=== PATIENT | male | born 1945 | race Caucasian/White ===

== ENCOUNTER 2018-04-30 05:39 | Outpatient (CLI) | payer MEDICARE, MEDICAID ==
[~2018-04-30] VITALS: Ht 185.4 cm; Wt 99.8 kg
[~2018-04-30 05:39] MED LIST: AMLO5TAB2 PO; BENA10TA PO; BNZ10T PO; HUM100VI4; HUM100VI4 SQ; HYDR1TAB PO; TMSL.4C PO
[2018-04-30] MEDS ORDERED: ASPI-586 PO (12:09)
[2018-04-30] MEDS ORDERED: LORA10TA7 PO (12:09)
[2018-04-30] MEDS ORDERED: HUM100VI15 SQ (12:09)
[2018-04-30] MEDS ORDERED: MULT-1056 PO (12:09)
[2018-04-30] MEDS ORDERED: BENA5TAB3 PO (12:09)
[2018-04-30] MEDS ORDERED: TAMS0.4C2 PO (12:09)
[2018-04-30] MEDS ORDERED: SIMV10TA PO (12:09)
[2018-04-30] MEDS ORDERED: POTA10TA36 PO (12:09)
[2018-04-30] MEDS ORDERED: ESCI10TA PO (12:09)
[2018-04-30] MEDS ORDERED: PANT40TA3 PO (12:09)
[2018-04-30] MEDS ORDERED: ALPR0.5T PO (12:09)
== END 2018-04-30 12:13 ==
LOC: PREOP 05:39
PROVIDERS: ATTEND Specialist
DX: Z01.818 Encounter for other preprocedural examination (principal)

== ENCOUNTER 2018-05-02 07:05 | Day surgery (SDC) | payer MEDICARE, MEDICAID ==
[~2018-05-02] VITALS: Ht 185.4 cm; Wt 99.8 kg
[~2018-05-02 07:05] MED LIST changes: +ALPR0.5T PO; +ASPI-586 PO; +BENA5TAB3 PO; +ESCI10TA PO; +HUM100VI15 SQ; +LORA10TA7 PO; +MULT-1056 PO; +PANT40TA3 PO; +POTA10TA36 PO; +SIMV10TA PO; +TAMS0.4C2 PO
[2018-05-02] MEDS ORDERED: TIMOLOL MALEATE 0.5% 5 ML (TIMOPTIC) BTL OU PRN (07:15)
[2018-05-02] MEDS ORDERED: LIDOCAINE PF 1% 2 ML AMP IR PRN (07:15)
[2018-05-02] MEDS ORDERED: MOXIFLOXACIN OPHTH SOLN 5 MG/ML 0.3 ML SYRINGE OP ONE (07:15)
[2018-05-02] MEDS ORDERED: POVIDONE (BETADINE) OPHTH SOLN 5% 30 ML OP ONE (07:15)
[2018-05-02] MEDS: TETRACAINE 0.5% OPHTH SOLN 4 ML BTL (SINGLE DOSE ONLY) OU PRN ×4 (07:23→07:40)
[2018-05-02] MEDS: CYCLOPENTOLATE 1% (CYCLOGYL) 2 ML DROPS OP SCH ×3 (07:30→07:40)
[2018-05-02] MEDS: PHENYLEPHRINE 10% OPHTH (NEO-SYN) 5 ML BTL OU SCH ×3 (07:30→07:40)
[2018-05-02 07:33] VITALS: BP 132/86
[2018-05-02] MEDS ORDERED: MIDAZOLAM 2 MG/2 ML (VERSED) VIAL ONE (07:41)
--- NOTE | 2018-05-02 07:45 | Ophthalmologist Pre-Op Note ---
Pre-Operative Progress Note H&P Reviewed The H&P was reviewed, patient examined and no changes noted. Date H&P Reviewed: May 02, 2018 Time H&P Reviewed: 07:45 Pre-Op Dx Cataract, Left Eye BEBO CONNER MD May 02, 2018 07:45
--- NOTE | 2018-05-02 08:16 | Ophthalmology Operative Report ---
Cataract, Miotic Pupil PREOPERATIVE DIAGNOSIS: 1. Cataract Left Eye 2. Miotic Pupil/IFIS POSTOPERATIVE DIAGNOSIS: 1. Cataract Left Eye 2. Miotic Pupil/IFIS PROCEDURE: 1. Cataract removal and placement of posterior chamber implant, left eye 2. Pupillary expansion with malyugin ring SURGEON: Cr Conner ANESTHESIA: Topical with sedation COMPLICATIONS: None ESTIMATED BLOOD LOSS: Minimal DESCRIPTION OF PROCEDURE: After proper informed consent was obtained, the patient, a 72 male, was taken to the Operating Room and the left eye was anesthetized with Tetracaine. The eye was then prepped and draped in the usual manner. A wire lid speculum was placed. A paracentesis was made at the left hand position. Preservative free lidocaine was injected into anterior chamber followed by viscoelastic. A clear corneal incision was made in the temporal position. The malyugin ring was injected into the anterior chamber and the pupil was dilated. A capsulorrhexis was preformed and the central nuclear and cortical material were removed. The posterior capsule was polished and Ortiz 22.5 AU00T0 IOL was placed into the capsular bag. The myalgian ring was removed. The residual viscoelastic was aspirated and the balanced saline solution was injected into the anterior chamber. Moxifloxacin was injected into the anterior chamber. The wound was checked and found to be water tight. The patient tolerated the procedure well without complications. [Limbal Relaxing Incision placed ] [ ]mm at [ ]. CR CONNER MD May 02, 2018 08:16
[2018-05-02 08:27] VITALS: BP 147/68
[2018-05-02] MEDS ORDERED: acetaZOLAMIDE ER 500 MG CAP (DIAMOX SEQUELS) PO ONE (09:00)
--- NOTE | 2018-05-02 12:12 | Anesthesia-General Post-Op ---
MAC Patient Condition Mental Status/LOC: Same as Preop Cardiovascular: Satisfactory Nausea/Vomiting: Absent Respiratory: Satisfactory Pain: Controlled Complications: Absent Post Op Complications Complications None Follow Up Care/Instructions Patient Instructions None needed. Anesthesiology Discharge Order Discharge Order Patient is doing well, no complaints, stable vital signs, no apparent adverse anesthesia problems. No complications reported per nursing. NESTOR MOLINA CRNA May 02, 2018 12:12
--- OUTSIDE RECORDS SUMMARY | 2018-05-04 07:20 | XMS REPORT | CCD ---
Author Author SYLVIA COLLINS Unknown Address [address] [place] [address] Care Team Providers Care Safety Glass Installer Name Role Phone DAVE RAMOS, INGRIS Monteros Allergies Allergy Code Allergy Type Reaction Status No Known Allergies 0 Drug allergy Active Active Medications No Active Medications Problems Unknown or Not Available. Procedures Procedure Code Procedure Type Date Egd transoral biopsy single/multiple 13989 CPT 01/17/2016 Colsc flx w/removal lesion by hot bx forceps; (-[place] diagn 87387 CPT 01/17/2016 BEDSIDE GLUCOSE [id number] SNOMED CT 01/17/2016 PATHOLOGY ORDER [id number] SNOMED CT 01/17/2016 Results BEDSIDE GLUCOSE - Collect Date/Time: 01/17/2016 06:21 Test Name Code Test Result Test Units Test Ref Range GLUCOSE POCT 174 MG/DL L=70 H=100 Function Status Unknown or Not Available. History of Immunizations Unknown or Not Available. Plan of Treatment Unknown or Not Available. Social History Smoking Status Code Start Date End Date Never smoker [id number] Vital Signs Vital Sign Value Unit Date/Time Recent/Initial? Weight Measured 250 [lb_av] 01/12/2016 12:26 Initial VS Height 71 [in_i] 01/12/2016 12:26 Initial VS BMI (Body Mass Index) 34.87 kg/m2 01/12/2016 12:26 Initial VS BSA (Body Surface Area) 2.38 m2 01/12/2016 12:26 Initial VS Function Status Unknown or Not Available. Goals Unknown or Not Available. ASSESSMENTS Unknown or Not Available. Health Concerns Section Unknown or Not Available.
--- OUTSIDE RECORDS SUMMARY | 2018-05-04 07:22 | XMS REPORT ---
Author Author ADRYAN GUTIÉRREZ [facility] Address [address] [place], [place] [id number] Care Team Providers Care Paraplanner Name Role Phone ADRYAN GUTIÉRREZ PCP ADRYAN GUTIÉRREZ PreferredProvider Allergies and Adverse Reactions Name Reaction Notes NO KNOWN DRUG ALLERGIES Plan of Treatment Planned Activity Comments Planned Date Planned Time Plan/Goal Hgb A1c 12/08/2013 12:00 AM Medications Active Name Start Date Estimated Completion Date SIG Comments Humulin 70/30 100 unit/mL (70-30) subcutaneous suspension 03/09/2013 50 UNITS TWICE DAILY Flonase 50 mcg/actuation nasal spray,suspension 12/15/2013 inhale 1 spray by nasal route 2 times a day benazepril 5 mg oral tablet 01/14/2014 TAKE 1 TABLET (5 MG) BY ORAL ROUTE ONCE DAILY BD Insulin Syringe DIRECTED 06/30/2014 0.5ml 31Guage 8mm 07/17 [facility] escitalopram oxalate 20 mg oral tablet 12/16/2014 TAKE 1 TABLET BY MOUTH DAILY ProAir HFA 90 mcg/actuation inhalation HFA aerosol inhaler 03/10/2015 inhale 1 puff (90 mcg) by inhalation route every 6 hours as needed escitalopram oxalate 20 mg oral tablet 04/18/2015 TAKE 1 TABLET BY MOUTH DAILY Flomax 0.4 mg oral capsule,extended release 24hr 10/13/2015 take 2 capsules (0.8 mg) by oral route once daily 1/2 hour following the same meal each day benazepril 5 mg oral tablet 10/13/2015 TAKE 1 TABLET (5 MG) BY ORAL ROUTE ONCE DAILY ipratropium-albuterol 0.5 mg-3 mg(2.5 mg base)/3 mL inhalation solution for nebulization 10/13/2015 inhale 3 milliliters by nebulization route 4 times per day and as needed, up to 6 doses per day Humulin 70/30 100 unit/mL (70-30) subcutaneous suspension 11/09/2015 INJECT 70 UNITS TWICE DAILY - E11.65 Humulin 70/30 100 unit/mL (70-30) subcutaneous suspension 04/09/2016 INJECT 70 UNITS TWICE DAILY - E11.65 hydroxyzine HCl 25 mg oral tablet 05/04/2016 take 2 tablet at HS for itching citalopram 40 mg oral tablet 07/05/2016 take 1 tablet (40 mg) by oral route once daily Flomax 0.4 mg oral capsule,extended release 24hr 08/08/2016 take 2 capsules (0.8 mg) by oral route once daily 1/2 hour following the same meal each day Flomax 0.4 mg oral capsule,extended release 24hr 08/08/2016 take 2 capsules (0.8 mg) by oral route once daily 1/2 hour following the same meal each day COMP- BENADRYL/MALOXX/NYSTAT 5ML BY MOUTH FOUR TIMES DAILY SWISH AND SPIT Percocet 10-325 mg oral tablet 08/30/2016 take 1 tablet by oral route every 6 hours as needed escitalopram oxalate 10 mg oral tablet 11/07/2016 05/01/2018 TAKE 1 TABLET (10 MG) BY ORAL ROUTE ONCE DAILY Klor-Con 10 10 mEq oral tablet extended release 12/13/2016 take 1 tablet by oral route daily for 90 days Protonix 40 mg oral tablet,delayed release (DR/EC) 01/22/2017 take 1 tablet (40 mg) by oral route once daily albuterol sulfate 2.5 mg /3 mL (0.083 %) inhalation solution for nebulization 05/29/2017 used in Small Volume Nebulizer QID PRN simvastatin 20 mg oral tablet 06/25/2017 TAKE ONE TABLET BY MOUTH ONCE DAILY IN THE THE EVENING nitroglycerin 0.4 mg sublingual tablet, sublingual 08/01/2017 place 1 tablet (0.4 mg) by sublingual route PRN fluticasone 50 mcg/actuation nasal spray,suspension 08/27/2017 spray 1 spray (50 mcg) in each nostril by intranasal route once daily promethazine-codeine 6.25-10 mg/5 mL oral syrup 08/29/2017 take 5 milliliters by oral route every 6 hours as needed, not to exceed 30 mL in 24 hours Klor-Con 10 10 mEq oral tablet extended release 09/09/2017 take 1 tablet by oral route daily for 90 days pantoprazole 40 mg oral tablet,delayed release (DR/EC) 12/23/2017 TAKE 1 TABLET BY MOUTH DAILY Xanax 0.5 mg oral tablet 12/25/2017 take 1 tablet (0.5 mg) by oral route 3 times per day Valtrex 500 mg oral tablet 12/25/2017 take 1 tablet (500 mg) by oral route 2 times per day tamsulosin 0.4 mg oral capsule 01/22/2018 TAKE 2 CAPSULES (0.8 MG) BY ORAL ROUTE ONCE DAILY 1/2 HOUR FOLLOWING THE SAME MEAL EACH DAY Lexapro 10 mg oral tablet 02/06/2018 take 1 tablet (10 mg) by oral route once daily escitalopram oxalate 10 mg oral tablet 02/06/2018 TAKE 1 TABLET (10 MG) BY ORAL ROUTE ONCE DAILY alprazolam 0.5 mg oral tablet 03/05/2018 TAKE ONE TABLET BY MOUTH THREE TIMES DAILY Name Start Date Expiration Date SIG Comments Norvasc 5 mg oral tablet 03/17/2009 06/15/2009 1QD - TAKE ONE TABLET BY MOUTH EVERY DAY Zovirax 800 mg oral tablet 03/17/2009 03/25/2009 1Q4HWA - TAKE ONE TABLET BY MOUTH EVERY 4 HOURS WHILE AWAKE Zantac 150 mg oral tablet 03/18/2009 07/16/2009 take 1 tablet (150 mg) by oral route 2 times per day for 30 days Darvocet-N 100 100-650 mg oral tablet 12/06/2009 01/05/2010 take 1 tablet by oral route every 4-6 hours as needed for pain for 30 days indomethacin 50 mg oral capsule 01/18/2011 take 1 capsule (50 mg) by oral route 3 times per day with food Flagyl 500 mg oral tablet 02/16/2011 take 1 tablet by oral route 3 times a day Cipro 500 mg oral tablet 02/16/2011 take 1 tablet (500 mg) by oral route 2 times per day Plavix 75 mg oral tablet 05/18/2011 09/15/2011 take 1 tablet (75 mg) by oral route once daily Levaquin 750 mg oral tablet 07/24/2011 08/03/2011 take 1 tablet (750 mg) by oral route once daily for 10 days Zocor 20 mg oral tablet 10/01/2011 12/30/2011 take 1 tablet (20 mg) by oral route once daily in the evening Percocet 7.5-325 mg oral tablet 10/16/2011 take 1 tablet by oral route every 4 hours as needed for pain Bactrim DS 800-160 mg oral tablet 03/14/2012 03/14/2012 take 1 tablet by oral route 2 times a day Zithromax Z-Heri 250 mg oral tablet 03/14/2012 03/24/2012 take 2 tablets (500 mg) by oral route once daily for 1 day then 1 tablet (250 mg) by oral route once daily for 4 days Cipro 500 mg oral tablet 05/19/2012 take 1 tablet (500 mg) by oral route 2 times per day Bactrim DS 800-160 mg oral tablet 12/01/2012 12/11/2012 take 1 tablet by oral route 2 times a day for 10 days Humulin 70/30 100 unit/mL (70-30) subcutaneous suspension 01/15/20132013 INJECT 50 UNITS SUBCUTANEOUSLY TWICE DAILY Cipro 500 mg oral tablet 01/26/2013 take 1 tablet (500 mg) by oral route 2 times per day doxycycline hyclate 100 mg oral capsule 02/13/2013 02/23/2013 take 1 capsule (100 mg) by oral route every 12 hours for 10 days Vinnie-Tab 500 mg oral tablet,delayed release (DR/EC) 02/27/2013 03/09/2013 take 1 tablet by oral route 2 times a day for 10 days albuterol sulfate 90 mcg/actuation inhalation HFA aerosol inhaler 03/09/201307/07/2013 inhale 2 puffs by inhalation route every 6 hours as needed for 30 days hydrocodone-acetaminophen 7.5-500 mg oral tablet 03/09/2013 take 1 tablet by oral route every 4-6 hours as needed for pain Lomotil 2.5-0.025 mg oral tablet 03/09/2013 take 2 tablets (5 mg) by oral route 4 times per day as needed for radiation diarrhea Phenergan-Codeine 6.25-10 mg/5 mL oral syrup 04/20/2013 take 5 milliliters by oral route 4 times a day Levaquin 500 mg oral tablet 04/20/2013 04/30/2013 take 1 tablet (500 mg) by oral route once daily for 10 days Levaquin 500 mg oral tablet 08/17/2013 08/27/2013 take 1 tablet (500 mg) by oral route once daily for 10 days Levaquin 500 mg oral tablet 09/09/2013 09/19/2013 take 1 tablet (500 mg) by oral route once daily for 10 days Zithromax Z-Heri 250 mg oral tablet 09/30/2013 take 2 tablets (500 mg) by oral route once daily for 1 day then 1 tablet (250 mg) by oral route once daily for 4 days Zithromax Z-Heri 250 mg oral tablet 12/30/2013 take 2 tablets (500 mg) by oral route once daily for 1 day then 1 tablet (250 mg) by oral route once daily for 4 days Tessalon Perles 100 mg oral capsule 12/30/2013 take 1 capsule (100 mg) by oral route every 4 hours as needed Zithromax Z-Heri 250 mg oral tablet 04/11/2014 take 2 tablets (500 mg) by oral route once daily for 1 day then 1 tablet (250 mg) by oral route once daily for 4 days Percocet 7.5-325 mg oral tablet 04/11/2014 take 1 tablet by oral route every 6 hours as needed Xanax 0.5 mg oral tablet 02/03/2015 08/02/2015 take 1 tablet by oral route 3 times a day for 30 days Zithromax Z-Heri 250 mg oral tablet 03/10/2015 03/15/2015 take 2 tablets (500 mg ) by oral route once daily for 1 day then 1 tablet (250 mg) by oral route once daily for 4 days Flonase 50 mcg/actuation nasal spray,suspension 06/16/2015 inhale 1 spray by nasal route 2 times a day diazepam 5 mg oral tablet 01/07/2016 06/05/2016 take 1 tablet (5 mg) by oral route 2 times per day for 30 days Levaquin 500 mg oral tablet 04/02/2016 04/12/2016 take 1 tablet (500 mg) by oral route once daily for 10 days Bactrim DS 800-160 mg oral tablet 05/04/2016 05/14/2016 take 1 tablet by oral route 2 times a day for 10 days Bactroban 2 % topical cream 05/04/2016 apply a small amount to the affected area by topical route 3 times per day benazepril 5 mg oral tablet 05/16/2016 11/12/2016 take 1 tablet (5 mg) by oral route once daily for 30 days Symbicort 160-4.5 mcg/actuation inhalation HFA aerosol inhaler 06/19/201610/17 inhale 2 puffs by inhalation route 2 times per day in the morning and evening for 30 days Levaquin 500 mg oral tablet 06/13/2016 06/23/2016 take 1 tablet (500 mg) by oral route once daily for 10 days Zofran ODT 4 mg oral tablet,disintegrating 01/15/2017 01/21/2017 take 2 tablets (8 mg) and place on top of the tongue where they will dissolve, then swallow by oral route every 8 hours Zithromax Z-Heri 250 mg oral tablet 03/12/2017 take 2 tablets (500 mg) by oral route once daily for 1 day then 1 tablet (250 mg) by oral route once daily for 4 days Humulin 70/30 U-100 Insulin 100 unit/mL (70-30) subcutaneous suspension 201701/18/2018 INJECT 70 UNITS TWICE DAILY benazepril 5 mg oral tablet 05/31/2017 12/27/2017 take 1 tablet (5 mg) by oral route once daily for 30 days Patanol 0.1 % ophthalmic (eye) drops 09/12/2017 09/19/2017 instill 1 - 2 drops into affected eye(s) by ophthalmic route 2 times per day at an interval of 6 to 8 hours for 7 days Zithromax Z-Heri 250 mg oral tablet 01/27/2018 02/01/2018 take 2 tablets (500 mg) by oral route once daily for 1 day then 1 tablet (250 mg) by oral route once daily for 4 days Levaquin 500 mg oral tablet 03/14/2018 03/24/2018 take 1 tablet (500 mg) by oral route once daily for 10 days Discontinued Name Start Date Discontinued Date SIG Comments Percocet 5-325 mg oral tablet 02/28/2009 12/06/2009 take 1 tablet by oral route every 6 hours as needed Darvocet-N 100 Oral tablet 09/01/2009 12/06/2009 take 1 tabletby oral route every 4 hours Patanol 0.1 % ophthalmic drops 11/01/2013 12/10/2015 instill 1 drop into affected eye(s) by ophthalmic route 2 times per day at an interval of 6 to 8 hours Spiriva with HandiHaler 18 mcg inhalation capsule, w/inhalation device 201406/19/2016 inhale 1 capsule (18 mcg) by inhalation route once daily Only 10-325 mg oral tablet 03/10/2015 12/10/2015 take 1 tablet by oral route every 6 hours as needed for pain Levaquin 500 mg oral tablet 10/16/2015 12/10/2015 take 1 tablet (500 mg) by oral route once daily Ventolin HFA 90 mcg/actuation inhalation HFA aerosol inhaler 12/29/20152017 inhale 1 puff (90 mcg) by inhalation route every 6 hours as needed Problem List Description Status Onset Anxiety Active Arthritis unspecified Active Diabetes Mellitus, Type II Active Hypertension Active Osteoarthritis Active Chronic Obstructive Pulmonary Disease Active arteriosclerotic heart disease Active Coronary artery disease Active Prostate Cancer Active Bronchitis, chronic Active 12/30/2013 Constipation Active 02/18/2014 Chronic pain Active 04/11/2014 History of atrial fibrillation Active 06/14/2014 Learning difficulty involving reading Active 12/10/2015 Pickwickian syndrome Active 12/10/2015 COPD (chronic obstructive pulmonary disease) Active 12/10/2015 Onychomycosis Active 09/27/2016 Vital Signs Date Time BP-Sys(mm[Hg] BP-Darline(mm[Hg]) HR(bpm) RR(rpm) Temp WT HT HC BMI BSA BMI Percentile O2 Sat(%) 04/14/2018 2:42:00 PM 112 mmHg 78 mmHg 78 bpm 16 rpm 98.2 F 263 lbs 98 % 10/29/2017 8:11:00 AM 100 mmHg 60 mmHg 70 bpm 18 rpm 96.5 F 268 lbs 73 in 35.36 kg/m2 2.5022 m 95 % 09/10/2017 9:14:00 AM 138 mmHg 74 mmHg 65 bpm 18 rpm 98.2 F 269 lbs 72 in 36.4826 kg/m 2.49 m2 98 % 08/26/2017 9:48:00 AM 124 mmHg 80 mmHg 80 bpm 18 rpm 98.1 F 271 lbs 72 in 36.75 kg/m2 2.4989 m 98 % 05/29/2017 1:44:00 PM 142 mmHg 80 mmHg 70 bpm 18 rpm 94 F 266 lbs 72 in 36.0757 kg/m 2.48 m2 96 % 01/28/2017 10:23:00 AM 142 mmHg 80 mmHg 68 bpm 16 rpm 97.1 F 263 lbs 72 in 35.67 kg/m2 2.4617 m 98 % 11/09/2016 6:33:00 AM 142 mmHg 84 mmHg 72 bpm 16 rpm 98.2 F 255 lbs 72 in 34.5839 kg/m 2.42 m2 95 % 10/16/2016 1:01:00 PM 118 mmHg 74 mmHg 48 bpm 16 rpm 98 F 253 lbs 72 in 34.31 kg/m2 2.4145 m 98 % 10/03/2016 2:19:00 PM 112 mmHg 60 mmHg 70 bpm 16 rpm 97.4 F 263 lbs 96 % 10/01/2016 10:07:00 AM 92 mmHg 62 mmHg 82 bpm 16 rpm 95.3 F 72 in 96 % 09/28/2016 9:56:00 AM 132 mmHg 80 mmHg 80 bpm 16 rpm 97.7 F 258 lbs 72 in 34.99 kg/m2 2.4382 m 95 % 09/27/2016 5:13:00 PM 126 mmHg 84 mmHg 78 bpm 16 rpm 97.4 F 258 lbs 72 in 34.9907 kg/m 2.44 m2 96 % 06/18/2016 1:13:00 PM 114 mmHg 72 mmHg 76 bpm 18 rpm 94.2 F 258 lbs 72 in 34.99 kg/m2 2.4382 m 96 % 06/13/2016 1:04:00 PM 128 mmHg 60 mmHg 74 bpm 18 rpm 96.1 F 260 lbs 72 in 35.262 kg/m 2.45 m2 95 % 05/04/2016 11:21:00 AM 108 mmHg 70 mmHg 86 bpm 18 rpm 97.4 F 260.375 lbs 72 in 35.31 kg/m2 2.4494 m 95 % 04/02/2016 6:49:00 AM 132 mmHg 86 mmHg 86 bpm 16 rpm 97.2 F 259 lbs 72 in 35.1264 kg/m 2.44 m2 98 % 01/09/2016 1:55:00 PM 118 mmHg 64 mmHg 66 bpm 20 rpm 96.6 F 259 lbs 72 in 35.13 kg/m2 2.443 m 96 % 01/06/2016 11:43:00 AM 125 mmHg 78 mmHg 60 bpm 16 rpm 97.8 F 257 lbs 72 in 34.8551 kg/m 2.43 m2 98 % 12/09/2015 10:26:00 AM 125 mmHg 72 mmHg 68 bpm 16 rpm 98.2 F 254 lbs 74 in 32.61 kg/m2 2.4526 m 96 % 10/13/2015 10:07:00 AM 118 mmHg 68 mmHg 64 bpm 16 rpm 97.4 F 259 lbs 72 in 35.1264 kg/m 2.44 m2 98 % 07/15/2015 11:35:00 AM 135 mmHg 70 mmHg 65 bpm 18 rpm 97.4 F 254.375 lbs 72 in 34.50 kg/m2 2.421 m 95 % 06/16/2015 10:56:00 AM 135 mmHg 78 mmHg 80 bpm 18 rpm 98 F 255 lbs 95 % 03/10/2015 10:05:00 AM 132 mmHg 88 mmHg 62 bpm 16 rpm 96.7 F 255 lbs 72 in 34.5839 kg/m 2.424 m 95 % 11/26/2014 10:43:00 AM 130 mmHg 70 mmHg 70 bpm 20 rpm 97.8 F 252 lbs 72 in 34.18 kg/m2 2.41 m2 96 % 08/09/2014 10:53:00 AM 100 mmHg 70 mmHg 80 bpm 18 rpm 96.4 F 256 lbs 72 in 34.7195 kg/m 2.4288 m 96 % 06/16/2014 10:58:00 AM 120 mmHg 70 mmHg 66 bpm 18 rpm 97.3 F 255 lbs 72 in 34.58 kg/m2 2.42 m2 97 % 06/11/2014 11:32:00 AM 110 mmHg 70 mmHg 70 bpm 20 rpm 95.9 F 251 lbs 72 in 34.04 kg/m2 2.4049 m 94 % 05/31/2014 10:38:00 AM 95 mmHg 60 mmHg 80 bpm 22 rpm 97.5 F 256 lbs 71 in 35.7044 kg/m 2.41 m2 94 % 05/03/2014 10:30:00 AM 125 mmHg 70 mmHg 71 bpm 18 rpm 96.5 F 258 lbs 72 in 34.99 kg/m2 2.4382 m 95 % 04/06/2014 10:13:00 AM 102 mmHg 68 mmHg 71 bpm 18 rpm 96.6 F 261.375 lbs 72 in 35.4485 kg/m 2.45 m2 97 % 02/17/2014 10:14:00 AM 138 mmHg 70 mmHg 66 bpm 22 rpm 94.6 F 256 lbs 72 in 34.72 kg/m2 2.4288 m 95 % 12/28/2013 10:00:00 AM 126 mmHg 72 mmHg 74 bpm 22 rpm 95.6 F 256 lbs 72 in 34.7195 kg/m 2.43 m2 95 % 10/30/2013 10:26:00 AM 134 mmHg 64 mmHg 68 bpm 16 rpm 96.6 F 255 lbs 72 in 34.58 kg/m2 2.424 m 97 % 09/29/2013 11:25:00 AM 102 mmHg 68 mmHg 61 bpm 18 rpm 96.7 F 257.5 lbs 72 in 34.9229 kg/m 2.44 m2 95 % 09/07/2013 10:11:00 AM 154 mmHg 80 mmHg 74 bpm 24 rpm 96.3 F 254 lbs 72 in 34.45 kg/m2 2.4193 m 97 % 08/17/2013 10:06:00 AM 118 mmHg 62 mmHg 76 bpm 24 rpm 97.2 F 254 lbs 72 in 34.4482 kg/m 2.42 m2 97 % 05/29/2013 8:47:00 AM 140 mmHg 78 mmHg 60 bpm 24 rpm 98.5 F 253 lbs 72 in 34.31 kg/m2 2.4145 m 96 % 04/27/2013 10:04:00 AM 112 mmHg 60 mmHg 72 bpm 24 rpm 96 F 252 lbs 72 in 34.177 kg/m 2.41 m2 96 % 04/17/2013 10:09:00 AM 130 mmHg 64 mmHg 70 bpm 22 rpm 97.1 F 249 lbs 72 in 33.77 kg/m2 2.3953 m 95 % 03/30/2013 10:30:00 AM 110 mmHg 60 mmHg 72 bpm 24 rpm 96.6 F 250 lbs 72 in 33.9057 kg/m 2.40 m2 95 % 01/26/2013 9:54:00 AM 106 mmHg 60 mmHg 76 bpm 24 rpm 96.4 F 250 lbs 72 in 33.91 kg/m2 2.4001 m 98 % 12/01/2012 9:55:00 AM 120 mmHg 70 mmHg 66 bpm 18 rpm 98.8 F 252 lbs 72 in 34.177 kg/m 2.41 m2 96 % 06/23/2012 10:35:00 AM 120 mmHg 60 mmHg 76 bpm 20 rpm 95.4 F 249 lbs 72 in 33.77 kg/m2 2.3953 m 96 % 05/19/2012 9:43:00 AM 130 mmHg 60 mmHg 90 bpm 24 rpm 96.3 F 251.312 lbs 72 in 34.0838 kg/m 2.41 m2 94 % 01/08/2012 1:21:00 PM 100 mmHg 65 mmHg 78 bpm 18 rpm 95.6 F 242 lbs 72 in 32.82 kg/m2 2.3614 m 97 % 12/11/2011 10:36:00 AM 126 mmHg 62 mmHg 76 bpm 18 rpm 95.7 F 235 lbs 74 in 30.1719 kg/m 2.36 m2 98 % 10/09/2011 8:47:00 AM 140 mmHg 80 mmHg 88 bpm 225 lbs 72 in 30.52 kg/m2 2.277 m 08/28/2011 9:30:00 AM 108 mmHg 72 mmHg 76 bpm 228 lbs 72 in 30.92 kg/m2 2.29 m2 97 % 08/01/2011 8:51:00 AM 112 mmHg 64 mmHg 64 bpm 229 lbs 72 in 31.0577 kg/m 2.2971 m 97 % 07/17/2011 10:41:00 AM 85 mmHg 58 mmHg 77 bpm 20 rpm 96.8 F 229 lbs 72 in 31.06 kg/m2 2.30 m2 97 % 07/11/2011 9:33:00 AM 108 mmHg 62 mmHg 82 bpm 229 lbs 72 in 31.0577 kg/m 2.2971 m 97 % 06/22/2011 10:38:00 AM 96 mmHg 64 mmHg 80 bpm 229 lbs 72 in 31.06 kg/m2 2.30 m2 96 % 05/15/2011 10:21:00 AM 110 mmHg 68 mmHg 78 bpm 225 lbs 72 in 30.5152 kg/m 2.277 m 98 % 04/10/2011 9:55:00 AM 118 mmHg 72 mmHg 68 bpm 224 lbs 72 in 30.38 kg/m2 2.27 m2 04/03/2011 8:35:00 AM 118 mmHg 72 mmHg 80 bpm 224 lbs 72 in 30.3795 kg/m 2.2719 m 02/16/2011 9:22:00 AM 108 mmHg 66 mmHg 71 bpm 224 lbs 72 in 30.38 kg/m2 2.27 m2 97 % 01/18/2011 9:52:00 AM 124 mmHg 68 mmHg 60 bpm 224 lbs 72 in 30.3795 kg/m 2.2719 m 96 % 08/07/2010 9:26:00 AM 110 mmHg 72 mmHg 80 bpm 222 lbs 96 % 05/15/2010 11:11:00 AM 112 mmHg 60 mmHg 65 bpm 224 lbs 95 % 02/16/2010 8:14:00 AM 114 mmHg 72 mmHg 72 bpm 221 lbs 10/14/2009 9:08:00 AM 122 mmHg 76 mmHg 78 bpm 220 lbs 98 % 07/11/2009 10:37:00 AM 120 mmHg 74 mmHg 75 bpm 228 lbs 95 % 02/28/2009 9:40:00 AM 128 mmHg 74 mmHg 74 bpm 229 lbs 97 % Social History Name Description Comments Alcohol Never Tobacco Former smoker 8th grade Active but no formal exercise Uses seatbelts History of Procedures Date Ordered Description Order Status 03/25/2015 12:00 AM Decadron, Per 1 Mg [facility]# [address]-69 Reviewed 03/25/2015 12:00 AM Depo-Medrol, Per 80 Mg [facility]#3523-5864-77 Reviewed 03/25/2015 12:00 AM Rocephin 1 gram [facility]#7997-9310-83 Reviewed 06/16/2015 12:00 AM Decadron, Per 1 Mg [facility]# [address]-48 Reviewed 06/16/2015 12:00 AM Rocephin 1 gram [facility]#9824-0843-03 Reviewed 07/14/2015 12:00 AM Removal impacted cerumen using irrigation/lavage, unilateral Reviewed 04/03/2011 12:00 AM ROUTINE VENIPUNCTURE Reviewed 04/03/2011 12:00 AM COMPLETE CBC AUTOMATED Reviewed 04/03/2011 12:00 AM COMPREHEN METABOLIC PANEL Reviewed 04/03/2011 12:00 AM GLYCOSYLATED HEMOGLOBIN TEST Reviewed 04/03/2011 12:00 AM LIPID PANEL Reviewed 04/03/2011 12:00 AM Prostate Cancer Screening PSA Reviewed 04/03/2011 12:00 AM MICROALBUMIN SEMIQUANT Reviewed 04/03/2011 12:00 AM THER/PROPH/DIAG INJ SC/IM Reviewed 04/03/2011 12:00 AM Decadron Inj.1mg-(St.Tr) [facility] #[id number] Reviewed 04/03/2011 12:00 AM Depo-Medrol 80 Mg Im/St Tr [facility] 0009-371985 Reviewed 10/13/2015 12:00 AM Decadron, Per 1 Mg [facility]# [address]-60 Reviewed 10/13/2015 12:00 AM Rocephin 1 gram [facility]#5798-0046-70 Reviewed 07/11/2011 12:00 AM THER/PROPH/DIAG INJ SC/IM Reviewed 07/11/2011 12:00 AM Decadron Inj.1mg-(St.Tr) [facility] #[id number] Reviewed 07/11/2011 12:00 AM Depo-Medrol 80 Mg Im/St Tr [facility] 0009-783824 Reviewed 07/11/2011 12:00 AM Rocephin, Per 250MG - 1 Gram Vial [facility] [id number]-Qi Paul Reviewed 04/01/2016 12:00 AM THERAPEUTIC PROPHYLACTIC/DX INJECTION SUBQ/IM Reviewed 04/01/2016 12:00 AM Decadron 8mg Injection, [facility] Medicare Reviewed 06/13/2016 12:00 AM THER/PROPH/DIAG INJ SC/IM Reviewed 06/13/2016 12:00 AM Decadron 8mg Injection, [facility] Medicare Reviewed 06/13/2016 12:00 AM Rocephin 1 gram Injection, [facility] Medicare Reviewed 10/09/2011 12:00 AM ROUTINE VENIPUNCTURE Reviewed 10/09/2011 12:00 AM COMPLETE CBC W/AUTO DIFF WBC Reviewed 10/09/2011 12:00 AM COMPREHEN METABOLIC PANEL Reviewed 10/09/2011 12:00 AM GLYCOSYLATED HEMOGLOBIN TEST Reviewed 10/09/2011 12:00 AM LIPID PANEL Reviewed 10/09/2011 12:00 AM MICROALBUMIN SEMIQUANT Reviewed 09/28/2016 12:00 AM THERAPEUTIC PROPHYLACTIC/DX INJECTION SUBQ/IM Reviewed 09/28/2016 12:00 AM Decadron 8mg Injection, [facility] Medicare Reviewed 09/28/2016 12:00 AM Rocephin 1 gram Injection, [facility] Medicare Reviewed 05/20/2009 12:00 AM ROUTINE VENIPUNCTURE Reviewed 05/20/2009 12:00 AM ASSAY OF PSA FREE Reviewed 05/20/2009 12:00 AM ASSAY OF PSA TOTAL Reviewed 01/08/2012 12:00 AM THER/PROPH/DIAG INJ SC/IM Reviewed 01/08/2012 12:00 AM Rocephin 1 gram [facility]#8530-4575-27 Reviewed 01/28/2017 12:00 AM THERAPEUTIC PROPHYLACTIC/DX INJECTION SUBQ/IM Reviewed 01/28/2017 12:00 AM Rocephin 1 gram Injection, [facility] Medicare Reviewed 02/08/2012 12:00 AM Flu Injection 3 Years And Above [facility]# [address]-34 [facility] Reviewed 02/08/2012 12:00 AM PNEUMOCOCCAL VACC 23 EVY IM Reviewed 05/29/2017 12:00 AM THERAPEUTIC PROPHYLACTIC/DX INJECTION SUBQ/IM Reviewed 05/29/2017 12:00 AM Decadron 8mg Injection, [facility] Reviewed 05/19/2012 12:00 AM THER/PROPH/DIAG INJ SC/IM Reviewed 05/19/2012 12:00 AM Decadron, Per 1 Mg [facility]# [address]-73 Reviewed 05/19/2012 12:00 AM Rocephin 1 gram [facility]#5967-6244-19 Reviewed 09/10/2017 12:00 AM COMPLETE CBC W/AUTO DIFF WBC Returned 09/10/2017 12:00 AM COMPREHEN METABOLIC PANEL Returned 09/10/2017 12:00 AM GLYCOSYLATED HEMOGLOBIN TEST Returned 09/10/2017 12:00 AM LIPID PANEL Returned 09/10/2017 12:00 AM ASSAY OF PSA TOTAL Returned 09/10/2017 12:00 AM ASSAY OF PSA FREE Returned 09/10/2017 12:00 AM ROUTINE VENIPUNCTURE Reviewed 06/23/2012 12:00 AM THER/PROPH/DIAG INJ SC/IM Reviewed 06/23/2012 12:00 AM Decadron, Per 1 Mg [facility]# [address]-03 Reviewed 06/23/2012 12:00 AM Depo-Medrol, Per 80 Mg [facility]#0457-0797-96 Reviewed 10/29/2017 12:00 AM THERAPEUTIC PROPHYLACTIC/DX INJECTION SUBQ/IM Reviewed 10/29/2017 12:00 AM Decadron 8mg Injection, [facility] Reviewed 10/29/2017 12:00 AM Depo-Medrol 80mg Injection, [facility] Reviewed 12/01/2012 12:00 AM THER/PROPH/DIAG INJ SC/IM Reviewed 12/01/2012 12:00 AM Decadron, Per 1 Mg [facility]# [address]-82 Reviewed 12/01/2012 12:00 AM Depo-Medrol, Per 80 Mg [facility]#8324-3819-43 Reviewed 07/11/2009 12:00 AM Toradol 15 Mg,[facility]#[id number] Reviewed 01/26/2013 12:00 AM THER/PROPH/DIAG INJ SC/IM Reviewed 01/26/2013 12:00 AM Decadron, Per 1 Mg [facility]# [address]-14 Reviewed 04/17/2013 12:00 AM THER/PROPH/DIAG INJ SC/IM Reviewed 04/17/2013 12:00 AM Decadron, Per 12 Mg [facility]# [address]-39 Reviewed 04/27/2013 12:00 AM THER/PROPH/DIAG INJ SC/IM Reviewed 04/27/2013 12:00 AM Decadron, Per 12 Mg [facility]# [address]-56 Reviewed 04/27/2013 12:00 AM Rocephin 1 gram [facility]#4660-8149-91 Reviewed 05/29/2013 12:00 AM COMPLETE CBC W/AUTO DIFF WBC Reviewed 05/29/2013 12:00 AM COMPREHEN METABOLIC PANEL Reviewed 05/29/2013 12:00 AM GLYCOSYLATED HEMOGLOBIN TEST Reviewed 05/29/2013 12:00 AM LIPID PANEL Reviewed 05/29/2013 12:00 AM ASSAY OF PSA TOTAL Reviewed 05/29/2013 12:00 AM ROUTINE VENIPUNCTURE Reviewed 05/29/2013 12:00 AM THER/PROPH/DIAG INJ SC/IM Reviewed 05/29/2013 12:00 AM Decadron, Per 12 Mg [facility]# [address]-57 Reviewed 02/16/2010 12:00 AM ROUTINE VENIPUNCTURE Reviewed 02/16/2010 12:00 AM METABOLIC PANEL TOTAL CA Reviewed 02/16/2010 12:00 AM GLYCOSYLATED HEMOGLOBIN TEST Reviewed 08/17/2013 12:00 AM THER/PROPH/DIAG INJ SC/IM Reviewed 08/17/2013 12:00 AM Decadron, Per 1 Mg [facility]# [address]-69 Reviewed 08/17/2013 12:00 AM Rocephin 1 gram [facility]#3980-2456-89 Reviewed 09/07/2013 12:00 AM THER/PROPH/DIAG INJ SC/IM Reviewed 09/07/2013 12:00 AM Decadron, Per 1 Mg [facility]# [address]-45 Reviewed 09/29/2013 12:00 AM THER/PROPH/DIAG INJ SC/IM Reviewed 09/29/2013 12:00 AM Decadron, Per 1 Mg ND# [address]-42 Reviewed 09/29/2013 12:00 AM Rocephin 1 gram ND#2252-9579-76 Reviewed 12/28/2013 12:00 AM THER/PROPH/DIAG INJ SC/IM Reviewed 12/28/2013 12:00 AM Decadron, Per 1 Mg ND# [address]-92 Reviewed 02/17/2014 12:00 AM IMMUNIZATION ADMIN Reviewed 02/17/2014 12:00 AM THER/PROPH/DIAG INJ SC/IM Reviewed 02/17/2014 12:00 AM Decadron, Per 1 Mg ND# [address]-29 Reviewed 02/17/2014 12:00 AM Depo-Medrol, Per 80 Mg ND#3992-1631-53 Reviewed 02/17/2014 12:00 AM Rocephin 1 gram [facility]#5502-4104-69 Reviewed 04/06/2014 12:00 AM THER/PROPH/DIAG INJ SC/IM Reviewed 04/06/2014 12:00 AM Rocephin 1 gram NDC#0881-5765-32 Reviewed 05/03/2014 12:00 AM THER/PROPH/DIAG INJ SC/IM Reviewed 05/03/2014 12:00 AM Decadron, Per 1 Mg [facility]# [address]-32 Reviewed 05/03/2014 12:00 AM Rocephin 1 gram [facility]#8633-6219-07 Reviewed 05/31/2014 12:00 AM THER/PROPH/DIAG INJ SC/IM Reviewed 05/31/2014 12:00 AM Decadron, Per 1 Mg [facility]# [address]-60 Reviewed Results Summary Date and Description Results 02/16/2010 4:41 PM GLYCOHEMOGLOBIN A1C 8.20 %GLUCOSE 196.0 mg/dLSODIUM 137.0 mmol/LPOTASSIUM 4.90 mmol/LCHLORIDE 102.0 mmol/LCO2 23.0 mmol/LBUN 21.0 mg/ dLCREATININE 1.0 mg/dLCALCIUM 9.70 mg/dLAGE 64 GFR NonAA 75 GFR AA 91 eGFR >60 mL/min/1.73 m2eGFR AA* >60 04/03/2011 3:59 PM WBC 5.7 RBC 5.39 HGB 16.50 g/dLHCT 48.40 %MCV 90.0 fLMCH 30.60 pgMCHC 34.10 g/dLRDW SD 42 RDW CV 13.0 %MPV 11.40 fLPLT 235 NRBC# 0.04 NRBC% 0.7 GLUCOSE 207.0 mg/dLSODIUM 137.0 mmol/LPOTASSIUM 5.10 mmol/LCHLORIDE 101.0 mmol/LCO2 27.0 mmol/LBUN 19.0 mg/dLCREATININE 1.0 mg/dLSGOT/AST 19.0 IU/ LSGPT/ALT 26.0 IU/LALK PHOS 118.0 IU/LTOTAL PROTEIN 6.80 g/dLALBUMIN 4.60 g/ dLTOTAL BILI 0.80 mg/dLCALCIUM 9.60 mg/dLAGE 65 GFR NonAA 75 GFR AA 91 eGFR >60 mL/min/1.73 m2eGFR AA* >60 TRIGLYCERIDES 132.0 mg/dLCHOLESTEROL 109.0 mg/dLHDL 32.0 mg/dLTOT CHOL/HDL 3.4 LDL (CALC) 51.0 mg/dLCREAT UR 101.60 mg/ dLMICROALBUMIN UR 32.0 ug/mLALB:CREAT RATIO 31 PSA TOTAL 9.170 ng/ mLGLYCOHEMOGLOBIN A1C 9.40 % 10/09/2011 3:45 PM GLUCOSE 211.0 mg/dLSODIUM 138.0 mmol/LPOTASSIUM 4.30 mmol/ LCHLORIDE 106.0 mmol/LCO2 22.0 mmol/LBUN 17.0 mg/dLCREATININE 0.90 mg/dLSGOT/ AST 10.0 IU/LSGPT/ALT 9.0 IU/LALK PHOS 105.0 IU/LTOTAL PROTEIN 6.50 g/dLALBUMIN 4.30 g/dLTOTAL BILI 0.70 mg/dLCALCIUM 9.50 mg/dLAGE 66 GFR NonAA 84 GFR AA 102 eGFR 60 eGFR AA* 60 TRIGLYCERIDES 137.0 mg/dLCHOLESTEROL 108.0 mg/dLHDL 25.0 mg/ dLTOT CHOL/HDL 4.3 LDL (CALC) 56.0 mg/dLWBC 7.2 RBC 5.06 HGB 15.30 g/dLHCT 45.0 %MCV 89.0 fLMCH 30.20 pgMCHC 34.0 g/dLRDW SD 42 RDW CV 13.20 %MPV 11.0 fLPLT 260 NRBC# 0.00 NRBC% 0.0 GLYCOHEMOGLOBIN A1C 10.50 % 05/29/2013 3:39 PM WBC 4.6 RBC 5.16 HGB 15.70 g/dLHCT 46.90 %MCV 91.0 fLMCH 30.40 pgMCHC 33.50 g/dLRDW SD 46 RDW CV 14.0 %MPV 10.80 fLPLT 208 NRBC# 0.00 NRBC% 0.0 %NEUT 63.0 %%LYMP 23.80 %%MONO 10.0 %%EOS 2.80 %%BASO 0.40 %#NEUT 2.91 #LYMP 1.10 #MONO 0.46 #EOS 0.13 #BASO 0.02 MANUAL DIFF NOT IND GLUCOSE 99.0 mg/dLSODIUM 139.0 mmol/LPOTASSIUM 4.50 mmol/LCHLORIDE 105.0 mmol/LCO2 25.0 mmol/LBUN 20.0 mg/dLCREATININE 1.0 mg/dLSGOT/AST 20.0 IU/LSGPT/ALT 19.0 IU/LALK PHOS 106.0 IU/LTOTAL PROTEIN 6.10 g/dLALBUMIN 3.90 g/dLTOTAL BILI 0.70 mg/ dLCALCIUM 8.60 mg/dLAGE 68 GFR NonAA 74 GFR AA 90 eGFR 60 eGFR AA* 60 PSA TOTAL 0.620 ng/mLTRIGLYCERIDES 87.0 mg/dLCHOLESTEROL 107.0 mg/dLHDL 36.0 mg/dLTOT CHOL /HDL 3.0 LDL (CALC) 54.0 mg/dL History Of Immunizations Name Date Admin Mfg Name Mfg Code Trade Name Lot# Route Inj Vis Given Vis Pub CVX X 02/08/2012 [employer] MSD PNEUMOVAX 23 [id number] Intramuscular Left Deltoid 02/08/2012 06/17/2009 999 Influenza 12/29/2013 Not Entered NE Not Entered Not Entered Not Entered 12/29/2013 03/04/2018 141 History of Past Illness Name Date of Onset Comments Herpes Zoster Feb 28 2009 9:45AM Anxiety Arthritis unspecified Diabetes Mellitus, Type II Hypertension Elevated Prostate Specific Antigen (PSA) May 20 2009 9:51AM Diabetes Mellitus, Type II Jul 11 2009 10:39AM Osteoarthrosis, generalized, multiple sites Jul 11 2009 10:39AM Tendinitis Jul 11 2009 10:39AM Coronary artery disease arteriosclerotic heart disease Chronic Obstructive Pulmonary Disease Osteoarthritis Prostate Cancer Diabetes Mellitus, Type II Oct 14 2009 9:10AM Hyperlipidemia, unspecified Oct 14 2009 9:10AM Depressive Disorder Oct 14 2009 9:10AM Tobacco Abuse Oct 14 2009 9:10AM Chronic Obstructive Pulmonary Disease Oct 14 2009 9:10AM Coronary Artery Disease Oct 14 2009 9:10AM Bronchitis, chronic 12/30/2013 Constipation 02/18/2014 Chronic pain 04/11/2014 Osteoarthrosis Feb 16 2010 8:16AM Diabetes Mellitus, Type II Feb 16 2010 8:16AM Hyperlipidemia, unspecified Feb 16 2010 8:16AM Tobacco Abuse Feb 16 2010 8:16AM Coronary Artery Disease Feb 16 2010 8:16AM History of atrial fibrillation 06/14/2014 Cough May 15 2010 11:12AM Bronchitis, Acute May 15 2010 11:12AM Chronic Obstructive Pulmonary Disease, Decompensated May 15 2010 11:12AM Diabetes Mellitus, Type II May 15 2010 11:12AM Coronary Artery Disease May 15 2010 11:12AM Learning difficulty involving reading 12/10/2015 Pickwickian syndrome 12/10/2015 COPD (chronic obstructive pulmonary disease) 12/10/2015 Colonic Polyps, Personal History of 01/17/16 Hyperplastic polyp @ ascending colon Osteoarthrosis Aug 07 2010 9:25AM Diabetes Mellitus, Type II Aug 07 2010 9:25AM Hyperlipidemia, unspecified Aug 07 2010 9:25AM Coronary Artery Disease Aug 07 2010 9:25AM Chronic pain Aug 07 2010 9:25AM Depression Onychomycosis 09/27/2016 Brain tumor Gout Jan 18 2011 9:49AM Pain in right hand-2nd and 3rd digit Jan 18 2011 9:49AM Diabetes Mellitus, Type II Feb 16 2011 9:24AM Tobacco Abuse Feb 16 2011 9:24AM Constipation Feb 16 2011 9:24AM Abdominal Pain, lower Feb 16 2011 9:24AM Coronary Artery Disease Feb 16 2011 9:24AM Essential Hypertension Apr 03 2011 8:40AM Osteoarthrosis Apr 03 2011 8:40AM Diabetes Mellitus, Type II Apr 03 2011 8:40AM Tobacco Abuse Apr 03 2011 8:40AM Chronic Obstructive Pulmonary Disease Apr 03 2011 8:40AM Coronary Artery Disease Apr 03 2011 8:40AM Osteoarthrosis Apr 10 2011 9:57AM Diabetes Mellitus, Type II Apr 10 2011 9:57AM Tobacco Abuse Apr 10 2011 9:57AM Chronic Obstructive Pulmonary Disease Apr 10 2011 9:57AM Coronary Artery Disease Apr 10 2011 9:57AM Diabetes Mellitus, Type II May 15 2011 10:23AM Anxiety Disorder May 15 2011 10:23AM Insomnia May 15 2011 10:23AM Chronic Obstructive Pulmonary Disease May 15 2011 10:23AM Prostate Cancer May 15 2011 10:23AM Essential Hypertension Jun 22 2011 10:44AM Diabetes Mellitus, Type II Jun 22 2011 10:44AM Tobacco Abuse Jun 22 2011 10:44AM Chronic Obstructive Pulmonary Disease Jun 22 2011 10:44AM Coronary Artery Disease Jun 22 2011 10:44AM Prostate Cancer Jun 22 2011 10:44AM Bronchitis, Acute Jul 11 2011 9:35AM Cough Jul 17 2011 10:42AM Bronchitis, Acute Jul 17 2011 10:42AM Post-nasal drainage Jul 17 2011 10:42AM Bronchitis, Chronic Aug 01 2011 8:53AM Diabetes Mellitus, Type II Aug 28 2011 9:31AM Anxiety Disorder Aug 28 2011 9:31AM Depressive Disorder Aug 28 2011 9:31AM Chronic Obstructive Pulmonary Disease Aug 28 2011 9:31AM Prostate Carcinoma In Situ Aug 28 2011 9:31AM Coronary Artery Disease Aug 28 2011 9:31AM Diabetes Mellitus, Type II Oct 09 2011 8:50AM Hypertension Oct 09 2011 8:50AM Osteoarthritis Oct 09 2011 8:50AM Coronary artery disease Oct 09 2011 8:50AM Prostate Cancer Oct 09 2011 8:50AM Chronic Obstructive Pulmonary Disease Oct 09 2011 8:50AM Depressive Disorder Oct 09 2011 8:50AM Tobacco Abuse Oct 09 2011 8:50AM Essential Hypertension Dec 11 2011 10:36AM Diabetes Mellitus, Type II Dec 11 2011 10:36AM Hyperlipidemia, unspecified Dec 11 2011 10:36AM Anxiety Disorder Dec 11 2011 10:36AM Tobacco Abuse Dec 11 2011 10:36AM Chronic Obstructive Pulmonary Disease Dec 11 2011 10:36AM Osteoarthritis Dec 11 2011 10:36AM Coronary artery disease Dec 11 2011 10:36AM Prostate Cancer Dec 11 2011 10:36AM Upper Respiratory Infection Jan 08 2012 1:21PM Flu Feb 08 2012 1:25PM Need for other prophylactic vaccination ,single disease Feb 08 2012 1:25PM Cough May 19 2012 9:44AM Post-nasal drainage May 19 2012 9:44AM Upper Respiratory Infection May 19 2012 9:44AM Chronic Obstructive Pulmonary Disease May 19 2012 9:44AM Seasonal Allergies Jun 23 2012 10:35AM Headache Dec 01 2012 9:56AM Seasonal Allergies Dec 01 2012 9:56AM Cough Jan 26 2013 9:54AM Bronchitis, Acute Jan 26 2013 9:54AM Diabetes Mellitus, Type II Mar 30 2013 10:30AM Peripheral Vascular Disease Mar 30 2013 10:30AM Chronic Obstructive Pulmonary Disease Mar 30 2013 10:30AM Arthritis unspecified Mar 30 2013 10:30AM Coronary artery disease Mar 30 2013 10:30AM Superficial injury of foot and toe(s); blister without mention of infection Mar 30 2013 10:30AM Cough Apr 17 2013 10:09AM Bronchitis, Acute Apr 17 2013 10:09AM Pharyngitis, Acute Apr 27 2013 10:05AM Bronchitis, Chronic Apr 27 2013 10:05AM Diabetes Mellitus, Type II May 29 2013 8:52AM Hypertension May 29 2013 8:52AM Coronary artery disease May 29 2013 8:52AM Prostate Cancer May 29 2013 8:52AM Respiratory System And Chest Symptoms May 29 2013 8:47AM Bronchitis, Chronic May 29 2013 8:47AM Tobacco use disorder May 29 2013 8:47AM Bronchitis, Acute Aug 17 2013 10:06AM Pharyngitis, Acute Aug 17 2013 10:06AM Dehydration Aug 17 2013 10:06AM Bronchitis, Acute Sep 07 2013 10:12AM COPD (chronic obstructive pulmonary disease) Sep 07 2013 10:12AM Anxiety Sep 07 2013 10:12AM Seasonal Allergies Sep 29 2013 11:26AM Respiratory System And Chest Symptoms Sep 29 2013 11:26AM Tobacco abuse Sep 29 2013 11:26AM Seasonal Allergies Oct 30 2013 10:28AM Allergic Rhinitis Oct 30 2013 10:28AM Tobacco abuse Oct 30 2013 10:28AM Allergic conjunctivitis Oct 30 2013 10:28AM Diabetes Mellitus, Type II Dec 08 2013 9:05AM Cough Dec 28 2013 10:00AM Chronic Obstructive Pulmonary Disease Dec 28 2013 10:00AM Bronchitis, chronic Dec 28 2013 10:00AM Increased sputum production Dec 28 2013 10:00AM Chronic Obstructive Pulmonary Disease With Acute Exacerbation Feb 17 2014 10: 15AM Constipation Feb 17 2014 10:15AM COPD (chronic obstructive pulmonary disease) with acute bronchitis Apr 06 2014 10:14AM Chronic pain Apr 06 2014 10:14AM Osteoarthritis Apr 06 2014 10:14AM Post-nasal drainage May 03 2014 10:30AM Upper Respiratory Infection May 03 2014 10:30AM Respiratory System And Chest Symptoms May 03 2014 10:30AM COPD (chronic obstructive pulmonary disease) with acute bronchitis May 03 2014 10:30AM Cough May 31 2014 10:39AM Pharyngitis, Acute May 31 2014 10:39AM COPD (chronic obstructive pulmonary disease) with acute bronchitis May 31 2014 10:39AM Cough Jun 11 2014 11:33AM Post-nasal drainage Jun 11 2014 11:33AM Respiratory System And Chest Symptoms Jun 11 2014 11:33AM COPD (chronic obstructive pulmonary disease) Jun 11 2014 11:33AM Diabetes Mellitus, Type II Jun 11 2014 11:33AM Hypertension Jun 11 2014 11:33AM arteriosclerotic heart disease Jun 11 2014 11:33AM Coronary artery disease Jun 11 2014 11:33AM History of atrial fibrillation Jun 11 2014 11:33AM COPD (chronic obstructive pulmonary disease) with acute bronchitis Jun 16 2014 10:59AM Atypical pneumonia Jun 16 2014 10:59AM Anxiety Jun 16 2014 10:59AM Tobacco abuse disorder Jun 16 2014 10:59AM Ear pain, left Aug 09 2014 10:54AM Diabetes Mellitus, Type II Nov 26 2014 10:43AM Foot lesion Nov 26 2014 10:43AM Moderate Acute Cough Mar 10 2015 10:06AM Acute bronchitis, unspecified organism Mar 10 2015 10:06AM Acute pharyngitis, unspecified etiology Mar 10 2015 10:06AM Moderate Acute Respiratory System And Chest Symptoms Mar 10 2015 10:06AM Moderate Acute Cough Jul 08 2015 10:58AM Moderate Acute Nasal congestion Jul 08 2015 10:58AM COPD (chronic obstructive pulmonary disease) with acute bronchitis Jul 08 2015 10:58AM Eustachian tube dysfunction, bilateral Jul 15 2015 11:35AM Mild Acute Post-nasal drainage Jul 15 2015 11:35AM Mild Acute Nasal congestion Jul 15 2015 11:35AM Ear pain, right Jul 15 2015 11:35AM Acute Bilateral Cerumen Impaction Jul 15 2015 11:35AM Cerumen Impaction Jul 25 2015 8:13AM Moderate Acute Cough Oct 13 2015 10:07AM Moderate Respiratory System And Chest Symptoms Oct 13 2015 10:07AM COPD (chronic obstructive pulmonary disease) with acute bronchitis Oct 13 2015 10:07AM Smoker Oct 13 2015 10:07AM Other chronic pain Dec 09 2015 10:26AM Osteoarthrosis, generalized, multiple sites Dec 09 2015 10:26AM Insomnia Dec 09 2015 10:26AM Tobacco Abuse Dec 09 2015 10:26AM Pickwickian syndrome Dec 09 2015 10:26AM Anxiety Dec 09 2015 10:26AM Osteoarthritis Dec 09 2015 10:26AM arteriosclerotic heart disease Dec 09 2015 10:26AM Hypotension Dec 09 2015 10:26AM COPD (chronic obstructive pulmonary disease) Dec 09 2015 10:26AM Learning difficulty involving reading Dec 09 2015 10:26AM Other chronic pain Jan 06 2016 11:44AM Insomnia Jan 06 2016 11:44AM Anxiety Jan 06 2016 11:44AM Osteoarthritis Jan 06 2016 11:44AM Dyspepsia Jan 09 2016 1:55PM Colon Cancer Screening Jan 09 2016 1:55PM Rectal bleeding Jan 09 2016 1:55PM Benign colon polyp Jan 30 2016 1:25PM Chronic hypertrophic gastritis Jan 30 2016 1:25PM Reflux esophagitis Jan 30 2016 1:25PM Cough Apr 02 2016 6:50AM Chest congestion Apr 02 2016 6:50AM Moderate Acute COPD exacerbation Apr 02 2016 6:50AM Mild Chronic Recurrent Pediculosis corporis May 04 2016 11:22AM Severe Acute Cough Improving Jun 18 2016 1:13PM Acute bronchitis, unspecified organism Jun 18 2016 1:13PM Moderate Acute Chest congestion Improving Jun 18 2016 1:13PM Medication management Jun 18 2016 1:13PM Severe Acute Cough Jun 13 2016 1:05PM Acute bronchitis, unspecified organism Jun 13 2016 1:05PM Acute pharyngitis, unspecified etiology Jun 13 2016 1:05PM Moderate Acute Sinus pressure Jun 13 2016 1:05PM Onychomycosis Sep 27 2016 5:13PM Cough Sep 28 2016 9:57AM Chest congestion Sep 28 2016 9:57AM Upper respiratory tract infection, unspecified type Sep 28 2016 9:57AM Sinus pressure Sep 28 2016 9:57AM COPD (chronic obstructive pulmonary disease) with acute bronchitis Oct 01 2016 10:07AM Migraine without aura and without status migrainosus, not intractable Oct 01 2016 10:07AM COPD (chronic obstructive pulmonary disease) with acute bronchitis Oct 03 2016 2:20PM Weakness generalized Oct 03 2016 2:20PM Stress at home Oct 03 2016 2:20PM Learning difficulty involving reading Oct 03 2016 2:20PM Other chronic pain Oct 16 2016 1:03PM Osteoarthrosis, generalized, multiple sites Oct 16 2016 1:03PM Stress at home Oct 16 2016 1:03PM Hypoxemia Nov 09 2016 6:35AM Dependence on supplemental oxygen Nov 09 2016 6:35AM Pulmonary emphysema, unspecified emphysema type Nov 09 2016 6:35AM History of atrial fibrillation Nov 09 2016 6:35AM Learning difficulty involving reading Nov 09 2016 6:35AM Pickwickian syndrome Nov 09 2016 6:35AM Essential hypertension Nov 09 2016 6:35AM Coronary artery disease involving [place] coronary artery of [place] heart without angina pectoris Nov 09 2016 6:35AM Moderate Acute Recurrent Chest congestion Improving Jan 28 2017 10:24AM Sinus pressure Jan 28 2017 10:24AM Chronic obstructive pulmonary disease with acute lower respiratory infection Jan 28 2017 10:24AM Acute bronchitis, unspecified Jan 28 2017 10:24AM Productive cough Jan 28 2017 10:24AM Cough May 29 2017 1:45PM Purulent postnasal drainage May 29 2017 1:45PM Moderate Acute Chest congestion May 29 2017 1:45PM Acute seasonal allergic rhinitis, unspecified trigger May 29 2017 1:45PM Chronic obstructive pulmonary disease with acute lower respiratory infection May 29 2017 1:45PM Acute bronchitis, unspecified May 29 2017 1:45PM Acute midline low back pain without sciatica May 29 2017 1:45PM Dysfunction of both eustachian tubes Aug 26 2017 9:49AM Purulent postnasal drainage Aug 26 2017 9:49AM Upper Respiratory Infection Aug 26 2017 9:49AM Acute seasonal allergic rhinitis, unspecified trigger Aug 26 2017 9:49AM Ear pressure, bilateral Aug 26 2017 9:49AM Diabetes Mellitus, Type II Sep 10 2017 10:36AM Hypertension Sep 10 2017 10:36AM Coronary artery disease Sep 10 2017 10:36AM Prostate Cancer Sep 10 2017 10:36AM Acute seasonal allergic rhinitis, unspecified trigger Sep 10 2017 9:14AM Acute atopic conjunctivitis, bilateral Sep 10 2017 9:14AM Allergic rhinitis, unspecified Sep 10 2017 9:14AM Sinus pressure Oct 29 2017 8:11AM Seasonal allergic rhinitis, unspecified trigger Oct 29 2017 8:11AM Acute seasonal allergic rhinitis, unspecified trigger Oct 29 2017 8:11AM Diabetes Mellitus, Type II Dec 20 2017 9:26AM Hypertension Dec 20 2017 9:26AM Coronary artery disease Dec 20 2017 9:26AM Prostate Cancer Dec 20 2017 9:26AM Seborrheic keratosis Apr 14 2018 2:44PM Payers Insurance Name Company Name Plan Name Plan Number Policy Number Policy Group Number Start Date Medicare RHC Medicare RHC [id number] N/A [employer] - [place] [employer] [place] [id number] N/A Medicare Part A Medicare - Lab/Xray [id number] N/A Medicare RHC Medicare RHC [id number] N/A [employer] [place] Amer[employer] [place] [id number] N/A [place] Medical Assistance [facility] Medical Assistance Prog [id number] N/A Medicare Part B Medicare Secondary [id number] Sunday, May 02, 2010 Medicare Part A Medicare Part A [id number] N/A History of Encounters Visit Date Visit Type Provider 04/14/2018 Office visit ADRYAN CARLISLE 12/20/2017 Office visit ADRYAN CARLISLE 10/29/2017 Office visit ADRYAN CARLISLE 09/10/2017 Office visit ADRYAN CARLISLE 08/26/2017 Office visit ADRYAN CARLISLE 05/29/2017 Office visit ADRYAN CARLISLE 01/28/2017 Office visit ADRYAN CARLISLE 11/07/2016 Office visit ADRYAN CARLISLE 10/16/2016 Office visit ADRYAN CARLISLE 10/08/2016 Voided ADRYAN CARLISLE 10/03/2016 Office visit ADRYAN CARLISLE 10/01/2016 Office visit ADRYAN CARLISLE 09/28/2016 Office visit ADRYAN CARLISLE 09/27/2016 Office visit ADRYAN CARLISLE 06/18/2016 Office visit ADRYAN CARLISLE 06/13/2016 Office visit ADRYAN CARLISLE 05/04/2016 Office visit ADRYAN CARLISLE 04/01/2016 Office visit ADRYAN CARLISLE 01/30/2016 Office visit Adryan Burnham MD 01/17/2016 [facility] Adryan Burnham MD 01/09/2016 Office visit Adryan Burnham MD 01/06/2016 Office visit ADRYAN CARLISLE 12/09/2015 Office visit ADRYAN CARLISLE 10/13/2015 Office visit ADRYAN CARLISLE 07/14/2015 Office visit ADRYAN CARLISLE 06/16/2015 Office visit ADRYAN CARLISLE 03/10/2015 Office visit ADRYAN GUTIÉRREZ PA 11/26/2014 Office visit ADRYAN GUTIÉRREZ PA 08/09/2014 Office visit ADRYAN GUTIÉRREZ PA 06/16/2014 Office visit ADRYAN GUTIÉRREZ PA 06/11/2014 Office visit ADRYAN GUTIÉRREZ PA 05/31/2014 Office visit 05/31/2014 Office visit ADRYAN GUTIÉRREZ PA 05/03/2014 Office visit 05/03/2014 Office visit ADRYAN GUTIÉRREZ PA 04/06/2014 Office visit 04/06/2014 Office visit ADRYAN GUTIÉRREZ PA 02/17/2014 Voided 02/17/2014 Voided ADRYAN GUTIÉRREZ PA 12/28/2013 Office visit 12/28/2013 Office visit ADRYAN GUTIÉRREZ PA 10/30/2013 Office visit ADRYAN GUTIÉRREZ PA 09/29/2013 Office visit ADRYAN GUTIÉRREZ PA 09/07/2013 Office visit ADRYAN GUTIÉRREZ PA 08/17/2013 Office visit ADRYAN GUTIÉRREZ PA 05/29/2013 Office visit ADRYAN GUTIÉRREZ PA 04/27/2013 Office visit ADRYAN GUTIÉRREZ PA 04/17/2013 Office visit ADRYAN GUTIÉRREZ PA 03/30/2013 Office visit ADRYAN GUTIÉRREZ PA 01/26/2013 Office visit ADRYAN GUTIÉRREZ PA 12/01/2012 Office visit ADRYAN GUTIÉRREZ PA 06/23/2012 Office visit ADRYAN GUTIÉRREZ PA 05/19/2012 Office visit ADRYAN CARLISLE 02/08/2012 Office visit ADRYAN GUTIÉRREZ PA 01/08/2012 Office visit ADRYAN GUTIÉRREZ PA 12/11/2011 Office visit ADRYAN GUTIÉRREZ PA 10/16/2011 Voided ADRYAN GUTIÉRREZ PA 10/09/2011 Office visit ADRYAN GUTIÉRREZ PA 08/28/2011 Office visit ADRYAN GUTIÉRREZ PA 08/01/2011 Office visit ADRYAN GUTIÉRREZ PA 07/17/2011 Office visit ADRYAN GUTIÉRREZ PA 07/11/2011 Office visit ADRYAN GUTIÉRREZ PA 06/22/2011 Office visit ADRYAN GUTIÉRREZ PA 05/15/2011 Office visit ADRYAN GUTIÉRREZ PA 04/10/2011 Office visit ADRYAN GUTIÉRREZ PA 04/03/2011 Office visit ADRYAN GUTIÉRREZ PA 02/16/2011 Office visit ADRYAN GUTIÉRREZ PA 01/18/2011 Office visit ADRYAN CARLISLE 08/07/2010 Office visit Adryan Gutiérrez PA-C 05/15/2010 Office visit Adryan Gutiérrez PA-C 02/16/2010 Office visit Adryan Gutiérrez PA-C 10/14/2009 Office visit Adryan Gutiérrez PA-C 07/11/2009 Office visit Adryan Gutiérrez PA-C 05/20/2009 Laboratory Adryan CARLISLE-C 02/28/2009 Office visit Adryan CARLISLE-C 02/22/2009 Office visit Adryan CARLISLE-C 02/17/2009 Laboratory Geo Wallace MD 12/17/2008 Laboratory Adryan Gutiérrez PA-C
--- OUTSIDE RECORDS SUMMARY | 2018-05-04 07:24 | XMS REPORT ---
Author Author ADRYAN GUTIÉRREZ [facility] Address [address] [place], [place] [id number] Care Team Providers Care Health And Wellness Instructor Name Role Phone ADRYAN GUTIÉRREZ PCP ADRYAN GUITÉRREZ PreferredProvider Allergies and Adverse Reactions Name Reaction [...] Syringe DIRECTED 06/30/2014 0.5ml 31Guage 8mm 07/17 [employer] escitalopram oxalate 20 mg oral tablet 12/16/2014 [...] by oral route 2 times per day alprazolam 0.5 mg oral tablet 12/26/2017 TAKE ONE TABLET BY MOUTH THREE TIMES DAILY tamsulosin 0.4 mg oral capsule 01/22/2018 TAKE 2 CAPSULES (0.8 MG) BY ORAL ROUTE ONCE DAILY 1/2 HOUR FOLLOWING THE SAME MEAL EACH DAY Lexapro 10 mg oral tablet 02/06/2018 take 1 tablet (10 mg) by oral route once daily escitalopram oxalate 10 mg oral tablet 02/06/2018 TAKE 1 TABLET (10 MG) BY ORAL ROUTE ONCE DAILY Name Start Date Expiration Date SIG [...] 6 to 8 hours for 7 days Levaquin 500 mg oral tablet 12/23/2017 01/02/2018 take 1 tablet (500 mg) by oral route once daily for 10 days Zithromax Z-Heri 250 mg oral tablet 01/27/2018 02/01/2018 take 2 tablets (500 mg) by oral route once daily for 1 day then 1 tablet (250 mg) by oral route once daily for 4 days Discontinued Name Start Date Discontinued Date [...] (18 mcg) by inhalation route once daily [place] 10-325 mg oral tablet 03/10/2015 12/10/2015 take [...] HC BMI BSA BMI Percentile O2 Sat(%) 10/29/2017 8:11:00 AM 100 mmHg 60 mmHg 70 bpm 18 rpm 96.5 F 268 lbs 73 in 35.358 kg/m 2.5022 m 95 % 09/10/2017 9:14:00 AM 138 mmHg 74 mmHg 65 bpm 18 rpm 98.2 F 269 lbs 72 in 36.48 kg/m2 2.49 m2 98 % 08/26/2017 9:48:00 AM [...] rpm 97.7 F 258 lbs 72 in 34.9907 kg/m 2.4382 m 95 % 09/27/2016 5:13:00 PM 126 mmHg 84 mmHg 78 bpm 16 rpm 97.4 F 258 lbs 72 in 34.99 kg/m2 2.44 m2 96 % 06/18/2016 1:13:00 PM 114 mmHg 72 mmHg 76 bpm 18 rpm 94.2 F 258 lbs 72 in 34.9907 kg/m 2.4382 m 96 % 06/13/2016 1:04:00 PM 128 mmHg 60 mmHg 74 bpm 18 rpm 96.1 F 260 lbs 72 in 35.26 kg/m2 2.45 m2 95 % 05/04/2016 11:21:00 AM 108 mmHg 70 mmHg 86 bpm 18 rpm 97.4 F 260.375 lbs 72 in 35.3128 kg/m 2.4494 m 95 % 04/02/2016 6:49:00 AM 132 mmHg 86 mmHg 86 bpm 16 rpm 97.2 F 259 lbs 72 in 35.13 kg/m2 2.44 m2 98 % 01/09/2016 1:55:00 PM 118 mmHg 64 mmHg 66 bpm 20 rpm 96.6 F 259 lbs 72 in 35.1264 kg/m 2.443 m 96 % 01/06/2016 11:43:00 AM 125 mmHg 78 mmHg 60 bpm 16 rpm 97.8 F 257 lbs 72 in 34.86 kg/m2 2.43 m2 98 % 12/09/2015 10:26:00 AM 125 mmHg 72 mmHg 68 bpm 16 rpm 98.2 F 254 lbs 74 in 32.6113 kg/m 2.4526 m 96 % 10/13/2015 10:07:00 AM 118 mmHg 68 mmHg 64 bpm 16 rpm 97.4 F 259 lbs 72 in 35.13 kg/m2 2.44 m2 98 % 07/15/2015 11:35:00 AM 135 mmHg 70 mmHg 65 bpm 18 rpm 97.4 F 254.375 lbs 72 in 34.4991 kg/m 2.421 m 95 % 06/16/2015 10:56:00 AM [...] rpm 96.4 F 256 lbs 72 in 34.72 kg/m2 2.4288 m 96 % 06/16/2014 10:58:00 AM 120 mmHg 70 mmHg 66 bpm 18 rpm 97.3 F 255 lbs 72 in 34.5839 kg/m 2.42 m2 97 % 06/11/2014 11:32:00 AM [...] rpm 95.6 F 256 lbs 72 in 34.72 kg/m2 2.43 m2 95 % 10/30/2013 10:26:00 AM 134 mmHg 64 mmHg 68 bpm 16 rpm 96.6 F 255 lbs 72 in 34.58 kg/m2 2.42 m2 97 % 09/29/2013 11:25:00 AM 102 mmHg 68 mmHg 61 bpm 18 rpm 96.7 F 257.5 lbs 72 in 34.9229 kg/m 2.4359 m 95 % 09/07/2013 10:11:00 AM 154 mmHg 80 mmHg 74 bpm 24 rpm 96.3 F 254 lbs 72 in 34.45 kg/m2 2.42 m2 97 % 08/17/2013 10:06:00 AM 118 mmHg 62 mmHg 76 bpm 24 rpm 97.2 F 254 lbs 72 in 34.4482 kg/m 2.4193 m 97 % 05/29/2013 8:47:00 AM 140 mmHg 78 mmHg 60 bpm 24 rpm 98.5 F 253 lbs 72 in 34.31 kg/m2 2.41 m2 96 % 04/27/2013 10:04:00 AM 112 mmHg 60 mmHg 72 bpm 24 rpm 96 F 252 lbs 72 in 34.177 kg/m 2.4097 m 96 % 04/17/2013 10:09:00 AM 130 mmHg 64 mmHg 70 bpm 22 rpm 97.1 F 249 lbs 72 in 33.77 kg/m2 2.40 m2 95 % 03/30/2013 10:30:00 AM 110 mmHg 60 mmHg 72 bpm 24 rpm 96.6 F 250 lbs 72 in 33.9057 kg/m 2.4001 m 95 % 01/26/2013 9:54:00 AM 106 mmHg 60 mmHg 76 bpm 24 rpm 96.4 F 250 lbs 72 in 33.91 kg/m2 2.40 m2 98 % 12/01/2012 9:55:00 AM 120 mmHg 70 mmHg 66 bpm 18 rpm 98.8 F 252 lbs 72 in 34.177 kg/m 2.4097 m 96 % 06/23/2012 10:35:00 AM 120 mmHg 60 mmHg 76 bpm 20 rpm 95.4 F 249 lbs 72 in 33.77 kg/m2 2.40 m2 96 % 05/19/2012 9:43:00 AM 130 mmHg 60 mmHg 90 bpm 24 rpm 96.3 F 251.312 lbs 72 in 34.0838 kg/m 2.4064 m 94 % 01/08/2012 1:21:00 PM 100 mmHg 65 mmHg 78 bpm 18 rpm 95.6 F 242 lbs 72 in 32.82 kg/m2 2.36 m2 97 % 12/11/2011 10:36:00 AM 126 mmHg 62 mmHg 76 bpm 18 rpm 95.7 F 235 lbs 74 in 30.1719 kg/m 2.3591 m 98 % 10/09/2011 8:47:00 AM 140 mmHg 80 mmHg 88 bpm 225 lbs 72 in 30.52 kg/m2 2.28 m2 08/28/2011 9:30:00 AM 108 mmHg 72 mmHg 76 bpm 228 lbs 72 in 30.922 kg/m 2.2921 m 97 % 08/01/2011 8:51:00 AM 112 mmHg 64 mmHg 64 bpm 229 lbs 72 in 31.06 kg/m2 2.30 m2 97 % 07/17/2011 10:41:00 AM 85 mmHg 58 mmHg 77 bpm 20 rpm 96.8 F 229 lbs 72 in 31.0577 kg/m 2.2971 m 97 % 07/11/2011 9:33:00 AM 108 mmHg 62 mmHg 82 bpm 229 lbs 72 in 31.06 kg/m2 2.30 m2 97 % 06/22/2011 10:38:00 AM 96 mmHg 64 mmHg 80 bpm 229 lbs 72 in 31.0577 kg/m 2.2971 m 96 % 05/15/2011 10:21:00 AM 110 mmHg 68 mmHg 78 bpm 225 lbs 72 in 30.52 kg/m2 2.28 m2 98 % 04/10/2011 9:55:00 AM 118 mmHg 72 mmHg 68 bpm 224 lbs 72 in 30.3795 kg/m 2.2719 m 04/03/2011 8:35:00 AM 118 mmHg 72 mmHg 80 bpm 224 lbs 72 in 30.38 kg/m2 2.27 m2 02/16/2011 9:22:00 AM 108 mmHg 66 mmHg 71 bpm 224 lbs 72 in 30.3795 kg/m 2.2719 m 97 % 01/18/2011 9:52:00 AM 124 mmHg 68 mmHg 60 bpm 224 lbs 72 in 30.38 kg/m2 2.27 m2 96 % 08/07/2010 9:26:00 AM 110 mmHg [...] 03/25/2015 12:00 AM Decadron, Per 1 Mg [facility]# [address]-69 Reviewed 03/25/2015 12:00 AM Depo-Medrol, Per 80 Mg [facility]#9072-3873-88 Reviewed 03/25/2015 12:00 AM Rocephin 1 gram [facility]#4456-5658-06 Reviewed 06/16/2015 12:00 AM Decadron, Per 1 Mg [facility]# [address]-05 Reviewed 06/16/2015 12:00 AM Rocephin 1 gram [facility]#9326-6449-38 Reviewed 07/14/2015 12:00 AM Removal impacted cerumen [...] SC/IM Reviewed 04/03/2011 12:00 AM Decadron Inj.1mg-(St.Tr) [facility] #[id number] Reviewed 04/03/2011 12:00 AM Depo-Medrol 80 Mg Im/St Tr [facility] [id number] Reviewed 10/13/2015 12:00 AM Decadron, Per 1 Mg [facility]# [address]-56 Reviewed 10/13/2015 12:00 AM Rocephin 1 gram [facility]#9283-5968-78 Reviewed 07/11/2011 12:00 AM THER/PROPH/DIAG INJ SC/IM Reviewed 07/11/2011 12:00 AM Decadron Inj.1mg-(St.Tr) [facility] #[id number] Reviewed 07/11/2011 12:00 AM Depo-Medrol 80 Mg Im/St Tr [facility] [id number] Reviewed 07/11/2011 12:00 AM Rocephin, Per 250MG - 1 Gram Vial [facility] [id number]-Ou Tr Reviewed 04/01/2016 12:00 AM THERAPEUTIC PROPHYLACTIC/DX INJECTION SUBQ/IM Reviewed 04/01/2016 12:00 AM Decadron 8mg Injection, [facility] Medicare Reviewed 06/13/2016 12:00 AM THER/PROPH/DIAG INJ SC/IM Reviewed 06/13/2016 12:00 AM Decadron 8mg Injection, [facility] Reviewed 06/13/2016 12:00 AM Rocephin 1 gram Injection, [facility] Reviewed 10/09/2011 12:00 AM ROUTINE VENIPUNCTURE Reviewed 10/09/2011 12:00 AM COMPLETE CBC W/AUTO DIFF WBC Reviewed 10/09/2011 12:00 AM COMPREHEN METABOLIC PANEL Reviewed 10/09/2011 12:00 AM GLYCOSYLATED HEMOGLOBIN TEST Reviewed 10/09/2011 12:00 AM LIPID PANEL Reviewed 10/09/2011 12:00 AM MICROALBUMIN SEMIQUANT Reviewed 09/28/2016 12:00 AM THERAPEUTIC PROPHYLACTIC/DX INJECTION SUBQ/IM Reviewed 09/28/2016 12:00 AM Decadron 8mg Injection, [facility] Reviewed 09/28/2016 12:00 AM Rocephin 1 gram Injection, [facility] Reviewed 05/20/2009 12:00 AM ROUTINE VENIPUNCTURE Reviewed 05/20/2009 12:00 AM ASSAY OF PSA FREE Reviewed 05/20/2009 12:00 AM ASSAY OF PSA TOTAL Reviewed 01/08/2012 12:00 AM THER/PROPH/DIAG INJ SC/IM Reviewed 01/08/2012 12:00 AM Rocephin 1 gram [facility]#3067-8690-34 Reviewed 01/28/2017 12:00 AM THERAPEUTIC PROPHYLACTIC/DX INJECTION SUBQ/IM Reviewed 01/28/2017 12:00 AM Rocephin 1 gram Injection, [facility] Medicare Reviewed 02/08/2012 12:00 AM Flu Injection 3 Years And Above [facility]# [address]-61 [facility] Reviewed 02/08/2012 12:00 AM PNEUMOCOCCAL VACC 23 EVY IM Reviewed 05/29/2017 12:00 AM THERAPEUTIC PROPHYLACTIC/DX INJECTION SUBQ/IM Reviewed 05/29/2017 12:00 AM Decadron 8mg Injection, [facility] Medicare Reviewed 05/19/2012 12:00 AM THER/PROPH/DIAG INJ SC/IM Reviewed 05/19/2012 12:00 AM Decadron, Per 1 Mg [facility]# [address]-44 Reviewed 05/19/2012 12:00 AM Rocephin 1 gram [facility]#2317-4503-22 Reviewed 09/10/2017 12:00 AM COMPLETE CBC W/AUTO [...] 06/23/2012 12:00 AM Decadron, Per 1 Mg [facility]# [address]-58 Reviewed 06/23/2012 12:00 AM Depo-Medrol, Per 80 Mg [facility]#8959-0876-43 Reviewed 10/29/2017 12:00 AM THERAPEUTIC PROPHYLACTIC/DX INJECTION SUBQ/IM Reviewed 10/29/2017 12:00 AM Decadron 8mg Injection, [facility] Medicare Reviewed 10/29/2017 12:00 AM Depo-Medrol 80mg Injection, [facility] Medicare Reviewed 12/01/2012 12:00 AM THER/PROPH/DIAG INJ SC/IM Reviewed 12/01/2012 12:00 AM Decadron, Per 1 Mg [facility]# [address]-38 Reviewed 12/01/2012 12:00 AM Depo-Medrol, Per 80 Mg [facility]#2397-8784-88 Reviewed 07/11/2009 12:00 AM Toradol 15 Mg,[facility]#[id number] Reviewed 01/26/2013 12:00 AM THER/PROPH/DIAG INJ SC/IM Reviewed 01/26/2013 12:00 AM Decadron, Per 1 Mg [facility]# [address]-24 Reviewed 04/17/2013 12:00 AM THER/PROPH/DIAG INJ SC/IM Reviewed 04/17/2013 12:00 AM Decadron, Per 12 Mg [facility]# [address]-95 Reviewed 04/27/2013 12:00 AM THER/PROPH/DIAG INJ SC/IM Reviewed 04/27/2013 12:00 AM Decadron, Per 12 Mg [facility]# [address]-21 Reviewed 04/27/2013 12:00 AM Rocephin 1 gram [facility]#6053-6042-54 Reviewed 05/29/2013 12:00 AM COMPLETE CBC W/AUTO DIFF WBC Reviewed 05/29/2013 12:00 AM COMPREHEN METABOLIC PANEL Reviewed 05/29/2013 12:00 AM GLYCOSYLATED HEMOGLOBIN TEST Reviewed 05/29/2013 12:00 AM LIPID PANEL Reviewed 05/29/2013 12:00 AM ASSAY OF PSA TOTAL Reviewed 05/29/2013 12:00 AM ROUTINE VENIPUNCTURE Reviewed 05/29/2013 12:00 AM THER/PROPH/DIAG INJ SC/IM Reviewed 05/29/2013 12:00 AM Decadron, Per 12 Mg [facility]# [address]-18 Reviewed 02/16/2010 12:00 AM ROUTINE VENIPUNCTURE Reviewed 02/16/2010 12:00 AM METABOLIC PANEL TOTAL CA Reviewed 02/16/2010 12:00 AM GLYCOSYLATED HEMOGLOBIN TEST Reviewed 08/17/2013 12:00 AM THER/PROPH/DIAG INJ SC/IM Reviewed 08/17/2013 12:00 AM Decadron, Per 1 Mg [facility]# [address]-76 Reviewed 08/17/2013 12:00 AM Rocephin 1 gram [facility]#2006-1451-24 Reviewed 09/07/2013 12:00 AM THER/PROPH/DIAG INJ SC/IM Reviewed 09/07/2013 12:00 AM Decadron, Per 1 Mg [facility]# [address]-69 Reviewed 09/29/2013 12:00 AM THER/PROPH/DIAG INJ SC/IM Reviewed 09/29/2013 12:00 AM Decadron, Per 1 Mg [facility]# [address]-25 Reviewed 09/29/2013 12:00 AM Rocephin 1 gram [facility]#5532-5363-86 Reviewed 12/28/2013 12:00 AM THER/PROPH/DIAG INJ SC/IM Reviewed 12/28/2013 12:00 AM Decadron, Per 1 Mg [place]# [address]-56 Reviewed 02/17/2014 12:00 AM IMMUNIZATION ADMIN Reviewed 02/17/2014 12:00 AM THER/PROPH/DIAG INJ SC/IM Reviewed 02/17/2014 12:00 AM Decadron, Per 1 Mg [facility]# [address]-80 Reviewed 02/17/2014 12:00 AM Depo-Medrol, Per 80 Mg [facility]#7328-5095-11 Reviewed 02/17/2014 12:00 AM Rocephin 1 gram [facility]#7120-3553-09 Reviewed 04/06/2014 12:00 AM THER/PROPH/DIAG INJ SC/IM Reviewed 04/06/2014 12:00 AM Rocephin 1 gram [facility]#9994-5707-86 Reviewed 05/03/2014 12:00 AM THER/PROPH/DIAG INJ SC/IM Reviewed 05/03/2014 12:00 AM Decadron, Per 1 Mg [facility]# [address]-75 Reviewed 05/03/2014 12:00 AM Rocephin 1 gram [facility]#4357-0519-53 Reviewed 05/31/2014 12:00 AM THER/PROPH/DIAG INJ SC/IM Reviewed 05/31/2014 12:00 AM Decadron, Per 1 Mg [facility]# [address]-88 Reviewed Results Summary Date and Description Results [...] [employer] 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 Nov 09 2016 [...] 9:26AM Prostate Cancer Dec 20 2017 9:26AM Payers Insurance Name Company Name Plan Name Plan Number Policy Number Policy Group Number Start Date Medicare RHC Medicare RHC [id number] N/A [employer] - [place] State Plan [employer] - R[place] State Plan [id number] N/A Medicare Part A Medicare - Lab/Xray [id number] N/A Medicare RHC Medicare RHC [id number] N/A [employer] [place] State Plan [facility] [id number] N/A [place] Medical Assistance [facility] Medical Assistance Prog [id number] N/A Medicare Part B Medicare Secondary [id number] Sunday, May 02, 2010 Medicare Part A Medicare Part A [id number] N/A History of Encounters Visit Date Visit Type Provider 12/20/2017 Office visit ADRYAN CARLISLE 10/29/2017 Office visit ADRYAN GUTIÉRREZ PA 09/10/2017 Office visit ADRYAN CARLISLE 08/26/2017 Office visit ADRYAN CARLISLE 05/29/2017 Office visit ADRYAN CARLISLE 01/28/2017 Office visit ADRYAN CARLISLE 11/07/2016 Office visit ADRYAN CARLISLE 10/16/2016 Office visit ADRYAN CARLISLE 10/08/2016 Voided ADRYAN GUTIÉRREZ PA 10/03/2016 Office visit ADRYAN CARLISLE 10/01/2016 Office visit ADRYAN CARLISLE 09/28/2016 Office visit ADRYAN CARLISLE 09/27/2016 Office visit ADRYAN CARLISLE 06/18/2016 Office visit ADRYAN CARLISLE 06/13/2016 Office visit ADRYAN CARLISLE 05/04/2016 Office visit ADRYAN CARLISLE 04/01/2016 Office visit ADRYAN CARLISLE 01/30/2016 Office visit Adryan Burnham MD 01/17/2016 [facility] Adryan Burnham MD 01/09/2016 Office visit Adryan Burnham MD 01/06/2016 Office visit ADRYAN CARLISLE 12/09/2015 Office visit ADRYAN GUTIÉRREZ PA 10/13/2015 Office visit ADRYAN CARLISLE 07/14/2015 Office visit ADRYAN CARLISLE 06/16/2015 Office visit ADRYAN CARLISLE 03/10/2015 Office visit ADRYAN GUTIÉRREZ PA 11/26/2014 Office visit ADRYAN GUTIÉRREZ PA 08/09/2014 Office visit ADRYAN CARLISLE 06/16/2014 Office visit ADRYAN CARLISLE 06/11/2014 Office visit ADRYAN GUTIÉRREZ PA 05/31/2014 [...] ADRYAN GUTIÉRREZ PA 05/19/2012 Office visit ADRYAN GUTIÉRREZ PA 02/08/2012 Office visit ADRYAN GUTIÉRREZ PA 01/08/2012 [...] ADRYAN GUTIÉRREZ PA 01/18/2011 Office visit ADRYAN GUTIÉRREZ PA 08/07/2010 Office visit Adryan Gutiérrez PA-C 05/15/2010 Office visit Adryan Gutiérrez PA-C 02/16/2010 Office visit Adryan HOFFMANC 10/14/2009 Office visit Adryan HOFFMANC 07/11/2009 Office visit Adryan HOFFMANC 05/20/2009 Laboratory Adryan HOFFMANC 02/28/2009 Office visit Adryan HOFFMANC 02/22/2009 Office visit Adryan HOFFMANC 02/17/2009 Laboratory Geo Wallace MD 12/17/2008 Laboratory Adryan Gutiérrez PA-C
--- OUTSIDE RECORDS SUMMARY | 2018-05-04 07:27 | XMS REPORT ---
Author Author ADRYAN GUTIÉRREZ [facility] Address [address] [place], [place] [address] Care Team Providers Care Test Consultant Name Role Phone ADRYAN GUTIÉRREZ PCP ADRYAN [...] Syringe DIRECTED 06/30/2014 0.5ml 31Guage 8mm 07/17 [facility] escitalopram oxalate 20 mg oral tablet [...] (18 mcg) by inhalation route once daily [place] 10-325 mg oral tablet 03/10/2015 12/10/2015 take [...] 03/25/2015 12:00 AM Decadron, Per 1 Mg [facility]# [address]-44 Reviewed 03/25/2015 12:00 AM Depo-Medrol, Per 80 Mg [facility]#0249-6959-96 Reviewed 03/25/2015 12:00 AM Rocephin 1 gram [facility]#1072-4412-13 Reviewed 06/16/2015 12:00 AM Decadron, Per 1 Mg [facility]# [address]-85 Reviewed 06/16/2015 12:00 AM Rocephin 1 gram [facility]#7291-2156-57 Reviewed 07/14/2015 12:00 AM Removal impacted cerumen [...] SC/IM Reviewed 04/03/2011 12:00 AM Decadron Inj.1mg-(St.Tr) [facility] #[id number] Reviewed 04/03/2011 12:00 AM Depo-Medrol 80 Mg Im/St Tr [facility] [id number] Reviewed 10/13/2015 12:00 AM Decadron, Per 1 Mg [facility]# [address]-94 Reviewed 10/13/2015 12:00 AM Rocephin 1 gram [facility]#7814-1890-23 Reviewed 07/11/2011 12:00 AM THER/PROPH/DIAG INJ SC/IM Reviewed 07/11/2011 12:00 AM Decadron Inj.1mg-(St.Tr) [facility] #[id number] Reviewed 07/11/2011 12:00 AM Depo-Medrol 80 Mg Im/St Tr [facility] 0009-874943 Reviewed 07/11/2011 12:00 AM Rocephin, Per 250MG - 1 Gram Vial [facility] 6737-884458-Pz Tr Reviewed 04/01/2016 12:00 AM THERAPEUTIC PROPHYLACTIC/DX [...] Reviewed 01/08/2012 12:00 AM Rocephin 1 gram [facility]#4097-0136-80 Reviewed 01/28/2017 12:00 AM THERAPEUTIC PROPHYLACTIC/DX INJECTION SUBQ/IM Reviewed 01/28/2017 12:00 AM Rocephin 1 gram Injection, [facility] Medicare Reviewed 02/08/2012 12:00 AM Flu Injection 3 Years And Above [facility]# [address]-46 [facility] Reviewed 02/08/2012 12:00 AM PNEUMOCOCCAL VACC 23 EVY IM Reviewed 05/29/2017 12:00 AM THERAPEUTIC PROPHYLACTIC/DX INJECTION SUBQ/IM Reviewed 05/29/2017 12:00 AM Decadron 8mg Injection, [facility] Medicare Reviewed 05/19/2012 12:00 AM THER/PROPH/DIAG INJ SC/IM Reviewed 05/19/2012 12:00 AM Decadron, Per 1 Mg [facility]# [address]-91 Reviewed 05/19/2012 12:00 AM Rocephin 1 gram [facility]#9703-6340-63 Reviewed 09/10/2017 12:00 AM COMPLETE CBC W/AUTO [...] 06/23/2012 12:00 AM Decadron, Per 1 Mg [facility]# [address]-59 Reviewed 06/23/2012 12:00 AM Depo-Medrol, Per 80 Mg [facility]#7171-6937-63 Reviewed 10/29/2017 12:00 AM THERAPEUTIC PROPHYLACTIC/DX INJECTION SUBQ/IM Reviewed 10/29/2017 12:00 AM Decadron 8mg Injection, [facility] Medicare Reviewed 10/29/2017 12:00 AM Depo-Medrol 80mg Injection, [facility] Medicare Reviewed 12/01/2012 12:00 AM THER/PROPH/DIAG INJ SC/IM Reviewed 12/01/2012 12:00 AM Decadron, Per 1 Mg [facility]# [address]-78 Reviewed 12/01/2012 12:00 AM Depo-Medrol, Per 80 Mg [facility]#8309-7929-94 Reviewed 07/11/2009 12:00 AM Toradol 15 Mg,[facility]#0409-384300 Reviewed 01/26/2013 12:00 AM THER/PROPH/DIAG INJ SC/IM Reviewed 01/26/2013 12:00 AM Decadron, Per 1 Mg [facility]# [address]-24 Reviewed 04/17/2013 12:00 AM THER/PROPH/DIAG INJ SC/IM Reviewed 04/17/2013 12:00 AM Decadron, Per 12 Mg [facility]# [address]-32 Reviewed 04/27/2013 12:00 AM THER/PROPH/DIAG INJ SC/IM Reviewed 04/27/2013 12:00 AM Decadron, Per 12 Mg [facility]# [address]-70 Reviewed 04/27/2013 12:00 AM Rocephin 1 gram [facility]#8393-0887-76 Reviewed 05/29/2013 12:00 AM COMPLETE CBC W/AUTO DIFF WBC Reviewed 05/29/2013 12:00 AM COMPREHEN METABOLIC PANEL Reviewed 05/29/2013 12:00 AM GLYCOSYLATED HEMOGLOBIN TEST Reviewed 05/29/2013 12:00 AM LIPID PANEL Reviewed 05/29/2013 12:00 AM ASSAY OF PSA TOTAL Reviewed 05/29/2013 12:00 AM ROUTINE VENIPUNCTURE Reviewed 05/29/2013 12:00 AM THER/PROPH/DIAG INJ SC/IM Reviewed 05/29/2013 12:00 AM Decadron, Per 12 Mg [facility]# [address]-57 Reviewed 02/16/2010 12:00 AM ROUTINE VENIPUNCTURE Reviewed 02/16/2010 12:00 AM METABOLIC PANEL TOTAL CA Reviewed 02/16/2010 12:00 AM GLYCOSYLATED HEMOGLOBIN TEST Reviewed 08/17/2013 12:00 AM THER/PROPH/DIAG INJ SC/IM Reviewed 08/17/2013 12:00 AM Decadron, Per 1 Mg [facility]# [address]-67 Reviewed 08/17/2013 12:00 AM Rocephin 1 gram [facility]#3473-7447-21 Reviewed 09/07/2013 12:00 AM THER/PROPH/DIAG INJ SC/IM Reviewed 09/07/2013 12:00 AM Decadron, Per 1 Mg [facility]# [address]-19 Reviewed 09/29/2013 12:00 AM THER/PROPH/DIAG INJ SC/IM Reviewed 09/29/2013 12:00 AM Decadron, Per 1 Mg [facility]# [address]-97 Reviewed 09/29/2013 12:00 AM Rocephin 1 gram [facility]#7398-0075-20 Reviewed 12/28/2013 12:00 AM THER/PROPH/DIAG INJ SC/IM Reviewed 12/28/2013 12:00 AM Decadron, Per 1 Mg [place]# [address]-75 Reviewed 02/17/2014 12:00 AM IMMUNIZATION ADMIN Reviewed 02/17/2014 12:00 AM THER/PROPH/DIAG INJ SC/IM Reviewed 02/17/2014 12:00 AM Decadron, Per 1 Mg NDC# [address]-02 Reviewed 02/17/2014 12:00 AM Depo-Medrol, Per 80 Mg [facility]#1874-0419-78 Reviewed 02/17/2014 12:00 AM Rocephin 1 gram [facility]#6913-9550-20 Reviewed 04/06/2014 12:00 AM THER/PROPH/DIAG INJ SC/IM Reviewed 04/06/2014 12:00 AM Rocephin 1 gram [facility]#3582-6018-78 Reviewed 05/03/2014 12:00 AM THER/PROPH/DIAG INJ SC/IM Reviewed 05/03/2014 12:00 AM Decadron, Per 1 Mg [facility]# [address]-59 Reviewed 05/03/2014 12:00 AM Rocephin 1 gram [facility]#8819-3387-47 Reviewed 05/31/2014 12:00 AM THER/PROPH/DIAG INJ SC/IM Reviewed 05/31/2014 12:00 AM Decadron, Per 1 Mg [facility]# [address]-35 Reviewed Results Summary Date and Description Results [...] [employer] MSD PNEUMOVAX 23 [id number] Intramuscular Left Deltoid 02/08/2012 06/17/2009 999 Influenza [...] 09 2016 6:35AM Coronary artery disease involving [place] coronary artery of [place] heart without angina pectoris Nov 09 2016 [...] Number Start Date Medicare RHC Medicare RHC [id number] N/A [employer] - RHC - [place] State Plan [employer] - RHC [place] State Plan [id number] N/A Medicare Part A Medicare - Lab/Xray [id number] N/A Medicare RHC Medicare RHC [id number] N/A [employer] [place] [facility] [id number] N/A [place] Medical Assistance [facility] Medical Assistance Prog [id number] N/A Medicare Part B Medicare Secondary [id number] Sunday, May 02, 2010 Medicare Part A Medicare Part A [id number] N/A History of Encounters Visit Date Visit [...] 01/30/2016 Office visit Adryan Burnham MD 01/17/2016 [facility] Adryan Burnham MD 01/09/2016 Office visit [...]
--- OUTSIDE RECORDS SUMMARY | 2018-05-04 07:29 | XMS REPORT ---
Author Author ADRYAN GUTIÉRREZ [facility] Address [address] [place], [place] [id number] Care Team Providers Care Police Investigator Name Role Phone ADRYAN GUTIÉRREZ PCP ADRYAN [...] (5 MG) BY ORAL ROUTE ONCE DAILY escitalopram oxalate 10 mg oral tablet 03/24/2014 TAKE ONE TABLET BY MOUTH DAILY BD Insulin Syringe DIRECTED 06/30/2014 0.5ml 31Guage 8mm 07/17 [facility] escitalopram oxalate 20 mg oral tablet 12/16/2014 [...] take 2 tablet at HS for itching Lexapro 20 mg oral tablet 07/02/2016 take 1 tablet by oral route daily citalopram 40 mg oral tablet 07/05/2016 take 1 tablet (40 mg) by oral route once daily Lexapro 10 mg oral tablet 08/08/2016 take 1 tablet (10 mg) by oral route once daily Flomax 0.4 mg oral capsule,extended release 24hr 08/08/2016 take 2 capsules (0.8 mg) by oral route once daily 1/2 hour following the same meal each day Flomax 0.4 mg oral capsule,extended release 24hr 08/08/2016 take 2 capsules (0.8 mg) by oral route once daily 1/2 hour following the same meal each day Lexapro 10 mg oral tablet 08/08/2016 take 1 tablet (10 mg) by oral route once daily COMP- BENADRYL/MALOXX/NYSTAT 5ML BY MOUTH FOUR TIMES DAILY SWISH AND SPIT Percocet 10-325 mg oral tablet 08/30/2016 take 1 tablet by oral route every 6 hours as needed escitalopram oxalate 10 mg oral tablet 11/07/2016 05/01/2018 TAKE 1 TABLET (10 MG) BY ORAL ROUTE ONCE DAILY tamsulosin 0.4 mg oral capsule,extended release 24hr 11/07/2016 05/01/2018 TAKE 2 CAPSULES (0.8 MG) BY ORAL ROUTE ONCE DAILY 1/2 HOUR FOLLOWING THE SAME MEAL EACH DAY Klor-Con 10 10 mEq oral tablet extended release 12/13/2016 take 1 tablet by oral route daily for 90 days Protonix 40 mg oral tablet,delayed release (DR/EC) 01/22/2017 take 1 tablet (40 mg) by oral route once daily Humulin 70/30 U-100 Insulin 100 unit/mL (70-30) subcutaneous suspension 201701/18/2018 INJECT 70 UNITS TWICE DAILY albuterol sulfate 2.5 mg /3 mL (0.083 %) inhalation solution for nebulization 05/29/2017 used in Small Volume Nebulizer QID PRN benazepril 5 mg oral tablet 05/31/2017 12/27/2017 take 1 tablet (5 mg) by oral route once daily for 30 days simvastatin 20 mg oral tablet 06/25/2017 TAKE ONE TABLET BY MOUTH ONCE DAILY IN THE THE EVENING Xanax 0.5 mg oral tablet 06/25/2017 take 1 tablet (0.5 mg) by oral route 3 times per day nitroglycerin 0.4 mg sublingual tablet, sublingual 08/01/2017 [...] by oral route daily for 90 days Name Start Date Expiration Date SIG Comments [...] oral route once daily for 4 days pantoprazole 40 mg oral tablet,delayed release (DR/EC) 03/28/2017 09/24/2017 TAKE 1 TABLET BY MOUTH DAILY Levaquin 500 mg oral tablet 06/06/2017 06/16/2017 take 1 tablet (500 mg) by oral route once daily for 10 days Zithromax Z-Heri 250 mg oral tablet 08/29/2017 09/03/2017 take 2 tablets (500 mg ) by oral route once daily for 1 day then 1 tablet (250 mg) by oral route once daily for 4 days Patanol 0.1 % ophthalmic (eye) drops 09/12/2017 09/19/2017 instill 1 - 2 drops into affected eye(s) by ophthalmic route 2 times per day at an interval of 6 to 8 hours for 7 days Discontinued Name Start Date Discontinued Date [...] (18 mcg) by inhalation route once daily Shoup 10-325 mg oral tablet 03/10/2015 12/10/2015 take [...] rpm 98.1 F 271 lbs 72 in 36.7538 kg/m 2.4989 m 98 % 05/29/2017 1:44:00 PM 142 mmHg 80 mmHg 70 bpm 18 rpm 94 F 266 lbs 72 in 36.08 kg/m2 2.48 m2 96 % 01/28/2017 10:23:00 AM 142 mmHg 80 mmHg 68 bpm 16 rpm 97.1 F 263 lbs 72 in 35.6688 kg/m 2.4617 m 98 % 11/09/2016 6:33:00 AM 142 mmHg 84 mmHg 72 bpm 16 rpm 98.2 F 255 lbs 72 in 34.58 kg/m2 2.42 m2 95 % 10/16/2016 1:01:00 PM 118 mmHg 74 mmHg 48 bpm 16 rpm 98 F 253 lbs 72 in 34.3126 kg/m 2.4145 m 98 % 10/03/2016 2:19:00 PM [...] 03/25/2015 12:00 AM Decadron, Per 1 Mg [facility]# [address]-82 Reviewed 03/25/2015 12:00 AM Depo-Medrol, Per 80 Mg [facility]#0694-1075-73 Reviewed 03/25/2015 12:00 AM Rocephin 1 gram [facility]#8542-7931-33 Reviewed 06/16/2015 12:00 AM Decadron, Per 1 Mg [facility]# [address]-19 Reviewed 06/16/2015 12:00 AM Rocephin 1 gram [facility]#5107-0865-19 Reviewed 07/14/2015 12:00 AM Removal impacted cerumen [...] SC/IM Reviewed 04/03/2011 12:00 AM Decadron Inj.1mg-(St.Tr) [facility] #[id number] Reviewed 04/03/2011 12:00 AM Depo-Medrol 80 Mg Im/St Tr [facility] [id number] Reviewed 10/13/2015 12:00 AM Decadron, Per 1 Mg [facility]# [address]-85 Reviewed 10/13/2015 12:00 AM Rocephin 1 gram [facility]#1450-1690-97 Reviewed 07/11/2011 12:00 AM THER/PROPH/DIAG INJ SC/IM Reviewed 07/11/2011 12:00 AM Decadron Inj.1mg-(St.Tr) [facility] #[id number] Reviewed 07/11/2011 12:00 AM Depo-Medrol 80 Mg Im/St Tr [facility] [id number] Reviewed 07/11/2011 12:00 AM Rocephin, Per 250MG - 1 Gram Vial [facility] [id number]-Df Tr Reviewed 04/01/2016 12:00 AM THERAPEUTIC PROPHYLACTIC/DX [...] Reviewed 01/08/2012 12:00 AM Rocephin 1 gram [facility]#5221-5757-06 Reviewed 01/28/2017 12:00 AM THERAPEUTIC PROPHYLACTIC/DX INJECTION SUBQ/IM Reviewed 01/28/2017 12:00 AM Rocephin 1 gram Injection, [facility] Medicare Reviewed 02/08/2012 12:00 AM Flu Injection 3 Years And Above [facility]# [address]-96 [facility] Reviewed 02/08/2012 12:00 AM PNEUMOCOCCAL VACC 23 EVY IM Reviewed 05/29/2017 12:00 AM THERAPEUTIC PROPHYLACTIC/DX INJECTION SUBQ/IM Reviewed 05/29/2017 12:00 AM Decadron 8mg Injection, [facility] Medicare Reviewed 05/19/2012 12:00 AM THER/PROPH/DIAG INJ SC/IM Reviewed 05/19/2012 12:00 AM Decadron, Per 1 Mg [facility]# [address]-77 Reviewed 05/19/2012 12:00 AM Rocephin 1 gram [facility]#6302-9196-27 Reviewed 09/10/2017 12:00 AM COMPLETE CBC W/AUTO [...] 06/23/2012 12:00 AM Decadron, Per 1 Mg [facility]# [address]-64 Reviewed 06/23/2012 12:00 AM Depo-Medrol, Per 80 Mg [facility]#5764-9711-51 Reviewed 10/29/2017 12:00 AM THERAPEUTIC PROPHYLACTIC/DX INJECTION SUBQ/IM Reviewed 10/29/2017 12:00 AM Decadron 8mg Injection, [facility] Medicare Reviewed 10/29/2017 12:00 AM Depo-Medrol 80mg Injection, [facility] Medicare Reviewed 12/01/2012 12:00 AM THER/PROPH/DIAG INJ SC/IM Reviewed 12/01/2012 12:00 AM Decadron, Per 1 Mg [facility]# [address]-58 Reviewed 12/01/2012 12:00 AM Depo-Medrol, Per 80 Mg [facility]#6934-3749-12 Reviewed 07/11/2009 12:00 AM Toradol 15 Mg,[facility]#[id number] Reviewed 01/26/2013 12:00 AM THER/PROPH/DIAG INJ SC/IM Reviewed 01/26/2013 12:00 AM Decadron, Per 1 Mg [facility]# [address]-13 Reviewed 04/17/2013 12:00 AM THER/PROPH/DIAG INJ SC/IM Reviewed 04/17/2013 12:00 AM Decadron, Per 12 Mg [facility]# [address]-66 Reviewed 04/27/2013 12:00 AM THER/PROPH/DIAG INJ SC/IM Reviewed 04/27/2013 12:00 AM Decadron, Per 12 Mg [facility]# [address]-61 Reviewed 04/27/2013 12:00 AM Rocephin 1 gram [facility]#2163-6198-18 Reviewed 05/29/2013 12:00 AM COMPLETE CBC W/AUTO DIFF WBC Reviewed 05/29/2013 12:00 AM COMPREHEN METABOLIC PANEL Reviewed 05/29/2013 12:00 AM GLYCOSYLATED HEMOGLOBIN TEST Reviewed 05/29/2013 12:00 AM LIPID PANEL Reviewed 05/29/2013 12:00 AM ASSAY OF PSA TOTAL Reviewed 05/29/2013 12:00 AM ROUTINE VENIPUNCTURE Reviewed 05/29/2013 12:00 AM THER/PROPH/DIAG INJ SC/IM Reviewed 05/29/2013 12:00 AM Decadron, Per 12 Mg [facility]# [address]-97 Reviewed 02/16/2010 12:00 AM ROUTINE VENIPUNCTURE Reviewed 02/16/2010 12:00 AM METABOLIC PANEL TOTAL CA Reviewed 02/16/2010 12:00 AM GLYCOSYLATED HEMOGLOBIN TEST Reviewed 08/17/2013 12:00 AM THER/PROPH/DIAG INJ SC/IM Reviewed 08/17/2013 12:00 AM Decadron, Per 1 Mg [facility]# [address]-75 Reviewed 08/17/2013 12:00 AM Rocephin 1 gram [facility]#6689-0960-24 Reviewed 09/07/2013 12:00 AM THER/PROPH/DIAG INJ SC/IM Reviewed 09/07/2013 12:00 AM Decadron, Per 1 Mg [facility]# [address]-68 Reviewed 09/29/2013 12:00 AM THER/PROPH/DIAG INJ SC/IM Reviewed 09/29/2013 12:00 AM Decadron, Per 1 Mg [facility]# [address]-92 Reviewed 09/29/2013 12:00 AM Rocephin 1 gram [place]#1927-0957-55 Reviewed 12/28/2013 12:00 AM THER/PROPH/DIAG INJ SC/IM Reviewed 12/28/2013 12:00 AM Decadron, Per 1 Mg [place]# [address]-41 Reviewed 02/17/2014 12:00 AM IMMUNIZATION ADMIN Reviewed 02/17/2014 12:00 AM THER/PROPH/DIAG INJ SC/IM Reviewed 02/17/2014 12:00 AM Decadron, Per 1 Mg N[facility]# [address]-56 Reviewed 02/17/2014 12:00 AM Depo-Medrol, Per 80 Mg [place]#8713-0775-02 Reviewed 02/17/2014 12:00 AM Rocephin 1 gram [facility]#4233-7232-32 Reviewed 04/06/2014 12:00 AM THER/PROPH/DIAG INJ SC/IM Reviewed 04/06/2014 12:00 AM Rocephin 1 gram [facility]#6799-8656-96 Reviewed 05/03/2014 12:00 AM THER/PROPH/DIAG INJ SC/IM Reviewed 05/03/2014 12:00 AM Decadron, Per 1 Mg [facility]# [address]-49 Reviewed 05/03/2014 12:00 AM Rocephin 1 gram [place]#5524-2264-29 Reviewed 05/31/2014 12:00 AM THER/PROPH/DIAG INJ SC/IM Reviewed 05/31/2014 12:00 AM Decadron, Per 1 Mg [facility]# [address]-30 Reviewed Results Summary Date and Description Results [...] [employer] MSD PNEUMOVAX 23 [id number] Intramuscular Left Deltoid 02/08/2012 06/17/2009 999 Influenza [...] 09 2016 6:35AM Coronary artery disease involving [place] coronary artery of [place] heart without angina pectoris Nov 09 2016 [...] Group Number Start Date Medicare RHC Medicare [facility] [id number] N/A [employer] - [facility] - [place] State Plan [employer] - RHC [place] State Plan [id number] N/A Medicare Part A Medicare - Lab/Xray [id number] N/A Medicare RHC Medicare [facility] [id number] N/A [employer] [place] State Plan [facility] State Plan [id number] N/A [place] Medical Assistance [facility] Medical Assistance Prog [id number] N/A Medicare Part B Medicare Secondary [id number] Sunday, May 02, 2010 Medicare Part A Medicare Part A [id number] N/A History of Encounters Visit Date Visit [...] 01/30/2016 Office visit Adryan Burnham MD 01/17/2016 [facility] Adryan Burnham MD 01/09/2016 Office visit Adryan Burnham MD 01/06/2016 Office visit ADRYAN CARLISLE 12/09/2015 Office visit ADRYAN CARLISLE 10/13/2015 Office visit ADRYAN CARLISLE 07/14/2015 Office visit ADRYAN CARLISLE 06/16/2015 Office visit ADRYAN CARLISLE 03/10/2015 Office visit ADRYAN CARLISLE 11/26/2014 Office visit ADRYAN CARLISLE 08/09/2014 Office visit ADRYAN CARLISLE 06/16/2014 Office [...] visit Adryan Gutiérrez PA-C 05/20/2009 Laboratory Adryan Gutiérrez PA-C 02/28/2009 Office visit Adryan Gutiérrez PA-C 02/22/2009 Office visit Adryan Gutiérrez PA-C 02/17/2009 Laboratory Geo Wallace MD 12/17/2008 Laboratory Adryan Gutiérrez PA-C
--- OUTSIDE RECORDS SUMMARY | 2018-05-04 07:31 | XMS REPORT ---
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# [address]-47 Reviewed 03/25/2015 12:00 AM Depo-Medrol, Per 80 Mg [facility]#6047-5857-98 Reviewed 03/25/2015 12:00 AM Rocephin 1 gram [facility]#9483-5961-92 Reviewed 06/16/2015 12:00 AM Decadron, Per 1 Mg [facility]# [address]-67 Reviewed 06/16/2015 12:00 AM Rocephin 1 gram [facility]#9466-6787-89 Reviewed 07/14/2015 12:00 AM Removal impacted cerumen [...] SC/IM Reviewed 04/03/2011 12:00 AM Decadron Inj.1mg-(St.Tr) [facility] #[id number] Reviewed 04/03/2011 12:00 AM Depo-Medrol 80 Mg Im/St Tr [facility] [id number] Reviewed 10/13/2015 12:00 AM Decadron, Per 1 Mg [facility]# [address]-95 Reviewed 10/13/2015 12:00 AM Rocephin 1 gram [facility]#7734-9202-83 Reviewed 07/11/2011 12:00 AM THER/PROPH/DIAG INJ SC/IM Reviewed 07/11/2011 12:00 AM Decadron Inj.1mg-(St.Tr) [facility] #[id number] Reviewed 07/11/2011 12:00 AM Depo-Medrol 80 Mg Im/St Tr [facility] [id number] Reviewed 07/11/2011 12:00 AM Rocephin, Per 250MG - 1 Gram Vial [facility] [id number]-Ys Tr Reviewed 04/01/2016 12:00 AM THERAPEUTIC PROPHYLACTIC/DX [...] Reviewed 01/08/2012 12:00 AM Rocephin 1 gram [facility]#5901-4004-62 Reviewed 01/28/2017 12:00 AM THERAPEUTIC PROPHYLACTIC/DX INJECTION SUBQ/IM Reviewed 01/28/2017 12:00 AM Rocephin 1 gram Injection, [facility] Medicare Reviewed 02/08/2012 12:00 AM Flu Injection 3 Years And Above [facility]# [address]-12 [facility] Reviewed 02/08/2012 12:00 AM PNEUMOCOCCAL VACC 23 EVY IM Reviewed 05/29/2017 12:00 AM THERAPEUTIC PROPHYLACTIC/DX INJECTION SUBQ/IM Reviewed 05/29/2017 12:00 AM Decadron 8mg Injection, [facility] Medicare Reviewed 05/19/2012 12:00 AM THER/PROPH/DIAG INJ SC/IM Reviewed 05/19/2012 12:00 AM Decadron, Per 1 Mg [facility]# [address]-43 Reviewed 05/19/2012 12:00 AM Rocephin 1 gram [facility]#9153-5664-66 Reviewed 09/10/2017 12:00 AM COMPLETE CBC W/AUTO [...] 06/23/2012 12:00 AM Decadron, Per 1 Mg [facility]# [address]-98 Reviewed 06/23/2012 12:00 AM Depo-Medrol, Per 80 Mg [facility]#4972-9599-82 Reviewed 10/29/2017 12:00 AM THERAPEUTIC PROPHYLACTIC/DX INJECTION SUBQ/IM Reviewed 10/29/2017 12:00 AM Decadron 8mg Injection, [facility] Medicare Reviewed 10/29/2017 12:00 AM Depo-Medrol 80mg Injection, [facility] Medicare Reviewed 12/01/2012 12:00 AM THER/PROPH/DIAG INJ SC/IM Reviewed 12/01/2012 12:00 AM Decadron, Per 1 Mg [facility]# [address]-10 Reviewed 12/01/2012 12:00 AM Depo-Medrol, Per 80 Mg [facility]#8100-8836-84 Reviewed 07/11/2009 12:00 AM Toradol 15 Mg,[facility]#[id number] Reviewed 01/26/2013 12:00 AM THER/PROPH/DIAG INJ SC/IM Reviewed 01/26/2013 12:00 AM Decadron, Per 1 Mg [facility]# [address]-17 Reviewed 04/17/2013 12:00 AM THER/PROPH/DIAG INJ SC/IM Reviewed 04/17/2013 12:00 AM Decadron, Per 12 Mg [facility]# [address]-45 Reviewed 04/27/2013 12:00 AM THER/PROPH/DIAG INJ SC/IM Reviewed 04/27/2013 12:00 AM Decadron, Per 12 Mg [facility]# [address]-69 Reviewed 04/27/2013 12:00 AM Rocephin 1 gram [facility]#3660-9974-47 Reviewed 05/29/2013 12:00 AM COMPLETE CBC W/AUTO DIFF WBC Reviewed 05/29/2013 12:00 AM COMPREHEN METABOLIC PANEL Reviewed 05/29/2013 12:00 AM GLYCOSYLATED HEMOGLOBIN TEST Reviewed 05/29/2013 12:00 AM LIPID PANEL Reviewed 05/29/2013 12:00 AM ASSAY OF PSA TOTAL Reviewed 05/29/2013 12:00 AM ROUTINE VENIPUNCTURE Reviewed 05/29/2013 12:00 AM THER/PROPH/DIAG INJ SC/IM Reviewed 05/29/2013 12:00 AM Decadron, Per 12 Mg [facility]# [address]-15 Reviewed 02/16/2010 12:00 AM ROUTINE VENIPUNCTURE Reviewed 02/16/2010 12:00 AM METABOLIC PANEL TOTAL CA Reviewed 02/16/2010 12:00 AM GLYCOSYLATED HEMOGLOBIN TEST Reviewed 08/17/2013 12:00 AM THER/PROPH/DIAG INJ SC/IM Reviewed 08/17/2013 12:00 AM Decadron, Per 1 Mg [facility]# [address]-20 Reviewed 08/17/2013 12:00 AM Rocephin 1 gram [facility]#6801-2241-49 Reviewed 09/07/2013 12:00 AM THER/PROPH/DIAG INJ SC/IM Reviewed 09/07/2013 12:00 AM Decadron, Per 1 Mg [facility]# [address]-95 Reviewed 09/29/2013 12:00 AM THER/PROPH/DIAG INJ SC/IM Reviewed 09/29/2013 12:00 AM Decadron, Per 1 Mg [facility]# [address]-35 Reviewed 09/29/2013 12:00 AM Rocephin 1 gram [place]#9823-0794-51 Reviewed 12/28/2013 12:00 AM THER/PROPH/DIAG INJ SC/IM Reviewed 12/28/2013 12:00 AM Decadron, Per 1 Mg [place]# [address]-18 Reviewed 02/17/2014 12:00 AM IMMUNIZATION ADMIN Reviewed 02/17/2014 12:00 AM THER/PROPH/DIAG INJ SC/IM Reviewed 02/17/2014 12:00 AM Decadron, Per 1 Mg [facility]# [address]-68 Reviewed 02/17/2014 12:00 AM Depo-Medrol, Per 80 Mg ND#1836-3544-52 Reviewed 02/17/2014 12:00 AM Rocephin 1 gram [facility]#6794-4220-35 Reviewed 04/06/2014 12:00 AM THER/PROPH/DIAG INJ SC/IM Reviewed 04/06/2014 12:00 AM Rocephin 1 gram [facility]#1210-9282-33 Reviewed 05/03/2014 12:00 AM THER/PROPH/DIAG INJ SC/IM Reviewed 05/03/2014 12:00 AM Decadron, Per 1 Mg [facility]# [address]-44 Reviewed 05/03/2014 12:00 AM Rocephin 1 gram ND#7345-3383-35 Reviewed 05/31/2014 12:00 AM THER/PROPH/DIAG INJ SC/IM Reviewed 05/31/2014 12:00 AM Decadron, Per 1 Mg [facility]# [address]-27 Reviewed Results Summary Date and Description Results [...] [employer] MSD PNEUMOVAX 23 [id number] Intramuscular Left Deltoid 02/08/2012 06/17/2009 999 Influenza 12/29/2013 Not Entered NE Not Entered Not Entered Not Entered 12/29/2013 03/04/2018 141 History of Past Illness Name Date of Onset Comments Herpes Zoster Feb 28 2009 9:45AM Anxiety Arthritis unspecified Diabetes mellitus, type II Hypertension Elevated Prostate Specific Antigen (PSA) [...] 09 2016 6:35AM Coronary artery disease involving lime coronary artery of lime heart without angina pectoris Nov 09 2016 [...] rhinitis, unspecified trigger Oct 29 2017 8:11AM Payers Insurance Name Company Name Plan Name Plan Number Policy Number Policy Group Number Start Date Medicare RHC Medicare RHC [id number] N/A [employer] - [place] - [place] [facility] State Plan [id number] N/A Medicare Part A Medicare - Lab/Xray [id number] N/A Medicare RHC Medicare RHC [id number] N/A [employer] [place] [employer] [place] [id number] N/A [place] Medical Assistance [facility] Medical Assistance [facility] [id number] N/A Medicare Part B Medicare Secondary [id number] Sunday, May 02, 2010 Medicare Part A Medicare Part A [id number] N/A History of Encounters Visit Date Visit Type Provider 10/29/2017 Office visit ADRYAN CARLISLE 09/10/2017 Office visit ADRYAN GUTIÉRREZ PA 08/26/2017 Office visit ADRYAN CARLISLE 05/29/2017 Office visit ADRYAN GUTIÉRREZ PA 01/28/2017 Office visit ADRYAN CARLISLE 11/07/2016 Office visit ADRYAN GUTIÉRREZ PA 10/16/2016 Office visit ADRYAN CARLISLE 10/08/2016 Voided ADRYAN GUTIÉRREZ PA 10/03/2016 Office visit ADRYAN CARLISLE 10/01/2016 Office visit ADRYAN CARLISLE 09/28/2016 Office visit ADRYAN CARLISLE 09/27/2016 Office visit ADRYAN [place] 06/18/2016 Office visit ADRYAN [place] 06/13/2016 Office visit ADRYAN [place] 05/04/2016 Office visit ADRYAN [place] 04/01/2016 Office visit ADRYAN CAR[place] 01/30/2016 Office visit Adryan Burnham MD 01/17/2016 [facility] Adryan Burnham MD 01/09/2016 Office visit Adryan Burnham MD 01/06/2016 Office visit ADRYAN GUTIÉRREZ PA 12/09/2015 Office visit ADRYAN [place] 10/13/2015 Office visit ADRYAN GUTIÉRREZ PA 07/14/2015 Office visit ADRYAN [place] 06/16/2015 Office visit ADRYAN GUTIÉRREZ PA 03/10/2015 Office visit ADRYAN GUTIÉRREZ PA 11/26/2014 Office visit ADRYAN GUTIÉRREZ PA 08/09/2014 Office visit ADRYAN GUTIÉRREZ PA 06/16/2014 Office visit ADRYAN GUTIÉRREZ PA 06/11/2014 Office visit ADRYAN GUTIÉRREZ PA 05/31/2014 Office visit 05/31/2014 Office visit ADRYAN GUTIÉRREZ PA 05/03/2014 Office visit 05/03/2014 Office visit ADRYAN [place] 04/06/2014 Office visit 04/06/2014 Office visit ADRYAN [...] visit ADRYAN GUTIÉRREZ PA 12/11/2011 Office visit ARDYAN GUTIÉRREZ PA 10/16/2011 Voided ADRYAN GUTIÉRREZ PA [...]
--- OUTSIDE RECORDS SUMMARY | 2018-05-04 07:34 | XMS REPORT ---
Author Author ADRYAN GUTIÉRREZ [facility] Address [address] [place], [place] [id number] Care Team Providers Care Neuroscientist Name Role Phone ADRYAN GUTIÉRREZ PCP ADRYAN [...] Syringe DIRECTED 06/30/2014 0.5ml 31Guage 8mm 07/17 [facility] escitalopram oxalate 20 mg oral tablet [...] (40 mg) by oral route once daily pantoprazole 40 mg oral tablet,delayed release (DR/EC) 03/28/2017 09/24/2017 TAKE 1 TABLET BY MOUTH DAILY Humulin 70/30 U-100 Insulin 100 unit/mL (70-30) [...] by oral route daily for 90 days Patanol 0.1 % ophthalmic (eye) drops 09/12/2017 09/19/2017 instill 1 - 2 drops into affected eye(s) by ophthalmic route 2 times per day at an interval of 6 to 8 hours for 7 days Name Start Date Expiration Date SIG [...] 4 days Levaquin 500 mg oral tablet 06/06/2017 06/16/2017 [...] (18 mcg) by inhalation route once daily [place] 10-325 mg oral tablet 03/10/2015 12/10/2015 take [...] HC BMI BSA BMI Percentile O2 Sat(%) 09/10/2017 9:14:00 AM 138 mmHg 74 mmHg 65 bpm 18 rpm 98.2 F 269 lbs 72 in 36.4826 kg/m 2.4897 m 98 % 08/26/2017 9:48:00 AM 124 mmHg 80 mmHg 80 bpm 18 rpm 98.1 F 271 lbs 72 in 36.75 kg/m2 2.50 m2 98 % 05/29/2017 1:44:00 PM 142 mmHg 80 mmHg 70 bpm 18 rpm 94 F 266 lbs 72 in 36.0757 kg/m 2.4757 m 96 % 01/28/2017 10:23:00 AM 142 mmHg 80 mmHg 68 bpm 16 rpm 97.1 F 263 lbs 72 in 35.67 kg/m2 2.46 m2 98 % 11/09/2016 6:33:00 AM 142 mmHg 84 mmHg 72 bpm 16 rpm 98.2 F 255 lbs 72 in 34.5839 kg/m 2.424 m 95 % 10/16/2016 1:01:00 PM 118 mmHg 74 mmHg 48 bpm 16 rpm 98 F 253 lbs 72 in 34.31 kg/m2 2.41 m2 98 % 10/03/2016 2:19:00 PM 112 mmHg [...] 97 % Social History Name Description Comments smoking quit 2 years ago denies alcohol use 8th grade Active but no formal exercise Uses seatbelts History of Procedures Date Ordered Description Order Status 03/25/2015 12:00 AM Decadron, Per 1 Mg [facility]# [address]-51 Reviewed 03/25/2015 12:00 AM Depo-Medrol, Per 80 Mg [facility]#8168-6138-77 Reviewed 03/25/2015 12:00 AM Rocephin 1 gram [facility]#5149-1574-00 Reviewed 06/16/2015 12:00 AM Decadron, Per 1 Mg [facility]# [address]-66 Reviewed 06/16/2015 12:00 AM Rocephin 1 gram [facility]#2689-2086-17 Reviewed 07/14/2015 12:00 AM Removal impacted cerumen [...] SC/IM Reviewed 04/03/2011 12:00 AM Decadron Inj.1mg-(St.Tr) [facility] #[id number] Reviewed 04/03/2011 12:00 AM Depo-Medrol 80 Mg Im/St Tr [facility] [id number] Reviewed 10/13/2015 12:00 AM Decadron, Per 1 Mg [facility]# [address]-95 Reviewed 10/13/2015 12:00 AM Rocephin 1 gram [facility]#8285-2744-45 Reviewed 07/11/2011 12:00 AM THER/PROPH/DIAG INJ SC/IM Reviewed 07/11/2011 12:00 AM Decadron Inj.1mg-(St.Tr) [facility] #[id number] Reviewed 07/11/2011 12:00 AM Depo-Medrol 80 Mg Im/St Tr [facility] [id number] Reviewed 07/11/2011 12:00 AM Rocephin, Per 250MG - 1 Gram Vial [facility] [id number]-Vs Paul Reviewed 04/01/2016 12:00 AM THERAPEUTIC PROPHYLACTIC/DX INJECTION SUBQ/IM Reviewed 04/01/2016 12:00 AM Decadron 8mg Injection, [facility] Medicare Reviewed 06/13/2016 12:00 AM THER/PROPH/DIAG INJ SC/IM Reviewed 06/13/2016 12:00 AM Decadron 8mg Injection, [facility] Medicare Reviewed 06/13/2016 12:00 AM Rocephin 1 gram Injection, [facility] Medicare Reviewed 10/09/2011 12:00 AM ROUTINE VENIPUNCTURE [...] Reviewed 01/08/2012 12:00 AM Rocephin 1 gram [facility]#8356-6821-22 Reviewed 01/28/2017 12:00 AM THERAPEUTIC PROPHYLACTIC/DX INJECTION SUBQ/IM Reviewed 01/28/2017 12:00 AM Rocephin 1 gram Injection, [facility] Medicare Reviewed 02/08/2012 12:00 AM Flu Injection 3 Years And Above [facility]# [address]-57 [facility] Reviewed 02/08/2012 12:00 AM PNEUMOCOCCAL VACC 23 EVY IM Reviewed 05/29/2017 12:00 AM THERAPEUTIC PROPHYLACTIC/DX INJECTION SUBQ/IM Reviewed 05/29/2017 12:00 AM Decadron 8mg Injection, [facility] Medicare Reviewed 05/19/2012 12:00 AM THER/PROPH/DIAG INJ SC/IM Reviewed 05/19/2012 12:00 AM Decadron, Per 1 Mg [facility]# [address]-34 Reviewed 05/19/2012 12:00 AM Rocephin 1 gram [facility]#9245-1448-09 Reviewed 09/10/2017 12:00 AM COMPLETE CBC W/AUTO [...] 06/23/2012 12:00 AM Decadron, Per 1 Mg [facility]# [address]-56 Reviewed 06/23/2012 12:00 AM Depo-Medrol, Per 80 Mg [facility]#6965-5024-96 Reviewed 12/01/2012 12:00 AM THER/PROPH/DIAG INJ SC/IM Reviewed 12/01/2012 12:00 AM Decadron, Per 1 Mg [facility]# [address]-92 Reviewed 12/01/2012 12:00 AM Depo-Medrol, Per 80 Mg [facility]#0321-8426-18 Reviewed 07/11/2009 12:00 AM Toradol 15 Mg,[facility]#0409-285955 Reviewed 01/26/2013 12:00 AM THER/PROPH/DIAG INJ SC/IM Reviewed 01/26/2013 12:00 AM Decadron, Per 1 Mg [facility]# [address]-19 Reviewed 04/17/2013 12:00 AM THER/PROPH/DIAG INJ SC/IM Reviewed 04/17/2013 12:00 AM Decadron, Per 12 Mg [facility]# [address]-94 Reviewed 04/27/2013 12:00 AM THER/PROPH/DIAG INJ SC/IM Reviewed 04/27/2013 12:00 AM Decadron, Per 12 Mg [facility]# [address]-70 Reviewed 04/27/2013 12:00 AM Rocephin 1 gram [facility]#3453-8097-00 Reviewed 05/29/2013 12:00 AM COMPLETE CBC W/AUTO DIFF WBC Reviewed 05/29/2013 12:00 AM COMPREHEN METABOLIC PANEL Reviewed 05/29/2013 12:00 AM GLYCOSYLATED HEMOGLOBIN TEST Reviewed 05/29/2013 12:00 AM LIPID PANEL Reviewed 05/29/2013 12:00 AM ASSAY OF PSA TOTAL Reviewed 05/29/2013 12:00 AM ROUTINE VENIPUNCTURE Reviewed 05/29/2013 12:00 AM THER/PROPH/DIAG INJ SC/IM Reviewed 05/29/2013 12:00 AM Decadron, Per 12 Mg [facility]# [address]-94 Reviewed 02/16/2010 12:00 AM ROUTINE VENIPUNCTURE Reviewed 02/16/2010 12:00 AM METABOLIC PANEL TOTAL CA Reviewed 02/16/2010 12:00 AM GLYCOSYLATED HEMOGLOBIN TEST Reviewed 08/17/2013 12:00 AM THER/PROPH/DIAG INJ SC/IM Reviewed 08/17/2013 12:00 AM Decadron, Per 1 Mg [facility]# [address]-04 Reviewed 08/17/2013 12:00 AM Rocephin 1 gram [facility]#2532-2517-49 Reviewed 09/07/2013 12:00 AM THER/PROPH/DIAG INJ SC/IM Reviewed 09/07/2013 12:00 AM Decadron, Per 1 Mg [facility]# [address]-20 Reviewed 09/29/2013 12:00 AM THER/PROPH/DIAG INJ SC/IM Reviewed 09/29/2013 12:00 AM Decadron, Per 1 Mg [facility]# [address]-54 Reviewed 09/29/2013 12:00 AM Rocephin 1 gram [facility]#8536-2192-86 Reviewed 12/28/2013 12:00 AM THER/PROPH/DIAG INJ SC/IM Reviewed 12/28/2013 12:00 AM Decadron, Per 1 Mg [facility]# [address]-21 Reviewed 02/17/2014 12:00 AM IMMUNIZATION ADMIN Reviewed 02/17/2014 12:00 AM THER/PROPH/DIAG INJ SC/IM Reviewed 02/17/2014 12:00 AM Decadron, Per 1 Mg [facility]# [address]-03 Reviewed 02/17/2014 12:00 AM Depo-Medrol, Per 80 Mg [facility]#9897-2052-59 Reviewed 02/17/2014 12:00 AM Rocephin 1 gram [facility]#8169-1619-98 Reviewed 04/06/2014 12:00 AM THER/PROPH/DIAG INJ SC/IM Reviewed 04/06/2014 12:00 AM Rocephin 1 gram [facility]#7165-7180-82 Reviewed 05/03/2014 12:00 AM THER/PROPH/DIAG INJ SC/IM Reviewed 05/03/2014 12:00 AM Decadron, Per 1 Mg [place]# [address]-44 Reviewed 05/03/2014 12:00 AM Rocephin 1 gram [facility]#1293-3506-26 Reviewed 05/31/2014 12:00 AM THER/PROPH/DIAG INJ SC/IM Reviewed 05/31/2014 12:00 AM Decadron, Per 1 Mg [facility]# [address]-81 Reviewed Results Summary Date and Description Results [...] [employer] MSD PNEUMOVAX 23 [id number] Intramuscular Left Deltoid 02/08/2012 06/17/2009 999 Influenza [...] 09 2016 6:35AM Coronary artery disease involving [place] coronary artery of [place] heart without angina pectoris Nov 09 2016 [...] Allergic rhinitis, unspecified Sep 10 2017 9:14AM Payers Insurance Name Company Name Plan Name Plan Number Policy Number Policy Group Number Start Date Medicare RHC Medicare RHC [id number] N/A [facility] - [facility] - [place] State Plan [facility] State Plan [id number] N/A Medicare Part A Medicare - Lab/Xray [id number] N/A [place] [employer] [place] [employer] [place] [id number] N/A Medicare Part B Medicare Secondary [id number] Sunday, May 02, 2010 Medicare Part A Medicare Part A [id number] N/A [facility] State Plan [id number] N/A History of Encounters Visit Date Visit Type Provider 09/10/2017 Office visit ADRYAN CARLISLE 08/26/2017 Office visit ADRYAN CARLISLE 05/29/2017 Office visit ADRYAN CARLISLE 01/28/2017 Office visit ADRYAN CARLISLE 11/07/2016 Office visit ADRYAN CARLISLE 10/16/2016 Office visit ADRYAN GUTIÉRREZ PA 10/08/2016 Voided ADRYAN GUTIÉRREZ PA 10/03/2016 Office visit ADRYAN GUTIÉRREZ PA 10/01/2016 Office visit ADRYAN GUTIÉRREZ PA 09/28/2016 Office visit ADRYAN GUTIÉRREZ PA 09/27/2016 Office visit ADRYAN GUTIÉRREZ PA 06/18/2016 Office visit ADRYAN GUTIÉRREZ PA 06/13/2016 Office visit ADRYAN GUTIÉRREZ PA 05/04/2016 Office visit ADRYAN GUTIÉRREZ PA 04/01/2016 Office visit ADRYAN CARLISLE 01/30/2016 Office visit Adryan Burnham MD 01/17/2016 [facility] Adryan Burnham MD 01/09/2016 Office visit Adryan Burnham MD 01/06/2016 Office visit ADRYAN GUTIÉRREZ PA 12/09/2015 Office visit ADRYAN CARLISLE 10/13/2015 Office visit ADRYAN CARLISLE 07/14/2015 Office visit ADRYAN CARLISLE 06/16/2015 Office visit ADRYAN GUTIÉRREZ PA 03/10/2015 Office visit ADRYAN CARLISLE 11/26/2014 Office visit ADRYAN GUTIÉRREZ PA 08/09/2014 Office visit ADRYAN GUTIÉRREZ PA 06/16/2014 Office visit ADRYAN GUTIÉRREZ PA 06/11/2014 Office visit ADRYAN CARLISLE 05/31/2014 Office visit 05/31/2014 Office visit ADRYAN [...]
--- OUTSIDE RECORDS SUMMARY | 2018-05-04 07:36 | XMS REPORT ---
Author Author ADRYAN GUTIÉRREZ [facility] Address [address] [place], [place] [id number] Care Team Providers Care Gas Examiner Name Role Phone ADRYAN GUTIÉRREZ PCP ADRYAN [...] Syringe DIRECTED 06/30/2014 0.5ml 31Guage 8mm 07/17 [facility] escitalopram oxalate 20 mg oral tablet [...] (18 mcg) by inhalation route once daily [place] 10-325 mg oral tablet 03/10/2015 12/10/2015 take [...] 03/25/2015 12:00 AM Decadron, Per 1 Mg [facility]# [address]-54 Reviewed 03/25/2015 12:00 AM Depo-Medrol, Per 80 Mg [facility]#8775-4309-65 Reviewed 03/25/2015 12:00 AM Rocephin 1 gram [facility]#6085-0652-42 Reviewed 06/16/2015 12:00 AM Decadron, Per 1 Mg [facility]# [address]-35 Reviewed 06/16/2015 12:00 AM Rocephin 1 gram [facility]#8465-8270-14 Reviewed 07/14/2015 12:00 AM Removal impacted cerumen [...] SC/IM Reviewed 04/03/2011 12:00 AM Decadron Inj.1mg-(St.Tr) [facility] #[id number] Reviewed 04/03/2011 12:00 AM Depo-Medrol 80 Mg Im/St Tr [facility] [id number] Reviewed 10/13/2015 12:00 AM Decadron, Per 1 Mg [facility]# [address]-14 Reviewed 10/13/2015 12:00 AM Rocephin 1 gram [facility]#9477-2179-28 Reviewed 07/11/2011 12:00 AM THER/PROPH/DIAG INJ SC/IM Reviewed 07/11/2011 12:00 AM Decadron Inj.1mg-(St.Tr) [facility] #[id number] Reviewed 07/11/2011 12:00 AM Depo-Medrol 80 Mg Im/St Tr [facility] 0009-834395 Reviewed 07/11/2011 12:00 AM Rocephin, Per 250MG - 1 Gram Vial [facility] 2834-064363-Od Paul Reviewed 04/01/2016 12:00 AM THERAPEUTIC PROPHYLACTIC/DX INJECTION SUBQ/IM Reviewed 04/01/2016 12:00 AM Decadron 8mg Injection, [facility] Medicare Reviewed 06/13/2016 12:00 AM THER/PROPH/DIAG INJ SC/IM Reviewed 06/13/2016 12:00 AM Decadron 8mg Injection, [facility] Medicare Reviewed 06/13/2016 12:00 AM Rocephin 1 gram Injection, [facility] Medicare Reviewed 10/09/2011 12:00 AM ROUTINE [...] Reviewed 01/08/2012 12:00 AM Rocephin 1 gram [facility]#6331-0112-38 Reviewed 01/28/2017 12:00 AM THERAPEUTIC PROPHYLACTIC/DX INJECTION SUBQ/IM Reviewed 01/28/2017 12:00 AM Rocephin 1 gram Injection, [facility] Medicare Reviewed 02/08/2012 12:00 AM Flu Injection 3 Years And Above [facility]# [address]-56 [facility] Reviewed 02/08/2012 12:00 AM PNEUMOCOCCAL VACC 23 EVY IM Reviewed 05/29/2017 12:00 AM THERAPEUTIC PROPHYLACTIC/DX INJECTION SUBQ/IM Reviewed 05/29/2017 12:00 AM Decadron 8mg Injection, [facility] Medicare Reviewed 05/19/2012 12:00 AM THER/PROPH/DIAG INJ SC/IM Reviewed 05/19/2012 12:00 AM Decadron, Per 1 Mg [facility]# [address]-60 Reviewed 05/19/2012 12:00 AM Rocephin 1 gram [facility]#7250-5154-24 Reviewed 09/10/2017 12:00 AM COMPLETE CBC W/AUTO [...] 06/23/2012 12:00 AM Decadron, Per 1 Mg [facility]# [address]-25 Reviewed 06/23/2012 12:00 AM Depo-Medrol, Per 80 Mg [facility]#8074-0986-62 Reviewed 12/01/2012 12:00 AM THER/PROPH/DIAG INJ SC/IM Reviewed 12/01/2012 12:00 AM Decadron, Per 1 Mg [facility]# [address]-06 Reviewed 12/01/2012 12:00 AM Depo-Medrol, Per 80 Mg [facility]#4735-7450-68 Reviewed 07/11/2009 12:00 AM Toradol 15 Mg,[facility]#0409-758593 Reviewed 01/26/2013 12:00 AM THER/PROPH/DIAG INJ SC/IM Reviewed 01/26/2013 12:00 AM Decadron, Per 1 Mg [facility]# [address]-66 Reviewed 04/17/2013 12:00 AM THER/PROPH/DIAG INJ SC/IM Reviewed 04/17/2013 12:00 AM Decadron, Per 12 Mg [facility]# [address]-62 Reviewed 04/27/2013 12:00 AM THER/PROPH/DIAG INJ SC/IM Reviewed 04/27/2013 12:00 AM Decadron, Per 12 Mg [facility]# [address]-05 Reviewed 04/27/2013 12:00 AM Rocephin 1 gram [facility]#2350-8790-09 Reviewed 05/29/2013 12:00 AM COMPLETE CBC W/AUTO DIFF WBC Reviewed 05/29/2013 12:00 AM COMPREHEN METABOLIC PANEL Reviewed 05/29/2013 12:00 AM GLYCOSYLATED HEMOGLOBIN TEST Reviewed 05/29/2013 12:00 AM LIPID PANEL Reviewed 05/29/2013 12:00 AM ASSAY OF PSA TOTAL Reviewed 05/29/2013 12:00 AM ROUTINE VENIPUNCTURE Reviewed 05/29/2013 12:00 AM THER/PROPH/DIAG INJ SC/IM Reviewed 05/29/2013 12:00 AM Decadron, Per 12 Mg [facility]# [address]-40 Reviewed 02/16/2010 12:00 AM ROUTINE VENIPUNCTURE Reviewed 02/16/2010 12:00 AM METABOLIC PANEL TOTAL CA Reviewed 02/16/2010 12:00 AM GLYCOSYLATED HEMOGLOBIN TEST Reviewed 08/17/2013 12:00 AM THER/PROPH/DIAG INJ SC/IM Reviewed 08/17/2013 12:00 AM Decadron, Per 1 Mg [facility]# [address]-30 Reviewed 08/17/2013 12:00 AM Rocephin 1 gram [facility]#1827-7835-51 Reviewed 09/07/2013 12:00 AM THER/PROPH/DIAG INJ SC/IM Reviewed 09/07/2013 12:00 AM Decadron, Per 1 Mg [facility]# [address]-56 Reviewed 09/29/2013 12:00 AM THER/PROPH/DIAG INJ SC/IM Reviewed 09/29/2013 12:00 AM Decadron, Per 1 Mg [facility]# [address]-75 Reviewed 09/29/2013 12:00 AM Rocephin 1 gram [facility]#4913-1776-59 Reviewed 12/28/2013 12:00 AM THER/PROPH/DIAG INJ SC/IM Reviewed 12/28/2013 12:00 AM Decadron, Per 1 Mg [facility]# [address]-55 Reviewed 02/17/2014 12:00 AM IMMUNIZATION ADMIN Reviewed 02/17/2014 12:00 AM THER/PROPH/DIAG INJ SC/IM Reviewed 02/17/2014 12:00 AM Decadron, Per 1 Mg [facility]# [address]-46 Reviewed 02/17/2014 12:00 AM Depo-Medrol, Per 80 Mg [facility]#3913-8525-43 Reviewed 02/17/2014 12:00 AM Rocephin 1 gram [facility]#1366-3975-80 Reviewed 04/06/2014 12:00 AM THER/PROPH/DIAG INJ SC/IM Reviewed 04/06/2014 12:00 AM Rocephin 1 gram [facility]#5525-6888-61 Reviewed 05/03/2014 12:00 AM THER/PROPH/DIAG INJ SC/IM Reviewed 05/03/2014 12:00 AM Decadron, Per 1 Mg [place]# [address]-23 Reviewed 05/03/2014 12:00 AM Rocephin 1 gram [facility]#8926-4232-10 Reviewed 05/31/2014 12:00 AM THER/PROPH/DIAG INJ SC/IM Reviewed 05/31/2014 12:00 AM Decadron, Per 1 Mg [facility]# [address]-24 Reviewed Results Summary Date and Description Results [...] [employer] MSD PNEUMOVAX 23 [id number] Intramuscular Left Deltoid 02/08/2012 06/17/2009 999 Influenza [...] 09 2016 6:35AM Coronary artery disease involving [place] coronary artery of [place] heart without angina pectoris Nov 09 2016 [...] Number Start Date Medicare RHC Medicare RHC [id number] N/A [facility] - [facility] - [place] State Plan [facility] - [facility] State Plan [id number] N/A Medicare Part A Medicare - Lab/Xray [id number] N/A [place] [employer] [place] Pro[place] [id number] N/A Medicare Part B Medicare Secondary [id number] Sunday, May 02, 2010 Medicare Part A Medicare Part A [id number] N/A [facility] State [facility] [id number] N/A History of Encounters Visit Date Visit [...] 01/30/2016 Office visit Adryan Burnham MD 01/17/2016 [facility] Adryan Burnham MD 01/09/2016 Office visit Adryan [...]
--- OUTSIDE RECORDS SUMMARY | 2018-05-04 07:38 | XMS REPORT ---
Author Author ADRYAN GUTIÉRREZ [facility] Address [address] [place], [place] [id number] Care Team Providers Care Triage Clinician Name Role Phone ADRYAN GUTIÉRREZ PCP ADRYAN GUTIÉRREZ PreferredProvider Allergies and Adverse Reactions Name Reaction Notes NO KNOWN DRUG ALLERGIES Plan of Treatment Planned Activity Comments Planned Date Planned Time Plan/Goal CBC with Differential 09/10/2017 12:00 AM CMP 09/10/2017 12:00 AM Hgb A1c 09/10/2017 12:00 AM Lipid Blood Profile 09/10/2017 12:00 AM Prostatic Specific Antigen 09/10/2017 12:00 AM Prostatic Specific Antigen 09/10/2017 12:00 AM Hgb A1c 12/08/2013 12:00 AM Medications Active [...] Syringe DIRECTED 06/30/2014 0.5ml 31Guage 8mm 07/17 [facility] escitalopram oxalate 20 mg oral tablet 12/16/2014 [...] (18 mcg) by inhalation route once daily Ione 10-325 mg oral tablet 03/10/2015 12/10/2015 take [...] 03/25/2015 12:00 AM Decadron, Per 1 Mg [facility]# [address]-92 Reviewed 03/25/2015 12:00 AM Depo-Medrol, Per 80 Mg [facility]#9770-2976-95 Reviewed 03/25/2015 12:00 AM Rocephin 1 gram [facility]#3607-3969-22 Reviewed 06/16/2015 12:00 AM Decadron, Per 1 Mg [facility]# [address]-48 Reviewed 06/16/2015 12:00 AM Rocephin 1 gram [facility]#4892-1921-14 Reviewed 07/14/2015 12:00 AM Removal impacted cerumen [...] SC/IM Reviewed 04/03/2011 12:00 AM Decadron Inj.1mg-(St.Tr) [facility] #[id number] Reviewed 04/03/2011 12:00 AM Depo-Medrol 80 Mg Im/St Tr [facility] 0009-204127 Reviewed 10/13/2015 12:00 AM Decadron, Per 1 Mg [facility]# [address]-44 Reviewed 10/13/2015 12:00 AM Rocephin 1 gram [facility]#1100[address]5889-43 Reviewed 07/11/2011 12:00 AM THER/PROPH/DIAG INJ SC/IM Reviewed 07/11/2011 12:00 AM Decadron Inj.1mg-([facility]) [facility] #[id number] Reviewed 07/11/2011 12:00 AM Depo-Medrol 80 Mg Im/St Tr [facility] 0009-955921 Reviewed 07/11/2011 12:00 AM Rocephin, Per 250MG - 1 Gram Vial [facility] 9937-342432-Qq Paul Reviewed 04/01/2016 12:00 AM THERAPEUTIC PROPHYLACTIC/DX [...] Reviewed 01/08/2012 12:00 AM Rocephin 1 gram [facility]#5344-4214-84 Reviewed 01/28/2017 12:00 AM THERAPEUTIC PROPHYLACTIC/DX INJECTION SUBQ/IM Reviewed 01/28/2017 12:00 AM Rocephin 1 gram Injection, [facility] Medicare Reviewed 02/08/2012 12:00 AM Flu Injection 3 Years And Above [facility]# [address]-05 [facility] Reviewed 02/08/2012 12:00 AM PNEUMOCOCCAL VACC 23 EVY IM Reviewed 05/29/2017 12:00 AM THERAPEUTIC PROPHYLACTIC/DX INJECTION SUBQ/IM Reviewed 05/29/2017 12:00 AM Decadron 8mg Injection, [facility] Medicare Reviewed 05/19/2012 12:00 AM THER/PROPH/DIAG INJ SC/IM Reviewed 05/19/2012 12:00 AM Decadron, Per 1 Mg [facility]# [address]-88 Reviewed 05/19/2012 12:00 AM Rocephin 1 gram [facility]#0603-1179-33 Reviewed 09/10/2017 12:00 AM ROUTINE VENIPUNCTURE Reviewed 06/23/2012 12:00 AM THER/PROPH/DIAG INJ SC/IM Reviewed 06/23/2012 12:00 AM Decadron, Per 1 Mg [facility]# [address]-48 Reviewed 06/23/2012 12:00 AM Depo-Medrol, Per 80 Mg [facility]#1347-2670-24 Reviewed 12/01/2012 12:00 AM THER/PROPH/DIAG INJ SC/IM Reviewed 12/01/2012 12:00 AM Decadron, Per 1 Mg [facility]# [address]-45 Reviewed 12/01/2012 12:00 AM Depo-Medrol, Per 80 Mg [facility]#4053-1309-55 Reviewed 07/11/2009 12:00 AM Toradol 15 Mg,[facility]#0409-466968 Reviewed 01/26/2013 12:00 AM THER/PROPH/DIAG INJ SC/IM Reviewed 01/26/2013 12:00 AM Decadron, Per 1 Mg [facility]# [address]-35 Reviewed 04/17/2013 12:00 AM THER/PROPH/DIAG INJ SC/IM Reviewed 04/17/2013 12:00 AM Decadron, Per 12 Mg [facility]# [address]-39 Reviewed 04/27/2013 12:00 AM THER/PROPH/DIAG INJ SC/IM Reviewed 04/27/2013 12:00 AM Decadron, Per 12 Mg [facility]# [address]-43 Reviewed 04/27/2013 12:00 AM Rocephin 1 gram [facility]#8454-2506-66 Reviewed 05/29/2013 12:00 AM COMPLETE CBC W/AUTO DIFF WBC Reviewed 05/29/2013 12:00 AM COMPREHEN METABOLIC PANEL Reviewed 05/29/2013 12:00 AM GLYCOSYLATED HEMOGLOBIN TEST Reviewed 05/29/2013 12:00 AM LIPID PANEL Reviewed 05/29/2013 12:00 AM ASSAY OF PSA TOTAL Reviewed 05/29/2013 12:00 AM ROUTINE VENIPUNCTURE Reviewed 05/29/2013 12:00 AM THER/PROPH/DIAG INJ SC/IM Reviewed 05/29/2013 12:00 AM Decadron, Per 12 Mg [facility]# [address]-93 Reviewed 02/16/2010 12:00 AM ROUTINE VENIPUNCTURE Reviewed 02/16/2010 12:00 AM METABOLIC PANEL TOTAL CA Reviewed 02/16/2010 12:00 AM GLYCOSYLATED HEMOGLOBIN TEST Reviewed 08/17/2013 12:00 AM THER/PROPH/DIAG INJ SC/IM Reviewed 08/17/2013 12:00 AM Decadron, Per 1 Mg [facility]# [address]-10 Reviewed 08/17/2013 12:00 AM Rocephin 1 gram [facility]#3463-7282-30 Reviewed 09/07/2013 12:00 AM THER/PROPH/DIAG INJ SC/IM Reviewed 09/07/2013 12:00 AM Decadron, Per 1 Mg [facility]# [address]-23 Reviewed 09/29/2013 12:00 AM THER/PROPH/DIAG INJ SC/IM Reviewed 09/29/2013 12:00 AM Decadron, Per 1 Mg [facility]# [address]-87 Reviewed 09/29/2013 12:00 AM Rocephin 1 gram [facility]#6432-0573-47 Reviewed 12/28/2013 12:00 AM THER/PROPH/DIAG INJ SC/IM Reviewed 12/28/2013 12:00 AM Decadron, Per 1 Mg [facility]# [address]-19 Reviewed 02/17/2014 12:00 AM IMMUNIZATION ADMIN Reviewed 02/17/2014 12:00 AM THER/PROPH/DIAG INJ SC/IM Reviewed 02/17/2014 12:00 AM Decadron, Per 1 Mg [facility]# [address]-39 Reviewed 02/17/2014 12:00 AM Depo-Medrol, Per 80 Mg [facility]#5491-6728-01 Reviewed 02/17/2014 12:00 AM Rocephin 1 gram [facility]#0419-2473-52 Reviewed 04/06/2014 12:00 AM THER/PROPH/DIAG INJ SC/IM Reviewed 04/06/2014 12:00 AM Rocephin 1 gram [facility]#9798-7349-23 Reviewed 05/03/2014 12:00 AM THER/PROPH/DIAG INJ SC/IM Reviewed 05/03/2014 12:00 AM Decadron, Per 1 Mg [facility]# [address]-63 Reviewed 05/03/2014 12:00 AM Rocephin 1 gram [facility]#9964-5964-82 Reviewed 05/31/2014 12:00 AM THER/PROPH/DIAG INJ SC/IM Reviewed 05/31/2014 12:00 AM Decadron, Per 1 Mg [facility]# [address]-17 Reviewed Results Summary Date and Description Results [...] [employer] MSD PNEUMOVAX 23 [id number] Intramuscular Left Deltoid 02/08/2012 06/17/2009 999 Influenza [...] 09 2016 6:35AM Coronary artery disease involving [place] coronary artery of [place] heart without angina pectoris Nov 09 2016 [...] 10:36AM Prostate Cancer Sep 10 2017 10:36AM Payers Insurance Name Company Name Plan Name Plan Number Policy Number Policy Group Number Start Date Medicare RHC Medicare RHC [id number] N/A [employer] - RHC [place] State Plan [employer] - [place] State Plan [id number] N/A Medicare Part A Medicare - Lab/Xray [id number] N/A [place] [employer] [place] [employer] [place] Pro[place] [id number] N/A Medicare Part B Medicare Secondary [id number] Sunday, May 02, 2010 Medicare Part A Medicare Part A [id number] N/A [employer] [place] Plan [facility] [id number] N/A History of Encounters Visit Date Visit [...] visit ADRYAN CARLISLE 05/04/2016 Office visit ADRYAN GUTIÉRREZ PA 04/01/2016 Office visit ADRYAN GUTIÉRREZ PA 01/30/2016 Office visit Adryan Burnham MD 01/17/2016 [facility] Adryan Burnham MD 01/09/2016 Office visit Adryan Burnham MD 01/06/2016 Office visit ADRYAN GUTIÉRREZ PA 12/09/2015 Office visit ADRYAN GUTIÉRREZ PA 10/13/2015 Office visit ADRYAN GUTIÉRREZ PA 07/14/2015 Office visit ADRYAN GUTIÉRREZ PA 06/16/2015 Office visit ADRYAN GUTIÉRREZ PA 03/10/2015 Office visit ADRYAN GUTIÉRREZ PA 11/26/2014 Office visit ADRYAN GUTIÉRREZ PA 08/09/2014 Office visit ADRYAN GUTIÉRREZ PA 06/16/2014 Office visit ADRYAN GUTIÉRREZ PA 06/11/2014 Office visit ADRYAN GUTIÉRREZ PA 05/31/2014 Office visit 05/31/2014 Office visit ADRYAN GUTIÉRREZ PA 05/03/2014 Office visit 05/03/2014 Office visit ADRYAN GUTIÉRREZ PA 04/06/2014 Office visit 04/06/2014 Office visit ADRYAN CARLISLE 02/17/2014 Voided 02/17/2014 Voided ADRYAN GUTIÉRREZ PA [...]
--- OUTSIDE RECORDS SUMMARY | 2018-05-04 07:40 | XMS REPORT ---
Author ADRYAN [facility] Address [address] [place], [place] [address] Care Team Providers Care Claims Processor Name Role Phone ADRYAN GUTIÉRREZ PCP Unavailable Allergies and Adverse Reactions Name Reaction Notes NO KNOWN DRUG ALLERGIES Plan of Treatment Planned Activity Comments Planned Date Planned Time Plan/Goal GLYCOSYLATED HEMOGLOBIN TEST 12/08/2013 12:00 AM Medications Active Name Start Date Estimated Completion Date SIG Comments Humulin 70/30 100 unit/mL (70-30) subcutaneous suspension 03/09/2013 50 UNITS TWICE DAILY simvastatin 20 mg oral tablet 03/09/2013 take 1 tablet (20 mg) by oral route once daily in the evening Lexapro 10 mg oral tablet 03/09/2013 take 1 tablet (10 mg) by oral route once daily nitroglycerin 0.4 mg sublingual tablet, sublingual 05/27/2013 place 1 tablet (0.4 mg) by sublingual route PRN Patanol 0.1 % ophthalmic drops 11/01/2013 instill 1 drop into affected eye( s) by ophthalmic route 2 times per day at an interval of 6 to 8 hours Flonase 50 mcg/actuation nasal spray,suspension 12/15/2013 inhale 1 spray by nasal route 2 times a day benazepril 5 mg oral tablet 01/14/2014 TAKE 1 TABLET (5 MG) BY ORAL ROUTE ONCE DAILY escitalopram oxalate 10 mg oral tablet 03/24/2014 TAKE ONE TABLET BY MOUTH DAILY albuterol sulfate 2.5 mg /3 mL (0.083 %) inhalation solution for nebulization 04/11/2014 used in Small Volume Nebulizer QID PRN Protonix 40 mg oral tablet,delayed release (DR/EC) take 1 tablet (40 mg ) by oral route once daily Levaquin 500 mg oral tablet 06/11/2014 take 1 tablet (500 mg) by oral route once daily Spiriva with HandiHaler 18 mcg inhalation capsule, w/inhalation device 2014 inhale 1 capsule (18 mcg) by inhalation route once daily escitalopram oxalate 10 mg oral tablet 06/23/2014 TAKE ONE TABLET BY MOUTH DAILY BD Insulin Syringe DIRECTED 06/30/2014 0.5ml 31Guage 8mm 07/17 [facility] Flomax 0.4 mg oral capsule,extended release 24hr 07/15/2014 take 2 capsules (0.8 mg) by oral route once daily 1/2 hour following the same meal each day Klor-Con 10 10 mEq oral tablet extended release 07/15/2014 07/10/2015 take 1 tablet by oral route daily for 30 days simvastatin 20 mg oral tablet 09/24/2014 TAKE ONE TABLET BY MOUTH ONCE DAILY IN THE THE EVENING simvastatin 20 mg oral tablet 09/24/2014 TAKE ONE TABLET BY MOUTH ONCE DAILY IN THE THE EVENING escitalopram oxalate 20 mg oral tablet 12/16/2014 TAKE 1 TABLET BY MOUTH DAILY benazepril 5 mg oral tablet 01/14/2015 TAKE 1 TABLET (5 MG) BY ORAL ROUTE ONCE DAILY Xanax 0.5 mg oral tablet 02/03/2015 08/02/2015 take 1 tablet by oral route 3 times a day for 30 days [place] 10-325 mg oral tablet 03/10/2015 take 1 tablet by oral route every 6 hours as needed for pain ProAir HFA 90 mcg/actuation inhalation HFA aerosol inhaler 03/10/2015 inhale 1 puff (90 mcg) by inhalation route every 6 hours as needed escitalopram oxalate 20 mg oral tablet 04/18/2015 TAKE 1 TABLET BY MOUTH DAILY Humulin 70/30 100 unit/mL (70-30) subcutaneous suspension 04/26/2015 INJECT 70 UNITS TWICE DAILY - E11.65 Flonase 50 mcg/actuation nasal spray,suspension 06/16/2015 inhale 1 spray by nasal route 2 times a day Percocet 5-325 mg oral tablet 06/27/2015 take 1 tablet by oral route every 6 hours as needed promethazine-codeine 6.25-10 mg/5 mL oral syrup 06/27/2015 take 5 milliliters by oral route every 6 hours as needed, not to exceed 30 mL in 24 hours Name Start Date Expiration Date SIG Comments [...] by oral route 2 times per day benazepril 5 mg oral tablet 08/26/2012 02/22/2013 take 1 tablet (5 mg) by oral route once daily for 30 days Bactrim DS 800-160 mg oral tablet 12/01/2012 [...] oral route once daily for 10 days Symbicort 160-4.5 mcg/actuation inhalation HFA aerosol inhaler 04/27/20132013 inhale 2 puffs by inhalation route 2 times per day in the morning and evening for 10 days Levaquin 500 mg oral [...] oral route every 6 hours as needed Zithromax Z-Heri 250 mg oral tablet 03/10/2015 [...] 1 tabletby oral route every 4 hours Problem List Description Status Onset Anxiety Active Arthritis unspecified Active Diabetes Mellitus, Type II Active Hypertension Active Osteoarthritis Active Chronic Obstructive Pulmonary Disease Active arteriosclerotic heart disease Active Coronary artery disease Active Prostate Cancer Active Bronchitis, chronic Active 12/30/2013 Constipation Active 02/18/2014 Chronic pain Active 04/11/2014 History of atrial fibrillation Active 06/14/2014 Vital Signs Date Time BP-Sys(mm[Hg] BP-Darline(mm[Hg]) HR(bpm) RR(rpm) Temp WT HT HC BMI BSA BMI Percentile O2 Sat(%) 06/16/2015 10:56:00 AM 135 mmHg 78 mmHg [...] rpm 95.9 F 251 lbs 72 in 34.0414 kg/m 2.4049 m 94 % 05/31/2014 10:38:00 AM 95 mmHg 60 mmHg 80 bpm 22 rpm 97.5 F 256 lbs 71 in 35.70 kg/m2 2.41 m2 94 % 05/03/2014 10:30:00 AM 125 mmHg 70 mmHg 71 bpm 18 rpm 96.5 F 258 lbs 72 in 34.9907 kg/m 2.4382 m 95 % 04/06/2014 10:13:00 AM 102 mmHg 68 mmHg 71 bpm 18 rpm 96.6 F 261.375 lbs 72 in 35.45 kg/m2 2.45 m2 97 % 02/17/2014 10:14:00 AM 138 mmHg 70 mmHg 66 bpm 22 rpm 94.6 F 256 lbs 72 in 34.7195 kg/m 2.4288 m 95 % 12/28/2013 10:00:00 AM 126 mmHg 72 mmHg 74 bpm 22 rpm 95.6 F 256 lbs 72 in 34.72 kg/m2 2.43 m2 95 % 10/30/2013 10:26:00 AM 134 mmHg 64 mmHg 68 bpm 16 rpm 96.6 F 255 lbs 72 in 34.5839 kg/m 2.424 m 97 % 09/29/2013 11:25:00 AM 102 mmHg 68 mmHg 61 bpm 18 rpm 96.7 F 257.5 lbs 72 in 34.92 kg/m2 2.44 m2 95 % 09/07/2013 10:11:00 AM 154 mmHg 80 mmHg 74 bpm 24 rpm 96.3 F 254 lbs 72 in 34.4482 kg/m 2.4193 m 97 % 08/17/2013 10:06:00 AM 118 mmHg 62 mmHg 76 bpm 24 rpm 97.2 F 254 lbs 72 in 34.45 kg/m2 2.42 m2 97 % 05/29/2013 8:47:00 AM 140 mmHg 78 mmHg 60 bpm 24 rpm 98.5 F 253 lbs 72 in 34.3126 kg/m 2.4145 m 96 % 04/27/2013 10:04:00 AM 112 mmHg 60 mmHg 72 bpm 24 rpm 96 F 252 lbs 72 in 34.18 kg/m2 2.41 m2 96 % 04/17/2013 10:09:00 AM 130 mmHg 64 mmHg 70 bpm 22 rpm 97.1 F 249 lbs 72 in 33.7701 kg/m 2.3953 m 95 % 03/30/2013 10:30:00 AM 110 mmHg 60 mmHg 72 bpm 24 rpm 96.6 F 250 lbs 72 in 33.91 kg/m2 2.40 m2 95 % 01/26/2013 9:54:00 AM 106 mmHg 60 mmHg 76 bpm 24 rpm 96.4 F 250 lbs 72 in 33.9057 kg/m 2.4001 m 98 % 12/01/2012 9:55:00 AM 120 mmHg 70 mmHg 66 bpm 18 rpm 98.8 F 252 lbs 72 in 34.18 kg/m2 2.41 m2 96 % 06/23/2012 10:35:00 AM 120 mmHg 60 mmHg 76 bpm 20 rpm 95.4 F 249 lbs 72 in 33.7701 kg/m 2.3953 m 96 % 05/19/2012 9:43:00 AM 130 mmHg 60 mmHg 90 bpm 24 rpm 96.3 F 251.312 lbs 72 in 34.08 kg/m2 2.41 m2 94 % 01/08/2012 1:21:00 PM 100 mmHg 65 mmHg 78 bpm 18 rpm 95.6 F 242 lbs 72 in 32.8208 kg/m 2.3614 m 97 % 12/11/2011 10:36:00 AM 126 mmHg 62 mmHg 76 bpm 18 rpm 95.7 F 235 lbs 74 in 30.17 kg/m2 2.36 m2 98 % 10/09/2011 8:47:00 AM 140 mmHg 80 mmHg 88 bpm 225 lbs 72 in 30.5152 kg/m 2.277 m 08/28/2011 9:30:00 AM 108 mmHg [...] 97 % Social History Name Description Comments Tobacco Current every day smoker denies alcohol use 8th grade Active but no formal exercise Uses seatbelts History of Procedures Date Ordered Description Order Status 03/25/2015 12:00 AM Decadron, Per 1 Mg [facility]# [address]-05 Reviewed 03/25/2015 12:00 AM Depo-Medrol, Per 80 Mg [facility]#3035-7178-43 Reviewed 03/25/2015 12:00 AM Rocephin 1 gram [facility]#9740-6394-25 Reviewed 04/03/2011 12:00 AM ROUTINE VENIPUNCTURE Reviewed 04/03/2011 12:00 AM COMPLETE CBC AUTOMATED Returned 04/03/2011 12:00 AM COMPREHEN METABOLIC PANEL Returned 04/03/2011 12:00 AM GLYCOSYLATED HEMOGLOBIN TEST Returned 04/03/2011 12:00 AM LIPID PANEL Returned 04/03/2011 12:00 AM Prostate Cancer Screening PSA Returned 04/03/2011 12:00 AM MICROALBUMIN SEMIQUANT Returned 04/03/2011 12:00 AM THER/PROPH/DIAG INJ SC/IM Reviewed 04/03/2011 12:00 AM Decadron Inj.1mg-([facility]) [facility] #[id number] Reviewed 04/03/2011 12:00 AM Depo-Medrol 80 Mg Im/ Tr [facility] 0009-731420 Reviewed 07/11/2011 12:00 AM THER/PROPH/DIAG INJ SC/IM Reviewed 07/11/2011 12:00 AM Decadron Inj.1mg-([facility]) [facility] #[id number] Reviewed 07/11/2011 12:00 AM Depo-Medrol 80 Mg Im/ Tr [facility] 0009-340314 Reviewed 07/11/2011 12:00 AM Rocephin, Per 250MG - 1 Gram Vial [facility] 7379-600051-[place]d [place] Reviewed 10/09/2011 12:00 AM ROUTINE VENIPUNCTURE Reviewed 10/09/2011 12:00 AM COMPLETE CBC W/AUTO DIFF WBC Reviewed 10/09/2011 12:00 AM COMPREHEN METABOLIC PANEL Reviewed 10/09/2011 12:00 AM GLYCOSYLATED HEMOGLOBIN TEST Reviewed 10/09/2011 12:00 AM LIPID PANEL Reviewed 10/09/2011 12:00 AM MICROALBUMIN SEMIQUANT Reviewed 05/20/2009 12:00 AM ROUTINE VENIPUNCTURE Reviewed 05/20/2009 12:00 AM ASSAY OF PSA FREE Reviewed 05/20/2009 12:00 AM ASSAY OF PSA TOTAL Reviewed 01/08/2012 12:00 AM THER/PROPH/DIAG INJ SC/IM Reviewed 01/08/2012 12:00 AM Rocephin 1 gram [facility]#4569-7370-58 Reviewed 02/08/2012 12:00 AM Flu Injection 3 Years And Above [facility]# [address]-80 C Reviewed 02/08/2012 12:00 AM PNEUMOCOCCAL VACC 23 EVY IM Reviewed 05/19/2012 12:00 AM THER/PROPH/DIAG INJ SC/IM Reviewed 05/19/2012 12:00 AM Decadron, Per 1 Mg [facility]# [address]-06 Reviewed 05/19/2012 12:00 AM Rocephin 1 gram [facility]#1116-2663-71 Reviewed 06/23/2012 12:00 AM THER/PROPH/DIAG INJ SC/IM Reviewed 06/23/2012 12:00 AM Decadron, Per 1 Mg [facility]# [address]-50 Reviewed 06/23/2012 12:00 AM Depo-Medrol, Per 80 Mg [facility]#2120-4743-00 Reviewed 12/01/2012 12:00 AM THER/PROPH/DIAG INJ SC/IM Reviewed 12/01/2012 12:00 AM Decadron, Per 1 Mg [facility]# [address]-17 Reviewed 12/01/2012 12:00 AM Depo-Medrol, Per 80 Mg [facility]#7902-6732-95 Reviewed 07/11/2009 12:00 AM Toradol 15 Mg,[facility]#0409-329688 Reviewed 01/26/2013 12:00 AM THER/PROPH/DIAG INJ SC/IM Reviewed 01/26/2013 12:00 AM Decadron, Per 1 Mg [facility]# [address]-71 Reviewed 04/17/2013 12:00 AM THER/PROPH/DIAG INJ SC/IM Reviewed 04/17/2013 12:00 AM Decadron, Per 12 Mg [facility]# [address]-21 Reviewed 04/27/2013 12:00 AM THER/PROPH/DIAG INJ SC/IM Reviewed 04/27/2013 12:00 AM Decadron, Per 12 Mg [facility]# [address]-04 Reviewed 04/27/2013 12:00 AM Rocephin 1 gram [facility]#2553-0499-19 Reviewed 05/29/2013 12:00 AM COMPLETE CBC W/AUTO DIFF WBC Reviewed 05/29/2013 12:00 AM COMPREHEN METABOLIC PANEL Reviewed 05/29/2013 12:00 AM GLYCOSYLATED HEMOGLOBIN TEST Reviewed 05/29/2013 12:00 AM LIPID PANEL Reviewed 05/29/2013 12:00 AM ASSAY OF PSA TOTAL Reviewed 05/29/2013 12:00 AM ROUTINE VENIPUNCTURE Reviewed 05/29/2013 12:00 AM THER/PROPH/DIAG INJ SC/IM Reviewed 05/29/2013 12:00 AM Decadron, Per 12 Mg [facility]# [address]-28 Reviewed 02/16/2010 12:00 AM ROUTINE VENIPUNCTURE Reviewed 02/16/2010 12:00 AM METABOLIC PANEL TOTAL CA Reviewed 02/16/2010 12:00 AM GLYCOSYLATED HEMOGLOBIN TEST Reviewed 08/17/2013 12:00 AM THER/PROPH/DIAG INJ SC/IM Reviewed 08/17/2013 12:00 AM Decadron, Per 1 Mg [facility]# [address]-88 Reviewed 08/17/2013 12:00 AM Rocephin 1 gram [facility]#8780-6074-89 Reviewed 09/07/2013 12:00 AM THER/PROPH/DIAG INJ SC/IM Reviewed 09/07/2013 12:00 AM Decadron, Per 1 Mg [facility]# [address]-50 Reviewed 09/29/2013 12:00 AM THER/PROPH/DIAG INJ SC/IM Reviewed 09/29/2013 12:00 AM Decadron, Per 1 Mg [facility]# [address]-00 Reviewed 09/29/2013 12:00 AM Rocephin 1 gram [facility]#8838-1436-90 Reviewed 12/28/2013 12:00 AM THER/PROPH/DIAG INJ SC/IM Reviewed 12/28/2013 12:00 AM Decadron, Per 1 Mg [place]# [address]-34 Reviewed 02/17/2014 12:00 AM IMMUNIZATION ADMIN Reviewed 02/17/2014 12:00 AM THER/PROPH/DIAG INJ SC/IM Reviewed 02/17/2014 12:00 AM Decadron, Per 1 Mg [place]# [address]-61 Reviewed 02/17/2014 12:00 AM Depo-Medrol, Per 80 Mg [facility]#5756-9768-57 Reviewed 02/17/2014 12:00 AM Rocephin 1 gram [facility]#2894-4881-33 Reviewed 04/06/2014 12:00 AM THER/PROPH/DIAG INJ SC/IM Reviewed 04/06/2014 12:00 AM Rocephin 1 gram [facility]#2049-5242-11 Reviewed 05/03/2014 12:00 AM THER/PROPH/DIAG INJ SC/IM Reviewed 05/03/2014 12:00 AM Decadron, Per 1 Mg [facility]# [address]-45 Reviewed 05/03/2014 12:00 AM Rocephin 1 gram [facility]#6916-7589-13 Reviewed 05/31/2014 12:00 AM THER/PROPH/DIAG INJ SC/IM Reviewed 05/31/2014 12:00 AM Decpraveen, Per 1 Mg [facility]# [address]-16 Reviewed Results Summary Data and Description Results 02/16/2010 4:41 PM GLUCOSE 196.0 mg/dLSODIUM 137.0 mmol/LPOTASSIUM 4.90 mmol/ LCHLORIDE 102.0 mmol/LCO2 23.0 mmol/LBUN 21.0 mg/dLCREATININE 1.0 mg/dLCALCIUM 9.70 mg/dLeGFR >60 mL/min/1.73 m2 04/03/2011 3:59 PM WBC 5.7 RBC 5.39 HGB 16.50 g/dLHCT 48.40 %MCV 90.0 fLMCH 30.60 pgMCHC 34.10 g/dLRDW CV 13.0 %MPV 11.40 fLPLT 235 GLUCOSE 207.0 mg/ dLSODIUM 137.0 mmol/LPOTASSIUM 5.10 mmol/LCHLORIDE 101.0 mmol/LCO2 27.0 mmol/ LBUN 19.0 mg/dLCREATININE 1.0 mg/dLSGOT/AST 19.0 IU/LSGPT/ALT 26.0 IU/LALK PHOS 118.0 IU/LTOTAL PROTEIN 6.80 g/dLALBUMIN 4.60 g/dLTOTAL BILI 0.80 mg/dLCALCIUM 9.60 mg/dLeGFR >60 mL/min/1.73 [id number] 132.0 mg/dLCHOLESTEROL 109.0 mg/ dLHDL 32.0 mg/dLLDL (CALC) 51.0 mg/dLCREAT UR 101.60 mg/dLMICROALBUMIN UR 32.0 ug/mLALB:CREAT RATIO 31 PSA TOTAL 9.170 ng/mL 10/09/2011 3:45 PM GLUCOSE 211.0 mg/dLSODIUM 138.0 mmol/LPOTASSIUM 4.30 mmol/ LCHLORIDE 106.0 mmol/LCO2 22.0 mmol/LBUN 17.0 mg/dLCREATININE 0.90 mg/dLSGOT/ AST 10.0 IU/LSGPT/ALT 9.0 IU/LALK PHOS 105.0 IU/LTOTAL PROTEIN 6.50 g/dLALBUMIN 4.30 g/dLTOTAL BILI 0.70 mg/dLCALCIUM 9.50 mg/dLeGFR 60 TRIGLYCERIDES 137.0 mg/ dLCHOLESTEROL 108.0 mg/dLHDL 25.0 mg/dLLDL (CALC) 56.0 mg/dLWBC 7.2 RBC 5.06 HGB 15.30 g/dLHCT 45.0 %MCV 89.0 fLMCH 30.20 pgMCHC 34.0 g/dLRDW CV 13.20 %MPV 11.0 fLPLT 260 05/29/2013 3:39 PM HGB A1C 6.90 %Est Avg Glucose 151.3 mg/dLWBC 4.6 RBC 5.16 HGB 15.70 g/dLHCT 46.90 %MCV 91.0 fLMCH 30.40 pgMCHC 33.50 g/dLRDW CV 14.0 %MPV 10.80 fLPLT 208 %NEUT 63.0 %%LYMP 23.80 %%MONO 10.0 %%EOS 2.80 %%BASO 0.40 %# NEUT 2.91 #LYMP 1.10 #MONO 0.46 #EOS 0.13 #BASO 0.02 GLUCOSE 99.0 mg/dLSODIUM 139.0 mmol/LPOTASSIUM 4.50 mmol/LCHLORIDE 105.0 mmol/LCO2 25.0 mmol/LBUN 20.0 mg /dLCREATININE 1.0 mg/dLSGOT/AST 20.0 IU/LSGPT/ALT 19.0 IU/LALK PHOS 106.0 IU/ LTOTAL PROTEIN 6.10 g/dLALBUMIN 3.90 g/dLTOTAL BILI 0.70 mg/dLCALCIUM 8.60 mg/ dLeGFR 60 PSA TOTAL 0.620 ng/mLTRIGLYCERIDES 87.0 mg/dLCHOLESTEROL 107.0 mg/ dLHDL 36.0 mg/dLLDL (CALC) 54.0 mg/dL History Of Immunizations Name Date Admin Mfg Name Mfg Code Trade Name Lot# Route Inj Vis Given Vis Pub CVX X 02/08/2012 [employer] MSD Pneumovax 23 [id number] Intramuscular Left Deltoid 02/08/2012 06/17/2009 999 Influenza 12/29/2013 Not Entered NE Not Entered Not Entered Not Entered 12/29/2013 03/04/2015 141 History of Past Illness Name Date [...] Coronary Artery Disease May 15 2010 11:12AM Osteoarthrosis Aug 07 2010 9:25AM Diabetes Mellitus, Type II Aug 07 2010 9:25AM Hyperlipidemia, unspecified Aug 07 2010 9:25AM Coronary Artery Disease Aug 07 2010 9:25AM Chronic pain Aug 07 2010 9:25AM Gout Jan 18 2011 9:49AM Pain in [...] with acute bronchitis Jul 08 2015 10:58AM Payers Insurance Name Company Name Plan Name Plan Number Policy Number Policy Group Number Start Date Medicare Part A Medicare C [id number] N/A [employer] - [place] [employer] [place] [id number] N/A Medicare Part A Medicare - Lab/Xray [id number] N/A [place] [employer] [place] [employer] [place] [id number] N/A Medicare Part B Medicare Secondary [id number] Sunday, May 02, 2010 Medicare Part A Medicare Part A [id number] N/A History of Encounters Visit Date Visit Type Provider 06/16/2015 Office visit ADRYAN CARLISLE 03/10/2015 Office [...] visit Adryan CARLISLE-C 02/22/2009 Office visit Adryan Gutiérrez PA-C 02/17/2009 Laboratory Geo Wallace MD 12/17/2008 Laboratory Adryan Gutiérrez PA-C
--- OUTSIDE RECORDS SUMMARY | 2018-05-04 07:42 | XMS REPORT ---
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 [employer] Name Role Phone ADRYAN GUTIÉRREZ PCP Unavailable [...] oral route once daily in the evening nitroglycerin 0.4 mg sublingual tablet, sublingual 05/27/2013 place 1 tablet (0.4 mg) by sublingual route PRN Flonase 50 mcg/actuation nasal spray,suspension 12/15/2013 inhale [...] used in Small Volume Nebulizer QID PRN Spiriva with HandiHaler 18 mcg inhalation capsule, w/inhalation device 2014 inhale 1 capsule (18 mcg) by inhalation route once daily escitalopram oxalate 10 mg oral tablet 06/23/2014 TAKE ONE TABLET BY MOUTH DAILY BD Insulin Syringe DIRECTED 06/30/2014 0.5ml 31Guage 8mm 07/17 [facility] simvastatin 20 mg oral tablet 09/24/2014 TAKE [...] 04/18/2015 TAKE 1 TABLET BY MOUTH DAILY Flonase 50 mcg/actuation nasal spray,suspension 06/16/2015 inhale 1 spray by nasal route 2 times a day simvastatin 20 mg oral tablet 10/13/2015 TAKE ONE TABLET BY MOUTH ONCE DAILY IN THE THE EVENING Flomax 0.4 mg oral capsule,extended release 24hr 10/13/2015 take 2 capsules (0.8 mg) by oral route once daily 1/2 hour following the same meal each day benazepril 5 mg oral tablet 10/13/2015 TAKE 1 TABLET (5 MG) BY ORAL ROUTE ONCE DAILY Klor-Con 10 10 mEq oral tablet extended release 10/13/2015 07/09/2016 take 1 tablet by oral route daily for 90 days ipratropium-albuterol 0.5 mg-3 mg(2.5 mg base)/3 mL inhalation solution for nebulization 10/13/2015 inhale 3 milliliters by nebulization route 4 times per day and as needed, up to 6 doses per day Humulin 70/30 100 unit/mL (70-30) subcutaneous suspension 11/09/2015 INJECT 70 UNITS TWICE DAILY - E11.65 Percocet 10-325 mg oral tablet 12/10/2015 take 1 tablet by oral route every 6 hours as needed promethazine-codeine 6.25-10 mg/5 mL oral syrup 12/10/2015 take 5 milliliters by oral route every 6 hours as needed, not to exceed 30 mL in 24 hours Protonix 40 mg oral tablet,delayed release (DR/EC) 12/23/2015 take 1 tablet (40 mg) by oral route once daily Ventolin HFA 90 mcg/actuation inhalation HFA aerosol inhaler 12/29/2015 inhale 1 puff (90 mcg) by inhalation route every 6 hours as needed diazepam 5 mg oral tablet 01/07/2016 06/05/2016 take 1 tablet (5 mg) by oral route 2 times per day for 30 days Lexapro 20 mg oral tablet 01/07/2016 take 1 tablet by oral route daily Name Start Date Expiration Date SIG Comments [...] an interval of 6 to 8 hours [place] 10-325 mg oral tablet 03/10/2015 12/10/2015 take 1 tablet by oral route every 6 hours as needed for pain Levaquin 500 mg oral tablet 10/16/2015 12/10/2015 take 1 tablet (500 mg) by oral route once daily Problem List Description Status Onset Anxiety Active [...] COPD (chronic obstructive pulmonary disease) Active 12/10/2015 Vital Signs Date Time BP-Sys(mm[Hg] BP-Darline(mm[Hg]) HR(bpm) RR(rpm) Temp WT HT HC BMI BSA BMI Percentile O2 Sat(%) 01/06/2016 11:43:00 AM 125 mmHg 78 mmHg [...] 03/25/2015 12:00 AM Decadron, Per [address] [facility]# [address]-50 Reviewed 03/25/2015 12:00 AM Depo-Medrol, Per [address] [facility]#2017-7852-55 Reviewed 03/25/2015 12:00 AM Rocephin [address] [facility]#0337-9874-74 Reviewed 06/16/2015 12:00 AM Decadron, Per [address] [facility]# [address]-36 Reviewed 06/16/2015 12:00 AM Rocephin [address] [facility]#6835-6138-86 Reviewed 07/14/2015 12:00 AM Removal impacted cerumen [...] SC/IM Reviewed 04/03/2011 12:00 AM Decadron Inj.1mg-(St.Tr) [facility] #[id number] Reviewed 04/03/2011 12:00 AM Depo-Medrol 80 Mg Im/St Tr [facility] [id number] Reviewed 10/13/2015 12:00 AM Decadron, Per [address] [facility]# [address]-91 Reviewed 10/13/2015 12:00 AM Rocephin [address] [facility]#1783-7863-12 Reviewed 07/11/2011 12:00 AM THER/PROPH/DIAG INJ SC/IM Reviewed 07/11/2011 12:00 AM Decadron Inj.1mg-([facility]) [facility] #[id number] Reviewed 07/11/2011 12:00 AM Depo-Medrol 80 Mg Im/St Tr [facility] [id number] Reviewed 07/11/2011 12:00 AM Rocephin, Per 250MG - 1 Gram Vial [facility] [id number]-Bb Paul Reviewed 10/09/2011 12:00 AM ROUTINE VENIPUNCTURE [...] Reviewed 01/08/2012 12:00 AM Rocephin [address] [facility]#2285-6143-58 Reviewed 02/08/2012 12:00 AM Flu Injection 3 Years And Above [facility]# [address]-95 RHC Reviewed 02/08/2012 12:00 AM PNEUMOCOCCAL VACC 23 EVY IM Reviewed 05/19/2012 12:00 AM THER/PROPH/DIAG INJ SC/IM Reviewed 05/19/2012 12:00 AM Decadron, Per [address] [facility]# [address]-39 Reviewed 05/19/2012 12:00 AM Rocephin [address] [facility]#8538-7668-84 Reviewed 06/23/2012 12:00 AM THER/PROPH/DIAG INJ SC/IM Reviewed 06/23/2012 12:00 AM Decadron, Per [address] [facility]# [address]-18 Reviewed 06/23/2012 12:00 AM Depo-Medrol, Per [address] [facility]#0329[address]-68 Reviewed 12/01/2012 12:00 AM THER/PROPH/DIAG INJ SC/IM Reviewed 12/01/2012 12:00 AM Decadron, Per [address] [facility]# [address]-34 Reviewed 12/01/2012 12:00 AM Depo-Medrol, Per [address] [facility]#9745-3532-08 Reviewed 07/11/2009 12:00 AM Toradol 15 Mg,[facility]#[id number] Reviewed 01/26/2013 12:00 AM THER/PROPH/DIAG INJ SC/IM Reviewed 01/26/2013 12:00 AM Decadron, Per [address] [facility]# [address]-64 Reviewed 04/17/2013 12:00 AM THER/PROPH/DIAG INJ SC/IM Reviewed 04/17/2013 12:00 AM Decadron, Per [address] [facility]# [address]-81 Reviewed 04/27/2013 12:00 AM THER/PROPH/DIAG INJ SC/IM Reviewed 04/27/2013 12:00 AM Decadron, Per [address] [facility]# [address]-82 Reviewed 04/27/2013 12:00 AM Rocephin [address] [facility]#0927-8499-27 Reviewed 05/29/2013 12:00 AM COMPLETE CBC W/AUTO DIFF WBC Reviewed 05/29/2013 12:00 AM COMPREHEN METABOLIC PANEL Reviewed 05/29/2013 12:00 AM GLYCOSYLATED HEMOGLOBIN TEST Reviewed 05/29/2013 12:00 AM LIPID PANEL Reviewed 05/29/2013 12:00 AM ASSAY OF PSA TOTAL Reviewed 05/29/2013 12:00 AM ROUTINE VENIPUNCTURE Reviewed 05/29/2013 12:00 AM THER/PROPH/DIAG INJ SC/IM Reviewed 05/29/2013 12:00 AM Decadron, Per [address] [facility]# [address]-24 Reviewed 02/16/2010 12:00 AM ROUTINE VENIPUNCTURE Reviewed 02/16/2010 12:00 AM METABOLIC PANEL TOTAL CA Reviewed 02/16/2010 12:00 AM GLYCOSYLATED HEMOGLOBIN TEST Reviewed 08/17/2013 12:00 AM THER/PROPH/DIAG INJ SC/IM Reviewed 08/17/2013 12:00 AM Decadron, Per [address] [facility]# [address]-69 Reviewed 08/17/2013 12:00 AM Rocephin 1 gram [place]#3951-1965-25 Reviewed 09/07/2013 12:00 AM THER/PROPH/DIAG INJ SC/IM Reviewed 09/07/2013 12:00 AM Decadron, Per 1 Mg [facility]# [address]-29 Reviewed 09/29/2013 12:00 AM THER/PROPH/DIAG INJ SC/IM Reviewed 09/29/2013 12:00 AM Decadron, Per 1 Mg [facility]# [address]-46 Reviewed 09/29/2013 12:00 AM Rocephin [address] [facility]#7788-7541-11 Reviewed 12/28/2013 12:00 AM THER/PROPH/DIAG INJ SC/IM Reviewed 12/28/2013 12:00 AM Decadron, Per 1 Mg [facility]# [address]-87 Reviewed 02/17/2014 12:00 AM IMMUNIZATION ADMIN Reviewed 02/17/2014 12:00 AM THER/PROPH/DIAG INJ SC/IM Reviewed 02/17/2014 12:00 AM Decadron, Per 1 Mg [place]# [address]-52 Reviewed 02/17/2014 12:00 AM Depo-Medrol, Per [address] [facility]#5067-8887-28 Reviewed 02/17/2014 12:00 AM Rocephin [address] [facility]#9860-4106-14 Reviewed 04/06/2014 12:00 AM THER/PROPH/DIAG INJ SC/IM Reviewed 04/06/2014 12:00 AM Rocephin 1 gram [facility]#2322-6053-87 Reviewed 05/03/2014 12:00 AM THER/PROPH/DIAG INJ SC/IM Reviewed 05/03/2014 12:00 AM Decadron, Per [address] [facility]# [address]-41 Reviewed 05/03/2014 12:00 AM Rocephin 1 gram [place]#4239-9640-49 Reviewed 05/31/2014 12:00 AM THER/PROPH/DIAG INJ SC/IM Reviewed 05/31/2014 12:00 AM Edgardo Singh [address] [facility]# [address]-35 Reviewed Results Summary Data and Description Results 02/16/2010 4:41 PM GLYCOHEMOGLOBIN [...] GLYCOHEMOGLOBIN A1C 10.50 % 05/29/2013 3:39 PM HGB A1C 6.90 %Est [...] 105.0 mmol/LCO2 25.0 mmol/LBUN 20.0 mg/dLCREATININE 1.0 mg/dLSGOT /AST 20.0 IU/LSGPT/ALT 19.0 IU/LALK PHOS 106.0 IU/LTOTAL PROTEIN 6.10 g/ dLALBUMIN 3.90 g/dLTOTAL BILI 0.70 mg/dLCALCIUM 8.60 mg/dLAGE 68 GFR NonAA 74 GFR AA 90 eGFR 60 eGFR AA* 60 PSA TOTAL 0.620 ng/mLTRIGLYCERIDES 87.0 mg/ dLCHOLESTEROL 107.0 mg/dLHDL 36.0 mg/dLTOT CHOL/HDL 3.0 LDL (CALC) 54.0 mg/dL History Of Immunizations Name Date Admin Mfg Name Mfg Code Trade Name Lot# Route Inj Vis Given Vis Pub CVX X 02/08/2012 Merck [employer]., Inc[employer] MSD Pneumovax 23 [id number] Intramuscular Left Deltoid 02/08/2012 06/17/2009 999 Influenza 12/29/2013 Not Entered NE Not Entered Not Entered Not Entered 12/29/2013 03/04/2016 141 History of Past Illness Name Date [...] 12/10/2015 COPD (chronic obstructive pulmonary disease) 12/10/2015 Osteoarthrosis Aug 07 2010 9:25AM Diabetes Mellitus, [...] Artery Disease Apr 03 2011 8:40AM Osteoarthrosis Feb 2011 9:57AM Diabetes Mellitus, Type II b 2011 9:57AM Tobacco Abuse Apr 10 2011 9:57AM Chronic Obstructive Pulmonary Disease b 2011 9:57AM Coronary Artery Disease b 2011 9:57AM Diabetes Mellitus, Type II May [...] 2016 11:44AM Osteoarthritis Jan 06 2016 11:44AM Payers Insurance Name Company Name Plan Name Plan Number Policy Number Policy Group Number Start Date Medicare Part A Medicare [facility] [address] [id number] N/A [employer] - [place] State [place] [employer] - [facility] [place] State Plan [id number] N/A Medicare Part A Medicare - Lab/Xray [id number] N/A [place] [facility] [employer] [place] [facility] [place] [facility] [id number] N/A Medicare Part B Medicare Secondary [id number] Sunday, May 02, 2010 Medicare Part A Medicare Part A [id number] N/A History of Encounters Visit Date Visit Type Provider 01/06/2016 Office visit ADRYAN CARLISLE 12/09/2015 Office visit ADRYAN CARLISLE 10/13/2015 Office visit ADRYAN CARLISLE 07/14/2015 Office visit ADRYAN CARLISLE 06/16/2015 Office visit ADRYAN CARLISLE 03/10/2015 Office visit ADRYAN CARLISLE 11/26/2014 Office visit ADRYAN CARLISLE 08/09/2014 Office visit ADRYAN GUTIÉRREZ PA 06/16/2014 [...] Adryan Gutiérrez PA-C 05/15/2010 Office visit Adryan CARLISLE-C 02/16/2010 Office visit Adryna CARLISLE-C 10/14/2009 Office visit Adryan CARLISLE-C 07/11/2009 Office visit Adryan CARLISLE-C 05/20/2009 Laboratory Adryan HOFFMANC 02/28/2009 Office visit Adryan HOFFMANC 02/22/2009 Office visit Adryan HOFFMANC 02/17/2009 Laboratory Geo Wallace MD 12/17/2008 Laboratory Adryan Gutiérrez PA-C
--- OUTSIDE RECORDS SUMMARY | 2018-05-04 07:44 | XMS REPORT ---
Author ADRYAN [facility] Address [address] [place], [place] [address] Care Team Providers Care Care Coordination Manager Name Role Phone ADRYAN GUTIÉRREZ PCP Unavailable ADRYAN GUTIÉRREZ PreferredProvider Unavailable Allergies and Adverse Reactions Name Reaction [...] used in Small Volume Nebulizer QID PRN escitalopram oxalate 10 mg oral tablet 06/23/2014 TAKE ONE TABLET BY MOUTH DAILY BD Insulin Syringe DIRECTED 06/30/2014 0.5ml 31Guage 8mm 07/17 [facility] simvastatin 20 mg oral tablet 09/24/2014 [...] 04/18/2015 TAKE 1 TABLET BY MOUTH DAILY simvastatin 20 mg oral tablet 10/13/2015 TAKE [...] INJECT 70 UNITS TWICE DAILY - E11.65 Protonix 40 mg oral tablet,delayed release (DR/EC) 12/23/2015 take 1 tablet (40 mg) by oral route once daily Ventolin HFA 90 mcg/actuation inhalation HFA aerosol inhaler 12/29/2015 inhale 1 puff (90 mcg) by inhalation route every 6 hours as needed promethazine-codeine 6.25-10 mg/5 mL oral syrup 04/02/2016 take 5 milliliters by oral route every 6 hours as needed, not to exceed 30 mL in 24 hours Humulin 70/30 100 unit/mL (70-30) subcutaneous suspension 04/09/2016 INJECT 70 UNITS TWICE DAILY - E11.65 hydroxyzine HCl 25 mg oral tablet 05/04/2016 take 2 tablet at HS for itching benazepril 5 mg oral tablet 05/16/2016 11/12/2016 take 1 tablet (5 mg) by oral route once daily for 30 days benazepril 5 mg oral tablet 05/16/2016 TAKE 1 TABLET (5 MG) BY ORAL ROUTE ONCE DAILY Symbicort 160-4.5 mcg/actuation inhalation HFA aerosol inhaler 06/19/201610/17 inhale 2 puffs by inhalation route 2 times per day in the morning and evening for 30 days Lexapro 20 mg oral tablet 07/02/2016 take 1 tablet by oral route daily citalopram 40 mg oral tablet 07/05/2016 take 1 tablet (40 mg) by oral route once daily simvastatin 20 mg oral tablet 07/11/2016 TAKE ONE TABLET BY MOUTH ONCE DAILY IN THE THE EVENING Protonix 40 mg oral tablet,delayed release (DR/EC) 07/11/2016 take 1 tablet (40 mg) by oral route once daily fluticasone 50 mcg/actuation nasal spray,suspension 07/19/2016 spray 1 spray (50 mcg) in each nostril by intranasal route once daily Lexapro 10 mg oral tablet 08/08/2016 take 1 tablet (10 mg) by oral route once daily Flomax 0.4 mg oral capsule,extended release 24hr 08/08/2016 take 2 capsules (0.8 mg) by oral route once daily 1/2 hour following the same meal each day Humulin 70/30 100 unit/mL (70-30) subcutaneous suspension 08/08/2016 INJECT 70 UNITS TWICE DAILY Flomax 0.4 mg oral capsule,extended release 24hr 08/08/2016 take 2 capsules (0.8 mg) by oral route once daily 1/2 hour following the same meal each day Lexapro 10 mg oral tablet 08/08/2016 take 1 tablet (10 mg) by oral route once daily COMP- BENADRYL/MALOXX/NYSTAT 5ML BY MOUTH FOUR TIMES DAILY SWISH AND SPIT Klor-Con 10 10 mEq oral tablet extended release 08/16/2016 05/13/2017 take 1 tablet by oral route daily for 90 days Percocet 10-325 mg oral tablet 08/30/2016 take 1 tablet by oral route every 6 hours as needed Xanax 0.5 mg oral tablet 08/30/2016 take 1 tablet (0.5 mg) by oral route 3 times per day Name Start Date Expiration Date SIG Comments [...] by topical route 3 times per day Levaquin 500 mg oral tablet 06/13/2016 06/23/2016 [...] (18 mcg) by inhalation route once daily [place] 10-325 mg oral tablet 03/10/2015 12/10/2015 take [...] HC BMI BSA BMI Percentile O2 Sat(%) 09/27/2016 5:13:00 PM 126 mmHg 84 mmHg [...] 03/25/2015 12:00 AM Decadron, Per 1 Mg [facility]# [address]-46 Reviewed 03/25/2015 12:00 AM Depo-Medrol, Per 80 Mg [facility]#4585-9878-07 Reviewed 03/25/2015 12:00 AM Rocephin 1 gram [facility]#5375-6013-65 Reviewed 06/16/2015 12:00 AM Decadron, Per 1 Mg [facility]# [address]-49 Reviewed 06/16/2015 12:00 AM Rocephin 1 gram [facility]#6460-0277-13 Reviewed 07/14/2015 12:00 AM Removal impacted cerumen [...] SC/IM Reviewed 04/03/2011 12:00 AM Decadron Inj.1mg-(St.Tr) [facility] #[id number] Reviewed 04/03/2011 12:00 AM Depo-Medrol 80 Mg Im/St Tr [facility] 0009-983107 Reviewed 10/13/2015 12:00 AM Decadron, Per 1 Mg [facility]# [address]-86 Reviewed 10/13/2015 12:00 AM Rocephin 1 gram [facility]#4091-4420-27 Reviewed 07/11/2011 12:00 AM THER/PROPH/DIAG INJ SC/IM Reviewed 07/11/2011 12:00 AM Decadron Inj.1mg-(St.Tr) [facility] #[id number] Reviewed 07/11/2011 12:00 AM Depo-Medrol 80 Mg Im/St Tr [facility] 0009-800095 Reviewed 07/11/2011 12:00 AM Rocephin, Per 250MG - 1 Gram Vial [facility] [id number]-Uw Tr Reviewed 04/01/2016 12:00 AM THERAPEUTIC PROPHYLACTIC/DX [...] Reviewed 01/08/2012 12:00 AM Rocephin 1 gram [facility]#5516-3217-51 Reviewed 02/08/2012 12:00 AM Flu Injection 3 Years And Above [facility]# [address]-17 [facility] Reviewed 02/08/2012 12:00 AM PNEUMOCOCCAL VACC 23 EVY IM Reviewed 05/19/2012 12:00 AM THER/PROPH/DIAG INJ SC/IM Reviewed 05/19/2012 12:00 AM Decadron, Per 1 Mg [facility]# [address]-66 Reviewed 05/19/2012 12:00 AM Rocephin 1 gram [facility]#0368-8283-08 Reviewed 06/23/2012 12:00 AM THER/PROPH/DIAG INJ SC/IM Reviewed 06/23/2012 12:00 AM Decadron, Per 1 Mg [facility]# [address]-31 Reviewed 06/23/2012 12:00 AM Depo-Medrol, Per 80 Mg [facility]#8674-2997-64 Reviewed 12/01/2012 12:00 AM THER/PROPH/DIAG INJ SC/IM Reviewed 12/01/2012 12:00 AM Decadron, Per 1 Mg [facility]# [address]-22 Reviewed 12/01/2012 12:00 AM Depo-Medrol, Per 80 Mg [facility]#3149-6891-33 Reviewed 07/11/2009 12:00 AM Toradol 15 Mg,[facility]#0409-749732 Reviewed 01/26/2013 12:00 AM THER/PROPH/DIAG INJ SC/IM Reviewed 01/26/2013 12:00 AM Decadron, Per 1 Mg [facility]# [address]-15 Reviewed 04/17/2013 12:00 AM THER/PROPH/DIAG INJ SC/IM Reviewed 04/17/2013 12:00 AM Decadron, Per 12 Mg [facility]# [address]-75 Reviewed 04/27/2013 12:00 AM THER/PROPH/DIAG INJ SC/IM Reviewed 04/27/2013 12:00 AM Decadron, Per 12 Mg [facility]# [address]-45 Reviewed 04/27/2013 12:00 AM Rocephin 1 gram [facility]#9828-6176-08 Reviewed 05/29/2013 12:00 AM COMPLETE CBC W/AUTO DIFF WBC Reviewed 05/29/2013 12:00 AM COMPREHEN METABOLIC PANEL Reviewed 05/29/2013 12:00 AM GLYCOSYLATED HEMOGLOBIN TEST Reviewed 05/29/2013 12:00 AM LIPID PANEL Reviewed 05/29/2013 12:00 AM ASSAY OF PSA TOTAL Reviewed 05/29/2013 12:00 AM ROUTINE VENIPUNCTURE Reviewed 05/29/2013 12:00 AM THER/PROPH/DIAG INJ SC/IM Reviewed 05/29/2013 12:00 AM Decadron, Per 12 Mg [facility]# [address]-44 Reviewed 02/16/2010 12:00 AM ROUTINE VENIPUNCTURE Reviewed 02/16/2010 12:00 AM METABOLIC PANEL TOTAL CA Reviewed 02/16/2010 12:00 AM GLYCOSYLATED HEMOGLOBIN TEST Reviewed 08/17/2013 12:00 AM THER/PROPH/DIAG INJ SC/IM Reviewed 08/17/2013 12:00 AM Decadron, Per 1 Mg [facility]# [address]-92 Reviewed 08/17/2013 12:00 AM Rocephin 1 gram [facility]#4061-3066-41 Reviewed 09/07/2013 12:00 AM THER/PROPH/DIAG INJ SC/IM Reviewed 09/07/2013 12:00 AM Decadron, Per 1 Mg [facility]# [address]-75 Reviewed 09/29/2013 12:00 AM THER/PROPH/DIAG INJ SC/IM Reviewed 09/29/2013 12:00 AM Decadron, Per 1 Mg [facility]# [address]-02 Reviewed 09/29/2013 12:00 AM Rocephin 1 gram [facility]#9382-1789-54 Reviewed 12/28/2013 12:00 AM THER/PROPH/DIAG INJ SC/IM Reviewed 12/28/2013 12:00 AM Decadron, Per 1 Mg [facility]# [address]-18 Reviewed 02/17/2014 12:00 AM IMMUNIZATION ADMIN Reviewed 02/17/2014 12:00 AM THER/PROPH/DIAG INJ SC/IM Reviewed 02/17/2014 12:00 AM Decadron, Per 1 Mg [facility]# [address]-09 Reviewed 02/17/2014 12:00 AM Depo-Medrol, Per 80 Mg [facility]#2905-7310-02 Reviewed 02/17/2014 12:00 AM Rocephin 1 gram [place]#5465-6898-60 Reviewed 04/06/2014 12:00 AM THER/PROPH/DIAG INJ SC/IM Reviewed 04/06/2014 12:00 AM Rocephin 1 gram [facility]#5641-5415-50 Reviewed 05/03/2014 12:00 AM THER/PROPH/DIAG INJ SC/IM Reviewed 05/03/2014 12:00 AM Decadron, Per 1 Mg [place]# [address]-72 Reviewed 05/03/2014 12:00 AM Rocephin 1 gram [facility]#9054-1728-36 Reviewed 05/31/2014 12:00 AM THER/PROPH/DIAG INJ SC/IM Reviewed 05/31/2014 12:00 AM Decadron, Per 1 Mg [facility]# [address]-63 Reviewed Results Summary Date and Description Results [...] mg/dLTOT CHOL/HDL 3.0 LDL (CALC) 54.0 mg/dL 01/17/2016 6:21 AM GLUCOSE POCT 174.0 mg/dL History Of Immunizations Name Date Admin Mfg Name Mfg Code Trade Name Lot# Route Inj Vis Given Vis Pub CVX X 02/08/2012 [employer] MSD Pneumovax 23 [id number] Intramuscular Left Deltoid 02/08/2012 06/17/2009 999 Influenza 12/29/2013 Not Entered NE Not Entered Not Entered Not Entered 12/29/2013 03/04/2017 141 History of Past Illness Name Date [...] Aug 07 2010 9:25AM Depression Onychomycosis 09/27/2016 Gout Jan 18 2011 9:49AM Pain in [...] 2016 1:05PM Onychomycosis Sep 27 2016 5:13PM Payers Insurance Name Company Name Plan Name Plan Number Policy Number Policy Group Number Start Date Medicare RHC Medicare [facility] [id number] N/A [employer] - [facility] [place] [employer] - [facility] [place] [id number] N/A Medicare Part A Medicare - Lab/Xray [id number] N/A [place] [employer] [facility] Medical Assistance Pro [id number] N/A Medicare Part B Medicare Secondary [id number] Sunday, May 02, 2010 Medicare Part A Medicare Part A [id number] N/[place] [employer] [place] [employer] [place] [id number] N/A History of Encounters Visit Date Visit Type Provider 09/27/2016 Office visit ADRYAN CARLISLE 06/18/2016 Office visit ADRYAN CARLISLE 06/13/2016 Office visit ADRYAN CARLISLE 05/04/2016 Office visit ADRYAN CARLISLE 04/01/2016 Office visit ADRYAN CARLISLE 01/30/2016 Office visit Adryan Burnham MD 01/17/2016 [facility] Adryan Burnham MD 01/09/2016 Office visit Adryan Burnham MD 01/06/2016 Office visit ADRYAN CARLISLE 12/09/2015 Office visit ADRYAN CARLISLE 10/13/2015 Office visit ADRYAN CARLISLE 07/14/2015 Office visit ADRYAN CARLISLE 06/16/2015 Office visit ADRYAN CARLISLE 03/10/2015 Office visit ADRYAN CARLISLE 11/26/2014 Office visit ADRYAN CARLISLE 08/09/2014 Office visit ADRYAN CARLISLE 06/16/2014 Office visit ADRYAN CARLISLE 06/11/2014 Office visit ADRYAN CARLISLE 05/31/2014 Office visit 05/31/2014 Office visit ADRYAN CARLISLE 05/03/2014 Office visit 05/03/2014 Office visit ADRYAN [...] ADRYAN GUTIÉRREZ PA 04/17/2013 Office visit ADRYAN CARLISLE 03/30/2013 Office visit ADRYAN GUTIÉRREZ PA 01/26/2013 [...]
--- OUTSIDE RECORDS SUMMARY | 2018-05-04 07:45 | XMS REPORT ---
Author Author ADRYAN GUTIÉRREZ [facility] Address [address] [place], [place] [id number] Care Team Providers Care Community Outreach Coordinator Name Role Phone ADRYAN GUTIÉRREZ PCP Unavailable [...] Syringe DIRECTED 06/30/2014 0.5ml 31Guage 8mm 07/17 [facility] simvastatin 20 mg oral tablet 09/24/2014 [...] take 1 tablet by oral route daily Xanax 0.5 mg oral tablet 03/08/2016 take 1 tablet (0.5 mg) by oral route 3 times per day Percocet 10-325 mg oral tablet 03/19/2016 take 1 tablet by oral route every 6 hours as needed Levaquin 500 mg oral tablet 04/02/2016 04/12/2016 take 1 tablet (500 mg) by oral route once daily for 10 days promethazine-codeine 6.25-10 mg/5 mL oral syrup 04/02/2016 [...] an interval of 6 to 8 hours [place] 10-325 mg oral tablet 03/10/2015 12/10/2015 take [...] HC BMI BSA BMI Percentile O2 Sat(%) 04/02/2016 6:49:00 AM 132 mmHg 86 mmHg [...] 03/25/2015 12:00 AM Decadron, Per 1 Mg [facility]# [address]-77 Reviewed 03/25/2015 12:00 AM Depo-Medrol, Per 80 Mg [facility]#3145-3713-43 Reviewed 03/25/2015 12:00 AM Rocephin 1 gram [facility]#1639-2909-28 Reviewed 06/16/2015 12:00 AM Decadron, Per 1 Mg [facility]# [address]-68 Reviewed 06/16/2015 12:00 AM Rocephin 1 gram [facility]#0589-1814-54 Reviewed 07/14/2015 12:00 AM Removal impacted cerumen [...] INJ SC/IM Reviewed 04/03/2011 12:00 AM Decadron Inj.1mg-([facility] #[id number] Reviewed 04/03/2011 12:00 AM Depo-Medrol 80 Mg Im/ Tr [facility] [id number] Reviewed 10/13/2015 12:00 AM Decadron, Per 1 Mg [facility]# [address]-63 Reviewed 10/13/2015 12:00 AM Rocephin 1 gram [facility]#4613-1609-02 Reviewed 07/11/2011 12:00 AM THER/PROPH/DIAG INJ SC/IM Reviewed 07/11/2011 12:00 AM Decadron Inj.1mg-([facility] #[id number] Reviewed 07/11/2011 12:00 AM Depo-Medrol 80 Mg Im/ Tr [facility] [id number] Reviewed 07/11/2011 12:00 AM Rocephin, Per 250MG - 1 Gram Vial [facility] [id number]-Ly Paul Reviewed 04/01/2016 12:00 AM THERAPEUTIC PROPHYLACTIC/DX INJECTION SUBQ/IM Reviewed 10/09/2011 12:00 AM ROUTINE VENIPUNCTURE Reviewed [...] Reviewed 01/08/2012 12:00 AM Rocephin 1 gram [facility]#9423-2133-57 Reviewed 02/08/2012 12:00 AM Flu Injection 3 Years And Above [facility]# [address]-40 [facility] Reviewed 02/08/2012 12:00 AM PNEUMOCOCCAL VACC 23 EVY IM Reviewed 05/19/2012 12:00 AM THER/PROPH/DIAG INJ SC/IM Reviewed 05/19/2012 12:00 AM Decadron, Per 1 Mg [facility]# [address]-75 Reviewed 05/19/2012 12:00 AM Rocephin 1 gram [facility]#6176-3632-90 Reviewed 06/23/2012 12:00 AM THER/PROPH/DIAG INJ SC/IM Reviewed 06/23/2012 12:00 AM Decadron, Per 1 Mg [facility]# [address]-12 Reviewed 06/23/2012 12:00 AM Depo-Medrol, Per 80 Mg [facility]#5329-2395-07 Reviewed 12/01/2012 12:00 AM THER/PROPH/DIAG INJ SC/IM Reviewed 12/01/2012 12:00 AM Decadron, Per 1 Mg [facility]# [address]-79 Reviewed 12/01/2012 12:00 AM Depo-Medrol, Per 80 Mg [facility]#6622-9169-44 Reviewed 07/11/2009 12:00 AM Toradol 15 Mg[facility]#[id number] Reviewed 01/26/2013 12:00 AM THER/PROPH/DIAG INJ SC/IM Reviewed 01/26/2013 12:00 AM Decadron, Per 1 Mg [facility]# [address]-19 Reviewed 04/17/2013 12:00 AM THER/PROPH/DIAG INJ SC/IM Reviewed 04/17/2013 12:00 AM Decadron, Per 12 Mg [facility]# [address]-07 Reviewed 04/27/2013 12:00 AM THER/PROPH/DIAG INJ SC/IM Reviewed 04/27/2013 12:00 AM Decadron, Per 12 Mg [facility]# [address]-65 Reviewed 04/27/2013 12:00 AM Rocephin 1 gram [facility]#0348-3482-88 Reviewed 05/29/2013 12:00 AM COMPLETE CBC W/AUTO DIFF WBC Reviewed 05/29/2013 12:00 AM COMPREHEN METABOLIC PANEL Reviewed 05/29/2013 12:00 AM GLYCOSYLATED HEMOGLOBIN TEST Reviewed 05/29/2013 12:00 AM LIPID PANEL Reviewed 05/29/2013 12:00 AM ASSAY OF PSA TOTAL Reviewed 05/29/2013 12:00 AM ROUTINE VENIPUNCTURE Reviewed 05/29/2013 12:00 AM THER/PROPH/DIAG INJ SC/IM Reviewed 05/29/2013 12:00 AM Decadron, Per 12 Mg [facility]# [address]-36 Reviewed 02/16/2010 12:00 AM ROUTINE VENIPUNCTURE Reviewed 02/16/2010 12:00 AM METABOLIC PANEL TOTAL CA Reviewed 02/16/2010 12:00 AM GLYCOSYLATED HEMOGLOBIN TEST Reviewed 08/17/2013 12:00 AM THER/PROPH/DIAG INJ SC/IM Reviewed 08/17/2013 12:00 AM Decadron, Per 1 Mg [facility]# [address]-61 Reviewed 08/17/2013 12:00 AM Rocephin 1 gram [facility]#4153-1667-23 Reviewed 09/07/2013 12:00 AM THER/PROPH/DIAG INJ SC/IM Reviewed 09/07/2013 12:00 AM Decadron, Per 1 Mg [facility]# [address]-92 Reviewed 09/29/2013 12:00 AM THER/PROPH/DIAG INJ SC/IM Reviewed 09/29/2013 12:00 AM Decadron, Per 1 Mg [place]# [address]-13 Reviewed 09/29/2013 12:00 AM Rocephin 1 gram [facility]#8526-3068-30 Reviewed 12/28/2013 12:00 AM THER/PROPH/DIAG INJ SC/IM Reviewed 12/28/2013 12:00 AM Decadron, Per 1 Mg [facility]# [address]-25 Reviewed 02/17/2014 12:00 AM IMMUNIZATION ADMIN Reviewed 02/17/2014 12:00 AM THER/PROPH/DIAG INJ SC/IM Reviewed 02/17/2014 12:00 AM Decadron, Per 1 Mg [facility]# [address]-46 Reviewed 02/17/2014 12:00 AM Depo-Medrol, Per 80 Mg [facility]#0111-3052-83 Reviewed 02/17/2014 12:00 AM Rocephin 1 gram [facility]#4057-4185-85 Reviewed 04/06/2014 12:00 AM THER/PROPH/DIAG INJ SC/IM Reviewed 04/06/2014 12:00 AM Rocephin 1 gram [facility]#6266-9694-76 Reviewed 05/03/2014 12:00 AM THER/PROPH/DIAG INJ SC/IM Reviewed 05/03/2014 12:00 AM Decadron, Per 1 Mg [facility]# [address]-44 Reviewed 05/03/2014 12:00 AM Rocephin 1 gram [facility]#8256-8595-20 Reviewed 05/31/2014 12:00 AM THER/PROPH/DIAG INJ SC/IM Reviewed 05/31/2014 12:00 AM Decadron, Per 1 Mg [facility]# [address]-61 Reviewed Results Summary Data and Description Results [...] [employer] MSD Pneumovax 23 [id number] Intramuscular Left Deltoid 02/08/2012 06/17/2009 999 Influenza [...] Acute COPD exacerbation Apr 02 2016 6:50AM Payers Insurance Name Company Name Plan Name Plan Number Policy Number Policy Group Number Start Date Medicare RHC Medicare RHC [id number] N/A [employer] - R[place] State [place] [employer] - [place] State Plan [id number] N/A Medicare Part A Medicare - Lab/Xray [id number] N/A [place] [employer] [place] [employer] [place] Prog [id number] N/A Medicare Part B Medicare Secondary [id number] Sunday, May 02, 2010 Medicare Part A Medicare Part A [id number] N/A [employer] [place] State Plan [employer] State Plan [id number] N/A History of Encounters Visit Date Visit Type Provider 04/01/2016 Office visit ADRYAN CARLISLE 01/30/2016 Office visit Adryan Burnham MD 01/17/2016 [facility] Adryan Burnham MD 01/09/2016 Office visit [...] ADRYAN CARLISLE 02/17/2014 Voided 02/17/2014 Voided ADRYAN CARLISLE 12/28/2013 Office visit 12/28/2013 Office visit ADRYAN CARLISLE 10/30/2013 Office visit ADRYAN CARLISLE 09/29/2013 Office visit ADRYAN GUTIÉRREZ [place] 09/07/2013 [...]
--- OUTSIDE RECORDS SUMMARY | 2018-05-04 07:48 | XMS REPORT ---
Author ADRYAN Montenegro [facility] Address [address] [place], [place] [address] Care Team Providers Care Product Development Actuary Name Role Phone ADRYAN GUTIÉRREZ PCP Unavailable [...] Syringe DIRECTED 06/30/2014 0.5ml 31Guage 8mm 07/17 [facility] simvastatin 20 mg oral tablet 09/24/2014 TAKE [...] 10 days Levaquin 500 mg oral tablet 09/28/2016 10/08/2016 take 1 tablet (500 mg) by oral route once daily for 10 days Zofran ODT 4 mg oral tablet,disintegrating 10/03/2016 10/05/2016 take 2 tablets (8 mg) and place on top of the tongue where they will dissolve, then swallow by oral route every 8 hours Discontinued Name Start Date Discontinued Date SIG [...] (18 mcg) by inhalation route once daily [place] 10-325 mg oral tablet 03/10/2015 12/10/2015 take [...] HC BMI BSA BMI Percentile O2 Sat(%) 10/03/2016 2:19:00 PM 112 mmHg 60 mmHg 70 bpm 16 rpm 97.4 F 263 lbs 96 % 10/01/2016 10:07:00 AM 92 mmHg 62 mmHg 82 bpm 16 rpm 95.3 F 72 in 96 % 09/28/2016 9:56:00 AM 132 mmHg 80 mmHg 80 bpm 16 rpm 97.7 F 258 lbs 72 in 34.9907 kg/m 2.44 m2 95 % 09/27/2016 5:13:00 PM 126 mmHg 84 mmHg 78 bpm 16 rpm 97.4 F 258 lbs 72 in 34.99 kg/m2 2.4382 m 96 % 06/18/2016 1:13:00 PM 114 mmHg 72 mmHg 76 bpm 18 rpm 94.2 F 258 lbs 72 in 34.9907 kg/m 2.44 m2 96 % 06/13/2016 1:04:00 PM 128 mmHg 60 mmHg 74 bpm 18 rpm 96.1 F 260 lbs 72 in 35.26 kg/m2 2.4477 m 95 % 05/04/2016 11:21:00 AM 108 mmHg 70 mmHg 86 bpm 18 rpm 97.4 F 260.375 lbs 72 in 35.3128 kg/m 2.45 m2 95 % 04/02/2016 6:49:00 AM 132 mmHg 86 mmHg 86 bpm 16 rpm 97.2 F 259 lbs 72 in 35.13 kg/m2 2.443 m 98 % 01/09/2016 1:55:00 PM 118 mmHg 64 mmHg 66 bpm 20 rpm 96.6 F 259 lbs 72 in 35.1264 kg/m 2.44 m2 96 % 01/06/2016 11:43:00 AM 125 mmHg 78 mmHg 60 bpm 16 rpm 97.8 F 257 lbs 72 in 34.86 kg/m2 2.4335 m 98 % 12/09/2015 10:26:00 AM 125 mmHg 72 mmHg 68 bpm 16 rpm 98.2 F 254 lbs 74 in 32.6113 kg/m 2.45 m2 96 % 10/13/2015 10:07:00 AM 118 mmHg 68 mmHg 64 bpm 16 rpm 97.4 F 259 lbs 72 in 35.13 kg/m2 2.443 m 98 % 07/15/2015 11:35:00 AM 135 mmHg 70 mmHg 65 bpm 18 rpm 97.4 F 254.375 lbs 72 in 34.4991 kg/m 2.42 m2 95 % 06/16/2015 10:56:00 AM 135 mmHg 78 mmHg 80 bpm 18 rpm 98 F 255 lbs 95 % 03/10/2015 10:05:00 AM 132 mmHg 88 mmHg 62 bpm 16 rpm 96.7 F 255 lbs 72 in 34.5839 kg/m 2.42 m2 95 % 11/26/2014 10:43:00 AM 130 mmHg 70 mmHg 70 bpm 20 rpm 97.8 F 252 lbs 72 in 34.18 kg/m2 2.4097 m 96 % 08/09/2014 10:53:00 AM 100 mmHg 70 mmHg 80 bpm 18 rpm 96.4 F 256 lbs 72 in 34.7195 kg/m 2.43 m2 96 % 06/16/2014 10:58:00 AM 120 mmHg 70 mmHg 66 bpm 18 rpm 97.3 F 255 lbs 72 in 34.58 kg/m2 2.424 m 97 % 06/11/2014 11:32:00 AM 110 mmHg 70 mmHg 70 bpm 20 rpm 95.9 F 251 lbs 72 in 34.0414 kg/m 2.40 m2 94 % 05/31/2014 10:38:00 AM 95 mmHg 60 mmHg 80 bpm 22 rpm 97.5 F 256 lbs 71 in 35.70 kg/m2 2.4118 m 94 % 05/03/2014 10:30:00 AM 125 mmHg 70 mmHg 71 bpm 18 rpm 96.5 F 258 lbs 72 in 34.9907 kg/m 2.44 m2 95 % 04/06/2014 10:13:00 AM 102 mmHg 68 mmHg 71 bpm 18 rpm 96.6 F 261.375 lbs 72 in 35.45 kg/m2 2.4541 m 97 % 02/17/2014 10:14:00 AM 138 mmHg 70 mmHg 66 bpm 22 rpm 94.6 F 256 lbs 72 in 34.7195 kg/m 2.43 m2 95 % 12/28/2013 10:00:00 AM 126 mmHg 72 mmHg 74 bpm 22 rpm 95.6 F 256 lbs 72 in 34.72 kg/m2 2.4288 m 95 % 10/30/2013 10:26:00 AM 134 mmHg 64 mmHg 68 bpm 16 rpm 96.6 F 255 lbs 72 in 34.5839 kg/m 2.42 m2 97 % 09/29/2013 11:25:00 AM 102 mmHg 68 mmHg 61 bpm 18 rpm 96.7 F 257.5 lbs 72 in 34.92 kg/m2 2.4359 m 95 % 09/07/2013 10:11:00 AM 154 mmHg 80 mmHg 74 bpm 24 rpm 96.3 F 254 lbs 72 in 34.4482 kg/m 2.42 m2 97 % 08/17/2013 10:06:00 AM 118 mmHg 62 mmHg 76 bpm 24 rpm 97.2 F 254 lbs 72 in 34.45 kg/m2 2.4193 m 97 % 05/29/2013 8:47:00 AM 140 mmHg 78 mmHg 60 bpm 24 rpm 98.5 F 253 lbs 72 in 34.3126 kg/m 2.41 m2 96 % 04/27/2013 10:04:00 AM 112 mmHg 60 mmHg 72 bpm 24 rpm 96 F 252 lbs 72 in 34.18 kg/m2 2.4097 m 96 % 04/17/2013 10:09:00 AM 130 mmHg 64 mmHg 70 bpm 22 rpm 97.1 F 249 lbs 72 in 33.7701 kg/m 2.40 m2 95 % 03/30/2013 10:30:00 AM 110 mmHg 60 mmHg 72 bpm 24 rpm 96.6 F 250 lbs 72 in 33.91 kg/m2 2.4001 m 95 % 01/26/2013 9:54:00 AM 106 mmHg 60 mmHg 76 bpm 24 rpm 96.4 F 250 lbs 72 in 33.9057 kg/m 2.40 m2 98 % 12/01/2012 9:55:00 AM 120 mmHg 70 mmHg 66 bpm 18 rpm 98.8 F 252 lbs 72 in 34.18 kg/m2 2.4097 m 96 % 06/23/2012 10:35:00 AM 120 mmHg 60 mmHg 76 bpm 20 rpm 95.4 F 249 lbs 72 in 33.7701 kg/m 2.40 m2 96 % 05/19/2012 9:43:00 AM 130 mmHg 60 mmHg 90 bpm 24 rpm 96.3 F 251.312 lbs 72 in 34.08 kg/m2 2.4064 m 94 % 01/08/2012 1:21:00 PM 100 mmHg 65 mmHg 78 bpm 18 rpm 95.6 F 242 lbs 72 in 32.8208 kg/m 2.36 m2 97 % 12/11/2011 10:36:00 AM 126 mmHg 62 mmHg 76 bpm 18 rpm 95.7 F 235 lbs 74 in 30.17 kg/m2 2.3591 m 98 % 10/09/2011 8:47:00 AM 140 mmHg 80 mmHg 88 bpm 225 lbs 72 in 30.5152 kg/m 2.28 m2 08/28/2011 9:30:00 AM 108 mmHg 72 mmHg 76 bpm 228 lbs 72 in 30.92 kg/m2 2.2921 m 97 % 08/01/2011 8:51:00 AM [...] 1 Mg [facility]# [address]-19 Reviewed 03/25/2015 12:00 AM Depo-Medrol, Per 80 Mg [facility]#7246-2116-87 Reviewed 03/25/2015 12:00 AM Rocephin 1 gram [facility]#1877-0416-08 Reviewed 06/16/2015 12:00 AM Decadron, Per 1 Mg [facility]# [address]-30 Reviewed 06/16/2015 12:00 AM Rocephin 1 gram [facility]#0993-0108-78 Reviewed 07/14/2015 12:00 AM Removal impacted cerumen [...] AM Decadron Inj.1mg-([facility]) [facility] #[id number] Reviewed 04/03/2011 12:00 AM Depo-Medrol 80 Mg Im/St Tr [facility] [id number] Reviewed 10/13/2015 12:00 AM Decadron, Per 1 Mg [facility]# [address]-13 Reviewed 10/13/2015 12:00 AM Rocephin 1 gram [facility]#4014-6158-29 Reviewed 07/11/2011 12:00 AM THER/PROPH/DIAG INJ SC/IM Reviewed 07/11/2011 12:00 AM Decadron Inj.1mg-([facility]) [facility] #[id number] Reviewed 07/11/2011 12:00 AM Depo-Medrol 80 Mg Im/St Tr [facility] [id number] Reviewed 07/11/2011 12:00 AM Rocephin, Per 250MG - 1 Gram Vial [facility] [id number]-Mn Paul Reviewed 04/01/2016 12:00 AM THERAPEUTIC PROPHYLACTIC/DX INJECTION SUBQ/IM Reviewed 04/01/2016 12:00 AM Decadron 8mg Injection, [facility] Medicare Reviewed 06/13/2016 12:00 AM THER/PROPH/DIAG INJ SC/IM Reviewed 06/13/2016 12:00 AM Decadron 8mg Injection, [facility] Medicare Reviewed 06/13/2016 12:00 AM Rocephin 1 gram Injection, [facility] Medicare Reviewed 10/09/2011 12:00 AM ROUTINE VENIPUNCTURE Reviewed 10/09/2011 12:00 AM COMPLETE CBC W/AUTO DIFF WBC Reviewed 10/09/2011 12:00 AM COMPREHEN METABOLIC PANEL Reviewed 10/09/2011 12:00 AM GLYCOSYLATED HEMOGLOBIN TEST Reviewed 10/09/2011 12:00 AM LIPID PANEL Reviewed 10/09/2011 12:00 AM MICROALBUMIN SEMIQUANT Reviewed 09/28/2016 12:00 AM THERAPEUTIC PROPHYLACTIC/DX INJECTION SUBQ/IM Reviewed 09/28/2016 12:00 AM Decadron 8mg Injection, [facility] Medicare Reviewed 09/28/2016 12:00 AM Rocephin 1 gram Injection, [facility] Medicare Reviewed 05/20/2009 12:00 AM ROUTINE VENIPUNCTURE Reviewed 05/20/2009 12:00 AM ASSAY OF PSA FREE Reviewed 05/20/2009 12:00 AM ASSAY OF PSA TOTAL Reviewed 01/08/2012 12:00 AM THER/PROPH/DIAG INJ SC/IM Reviewed 01/08/2012 12:00 AM Rocephin 1 gram [facility]#6771-2021-19 Reviewed 02/08/2012 12:00 AM Flu Injection 3 Years And Above [facility]# [address]-70 C Reviewed 02/08/2012 12:00 AM PNEUMOCOCCAL VACC 23 EVY IM Reviewed 05/19/2012 12:00 AM THER/PROPH/DIAG INJ SC/IM Reviewed 05/19/2012 12:00 AM Decadron, Per 1 Mg [facility]# [address]-74 Reviewed 05/19/2012 12:00 AM Rocephin 1 gram [facility]#0921-9356-63 Reviewed 06/23/2012 12:00 AM THER/PROPH/DIAG INJ SC/IM Reviewed 06/23/2012 12:00 AM Decadron, Per 1 Mg [facility]# [address]-52 Reviewed 06/23/2012 12:00 AM Depo-Medrol, Per 80 Mg [facility]#9394-1235-72 Reviewed 12/01/2012 12:00 AM THER/PROPH/DIAG INJ SC/IM Reviewed 12/01/2012 12:00 AM Decadron, Per 1 Mg [facility]# [address]-63 Reviewed 12/01/2012 12:00 AM Depo-Medrol, Per 80 Mg [facility]#4573-6244-26 Reviewed 07/11/2009 12:00 AM Toradol 15 Mg,[facility]#0409-258107 Reviewed 01/26/2013 12:00 AM THER/PROPH/DIAG INJ SC/IM Reviewed 01/26/2013 12:00 AM Decadron, Per 1 Mg [facility]# [address]-45 Reviewed 04/17/2013 12:00 AM THER/PROPH/DIAG INJ SC/IM Reviewed 04/17/2013 12:00 AM Decadron, Per 12 Mg [facility]# [address]-00 Reviewed 04/27/2013 12:00 AM THER/PROPH/DIAG INJ SC/IM Reviewed 04/27/2013 12:00 AM Decadron, Per 12 Mg [facility]# [address]-65 Reviewed 04/27/2013 12:00 AM Rocephin 1 gram [facility]#0752-8187-15 Reviewed 05/29/2013 12:00 AM COMPLETE CBC W/AUTO DIFF WBC Reviewed 05/29/2013 12:00 AM COMPREHEN METABOLIC PANEL Reviewed 05/29/2013 12:00 AM GLYCOSYLATED HEMOGLOBIN TEST Reviewed 05/29/2013 12:00 AM LIPID PANEL Reviewed 05/29/2013 12:00 AM ASSAY OF PSA TOTAL Reviewed 05/29/2013 12:00 AM ROUTINE VENIPUNCTURE Reviewed 05/29/2013 12:00 AM THER/PROPH/DIAG INJ SC/IM Reviewed 05/29/2013 12:00 AM Decadron, Per 12 Mg [facility]# [address]-97 Reviewed 02/16/2010 12:00 AM ROUTINE VENIPUNCTURE Reviewed 02/16/2010 12:00 AM METABOLIC PANEL TOTAL CA Reviewed 02/16/2010 12:00 AM GLYCOSYLATED HEMOGLOBIN TEST Reviewed 08/17/2013 12:00 AM THER/PROPH/DIAG INJ SC/IM Reviewed 08/17/2013 12:00 AM Decadron, Per 1 Mg [facility]# [address]-80 Reviewed 08/17/2013 12:00 AM Rocephin 1 gram [facility]#3835-9565-06 Reviewed 09/07/2013 12:00 AM THER/PROPH/DIAG INJ SC/IM Reviewed 09/07/2013 12:00 AM Decadron, Per 1 Mg [facility]# [address]-47 Reviewed 09/29/2013 12:00 AM THER/PROPH/DIAG INJ SC/IM Reviewed 09/29/2013 12:00 AM Decadron, Per 1 Mg [facility]# [address]-74 Reviewed 09/29/2013 12:00 AM Rocephin 1 gram [facility]#2352-8750-25 Reviewed 12/28/2013 12:00 AM THER/PROPH/DIAG INJ SC/IM Reviewed 12/28/2013 12:00 AM Decadron, Per 1 Mg [facility]# [address]-74 Reviewed 02/17/2014 12:00 AM IMMUNIZATION ADMIN Reviewed 02/17/2014 12:00 AM THER/PROPH/DIAG INJ SC/IM Reviewed 02/17/2014 12:00 AM Decadron, Per 1 Mg [facility]# [address]-28 Reviewed 02/17/2014 12:00 AM Depo-Medrol, Per 80 Mg [facility]#5028-1540-57 Reviewed 02/17/2014 12:00 AM Rocephin 1 gram [facility]#4373-4287-22 Reviewed 04/06/2014 12:00 AM THER/PROPH/DIAG INJ SC/IM Reviewed 04/06/2014 12:00 AM Rocephin 1 gram [facility]#3639-1905-79 Reviewed 05/03/2014 12:00 AM THER/PROPH/DIAG INJ SC/IM Reviewed 05/03/2014 12:00 AM Decadron, Per 1 Mg [facility]# [address]-87 Reviewed 05/03/2014 12:00 AM Rocephin 1 gram [facility]#0419-3812-13 Reviewed 05/31/2014 12:00 AM THER/PROPH/DIAG INJ SC/IM Reviewed 05/31/2014 12:00 AM Decadron, Per 1 Mg [facility]# [address]-66 Reviewed Results Summary Date and Description Results [...] [employer] MSD Pneumovax 23 [id number] Intramuscular Left Deltoid 02/08/2012 06/17/2009 999 Influenza [...] difficulty involving reading Oct 03 2016 2:20PM Payers Insurance Name Company Name Plan Name Plan Number Policy Number Policy Group Number Start Date Medicare RHC Medicare RHC [id number] N/A [facility] [facility] [place] [id number] N/A Medicare Part A Medicare - Lab/Xray [id number] N/A [place] [employer] [place] [employer] Prog [id number] N/A Medicare Part B Medicare Secondary [id number] Sunday, May 02, 2010 Medicare Part A Medicare Part A [id number] N/A [facility] State Plan [facility] State Plan [id number] N/A History of Encounters Visit Date Visit Type Provider 10/03/2016 Office visit ADRYAN CARLISLE 10/01/2016 Office visit ADRYAN CARLISLE 09/28/2016 Office visit ADRYAN CARLISLE 09/27/2016 Office visit ADRYAN CARLISLE 06/18/2016 Office visit ADRYAN CARLISLE 06/13/2016 Office visit ADRYAN GUTIÉRREZ PA 05/04/2016 Office visit ADRYAN GUTIÉRREZ PA 04/01/2016 Office visit ADRYAN GUTIÉRREZ PA 01/30/2016 Office visit Adryan Burnham MD 01/17/2016 [facility] Adryan Burnham MD 01/09/2016 Office visit Adryan Burnham MD 01/06/2016 Office visit ADRYAN GUTIÉRREZ PA 12/09/2015 Office visit ADRYAN GUTIÉRREZ PA 10/13/2015 Office visit ADRYAN GUTIÉRREZ PA 07/14/2015 Office visit ADRYAN GUTIÉRREZ PA 06/16/2015 Office visit ADRYAN GUTIÉRREZ PA 03/10/2015 Office visit ADRYAN GUTIÉRREZ PA 11/26/2014 Office visit ADRYAN GUTIÉRREZ PA 08/09/2014 Office visit ADRYAN GUTIÉRREZ PA 06/16/2014 Office visit ADRYAN CARLISLE 06/11/2014 Office [...]
--- OUTSIDE RECORDS SUMMARY | 2018-05-04 07:49 | XMS REPORT ---
Author ADRYAN Montenegro [facility] Address [address] [place], [place] [id number] Care Team Providers Care Raveler Name Role Phone ADRYAN GUTIÉRREZ PCP Unavailable [...] mg ) by oral route once daily Spiriva with HandiHaler 18 mcg inhalation capsule, w/inhalation device 2014 inhale 1 capsule (18 mcg) by inhalation route once daily escitalopram oxalate 10 mg oral tablet 06/23/2014 TAKE ONE TABLET BY MOUTH DAILY BD Insulin Syringe DIRECTED 06/30/2014 0.5ml 31Guage 8mm 07/17 [facility] simvastatin 20 mg oral tablet 09/24/2014 [...] MOUTH ONCE DAILY IN THE THE EVENING Lexapro 10 mg oral tablet 10/13/2015 take 1 tablet (10 mg) by oral [...] an interval of 6 to 8 hours [place] 10-325 mg oral tablet 03/10/2015 12/10/2015 take [...] HC BMI BSA BMI Percentile O2 Sat(%) 12/09/2015 10:26:00 AM 125 mmHg 72 mmHg 68 bpm 16 rpm 98.2 F 254 lbs 74 in 32.61 kg/m2 2.45 m2 96 % 10/13/2015 10:07:00 AM 118 mmHg 68 mmHg 64 bpm 16 rpm 97.4 F 259 lbs 72 in 35.1264 kg/m 2.443 m 98 % 07/15/2015 11:35:00 AM 135 mmHg 70 mmHg 65 bpm 18 rpm 97.4 F 254.375 lbs 72 in 34.50 kg/m2 2.42 m2 95 % 06/16/2015 10:56:00 AM 135 mmHg 78 mmHg 80 bpm 18 rpm 98 F 255 lbs 95 % 03/10/2015 10:05:00 AM 132 mmHg 88 mmHg 62 bpm 16 rpm 96.7 F 255 lbs 72 in 34.58 kg/m2 2.42 m2 95 % 11/26/2014 10:43:00 AM 130 mmHg 70 mmHg 70 bpm 20 rpm 97.8 F 252 lbs 72 in 34.177 kg/m 2.4097 m 96 % 08/09/2014 10:53:00 AM 100 mmHg 70 mmHg 80 bpm 18 rpm 96.4 F 256 lbs 72 in 34.72 kg/m2 2.43 m2 96 % 06/16/2014 10:58:00 AM 120 mmHg 70 mmHg 66 bpm 18 rpm 97.3 F 255 lbs 72 in 34.5839 kg/m 2.424 m 97 % 06/11/2014 11:32:00 AM 110 mmHg 70 mmHg 70 bpm 20 rpm 95.9 F 251 lbs 72 in 34.04 kg/m2 2.40 m2 94 % 05/31/2014 10:38:00 AM 95 mmHg 60 mmHg 80 bpm 22 rpm 97.5 F 256 lbs 71 in 35.7044 kg/m 2.4118 m 94 % 05/03/2014 10:30:00 AM 125 mmHg 70 mmHg 71 bpm 18 rpm 96.5 F 258 lbs 72 in 34.99 kg/m2 2.44 m2 95 % 04/06/2014 10:13:00 AM 102 mmHg 68 mmHg 71 bpm 18 rpm 96.6 F 261.375 lbs 72 in 35.4485 kg/m 2.4541 m 97 % 02/17/2014 10:14:00 AM 138 mmHg 70 mmHg 66 bpm 22 rpm 94.6 F 256 lbs 72 in 34.72 kg/m2 2.43 m2 95 % 12/28/2013 10:00:00 AM 126 mmHg 72 mmHg 74 bpm 22 rpm 95.6 F 256 lbs 72 in 34.7195 kg/m 2.4288 m 95 % 10/30/2013 10:26:00 AM [...] 03/25/2015 12:00 AM Decadron, Per 1 Mg [facility]# [address]-44 Reviewed 03/25/2015 12:00 AM Depo-Medrol, Per 80 Mg [facility]#0549-5220-56 Reviewed 03/25/2015 12:00 AM Rocephin 1 gram [facility]#4221-0875-34 Reviewed 06/16/2015 12:00 AM Decadron, Per 1 Mg [facility]# [address]-49 Reviewed 06/16/2015 12:00 AM Rocephin 1 gram [facility]#3156-5286-84 Reviewed 07/14/2015 12:00 AM Removal impacted cerumen [...] Reviewed 04/03/2011 12:00 AM Decadron Inj.1mg-([facility]) [facility] #[id number] Reviewed 04/03/2011 12:00 AM Depo-Medrol 80 Mg Im/St Tr [facility] [id number] Reviewed 10/13/2015 12:00 AM Decadron, Per 1 Mg [facility]# [address]-48 Reviewed 10/13/2015 12:00 AM Rocephin 1 gram [facility]#6018-6749-56 Reviewed 07/11/2011 12:00 AM THER/PROPH/DIAG INJ SC/IM Reviewed 07/11/2011 12:00 AM Decadron Inj.1mg-([facility]) [facility] #[id number] Reviewed 07/11/2011 12:00 AM Depo-Medrol 80 Mg Im/St Tr [facility] [id number] Reviewed 07/11/2011 12:00 AM Rocephin, Per 250MG - 1 Gram Vial [facility] [id number]-Xk Paul Reviewed 10/09/2011 12:00 AM ROUTINE VENIPUNCTURE [...] Reviewed 01/08/2012 12:00 AM Rocephin 1 gram [facility]#8702-0735-07 Reviewed 02/08/2012 12:00 AM Flu Injection 3 Years And Above [facility]# [address]-03 C Reviewed 02/08/2012 12:00 AM PNEUMOCOCCAL VACC 23 EVY IM Reviewed 05/19/2012 12:00 AM THER/PROPH/DIAG INJ SC/IM Reviewed 05/19/2012 12:00 AM Decadron, Per 1 Mg [facility]# [address]-30 Reviewed 05/19/2012 12:00 AM Rocephin 1 gram [facility]#5133-8223-92 Reviewed 06/23/2012 12:00 AM THER/PROPH/DIAG INJ SC/IM Reviewed 06/23/2012 12:00 AM Decadron, Per 1 Mg [facility]# [address]-19 Reviewed 06/23/2012 12:00 AM Depo-Medrol, Per 80 Mg [facility]#2040-6325-72 Reviewed 12/01/2012 12:00 AM THER/PROPH/DIAG INJ SC/IM Reviewed 12/01/2012 12:00 AM Decadron, Per 1 Mg [facility]# [address]-81 Reviewed 12/01/2012 12:00 AM Depo-Medrol, Per 80 Mg [facility]#2562-9989-33 Reviewed 07/11/2009 12:00 AM Toradol 15 Mg,[facility]#[id number] Reviewed 01/26/2013 12:00 AM THER/PROPH/DIAG INJ SC/IM Reviewed 01/26/2013 12:00 AM Decadron, Per 1 Mg [facility]# [address]-61 Reviewed 04/17/2013 12:00 AM THER/PROPH/DIAG INJ SC/IM Reviewed 04/17/2013 12:00 AM Decadron, Per 12 Mg [facility]# [address]-23 Reviewed 04/27/2013 12:00 AM THER/PROPH/DIAG INJ SC/IM Reviewed 04/27/2013 12:00 AM Decadron, Per 12 Mg [facility]# [address]-30 Reviewed 04/27/2013 12:00 AM Rocephin 1 gram [facility]#6100-7138-63 Reviewed 05/29/2013 12:00 AM COMPLETE CBC W/AUTO DIFF WBC Reviewed 05/29/2013 12:00 AM COMPREHEN METABOLIC PANEL Reviewed 05/29/2013 12:00 AM GLYCOSYLATED HEMOGLOBIN TEST Reviewed 05/29/2013 12:00 AM LIPID PANEL Reviewed 05/29/2013 12:00 AM ASSAY OF PSA TOTAL Reviewed 05/29/2013 12:00 AM ROUTINE VENIPUNCTURE Reviewed 05/29/2013 12:00 AM THER/PROPH/DIAG INJ SC/IM Reviewed 05/29/2013 12:00 AM Decadron, Per 12 Mg [facility]# [address]-36 Reviewed 02/16/2010 12:00 AM ROUTINE VENIPUNCTURE Reviewed 02/16/2010 12:00 AM METABOLIC PANEL TOTAL CA Reviewed 02/16/2010 12:00 AM GLYCOSYLATED HEMOGLOBIN TEST Reviewed 08/17/2013 12:00 AM THER/PROPH/DIAG INJ SC/IM Reviewed 08/17/2013 12:00 AM Decadron, Per 1 Mg [facility]# [address]-21 Reviewed 08/17/2013 12:00 AM Rocephin 1 gram [facility]#1539-7003-01 Reviewed 09/07/2013 12:00 AM THER/PROPH/DIAG INJ SC/IM Reviewed 09/07/2013 12:00 AM Decadron, Per 1 Mg [facility]# [address]-13 Reviewed 09/29/2013 12:00 AM THER/PROPH/DIAG INJ SC/IM Reviewed 09/29/2013 12:00 AM Decadron, Per 1 Mg [place]# [address]-79 Reviewed 09/29/2013 12:00 AM Rocephin 1 gram [place]#9974-6648-14 Reviewed 12/28/2013 12:00 AM THER/PROPH/DIAG INJ SC/IM Reviewed 12/28/2013 12:00 AM Decadron, Per 1 Mg [facility]# [address]-27 Reviewed 02/17/2014 12:00 AM IMMUNIZATION ADMIN Reviewed 02/17/2014 12:00 AM THER/PROPH/DIAG INJ SC/IM Reviewed 02/17/2014 12:00 AM Decadron, Per 1 Mg [place]# [address]-58 Reviewed 02/17/2014 12:00 AM Depo-Medrol, Per 80 Mg [facility]#6195-0711-26 Reviewed 02/17/2014 12:00 AM Rocephin 1 gram [facility]#7596-6696-23 Reviewed 04/06/2014 12:00 AM THER/PROPH/DIAG INJ SC/IM Reviewed 04/06/2014 12:00 AM Rocephin 1 gram [facility]#[address]22[address]-00 Reviewed 05/03/2014 12:00 AM THER/PROPH/DIAG INJ SC/IM Reviewed 05/03/2014 12:00 AM Decadron, Per 1 Mg [facility]# [address]-67 Reviewed 05/03/2014 12:00 AM Rocephin 1 gram [facility]#8854-[address]69-80 Reviewed 05/31/2014 12:00 AM THER/PROPH/DIAG INJ SC/IM Reviewed 05/31/2014 12:00 AM Decadron, Per 1 Mg [facility]# [address]-87 Reviewed Results Summary Data and Description Results [...] BILI 0.80 mg/dLCALCIUM 9.60 mg/dLeGFR >60 mL/min/1.73 [id number] 132.0 mg/dLCHOLESTEROL 109.0 mg/ dLHDL 32.0 mg/dLLDL [...] %MPV 11.0 fLPLT 260 05/29/2013 3:39 PM Est Avg Glucose 151.3 mg/dLWBC 4.6 RBC 5.16 HGB 15.70 g/ dLHCT 46.90 %MCV 91.0 fLMCH 30.40 pgMCHC 33.50 g/dLRDW CV 14.0 %MPV 10.80 fLPLT 208 %NEUT 63.0 %%LYMP 23.80 %%MONO 10.0 %%EOS 2.80 %%BASO 0.40 %#NEUT 2.91 # LYMP 1.10 #MONO 0.46 #EOS 0.13 #BASO 0.02 GLUCOSE 99.0 mg/dLSODIUM 139.0 mmol/ LPOTASSIUM 4.50 mmol/LCHLORIDE 105.0 mmol/LCO2 25.0 mmol/LBUN 20.0 mg/ dLCREATININE 1.0 mg/dLSGOT/AST 20.0 IU/LSGPT/ALT 19.0 IU/LALK PHOS [...] [employer] MSD Pneumovax 23 [id number] Intramuscular Left Deltoid 02/08/2012 06/17/2009 999 Influenza [...] difficulty involving reading Dec 09 2015 10:26AM Payers Insurance Name Company Name Plan Name Plan Number Policy Number Policy Group Number Start Date Medicare Part A Medicare RHC [id number] N/A [employer] - [facility] [place] State Plan [facility] - [facility] [place] State Plan [id number] N/A Medicare Part A Medicare - Lab/Xray [id number] N/A [place] Medical [employer] [facility] Medical Assistance Prog [id number] N/A Medicare Part B Medicare Secondary [id number] Sunday, May 02, 2010 Medicare Part A Medicare Part A [id number] N/A History of Encounters Visit Date Visit Type Provider 12/09/2015 Office visit ADRYAN CARLISLE 10/13/2015 Office [...] visit ADRYAN CARLISLE 10/30/2013 Office visit ADRYAN GUTIÉRREZ PA 09/29/2013 [...]
--- OUTSIDE RECORDS SUMMARY | 2018-05-04 07:51 | XMS REPORT ---
Author Author ADRYAN GUTIÉRREZ [facility] Address [address] [place], [place] [address] Care Team Providers Care Survey Rodman Name Role Phone ADRYAN GUTIÉRREZ PCP Unavailable [...] (10 mg) by oral route once daily Phenergan-Codeine 6.25-10 mg/5 mL oral syrup 04/20/2013 take 5 milliliters by oral route 4 times a day nitroglycerin 0.4 mg sublingual tablet, sublingual 05/27/2013 place 1 tablet (0.4 mg) by sublingual route PRN Patanol 0.1 % ophthalmic drops 11/01/2013 instill 1 drop into affected eye( s) by ophthalmic route 2 times per day at an interval of 6 to 8 hours Flonase 50 mcg/actuation nasal spray,suspension 12/15/2013 inhale 1 spray by nasal route 2 times a day Tessalon Perles 100 mg oral capsule 12/30/2013 take 1 capsule (100 mg) by oral route every 4 hours as needed benazepril 5 mg oral tablet 01/14/2014 TAKE [...] Syringe DIRECTED 06/30/2014 0.5ml 31Guage 8mm 07/17 [facility] Humulin 70/30 100 unit/mL (70-30) subcutaneous suspension 07/05/2014 INJECT 60 UNITS TWICE DAILY Flomax 0.4 mg oral capsule,extended release 24hr 07/15/2014 take 2 capsules (0.8 mg) by oral route once daily 1/2 hour following the same meal each day Klor-Con 10 10 mEq oral tablet extended release 07/15/2014 07/10/2015 take 1 tablet by oral route daily for 30 days Xanax 0.5 mg oral tablet 08/19/2014 02/15/2015 take 1 tablet by oral route 3 times a day for 30 days simvastatin 20 mg oral tablet 09/24/2014 TAKE ONE TABLET BY MOUTH ONCE DAILY IN THE THE EVENING simvastatin 20 mg oral tablet 09/24/2014 TAKE ONE TABLET BY MOUTH ONCE DAILY IN THE THE EVENING Percocet 5-325 mg oral tablet 10/15/2014 take 1 tablet by oral route every 6 hours as needed Name Start Date Expiration Date SIG Comments [...] per day as needed for radiation diarrhea Levaquin 500 mg oral tablet 04/20/2013 04/30/2013 [...] days Zithromax Z-Heri 250 mg oral tablet 04/11/2014 take 2 tablets (500 mg) by oral route once daily for 1 day then 1 tablet (250 mg) by oral route once daily for 4 days Percocet 7.5-325 mg oral tablet 04/11/2014 take 1 tablet by oral route every 6 hours as needed Discontinued Name Start Date Discontinued Date SIG [...] HC BMI BSA BMI Percentile O2 Sat(%) 11/26/2014 10:43:00 AM 130 mmHg 70 mmHg [...] of Procedures Date Ordered Description Order Status 04/03/2011 12:00 AM ROUTINE VENIPUNCTURE Reviewed 04/03/2011 12:00 AM COMPLETE CBC AUTOMATED Returned 04/03/2011 12:00 AM COMPREHEN METABOLIC PANEL Returned 04/03/2011 12:00 AM GLYCOSYLATED HEMOGLOBIN TEST Returned 04/03/2011 12:00 AM LIPID PANEL Returned 04/03/2011 12:00 AM Prostate Cancer Screening PSA Returned 04/03/2011 12:00 AM MICROALBUMIN SEMIQUANT Returned 04/03/2011 12:00 AM THER/PROPH/DIAG INJ SC/IM Reviewed 04/03/2011 12:00 AM Decadron Inj.1mg-([facility]) [facility] #[id number] Reviewed 04/03/2011 12:00 AM Depo-Medrol 80 Mg Im/[facility] [phone] Reviewed 07/11/2011 12:00 AM THER/PROPH/DIAG INJ SC/IM Reviewed 07/11/2011 12:00 AM Decadron Inj.1mg-([facility]) [facility] #[id number] Reviewed 07/11/2011 12:00 AM Depo-Medrol 80 Mg Im/[facility] [id number] Reviewed 07/11/2011 12:00 AM Rocephin, Per 250MG - 1 Gram Vial [facility] 0139-389608-Ht Paul Reviewed 10/09/2011 12:00 AM ROUTINE VENIPUNCTURE [...] 12:00 AM Rocephin 1 gram [facility]#1616-3559-16 Reviewed 02/08/2012 12:00 AM Flu Injection 3 Years And Above [facility]# [address]-05 RHC Reviewed 02/08/2012 12:00 AM PNEUMOCOCCAL VACC 23 EVY IM Reviewed 05/19/2012 12:00 AM THER/PROPH/DIAG INJ SC/IM Reviewed 05/19/2012 12:00 AM Decadron, Per 1 Mg [facility]# [address]-30 Reviewed 05/19/2012 12:00 AM Rocephin 1 gram [facility]#0481-0130-77 Reviewed 06/23/2012 12:00 AM THER/PROPH/DIAG INJ SC/IM Reviewed 06/23/2012 12:00 AM Decadron, Per 1 Mg [facility]# [address]-77 Reviewed 06/23/2012 12:00 AM Depo-Medrol, Per 80 Mg [facility]#5402-[address]-74 Reviewed 12/01/2012 12:00 AM THER/PROPH/DIAG INJ SC/IM Reviewed 12/01/2012 12:00 AM Decadron, Per 1 Mg [facility]# [address]-60 Reviewed 12/01/2012 12:00 AM Depo-Medrol, Per 80 Mg [facility]#8360-7017-13 Reviewed 07/11/2009 12:00 AM Toradol 15 Mg,[facility]#0409-350812 Reviewed 01/26/2013 12:00 AM THER/PROPH/DIAG INJ SC/IM Reviewed 01/26/2013 12:00 AM Decadron, Per 1 Mg [facility]# [address]-95 Reviewed 04/17/2013 12:00 AM THER/PROPH/DIAG INJ SC/IM Reviewed 04/17/2013 12:00 AM Decadron, Per 12 Mg [facility]# [address]-86 Reviewed 04/27/2013 12:00 AM THER/PROPH/DIAG INJ SC/IM Reviewed 04/27/2013 12:00 AM Decadron, Per 12 Mg [facility]# [address]-20 Reviewed 04/27/2013 12:00 AM Rocephin 1 gram [facility]#7206-3362-51 Reviewed 05/29/2013 12:00 AM COMPLETE CBC W/AUTO DIFF WBC Reviewed 05/29/2013 12:00 AM COMPREHEN METABOLIC PANEL Reviewed 05/29/2013 12:00 AM GLYCOSYLATED HEMOGLOBIN TEST Reviewed 05/29/2013 12:00 AM LIPID PANEL Reviewed 05/29/2013 12:00 AM ASSAY OF PSA TOTAL Reviewed 05/29/2013 12:00 AM ROUTINE VENIPUNCTURE Reviewed 05/29/2013 12:00 AM THER/PROPH/DIAG INJ SC/IM Reviewed 05/29/2013 12:00 AM Decadron, Per 12 Mg [facility]# [address]-17 Reviewed 02/16/2010 12:00 AM ROUTINE VENIPUNCTURE Reviewed 02/16/2010 12:00 AM METABOLIC PANEL TOTAL CA Reviewed 02/16/2010 12:00 AM GLYCOSYLATED HEMOGLOBIN TEST Reviewed 08/17/2013 12:00 AM THER/PROPH/DIAG INJ SC/IM Reviewed 08/17/2013 12:00 AM Decadron, Per 1 Mg [facility]# [address]-05 Reviewed 08/17/2013 12:00 AM Rocephin 1 gram [facility]#7285-8532-12 Reviewed 09/07/2013 12:00 AM THER/PROPH/DIAG INJ SC/IM Reviewed 09/07/2013 12:00 AM Decadron, Per 1 Mg [facility]# [address]-58 Reviewed 09/29/2013 12:00 AM THER/PROPH/DIAG INJ SC/IM Reviewed 09/29/2013 12:00 AM Decadron, Per 1 Mg [facility]# [address]-51 Reviewed 09/29/2013 12:00 AM Rocephin 1 gram [facility]#1148-6091-66 Reviewed 12/28/2013 12:00 AM THER/PROPH/DIAG INJ SC/IM Reviewed 12/28/2013 12:00 AM Decadron, Per 1 Mg [facility]# [address]-97 Reviewed 02/17/2014 12:00 AM IMMUNIZATION ADMIN Reviewed 02/17/2014 12:00 AM THER/PROPH/DIAG INJ SC/IM Reviewed 02/17/2014 12:00 AM Decadron, Per 1 Mg [facility]# [address]-90 Reviewed 02/17/2014 12:00 AM Depo-Medrol, Per 80 Mg [facility]#6522-[address]-43 Reviewed 02/17/2014 12:00 AM Rocephin 1 gram [facility]#6253-8782-32 Reviewed 04/06/2014 12:00 AM THER/PROPH/DIAG INJ SC/IM Reviewed 04/06/2014 12:00 AM Rocephin 1 gram [facility]#6989-1071-06 Reviewed 05/03/2014 12:00 AM THER/PROPH/DIAG INJ SC/IM Reviewed 05/03/2014 12:00 AM Decadron, Per 1 Mg [facility]# [address]-24 Reviewed 05/03/2014 12:00 AM Rocephin 1 gram [facility]#5574-0580-35 Reviewed 05/31/2014 12:00 AM THER/PROPH/DIAG INJ SC/IM Reviewed 05/31/2014 12:00 AM Decadron, Per 1 Mg [facility]# [address]-00 Reviewed Results Summary Data and Description Results 02/16/2010 4:41 PM GLYCOHEMOGLOBIN A1C 8.20 %GLUCOSE 196.0 mg/dLSODIUM 137.0 mmol/LPOTASSIUM 4.90 mmol/LCHLORIDE 102.0 mmol/LCO2 23.0 mmol/LBUN 21.0 mg/ dLCREATININE 1.0 mg/dLCALCIUM 9.70 mg/dLeGFR >60 mL/min/1.73 m2 [...] BILI 0.80 mg/dLCALCIUM 9.60 mg/dLeGFR >60 mL/min/1.73 [id number] 132.0 mg/dLCHOLESTEROL 109.0 mg/ dLHDL 32.0 mg/dLLDL (CALC) 51.0 mg/dLCREAT UR 101.60 mg/dLMICROALBUMIN UR 32.0 ug/mLALB:CREAT RATIO 31 PSA TOTAL 9.170 ng/mLGLYCOHEMOGLOBIN A1C 9.40 % 10/09/2011 3:45 PM GLUCOSE [...] g/dLRDW CV 13.20 %MPV 11.0 fLPLT 260 GLYCOHEMOGLOBIN A1C 10.50 % 05/29/2013 3:39 PM [...] Route Inj Vis Given Vis Pub CVX Pneumococcal 02/08/2012 [employer] MSD Pneumovax 23 [id number] Intramuscular Left Deltoid 02/08/2012 06/17/2009 999 Influenza [...] 10:43AM Foot lesion Nov 26 2014 10:43AM Payers Insurance Name Company Name Plan Name Plan Number Policy Number Policy Group Number Start Date Medicare Part A Medicare Part A [id number] N/A [employer] - [facility] [place] State [place] [employer] - [facility] [place] State Plan [id number] N/A [place] [facility] [place] [facility] [place] [facility] [place] Prog [id number] N/A Medicare Part B Medicare Secondary [id number] Sunday, 2010 History of Encounters Visit Date Visit Type Provider 11/26/2014 Office visit ADRYAN CARLISLE 08/09/2014 Office visit ADRYAN GUTIÉRREZ PA 06/16/2014 Office visit ADRYAN GUTIÉRREZ PA 06/11/2014 Office visit ADRYAN GUTIÉRREZ PA 05/31/2014 Office visit ADRYAN GUTIÉRREZ PA 05/03/2014 Office visit ADRYAN GUTIÉRREZ PA 04/06/2014 Office visit ADRYAN GUTIÉRREZ PA 02/17/2014 Voided ADRYAN GUTIÉRREZ PA 12/28/2013 Office visit ADRYAN GUTIÉRREZ PA 10/30/2013 [...] Voided ADRYAN GUTIÉRREZ PA 10/09/2011 Office visit ADYRAN GUTIÉRREZ PA 08/28/2011 Office visit ADRYAN GUTIÉRREZ PA 08/01/2011 Office visit ADRYAN GUTIÉRREZ PA 07/17/2011 Office visit ADRYAN GUTIÉRREZ PA 07/11/2011 Office visit ADRYAN GUTIÉRREZ PA 06/22/2011 Office visit ADRYAN GUTIÉRREZ PA 05/15/2011 Office visit ADRYAN GUTIÉRREZ PA 04/10/2011 Office visit ADRYAN GUTIÉRREZ PA 04/03/2011 Office visit ADRAYN GUTIÉRREZ PA 02/16/2011 Office visit ADRYAN GUTIÉRREZ PA 01/18/2011 Office visit ADRYAN GUTIÉRREZ PA 08/07/2010 Office visit Adryan Gutiérrez PA-C 05/15/2010 Office visit Adryan Gutiérrez PA-C 02/16/2010 Office visit Adryan Gutiérrez PA-C 10/14/2009 Office visit Adryan Gutiérrez PA-C 07/11/2009 Office visit Adryan HOFFMANC 05/20/2009 Laboratory Adryan Gutiérrez PA-C 02/28/2009 Office visit Adryan Gutiérrez PA-C 02/22/2009 Office visit Adryan HOFFMANC 02/17/2009 Laboratory Geo Wallace MD 12/17/2008 Laboratory Adryan Gutiérrez PA-C
--- OUTSIDE RECORDS SUMMARY | 2018-05-04 07:53 | XMS REPORT ---
Author ADRYAN [facility] Address [address] [place], [place] [id number] Care Team Providers Care Dining Room Hostess Name Role Phone ADRYAN GUTIÉRREZ PCP Unavailable [...] Syringe DIRECTED 06/30/2014 0.5ml 31Guage 8mm 07/17 [facility] simvastatin 20 mg oral tablet 09/24/2014 TAKE ONE TABLET BY MOUTH ONCE DAILY IN THE THE EVENING escitalopram oxalate 20 mg oral tablet 12/16/2014 TAKE 1 TABLET BY MOUTH DAILY Xanax 0.5 mg oral tablet 02/03/2015 08/02/2015 take 1 tablet by oral route 3 times a day for 30 days [place] 10-325 mg oral tablet 03/10/2015 take 1 [...] to exceed 30 mL in 24 hours simvastatin 20 mg oral tablet 07/14/2015 TAKE ONE TABLET BY MOUTH ONCE DAILY IN THE THE EVENING Lexapro 10 mg oral tablet 07/14/2015 take 1 tablet (10 mg) by oral route once daily benazepril 5 mg oral tablet 07/14/2015 TAKE 1 TABLET (5 MG) BY ORAL ROUTE ONCE DAILY Flomax 0.4 mg oral capsule,extended release 24hr 07/14/2015 take 2 capsules (0.8 mg) by oral route once daily 1/2 hour following the same meal each day Klor-Con 10 10 mEq oral tablet extended release 07/14/2015 07/08/2016 take 1 tablet by oral route daily for 30 days Name Start Date Expiration Date SIG [...] HC BMI BSA BMI Percentile O2 Sat(%) 07/15/2015 11:35:00 AM 135 mmHg 70 mmHg [...] AM Decadron, Per 1 Mg [facility]# [address]-49 Reviewed 03/25/2015 12:00 AM Depo-Medrol, Per 80 Mg [facility]#[id number] Reviewed 03/25/2015 12:00 AM Rocephin 1 gram [facility]#3065-6265-10 Reviewed 06/16/2015 12:00 AM Decadron, Per 1 Mg [facility]# [address]-35 Reviewed 06/16/2015 12:00 AM Rocephin 1 gram [facility]#0204-1791-41 Reviewed 04/03/2011 12:00 AM ROUTINE VENIPUNCTURE Reviewed 04/03/2011 12:00 AM COMPLETE CBC AUTOMATED Returned 04/03/2011 12:00 AM COMPREHEN METABOLIC PANEL Returned 04/03/2011 12:00 AM GLYCOSYLATED HEMOGLOBIN TEST Returned 04/03/2011 12:00 AM LIPID PANEL Returned 04/03/2011 12:00 AM Prostate Cancer Screening PSA Returned 04/03/2011 12:00 AM MICROALBUMIN SEMIQUANT Returned 04/03/2011 12:00 AM THER/PROPH/DIAG INJ SC/IM Reviewed 04/03/2011 12:00 AM Decadron Inj.1mg-(St.Tr) [facility] #[id number] Reviewed 04/03/2011 12:00 AM Depo-Medrol 80 Mg Im/St Tr [facility] [id number] Reviewed 07/11/2011 12:00 AM THER/PROPH/DIAG INJ SC/IM Reviewed 07/11/2011 12:00 AM Decadron Inj.1mg-(St.Tr) [facility] #[id number] Reviewed 07/11/2011 12:00 AM Depo-Medrol 80 Mg Im/St Tr [facility] [id number] Reviewed 07/11/2011 12:00 AM Rocephin, Per 250MG - 1 Gram Vial [facility] [id number]-Op Tr Reviewed 10/09/2011 12:00 AM ROUTINE VENIPUNCTURE Reviewed [...] 12:00 AM Rocephin 1 gram [facility]#4629-1081-78 Reviewed 02/08/2012 12:00 AM Flu Injection 3 Years And Above [facility]# [address]-30 RHC Reviewed 02/08/2012 12:00 AM PNEUMOCOCCAL VACC 23 EVY IM Reviewed 05/19/2012 12:00 AM THER/PROPH/DIAG INJ SC/IM Reviewed 05/19/2012 12:00 AM Decadron, Per 1 Mg [facility]# [address]-70 Reviewed 05/19/2012 12:00 AM Rocephin 1 gram [facility]#9895-7010-22 Reviewed 06/23/2012 12:00 AM THER/PROPH/DIAG INJ SC/IM Reviewed 06/23/2012 12:00 AM Decadron, Per 1 Mg [facility]# [address]-02 Reviewed 06/23/2012 12:00 AM Depo-Medrol, Per 80 Mg [facility]#[address]-77 Reviewed 12/01/2012 12:00 AM THER/PROPH/DIAG INJ SC/IM Reviewed 12/01/2012 12:00 AM Decadron, Per 1 Mg [facility]# [address]-64 Reviewed 12/01/2012 12:00 AM Depo-Medrol, Per 80 Mg [facility]#2461-4365-06 Reviewed 07/11/2009 12:00 AM Toradol 15 Mg,[facility]#[id number] Reviewed 01/26/2013 12:00 AM THER/PROPH/DIAG INJ SC/IM Reviewed 01/26/2013 12:00 AM Decadron, Per 1 Mg [facility]# [address]-20 Reviewed 04/17/2013 12:00 AM THER/PROPH/DIAG INJ SC/IM Reviewed 04/17/2013 12:00 AM Decadron, Per 12 Mg [facility]# [address]-96 Reviewed 04/27/2013 12:00 AM THER/PROPH/DIAG INJ SC/IM Reviewed 04/27/2013 12:00 AM Decadron, Per 12 Mg [facility]# [address]-98 Reviewed 04/27/2013 12:00 AM Rocephin 1 gram [facility]#1125-5886-04 Reviewed 05/29/2013 12:00 AM COMPLETE CBC W/AUTO DIFF WBC Reviewed 05/29/2013 12:00 AM COMPREHEN METABOLIC PANEL Reviewed 05/29/2013 12:00 AM GLYCOSYLATED HEMOGLOBIN TEST Reviewed 05/29/2013 12:00 AM LIPID PANEL Reviewed 05/29/2013 12:00 AM ASSAY OF PSA TOTAL Reviewed 05/29/2013 12:00 AM ROUTINE VENIPUNCTURE Reviewed 05/29/2013 12:00 AM THER/PROPH/DIAG INJ SC/IM Reviewed 05/29/2013 12:00 AM Decadron, Per 12 Mg [facility]# [address]-65 Reviewed 02/16/2010 12:00 AM ROUTINE VENIPUNCTURE Reviewed 02/16/2010 12:00 AM METABOLIC PANEL TOTAL CA Reviewed 02/16/2010 12:00 AM GLYCOSYLATED HEMOGLOBIN TEST Reviewed 08/17/2013 12:00 AM THER/PROPH/DIAG INJ SC/IM Reviewed 08/17/2013 12:00 AM Decadron, Per 1 Mg [facility]# [address]-05 Reviewed 08/17/2013 12:00 AM Rocephin 1 gram [facility]#1878-3988-61 Reviewed 09/07/2013 12:00 AM THER/PROPH/DIAG INJ SC/IM Reviewed 09/07/2013 12:00 AM Decadron, Per 1 Mg [facility]# [address]-94 Reviewed 09/29/2013 12:00 AM THER/PROPH/DIAG INJ SC/IM Reviewed 09/29/2013 12:00 AM Decadron, Per 1 Mg [facility]# [address]-15 Reviewed 09/29/2013 12:00 AM Rocephin 1 gram [facility]#8435-8914-42 Reviewed 12/28/2013 12:00 AM THER/PROPH/DIAG INJ SC/IM Reviewed 12/28/2013 12:00 AM Decadron, Per 1 Mg [facility]# [address]-28 Reviewed 02/17/2014 12:00 AM IMMUNIZATION ADMIN Reviewed 02/17/2014 12:00 AM THER/PROPH/DIAG INJ SC/IM Reviewed 02/17/2014 12:00 AM Decadron, Per 1 Mg [facility]# [address]-52 Reviewed 02/17/2014 12:00 AM Depo-Medrol, Per 80 Mg [facility]#0171-9142-53 Reviewed 02/17/2014 12:00 AM Rocephin 1 gram [facility]#9573-[address]-46 Reviewed 04/06/2014 12:00 AM THER/PROPH/DIAG INJ SC/IM Reviewed 04/06/2014 12:00 AM Rocephin 1 gram [facility]#7673-6407-93 Reviewed 05/03/2014 12:00 AM THER/PROPH/DIAG INJ SC/IM Reviewed 05/03/2014 12:00 AM Decadron, Per 1 Mg [facility]# [address]-85 Reviewed 05/03/2014 12:00 AM Rocephin 1 gram [facility]#8408-2413-75 Reviewed 05/31/2014 12:00 AM THER/PROPH/DIAG INJ SC/IM Reviewed 05/31/2014 12:00 AM Decadron, Per 1 Mg [facility]# [address]-08 Reviewed Results Summary Data and Description Results [...] BILI 0.80 mg/dLCALCIUM 9.60 mg/dLeGFR >60 mL/min/1.73 [id number] 132.0 mg/dLCHOLESTEROL 109.0 mg/ dLHDL 32.0 mg/dLLDL [...] [employer] MSD Pneumovax 23 [id number] Intramuscular Left Deltoid 02/08/2012 06/17/2009 999 Influenza [...] Bilateral Cerumen Impaction Jul 15 2015 11:35AM Payers Insurance Name Company Name Plan Name Plan Number Policy Number Policy Group Number Start Date Medicare Part A Medicare RHC [id number] N/A [employer] - [place] State [place] [employer] [place] [id number] N/A Medicare Part A Medicare - Lab/Xray [id number] N/A [place] [employer] [place] Prog [id number] N/A Medicare Part B Medicare Secondary [id number] Sunday, May 02, 2010 Medicare Part A Medicare Part A [id number] N/A History of Encounters Visit Date Visit Type Provider 07/14/2015 Office visit ADRYAN CARLISLE 06/16/2015 Office [...] visit ADRYAN CARLISLE 09/29/2013 Office visit ADRYAN CARLISLE 09/07/2013 Office visit ADRYAN CARLISLE 08/17/2013 Office visit ADRYAN CARLISLE 05/29/2013 Office visit ADRYAN CARLISLE 04/27/2013 Office visit ADRYAN GUTIÉRREZ PA 04/17/2013 Office visit ADRYAN CARLISLE 03/30/2013 Office visit ADRYAN CARLISLE 01/26/2013 Office visit ADRYAN CARLISLE 12/01/2012 Office visit ADRYAN CARLISLE 06/23/2012 Office visit ADRYAN CARLISLE 05/19/2012 Office visit ADRYAN CARLISLE 02/08/2012 Office visit ADRYAN CARLISLE 01/08/2012 Office visit ADRYAN GUTIÉRREZ PA 12/11/2011 [...]
--- OUTSIDE RECORDS SUMMARY | 2018-05-04 07:54 | XMS REPORT ---
Author Author [facility] Organization [facility] Address [address] [place], [place] [id number] Care Team Providers Care Clinical Laboratory Technologist Name Role Phone PCP Unavailable Allergies and Adverse Reactions Name Reaction Notes NO KNOWN DRUG ALLERGIES Plan of Treatment Planned Activity Comments Planned Date Planned Time Plan/Goal GLYCOSYLATED HEMOGLOBIN TEST 12/08/2013 12:00 AM Medications Active Name Start Date Estimated Completion Date SIG Comments Humulin 70/30 subcutaneous suspension 100 unit/mL (70-30) 03/09/2013 50 UNITS TWICE DAILY hydrocodone-acetaminophen Oral Tablet 7.5-500 mg 03/09/2013 take 1 tablet by oral route every 4-6 hours as needed for pain simvastatin Oral tablet 20 mg 03/09/2013 take 1 tablet (20 mg) by oral route once daily in the evening Lexapro oral tablet 10 mg 03/09/2013 take 1 tablet (10 mg) by oral route once daily Phenergan-Codeine Oral Syrup 6.25-10 mg/5 mL 04/20/2013 take 5 milliliters by oral route 4 times a day nitroglycerin sublingual tablet, sublingual 0.4 mg 05/27/2013 place 1 tablet (0.4 mg) by sublingual route PRN Patanol ophthalmic drops 0.1 % 11/01/2013 instill 1 drop into affected eye( s) by ophthalmic route 2 times per day at an interval of 6 to 8 hours Flonase nasal spray,suspension 50 mcg/actuation 12/15/2013 inhale 1 spray by nasal route 2 times a day Tessalon Perles oral capsule 100 mg 12/30/2013 take 1 capsule (100 mg) by oral route every 4 hours as needed benazepril oral tablet 5 mg 01/14/2014 TAKE 1 TABLET (5 MG) BY ORAL ROUTE ONCE DAILY Xanax Oral Tablet 0.5 mg 03/01/2014 08/28/2014 take 1 tablet by oral route 3 times a day for 30 days simvastatin oral tablet 20 mg 03/24/2014 TAKE ONE TABLET BY MOUTH ONCE DAILY IN THE THE EVENING escitalopram oxalate oral tablet 10 mg 03/24/2014 TAKE ONE TABLET BY MOUTH DAILY Percocet oral tablet 7.5-325 mg 04/11/2014 take 1 tablet by oral route every 6 hours as needed albuterol sulfate inhalation solution for nebulization 2.5 mg /3 mL (0.083 %) 04/11/2014 used in Small Volume Nebulizer QID PRN Protonix oral tablet,delayed release (DR/EC) 40 mg take 1 tablet (40 mg ) by oral route once daily Levaquin oral tablet 500 mg 06/11/2014 take 1 tablet (500 mg) by oral route once daily Spiriva with HandiHaler inhalation capsule, w/inhalation device 18 mcg 2014 inhale 1 capsule (18 mcg) by inhalation route once daily escitalopram oxalate oral tablet 10 mg 06/23/2014 TAKE ONE TABLET BY MOUTH DAILY BD Insulin Syringe DIRECTED 06/30/2014 0.5ml 31Guage 8mm 07/17 [facility] Humulin 70/30 subcutaneous suspension 100 unit/mL (70-30) 07/05/2014 INJECT 60 UNITS TWICE DAILY Flomax Oral capsule,extended release 24hr 0.4 mg 07/15/2014 take 2 capsules (0.8 mg) by oral route once daily 1/2 hour following the same meal each day Klor-Con 10 Oral Tablet Sustained Release mEq 07/15/2014 07/10/2015 take 1 tablet by oral route daily for 30 days Name Start Date Expiration Date SIG Comments Norvasc Oral Tablet 5 mg 03/17/2009 06/15/2009 1QD - TAKE ONE TABLET BY MOUTH EVERY DAY Zovirax Oral Tablet 800 mg 03/17/2009 03/25/2009 [id number] - TAKE ONE TABLET BY MOUTH EVERY 4 HOURS WHILE AWAKE Zantac Oral Tablet 150 mg 03/18/2009 07/16/2009 take 1 tablet (150 mg) by oral route 2 times per day for 30 days Darvocet-N 100 Oral Tablet 100-650 mg 12/06/2009 01/05/2010 take 1 tablet by oral route every 4-6 hours as needed for pain for 30 days indomethacin Oral Capsule 50 mg 01/18/2011 take 1 capsule (50 mg) by oral route 3 times per day with food Flagyl Oral Tablet 500 mg 02/16/2011 take 1 tablet by oral route 3 times a day Cipro Oral Tablet 500 mg 02/16/2011 take 1 tablet (500 mg) by oral route 2 times per day Plavix Oral Tablet 75 mg 05/18/2011 09/15/2011 take 1 tablet (75 mg) by oral route once daily Levaquin Oral Tablet 750 mg 07/24/2011 08/03/2011 take 1 tablet (750 mg) by oral route once daily for 10 days Zocor Oral Tablet 20 mg 10/01/2011 12/30/2011 take 1 tablet (20 mg) by oral route once daily in the evening Percocet Oral tablet 7.5-325 mg 10/16/2011 take 1 tablet by oral route every 4 hours as needed for pain Bactrim DS Oral Tablet 800-160 mg 03/14/2012 03/14/2012 take 1 tablet by oral route 2 times a day Zithromax Z-Heri Oral tablet 250 mg 03/14/2012 03/24/2012 take 2 tablets (500 mg) by oral route once daily for 1 day then 1 tablet (250 mg) by oral route once daily for 4 days Cipro Oral Tablet 500 mg 05/19/2012 take 1 tablet (500 mg) by oral route 2 times per day benazepril Oral tablet 5 mg 08/26/2012 02/22/2013 take 1 tablet (5 mg) by oral route once daily for 30 days Bactrim DS Oral tablet 800-160 mg 12/01/2012 12/11/2012 take 1 tablet by oral route 2 times a day for 10 days Humulin 70/30 Subcutaneous Suspension 100 unit/mL (70-30) 01/15/20132013 INJECT 50 UNITS SUBCUTANEOUSLY TWICE DAILY Cipro Oral Tablet 500 mg 01/26/2013 take 1 tablet (500 mg) by oral route 2 times per day doxycycline hyclate oral capsule 100 mg 02/13/2013 02/23/2013 take 1 capsule (100 mg) by oral route every 12 hours for 10 days Vinnie-Tab oral tablet,delayed release (DR/EC) 500 mg 02/27/2013 03/09/2013 take 1 tablet by oral route 2 times a day for 10 days albuterol sulfate Inhalation HFA Aerosol Inhaler 90 mcg/actuation 03/09/201307/07/2013 inhale 2 puffs by inhalation route every 6 hours as needed for 30 days Lomotil Oral tablet 2.5-0.025 mg 03/09/2013 take 2 tablets (5 mg) by oral route 4 times per day as needed for radiation diarrhea Levaquin oral tablet 500 mg 04/20/2013 04/30/2013 take 1 tablet (500 mg) by oral route once daily for 10 days Symbicort inhalation HFA aerosol inhaler 160-4.5 mcg/actuation 04/27/20132013 inhale 2 puffs by inhalation route 2 times per day in the morning and evening for 10 days Levaquin oral tablet 500 mg 08/17/2013 08/27/2013 take 1 tablet (500 mg) by oral route once daily for 10 days Levaquin oral tablet 500 mg 09/09/2013 09/19/2013 take 1 tablet (500 mg) by oral route once daily for 10 days Zithromax Z-Heri Oral Tablet 250 mg 09/30/2013 take 2 tablets (500 mg) by oral route once daily for 1 day then 1 tablet (250 mg) by oral route once daily for 4 days Zithromax Z-Heri Oral Tablet 250 mg 12/30/2013 take 2 tablets (500 mg) by oral route once daily for 1 day then 1 tablet (250 mg) by oral route once daily for 4 days Zithromax Z-Heri Oral Tablet 250 mg 04/11/2014 take 2 tablets (500 mg) by oral route once daily for 1 day then 1 tablet (250 mg) by oral route once daily for 4 days Discontinued Name Start Date Discontinued Date SIG Comments Percocet Oral Tablet 5-325 mg 02/28/2009 12/06/2009 take 1 tablet by oral [...] HC BMI BSA BMI Percentile O2 Sat(%) 08/09/2014 10:53:00 AM 100 mmHg 70 mmHg [...] AM LIPID PANEL Returned 04/03/2011 12:00 AM MICROALBUMIN SEMIQUANT Returned 04/03/2011 12:00 AM THER/PROPH/DIAG INJ SC/IM Reviewed 07/11/2011 12:00 AM THER/PROPH/DIAG INJ SC/IM Reviewed 10/09/2011 12:00 AM ROUTINE VENIPUNCTURE Reviewed [...] 01/08/2012 12:00 AM THER/PROPH/DIAG INJ SC/IM Reviewed 02/08/2012 12:00 AM PNEUMOCOCCAL VACC 23 EVY IM Reviewed 05/19/2012 12:00 AM THER/PROPH/DIAG INJ SC/IM Reviewed 06/23/2012 12:00 AM THER/PROPH/DIAG INJ SC/IM Reviewed 12/01/2012 12:00 AM THER/PROPH/DIAG INJ SC/IM Reviewed 01/26/2013 12:00 AM THER/PROPH/DIAG INJ SC/IM Reviewed 04/17/2013 12:00 AM THER/PROPH/DIAG INJ SC/IM Reviewed 04/27/2013 12:00 AM THER/PROPH/DIAG INJ SC/IM Reviewed 05/29/2013 12:00 AM COMPLETE CBC W/AUTO DIFF WBC Reviewed 05/29/2013 12:00 AM COMPREHEN METABOLIC PANEL Reviewed 05/29/2013 12:00 AM GLYCOSYLATED HEMOGLOBIN TEST Reviewed 05/29/2013 12:00 AM LIPID PANEL Reviewed 05/29/2013 12:00 AM ASSAY OF PSA TOTAL Reviewed 05/29/2013 12:00 AM ROUTINE VENIPUNCTURE Reviewed 05/29/2013 12:00 AM THER/PROPH/DIAG INJ SC/IM Reviewed 02/16/2010 12:00 AM ROUTINE VENIPUNCTURE Reviewed 02/16/2010 12:00 AM METABOLIC PANEL TOTAL CA Reviewed 02/16/2010 12:00 AM GLYCOSYLATED HEMOGLOBIN TEST Reviewed 08/17/2013 12:00 AM THER/PROPH/DIAG INJ SC/IM Reviewed 09/07/2013 12:00 AM THER/PROPH/DIAG INJ SC/IM Reviewed 09/29/2013 12:00 AM THER/PROPH/DIAG INJ SC/IM Reviewed 12/28/2013 12:00 AM THER/PROPH/DIAG INJ SC/IM Reviewed 02/17/2014 12:00 AM IMMUNIZATION ADMIN Reviewed 02/17/2014 12:00 AM THER/PROPH/DIAG INJ SC/IM Reviewed 04/06/2014 12:00 AM THER/PROPH/DIAG INJ SC/IM Reviewed 05/03/2014 12:00 AM THER/PROPH/DIAG INJ SC/IM Reviewed 05/31/2014 12:00 AM THER/PROPH/DIAG INJ SC/IM Reviewed Results Summary Data and Description Results [...] BILI 0.80 mg/dLCALCIUM 9.60 mg/dLeGFR >60 mL/min/1.73 [id number] 132.0 mg/dLCHOLESTEROL 109.0 mg/ dLHDL 32.0 mg/dLLDL [...] % 05/29/2013 3:39 PM HGB A1C 6.90 %WBC 4.6 RBC 5.16 HGB 15.70 g/dLHCT 46.90 %MCV 91.0 fLMCH 30.40 pgMCHC 33.50 g/dLRDW CV 14.0 %MPV 10.80 fLPLT 208 %NEUT 63.0 %% LYMP 23.80 %%MONO 10.0 %%EOS 2.80 %%BASO 0.40 %#NEUT 2.91 #LYMP 1.10 #MONO 0.46 #EOS 0.13 #BASO 0.02 GLUCOSE 99.0 mg/dLSODIUM 139.0 mmol/LPOTASSIUM 4.50 mmol/ LCHLORIDE 105.0 mmol/LCO2 25.0 mmol/LBUN 20.0 mg/dLCREATININE 1.0 mg/dLSGOT/AST 20.0 IU/LSGPT/ALT 19.0 IU/LALK PHOS 106.0 IU/LTOTAL PROTEIN 6.10 g/dLALBUMIN 3.90 g/dLTOTAL BILI 0.70 mg/dLCALCIUM 8.60 mg/dLeGFR 60 PSA TOTAL 0.620 ng/ mLTRIGLYCERIDES 87.0 mg/dLCHOLESTEROL 107.0 mg/dLHDL 36.0 mg/dLLDL (CALC) 54.0 mg/dL History Of Immunizations Name Date Admin Mfg Name Mfg Code Trade Name Lot# Route Inj Vis Given Vis Pub CVX Pneumococcal 02/08/2012 [employer] MSD Pneumovax 23 [id number] Intramuscular Left Deltoid 02/08/2012 06/17/2009 999 Influenza [...] Ear pain, left Aug 09 2014 10:54AM Payers Insurance Name Company Name Plan Name Plan Number Policy Number Policy Group Number Start Date Medicare Part A Medicare Part A [id number] N/A [employer] - [facility] [place] [employer] - [facility] [place] [id number] N/A [place] [employer] [place] [employer] [place] Pro[place] [id number] N/A Medicare Part B Medicare Secondary [id number] Sunday, 2010 History of Encounters Visit Date Visit Type Provider 08/09/2014 Office visit ADRYAN CARLISLE 06/16/2014 Office [...] visit ADRYAN GUTIÉRREZ PA 03/30/2013 Office visit ADRYNA GUTIÉRREZ PA 01/26/2013 Office visit ADRYAN GUTIÉRREZ [...] visit ADRYAN GUTIÉRREZ PA 07/11/2011 Office visit ARDYAN GUTIÉRREZ PA 06/22/2011 Office visit ADRYAN GUTIÉRREZ [...]
--- OUTSIDE RECORDS SUMMARY | 2018-05-04 07:56 | XMS REPORT ---
Author Author Adryan Burnham [facility] Address [address] [place], [place] [address] Care Team Providers Care Fire Watchman Name Role Phone Adryan Burnham PCP Unavailable Allergies and Adverse Reactions Name [...] Syringe DIRECTED 06/30/2014 0.5ml 31Guage 8mm 07/17 [facility] simvastatin 20 mg oral tablet 09/24/2014 [...] an interval of 6 to 8 hours [place] 10-325 mg oral tablet 03/10/2015 12/10/2015 take [...] HC BMI BSA BMI Percentile O2 Sat(%) 01/09/2016 1:55:00 PM 118 mmHg 64 mmHg 66 bpm 20 rpm 96.6 F 259 lbs 72 in 35.13 kg/m2 2.44 m2 96 % 01/06/2016 11:43:00 AM 125 mmHg 78 mmHg 60 bpm 16 rpm 97.8 F 257 lbs 72 in 34.8551 kg/m 2.4335 m 98 % 12/09/2015 10:26:00 AM [...] 12:00 AM Decadron, Per 1 Mg [facility]# [address]-96 Reviewed 03/25/2015 12:00 AM Depo-Medrol, Per 80 Mg [facility]#3260-9905-40 Reviewed 03/25/2015 12:00 AM Rocephin 1 gram [facility]#1863-0211-44 Reviewed 06/16/2015 12:00 AM Decadron, Per 1 Mg [facility]# [address]-84 Reviewed 06/16/2015 12:00 AM Rocephin 1 gram [facility]#8436-3340-17 Reviewed 07/14/2015 12:00 AM Removal impacted cerumen [...] SC/IM Reviewed 04/03/2011 12:00 AM Decadron Inj.1mg-(St.Tr) [facility] #[id number] Reviewed 04/03/2011 12:00 AM Depo-Medrol 80 Mg Im/St Tr [facility] [id number] Reviewed 10/13/2015 12:00 AM Decadron, Per 1 Mg [facility]# [address]-36 Reviewed 10/13/2015 12:00 AM Rocephin 1 gram [facility]#7015-2694-82 Reviewed 07/11/2011 12:00 AM THER/PROPH/DIAG INJ SC/IM Reviewed 07/11/2011 12:00 AM Decadron Inj.1mg-(St.Tr) [facility] #[id number] Reviewed 07/11/2011 12:00 AM Depo-Medrol 80 Mg Im/ Tr [facility] [id number] Reviewed 07/11/2011 12:00 AM Rocephin, Per 250MG - 1 Gram Vial [facility] 7313-654686-Qz Paul Reviewed 10/09/2011 12:00 AM ROUTINE VENIPUNCTURE [...] 01/08/2012 12:00 AM Rocephin 1 gram [facility]#0481-5845-36 Reviewed 02/08/2012 12:00 AM Flu Injection 3 Years And Above [facility]# [address]-50 R[facility] Reviewed 02/08/2012 12:00 AM PNEUMOCOCCAL VACC 23 EVY IM Reviewed 05/19/2012 12:00 AM THER/PROPH/DIAG INJ SC/IM Reviewed 05/19/2012 12:00 AM Decadron, Per 1 Mg [facility]# [address]-25 Reviewed 05/19/2012 12:00 AM Rocephin 1 gram [facility]#8303-9950-53 Reviewed 06/23/2012 12:00 AM THER/PROPH/DIAG INJ SC/IM Reviewed 06/23/2012 12:00 AM Decadron, Per 1 Mg [facility]# [address]-35 Reviewed 06/23/2012 12:00 AM Depo-Medrol, Per 80 Mg [facility]#0424-5434-16 Reviewed 12/01/2012 12:00 AM THER/PROPH/DIAG INJ SC/IM Reviewed 12/01/2012 12:00 AM Decadron, Per 1 Mg [facility]# [address]-72 Reviewed 12/01/2012 12:00 AM Depo-Medrol, Per 80 Mg [facility]#5805-8546-74 Reviewed 07/11/2009 12:00 AM Toradol 15 Mg,[facility]#[id number] Reviewed 01/26/2013 12:00 AM THER/PROPH/DIAG INJ SC/IM Reviewed 01/26/2013 12:00 AM Decadron, Per 1 Mg [facility]# [address]-89 Reviewed 04/17/2013 12:00 AM THER/PROPH/DIAG INJ SC/IM Reviewed 04/17/2013 12:00 AM Decadron, Per 12 Mg [facility]# [address]-93 Reviewed 04/27/2013 12:00 AM THER/PROPH/DIAG INJ SC/IM Reviewed 04/27/2013 12:00 AM Decadron, Per 12 Mg [facility]# [address]-49 Reviewed 04/27/2013 12:00 AM Rocephin 1 gram [facility]#3062-9688-58 Reviewed 05/29/2013 12:00 AM COMPLETE CBC W/AUTO DIFF WBC Reviewed 05/29/2013 12:00 AM COMPREHEN METABOLIC PANEL Reviewed 05/29/2013 12:00 AM GLYCOSYLATED HEMOGLOBIN TEST Reviewed 05/29/2013 12:00 AM LIPID PANEL Reviewed 05/29/2013 12:00 AM ASSAY OF PSA TOTAL Reviewed 05/29/2013 12:00 AM ROUTINE VENIPUNCTURE Reviewed 05/29/2013 12:00 AM THER/PROPH/DIAG INJ SC/IM Reviewed 05/29/2013 12:00 AM Decadron, Per 12 Mg [facility]# [address]-08 Reviewed 02/16/2010 12:00 AM ROUTINE VENIPUNCTURE Reviewed 02/16/2010 12:00 AM METABOLIC PANEL TOTAL CA Reviewed 02/16/2010 12:00 AM GLYCOSYLATED HEMOGLOBIN TEST Reviewed 08/17/2013 12:00 AM THER/PROPH/DIAG INJ SC/IM Reviewed 08/17/2013 12:00 AM Decadron, Per 1 Mg [facility]# [address]-71 Reviewed 08/17/2013 12:00 AM Rocephin 1 gram [facility]#3724-7933-00 Reviewed 09/07/2013 12:00 AM THER/PROPH/DIAG INJ SC/IM Reviewed 09/07/2013 12:00 AM Decadron, Per 1 Mg [facility]# [address]-94 Reviewed 09/29/2013 12:00 AM THER/PROPH/DIAG INJ SC/IM Reviewed 09/29/2013 12:00 AM Decadron, Per 1 Mg [facility]# [address]-06 Reviewed 09/29/2013 12:00 AM Rocephin 1 gram [facility]#8504-4561-65 Reviewed 12/28/2013 12:00 AM THER/PROPH/DIAG INJ SC/IM Reviewed 12/28/2013 12:00 AM Decadron, Per 1 Mg [place]# [address]-98 Reviewed 02/17/2014 12:00 AM IMMUNIZATION ADMIN Reviewed 02/17/2014 12:00 AM THER/PROPH/DIAG INJ SC/IM Reviewed 02/17/2014 12:00 AM Decadron, Per 1 Mg ND# [address]-08 Reviewed 02/17/2014 12:00 AM Depo-Medrol, Per 80 Mg [facility]#0383-6718-07 Reviewed 02/17/2014 12:00 AM Rocephin 1 gram [place]#7308-0415-51 Reviewed 04/06/2014 12:00 AM THER/PROPH/DIAG INJ SC/IM Reviewed 04/06/2014 12:00 AM Rocephin 1 gram [place]#2564-8633-96 Reviewed 05/03/2014 12:00 AM THER/PROPH/DIAG INJ SC/IM Reviewed 05/03/2014 12:00 AM Decadron, Per 1 Mg [facility]# [address]-65 Reviewed 05/03/2014 12:00 AM Rocephin 1 gram [facility]#5832-0752-87 Reviewed 05/31/2014 12:00 AM THER/PROPH/DIAG INJ SC/IM Reviewed 05/31/2014 12:00 AM Decadron, Per 1 Mg [facility]# [address]-85 Reviewed Results Summary Data and Description Results [...] Vis Given Vis Pub CVX X 02/08/2012 [employer] MSD Pneumovax 23 [id number] Intramuscular Left Deltoid 02/08/2012 06/17/2009 999 Influenza [...] Feb 2011 9:57AM Diabetes Mellitus, Type II Feb 2011 9:57AM Tobacco Abuse b 2011 9:57AM Chronic Obstructive Pulmonary Disease Feb 2011 9:57AM Coronary Artery Disease b 2011 [...] 1:55PM Rectal bleeding Jan 09 2016 1:55PM Payers Insurance Name Company Name Plan Name Plan Number Policy Number Policy Group Number Start Date Medicare Part A Medicare [facility] [id number] N/A [facility] - [place] State Plan [facility] State Plan [id number] N/A Medicare Part A Medicare - Lab/Xray [id number] N/A [place] [employer] [place] [employer] [id number] N/A Medicare Part B Medicare Secondary [id number] Sunday, May 02, 2010 Medicare Part A Medicare Part A [id number] N/A [facility] State Plan [facility] State Plan [id number] N/A History of Encounters Visit Date Visit Type Provider 01/09/2016 Office visit Adryan Burnham MD 01/06/2016 [...] ADRYAN GUTIÉRREZ PA 09/29/2013 Office visit ADRYAN CARLISLE 09/07/2013 Office visit ADRYAN GUTIÉRREZ PA 08/17/2013 [...]
--- OUTSIDE RECORDS SUMMARY | 2018-05-04 07:58 | XMS REPORT ---
Author Author ADRYAN GUTIÉRREZ [facility] Address [address] [place], [place] [address] Care Team Providers Care Binding Nicker Name Role Phone ADRYAN GUTIÉRREZ PCP Unavailable ADRYAN GUTIÉRREZ PreferredProvider Unavailable Allergies and Adverse Reactions Name Reaction Notes NO KNOWN DRUG ALLERGIES Plan of Treatment Planned Activity Comments Planned Date Planned Time Plan/Goal Injection,Subcutaneous/Intramuscul, [facility] Medicare 09/28/2016 12:00 AM Hgb A1c 12/08/2013 12:00 AM [...] Syringe DIRECTED 06/30/2014 0.5ml 31Guage 8mm 07/17 [facility] simvastatin 20 mg oral tablet [...] by oral route 3 times per day Levaquin 500 mg oral tablet 09/28/2016 10/08/2016 take 1 tablet (500 mg) by oral route once daily for 10 days Name Start Date Expiration Date SIG [...] (18 mcg) by inhalation route once daily [place] 10-325 mg oral tablet 03/10/2015 12/10/2015 take [...] HC BMI BSA BMI Percentile O2 Sat(%) 10/01/2016 10:07:00 AM 92 mmHg 62 mmHg [...] 12:00 AM Decadron, Per 1 Mg [facility]# [address]-14 Reviewed 03/25/2015 12:00 AM Depo-Medrol, Per 80 Mg [facility]#4583-4704-86 Reviewed 03/25/2015 12:00 AM Rocephin 1 gram [facility]#7219-1490-36 Reviewed 06/16/2015 12:00 AM Decadron, Per 1 Mg [facility]# [address]-18 Reviewed 06/16/2015 12:00 AM Rocephin 1 gram [facility]#2587-8382-81 Reviewed 07/14/2015 12:00 AM Removal impacted cerumen [...] SC/IM Reviewed 04/03/2011 12:00 AM Decadron Inj.1mg-(St.Tr) [facility] #[id number] Reviewed 04/03/2011 12:00 AM Depo-Medrol 80 Mg Im/St Tr [facility] 0009-940762 Reviewed 10/13/2015 12:00 AM Decadron, Per 1 Mg [facility]# [address]-28 Reviewed 10/13/2015 12:00 AM Rocephin 1 gram [facility]#3222[address]-97 Reviewed 07/11/2011 12:00 AM THER/PROPH/DIAG INJ SC/IM Reviewed 07/11/2011 12:00 AM Decadron Inj.1mg-(St.Tr) [facility] #[id number] Reviewed 07/11/2011 12:00 AM Depo-Medrol 80 Mg Im/St Tr [facility] 0009-961963 Reviewed 07/11/2011 12:00 AM Rocephin, Per 250MG - 1 Gram Vial [facility] 1899-855330-[place] Reviewed 04/01/2016 12:00 AM THERAPEUTIC PROPHYLACTIC/DX INJECTION SUBQ/IM Reviewed 04/01/2016 12:00 AM Decadron 8mg Injection, [facility] Medicare Reviewed 06/13/2016 12:00 AM THER/PROPH/DIAG INJ SC/IM Reviewed 06/13/2016 12:00 AM Decadron 8mg Injection, [facility] Medicare Reviewed 06/13/2016 12:00 AM Rocephin 1 gram Injection, [facility] Medicare Reviewed 10/09/2011 12:00 AM ROUTINE VENIPUNCTURE [...] 01/08/2012 12:00 AM Rocephin 1 gram [facility]#5711-9727-84 Reviewed 02/08/2012 12:00 AM Flu Injection 3 Years And Above [facility]# [address]-72 [facility] Reviewed 02/08/2012 12:00 AM PNEUMOCOCCAL VACC 23 EVY IM Reviewed 05/19/2012 12:00 AM THER/PROPH/DIAG INJ SC/IM Reviewed 05/19/2012 12:00 AM Decadron, Per 1 Mg [facility]# [address]-53 Reviewed 05/19/2012 12:00 AM Rocephin 1 gram [facility]#1260-1045-30 Reviewed 06/23/2012 12:00 AM THER/PROPH/DIAG INJ SC/IM Reviewed 06/23/2012 12:00 AM Decadron, Per 1 Mg [facility]# [address]-21 Reviewed 06/23/2012 12:00 AM Depo-Medrol, Per 80 Mg [facility]#4696-4388-01 Reviewed 12/01/2012 12:00 AM THER/PROPH/DIAG INJ SC/IM Reviewed 12/01/2012 12:00 AM Decadron, Per 1 Mg [facility]# [address]-85 Reviewed 12/01/2012 12:00 AM Depo-Medrol, Per 80 Mg [facility]#2557-5937-34 Reviewed 07/11/2009 12:00 AM Toradol 15 Mg,[facility]#[id number] Reviewed 01/26/2013 12:00 AM THER/PROPH/DIAG INJ SC/IM Reviewed 01/26/2013 12:00 AM Decadron, Per 1 Mg [facility]# [address]-13 Reviewed 04/17/2013 12:00 AM THER/PROPH/DIAG INJ SC/IM Reviewed 04/17/2013 12:00 AM Decadron, Per 12 Mg [facility]# [address]-17 Reviewed 04/27/2013 12:00 AM THER/PROPH/DIAG INJ SC/IM Reviewed 04/27/2013 12:00 AM Decadron, Per 12 Mg [facility]# [address]-95 Reviewed 04/27/2013 12:00 AM Rocephin 1 gram [facility]#5600-9188-19 Reviewed 05/29/2013 12:00 AM COMPLETE CBC W/AUTO DIFF WBC Reviewed 05/29/2013 12:00 AM COMPREHEN METABOLIC PANEL Reviewed 05/29/2013 12:00 AM GLYCOSYLATED HEMOGLOBIN TEST Reviewed 05/29/2013 12:00 AM LIPID PANEL Reviewed 05/29/2013 12:00 AM ASSAY OF PSA TOTAL Reviewed 05/29/2013 12:00 AM ROUTINE VENIPUNCTURE Reviewed 05/29/2013 12:00 AM THER/PROPH/DIAG INJ SC/IM Reviewed 05/29/2013 12:00 AM Decadron, Per 12 Mg [facility]# [address]-65 Reviewed 02/16/2010 12:00 AM ROUTINE VENIPUNCTURE Reviewed 02/16/2010 12:00 AM METABOLIC PANEL TOTAL CA Reviewed 02/16/2010 12:00 AM GLYCOSYLATED HEMOGLOBIN TEST Reviewed 08/17/2013 12:00 AM THER/PROPH/DIAG INJ SC/IM Reviewed 08/17/2013 12:00 AM Decadron, Per 1 Mg [facility]# [address]-96 Reviewed 08/17/2013 12:00 AM Rocephin 1 gram [place]#6141-5585-24 Reviewed 09/07/2013 12:00 AM THER/PROPH/DIAG INJ SC/IM Reviewed 09/07/2013 12:00 AM Decadron, Per 1 Mg [facility]# [address]-59 Reviewed 09/29/2013 12:00 AM THER/PROPH/DIAG INJ SC/IM Reviewed 09/29/2013 12:00 AM Decadron, Per 1 Mg [facility]# [address]-36 Reviewed 09/29/2013 12:00 AM Rocephin 1 gram [facility]#7974-5025-65 Reviewed 12/28/2013 12:00 AM THER/PROPH/DIAG INJ SC/IM Reviewed 12/28/2013 12:00 AM Decadron, Per 1 Mg [facility]# [address]-84 Reviewed 02/17/2014 12:00 AM IMMUNIZATION ADMIN Reviewed 02/17/2014 12:00 AM THER/PROPH/DIAG INJ SC/IM Reviewed 02/17/2014 12:00 AM Decadron, Per 1 Mg [facility]# [address]-81 Reviewed 02/17/2014 12:00 AM Depo-Medrol, Per 80 Mg [facility]#2195-0255-76 Reviewed 02/17/2014 12:00 AM Rocephin 1 gram [facility]#3336-3676-43 Reviewed 04/06/2014 12:00 AM THER/PROPH/DIAG INJ SC/IM Reviewed 04/06/2014 12:00 AM Rocephin 1 gram [place]#1654-7856-88 Reviewed 05/03/2014 12:00 AM THER/PROPH/DIAG INJ SC/IM Reviewed 05/03/2014 12:00 AM Decadron, Per 1 Mg [place]# [address]-70 Reviewed 05/03/2014 12:00 AM Rocephin 1 gram [facility]#3677-1012-06 Reviewed 05/31/2014 12:00 AM THER/PROPH/DIAG INJ SC/IM Reviewed 05/31/2014 12:00 AM Decadron, Per 1 Mg [facility]# [address]-95 Reviewed Results Summary Date and Description Results [...] [employer] 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 Oct 01 2016 10:07AM Payers Insurance Name Company Name Plan Name Plan Number Policy Number Policy Group Number Start Date Medicare RHC Medicare RHC [id number] N/A [employer] - R[place] - [place] State Plan [employer] - [facility] State [place] [id number] N/A Medicare Part A Medicare - Lab/Xray [id number] N/A [place] [employer] [place] [employer] [place] [id number] N/A Medicare Part B Medicare Secondary [id number] Sunday, May 02, 2010 Medicare Part A Medicare Part A [id number] N/A [employer] [place] State Plan [facility] State Plan [id number] N/A History of Encounters Visit Date Visit Type Provider 10/01/2016 Office visit ADRYAN CARLISLE 09/28/2016 Office visit ADRYAN CARLISLE 09/27/2016 Office visit ADRYAN CARLISLE 06/18/2016 Office visit ADRYAN CARLISLE 06/13/2016 Office visit ADRYAN CARLISLE 05/04/2016 Office visit ADRYAN CARLISLE 04/01/2016 Office visit ADRYAN CARLISLE 01/30/2016 Office visit Adryan Burnham MD 01/17/2016 [facility] Adryan Burnham MD 01/09/2016 Office visit Adryan Burnham MD 01/06/2016 Office visit ADRYAN CARLISLE 12/09/2015 Office visit ADRYAN CARLISLE 10/13/2015 Office visit ADRYAN CARLISLE 07/14/2015 Office visit ADRYAN CARLISLE 06/16/2015 Office visit ADRYAN CARLISLE 03/10/2015 Office visit ADRYAN CARLISLE 11/26/2014 Office visit ADRYAN CARLISLE 08/09/2014 Office visit ADRYAN CARLISLE 06/16/2014 Office visit ADRYAN GUTIÉRREZ PA 06/11/2014 [...] Adryan Gutiérrez PA-C 05/15/2010 Office visit Adryan HOFFMANC 02/16/2010 Office visit Adryan HOFFMANC 10/14/2009 Office visit Adryan HOFFMANC 07/11/2009 Office visit Adryan HOFFMANC 05/20/2009 Laboratory Adryan HOFFMANC 02/28/2009 Office visit Adryan HOFFMANC 02/22/2009 Office visit Adryan HOFFMANC 02/17/2009 Laboratory Geo Wallace MD 12/17/2008 Laboratory Adryan Gutiérrez PA-C
--- OUTSIDE RECORDS SUMMARY | 2018-05-04 08:00 | XMS REPORT ---
Author Author ADRYAN GUTIÉRREZ [facility] Address [address] [place], [place] [address] Care Team Providers Care Gaming Cashier Name Role Phone ADRYAN GUTIÉRREZ PCP Unavailable [...] used in Small Volume Nebulizer QID PRN BD Insulin Syringe DIRECTED 06/30/2014 0.5ml 31Guage 8mm 07/17 [facility] simvastatin 20 mg oral tablet [...] inhalation route every 6 hours as needed [place] 70/30 100 unit/mL (70-30) subcutaneous suspension 04/09/2016 INJECT 70 UNITS TWICE DAILY - E11.65 hydroxyzine HCl 25 mg oral tablet 05/04/2016 take 2 tablet at HS for itching benazepril 5 mg oral tablet 05/16/2016 TAKE 1 TABLET (5 MG) BY ORAL ROUTE ONCE DAILY Lexapro 20 mg oral tablet 07/02/2016 take [...] by oral route 3 times per day escitalopram oxalate 10 mg oral tablet 11/07/2016 05/01/2018 TAKE 1 TABLET (10 MG) BY ORAL ROUTE ONCE DAILY tamsulosin 0.4 mg oral capsule,extended release 24hr 11/07/2016 05/01/2018 TAKE 2 CAPSULES (0.8 MG) BY ORAL ROUTE ONCE DAILY 1/2 HOUR FOLLOWING THE SAME MEAL EACH DAY promethazine-codeine 6.25-10 mg/5 mL oral syrup 11/13/2016 take 5 milliliters by oral route every [...] (18 mcg) by inhalation route once daily [place] 10-325 mg oral tablet 03/10/2015 12/10/2015 take [...] HC BMI BSA BMI Percentile O2 Sat(%) 11/09/2016 6:33:00 AM 142 mmHg 84 mmHg [...] bpm 229 lbs 72 in 31.0577 kg/m 2.30 m2 97 % 07/17/2011 10:41:00 AM 85 mmHg 58 mmHg 77 bpm 20 rpm 96.8 F 229 lbs 72 in 31.06 kg/m2 2.2971 m 97 % 07/11/2011 9:33:00 AM 108 mmHg 62 mmHg 82 bpm 229 lbs 72 in 31.0577 kg/m 2.30 m2 97 % 06/22/2011 10:38:00 AM 96 mmHg 64 mmHg 80 bpm 229 lbs 72 in 31.06 kg/m2 2.2971 m 96 % 05/15/2011 10:21:00 AM 110 mmHg 68 mmHg 78 bpm 225 lbs 72 in 30.5152 kg/m 2.28 m2 98 % 04/10/2011 9:55:00 AM 118 mmHg 72 mmHg 68 bpm 224 lbs 72 in 30.38 kg/m2 2.2719 m 04/03/2011 8:35:00 AM 118 mmHg 72 mmHg 80 bpm 224 lbs 72 in 30.3795 kg/m 2.27 m2 02/16/2011 9:22:00 AM 108 mmHg 66 mmHg 71 bpm 224 lbs 72 in 30.38 kg/m2 2.2719 m 97 % 01/18/2011 9:52:00 AM 124 mmHg 68 mmHg 60 bpm 224 lbs 72 in 30.3795 kg/m 2.27 m2 96 % 08/07/2010 9:26:00 AM [...] 03/25/2015 12:00 AM Decadron, Per 1 Mg [facility]# [address]-80 Reviewed 03/25/2015 12:00 AM Depo-Medrol, Per 80 Mg [facility]#9014-0485-65 Reviewed 03/25/2015 12:00 AM Rocephin 1 gram [facility]#8474-1670-20 Reviewed 06/16/2015 12:00 AM Decadron, Per 1 Mg [facility]# [address]-51 Reviewed 06/16/2015 12:00 AM Rocephin 1 gram [facility]#5352-8259-66 Reviewed 07/14/2015 12:00 AM Removal impacted cerumen [...] INJ SC/IM Reviewed 04/03/2011 12:00 AM Decadron Inj.1mg-([facility]) [facility] #[id number] Reviewed 04/03/2011 12:00 AM Depo-Medrol 80 Mg Im/ Tr [facility] [id number] Reviewed 10/13/2015 12:00 AM Decadron, Per 1 Mg [facility]# [address]-43 Reviewed 10/13/2015 12:00 AM Rocephin 1 gram [facility]#3863-0644-05 Reviewed 07/11/2011 12:00 AM THER/PROPH/DIAG INJ SC/IM Reviewed 07/11/2011 12:00 AM Decadron Inj.1mg-([facility]) [facility] #[id number] Reviewed 07/11/2011 12:00 AM Depo-Medrol 80 Mg Im/[facility] [id number] Reviewed 07/11/2011 12:00 AM Rocephin, Per 250MG - 1 Gram Vial [facility] 6304-774537-Hh [facility] Reviewed 04/01/2016 12:00 AM THERAPEUTIC PROPHYLACTIC/DX INJECTION SUBQ/IM Reviewed 04/01/2016 12:00 AM Decadron 8mg Injection, [facility] Medicare Reviewed 06/13/2016 12:00 AM THER/PROPH/DIAG INJ SC/IM Reviewed 06/13/2016 12:00 AM Decadron 8mg Injection, [facility] Medicare Reviewed 06/13/2016 12:00 AM Rocephin 1 gram Injection, [facility] Medicare Reviewed 10/09/2011 12:00 AM ROUTINE [...] Reviewed 01/08/2012 12:00 AM Rocephin 1 gram [facility]#6088-6227-55 Reviewed 02/08/2012 12:00 AM Flu Injection 3 Years And Above [facility]# [address]-94 [facility] Reviewed 02/08/2012 12:00 AM PNEUMOCOCCAL VACC 23 EVY IM Reviewed 05/19/2012 12:00 AM THER/PROPH/DIAG INJ SC/IM Reviewed 05/19/2012 12:00 AM Decadron, Per 1 Mg [facility]# [address]-53 Reviewed 05/19/2012 12:00 AM Rocephin 1 gram [facility]#7441-8980-23 Reviewed 06/23/2012 12:00 AM THER/PROPH/DIAG INJ SC/IM Reviewed 06/23/2012 12:00 AM Decadron, Per 1 Mg [facility]# [address]-11 Reviewed 06/23/2012 12:00 AM Depo-Medrol, Per 80 Mg [facility]#0658-9195-69 Reviewed 12/01/2012 12:00 AM THER/PROPH/DIAG INJ SC/IM Reviewed 12/01/2012 12:00 AM Decadron, Per 1 Mg [facility]# [address]-11 Reviewed 12/01/2012 12:00 AM Depo-Medrol, Per 80 Mg [facility]#7616-8550-12 Reviewed 07/11/2009 12:00 AM Toradol 15 Mg,[facility]#0409-708491 Reviewed 01/26/2013 12:00 AM THER/PROPH/DIAG INJ SC/IM Reviewed 01/26/2013 12:00 AM Decadron, Per 1 Mg [facility]# [address]-53 Reviewed 04/17/2013 12:00 AM THER/PROPH/DIAG INJ SC/IM Reviewed 04/17/2013 12:00 AM Decadron, Per 12 Mg [facility]# [address]-38 Reviewed 04/27/2013 12:00 AM THER/PROPH/DIAG INJ SC/IM Reviewed 04/27/2013 12:00 AM Decadron, Per 12 Mg [facility]# [address]-79 Reviewed 04/27/2013 12:00 AM Rocephin 1 gram [facility]#4927-8695-30 Reviewed 05/29/2013 12:00 AM COMPLETE CBC W/AUTO DIFF WBC Reviewed 05/29/2013 12:00 AM COMPREHEN METABOLIC PANEL Reviewed 05/29/2013 12:00 AM GLYCOSYLATED HEMOGLOBIN TEST Reviewed 05/29/2013 12:00 AM LIPID PANEL Reviewed 05/29/2013 12:00 AM ASSAY OF PSA TOTAL Reviewed 05/29/2013 12:00 AM ROUTINE VENIPUNCTURE Reviewed 05/29/2013 12:00 AM THER/PROPH/DIAG INJ SC/IM Reviewed 05/29/2013 12:00 AM Decadron, Per 12 Mg [facility]# [address]-63 Reviewed 02/16/2010 12:00 AM ROUTINE VENIPUNCTURE Reviewed 02/16/2010 12:00 AM METABOLIC PANEL TOTAL CA Reviewed 02/16/2010 12:00 AM GLYCOSYLATED HEMOGLOBIN TEST Reviewed 08/17/2013 12:00 AM THER/PROPH/DIAG INJ SC/IM Reviewed 08/17/2013 12:00 AM Decadron, Per 1 Mg [facility]# [address]-18 Reviewed 08/17/2013 12:00 AM Rocephin 1 gram [facility]#1112-2942-53 Reviewed 09/07/2013 12:00 AM THER/PROPH/DIAG INJ SC/IM Reviewed 09/07/2013 12:00 AM Decadron, Per 1 Mg [facility]# [address]-98 Reviewed 09/29/2013 12:00 AM THER/PROPH/DIAG INJ SC/IM Reviewed 09/29/2013 12:00 AM Decadron, Per 1 Mg [facility]# [address]-95 Reviewed 09/29/2013 12:00 AM Rocephin 1 gram [facility]#9467-3772-18 Reviewed 12/28/2013 12:00 AM THER/PROPH/DIAG INJ SC/IM Reviewed 12/28/2013 12:00 AM Decadron, Per 1 Mg [facility]# [address]-70 Reviewed 02/17/2014 12:00 AM IMMUNIZATION ADMIN Reviewed 02/17/2014 12:00 AM THER/PROPH/DIAG INJ SC/IM Reviewed 02/17/2014 12:00 AM Decadron, Per 1 Mg [place]# [address]-23 Reviewed 02/17/2014 12:00 AM Depo-Medrol, Per 80 Mg [facility]#2518-3466-53 Reviewed 02/17/2014 12:00 AM Rocephin 1 gram [place]#8956-8514-99 Reviewed 04/06/2014 12:00 AM THER/PROPH/DIAG INJ SC/IM Reviewed 04/06/2014 12:00 AM Rocephin 1 gram [facility]#4976-4059-96 Reviewed 05/03/2014 12:00 AM THER/PROPH/DIAG INJ SC/IM Reviewed 05/03/2014 12:00 AM Decadron, Per 1 Mg [facility]# [address]-59 Reviewed 05/03/2014 12:00 AM Rocephin 1 gram [facility]#8042-8208-28 Reviewed 05/31/2014 12:00 AM THER/PROPH/DIAG INJ SC/IM Reviewed 05/31/2014 12:00 AM Decadron, Per 1 Mg [facility]# [address]-10 Reviewed Results Summary Date and Description Results [...] [employer] MSD Pneumovax 23 [id number] Intramuscular Left Deltoid 02/08/2012 06/17/2009 999 Influenza [...] 09 2016 6:35AM Coronary artery disease involving [place] coronary artery of [place] heart without angina pectoris Nov 09 2016 6:35AM Payers Insurance Name Company Name Plan Name Plan Number Policy Number Policy Group Number Start Date Medicare RHC Medicare RHC [id number] N/A [employer] - [place] State [place] [employer] [place] State [place] [id number] N/A Medicare Part A Medicare - Lab/Xray [id number] N/A [place] Prog [id number] N/A Medicare Part B Medicare Secondary [id number] Sunday, May 02, 2010 Medicare Part A Medicare Part A [id number] N/A [employer] [place] State Plan [employer] [place] State Plan [id number] N/A History of Encounters Visit Date Visit Type Provider 11/07/2016 Office visit ADRYAN CARLISLE 10/16/2016 Office visit ADRYAN CARLISLE 10/08/2016 Office visit ADRYAN CARLISLE 10/03/2016 Office visit ADRYAN CARLISLE [...]
--- OUTSIDE RECORDS SUMMARY | 2018-05-04 08:01 | XMS REPORT ---
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 Name Role Phone ADRYAN GUTIÉRREZ PCP Unavailable [...] Syringe DIRECTED 06/30/2014 0.5ml 31Guage 8mm 07/17 [facility] simvastatin 20 mg oral tablet 09/24/2014 TAKE ONE TABLET BY MOUTH ONCE DAILY IN THE THE EVENING escitalopram oxalate 20 mg oral tablet 12/16/2014 TAKE 1 TABLET BY MOUTH DAILY [place] 10-325 mg oral tablet 03/10/2015 take 1 [...] a day Percocet 5-325 mg oral tablet 07/28/2015 take 1 tablet by oral route every 6 hours as needed simvastatin 20 mg oral tablet 10/13/2015 TAKE [...] needed, up to 6 doses per day Levaquin 500 mg oral tablet 10/16/2015 take 1 tablet (500 mg) by oral route once daily promethazine-codeine 6.25-10 mg/5 mL oral syrup 10/16/2015 take 5 milliliters by oral route every [...] oral route once daily for 4 days [place] Parker 100 mg oral capsule 12/30/2013 take 1 [...] HC BMI BSA BMI Percentile O2 Sat(%) 10/13/2015 10:07:00 AM 118 mmHg 68 mmHg [...] 03/25/2015 12:00 AM Decadron, Per 1 Mg [facility]# [address]-73 Reviewed 03/25/2015 12:00 AM Depo-Medrol, Per 80 Mg [facility]#9879-9908-17 Reviewed 03/25/2015 12:00 AM Rocephin 1 gram [facility]#7269-8670-94 Reviewed 06/16/2015 12:00 AM Decadron, Per 1 Mg [facility]# [address]-58 Reviewed 06/16/2015 12:00 AM Rocephin 1 gram [facility]#0278-8683-83 Reviewed 07/14/2015 12:00 AM Removal impacted cerumen [...] SC/IM Reviewed 04/03/2011 12:00 AM Decadron Inj.1mg-([facility]) [facility] #[id number] Reviewed 04/03/2011 12:00 AM Depo-Medrol 80 Mg Im/St Tr [facility] 0009-750874 Reviewed 07/11/2011 12:00 AM THER/PROPH/DIAG INJ SC/IM Reviewed 07/11/2011 12:00 AM Decadron Inj.1mg-([facility]) [facility] #[id number] Reviewed 07/11/2011 12:00 AM Depo-Medrol 80 Mg Im/St Tr [facility] 0009-049252 Reviewed 07/11/2011 12:00 AM Rocephin, Per 250MG - 1 Gram Vial [facility] 0691-309307-Bi Tr Reviewed 10/09/2011 12:00 AM ROUTINE VENIPUNCTURE [...] Reviewed 01/08/2012 12:00 AM Rocephin 1 gram [facility]#9052-6622-44 Reviewed 02/08/2012 12:00 AM Flu Injection 3 Years And Above [facility]# [address]-15 R[facility] Reviewed 02/08/2012 12:00 AM PNEUMOCOCCAL VACC 23 EVY IM Reviewed 05/19/2012 12:00 AM THER/PROPH/DIAG INJ SC/IM Reviewed 05/19/2012 12:00 AM Decadron, Per 1 Mg [facility]# [address]-28 Reviewed 05/19/2012 12:00 AM Rocephin 1 gram [facility]#3376-6421-48 Reviewed 06/23/2012 12:00 AM THER/PROPH/DIAG INJ SC/IM Reviewed 06/23/2012 12:00 AM Decadron, Per 1 Mg [facility]# [address]-68 Reviewed 06/23/2012 12:00 AM Depo-Medrol, Per 80 Mg [facility]#5251-5682-03 Reviewed 12/01/2012 12:00 AM THER/PROPH/DIAG INJ SC/IM Reviewed 12/01/2012 12:00 AM Decadron, Per 1 Mg [facility]# [address]-95 Reviewed 12/01/2012 12:00 AM Depo-Medrol, Per 80 Mg [facility]#5938-7453-27 Reviewed 07/11/2009 12:00 AM Toradol 15 Mg,[facility]#0409-879553 Reviewed 01/26/2013 12:00 AM THER/PROPH/DIAG INJ SC/IM Reviewed 01/26/2013 12:00 AM Decadron, Per 1 Mg [facility]# [address]-72 Reviewed 04/17/2013 12:00 AM THER/PROPH/DIAG INJ SC/IM Reviewed 04/17/2013 12:00 AM Decadron, Per 12 Mg [facility]# [address]-99 Reviewed 04/27/2013 12:00 AM THER/PROPH/DIAG INJ SC/IM Reviewed 04/27/2013 12:00 AM Decadron, Per 12 Mg [facility]# [address]-53 Reviewed 04/27/2013 12:00 AM Rocephin 1 gram [facility]#6504-8008-17 Reviewed 05/29/2013 12:00 AM COMPLETE CBC W/AUTO DIFF WBC Reviewed 05/29/2013 12:00 AM COMPREHEN METABOLIC PANEL Reviewed 05/29/2013 12:00 AM GLYCOSYLATED HEMOGLOBIN TEST Reviewed 05/29/2013 12:00 AM LIPID PANEL Reviewed 05/29/2013 12:00 AM ASSAY OF PSA TOTAL Reviewed 05/29/2013 12:00 AM ROUTINE VENIPUNCTURE Reviewed 05/29/2013 12:00 AM THER/PROPH/DIAG INJ SC/IM Reviewed 05/29/2013 12:00 AM Decadron, Per 12 Mg [facility]# [address]-83 Reviewed 02/16/2010 12:00 AM ROUTINE VENIPUNCTURE Reviewed 02/16/2010 12:00 AM METABOLIC PANEL TOTAL CA Reviewed 02/16/2010 12:00 AM GLYCOSYLATED HEMOGLOBIN TEST Reviewed 08/17/2013 12:00 AM THER/PROPH/DIAG INJ SC/IM Reviewed 08/17/2013 12:00 AM Decadron, Per 1 Mg [facility]# [address]-20 Reviewed 08/17/2013 12:00 AM Rocephin 1 gram [facility]#3538-8023-42 Reviewed 09/07/2013 12:00 AM THER/PROPH/DIAG INJ SC/IM Reviewed 09/07/2013 12:00 AM Decadron, Per 1 Mg [facility]# [address]-47 Reviewed 09/29/2013 12:00 AM THER/PROPH/DIAG INJ SC/IM Reviewed 09/29/2013 12:00 AM Decadron, Per 1 Mg [facility]# [address]-47 Reviewed 09/29/2013 12:00 AM Rocephin 1 gram [facility]#6852-1055-06 Reviewed 12/28/2013 12:00 AM THER/PROPH/DIAG INJ SC/IM Reviewed 12/28/2013 12:00 AM Decadron, Per 1 Mg [facility]# [address]-19 Reviewed 02/17/2014 12:00 AM IMMUNIZATION ADMIN Reviewed 02/17/2014 12:00 AM THER/PROPH/DIAG INJ SC/IM Reviewed 02/17/2014 12:00 AM Decadron, Per 1 Mg [facility]# [address]-33 Reviewed 02/17/2014 12:00 AM Depo-Medrol, Per 80 Mg [facility]#1235-9731-00 Reviewed 02/17/2014 12:00 AM Rocephin 1 gram [facility]#6561-0516-98 Reviewed 04/06/2014 12:00 AM THER/PROPH/DIAG INJ SC/IM Reviewed 04/06/2014 12:00 AM Rocephin 1 gram [facility]#0223-8330-24 Reviewed 05/03/2014 12:00 AM THER/PROPH/DIAG INJ SC/IM Reviewed 05/03/2014 12:00 AM Decadron, Per 1 Mg [place]# [address]-66 Reviewed 05/03/2014 12:00 AM Rocephin 1 gram [facility]#1860-0461-34 Reviewed 05/31/2014 12:00 AM THER/PROPH/DIAG INJ SC/IM Reviewed 05/31/2014 12:00 AM Decadron, Per 1 Mg [facility]# [address]-68 Reviewed Results Summary Data and Description Results [...] BILI 0.80 mg/dLCALCIUM 9.60 mg/dLeGFR >60 mL/min/1.73 [id number] 132.0 mg/dLCHOLESTEROL 109.0 mg/ dLHDL 32.0 mg/dLLDL [...] [employer] MSD Pneumovax 23 [id number] Intramuscular Left Deltoid 02/08/2012 06/17/2009 999 Influenza [...] Feb 2011 9:57AM Coronary Artery Disease Feb 7 2011 9:57AM Diabetes Mellitus, Type II May [...] 2015 10:07AM Smoker Oct 13 2015 10:07AM Payers Insurance Name Company Name Plan Name Plan Number Policy Number Policy Group Number Start Date Medicare Part A Medicare RHC [id number] N/[place] [employer] [place] [employer] [place] [id number] N/A Medicare Part A Medicare - Lab/Xray [id number] N/A [place] Prog [id number] N/A Medicare Part B Medicare Secondary [id number] Sunday, May 02, 2010 Medicare Part A Medicare Part A [id number] N/A History of Encounters Visit Date Visit Type Provider 10/13/2015 Office visit ADRYAN CARLISLE 07/14/2015 Office [...]
--- OUTSIDE RECORDS SUMMARY | 2018-05-04 08:03 | XMS REPORT ---
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 promethazine-codeine 6.25-10 mg/5 mL oral syrup 12/10/2015 [...] take 1 tablet by oral route daily Percocet 10-325 mg oral tablet 01/23/2016 take 1 tablet by oral route every [...] an interval of 6 to 8 hours [place] 10-325 mg oral tablet 03/10/2015 12/10/2015 take [...] 03/25/2015 12:00 AM Decadron, Per 1 Mg [facility]# [address]-04 Reviewed 03/25/2015 12:00 AM Depo-Medrol, Per 80 Mg [facility]#4651-0972-92 Reviewed 03/25/2015 12:00 AM Rocephin 1 gram [facility]#6027-5290-68 Reviewed 06/16/2015 12:00 AM Decadron, Per 1 Mg [facility]# [address]-59 Reviewed 06/16/2015 12:00 AM Rocephin 1 gram [facility]#7059-6685-91 Reviewed 07/14/2015 12:00 AM Removal impacted cerumen [...] SC/IM Reviewed 04/03/2011 12:00 AM Decadron Inj.1mg-([facility]) [facility] #[id number] Reviewed 04/03/2011 12:00 AM Depo-Medrol 80 Mg Im/St Tr [facility] 0009-696251 Reviewed 10/13/2015 12:00 AM Decadron, Per 1 Mg [facility]# [address]-01 Reviewed 10/13/2015 12:00 AM Rocephin 1 gram [facility]#7426-1353-93 Reviewed 07/11/2011 12:00 AM THER/PROPH/DIAG INJ SC/IM Reviewed 07/11/2011 12:00 AM Decadron Inj.1mg-([facility]) [facility] #[id number] Reviewed 07/11/2011 12:00 AM Depo-Medrol 80 Mg Im/ Tr [facility] 0009-157026 Reviewed 07/11/2011 12:00 AM Rocephin, Per 250MG - 1 Gram Vial [facility] 5869-205623-Fw Paul Reviewed 10/09/2011 12:00 AM ROUTINE VENIPUNCTURE [...] Reviewed 01/08/2012 12:00 AM Rocephin 1 gram [facility]#7616-5173-01 Reviewed 02/08/2012 12:00 AM Flu Injection 3 Years And Above [facility]# [address]-75 [facility] Reviewed 02/08/2012 12:00 AM PNEUMOCOCCAL VACC 23 EVY IM Reviewed 05/19/2012 12:00 AM THER/PROPH/DIAG INJ SC/IM Reviewed 05/19/2012 12:00 AM Decadron, Per 1 Mg [facility]# [address]-30 Reviewed 05/19/2012 12:00 AM Rocephin 1 gram [facility]#2622[address]-56 Reviewed 06/23/2012 12:00 AM THER/PROPH/DIAG INJ SC/IM Reviewed 06/23/2012 12:00 AM Decadron, Per 1 Mg [facility]# [address]-35 Reviewed 06/23/2012 12:00 AM Depo-Medrol, Per 80 Mg [facility]#5698-5594-08 Reviewed 12/01/2012 12:00 AM THER/PROPH/DIAG INJ SC/IM Reviewed 12/01/2012 12:00 AM Decadron, Per 1 Mg [facility]# [address]-36 Reviewed 12/01/2012 12:00 AM Depo-Medrol, Per 80 Mg [facility]#6351-7255-55 Reviewed 07/11/2009 12:00 AM Toradol 15 Mg,[facility]#0409-999029 Reviewed 01/26/2013 12:00 AM THER/PROPH/DIAG INJ SC/IM Reviewed 01/26/2013 12:00 AM Decadron, Per 1 Mg [facility]# [address]-36 Reviewed 04/17/2013 12:00 AM THER/PROPH/DIAG INJ SC/IM Reviewed 04/17/2013 12:00 AM Decadron, Per 12 Mg [facility]# [address]-19 Reviewed 04/27/2013 12:00 AM THER/PROPH/DIAG INJ SC/IM Reviewed 04/27/2013 12:00 AM Decadron, Per 12 Mg [facility]# [address]-76 Reviewed 04/27/2013 12:00 AM Rocephin 1 gram [facility]#8215-6765-55 Reviewed 05/29/2013 12:00 AM COMPLETE CBC W/AUTO DIFF WBC Reviewed 05/29/2013 12:00 AM COMPREHEN METABOLIC PANEL Reviewed 05/29/2013 12:00 AM GLYCOSYLATED HEMOGLOBIN TEST Reviewed 05/29/2013 12:00 AM LIPID PANEL Reviewed 05/29/2013 12:00 AM ASSAY OF PSA TOTAL Reviewed 05/29/2013 12:00 AM ROUTINE VENIPUNCTURE Reviewed 05/29/2013 12:00 AM THER/PROPH/DIAG INJ SC/IM Reviewed 05/29/2013 12:00 AM Decadron, Per 12 Mg [facility]# [address]-76 Reviewed 02/16/2010 12:00 AM ROUTINE VENIPUNCTURE Reviewed 02/16/2010 12:00 AM METABOLIC PANEL TOTAL CA Reviewed 02/16/2010 12:00 AM GLYCOSYLATED HEMOGLOBIN TEST Reviewed 08/17/2013 12:00 AM THER/PROPH/DIAG INJ SC/IM Reviewed 08/17/2013 12:00 AM Decadron, Per 1 Mg [facility]# [address]-92 Reviewed 08/17/2013 12:00 AM Rocephin 1 gram [facility]#3620-7336-27 Reviewed 09/07/2013 12:00 AM THER/PROPH/DIAG INJ SC/IM Reviewed 09/07/2013 12:00 AM Decadron, Per 1 Mg [facility]# [address]-91 Reviewed 09/29/2013 12:00 AM THER/PROPH/DIAG INJ SC/IM Reviewed 09/29/2013 12:00 AM Decadron, Per 1 Mg [facility]# [address]-24 Reviewed 09/29/2013 12:00 AM Rocephin 1 gram [facility]#0540-7604-45 Reviewed 12/28/2013 12:00 AM THER/PROPH/DIAG INJ SC/IM Reviewed 12/28/2013 12:00 AM Decadron, Per 1 Mg [place]# [address]-42 Reviewed 02/17/2014 12:00 AM IMMUNIZATION ADMIN Reviewed 02/17/2014 12:00 AM THER/PROPH/DIAG INJ SC/IM Reviewed 02/17/2014 12:00 AM Decadron, Per 1 Mg [facility]# [address]-56 Reviewed 02/17/2014 12:00 AM Depo-Medrol, Per 80 Mg [facility]#6747-[address]-93 Reviewed 02/17/2014 12:00 AM Rocephin 1 gram [facility]#6910-3690-96 Reviewed 04/06/2014 12:00 AM THER/PROPH/DIAG INJ SC/IM Reviewed 04/06/2014 12:00 AM Rocephin 1 gram [facility]#2485-3147-03 Reviewed 05/03/2014 12:00 AM THER/PROPH/DIAG INJ SC/IM Reviewed 05/03/2014 12:00 AM Decadron, Per 1 Mg [facility]# [address]-34 Reviewed 05/03/2014 12:00 AM Rocephin 1 gram [facility]#1756-9611-15 Reviewed 05/31/2014 12:00 AM THER/PROPH/DIAG INJ SC/IM Reviewed 05/31/2014 12:00 AM Decadron, Per 1 Mg [facility]# [address]-80 Reviewed Results Summary Data and Description Results [...] [employer] MSD Pneumovax 23 [id number] Intramuscular Left Deltoid 02/08/2012 06/17/2009 999 Influenza [...] 2011 9:57AM Diabetes Mellitus, Type II Feb 7 2011 9:57AM Tobacco Abuse Feb 7 2011 9:57AM Chronic Obstructive Pulmonary Disease Feb 7 2011 9:57AM Coronary Artery Disease Feb 7 [...] 1:25PM Reflux esophagitis Jan 30 2016 1:25PM Payers Insurance Name Company Name Plan Name Plan Number Policy Number Policy Group Number Start Date Medicare Part A Medicare [facility] [id number] N/A [employer] - [facility] [place] State [place] [employer] - [facility] [place] State [place] [id number] N/A Medicare Part A Medicare - Lab/Xray [id number] N/A [place] [employer] [facility] [place] [employer] [facility] [id number] N/A Medicare Part B Medicare Secondary [id number] Sunday, May 02, 2010 Medicare Part A Medicare Part A [id number] N/A [employer] [place] [employer] [place] [id number] N/A History of Encounters Visit Date Visit Type Provider 01/30/2016 Office visit Adryan Burnham MD 01/17/2016 [facility] 01/09/2016 Office visit Adryan Burnham MD 01/06/2016 Office visit ADRYAN GUTIÉRREZ PA 12/09/2015 Office visit ADRYAN CARLISLE 10/13/2015 Office visit ADRYAN CARLISLE 07/14/2015 Office visit ADRYAN GUTIÉRREZ PA 06/16/2015 Office visit ADRYAN GUTIÉRREZ PA 03/10/2015 Office visit ADRYAN GUTIÉRREZ PA 11/26/2014 Office visit ADRYAN CARLISLE 08/09/2014 Office [...]
--- OUTSIDE RECORDS SUMMARY | 2018-05-04 08:05 | XMS REPORT ---
Author ADRYAN Montenegro [facility] Address [address] [place], [place] [address] Care Team Providers Care Channel Partners Name Role Phone ADRYAN GUTIÉRREZ PCP Unavailable [...] Syringe DIRECTED 06/30/2014 0.5ml 31Guage 8mm 07/17 [facility] simvastatin 20 mg oral tablet 09/24/2014 [...] inhalation route every 6 hours as needed Lexapro 20 mg oral tablet 01/07/2016 take 1 tablet by oral route daily Xanax 0.5 mg oral tablet 03/08/2016 take 1 tablet (0.5 mg) by oral route 3 times per day promethazine-codeine 6.25-10 mg/5 mL oral syrup 04/02/2016 [...] (5 MG) BY ORAL ROUTE ONCE DAILY Percocet 10-325 mg oral tablet 06/05/2016 take 1 tablet by oral route every 6 hours as needed Symbicort 160-4.5 mcg/actuation inhalation HFA aerosol inhaler 06/19/201610/17 inhale 2 puffs by inhalation route 2 times per day in the morning and evening for 30 days Name Start Date Expiration [...] by topical route 3 times per day Discontinued Name Start Date Discontinued Date SIG [...] (18 mcg) by inhalation route once daily [place] 10-325 mg oral tablet 03/10/2015 12/10/2015 take [...] HC BMI BSA BMI Percentile O2 Sat(%) 06/18/2016 1:13:00 PM 114 mmHg 72 mmHg 76 bpm 18 rpm 94.2 F 258 lbs 72 in 34.99 kg/m2 2.44 m2 96 % 06/13/2016 1:04:00 PM 128 mmHg 60 mmHg 74 bpm 18 rpm 96.1 F 260 lbs 72 in 35.262 kg/m 2.4477 m 95 % 05/04/2016 11:21:00 AM 108 mmHg 70 mmHg 86 bpm 18 rpm 97.4 F 260.375 lbs 72 in 35.31 kg/m2 2.45 m2 95 % 04/02/2016 6:49:00 AM 132 mmHg 86 mmHg 86 bpm 16 rpm 97.2 F 259 lbs 72 in 35.1264 kg/m 2.443 m 98 % 01/09/2016 1:55:00 PM [...] 03/25/2015 12:00 AM Decadron, Per 1 Mg [facility]# [address]-09 Reviewed 03/25/2015 12:00 AM Depo-Medrol, Per 80 Mg [facility]#2944-5173-37 Reviewed 03/25/2015 12:00 AM Rocephin 1 gram [facility]#1430-9824-86 Reviewed 06/16/2015 12:00 AM Decadron, Per 1 Mg [facility]# [address]-91 Reviewed 06/16/2015 12:00 AM Rocephin 1 gram [facility]#4164-1924-84 Reviewed 07/14/2015 12:00 AM Removal impacted cerumen [...] SC/IM Reviewed 04/03/2011 12:00 AM Decadron Inj.1mg-(St.Tr) [facility] #[id number] Reviewed 04/03/2011 12:00 AM Depo-Medrol 80 Mg Im/St Tr [facility] [id number] Reviewed 10/13/2015 12:00 AM Decadron, Per 1 Mg [facility]# [address]-91 Reviewed 10/13/2015 12:00 AM Rocephin 1 gram [facility]#7755-9556-45 Reviewed 07/11/2011 12:00 AM THER/PROPH/DIAG INJ SC/IM Reviewed 07/11/2011 12:00 AM Decadron Inj.1mg-(St.Tr) [facility] #[id number] Reviewed 07/11/2011 12:00 AM Depo-Medrol 80 Mg Im/St Tr [facility] [id number] Reviewed 07/11/2011 12:00 AM Rocephin, Per 250MG - 1 Gram Vial [facility] 3246-638208-Wo Paul Reviewed 04/01/2016 12:00 AM THERAPEUTIC PROPHYLACTIC/DX INJECTION SUBQ/IM Reviewed 04/01/2016 12:00 AM Decadron 8mg Injection, [facility] Medicare Reviewed 10/09/2011 12:00 AM [...] Reviewed 01/08/2012 12:00 AM Rocephin 1 gram [facility]#1973-3759-59 Reviewed 02/08/2012 12:00 AM Flu Injection 3 Years And Above [facility]# [address]-44 [facility] Reviewed 02/08/2012 12:00 AM PNEUMOCOCCAL VACC 23 EVY IM Reviewed 05/19/2012 12:00 AM THER/PROPH/DIAG INJ SC/IM Reviewed 05/19/2012 12:00 AM Decadron, Per 1 Mg [facility]# [address]-72 Reviewed 05/19/2012 12:00 AM Rocephin 1 gram [facility]#3536-8632-50 Reviewed 06/23/2012 12:00 AM THER/PROPH/DIAG INJ SC/IM Reviewed 06/23/2012 12:00 AM Decadron, Per 1 Mg [facility]# [address]-64 Reviewed 06/23/2012 12:00 AM Depo-Medrol, Per 80 Mg [facility]#0399-3647-58 Reviewed 12/01/2012 12:00 AM THER/PROPH/DIAG INJ SC/IM Reviewed 12/01/2012 12:00 AM Decadron, Per 1 Mg [facility]# [address]-96 Reviewed 12/01/2012 12:00 AM Depo-Medrol, Per 80 Mg [facility]#4338-5284-01 Reviewed 07/11/2009 12:00 AM Toradol 15 Mg,[facility]#0409-251162 Reviewed 01/26/2013 12:00 AM THER/PROPH/DIAG INJ SC/IM Reviewed 01/26/2013 12:00 AM Decadron, Per 1 Mg [facility]# [address]-74 Reviewed 04/17/2013 12:00 AM THER/PROPH/DIAG INJ SC/IM Reviewed 04/17/2013 12:00 AM Decadron, Per 12 Mg [facility]# [address]-49 Reviewed 04/27/2013 12:00 AM THER/PROPH/DIAG INJ SC/IM Reviewed 04/27/2013 12:00 AM Decadron, Per 12 Mg [facility]# [address]-39 Reviewed 04/27/2013 12:00 AM Rocephin 1 gram [facility]#6541-[address]004-11 Reviewed 05/29/2013 12:00 AM COMPLETE CBC W/AUTO DIFF WBC Reviewed 05/29/2013 12:00 AM COMPREHEN METABOLIC PANEL Reviewed 05/29/2013 12:00 AM GLYCOSYLATED HEMOGLOBIN TEST Reviewed 05/29/2013 12:00 AM LIPID PANEL Reviewed 05/29/2013 12:00 AM ASSAY OF PSA TOTAL Reviewed 05/29/2013 12:00 AM ROUTINE VENIPUNCTURE Reviewed 05/29/2013 12:00 AM THER/PROPH/DIAG INJ SC/IM Reviewed 05/29/2013 12:00 AM Decadron, Per 12 Mg [facility]# [address]-95 Reviewed 02/16/2010 12:00 AM ROUTINE VENIPUNCTURE Reviewed 02/16/2010 12:00 AM METABOLIC PANEL TOTAL CA Reviewed 02/16/2010 12:00 AM GLYCOSYLATED HEMOGLOBIN TEST Reviewed 08/17/2013 12:00 AM THER/PROPH/DIAG INJ SC/IM Reviewed 08/17/2013 12:00 AM Decadron, Per 1 Mg [facility]# [address]-94 Reviewed 08/17/2013 12:00 AM Rocephin 1 gram [facility]#9148-4962-31 Reviewed 09/07/2013 12:00 AM THER/PROPH/DIAG INJ SC/IM Reviewed 09/07/2013 12:00 AM Decadron, Per 1 Mg [facility]# [address]-42 Reviewed 09/29/2013 12:00 AM THER/PROPH/DIAG INJ SC/IM Reviewed 09/29/2013 12:00 AM Decadron, Per 1 Mg [facility]# [address]-08 Reviewed 09/29/2013 12:00 AM Rocephin 1 gram [facility]#1275-0633-39 Reviewed 12/28/2013 12:00 AM THER/PROPH/DIAG INJ SC/IM Reviewed 12/28/2013 12:00 AM Decadron, Per 1 Mg [place]# [address]-20 Reviewed 02/17/2014 12:00 AM IMMUNIZATION ADMIN Reviewed 02/17/2014 12:00 AM THER/PROPH/DIAG INJ SC/IM Reviewed 02/17/2014 12:00 AM Decadron, Per 1 Mg [facility]# [address]-66 Reviewed 02/17/2014 12:00 AM Depo-Medrol, Per 80 Mg [facility]#2105-3754-10 Reviewed 02/17/2014 12:00 AM Rocephin 1 gram [facility]#4670-8507-59 Reviewed 04/06/2014 12:00 AM THER/PROPH/DIAG INJ SC/IM Reviewed 04/06/2014 12:00 AM Rocephin 1 gram [facility]#8116-8709-38 Reviewed 05/03/2014 12:00 AM THER/PROPH/DIAG INJ SC/IM Reviewed 05/03/2014 12:00 AM Decadron, Per 1 Mg [facility]# [address]-67 Reviewed 05/03/2014 12:00 AM Rocephin 1 gram [facility]#3311-4041-47 Reviewed 05/31/2014 12:00 AM THER/PROPH/DIAG INJ SC/IM Reviewed 05/31/2014 12:00 AM Decadron, Per 1 Mg [facility]# [address]-11 Reviewed Results Summary Data and Description Results [...] [employer] MSD Pneumovax 23 [id number] Intramuscular Left Deltoid 02/08/2012 06/17/2009 999 Influenza [...] Artery Disease Apr 03 2011 8:40AM Osteoarthrosis b 2011 9:57AM Diabetes Mellitus, Type II Apr [...] 1:13PM Medication management Jun 18 2016 1:13PM Payers Insurance Name Company Name Plan Name Plan Number Policy Number Policy Group Number Start Date Medicare RHC Medicare [facility] [id number] N/A [employer] - [facility] - [place] State Plan [employer] - [facility] [place] State Plan [id number] N/A Medicare Part A Medicare - Lab/Xray [id number] N/A [place] [employer] [place] Prog [id number] N/A Medicare Part B Medicare Secondary [id number] Sunday, May 02, 2010 Medicare Part A Medicare Part A [id number] N/A [employer] [place] [employer] [place] [id number] N/A History of Encounters Visit Date Visit Type Provider 06/18/2016 Office visit ADRYAN CARLISLE 06/13/2016 Office visit ADRYAN CARLISLE 05/04/2016 Office visit ADRYAN CARLISLE 04/01/2016 Office visit ADRYAN CARLISLE 01/30/2016 Office visit Adryan Burnham MD 01/17/2016 [facility] Adryan Burnham MD 01/09/2016 Office [...] ADRYAN GUTIÉRREZ PA 01/26/2013 Office visit ADRYAN CARLISLE 12/01/2012 Office visit ADRYAN GUTIÉRREZ PA 06/23/2012 [...] 02/17/2009 Laboratory Geo Wallace MD 12/17/2008 Laboratory Adryna Gutiérrez PA-C
--- OUTSIDE RECORDS SUMMARY | 2018-05-04 08:06 | XMS REPORT ---
Author ADRYAN Montenegro [facility] Address [address] [place], [place] [address] Care Team Providers Care Composition Molder Name Role Phone ADRYAN GUTIÉRREZ PCP Unavailable [...] Syringe DIRECTED 06/30/2014 0.5ml 31Guage 8mm 07/17 [facility] simvastatin 20 mg oral tablet 09/24/2014 [...] (18 mcg) by inhalation route once daily [place] 10-325 mg oral tablet 03/10/2015 12/10/2015 take [...] 1 Mg [facility]# [address]-67 Reviewed 03/25/2015 12:00 AM Depo-Medrol, Per 80 Mg [facility]#3544-2755-12 Reviewed 03/25/2015 12:00 AM Rocephin 1 gram [facility]#7421-5220-48 Reviewed 06/16/2015 12:00 AM Decadron, Per 1 Mg [facility]# [address]-98 Reviewed 06/16/2015 12:00 AM Rocephin 1 gram [facility]#6797-9832-13 Reviewed 07/14/2015 12:00 AM Removal impacted cerumen [...] SC/IM Reviewed 04/03/2011 12:00 AM Decadron Inj.1mg-(St.Tr) [facility] #[id number] Reviewed 04/03/2011 12:00 AM Depo-Medrol 80 Mg Im/St Tr [facility] 0009-566969 Reviewed 10/13/2015 12:00 AM Decadron, Per 1 Mg [facility]# [address]-15 Reviewed 10/13/2015 12:00 AM Rocephin 1 gram [facility]#9197-4090-73 Reviewed 07/11/2011 12:00 AM THER/PROPH/DIAG INJ SC/IM Reviewed 07/11/2011 12:00 AM Decadron Inj.1mg-(St.Tr) [facility] #[id number] Reviewed 07/11/2011 12:00 AM Depo-Medrol 80 Mg Im/St Tr [facility] [id number] Reviewed 07/11/2011 12:00 AM Rocephin, Per 250MG - 1 Gram Vial [facility] 9436-831127-Sd Paul Reviewed 04/01/2016 12:00 AM THERAPEUTIC PROPHYLACTIC/DX INJECTION SUBQ/IM Reviewed 04/01/2016 12:00 AM Decadron 8mg Injection, [facility] Medicare Reviewed 06/13/2016 12:00 AM THER/PROPH/DIAG [...] 1 gram [facility]#0434-1947-12 Reviewed 02/08/2012 12:00 AM Flu Injection 3 Years And Above [facility]# [address]-20 [facility] Reviewed 02/08/2012 12:00 AM PNEUMOCOCCAL VACC 23 EVY IM Reviewed 05/19/2012 12:00 AM THER/PROPH/DIAG INJ SC/IM Reviewed 05/19/2012 12:00 AM Decadron, Per 1 Mg [facility]# [address]-38 Reviewed 05/19/2012 12:00 AM Rocephin 1 gram [facility]#2390-7151-40 Reviewed 06/23/2012 12:00 AM THER/PROPH/DIAG INJ SC/IM Reviewed 06/23/2012 12:00 AM Decadron, Per 1 Mg [facility]# [address]-06 Reviewed 06/23/2012 12:00 AM Depo-Medrol, Per 80 Mg [facility]#8330-3512-58 Reviewed 12/01/2012 12:00 AM THER/PROPH/DIAG INJ SC/IM Reviewed 12/01/2012 12:00 AM Decadron, Per 1 Mg [facility]# [address]-39 Reviewed 12/01/2012 12:00 AM Depo-Medrol, Per 80 Mg [facility]#2192-6829-52 Reviewed 07/11/2009 12:00 AM Toradol 15 Mg,[facility]#0409-736851 Reviewed 01/26/2013 12:00 AM THER/PROPH/DIAG INJ SC/IM Reviewed 01/26/2013 12:00 AM Decadron, Per 1 Mg [facility]# [address]-27 Reviewed 04/17/2013 12:00 AM THER/PROPH/DIAG INJ SC/IM Reviewed 04/17/2013 12:00 AM Decadron, Per 12 Mg [facility]# [address]-40 Reviewed 04/27/2013 12:00 AM THER/PROPH/DIAG INJ SC/IM Reviewed 04/27/2013 12:00 AM Decadron, Per 12 Mg [facility]# [address]-31 Reviewed 04/27/2013 12:00 AM Rocephin 1 gram [facility]#9631-7417-02 Reviewed 05/29/2013 12:00 AM COMPLETE CBC W/AUTO DIFF WBC Reviewed 05/29/2013 12:00 AM COMPREHEN METABOLIC PANEL Reviewed 05/29/2013 12:00 AM GLYCOSYLATED HEMOGLOBIN TEST Reviewed 05/29/2013 12:00 AM LIPID PANEL Reviewed 05/29/2013 12:00 AM ASSAY OF PSA TOTAL Reviewed 05/29/2013 12:00 AM ROUTINE VENIPUNCTURE Reviewed 05/29/2013 12:00 AM THER/PROPH/DIAG INJ SC/IM Reviewed 05/29/2013 12:00 AM Decadron, Per 12 Mg [facility]# [address]-41 Reviewed 02/16/2010 12:00 AM ROUTINE VENIPUNCTURE Reviewed 02/16/2010 12:00 AM METABOLIC PANEL TOTAL CA Reviewed 02/16/2010 12:00 AM GLYCOSYLATED HEMOGLOBIN TEST Reviewed 08/17/2013 12:00 AM THER/PROPH/DIAG INJ SC/IM Reviewed 08/17/2013 12:00 AM Decadron, Per 1 Mg [facility]# [address]-32 Reviewed 08/17/2013 12:00 AM Rocephin 1 gram [facility]#3172-0682-37 Reviewed 09/07/2013 12:00 AM THER/PROPH/DIAG INJ SC/IM Reviewed 09/07/2013 12:00 AM Decadron, Per 1 Mg [facility]# [address]-34 Reviewed 09/29/2013 12:00 AM THER/PROPH/DIAG INJ SC/IM Reviewed 09/29/2013 12:00 AM Decadron, Per 1 Mg [facility]# [address]-31 Reviewed 09/29/2013 12:00 AM Rocephin 1 gram [facility]#3018-4041-90 Reviewed 12/28/2013 12:00 AM THER/PROPH/DIAG INJ SC/IM Reviewed 12/28/2013 12:00 AM Decadron, Per 1 Mg [facility]# [address]-29 Reviewed 02/17/2014 12:00 AM IMMUNIZATION ADMIN Reviewed 02/17/2014 12:00 AM THER/PROPH/DIAG INJ SC/IM Reviewed 02/17/2014 12:00 AM Decadron, Per 1 Mg [place]# [address]-46 Reviewed 02/17/2014 12:00 AM Depo-Medrol, Per 80 Mg [place]#8208-1860-42 Reviewed 02/17/2014 12:00 AM Rocephin 1 gram [facility]#0766-3789-78 Reviewed 04/06/2014 12:00 AM THER/PROPH/DIAG INJ SC/IM Reviewed 04/06/2014 12:00 AM Rocephin 1 gram [facility]#2356-9325-55 Reviewed 05/03/2014 12:00 AM THER/PROPH/DIAG INJ SC/IM Reviewed 05/03/2014 12:00 AM Decadron, Per 1 Mg [facility]# [address]-57 Reviewed 05/03/2014 12:00 AM Rocephin 1 gram [facility]#8969-9212-06 Reviewed 05/31/2014 12:00 AM THER/PROPH/DIAG INJ SC/IM Reviewed 05/31/2014 12:00 AM Decadron, Per 1 Mg [facility]# [address]-88 Reviewed Results Summary Date and Description Results [...] [employer] MSD Pneumovax 23 [id number] Intramuscular Left Deltoid 02/08/2012 06/17/2009 999 Influenza [...] b 2011 9:57AM Diabetes Mellitus, Type II b [...] migrainosus, not intractable Oct 01 2016 10:07AM Payers Insurance Name Company Name Plan Name Plan Number Policy Number Policy Group Number Start Date Medicare RHC Medicare RHC [id number] N/A [employer] - [facility] - [place] State Plan [employer] - [facility] State Plan [id number] N/A Medicare Part A Medicare - Lab/Xray [id number] N/A [place] [employer] [place] [employer] [place] Prog [id number] N/A Medicare Part B Medicare Secondary [id number] Sunday, May 02, 2010 Medicare Part A Medicare Part A [id number] N/A [employer] [place] State Plan [facility] [id number] N/A History of Encounters Visit Date Visit Type Provider 10/01/2016 Office visit ADRYAN CARLISLE 09/28/2016 Office visit ADRYAN CARLILSE 09/27/2016 Office visit ADRYAN CARLISLE 06/18/2016 Office visit ADRYAN CARLISLE 06/13/2016 Office visit ADRYAN CARLISLE 05/04/2016 Office visit ADRYAN CARLISLE 04/01/2016 Office visit ADRYAN CARLISLE 01/30/2016 Office visit Adryan Burnham MD 01/17/2016 Hospital Adryan Burnham MD 01/09/2016 Office visit [...]
--- OUTSIDE RECORDS SUMMARY | 2018-05-04 08:09 | XMS REPORT ---
Author Author ADRYAN GUTIÉRREZ [facility] Address [address] [place], [place] [address] Care Team Providers Care Refrigeration Technician Name Role Phone ADRYAN GUTIÉRREZ PCP ADRYAN [...] Syringe DIRECTED 06/30/2014 0.5ml 31Guage 8mm 07/17 [facility] escitalopram oxalate 20 mg oral tablet [...] each nostril by intranasal route once daily Name Start Date Expiration Date SIG [...] (18 mcg) by inhalation route once daily [place] 10-325 mg oral tablet 03/10/2015 12/10/2015 take [...] HC BMI BSA BMI Percentile O2 Sat(%) 08/26/2017 9:48:00 AM 124 mmHg 80 mmHg [...] 03/25/2015 12:00 AM Decadron, Per 1 Mg [facility]# [address]-96 Reviewed 03/25/2015 12:00 AM Depo-Medrol, Per 80 Mg [facility]#1855-7298-06 Reviewed 03/25/2015 12:00 AM Rocephin 1 gram [facility]#4060-6271-61 Reviewed 06/16/2015 12:00 AM Decadron, Per 1 Mg [facility]# [address]-48 Reviewed 06/16/2015 12:00 AM Rocephin 1 gram [facility]#8517-2542-74 Reviewed 07/14/2015 12:00 AM Removal impacted cerumen [...] SC/IM Reviewed 04/03/2011 12:00 AM Decadron Inj.1mg-(St.Tr) [facility] #[id number] Reviewed 04/03/2011 12:00 AM Depo-Medrol 80 Mg Im/ Tr [facility] 0009-614115 Reviewed 10/13/2015 12:00 AM Decadron, Per 1 Mg [facility]# [address]-77 Reviewed 10/13/2015 12:00 AM Rocephin 1 gram [facility]#1588-7186-58 Reviewed 07/11/2011 12:00 AM THER/PROPH/DIAG INJ SC/IM Reviewed 07/11/2011 12:00 AM Decadron Inj.1mg-(St.Tr) [facility] #[id number] Reviewed 07/11/2011 12:00 AM Depo-Medrol 80 Mg Im/St Tr [facility] 0009-285458 Reviewed 07/11/2011 12:00 AM Rocephin, Per 250MG - 1 Gram Vial [facility] 2865-536142-Zk Paul Reviewed 04/01/2016 12:00 AM THERAPEUTIC PROPHYLACTIC/DX INJECTION SUBQ/IM Reviewed 04/01/2016 12:00 AM Decadron 8mg Injection, [facility] Medicare Reviewed 06/13/2016 12:00 AM THER/PROPH/DIAG INJ SC/IM Reviewed 06/13/2016 12:00 AM Decadron 8mg Injection, [facility] Medicare Reviewed 06/13/2016 12:00 AM Rocephin 1 gram Injection, [facility] Medicare Reviewed 10/09/2011 12:00 AM ROUTINE VENIPUNCTURE [...] 09/28/2016 12:00 AM Rocephin 1 gram Injection, [facility] Medicare Reviewed 05/20/2009 12:00 AM ROUTINE VENIPUNCTURE Reviewed 05/20/2009 12:00 AM ASSAY OF PSA FREE Reviewed 05/20/2009 12:00 AM ASSAY OF PSA TOTAL Reviewed 01/08/2012 12:00 AM THER/PROPH/DIAG INJ SC/IM Reviewed 01/08/2012 12:00 AM Rocephin 1 gram [facility]#1143-4735-22 Reviewed 01/28/2017 12:00 AM THERAPEUTIC PROPHYLACTIC/DX INJECTION SUBQ/IM Reviewed 01/28/2017 12:00 AM Rocephin 1 gram Injection, [facility] Medicare Reviewed 02/08/2012 12:00 AM Flu Injection 3 Years And Above [facility]# [address]-82 [facility] Reviewed 02/08/2012 12:00 AM PNEUMOCOCCAL VACC 23 EVY IM Reviewed 05/29/2017 12:00 AM THERAPEUTIC PROPHYLACTIC/DX INJECTION SUBQ/IM Reviewed 05/29/2017 12:00 AM Decadron 8mg Injection, [facility] Medicare Reviewed 05/19/2012 12:00 AM THER/PROPH/DIAG INJ SC/IM Reviewed 05/19/2012 12:00 AM Decadron, Per 1 Mg [facility]# [address]-22 Reviewed 05/19/2012 12:00 AM Rocephin 1 gram [facility]#9822-4928-31 Reviewed 06/23/2012 12:00 AM THER/PROPH/DIAG INJ SC/IM Reviewed 06/23/2012 12:00 AM Decadron, Per 1 Mg [facility]# [address]-00 Reviewed 06/23/2012 12:00 AM Depo-Medrol, Per 80 Mg [facility]#2776-7663-85 Reviewed 12/01/2012 12:00 AM THER/PROPH/DIAG INJ SC/IM Reviewed 12/01/2012 12:00 AM Decadron, Per 1 Mg [facility]# [address]-18 Reviewed 12/01/2012 12:00 AM Depo-Medrol, Per 80 Mg [facility]#7711-7761-35 Reviewed 07/11/2009 12:00 AM Toradol 15 Mg,[facility]#0409-272710 Reviewed 01/26/2013 12:00 AM THER/PROPH/DIAG INJ SC/IM Reviewed 01/26/2013 12:00 AM Decadron, Per 1 Mg [facility]# [address]-03 Reviewed 04/17/2013 12:00 AM THER/PROPH/DIAG INJ SC/IM Reviewed 04/17/2013 12:00 AM Decadron, Per 12 Mg [facility]# [address]-29 Reviewed 04/27/2013 12:00 AM THER/PROPH/DIAG INJ SC/IM Reviewed 04/27/2013 12:00 AM Decadron, Per 12 Mg [facility]# [address]-66 Reviewed 04/27/2013 12:00 AM Rocephin 1 gram [facility]#5788-4571-06 Reviewed 05/29/2013 12:00 AM COMPLETE CBC W/AUTO DIFF WBC Reviewed 05/29/2013 12:00 AM COMPREHEN METABOLIC PANEL Reviewed 05/29/2013 12:00 AM GLYCOSYLATED HEMOGLOBIN TEST Reviewed 05/29/2013 12:00 AM LIPID PANEL Reviewed 05/29/2013 12:00 AM ASSAY OF PSA TOTAL Reviewed 05/29/2013 12:00 AM ROUTINE VENIPUNCTURE Reviewed 05/29/2013 12:00 AM THER/PROPH/DIAG INJ SC/IM Reviewed 05/29/2013 12:00 AM Decadron, Per 12 Mg [facility]# [address]-98 Reviewed 02/16/2010 12:00 AM ROUTINE VENIPUNCTURE Reviewed 02/16/2010 12:00 AM METABOLIC PANEL TOTAL CA Reviewed 02/16/2010 12:00 AM GLYCOSYLATED HEMOGLOBIN TEST Reviewed 08/17/2013 12:00 AM THER/PROPH/DIAG INJ SC/IM Reviewed 08/17/2013 12:00 AM Decadron, Per 1 Mg [facility]# [address]-59 Reviewed 08/17/2013 12:00 AM Rocephin 1 gram [place]#3438-6181-55 Reviewed 09/07/2013 12:00 AM THER/PROPH/DIAG INJ SC/IM Reviewed 09/07/2013 12:00 AM Decadron, Per 1 Mg [facility]# [address]-58 Reviewed 09/29/2013 12:00 AM THER/PROPH/DIAG INJ SC/IM Reviewed 09/29/2013 12:00 AM Decadron, Per 1 Mg [facility]# [address]-65 Reviewed 09/29/2013 12:00 AM Rocephin 1 gram [place]#0247-9458-45 Reviewed 12/28/2013 12:00 AM THER/PROPH/DIAG INJ SC/IM Reviewed 12/28/2013 12:00 AM Decadron, Per 1 Mg [facility]# [address]-73 Reviewed 02/17/2014 12:00 AM IMMUNIZATION ADMIN Reviewed 02/17/2014 12:00 AM THER/PROPH/DIAG INJ SC/IM Reviewed 02/17/2014 12:00 AM Decadron, Per 1 Mg NDC# [address]-36 Reviewed 02/17/2014 12:00 AM Depo-Medrol, Per 80 Mg ND#0408-3618-51 Reviewed 02/17/2014 12:00 AM Rocephin 1 gram ND#6843-0554-64 Reviewed 04/06/2014 12:00 AM THER/PROPH/DIAG INJ SC/IM Reviewed 04/06/2014 12:00 AM Rocephin 1 gram NDC#3430-3478-94 Reviewed 05/03/2014 12:00 AM THER/PROPH/DIAG INJ SC/IM Reviewed 05/03/2014 12:00 AM Decadron, Per 1 Mg ND# [address]-06 Reviewed 05/03/2014 12:00 AM Rocephin 1 gram NDC#4505-2386-52 Reviewed 05/31/2014 12:00 AM THER/PROPH/DIAG INJ SC/IM Reviewed 05/31/2014 12:00 AM Decadron, Per 1 Mg [facility]# [address]-56 Reviewed Results Summary Date and Description Results [...] [employer] MSD PNEUMOVAX 23 [id number] Intramuscular Left Deltoid 02/08/2012 06/17/2009 999 Influenza [...] 09 2016 6:35AM Coronary artery disease involving [place] coronary artery of [place] heart without angina pectoris Nov 09 2016 [...] Ear pressure, bilateral Aug 26 2017 9:49AM Payers Insurance Name Company Name Plan Name Plan Number Policy Number Policy Group Number Start Date Medicare [facility] Medicare C [id number] N/A [employer] - [place] State [place] [facility] State Plan [id number] N/A Medicare Part A Medicare - Lab/Xray [id number] N/A [place] Medical Assistance [facility] Medical Assistance Prog [id number] N/A Medicare Part B Medicare Secondary [id number] Sunday, May 02, 2010 Medicare Part A Medicare Part A [id number] N/A [employer] [place] [employer] [place] [id number] N/A History of Encounters Visit Date Visit Type Provider 08/26/2017 Office visit ADRYAN CARLISLE 05/29/2017 Office [...] 01/30/2016 Office visit Adryan Burnham MD 01/17/2016 [facility] Adryan Burnham MD 01/09/2016 Office visit [...] ADRYAN GUTIÉRREZ PA 04/10/2011 Office visit ADRYAN GUITÉRREZ PA 04/03/2011 Office visit ADRYAN GUTIÉRREZ PA [...]
--- OUTSIDE RECORDS SUMMARY | 2018-05-04 08:11 | XMS REPORT ---
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 Ventolin HFA 90 mcg/actuation inhalation HFA aerosol [...] MOUTH ONCE DAILY IN THE THE EVENING fluticasone 50 mcg/actuation nasal spray,suspension 07/19/2016 spray [...] by oral route daily for 90 days Xanax 0.5 mg oral tablet 12/13/2016 take 1 tablet (0.5 mg) by oral route 3 times per day Levaquin 500 mg oral tablet 12/28/2016 take 1 tablet (500 mg) by oral route once daily for 10 days Protonix 40 mg oral tablet,delayed release (DR/EC) 01/22/2017 take 1 tablet (40 mg) by oral route once daily Zithromax Z-Heri 250 mg oral tablet 01/25/2017 01/30/2017 take 2 tablets ( 500 mg) by oral route once daily for 1 day then 1 tablet (250 mg) by oral route once daily for 4 days Name Start Date Expiration Date SIG [...] (18 mcg) by inhalation route once daily Cassandra 10-325 mg oral tablet 03/10/2015 12/10/2015 take [...] HC BMI BSA BMI Percentile O2 Sat(%) 01/28/2017 10:23:00 AM 142 mmHg 80 mmHg [...] Per [address] [facility]# [address]-97 Reviewed 03/25/2015 12:00 AM Depo-Medrol, Per [address] [facility]#9118-8821-49 Reviewed 03/25/2015 12:00 AM Rocephin [address] [facility]#0065-1505-25 Reviewed 06/16/2015 12:00 AM Decadron, Per [address] [facility]# [address]-46 Reviewed 06/16/2015 12:00 AM Rocephin [address] [facility]#7756-7047-25 Reviewed 07/14/2015 12:00 AM Removal impacted cerumen [...] INJ SC/IM Reviewed 04/03/2011 12:00 AM Decadron Inj.1mg-([facility]) [facility] #[id number] Reviewed 04/03/2011 12:00 AM Depo-Medrol 80 Mg Im/ Tr [facility] [id number] Reviewed 10/13/2015 12:00 AM Decadron, Per [address] [facility]# [address]-11 Reviewed 10/13/2015 12:00 AM Rocephin [address] [facility]#1664-7998-01 Reviewed 07/11/2011 12:00 AM THER/PROPH/DIAG INJ SC/IM Reviewed 07/11/2011 12:00 AM Decadron Inj.1mg-([facility]) [facility] #[id number] Reviewed 07/11/2011 12:00 AM Depo-Medrol 80 Mg Im/ Tr [facility] [id number] Reviewed 07/11/2011 12:00 AM Rocephin, Per 250MG - 1 Gram Vial [facility] [id number]-Un Paul Reviewed 04/01/2016 12:00 AM THERAPEUTIC PROPHYLACTIC/DX INJECTION SUBQ/IM Reviewed 04/01/2016 12:00 AM Decadron 8mg Injection, [facility] Medicare Reviewed 06/13/2016 12:00 AM THER/PROPH/DIAG INJ SC/IM Reviewed 06/13/2016 12:00 AM Decadron 8mg Injection, [facility] Medicare Reviewed 06/13/2016 12:00 AM Rocephin 1 gram Injection, [facility] Medicare Reviewed 10/09/2011 12:00 AM ROUTINE [...] Rocephin [address] [facility]#1737-9599-33 Reviewed 01/28/2017 12:00 AM THERAPEUTIC PROPHYLACTIC/DX INJECTION SUBQ/IM Reviewed 01/28/2017 12:00 AM Rocephin 1 gram Injection, [facility] Medicare Reviewed 02/08/2012 12:00 AM Flu Injection 3 Years And [address] [facility]# [address]-63 [facility] Reviewed 02/08/2012 12:00 AM PNEUMOCOCCAL VACC 23 EVY IM Reviewed 05/19/2012 12:00 AM THER/PROPH/DIAG INJ SC/IM Reviewed 05/19/2012 12:00 AM Decadron, Per [address] [facility]# [address]-56 Reviewed 05/19/2012 12:00 AM Rocephin [address] [facility]#9204-8302-46 Reviewed 06/23/2012 12:00 AM THER/PROPH/DIAG INJ SC/IM Reviewed 06/23/2012 12:00 AM Decadron, Per [address] [facility]# [address]-28 Reviewed 06/23/2012 12:00 AM Depo-Medrol, Per [address] [facility]#2723-7619-48 Reviewed 12/01/2012 12:00 AM THER/PROPH/DIAG INJ SC/IM Reviewed 12/01/2012 12:00 AM Decadron, Per [address] [facility]# [address]-82 Reviewed 12/01/2012 12:00 AM Depo-Medrol, Per [address] [facility]#2037-5209-80 Reviewed 07/11/2009 12:00 AM Toradol 15 Mg,[facility]#0409-486824 Reviewed 01/26/2013 12:00 AM THER/PROPH/DIAG INJ SC/IM Reviewed 01/26/2013 12:00 AM Decadron, Per [address] [facility]# [address]-75 Reviewed 04/17/2013 12:00 AM THER/PROPH/DIAG INJ SC/IM Reviewed 04/17/2013 12:00 AM Decadron, Per [address] [facility]# [address]-34 Reviewed 04/27/2013 12:00 AM THER/PROPH/DIAG INJ SC/IM Reviewed 04/27/2013 12:00 AM Decadron, Per [address] [facility]# [address]-14 Reviewed 04/27/2013 12:00 AM Rocephin [address] [facility]#5107-4682-12 Reviewed 05/29/2013 12:00 AM COMPLETE CBC W/AUTO DIFF WBC Reviewed 05/29/2013 12:00 AM COMPREHEN METABOLIC PANEL Reviewed 05/29/2013 12:00 AM GLYCOSYLATED HEMOGLOBIN TEST Reviewed 05/29/2013 12:00 AM LIPID PANEL Reviewed 05/29/2013 12:00 AM ASSAY OF PSA TOTAL Reviewed 05/29/2013 12:00 AM ROUTINE VENIPUNCTURE Reviewed 05/29/2013 12:00 AM THER/PROPH/DIAG INJ SC/IM Reviewed 05/29/2013 12:00 AM Decadron, Per [address] [facility]# [address]-52 Reviewed 02/16/2010 12:00 AM ROUTINE VENIPUNCTURE Reviewed 02/16/2010 12:00 AM METABOLIC PANEL TOTAL CA Reviewed 02/16/2010 12:00 AM GLYCOSYLATED HEMOGLOBIN TEST Reviewed 08/17/2013 12:00 AM THER/PROPH/DIAG INJ SC/IM Reviewed 08/17/2013 12:00 AM Decadron, Per [address] [facility]# [address]-04 Reviewed 08/17/2013 12:00 AM Rocephin [address] [facility]#9335-1751-51 Reviewed 09/07/2013 12:00 AM THER/PROPH/DIAG INJ SC/IM Reviewed 09/07/2013 12:00 AM Decadron, Per [address] [facility]# [address]-80 Reviewed 09/29/2013 12:00 AM THER/PROPH/DIAG INJ SC/IM Reviewed 09/29/2013 12:00 AM Decadron, Per [address] [facility]# [address]-29 Reviewed 09/29/2013 12:00 AM Rocephin 1 gram [place]#0177-4579-40 Reviewed 12/28/2013 12:00 AM THER/PROPH/DIAG INJ SC/IM Reviewed 12/28/2013 12:00 AM Decadron, Per 1 Mg [place]# [address]-54 Reviewed 02/17/2014 12:00 AM IMMUNIZATION ADMIN Reviewed 02/17/2014 12:00 AM THER/PROPH/DIAG INJ SC/IM Reviewed 02/17/2014 12:00 AM Decadron, Per 1 Mg [place]# [address]-72 Reviewed 02/17/2014 12:00 AM Depo-Medrol, Per 80 Mg [place]#6886-7128-43 Reviewed 02/17/2014 12:00 AM Rocephin [address] [facility]#2846-9015-16 Reviewed 04/06/2014 12:00 AM THER/PROPH/DIAG INJ SC/IM Reviewed 04/06/2014 12:00 AM Rocephin 1 gram [place]#8472-7907-05 Reviewed 05/03/2014 12:00 AM THER/PROPH/DIAG INJ SC/IM Reviewed 05/03/2014 12:00 AM Decadron, Per 1 Mg ND# [address]-45 Reviewed 05/03/2014 12:00 AM Rocephin [address] [facility]#1250-3794-69 Reviewed 05/31/2014 12:00 AM THER/PROPH/DIAG INJ SC/IM Reviewed 05/31/2014 12:00 AM Decadron, Per [address] [facility]# [address]-38 Reviewed Results Summary Date and Description Results [...] [employer] MSD Pneumovax 23 [id number] Intramuscular Left Deltoid 02/08/2012 06/17/2009 999 Influenza [...] (chronic obstructive pulmonary disease) with acute bronchitis Feb 3 2015 10:14AM Chronic pain Apr 06 2014 10:14AM [...] 09 2016 6:35AM Coronary artery disease involving quileute coronary artery of quileute heart without angina pectoris Nov 09 2016 6:35AM Moderate Acute Recurrent Chest congestion Improving Jan 28 2017 10:24AM Sinus pressure Jan 28 2017 10:24AM Chronic obstructive pulmonary disease with acute lower respiratory infection Jan 28 2017 10:24AM Acute bronchitis, unspecified Jan 28 2017 10:24AM Productive cough Jan 28 2017 10:24AM Payers Insurance Name Company Name Plan Name Plan Number Policy Number Policy Group Number Start Date Medicare RHC Medicare RHC [id number] N/A [employer] - [place] State [place] [employer] - [place] State Plan [id number] N/A Medicare Part A Medicare - Lab/Xray [id number] N/A [place] [employer] [place] Prog [id number] N/A Medicare Part B Medicare Secondary [id number] Sunday, May 02, 2010 Medicare Part A Medicare Part A [id number] N/A [employer] [place] [facility] Plan [facility] [id number] N/A History of Encounters Visit Date Visit Type Provider 01/28/2017 Office visit ADRYAN CARLISLE 11/07/2016 Office [...] 01/30/2016 Office visit Adryan Burnham MD 01/17/2016 [facility] Adryan Burnham MD 01/09/2016 Office visit [...]
--- OUTSIDE RECORDS SUMMARY | 2018-05-04 08:12 | XMS REPORT ---
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 Name Role Phone ADRYAN GUTIÉRREZ PCP Unavailable [...] DIRECTED 06/30/2014 0.5ml 31Guage 8mm 07/17 [facility] simvastatin 20 mg oral tablet 09/24/2014 TAKE [...] - E11.65 Percocet 10-325 mg oral tablet 05/04/2016 take 1 tablet by oral route every 6 hours as needed Bactrim DS 800-160 mg oral tablet 05/04/2016 05/14/2016 take 1 tablet by oral route 2 times a day for 10 days Bactroban 2 % topical cream 05/04/2016 apply a small amount to the affected area by topical route 3 times per day hydroxyzine HCl 25 mg oral tablet 05/04/2016 take 2 tablet at HS for itching Name Start Date Expiration Date SIG Comments [...] by nasal route 2 times a day Levaquin 500 mg oral tablet 04/02/2016 04/12/2016 [...] an interval of 6 to 8 hours [place] 10-325 mg oral tablet 03/10/2015 12/10/2015 take [...] HC BMI BSA BMI Percentile O2 Sat(%) 05/04/2016 11:21:00 AM 108 mmHg 70 mmHg [...] 1 Mg [facility]# [address]-01 Reviewed 03/25/2015 12:00 AM Depo-Medrol, Per 80 Mg [facility]#0272-1929-52 Reviewed 03/25/2015 12:00 AM Rocephin 1 gram [facility]#4640-7352-39 Reviewed 06/16/2015 12:00 AM Decadron, Per 1 Mg [facility]# [address]-94 Reviewed 06/16/2015 12:00 AM Rocephin 1 gram [facility]#7817-5918-35 Reviewed 07/14/2015 12:00 AM Removal impacted cerumen [...] Reviewed 04/03/2011 12:00 AM Decadron Inj.1mg-([facility]) [facility] #[id number] Reviewed 04/03/2011 12:00 AM Depo-Medrol 80 Mg Im/St Tr [facility] 0009-184713 Reviewed 10/13/2015 12:00 AM Decadron, Per 1 Mg [facility]# [address]-11 Reviewed 10/13/2015 12:00 AM Rocephin 1 gram [facility]#9282-6589-25 Reviewed 07/11/2011 12:00 AM THER/PROPH/DIAG INJ SC/IM Reviewed 07/11/2011 12:00 AM Decadron Inj.1mg-([facility]) [facility] #[id number] Reviewed 07/11/2011 12:00 AM Depo-Medrol 80 Mg Im/St Tr [facility] 0009-161569 Reviewed 07/11/2011 12:00 AM Rocephin, Per 250MG - 1 Gram Vial [facility] 1534-773083-Qn Tr Reviewed 04/01/2016 12:00 AM THERAPEUTIC PROPHYLACTIC/DX [...] Rocephin 1 gram [facility]#2444-5662-74 Reviewed 02/08/2012 12:00 AM Flu Injection 3 Years And Above [facility]# [address]-16 [facility] Reviewed 02/08/2012 12:00 AM PNEUMOCOCCAL VACC 23 EVY IM Reviewed 05/19/2012 12:00 AM THER/PROPH/DIAG INJ SC/IM Reviewed 05/19/2012 12:00 AM Decadron, Per 1 Mg [facility]# [address]-96 Reviewed 05/19/2012 12:00 AM Rocephin 1 gram [facility]#5544-5041-11 Reviewed 06/23/2012 12:00 AM THER/PROPH/DIAG INJ SC/IM Reviewed 06/23/2012 12:00 AM Decadron, Per 1 Mg [facility]# [address]-38 Reviewed 06/23/2012 12:00 AM Depo-Medrol, Per 80 Mg [facility]#7149-9714-80 Reviewed 12/01/2012 12:00 AM THER/PROPH/DIAG INJ SC/IM Reviewed 12/01/2012 12:00 AM Decadron, Per 1 Mg [facility]# [address]-82 Reviewed 12/01/2012 12:00 AM Depo-Medrol, Per 80 Mg [facility]#5363-4822-72 Reviewed 07/11/2009 12:00 AM Toradol 15 Mg,[facility]#0409-217750 Reviewed 01/26/2013 12:00 AM THER/PROPH/DIAG INJ SC/IM Reviewed 01/26/2013 12:00 AM Decadron, Per 1 Mg [facility]# [address]-25 Reviewed 04/17/2013 12:00 AM THER/PROPH/DIAG INJ SC/IM Reviewed 04/17/2013 12:00 AM Decadron, Per 12 Mg [facility]# [address]-59 Reviewed 04/27/2013 12:00 AM THER/PROPH/DIAG INJ SC/IM Reviewed 04/27/2013 12:00 AM Decadron, Per 12 Mg [facility]# [address]-49 Reviewed 04/27/2013 12:00 AM Rocephin 1 gram [facility]#2360-4930-68 Reviewed 05/29/2013 12:00 AM COMPLETE CBC W/AUTO DIFF WBC Reviewed 05/29/2013 12:00 AM COMPREHEN METABOLIC PANEL Reviewed 05/29/2013 12:00 AM GLYCOSYLATED HEMOGLOBIN TEST Reviewed 05/29/2013 12:00 AM LIPID PANEL Reviewed 05/29/2013 12:00 AM ASSAY OF PSA TOTAL Reviewed 05/29/2013 12:00 AM ROUTINE VENIPUNCTURE Reviewed 05/29/2013 12:00 AM THER/PROPH/DIAG INJ SC/IM Reviewed 05/29/2013 12:00 AM Decadron, Per 12 Mg [facility]# [address]-89 Reviewed 02/16/2010 12:00 AM ROUTINE VENIPUNCTURE Reviewed 02/16/2010 12:00 AM METABOLIC PANEL TOTAL CA Reviewed 02/16/2010 12:00 AM GLYCOSYLATED HEMOGLOBIN TEST Reviewed 08/17/2013 12:00 AM THER/PROPH/DIAG INJ SC/IM Reviewed 08/17/2013 12:00 AM Decadron, Per 1 Mg [facility]# [address]-20 Reviewed 08/17/2013 12:00 AM Rocephin 1 gram [facility]#1325-5595-30 Reviewed 09/07/2013 12:00 AM THER/PROPH/DIAG INJ SC/IM Reviewed 09/07/2013 12:00 AM Decadron, Per 1 Mg [facility]# [address]-97 Reviewed 09/29/2013 12:00 AM THER/PROPH/DIAG INJ SC/IM Reviewed 09/29/2013 12:00 AM Decadron, Per 1 Mg [facility]# [address]-41 Reviewed 09/29/2013 12:00 AM Rocephin 1 gram [facility]#5016-2788-01 Reviewed 12/28/2013 12:00 AM THER/PROPH/DIAG INJ SC/IM Reviewed 12/28/2013 12:00 AM Decadron, Per 1 Mg [place]# [address]-95 Reviewed 02/17/2014 12:00 AM IMMUNIZATION ADMIN Reviewed 02/17/2014 12:00 AM THER/PROPH/DIAG INJ SC/IM Reviewed 02/17/2014 12:00 AM Decadron, Per 1 Mg [place]# [address]-57 Reviewed 02/17/2014 12:00 AM Depo-Medrol, Per 80 Mg [facility]#2736-4297-55 Reviewed 02/17/2014 12:00 AM Rocephin 1 gram [facility]#0963-5461-03 Reviewed 04/06/2014 12:00 AM THER/PROPH/DIAG INJ SC/IM Reviewed 04/06/2014 12:00 AM Rocephin 1 gram [facility]#4339-7248-98 Reviewed 05/03/2014 12:00 AM THER/PROPH/DIAG INJ SC/IM Reviewed 05/03/2014 12:00 AM Decadron, Per 1 Mg [facility]# [address]-95 Reviewed 05/03/2014 12:00 AM Rocephin 1 gram [facility]#7410-1267-96 Reviewed 05/31/2014 12:00 AM THER/PROPH/DIAG INJ SC/IM Reviewed 05/31/2014 12:00 AM Decadron, Per 1 Mg [facility]# [address]-37 Reviewed Results Summary Data and Description Results [...] 5.16 HGB 15.70 g/dLHCT 46.90 %MCV 91.0 [facility] 30.40 pgHC 33.50 g/dLRDW SD 46 RDW CV 14.0 [...] [employer] MSD Pneumovax 23 [id number] Intramuscular Left Deltoid 02/08/2012 06/17/2009 999 Influenza [...] Recurrent Pediculosis corporis May 04 2016 11:22AM Payers Insurance Name Company Name Plan Name Plan Number Policy Number Policy Group Number Start Date Medicare RHC Medicare RHC [id number] N/A [facility] - [place] State Plan [facility] State Plan [id number] N/A Medicare Part A Medicare - Lab/Xray [id number] N/A [place] [employer] [place] [employer] [place] Prog [id number] N/A Medicare Part B Medicare Secondary [id number] Sunday, May 02, 2010 Medicare Part A Medicare Part A [id number] N/A [employer] [place] State Plan [facility] [id number] N/A History of Encounters Visit Date Visit Type Provider 05/04/2016 Office visit ADRYAN CARLISLE 04/01/2016 Office [...] ADRYAN GUTIÉRREZ PA 12/01/2012 Office visit ADRYAN CARLISLE 06/23/2012 Office visit ADRYAN GUTIÉRREZ PA 05/19/2012 [...] visit ADRYAN GUTIÉRREZ PA 01/18/2011 Office visit ADRYNA GUTIÉRREZ PA 08/07/2010 Office visit Adryan Gutiérrez [...]
--- OUTSIDE RECORDS SUMMARY | 2018-05-04 08:14 | XMS REPORT ---
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 Name Role Phone ADRYAN GUTIÉRREZ PCP Unavailable ADRYAN GUTIÉRREZ PreferredProvider Unavailable Allergies and Adverse Reactions Name Reaction Notes NO KNOWN DRUG ALLERGIES Plan of Treatment Planned Activity Comments Planned Date Planned Time Plan/Goal Injection, Subcutaneous/IM 06/13/2016 12:00 AM Hgb A1c 12/08/2013 12:00 AM [...] 06/30/2014 0.5ml 31Guage 8mm 07/17 [facility] simvastatin 20 mg oral tablet 09/24/2014 [...] (18 mcg) by inhalation route once daily [place] 10-325 mg oral tablet 03/10/2015 12/10/2015 take [...] 1 Mg [facility]# [address]-38 Reviewed 03/25/2015 12:00 AM Depo-Medrol, Per 80 Mg [facility]#1611-0897-65 Reviewed 03/25/2015 12:00 AM Rocephin 1 gram [facility]#2900-1362-65 Reviewed 06/16/2015 12:00 AM Decadron, Per 1 Mg [facility]# [address]-90 Reviewed 06/16/2015 12:00 AM Rocephin 1 gram [facility]#7434-3289-14 Reviewed 07/14/2015 12:00 AM Removal impacted cerumen [...] Reviewed 04/03/2011 12:00 AM Decadron Inj.1mg-([facility]) [facility] #[id number] Reviewed 04/03/2011 12:00 AM Depo-Medrol 80 Mg Im/St Tr [facility] 0009-708966 Reviewed 10/13/2015 12:00 AM Decadron, Per 1 Mg [facility]# [address]-33 Reviewed 10/13/2015 12:00 AM Rocephin 1 gram [facility]#6282-2374-76 Reviewed 07/11/2011 12:00 AM THER/PROPH/DIAG INJ SC/IM Reviewed 07/11/2011 12:00 AM Decadron Inj.1mg-([facility]) [facility] #[id number] Reviewed 07/11/2011 12:00 AM Depo-Medrol 80 Mg Im/St Tr [facility] 0009-370087 Reviewed 07/11/2011 12:00 AM Rocephin, Per 250MG - 1 Gram Vial [facility] 2693-523226-Px Paul Reviewed 04/01/2016 12:00 AM THERAPEUTIC PROPHYLACTIC/DX [...] Rocephin 1 gram [facility]#3955-0347-02 Reviewed 02/08/2012 12:00 AM Flu Injection 3 Years And Above [facility]# [address]-04 [facility] Reviewed 02/08/2012 12:00 AM PNEUMOCOCCAL VACC 23 EVY IM Reviewed 05/19/2012 12:00 AM THER/PROPH/DIAG INJ SC/IM Reviewed 05/19/2012 12:00 AM Decadron, Per 1 Mg [facility]# [address]-32 Reviewed 05/19/2012 12:00 AM Rocephin 1 gram [facility]#8316-9341-04 Reviewed 06/23/2012 12:00 AM THER/PROPH/DIAG INJ SC/IM Reviewed 06/23/2012 12:00 AM Decadron, Per 1 Mg [facility]# [address]-76 Reviewed 06/23/2012 12:00 AM Depo-Medrol, Per 80 Mg [facility]#8095-0602-87 Reviewed 12/01/2012 12:00 AM THER/PROPH/DIAG INJ SC/IM Reviewed 12/01/2012 12:00 AM Decadron, Per 1 Mg [facility]# [address]-79 Reviewed 12/01/2012 12:00 AM Depo-Medrol, Per 80 Mg [facility]#3655-2694-56 Reviewed 07/11/2009 12:00 AM Toradol 15 Mg,[facility]#0409-696376 Reviewed 01/26/2013 12:00 AM THER/PROPH/DIAG INJ SC/IM Reviewed 01/26/2013 12:00 AM Decadron, Per 1 Mg [facility]# [address]-15 Reviewed 04/17/2013 12:00 AM THER/PROPH/DIAG INJ SC/IM Reviewed 04/17/2013 12:00 AM Decadron, Per 12 Mg [facility]# [address]-76 Reviewed 04/27/2013 12:00 AM THER/PROPH/DIAG INJ SC/IM Reviewed 04/27/2013 12:00 AM Decadron, Per 12 Mg [facility]# [address]-93 Reviewed 04/27/2013 12:00 AM Rocephin 1 gram [facility]#9854-4805-28 Reviewed 05/29/2013 12:00 AM COMPLETE CBC W/AUTO DIFF WBC Reviewed 05/29/2013 12:00 AM COMPREHEN METABOLIC PANEL Reviewed 05/29/2013 12:00 AM GLYCOSYLATED HEMOGLOBIN TEST Reviewed 05/29/2013 12:00 AM LIPID PANEL Reviewed 05/29/2013 12:00 AM ASSAY OF PSA TOTAL Reviewed 05/29/2013 12:00 AM ROUTINE VENIPUNCTURE Reviewed 05/29/2013 12:00 AM THER/PROPH/DIAG INJ SC/IM Reviewed 05/29/2013 12:00 AM Decadron, Per 12 Mg [facility]# [address]-30 Reviewed 02/16/2010 12:00 AM ROUTINE VENIPUNCTURE Reviewed 02/16/2010 12:00 AM METABOLIC PANEL TOTAL CA Reviewed 02/16/2010 12:00 AM GLYCOSYLATED HEMOGLOBIN TEST Reviewed 08/17/2013 12:00 AM THER/PROPH/DIAG INJ SC/IM Reviewed 08/17/2013 12:00 AM Decadron, Per 1 Mg [facility]# [address]-48 Reviewed 08/17/2013 12:00 AM Rocephin 1 gram [place]#6928-3969-07 Reviewed 09/07/2013 12:00 AM THER/PROPH/DIAG INJ SC/IM Reviewed 09/07/2013 12:00 AM Decadron, Per 1 Mg [facility]# [address]-52 Reviewed 09/29/2013 12:00 AM THER/PROPH/DIAG INJ SC/IM Reviewed 09/29/2013 12:00 AM Decadron, Per 1 Mg [facility]# [address]-70 Reviewed 09/29/2013 12:00 AM Rocephin 1 gram [facility]#5059-5468-15 Reviewed 12/28/2013 12:00 AM THER/PROPH/DIAG INJ SC/IM Reviewed 12/28/2013 12:00 AM Decadron, Per 1 Mg [facility]# [address]-27 Reviewed 02/17/2014 12:00 AM IMMUNIZATION ADMIN Reviewed 02/17/2014 12:00 AM THER/PROPH/DIAG INJ SC/IM Reviewed 02/17/2014 12:00 AM Decadron, Per 1 Mg [facility]# [address]-85 Reviewed 02/17/2014 12:00 AM Depo-Medrol, Per 80 Mg [facility]#3935-3740-00 Reviewed 02/17/2014 12:00 AM Rocephin 1 gram [facility]#8337-6188-93 Reviewed 04/06/2014 12:00 AM THER/PROPH/DIAG INJ SC/IM Reviewed 04/06/2014 12:00 AM Rocephin 1 gram [facility]#4444-8640-28 Reviewed 05/03/2014 12:00 AM THER/PROPH/DIAG INJ SC/IM Reviewed 05/03/2014 12:00 AM Decadron, Per 1 Mg [facility]# [address]-22 Reviewed 05/03/2014 12:00 AM Rocephin 1 gram [facility]#9563-4067-91 Reviewed 05/31/2014 12:00 AM THER/PROPH/DIAG INJ SC/IM Reviewed 05/31/2014 12:00 AM Samantha, Per 1 Mg [facility]# [address]-31 Reviewed Results Summary Data and Description Results [...] Vis Given Vis Pub CVX X 02/08/2012 [employer] MSD Pneumovax 23 [id number] Intramuscular Left Deltoid 02/08/2012 06/17/2009 999 Influenza [...] Acute Sinus pressure Jun 13 2016 1:05PM Payers Insurance Name Company Name Plan Name Plan Number Policy Number Policy Group Number Start Date Medicare RHC Medicare RHC [id number] N/A [employer] [place] [employer] [place] [id number] N/A Medicare Part A Medicare - Lab/Xray [id number] N/A [place] [employer] [place] [employer] [place] [id number] N/A Medicare Part B Medicare Secondary [id number] Sunday, May 02, 2010 Medicare Part A Medicare Part A [id number] N/A [employer] [place] [employer] [place] [id number] N/A History of Encounters Visit Date Visit Type Provider 06/18/2016 Office visit ADRYAN CARLISLE 06/13/2016 Office visit ADRYAN CARLISLE 05/04/2016 Office visit ADRYAN CARLISLE 04/01/2016 Office visit ADRYAN CARLISLE 01/30/2016 Office visit Adryan Burnham MD 01/17/2016 [facility] Adryan Burnham MD 01/09/2016 Office [...]
--- OUTSIDE RECORDS SUMMARY | 2018-05-04 08:16 | XMS REPORT ---
Author Author ADRYAN GUTIÉRREZ [facility] Address [address] [place], [place] [id number] Care Team Providers Care Vp Of Technology Name Role Phone ADRYAN GUTIÉRREZ PCP Unavailable [...] 0.5ml 31Guage 8mm 07/17 [facility] simvastatin 20 mg oral tablet 09/24/2014 [...] times a day for 30 days Zithromax Z-Ehri 250 mg oral tablet 03/10/2015 03/15/2015 take [...] (18 mcg) by inhalation route once daily [place] 10-325 mg oral tablet 03/10/2015 12/10/2015 take [...] HC BMI BSA BMI Percentile O2 Sat(%) 09/28/2016 9:56:00 AM 132 mmHg 80 mmHg 80 bpm 16 rpm 97.7 F 258 lbs 72 in 34.99 kg/m2 2.44 m2 95 % 09/27/2016 5:13:00 PM 126 mmHg 84 mmHg 78 bpm 16 rpm 97.4 F 258 lbs 72 in 34.9907 kg/m 2.4382 m 96 % 06/18/2016 1:13:00 PM [...] 03/25/2015 12:00 AM Decadron, Per 1 Mg [facility]# [address]-76 Reviewed 03/25/2015 12:00 AM Depo-Medrol, Per 80 Mg [facility]#6391-1470-49 Reviewed 03/25/2015 12:00 AM Rocephin 1 gram [facility] 2001#3037-4220-62 Reviewed 06/16/2015 12:00 AM Decadron, Per 1 Mg [facility]# [address]-96 Reviewed 06/16/2015 12:00 AM Rocephin 1 gram [facility] 2001#0043-4421-54 Reviewed 07/14/2015 12:00 AM Removal impacted cerumen [...] SC/IM Reviewed 04/03/2011 12:00 AM Decadron Inj.1mg-([facility].Tr) [facility] #[id number] Reviewed 04/03/2011 12:00 AM Depo-Medrol 80 Mg Im/St Tr [facility] 2001 0009-134456 Reviewed 10/13/2015 12:00 AM Decadron, Per 1 Mg [facility]# [address]-05 Reviewed 10/13/2015 12:00 AM Rocephin 1 gram [facility] 2001#7281-5478-35 Reviewed 07/11/2011 12:00 AM THER/PROPH/DIAG INJ SC/IM Reviewed 07/11/2011 12:00 AM Decadron Inj.1mg-([facility].Tr) [facility] #[id number] Reviewed 07/11/2011 12:00 AM Depo-Medrol 80 Mg Im/St Tr [facility] 2001 0009-796997 Reviewed 07/11/2011 12:00 AM Rocephin, Per 250MG - 1 Gram Vial [facility] 0030-696752-Mh Paul Reviewed 04/01/2016 12:00 AM THERAPEUTIC PROPHYLACTIC/DX INJECTION SUBQ/IM Reviewed 04/01/2016 12:00 AM Decadron 8mg Injection, [facility] Medicare Reviewed 06/13/2016 12:00 AM THER/PROPH/DIAG INJ SC/IM Reviewed 06/13/2016 12:00 AM Decadron 8mg Injection, [facility] Medicare Reviewed 06/13/2016 12:00 AM Rocephin 1 gram Injection, [facility] Medicare Reviewed 10/09/2011 12:00 AM ROUTINE [...] Reviewed 01/08/2012 12:00 AM Rocephin 1 gram [facility] 2001#6522-3191-83 Reviewed 02/08/2012 12:00 AM Flu Injection 3 Years And Above [facility] 2001# [address]-35 [facility] Reviewed 02/08/2012 12:00 AM PNEUMOCOCCAL VACC 23 EVY IM Reviewed 05/19/2012 12:00 AM THER/PROPH/DIAG INJ SC/IM Reviewed 05/19/2012 12:00 AM Decadron, Per 1 Mg [facility]# [address]-17 Reviewed 05/19/2012 12:00 AM Rocephin 1 gram [facility] 2001#5853-5423-80 Reviewed 06/23/2012 12:00 AM THER/PROPH/DIAG INJ SC/IM Reviewed 06/23/2012 12:00 AM Decadron, Per 1 Mg [facility]# [address]-75 Reviewed 06/23/2012 12:00 AM Depo-Medrol, Per 80 Mg [facility] 2001#5548-3976-99 Reviewed 12/01/2012 12:00 AM THER/PROPH/DIAG INJ SC/IM Reviewed 12/01/2012 12:00 AM Decadron, Per 1 Mg [facility]# [address]-13 Reviewed 12/01/2012 12:00 AM Depo-Medrol, Per 80 Mg [facility] 2001#0600-2583-82 Reviewed 07/11/2009 12:00 AM Toradol 15 Mg,[facility]#0409-093344 Reviewed 01/26/2013 12:00 AM THER/PROPH/DIAG INJ SC/IM Reviewed 01/26/2013 12:00 AM Decadron, Per 1 Mg [facility]# [address]-24 Reviewed 04/17/2013 12:00 AM THER/PROPH/DIAG INJ SC/IM Reviewed 04/17/2013 12:00 AM Decadron, Per 12 Mg [facility]# [address]-06 Reviewed 04/27/2013 12:00 AM THER/PROPH/DIAG INJ SC/IM Reviewed 04/27/2013 12:00 AM Decadron, Per 12 Mg [facility]# [address]-02 Reviewed 04/27/2013 12:00 AM Rocephin 1 gram [facility] 2001#5936-0377-10 Reviewed 05/29/2013 12:00 AM COMPLETE CBC W/AUTO DIFF WBC Reviewed 05/29/2013 12:00 AM COMPREHEN METABOLIC PANEL Reviewed 05/29/2013 12:00 AM GLYCOSYLATED HEMOGLOBIN TEST Reviewed 05/29/2013 12:00 AM LIPID PANEL Reviewed 05/29/2013 12:00 AM ASSAY OF PSA TOTAL Reviewed 05/29/2013 12:00 AM ROUTINE VENIPUNCTURE Reviewed 05/29/2013 12:00 AM THER/PROPH/DIAG INJ SC/IM Reviewed 05/29/2013 12:00 AM Decadron, Per 12 Mg [facility]# [address]-63 Reviewed 02/16/2010 12:00 AM ROUTINE VENIPUNCTURE Reviewed 02/16/2010 12:00 AM METABOLIC PANEL TOTAL CA Reviewed 02/16/2010 12:00 AM GLYCOSYLATED HEMOGLOBIN TEST Reviewed 08/17/2013 12:00 AM THER/PROPH/DIAG INJ SC/IM Reviewed 08/17/2013 12:00 AM Decadron, Per 1 Mg ND# [address]-90 Reviewed 08/17/2013 12:00 AM Rocephin 1 gram ND#7190-1824-04 Reviewed 09/07/2013 12:00 AM THER/PROPH/DIAG INJ SC/IM Reviewed 09/07/2013 12:00 AM Decadron, Per 1 Mg NDC# [address]-31 Reviewed 09/29/2013 12:00 AM THER/PROPH/DIAG INJ SC/IM Reviewed 09/29/2013 12:00 AM Decadron, Per 1 Mg NDC# [address]-16 Reviewed 09/29/2013 12:00 AM Rocephin 1 gram [facility] 2001#5657-5011-97 Reviewed 12/28/2013 12:00 AM THER/PROPH/DIAG INJ SC/IM Reviewed 12/28/2013 12:00 AM Decadron, Per 1 Mg [facility]# [address]-84 Reviewed 02/17/2014 12:00 AM IMMUNIZATION ADMIN Reviewed 02/17/2014 12:00 AM THER/PROPH/DIAG INJ SC/IM Reviewed 02/17/2014 12:00 AM Decadron, Per 1 Mg [facility]# [address]-21 Reviewed 02/17/2014 12:00 AM Depo-Medrol, Per 80 Mg [facility] 2001#3119-7940-96 Reviewed 02/17/2014 12:00 AM Rocephin 1 gram [facility] 2001#3779-1395-48 Reviewed 04/06/2014 12:00 AM THER/PROPH/DIAG INJ SC/IM Reviewed 04/06/2014 12:00 AM Rocephin 1 gram NDC#0302-6560-96 Reviewed 05/03/2014 12:00 AM THER/PROPH/DIAG INJ SC/IM Reviewed 05/03/2014 12:00 AM Decadron, Per 1 Mg [facility]# [address]-19 Reviewed 05/03/2014 12:00 AM Rocephin 1 gram ND#3768-8238-89 Reviewed 05/31/2014 12:00 AM THER/PROPH/DIAG INJ SC/IM Reviewed 05/31/2014 12:00 AM Decadron, Per 1 Mg [facility]# [address]-18 Reviewed Results Summary Date and Description Results [...] [employer] MSD Pneumovax 23 [id number] Intramuscular Left Deltoid 02/08/2012 06/17/2009 999 Influenza [...] 9:57AM Sinus pressure Sep 28 2016 9:57AM Payers Insurance Name Company Name Plan Name Plan Number Policy Number Policy Group Number Start Date Medicare RHC Medicare RHC [id number] N/A [employer] - [place] State [place] [employer] - [place] State Plan [id number] N/A Medicare Part A Medicare - Lab/Xray [id number] N/A [place] [employer] [place] [employer] Prog [id number] N/A Medicare Part B Medicare Secondary [id number] Sunday, May 02, 2010 Medicare Part A Medicare Part A [id number] N/A [employer] [place] [facility] Plan [facility] [id number] N/A History of Encounters Visit Date Visit Type Provider 09/28/2016 Office visit ADRYAN CARLISLE 09/27/2016 Office [...] Office visit ADRYAN CARLISLE 06/11/2014 Office visit ADYRAN CARLISLE 05/31/2014 Office visit 05/31/2014 Office visit [...] visit Adryan Gutiérrez PA-C 07/11/2009 Office visit Ardyan Gutiérrez PA-C 05/20/2009 Laboratory Adryan Gutiérrez PA-C 02/28/2009 Office visit Adryan Gutiérrez PA-C 02/22/2009 Office visit Adryan Gutiérrez PA-C 02/17/2009 Laboratory Geo Wallace MD 12/17/2008 Laboratory Adryan Gutiérrez PA-C
--- OUTSIDE RECORDS SUMMARY | 2018-05-04 08:18 | XMS REPORT ---
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 Role Phone ADRYAN GUTIÉRREZ PCP [...] 0.5ml 31Guage 8mm 07/17 [facility] simvastatin 20 mg oral tablet 09/24/2014 TAKE [...] by topical route 3 times per day Symbicort 160-4.5 mcg/actuation inhalation HFA aerosol inhaler [...] (18 mcg) by inhalation route once daily [place] 10-325 mg oral tablet 03/10/2015 12/10/2015 take [...] HC BMI BSA BMI Percentile O2 Sat(%) 10/16/2016 1:01:00 PM 118 mmHg 74 mmHg [...] 03/25/2015 12:00 AM Decadron, Per 1 Mg [facility]# [address]-52 Reviewed 03/25/2015 12:00 AM Depo-Medrol, Per 80 Mg [facility]#1919-7688-24 Reviewed 03/25/2015 12:00 AM Rocephin 1 gram [facility]#1973-4717-83 Reviewed 06/16/2015 12:00 AM Decadron, Per 1 Mg [facility]# [address]-42 Reviewed 06/16/2015 12:00 AM Rocephin 1 gram [facility]#5765-7226-80 Reviewed 07/14/2015 12:00 AM Removal impacted cerumen [...] SC/IM Reviewed 04/03/2011 12:00 AM Decadron Inj.1mg-(St.Tr) [facility] #[id number] Reviewed 04/03/2011 12:00 AM Depo-Medrol 80 Mg Im/St Tr [facility] 0009-716540 Reviewed 10/13/2015 12:00 AM Decadron, Per 1 Mg [facility]# [address]-31 Reviewed 10/13/2015 12:00 AM Rocephin 1 gram [facility]#4804-7792-20 Reviewed 07/11/2011 12:00 AM THER/PROPH/DIAG INJ SC/IM Reviewed 07/11/2011 12:00 AM Decadron Inj.1mg-(St.Tr) [facility] #[id number] Reviewed 07/11/2011 12:00 AM Depo-Medrol 80 Mg Im/St Tr [facility] 0009-107814 Reviewed 07/11/2011 12:00 AM Rocephin, Per 250MG - 1 Gram Vial [facility] 6383-058186-Kl Paul Reviewed 04/01/2016 12:00 AM THERAPEUTIC PROPHYLACTIC/DX [...] 09/28/2016 12:00 AM Rocephin 1 gram Injection, [facility] Medicare Reviewed 05/20/2009 12:00 AM ROUTINE VENIPUNCTURE Reviewed 05/20/2009 12:00 AM ASSAY OF PSA FREE Reviewed 05/20/2009 12:00 AM ASSAY OF PSA TOTAL Reviewed 01/08/2012 12:00 AM THER/PROPH/DIAG INJ SC/IM Reviewed 01/08/2012 12:00 AM Rocephin 1 gram [facility]#8468-2411-72 Reviewed 02/08/2012 12:00 AM Flu Injection 3 Years And Above [facility]# [address]-31 [facility] Reviewed 02/08/2012 12:00 AM PNEUMOCOCCAL VACC 23 EVY IM Reviewed 05/19/2012 12:00 AM THER/PROPH/DIAG INJ SC/IM Reviewed 05/19/2012 12:00 AM Decadron, Per 1 Mg [facility]# [address]-16 Reviewed 05/19/2012 12:00 AM Rocephin 1 gram [facility]#6158-1672-18 Reviewed 06/23/2012 12:00 AM THER/PROPH/DIAG INJ SC/IM Reviewed 06/23/2012 12:00 AM Decadron, Per 1 Mg [facility]# [address]-69 Reviewed 06/23/2012 12:00 AM Depo-Medrol, Per 80 Mg [facility]#5156-9427-09 Reviewed 12/01/2012 12:00 AM THER/PROPH/DIAG INJ SC/IM Reviewed 12/01/2012 12:00 AM Decadron, Per 1 Mg [facility]# [address]-93 Reviewed 12/01/2012 12:00 AM Depo-Medrol, Per 80 Mg [facility]#0539-7273-34 Reviewed 07/11/2009 12:00 AM Toradol 15 Mg,[facility]#0409-312162 Reviewed 01/26/2013 12:00 AM THER/PROPH/DIAG INJ SC/IM Reviewed 01/26/2013 12:00 AM Decadron, Per 1 Mg [facility]# [address]-33 Reviewed 04/17/2013 12:00 AM THER/PROPH/DIAG INJ SC/IM Reviewed 04/17/2013 12:00 AM Decadron, Per 12 Mg [facility]# [address]-03 Reviewed 04/27/2013 12:00 AM THER/PROPH/DIAG INJ SC/IM Reviewed 04/27/2013 12:00 AM Decadron, Per 12 Mg [facility]# [address]-80 Reviewed 04/27/2013 12:00 AM Rocephin 1 gram [facility]#8908-6202-86 Reviewed 05/29/2013 12:00 AM COMPLETE CBC W/AUTO DIFF WBC Reviewed 05/29/2013 12:00 AM COMPREHEN METABOLIC PANEL Reviewed 05/29/2013 12:00 AM GLYCOSYLATED HEMOGLOBIN TEST Reviewed 05/29/2013 12:00 AM LIPID PANEL Reviewed 05/29/2013 12:00 AM ASSAY OF PSA TOTAL Reviewed 05/29/2013 12:00 AM ROUTINE VENIPUNCTURE Reviewed 05/29/2013 12:00 AM THER/PROPH/DIAG INJ SC/IM Reviewed 05/29/2013 12:00 AM Decadron, Per 12 Mg [facility]# [address]-88 Reviewed 02/16/2010 12:00 AM ROUTINE VENIPUNCTURE Reviewed 02/16/2010 12:00 AM METABOLIC PANEL TOTAL CA Reviewed 02/16/2010 12:00 AM GLYCOSYLATED HEMOGLOBIN TEST Reviewed 08/17/2013 12:00 AM THER/PROPH/DIAG INJ SC/IM Reviewed 08/17/2013 12:00 AM Decadron, Per 1 Mg [facility]# [address]-23 Reviewed 08/17/2013 12:00 AM Rocephin 1 gram [facility]#2615-2503-23 Reviewed 09/07/2013 12:00 AM THER/PROPH/DIAG INJ SC/IM Reviewed 09/07/2013 12:00 AM Decadron, Per 1 Mg [facility]# [address]-46 Reviewed 09/29/2013 12:00 AM THER/PROPH/DIAG INJ SC/IM Reviewed 09/29/2013 12:00 AM Decadron, Per 1 Mg [facility]# [address]-11 Reviewed 09/29/2013 12:00 AM Rocephin 1 gram [facility]#9498-3993-85 Reviewed 12/28/2013 12:00 AM THER/PROPH/DIAG INJ SC/IM Reviewed 12/28/2013 12:00 AM Decadron, Per 1 Mg [facility]# [address]-61 Reviewed 02/17/2014 12:00 AM IMMUNIZATION ADMIN Reviewed 02/17/2014 12:00 AM THER/PROPH/DIAG INJ SC/IM Reviewed 02/17/2014 12:00 AM Decadron, Per 1 Mg [facility]# [address]-02 Reviewed 02/17/2014 12:00 AM Depo-Medrol, Per 80 Mg [facility]#0254-6908-48 Reviewed 02/17/2014 12:00 AM Rocephin 1 gram [facility]#2030-2833-26 Reviewed 04/06/2014 12:00 AM THER/PROPH/DIAG INJ SC/IM Reviewed 04/06/2014 12:00 AM Rocephin 1 gram [place]#9673-2778-77 Reviewed 05/03/2014 12:00 AM THER/PROPH/DIAG INJ SC/IM Reviewed 05/03/2014 12:00 AM Decadron, Per 1 Mg [facility]# [address]-19 Reviewed 05/03/2014 12:00 AM Rocephin 1 gram [facility]#9776-0616-49 Reviewed 05/31/2014 12:00 AM THER/PROPH/DIAG INJ SC/IM Reviewed 05/31/2014 12:00 AM Decadron, Per 1 Mg [facility]# [address]-24 Reviewed Results Summary Date and Description Results [...] Of Immunizations Name Date Admin Mfg Name Mf Code Trade Name Lot# Route Inj Vis Given Vis Pub CVX X 02/08/2012 [employer] MSD Pneumovax 23 [id number] Intramuscular Left Deltoid 02/08/2012 06/17/2009 999 Influenza [...] Stress at home Oct 16 2016 1:03PM Payers Insurance Name Company Name Plan Name Plan Number Policy Number Policy Group Number Start Date Medicare [facility] Medicare [facility] [id number] N/A [facility] [place] State [place] [facility] State Plan [id number] N/A Medicare Part A Medicare - Lab/Xray [id number] N/A [place] [employer] [place] [employer] Prog [id number] N/A Medicare Part B Medicare Secondary [id number] Sunday, May 02, 2010 Medicare Part A Medicare Part A [id number] N/A [facility] State Plan [id number] N/A History of Encounters Visit Date Visit Type Provider 10/16/2016 Office visit ADRYAN CARLISLE 10/08/2016 Office visit ADRYAN CARLISLE 10/03/2016 Office visit ADRYAN CARLISLE 10/01/2016 Office visit ADRYAN GUTIÉRREZ PA 09/28/2016 Office visit ADRYAN GUTIÉRREZ PA 09/27/2016 Office visit ADRYAN GUTIÉRREZ PA 06/18/2016 Office visit ADRYAN GUTIÉRREZ PA 06/13/2016 Office visit ADRYAN GUTIÉRREZ PA 05/04/2016 Office visit ADRYAN GUTIÉRREZ PA 04/01/2016 Office visit ADRYAN CARLISLE 01/30/2016 Office visit Adryan Burnham MD 01/17/2016 [facility] Adryan Burnham MD 01/09/2016 Office [...]
--- OUTSIDE RECORDS SUMMARY | 2018-05-04 08:20 | XMS REPORT ---
Author Author ADRYAN GUTIÉRREZ [facility] Address [address] [place], [place] [address] Care Team Providers Care College Specialist Name Role Phone ADRYAN GUTIÉRREZ PCP ADRYAN GUTIÉRREZ PreferredProvider Allergies and Adverse Reactions Name Reaction Notes NO KNOWN DRUG ALLERGIES Plan of Treatment Planned Activity Comments Planned Date Planned Time Plan/Goal Injection,Subcutaneous/Intramuscul, [facility] Medicare 05/29/2017 12:00 AM Hgb A1c 12/08/2013 12:00 AM [...] Syringe DIRECTED 06/30/2014 0.5ml 31Guage 8mm 07/17 [facility] simvastatin 20 mg oral tablet 09/24/2014 TAKE [...] by oral route 3 times per day Protonix 40 mg oral tablet,delayed release (DR/EC) [...] used in Small Volume Nebulizer QID PRN Levaquin 500 mg oral tablet 05/29/2017 06/08/2017 take 1 tablet (500 mg) by oral [...] (18 mcg) by inhalation route once daily [place] 10-325 mg oral tablet 03/10/2015 12/10/2015 take [...] HC BMI BSA BMI Percentile O2 Sat(%) 05/29/2017 1:44:00 PM 142 mmHg 80 mmHg [...] 03/25/2015 12:00 AM Decadron, Per 1 Mg [facility]# [address]-38 Reviewed 03/25/2015 12:00 AM Depo-Medrol, Per 80 Mg [facility]#4839-7763-03 Reviewed 03/25/2015 12:00 AM Rocephin 1 gram [facility]#4290-4004-32 Reviewed 06/16/2015 12:00 AM Decadron, Per 1 Mg [facility]# [address]-47 Reviewed 06/16/2015 12:00 AM Rocephin 1 gram [facility]#4308-8681-15 Reviewed 07/14/2015 12:00 AM Removal impacted cerumen [...] SC/IM Reviewed 04/03/2011 12:00 AM Decadron Inj.1mg-([facility]) [facility] #[id number] Reviewed 04/03/2011 12:00 AM Depo-Medrol 80 Mg Im/St Tr [facility] 0009-210218 Reviewed 10/13/2015 12:00 AM Decadron, Per 1 Mg [facility]# [address]-15 Reviewed 10/13/2015 12:00 AM Rocephin 1 gram [facility]#7083-9679-82 Reviewed 07/11/2011 12:00 AM THER/PROPH/DIAG INJ SC/IM Reviewed 07/11/2011 12:00 AM Decadron Inj.1mg-([facility]) [facility] #[id number] Reviewed 07/11/2011 12:00 AM Depo-Medrol 80 Mg Im/St Tr [facility] 0009-425805 Reviewed 07/11/2011 12:00 AM Rocephin, Per 250MG - 1 Gram Vial [facility] 0718-325037-Ls Tr Reviewed 04/01/2016 12:00 AM THERAPEUTIC PROPHYLACTIC/DX [...] Reviewed 01/08/2012 12:00 AM Rocephin 1 gram [facility]#2041-8973-28 Reviewed 01/28/2017 12:00 AM THERAPEUTIC PROPHYLACTIC/DX INJECTION SUBQ/IM Reviewed 01/28/2017 12:00 AM Rocephin 1 gram Injection, [facility] Medicare Reviewed 02/08/2012 12:00 AM Flu Injection 3 Years And Above [facility]# [address]-75 [facility] Reviewed 02/08/2012 12:00 AM PNEUMOCOCCAL VACC 23 EVY IM Reviewed 05/19/2012 12:00 AM THER/PROPH/DIAG INJ SC/IM Reviewed 05/19/2012 12:00 AM Decadron, Per 1 Mg [facility]# [address]-58 Reviewed 05/19/2012 12:00 AM Rocephin 1 gram [facility]#0742-6454-24 Reviewed 06/23/2012 12:00 AM THER/PROPH/DIAG INJ SC/IM Reviewed 06/23/2012 12:00 AM Decadron, Per 1 Mg [facility]# [address]-01 Reviewed 06/23/2012 12:00 AM Depo-Medrol, Per 80 Mg [facility]#4156-5999-97 Reviewed 12/01/2012 12:00 AM THER/PROPH/DIAG INJ SC/IM Reviewed 12/01/2012 12:00 AM Decadron, Per 1 Mg [facility]# [address]-31 Reviewed 12/01/2012 12:00 AM Depo-Medrol, Per 80 Mg [facility]#1084-5126-01 Reviewed 07/11/2009 12:00 AM Toradol 15 Mg,[facility]#0409-961409 Reviewed 01/26/2013 12:00 AM THER/PROPH/DIAG INJ SC/IM Reviewed 01/26/2013 12:00 AM Decadron, Per 1 Mg [facility]# [address]-98 Reviewed 04/17/2013 12:00 AM THER/PROPH/DIAG INJ SC/IM Reviewed 04/17/2013 12:00 AM Decadron, Per 12 Mg [facility]# [address]-97 Reviewed 04/27/2013 12:00 AM THER/PROPH/DIAG INJ SC/IM Reviewed 04/27/2013 12:00 AM Decadron, Per 12 Mg [facility]# [address]-10 Reviewed 04/27/2013 12:00 AM Rocephin 1 gram [facility]#6343-0644-43 Reviewed 05/29/2013 12:00 AM COMPLETE CBC W/AUTO DIFF WBC Reviewed 05/29/2013 12:00 AM COMPREHEN METABOLIC PANEL Reviewed 05/29/2013 12:00 AM GLYCOSYLATED HEMOGLOBIN TEST Reviewed 05/29/2013 12:00 AM LIPID PANEL Reviewed 05/29/2013 12:00 AM ASSAY OF PSA TOTAL Reviewed 05/29/2013 12:00 AM ROUTINE VENIPUNCTURE Reviewed 05/29/2013 12:00 AM THER/PROPH/DIAG INJ SC/IM Reviewed 05/29/2013 12:00 AM Decadron, Per 12 Mg [facility]# [address]-41 Reviewed 02/16/2010 12:00 AM ROUTINE VENIPUNCTURE Reviewed 02/16/2010 12:00 AM METABOLIC PANEL TOTAL CA Reviewed 02/16/2010 12:00 AM GLYCOSYLATED HEMOGLOBIN TEST Reviewed 08/17/2013 12:00 AM THER/PROPH/DIAG INJ SC/IM Reviewed 08/17/2013 12:00 AM Decadron, Per 1 Mg [facility]# [address]-70 Reviewed 08/17/2013 12:00 AM Rocephin 1 gram [place]#4497-3480-43 Reviewed 09/07/2013 12:00 AM THER/PROPH/DIAG INJ SC/IM Reviewed 09/07/2013 12:00 AM Decadron, Per 1 Mg [facility]# [address]-99 Reviewed 09/29/2013 12:00 AM THER/PROPH/DIAG INJ SC/IM Reviewed 09/29/2013 12:00 AM Decadron, Per 1 Mg [facility]# [address]-23 Reviewed 09/29/2013 12:00 AM Rocephin 1 gram [place]#2834-8862-55 Reviewed 12/28/2013 12:00 AM THER/PROPH/DIAG INJ SC/IM Reviewed 12/28/2013 12:00 AM Decadron, Per 1 Mg [facility]# [address]-18 Reviewed 02/17/2014 12:00 AM IMMUNIZATION ADMIN Reviewed 02/17/2014 12:00 AM THER/PROPH/DIAG INJ SC/IM Reviewed 02/17/2014 12:00 AM Decadron, Per 1 Mg [facility]# [address]-16 Reviewed 02/17/2014 12:00 AM Depo-Medrol, Per 80 Mg [place]#8120-7927-59 Reviewed 02/17/2014 12:00 AM Rocephin 1 gram ND#2293-0168-32 Reviewed 04/06/2014 12:00 AM THER/PROPH/DIAG INJ SC/IM Reviewed 04/06/2014 12:00 AM Rocephin 1 gram NDC#6109-8133-81 Reviewed 05/03/2014 12:00 AM THER/PROPH/DIAG INJ SC/IM Reviewed 05/03/2014 12:00 AM Decadron, Per 1 Mg ND# [address]-22 Reviewed 05/03/2014 12:00 AM Rocephin 1 gram NDC#5448-2349-09 Reviewed 05/31/2014 12:00 AM THER/PROPH/DIAG INJ SC/IM Reviewed 05/31/2014 12:00 AM Decadron, Per 1 Mg NDC# [address]-37 Reviewed Results Summary Date and Description Results [...] [employer] MSD Pneumovax 23 [id number] Intramuscular Left Deltoid 02/08/2012 06/17/2009 999 Influenza [...] Apr 10 2011 9:57AM Coronary Artery Disease b 2011 [...] 09 2016 6:35AM Coronary artery disease involving tangirnaq coronary artery of tangirnaq heart without angina pectoris Nov 09 2016 [...] pain without sciatica May 29 2017 1:45PM Payers Insurance Name Company Name Plan Name Plan Number Policy Number Policy Group Number Start Date Medicare [facility] Medicare RHC [id number] N/A [employer] - [place] [employer] [place] [id number] N/A Medicare Part A Medicare - Lab/Xray [id number] N/A [place] [facility] [employer] [facility] [place] [employer] [facility] [id number] N/A Medicare Part B Medicare Secondary [id number] Sunday, May 02, 2010 Medicare Part A Medicare Part A [id number] N/A [employer] [place] Plan [employer] [facility] [id number] N/A History of Encounters Visit Date Visit Type Provider 05/29/2017 Office visit ADRYAN GUTIÉRREZ PA 01/28/2017 Office visit ADRYAN GUTIÉRREZ PA 11/07/2016 Office visit ADRYAN GUTIÉRREZ PA 10/16/2016 Office visit ADRYAN GUTIÉRREZ PA 10/08/2016 [...] visit Adryan Burnham MD 01/17/2016 [facility] Adryan Burnham MD 01/09/2016 Office visit [...]
--- OUTSIDE RECORDS SUMMARY | 2018-05-04 08:21 | XMS REPORT ---
Author ADRYAN Montenegro [facility] Address [address] [place], [place] [id number] Care Team Providers Care Coal Weigher Name Role Phone ADRYAN GUTIÉRREZ PCP Unavailable [...] Syringe DIRECTED 06/30/2014 0.5ml 31Guage 8mm 07/17 [facility] simvastatin 20 mg oral tablet 09/24/2014 TAKE ONE TABLET BY MOUTH ONCE DAILY IN THE THE EVENING escitalopram oxalate 20 mg oral tablet 12/16/2014 TAKE 1 TABLET BY MOUTH DAILY Xanax 0.5 mg oral tablet 02/03/2015 08/02/2015 take 1 tablet by oral route 3 times a day for 30 days [place] 10-325 mg oral tablet 03/10/2015 take 1 [...] 12:00 AM Decadron, Per [address] [facility]# [address]-71 Reviewed 03/25/2015 12:00 AM Depo-Medrol, Per [address] [facility]#1573-1582-75 Reviewed 03/25/2015 12:00 AM Rocephin [address] [facility]#5162-9129-50 Reviewed 06/16/2015 12:00 AM Decadron, Per [address] [facility]# [address]-34 Reviewed 06/16/2015 12:00 AM Rocephin [address] [facility]#9814-9098-95 Reviewed 07/14/2015 12:00 AM Removal impacted cerumen [...] Reviewed 04/03/2011 12:00 AM Decadron Inj.1mg-(St.Tr) [facility] #[id number] Reviewed 04/03/2011 12:00 AM Depo-Medrol 80 Mg Im/St Tr [facility] [id number] Reviewed 07/11/2011 12:00 AM THER/PROPH/DIAG INJ SC/IM Reviewed 07/11/2011 12:00 AM Decadron Inj.1mg-(St.Tr) [facility] #[id number] Reviewed 07/11/2011 12:00 AM Depo-Medrol 80 Mg Im/St Tr [facility] [id number] Reviewed 07/11/2011 12:00 AM Rocephin, Per 250MG - 1 Gram Vial [facility] [id number]-Hi Paul Reviewed 10/09/2011 12:00 AM ROUTINE VENIPUNCTURE [...] 01/08/2012 12:00 AM Rocephin [address] [facility]#3491-8818-53 Reviewed 02/08/2012 12:00 AM Flu Injection 3 Years And Above [facility]# [address]-36 C Reviewed 02/08/2012 12:00 AM PNEUMOCOCCAL VACC 23 EVY IM Reviewed 05/19/2012 12:00 AM THER/PROPH/DIAG INJ SC/IM Reviewed 05/19/2012 12:00 AM Decadron, Per [address] [facility]# [address]-93 Reviewed 05/19/2012 12:00 AM Rocephin [address] [facility]#7821-7053-36 Reviewed 06/23/2012 12:00 AM THER/PROPH/DIAG INJ SC/IM Reviewed 06/23/2012 12:00 AM Decadron, Per [address] [facility]# [address]-00 Reviewed 06/23/2012 12:00 AM Depo-Medrol, Per [address] [facility]#3505-3958-34 Reviewed 12/01/2012 12:00 AM THER/PROPH/DIAG INJ SC/IM Reviewed 12/01/2012 12:00 AM Decadron, Per [address] [facility]# [address]-05 Reviewed 12/01/2012 12:00 AM Depo-Medrol, Per [address] [facility]#4759-4402-49 Reviewed 07/11/2009 12:00 AM Toradol 15 Mg,[facility]#[id number] Reviewed 01/26/2013 12:00 AM THER/PROPH/DIAG INJ SC/IM Reviewed 01/26/2013 12:00 AM Decadron, Per [address] [facility]# [address]-51 Reviewed 04/17/2013 12:00 AM THER/PROPH/DIAG INJ SC/IM Reviewed 04/17/2013 12:00 AM Decadron, Per [address] [facility]# [address]-42 Reviewed 04/27/2013 12:00 AM THER/PROPH/DIAG INJ SC/IM Reviewed 04/27/2013 12:00 AM Decadron, Per [address] [facility]# [address]-97 Reviewed 04/27/2013 12:00 AM Rocephin [address] [facility]#9720-7512-24 Reviewed 05/29/2013 12:00 AM COMPLETE CBC W/AUTO DIFF WBC Reviewed 05/29/2013 12:00 AM COMPREHEN METABOLIC PANEL Reviewed 05/29/2013 12:00 AM GLYCOSYLATED HEMOGLOBIN TEST Reviewed 05/29/2013 12:00 AM LIPID PANEL Reviewed 05/29/2013 12:00 AM ASSAY OF PSA TOTAL Reviewed 05/29/2013 12:00 AM ROUTINE VENIPUNCTURE Reviewed 05/29/2013 12:00 AM THER/PROPH/DIAG INJ SC/IM Reviewed 05/29/2013 12:00 AM Decadron, Per [address] [facility]# [address]-78 Reviewed 02/16/2010 12:00 AM ROUTINE VENIPUNCTURE Reviewed 02/16/2010 12:00 AM METABOLIC PANEL TOTAL CA Reviewed 02/16/2010 12:00 AM GLYCOSYLATED HEMOGLOBIN TEST Reviewed 08/17/2013 12:00 AM THER/PROPH/DIAG INJ SC/IM Reviewed 08/17/2013 12:00 AM Decadron, Per [address] [facility]# [address]-87 Reviewed 08/17/2013 12:00 AM Rocephin [address] [facility]#6684-9396-12 Reviewed 09/07/2013 12:00 AM THER/PROPH/DIAG INJ SC/IM Reviewed 09/07/2013 12:00 AM Decadron, Per [address] [facility]# [address]-87 Reviewed 09/29/2013 12:00 AM THER/PROPH/DIAG INJ SC/IM Reviewed 09/29/2013 12:00 AM Decadron, Per [address] [facility]# [address]-07 Reviewed 09/29/2013 12:00 AM Rocephin [address] [facility]#8952-8720-07 Reviewed 12/28/2013 12:00 AM THER/PROPH/DIAG INJ SC/IM Reviewed 12/28/2013 12:00 AM Decadron, Per [address] [facility]# [address]-36 Reviewed 02/17/2014 12:00 AM IMMUNIZATION ADMIN Reviewed 02/17/2014 12:00 AM THER/PROPH/DIAG INJ SC/IM Reviewed 02/17/2014 12:00 AM Decadron, Per [address] [facility]# [address]-74 Reviewed 02/17/2014 12:00 AM Depo-Medrol, Per [address] [facility]#0195-4868-61 Reviewed 02/17/2014 12:00 AM Rocephin [address] [facility]#5172-1494-13 Reviewed 04/06/2014 12:00 AM THER/PROPH/DIAG INJ SC/IM Reviewed 04/06/2014 12:00 AM Rocephin [address] [facility]#6879-7008-39 Reviewed 05/03/2014 12:00 AM THER/PROPH/DIAG INJ SC/IM Reviewed 05/03/2014 12:00 AM Decadron, Per [address] [facility]# [address]-91 Reviewed 05/03/2014 12:00 AM Rocephin [address] [facility]#8186-9600-83 Reviewed 05/31/2014 12:00 AM THER/PROPH/DIAG INJ SC/IM Reviewed 05/31/2014 12:00 AM Decadron, Per [address] [facility]# [address]-26 Reviewed Results Summary Data and Description Results [...] BILI 0.80 mg/dLCALCIUM 9.60 mg/dLeGFR >60 mL/min/1.73 [id number] 132.0 mg/dLCHOLESTEROL 109.0 mg/ dLHDL 32.0 mg/dLLDL [...] [employer] MSD Pneumovax 23 [id number] Intramuscular Left Deltoid 02/08/2012 06/17/2009 999 Influenza [...] 11:35AM Cerumen Impaction Jul 25 2015 8:13AM Payers Insurance Name Company Name Plan Name Plan Number Policy Number Policy Group Number Start Date Medicare Part A Medicare RH [id number] N/A [employer] - [place] [employer] - [place] [id number] N/A Medicare Part A Medicare - Lab/Xray [id number] N/A [place] [employer] [place] [employer] [place] [id number] N/A Medicare Part B Medicare Secondary [id number] Sunday, May 02, 2010 Medicare Part A Medicare Part A [id number] N/A History of Encounters Visit Date Visit [...] visit ADRYAN CARLISLE 04/27/2013 Office visit ADRYAN CARLISLE 04/17/2013 Office visit ADRYAN CARLISLE 03/30/2013 Office visit ADRYAN CARLISLE 01/26/2013 Office visit ADRYAN CARLISLE 12/01/2012 Office visit ADRYAN CARLISLE 06/23/2012 Office visit ADRYAN CARLISLE 05/19/2012 Office visit ADRYAN GUTIÉRREZ PA 02/08/2012 [...]
--- OUTSIDE RECORDS SUMMARY | 2018-05-04 08:23 | XMS REPORT | Continuity of Care Document ---
Author Author [facility] Organization [facility] Address Unknown Phone Unavailable Allergies Active Description Code Type Severity Reaction Onset Reported/Identified Relationship to Patient Clinical Status Yes No Known Allergies [id number] N /A N/A Yes NO KNOWN DRUG ALLERGIES UNKNOWN NO KNOWN DRUG ALLERG Yes No Known Drug Allergies [id number] Drug Allergy Unknown N/A 09/26/2009 Medications Medication Packaging Start Date Stop Date Route Dosage Sig ACETAMINOPHEN ORAL TABLET 325mg(Tylenol) MG 10/02/2016 10/02/2016 PRN ONCE KETOROLAC VIAL INJ 15 MG/CC (TORADOL VIAL) MG 10/02/2016 10/02/2016 ONCE&0939 BENZONATATE CAP 100 MG (TESSALON) MG 10/02/2016 10/02/2016 ONCE&0943 GUAIFENESIN - DM LIQ (ROBITUSSIN DM) ml 10/02/2016 10/02/2016 PRN ONCE NORMAL SALINE 500CC IV BAG INJ 0.9 % (NS 500CC IV BAG) ml 10/02/2016 10/02/2016 ONCE&1005 ONDANSETRON VIAL INJ 4 MG/2CC (ZOFRAN 2CC VIAL) MG 10/02/2016 10/02/2016 ONCE&1009 Problems Date Dx Coded Attending Type Code Diagnosis Diagnosed By 07/29/2015 Adryan Gutiérrez 715.30 OSTEOARTHROSIS, LOCALIZED, NOT SPECIFIED WHETHER PRIMARY OR SECONDARY, INVOLVING UNSPECIFIED SITE 07/29/2015 Adryan Gutiérrez M19.90 UNSPECIFIED OSTEOARTHRITIS, UNSPECIFIED SITE 10/02/2016 Fabio Del Rosario 250.00 DIABETES MELLITUS WITHOUT MENTION OF COMPLICATION, TYPE II OR UNSPECIFIED TYPE, NOT STATED UNCONTROLLED 10/02/2016 Fabio Del Rosario 401.0 MALIGNANT ESSENTIAL HYPERTENSION 10/02/2016 Fabio Del Rosario 427.31 ATRIAL FIBRILLATION 10/02/2016 Fabio Del Rosario 458.29 10/02/2016 Fabio Del Rosario 466.0 10/02/2016 Fabio Del Rosario 668.81 10/02/2016 Fabio Del Rosario 780.60 FEVER, UNSPECIFIED 10/02/2016 Fabio Del Rosario 780.79 10/02/2016 Fabio Del Rosario 784.0 10/02/2016 Fabio Del Rosario 995.29 10/02/2016 Fabio Del Rosario E11.9 TYPE 2 DIABETES MELLITUS WITHOUT COMPLICATIONS 10/02/2016 Fabio Del Rosario I10 ESSENTIAL (PRIMARY) HYPERTENSION 10/02/2016 Fabio Del Rosario I48.91 UNSPECIFIED ATRIAL FIBRILLATION 10/02/2016 Fabio Del Rosario I95.2 HYPOTENSION DUE TO DRUGS 10/02/2016 Fabio Del Rosario J20.9 ACUTE BRONCHITIS, UNSPECIFIED 10/02/2016 Fabio Del Rosario R50.9 FEVER, UNSPECIFIED 10/02/2016 Fabio Del Rosario R51 HEADACHE 10/02/2016 Fabio Del Rosario R53.83 OTHER FATIGUE 10/02/2016 Fabio Del Rosario T36.8X5A ADVERSE EFFECT OF OTHER SYSTEMIC ANTIBIOTICS, INIT ENCNTR 04/30/2018 UBALDO RAMOS, BEBO Lima Ot Z01.818 ENCOUNTER FOR OTHER PREPROCEDURAL EXAMIN Procedures There is no data. Results Test Result Range Urinalysis - 10/02/16 08:48 Icotest Negative Negative Urine Casts Hyaline Urine Volume Urine Volume Sufficient (10mL) Urine Yeast No Yeast present Urine-Appearance Clear Clear Urine-Bacteria Negative Urine-Bilirubin 1+ Negative Urine-Blood Negative Negative Urine-Color Yellow Colorless-Lt. Yellow Urine-Glucose Trace Negative Urine-Ketones Trace Negative Urine-Leukocytes Negative Negative Urine-Mucus 2+ Urine-Nitrite Negative Negative Urine-Other Urine Saved if Culture Needed (48hrs from time of collection) Urine-pH 5.5 5-8.5 Urine-Protein 1+ Negative Urine-RBC Negative Urine-Specific [place] >=1.030 1.000-1.030 Urine-WBC Negative Urobilinogen 1.0 E.U./dL 0.2-1.0 Comprehensive Metabolic Panel - 10/02/16 09:15 Albumin 3.5 g/dL 3.6-5.1 ALP 95 U/L 35-130 ALT 44 U/L 6-45 Anion Gap 19 6-14 AST 39 U/L 2-40 BUN 17 mg/dL 5-25 Calcium 9.0 mg/dL 8.3-10.4 Chloride 99 mmol/L 95-114 CO2 22 mEq/L 22-33 Creat 1.47 mg/dL 0.50-1.50 eGFR 47 mL/min/1.73m2 >59 Globulin 2.7 g/dL 2.3-3.5 Glucose 269 mg/dL 70-110 Osmo 291 280-295 Potassium 3.8 mmol/L 3.5-5.3 Sodium 136 mmol/L 134-148 TBil 0.8 mg/dL 0.2-1.2 TP 6.2 g/dL 6.0-8.3 Cardiac Panel - 10/02/16 09:15 CK 64 U/L 26-174 CK-MB 0.8 ng/ml 0.0-9.2 Myoglobin 91.3 ng/ml 1.6-154.9 Troponin <0.020 ng/mL 0.0-0.4 Blood Culture - 10/02/16 09:15 PRELIM CULTURE RESULTS Blood Culture Negative, No Growth Day 1 FINAL CULTURE RESULTS Blood Culture Negative, No Growth Day 5 MEDIA PLATED Setup at 09:27 on 10/02/2016 Blood Culture Media Position C-45 CULTURE SOURCE Right AC Sputum Culture - 10/02/16 09:15 PRELIM CULTURE RESULTS Further Testing Pending FINAL CULTURE RESULTS NO Pathogens Isolated MEDIA PLATED Setup at 09:34 on 10/02/2016 Blood Culture - 10/02/16 12:41 PRELIM CULTURE RESULTS Blood Culture Negative, No Growth Day 1 FINAL CULTURE RESULTS Blood Culture Negative, No Growth Day 5 MEDIA PLATED Setup at 12:45 on 10/02/2016 Blood Culture Media Position C-41 CULTURE SOURCE right AC Capillary blood glucose measurement by glucometer (mass/volume) - 05/02/18 07: 17 Capillary blood glucose measurement by glucometer (mass/volume) 281 mg/dL 70-110 Encounters ACCT No. Visit Date/Time Discharge Status Pt. Type Provider Facility Loc./Unit Complaint [id number] 04/14/2018 11:44:43 04/14/2018 23:59:59 CLS Outpatient ADRYAN GUTIÉRREZ [id number] 12/20/2017 16:46:19 12/20/2017 23:59:59 CLS Outpatient ADRYAN GUTIÉRREZ [id number] 10/29/2017 09:04:04 10/29/2017 23:59:59 CLS Outpatient BROCK, ADRYAN Bustos [id number] 09/10/2017 09:47:17 09/10/2017 23:59:59 CLS Outpatient BROCK, ADRYAN Bustos [id number] 08/26/2017 10:08:33 08/26/2017 23:59:59 CLS Outpatient BROCK, ADRYAN Bustos [id number] 05/29/2017 09:53:42 05/29/2017 23:59:59 CLS Outpatient BROCK, ADRYAN Bustos [id number] 01/28/2017 09:55:35 01/28/2017 23:59:59 CLS Outpatient BROCK, ADRYAN Bustos [id number] 11/07/2016 10:30:30 11/07/2016 23:59:59 CLS Outpatient BROCK, ADRYAN Juli [id number] 10/16/2016 10:47:32 10/16/2016 23:59:59 CLS Outpatient BROCK, ADRYAN Juli [id number] 10/15/2016 12:10:40 10/15/2016 23:59:59 CLS Outpatient BROCK, ADRYAN Juli [id number] 10/03/2016 08:43:51 10/03/2016 23:59:59 CLS Outpatient BROCK, ADRYAN Juli [id number] 09/28/2016 08:18:05 09/28/2016 23:59:59 CLS Outpatient BROCK, ADRYAN Juli [id number] 09/27/2016 11:20:39 09/27/2016 23:59:59 CLS Outpatient BROCK, ADRYAN Juli [id number] 09/14/2016 11:01:18 09/14/2016 23:59:59 CLS Outpatient BROCK, ADRYAN Juli [id number] 06/18/2016 11:14:37 06/18/2016 23:59:59 CLS Outpatient BROCK, ADRYAN Juli [id number] 06/13/2016 10:01:56 06/13/2016 23:59:59 CLS Outpatient BROCK, ADRYAN Juli [id number] 05/04/2016 10:36:55 05/04/2016 23:59:59 CLS Outpatient BROCK, ADRYAN Juli [id number] 04/02/2016 07:51:06 04/02/2016 23:59:59 CLS Outpatient BROCK, ADRYAN Juli [id number] 01/30/2016 14:23:54 01/30/2016 23:59:59 CLS Outpatient [place] Adryan [id number] 01/29/2016 13:10:36 01/29/2016 23:59:59 [id number] 12/09/2015 10:18:53 12/09/2015 23:59:59 CLS Outpatient BROCK, ADRYAN Bustos [id number] 10/13/2015 10:59:05 10/13/2015 23:59:59 CLS Outpatient BROCKADRYAN [id number] 03/10/2015 10:51:16 03/10/2015 23:59:59 CLS Outpatient BROCK, ADRYAN Bustos [id number] 11/26/2014 10:32:42 11/26/2014 23:59:59 CLS Outpatient BROCKADRYAN [id number] 10/11/2014 21:50:32 10/11/2014 23:59:59 CLS Outpatient BROCK, ADRYAN Bustos [id number] 06/16/2014 10:58:15 06/16/2014 23:59:59 CLS Outpatient BROCKADRYAN [id number] 06/11/2014 10:42:44 06/11/2014 23:59:59 CLS Outpatient BROCK, ADRYAN Bustos [id number] 05/31/2014 10:47:24 05/31/2014 23:59:59 CLS Outpatient BROCKADRYAN [id number] 04/06/2014 11:05:51 04/06/2014 23:59:59 CLS Outpatient BROCKADRYAN [id number] 02/17/2014 10:40:44 02/17/2014 23:59:59 CLS Outpatient BROCKADRYAN [id number] 12/28/2013 10:44:37 12/28/2013 23:59:59 CLS Outpatient BROCKADRYAN Juli [id number] 10/30/2013 10:50:54 10/30/2013 23:59:59 CLS Outpatient BROCKADRYAN [id number] 09/29/2013 11:27:31 09/29/2013 23:59:59 CLS Outpatient BROCKADRYAN Juli [id number] 09/07/2013 11:07:10 09/07/2013 23:59:59 CLS Outpatient BROCKADRYAN Juli [id number] 08/17/2013 10:54:56 08/17/2013 23:59:59 CLS Outpatient BROCKADRYAN Juli [id number] 05/29/2013 09:22:59 05/29/2013 23:59:59 CLS Outpatient BROCK, ADRYAN Juli [id number] 04/27/2013 10:42:14 04/27/2013 23:59:59 CLS Outpatient ADRYAN GUTIÉRREZ [id number] 04/17/2013 10:38:12 04/17/2013 23:59:59 CLS Outpatient ADRYAN GUTIÉRREZ [id number] 03/30/2013 11:18:26 03/30/2013 23:59:59 CLS Outpatient ADRYAN GUTIÉRREZ [id number] 05/02/2018 07:05:00 05/02/2018 08:27:00 [id number] 04/30/2018 05:39:00 04/30/2018 12:13:00 DIS Outpatient BEBO CONNER MD [facility] PREOP LEFT CATARACT [id number] 08/04/2012 07:58:00 08/04/2012 23:59:59 CLS Outpatient [id number] 10/02/2016 08:22:00 10/02/2016 15:43:00 [id number] 07/29/2015 11:42:00 11/24/2015 15:50:00 DIS Outpatient Adryan Gutiérrez [id number] 10/02/2016 09:40:27 Document Registration [id number] 12/20/2017 14:01:06 Document Registration [id number] 09/10/2017 15:18:28 Document Registration
--- OUTSIDE RECORDS SUMMARY | 2018-05-04 08:23 | XMS REPORT ---
Author Author ADRYAN GUTIÉRREZ [facility] Address [address] [place], [place] [address] Care Team Providers Care Wax Pattern Repairer Name Role Phone ADRYAN GUTIÉRREZ PCP Unavailable [...] Syringe DIRECTED 06/30/2014 0.5ml 31Guage 8mm 07/17 [facility] Flomax 0.4 mg oral capsule,extended release 24hr [...] MOUTH ONCE DAILY IN THE THE EVENING Humulin 70/30 100 unit/mL (70-30) subcutaneous suspension 12/10/2014 INJECT 60 UNITS TWICE DAILY escitalopram oxalate 20 mg oral tablet 12/16/2014 TAKE 1 TABLET BY MOUTH DAILY benazepril 5 mg oral tablet 01/14/2015 TAKE 1 TABLET (5 MG) BY ORAL ROUTE ONCE DAILY Xanax 0.5 mg oral tablet 02/03/2015 08/02/2015 take 1 tablet by oral route 3 times a day for 30 days Percocet 5-325 mg oral tablet 03/10/2015 take 1 tablet by oral route every 6 hours as needed [place] 10-325 mg oral tablet 03/10/2015 take 1 tablet by oral route every 6 hours as needed for pain promethazine-codeine 6.25-10 mg/5 mL oral syrup 03/10/2015 take 5 milliliters by oral route every 6 hours as needed, not to exceed 30 mL in 24 hours ProAir HFA 90 mcg/actuation inhalation HFA aerosol inhaler 03/10/2015 inhale 1 puff (90 mcg) by inhalation route every 6 hours as needed Name [...] HC BMI BSA BMI Percentile O2 Sat(%) 03/10/2015 10:05:00 AM 132 mmHg 88 mmHg [...] SC/IM Reviewed 04/03/2011 12:00 AM Decadron Inj.1mg-(St.Tr) [facility] #[id number] Reviewed 04/03/2011 12:00 AM Depo-Medrol 80 Mg Im/St Rt [facility] [id number] Reviewed 07/11/2011 12:00 AM THER/PROPH/DIAG INJ SC/IM Reviewed 07/11/2011 12:00 AM Decadron Inj.1mg-(St.Tr) [facility] #[id number] Reviewed 07/11/2011 12:00 AM Depo-Medrol 80 Mg Im/St Tr [facility] [id number] Reviewed 07/11/2011 12:00 AM Rocephin, Per 250MG - 1 Gram Vial [facility] 0204-932263-Dn Tr Reviewed 10/09/2011 12:00 AM ROUTINE VENIPUNCTURE [...] 12:00 AM Rocephin 1 gram [facility]#9413-3274-98 Reviewed 02/08/2012 12:00 AM Flu Injection 3 Years And Above [facility]# [address]-07 R[facility] Reviewed 02/08/2012 12:00 AM PNEUMOCOCCAL VACC 23 EVY IM Reviewed 05/19/2012 12:00 AM THER/PROPH/DIAG INJ SC/IM Reviewed 05/19/2012 12:00 AM Decadron, Per 1 Mg [facility]# [address]-70 Reviewed 05/19/2012 12:00 AM Rocephin 1 gram [facility]#4718-8117-20 Reviewed 06/23/2012 12:00 AM THER/PROPH/DIAG INJ SC/IM Reviewed 06/23/2012 12:00 AM Decadron, Per 1 Mg [facility]# [address]-50 Reviewed 06/23/2012 12:00 AM Depo-Medrol, Per 80 Mg [facility]#9365-7244-05 Reviewed 12/01/2012 12:00 AM THER/PROPH/DIAG INJ SC/IM Reviewed 12/01/2012 12:00 AM Decadron, Per 1 Mg [facility]# [address]-47 Reviewed 12/01/2012 12:00 AM Depo-Medrol, Per 80 Mg [facility]#4717-5474-43 Reviewed 07/11/2009 12:00 AM Toradol 15 Mg,[facility]#0409-536658 Reviewed 01/26/2013 12:00 AM THER/PROPH/DIAG INJ SC/IM Reviewed 01/26/2013 12:00 AM Decadron, Per 1 Mg [facility]# [address]-77 Reviewed 04/17/2013 12:00 AM THER/PROPH/DIAG INJ SC/IM Reviewed 04/17/2013 12:00 AM Decadron, Per 12 Mg [facility]# [address]-17 Reviewed 04/27/2013 12:00 AM THER/PROPH/DIAG INJ SC/IM Reviewed 04/27/2013 12:00 AM Decadron, Per 12 Mg [facility]# [address]-59 Reviewed 04/27/2013 12:00 AM Rocephin 1 gram [facility]#5534-5411-96 Reviewed 05/29/2013 12:00 AM COMPLETE CBC W/AUTO DIFF WBC Reviewed 05/29/2013 12:00 AM COMPREHEN METABOLIC PANEL Reviewed 05/29/2013 12:00 AM GLYCOSYLATED HEMOGLOBIN TEST Reviewed 05/29/2013 12:00 AM LIPID PANEL Reviewed 05/29/2013 12:00 AM ASSAY OF PSA TOTAL Reviewed 05/29/2013 12:00 AM ROUTINE VENIPUNCTURE Reviewed 05/29/2013 12:00 AM THER/PROPH/DIAG INJ SC/IM Reviewed 05/29/2013 12:00 AM Decadron, Per 12 Mg [facility]# [address]-42 Reviewed 02/16/2010 12:00 AM ROUTINE VENIPUNCTURE Reviewed 02/16/2010 12:00 AM METABOLIC PANEL TOTAL CA Reviewed 02/16/2010 12:00 AM GLYCOSYLATED HEMOGLOBIN TEST Reviewed 08/17/2013 12:00 AM THER/PROPH/DIAG INJ SC/IM Reviewed 08/17/2013 12:00 AM Decadron, Per 1 Mg [facility]# [address]-21 Reviewed 08/17/2013 12:00 AM Rocephin 1 gram [facility]#9323-8707-18 Reviewed 09/07/2013 12:00 AM THER/PROPH/DIAG INJ SC/IM Reviewed 09/07/2013 12:00 AM Decadron, Per 1 Mg [facility]# [address]-23 Reviewed 09/29/2013 12:00 AM THER/PROPH/DIAG INJ SC/IM Reviewed 09/29/2013 12:00 AM Decadron, Per 1 Mg [place]# [address]-66 Reviewed 09/29/2013 12:00 AM Rocephin 1 gram [place]#0304-5981-42 Reviewed 12/28/2013 12:00 AM THER/PROPH/DIAG INJ SC/IM Reviewed 12/28/2013 12:00 AM Decadron, Per 1 Mg [place]# [address]-28 Reviewed 02/17/2014 12:00 AM IMMUNIZATION ADMIN Reviewed 02/17/2014 12:00 AM THER/PROPH/DIAG INJ SC/IM Reviewed 02/17/2014 12:00 AM Decadron, Per 1 Mg NDC# [address]-64 Reviewed 02/17/2014 12:00 AM Depo-Medrol, Per 80 Mg NDC#5832-2010-12 Reviewed 02/17/2014 12:00 AM Rocephin 1 gram [facility]#4451-7152-40 Reviewed 04/06/2014 12:00 AM THER/PROPH/DIAG INJ SC/IM Reviewed 04/06/2014 12:00 AM Rocephin 1 gram NDC#2032-2326-17 Reviewed 05/03/2014 12:00 AM THER/PROPH/DIAG INJ SC/IM Reviewed 05/03/2014 12:00 AM Decadron, Per 1 Mg ND# [address]-43 Reviewed 05/03/2014 12:00 AM Rocephin 1 gram [facility]#3057-0165-46 Reviewed 05/31/2014 12:00 AM THER/PROPH/DIAG INJ SC/IM Reviewed 05/31/2014 12:00 AM Decadron, Per 1 Mg [facility]# [address]-08 Reviewed Results Summary Data and Description Results [...] BILI 0.80 mg/dLCALCIUM 9.60 mg/dLeGFR >60 mL/min/1.73 [id number] 132.0 mg/dLCHOLESTEROL 109.0 mg/ dLHDL 32.0 mg/dLLDL [...] [employer] MSD Pneumovax 23 [id number] Intramuscular Left Deltoid 02/08/2012 06/17/2009 999 Influenza [...] 10 2011 9:57AM Diabetes Mellitus, Type II b [...] And Chest Symptoms Mar 10 2015 10:06AM Payers Insurance Name Company Name Plan Name Plan Number Policy Number Policy Group Number Start Date Medicare Part A Medicare Part A [id number] N/A [employer] - [place] [employer] [place] [id number] N/A [place] [employer] [place] [id number] N/A Medicare Part B Medicare Secondary [id number] Sunday, 2010 History of Encounters Visit Date Visit Type Provider 03/10/2015 Office visit ADRYAN CARLISLE 11/26/2014 Office [...]
== END 2018-05-02 08:27 | disposition home or self-care (01) ==
LOC: SDC 07:05
PROVIDERS: ATTEND Specialist
DX: H25.12 Age-related nuclear cataract, left eye (principal); H57.03 Miosis; H21.81 Floppy iris syndrome; E11.36 Type 2 diabetes mellitus with diabetic cataract; I25.10 Atherosclerotic heart disease of native coronary artery without angina pectoris; I10 Essential (primary) hypertension; Z95.5 Presence of coronary angioplasty implant and graft; Z79.82 Long term (current) use of aspirin; Z79.4 Long term (current) use of insulin; Z79.899 Other long term (current) drug therapy; Z87.891 Personal history of nicotine dependence
CPT/HCPCS: 82962

== ENCOUNTER 2018-07-16 03:57 | Emergency (ER) | payer MEDICARE, MEDICAID ==
[~2018-07-16] VITALS: Ht 182.9 cm; Wt 90.7 kg
--- OUTSIDE RECORDS SUMMARY | 2018-07-16 04:51 | XMS REPORT | Continuity of Care Document ---
Author Organization Unknown Address Unknown Allergies Active Description Code Type Severity Reaction Onset Reported/Identified Relationship to Patient Clinical Status Yes No Known Allergies [id number] N /A N/A Yes NO KNOWN DRUG ALLERGIES UNKNOWN NO KNOWN DRUG ALLERG Yes No Known Drug Allergies [id number] Drug Allergy Unknown N/A 09/26/2009 Medications Medication [...] (ZOFRAN 2CC VIAL) MG 10/02/2016 10/02/2016 ONCE&1009 NORMAL SALINE 1000CC IV BAG INJ 0.9 % (NS 1000CC IV BAG) ml 05/29/2018 06/13/2018 CONTINUOUSEVERY 0 Hour NORMAL SALINE 1000CC IV BAG INJ 0.9 % (NS 1000CC IV BAG) ml 05/30/2018 06/14/2018 CONTINUOUSEVERY 0 Hour MIDAZOLAM 2CC VIAL INJ 1 MG/CC (VERSED 2CC VIAL) MG 05/30/2018 05/30/2018 ONCE&1150 FENTANYL INJ 100 MCG/2CC VIAL MCG 05/30/2018 05/30/2018 ONCE&1212 HYDROCODONE/APAP 5MG/325MG TAB 5 MG/325MG (JESSICA-TAB 5/325) TAB 05/30/2018 05/30/2018 PRN ONCE Problems Date Dx Coded Attending Type Code [...] Ot Z01.818 ENCOUNTER FOR OTHER PREPROCEDURAL EXAMIN 05/02/2018 UBALDO RAMOS, BEBO Lima Ot 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 05/02/2018 UBALDO RAMOS, BEBO Lima Ot 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 05/02/2018 BEBO CONNER MD, Ot H25.12 AGE-RELATED NUCLEAR CATARACT, LEFT EYE 05/02/2018 BEBO CONNER MD Ot H57.03 MIOSIS 05/02/2018 BEBO CONNER MD Ot I10 ESSENTIAL (PRIMARY) HYPERTENSION 05/02/2018 BEBO CONNER MD Ot I25.10 ATHSCL HEART DISEASE OF [place] CORONARY 05/02/2018 BEBO CONNER MD Ot Z79.4 GANG MINER (CURRENT) USE OF INSULIN 05/02/2018 BEBO CONNER MD Ot Z79.82 GANG MINER (CURRENT) USE OF ASPIRIN 05/02/2018 BEBO CONNER MD Ot Z79.899 OTHER GANG MINER (CURRENT) DRUG THERAPY 05/02/2018 BEBO CONNER MD, Ot Z87.891 PERSONAL HISTORY OF NICOTINE DEPENDENCE 05/02/2018 BEBO CONNER MD Ot Z95.5 PRESENCE OF CORONARY ANGIOPLASTY IMPLANT 05/06/2018 BEBO CONNER MD Ot 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 05/06/2018 BEBO CONNER MD Ot 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 Results Test [...] 5-8.5 Urine-Protein 1+ Negative Urine-RBC Negative Urine-Specific [place] >=1.030 1.000-1.030 Urine-WBC Negative Urobilinogen 1.0 E.U./dL [...] measurement by glucometer (mass/volume) 281 mg/dL 70-110 Comprehensive Metabolic Panel - 05/29/18 12:13 Albumin 4.0 g/dL 3.6-5.1 ALP 135 U/L 35-130 ALT 34 U/L 6-45 Anion Gap 18 6-14 AST 29 U/L 2-40 BUN 23 mg/dL 5-25 Calcium 9.3 mg/dL 8.3-10.4 Chloride 101 mmol/L 95-114 CO2 22 mEq/L 22-33 Creat 1.32 mg/dL 0.50-1.50 eGFR 53 mL/min/1.73m2 >59 Globulin 2.3 g/dL 2.3-3.5 Glucose 373 mg/dL 70-110 Osmo 298 280-295 Potassium 4.7 mmol/L 3.5-5.3 Sodium 136 mmol/L 134-148 TBil 0.7 mg/dL 0.2-1.2 TP 6.3 g/dL 6.0-8.3 Surgical Pathology - 05/30/18 14:40 Surg Path Sent to [facility] Pathology Encounters ACCT No. Visit Date/Time Discharge Status Pt. Type Provider Facility Loc./Unit Complaint [id number] 04/14/2018 11:44:43 04/14/2018 23:59:59 POWER Outpatient ADRYAN GUTIÉRREZ [id number] 12/20/2017 16:46:19 12/20/2017 23:59:59 CLS Outpatient ADRYAN GUTIÉRREZ [id number] 10/29/2017 09:04:04 10/29/2017 23:59:59 POWER Outpatient ADRYAN GUTIÉRREZ [id number] 09/10/2017 09:47:17 09/10/2017 23:59:59 POWER Outpatient ADRYAN GUTIÉRREZ [id number] 08/26/2017 10:08:33 08/26/2017 23:59:59 POWER Outpatient ADRYAN GUTIÉRREZ [id number] 05/29/2017 09:53:42 05/29/2017 23:59:59 POWER Outpatient ADRYAN GUTIÉRREZ [id number] 01/28/2017 09:55:35 01/28/2017 23:59:59 CLS Outpatient BROCK, ADRYAN Bustos [id number] 11/07/2016 10:30:30 11/07/2016 23:59:59 CLS Outpatient BROCK, ADRYAN Bustos [id number] 10/16/2016 10:47:32 10/16/2016 23:59:59 CLS Outpatient BROCK, ADRYAN Bustos [id number] 10/15/2016 12:10:40 10/15/2016 23:59:59 CLS Outpatient BROCK, ADRYAN Bustos [id number] 10/03/2016 08:43:51 10/03/2016 23:59:59 CLS Outpatient BROCK, ADRYAN Bustos [id number] 09/28/2016 08:18:05 09/28/2016 23:59:59 CLS Outpatient BROCK, ADRYAN Bustos [id number] 09/27/2016 11:20:39 09/27/2016 23:59:59 CLS Outpatient BROCK, ADRYAN Bustos [id number] 09/14/2016 11:01:18 09/14/2016 23:59:59 CLS Outpatient BROCKADRYAN [id number] 06/18/2016 11:14:37 06/18/2016 23:59:59 CLS Outpatient BROCK, ADRYAN Bustos [id number] 06/13/2016 10:01:56 06/13/2016 23:59:59 CLS Outpatient BROCKADRYAN [id number] 05/04/2016 10:36:55 05/04/2016 23:59:59 CLS Outpatient BROCKADRYAN [id number] 04/02/2016 07:51:06 04/02/2016 23:59:59 CLS Outpatient BROCKADRYAN [id number] 01/30/2016 14:23:54 01/30/2016 23:59:59 [place] [id number] 01/29/2016 13:10:36 01/29/2016 23:59:59 [place] [id number] 12/09/2015 10:18:53 12/09/2015 23:59:59 CLS Outpatient BROCKADRYAN [id number] 10/13/2015 10:59:05 10/13/2015 23:59:59 CLS Outpatient BROCKADRYAN [id number] 03/10/2015 10:51:16 03/10/2015 23:59:59 CLS Outpatient BROCK, ADRYAN Bustos [id number] 11/26/2014 10:32:42 11/26/2014 23:59:59 CLS Outpatient BROCKADRYAN [id number] 10/11/2014 21:50:32 10/11/2014 23:59:59 CLS Outpatient BROCK, ADRYAN Bustos [id number] 06/16/2014 10:58:15 06/16/2014 23:59:59 CLS Outpatient BROCKADRYAN [id number] 06/11/2014 10:42:44 06/11/2014 23:59:59 CLS Outpatient BROCK, ADRYAN Bustos [id number] 05/31/2014 10:47:24 05/31/2014 23:59:59 CLS Outpatient BROCKADRYAN [id number] 04/06/2014 11:05:51 04/06/2014 23:59:59 CLS Outpatient BROCK, ADRYAN Bustos [id number] 02/17/2014 10:40:44 02/17/2014 23:59:59 CLS Outpatient BROCKADRYAN [id number] 12/28/2013 10:44:37 12/28/2013 23:59:59 CLS Outpatient BROCKADRYAN [id number] 10/30/2013 10:50:54 10/30/2013 23:59:59 CLS Outpatient BROCKADRYAN [id number] 09/29/2013 11:27:31 09/29/2013 23:59:59 CLS Outpatient BROCKADRYAN [id number] 09/07/2013 11:07:10 09/07/2013 23:59:59 CLS Outpatient BROCKADRYAN [id number] 08/17/2013 10:54:56 08/17/2013 23:59:59 CLS Outpatient BROCKADRYAN [id number] 05/29/2013 09:22:59 05/29/2013 23:59:59 CLS Outpatient BROCKADRYAN [id number] 04/27/2013 10:42:14 04/27/2013 23:59:59 CLS Outpatient BROCKADRYAN [id number] 04/17/2013 10:38:12 04/17/2013 23:59:59 CLS Outpatient BROCKADRYAN [id number] 03/30/2013 11:18:26 03/30/2013 23:59:59 CLS Outpatient BROCKADRYAN [id number] 05/02/2018 07:05:00 05/02/2018 08:27:00 DIS Outpatient BEBO CONNER MD [facility] SDC LEFT EYE CATARACT [id number] 04/30/2018 05:39:00 04/30/2018 12:13:00 DIS Outpatient BEBO CONNER MD [facility] PREOP LEFT CATARACT [id number] 08/04/2012 07:58:00 08/04/2012 23:59:59 CLS Outpatient [id number] 05/30/2018 07:23:00 05/30/2018 15:50:00 DIS Outpatient Dave Beard [id number] 05/29/2018 11:30:00 05/29/2018 23:59:00 DIS Outpatient Dave Beard [id number] 10/02/2016 08:22:00 10/02/2016 15:43:00 [id number] 07/29/2015 11:42:00 11/24/2015 15:50:00 DIS Outpatient Adryan Gutiérrez [id number] 10/02/2016 09:40:27 Document Registration [id number] 12/20/2017 14:01:06 Document Registration [id number] 09/10/2017 15:18:28 Document Registration
[2018-07-16 05:11] LABS: BILIRUBIN,URINE NEGATIVE (NEGATIVE); CLARITY,URINE CLEAR; COLOR,URINE YELLOW; GLUCOSE, URINE (UA) 4+ (NEGATIVE); KETONES,URINE 1+ (NEGATIVE); LEUKOCYTE ESTERASE ,URINE NEGATIVE (NEGATIVE); NITRITE,URINE NEGATIVE (NEGATIVE); PH,URINE 5 (5-9); PROTEIN,URINE NEGATIVE (NEGATIVE); UROBILINOGEN,URINE NORMAL (NORMAL)
[2018-07-16 05:18] LABS: BACTERIA,URINE TRACE /HPF; SQUAMOUS EPITHELIAL CELL,UR RARE /HPF
[2018-07-16 05:48] LABS: CALCIUM 10.6 MG/DL (8.5-10.1); CREATININE SERUM 1.33 MG/DL (0.60-1.30); POTASSIUM 4.8 MMOL/L (3.6-5.0)
[2018-07-16] MEDS ORDERED: NS IV 1000 ML 1,000 ML IV ONE (06:01)
[2018-07-16] MEDS ORDERED: inSUlin (REGULAR) HUMAN 1 UNIT/0.01 ML (CHARGE PER UNIT) SC ONE (06:15)
--- NOTE | 2018-07-16 06:36 | ED GU-Male ---
General Chief Complaint: - Urinary Stated Complaint: PROBLEMS WITH URINATION Nursing Triage Note: Pt states he has had trouble urinating all day today. Pt states he was able to have a steady stream while urinating in the waiting room bathroom on arrival. Source: patient, family Exam Limitations: no limitations History of Present Illness Date Seen by Provider: July 16, 2018 Time Seen by Provider: 04:30 Initial Comments This 73-year-old gentleman presents to the emergency room with urinary retention. He had surgery on his face yesterday to remove cancer. He went a long period of time without being able to urinate and was becoming uncomfortable. He was able to urinate in the waiting room. He does have a history of prostate issues and was treated for prostate cancer with radiation therapy. He is presently taking Flomax and has been under the care of Dr. Arvizu. He feels much better after urinating. Allergies and Home Medications Allergies Coded Allergies: meperidine (Verified Allergy, Severe, Mental Confusion, 07/16/18) Home Medications Alprazolam 0.5 Mg Tablet, 0.5 MG PO DAILY, (Reported) Amlodipine Besylate 5 Mg Tablet, 5 MG PO DAILY, (Reported) Aspirin 81 Mg Tablet.dr, 81 MG PO BID, (Reported) Benazepril HCl 5 Mg Tablet, 5 MG PO DAILY, (Reported) Escitalopram Oxalate 10 Mg Tablet, 10 MG PO DAILY, (Reported) Insulin NPH Hum/Reg Insulin Hm 100 Unit/1 Ml Vial, 80 UNIT SQ BID, (Reported) Loratadine 10 Mg Tablet, 10 MG PO DAILY, (Reported) Multivit-Min/FA/Lycopen/Lutein 1 Each Tablet, 1 EACH PO BID, (Reported) Pantoprazole Sodium 40 Mg Tablet.dr, 40 MG PO DAILY, (Reported) Potassium Chloride 10 Meq Tab.er.prt, 10 MEQ PO DAILY, (Reported) Simvastatin 10 Mg Tablet, 10 MG PO HS, (Reported) Tamsulosin HCl 0.4 Mg Cap.er.24h, 0.4 MG PO BID, (Reported) Patient Home Medication List Home Medication List Reviewed: Yes Review of Systems Review of Systems Constitutional: no symptoms reported EENTM: see HPI Respiratory: no symptoms reported Cardiovascular: no symptoms reported Gastrointestinal: no symptoms reported Genitourinary: see HPI Musculoskeletal: no symptoms reported Skin: no symptoms reported Psychiatric/Neurological: No Symptoms Reported Endocrine: No Symptoms Reported Past Yvxaosh-Enatqg-Trqepr Hx Past Med/Social Hx: Reviewed Nursing Past Med/Soc Hx Patient Social History Alcohol Use: Denies Use Recreational Drug Use: No Smoking Status: Never a Smoker 2nd Hand Smoke Exposure: No Recent Foreign Travel: No Contact w/Someone Who Travel: No Recent Infectious Disease Expo: No 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) Past Medical History Surgeries: Yes (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) Respiratory: Yes (COPD) COPD Cardiac: Yes High Cholesterol Neurological: No Reproductive Disorders: No Genitourinary: Yes Prostate Problems Gastrointestinal: No Musculoskeletal: No Endocrine: Yes Diabetes, Insulin dep HEENT: No Cancer: Yes Prostate, Skin Did You Recieve Any Treatments: Yes What Type of Treatment Did You: Radiation, Surgical Intervention Psychosocial: No Integumentary: No Blood Disorders: No Physical Exam Vital Signs Vital Signs - First Documented 07/16/18 04:10 Temp 97.2 Pulse 73 Resp 20 B/P (MAP) 127/52 (77) Pulse Ox 97 O2 Delivery Room Air Capillary Refill : Less Than 3 Seconds Height, Weight, BMI Height: 6'0" Weight: 200lbs. 0.0oz. 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 nml as tested, no motor/sensory deficits, alert, normal mood/affect, oriented x 3 Skin: normal color, warm/dry Progress/Results/Core Measures Suspected Sepsis Recent Fever Within 48 Hours: No Infection Criteria Present: None New/Unexplained Altered Menta: No Sepsis Screen: No Definite Risk SIRS Temperature:97.2 Pulse: 73 Respiratory Rate: 20 Blood Pressure 127 /52 Mean: 77 Laboratory Tests 07/16/18 04:10: Creatinine 1.33H Results/Orders Lab Results Laboratory Tests Test 07/16/18 04:10 07/16/18 05:05 07/16/18 06:42 Range/Units Sodium Level 135 135-145 MMOL/L Potassium Level 4.8 3.6-5.0 MMOL/L Chloride Level 97 L 98-107 MMOL/L Carbon Dioxide Level 22 21-32 MMOL/L Anion Gap 16 H 5-14 MMOL/L Blood Urea Nitrogen 20 H 7-18 MG/DL Creatinine 1.33 H 0.60-1.30 MG/DL Estimat Glomerular Filtration Rate 53 BUN/Creatinine Ratio 15 Glucose Level 405 *H 70-105 MG/DL Calcium Level 10.6 H 8.5-10.1 MG/DL Urine Color YELLOW Urine Clarity CLEAR Urine pH 5 5-9 Urine Specific [place] 1.010 L 1.016-1.022 Urine Protein NEGATIVE NEGATIVE Urine Glucose (UA) 4+ H NEGATIVE Urine Ketones 1+ H NEGATIVE Urine Nitrite NEGATIVE NEGATIVE Urine Bilirubin NEGATIVE NEGATIVE Urine Urobilinogen NORMAL NORMAL MG/DL Urine Leukocyte Esterase NEGATIVE NEGATIVE Urine RBC (Auto) NEGATIVE NEGATIVE Urine RBC NONE /HPF Urine WBC NONE /HPF Urine Squamous Epithelial Cells RARE /HPF Urine Crystals NONE /LPF Urine Bacteria TRACE /HPF Urine Casts NONE /LPF Urine Mucus NEGATIVE /LPF Urine Culture Indicated NO Glucometer 362 H 70-110 MG/DL My Orders Orders - BHAKTI CRUZ MD Bladder Scan (07/16/18 04:39) Ua Culture If Indicated (07/16/18 04:41) Basic Metabolic Panel (07/16/18 05:33) Ed Iv/Invasive Line Start (07/16/18 06:01) Ns Iv 1000 Ml (Sodium Chloride 0.9%) (07/16/18 06:01) Insulin (Regular) Human (Humulin R (Per (07/16/18 06:15) Accucheck Stat ONCE (07/16/18 06:01) Medications Given in ED Current Medications Medications Dose Ordered Sig/Sylvie Route Start Time Stop Time Status Last Admin Dose Admin Insulin Human Regular 10 unit ONCE ONCE SC 07/16/18 06:15 07/16/18 06:16 DC 07/16/18 06:14 10 UNIT Sodium Chloride 1,000 ml @ 0 mls/hr Q0M ONCE IV 07/16/18 06:01 07/16/18 06:03 DC 07/16/18 06:12 999 MLS/HR Vital Signs/I&O 07/16/18 07/16/18 04:10 06:59 Temp 97.2 Pulse 73 76 Resp 20 18 B/P (MAP) 127/52 (77) 172/80 (110) Pulse Ox 97 95 O2 Delivery Room Air Capillary Refill : Less Than 3 Seconds Blood Pressure Mean: 77 Progress Note : Progress Note Patient was found to have a residual of about 400 mL in his bladder. He was asked to void again and was able to void around 200 mL. Although he has some obstruction, it is not critical and a Thibodeaux catheter was not felt necessary. He is to continue using Flomax and follow up with Dr. Arvizu as soon as possible. Basic labs were obtained a significantly hyperglycemic. 1 L of IV fluid and 10 units of insulin were administered. Blood sugar was trending toward improvement and he was dismissed home. Departure Impression Primary Impression: Urinary retention Additional Impression: Hyperglycemia Disposition: HOME, SELF-CARE Condition: Improved Departure-Patient Inst. Decision time for Depature: 06:34 Referrals: INGRIS GUTIÉRREZ (PCP/Family) Primary Care Physician Patient Instructions: Urinary Retention Add. Discharge Instructions: Continue to take Flomax (tamsulosin) as prescribed. Follow-up with Dr. Arvizu as soon as possible. Urinate frequently to avoid excessive buildup of urine and your bladder. Return to care if you have worsening symptoms of urinary retention. Monitor your blood sugars closely over the next 48 hours and resume your insulin therapy. All discharge instructions reviewed with patient and/or family. Voiced understanding. Copy Copies To 1: YOVANY ARVIZU MD, JOSHUA T MD July 16, 2018 06:36
[2018-07-16 06:59] VITALS: BP 172/80
== END 2018-07-16 07:01 | disposition home or self-care (01) ==
LOC: EDUNIT# 03:57 → ER 04:01
DX: R33.9 Retention of urine, unspecified (principal); E11.65 Type 2 diabetes mellitus with hyperglycemia; J44.9 Chronic obstructive pulmonary disease, unspecified; E78.00 Pure hypercholesterolemia, unspecified; Z85.828 Personal history of other malignant neoplasm of skin; Z85.46 Personal history of malignant neoplasm of prostate; Z92.21 Personal history of antineoplastic chemotherapy; Z88.8 Allergy status to other drugs, medicaments and biological substances; Z79.82 Long term (current) use of aspirin; Z79.4 Long term (current) use of insulin
CPT/HCPCS: 36415; 80048; 81000; 82962; 96360; 96372

== ENCOUNTER 2018-07-16 15:16 | Emergency (ER) | payer MEDICARE, MEDICAID ==
[~2018-07-16] VITALS: Ht 182.9 cm; Wt 90.7 kg
--- NOTE | 2018-07-16 15:39 | NUR ---
TO ROOM NO CHANGE FROM TRIAGE.
--- NOTE | 2018-07-16 15:58 | ED GU-Male ---
General Chief Complaint: - Urinary Stated Complaint: KIDNEY PROBLEMS Nursing Triage Note: PT AMB TO TRIAGE WITH COMPLAINT OF DIFFICULTY URINATING. PT STATES HE WAS SEEN EARLIER THIS AM IN THE ER WITH SAME COMPLAINT. STATES WAS TOLD IF SYMPTOMS RETURN TO COME BACK TO ER. PT IS ALSO COMPLAINING OF LIP DISCOMFORT AFTER HAVING SKIN CANCER REMOVED YESTERDAY. STATES HE WAS NOT GIVEN ANY PAIN MEDICINE FOR THE REMOVAL. Source: patient Exam Limitations: no limitations History of Present Illness Date Seen by Provider: July 16, 2018 Time Seen by Provider: 15:58 Initial Comments 73-year-old male who presents to emergency room with complaints of difficulty urinating. He reports that he was seen earlier this morning in the ER with a similar complaints and had a diagnosis of urinary retention and they elected not to put in a Thibodeaux catheter due to being able to urinate on his own. He reports being under sedation yesterday due to having a skin cancer removed on his left lower lip. Denies fevers. He denies pain. Timing/Duration: this afternoon Associated Symptoms: denies symptoms Allergies and Home Medications Allergies Coded Allergies: meperidine (Verified Allergy, Severe, Mental Confusion, 07/16/18) Home Medications Alprazolam 0.5 Mg Tablet, 0.5 MG PO DAILY, (Reported) Amlodipine Besylate 5 Mg Tablet, 5 MG PO DAILY, (Reported) Aspirin 81 Mg Tablet.dr, 81 MG PO BID, (Reported) Benazepril HCl 5 Mg Tablet, 5 MG PO DAILY, (Reported) Escitalopram Oxalate 10 Mg Tablet, 10 MG PO DAILY, (Reported) Insulin NPH Hum/Reg Insulin Hm 100 Unit/1 Ml Vial, 80 UNIT SQ BID, (Reported) Loratadine 10 Mg Tablet, 10 MG PO DAILY, (Reported) Multivit-Min/FA/Lycopen/Lutein 1 Each Tablet, 1 EACH PO BID, (Reported) Pantoprazole Sodium 40 Mg Tablet.dr, 40 MG PO DAILY, (Reported) Potassium Chloride 10 Meq Tab.er.prt, 10 MEQ PO DAILY, (Reported) Simvastatin 10 Mg Tablet, 10 MG PO HS, (Reported) Tamsulosin HCl 0.4 Mg Cap.er.24h, 0.4 MG PO BID, (Reported) Patient Home Medication List Home Medication List Reviewed: Yes Review of Systems Review of Systems Constitutional: see HPI; No chills, No fever Genitourinary: see HPI, urgency, other (no urination) All Other Systemes Reviewed Negative Unless Noted: Yes Past Nfiycmq-Rvikxt-Kghqdm Hx Past Med/Social Hx: Reviewed Nursing Past Med/Soc Hx Patient Social History Alcohol Use: Denies Use Recreational Drug Use: No Type Used: Smokeless Tobacco 2nd Hand Smoke Exposure: No Recent Foreign Travel: No Contact w/Someone Who Travel: No Recent Infectious Disease Expo: No 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) Immunizations Up To Date Tetanus Booster (TDap): Unknown Past Medical History Surgeries: Yes (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) Respiratory: Yes (COPD) COPD Cardiac: Yes High Cholesterol Neurological: No Reproductive Disorders: No Genitourinary: Yes Prostate Problems Gastrointestinal: No Musculoskeletal: No Endocrine: Yes Diabetes, Insulin dep HEENT: No Cancer: Yes Prostate, Skin Did You Recieve Any Treatments: Yes What Type of Treatment Did You: Radiation, Surgical Intervention Psychosocial: No Integumentary: No Blood Disorders: No Family Medical History Reviewed Nursing Family Hx Physical Exam Vital Signs Vital Signs - First Documented 07/16/18 15:22 Pulse 70 Resp 20 B/P (MAP) 168/73 (104) Pulse Ox 96 O2 Delivery Room Air Capillary Refill : Less Than 3 Seconds Height, Weight, BMI Height: 6'0" Weight: 200lbs. 0.0oz. 90.264098em; BMI Method:Stated General Appearance: WD/WN, no apparent distress Cardiovascular: normal peripheral pulses, regular rate, rhythm, no edema, no gallop, no JVD, no murmur Respiratory: chest non-tender, lungs clear, normal breath sounds, no respiratory distress, no accessory muscle use Gastrointestinal: normal bowel sounds, non tender, soft, no organomegaly, no pulsatile mass Genital/Rectal: normal genital exam Extremities: normal capillary refill Neurologic/Psychiatric: alert, normal mood/affect, oriented x 3 Skin: normal color, warm/dry Progress/Results/Core Measures Suspected Sepsis Recent Fever Within 48 Hours: No Infection Criteria Present: None New/Unexplained Altered Menta: No Sepsis Screen: No Definite Risk SIRS Temperature: Pulse: 70 Respiratory Rate: 20 Blood Pressure 168 /73 Mean: 104 Results/Orders Lab Results Laboratory Tests Test 07/16/18 16:17 Range/Units Urine Color YELLOW Urine Clarity CLEAR Urine pH 6 5-9 Urine Specific [place] 1.010 L 1.016-1.022 Urine Protein NEGATIVE NEGATIVE Urine Glucose (UA) 4+ H NEGATIVE Urine Ketones NEGATIVE NEGATIVE Urine Nitrite NEGATIVE NEGATIVE Urine Bilirubin NEGATIVE NEGATIVE Urine Urobilinogen NORMAL NORMAL MG/DL Urine Leukocyte Esterase NEGATIVE NEGATIVE Urine RBC (Auto) NEGATIVE NEGATIVE Urine RBC NONE /HPF Urine WBC RARE /HPF Urine Crystals NONE /LPF Urine Bacteria NEGATIVE /HPF Urine Casts NONE /LPF Urine Mucus NEGATIVE /LPF Urine Culture Indicated NO My Orders Orders - ERLIN WRIGHT Thibodeaux Cath (07/16/18 15:57) Ua Culture If Indicated (07/16/18 15:57) General/Regular (07/16/18 Lunch) Vital Signs/I&O 07/16/18 07/16/18 15:22 18:00 Pulse 70 70 Resp 20 18 B/P (MAP) 168/73 (104) 170/77 (108) Pulse Ox 96 96 O2 Delivery Room Air Room Air Capillary Refill : Less Than 3 Seconds Blood Pressure Mean: 104 Progress Note : Time: 16:35 Progress Note I have seen and evaluated the patient. He did have 700 mL of urine output in the Thibodeaux catheter. Nursing staff changed out his Thibodeaux bag to a leg bag in preparation for discharge. The patient agrees with plan of care, plans for discharge, return precautions were given. Departure Impression Primary Impression: Urinary retention Disposition: 01 HOME, SELF-CARE Condition: Stable/Unchanged Departure-Patient Inst. Decision time for Depature: 16:35 Referrals: INGRIS GUTIÉRREZ (PCP) Primary Care Physician YOVANY ARVIZU MD Patient Instructions: Thibodeaux Catheter, Male, Urinary Retention Add. Discharge Instructions: Follow-up with Dr. Arvizu in the next 2-3 days to have the urinary catheter removed. Return back to the emergency room for worsening symptoms or concerns as needed. Continue your prescribed medications. All discharge instructions reviewed with patient and/or family. Voiced understanding. ERLIN WRIGHT July 16, 2018 15:58
[2018-07-16 16:23] LABS: BILIRUBIN,URINE NEGATIVE (NEGATIVE); COLOR,URINE YELLOW; GLUCOSE, URINE (UA) 4+ (NEGATIVE); KETONES,URINE NEGATIVE (NEGATIVE); LEUKOCYTE ESTERASE ,URINE NEGATIVE (NEGATIVE); NITRITE,URINE NEGATIVE (NEGATIVE); PH,URINE 6 (5-9); PROTEIN,URINE NEGATIVE (NEGATIVE); UROBILINOGEN,URINE NORMAL (NORMAL)
--- NOTE | 2018-07-16 16:28 | NUR ---
CALL T0 COME GET HIM STATES MAY BE 3 HRS BEFORE SOMEONE CAN COME GET HIM.
[2018-07-16 16:39] LABS: CLARITY,URINE CLEAR
[2018-07-16 16:40] LABS: BACTERIA,URINE NEGATIVE /HPF; WBC,URINE RARE /HPF
--- NOTE | 2018-07-16 16:43 | NUR ---
CALLED BACK STATES IT WILL BE 7PM BEFORE SOMEONE CAN COME GET HIM. ASK IF WE COULD FEED HIM THEN SHE WILL MAKE SURE HE GETS HIS INSULIN WHEN HE GET HOME. TO DISCHARGE AFTER HE EATS AND AND HE CAN WAIT WAITING ROOM.
--- NOTE | 2018-07-16 16:47 | NUR ---
PATIENT GIVEN THE MENU
--- NOTE | 2018-07-16 16:48 | NUR ---
ERLIN DING TO ROOM MENU GIVEN TO HIM. WILL PUT LEG BAG ON AND EXPLAINE HOW TO USE.
--- NOTE | 2018-07-16 16:55 | NUR ---
FOOD TRAY ORDERED
--- NOTE | 2018-07-16 17:39 | NUR ---
ATE 100% OF FOOD TRAY
--- NOTE | 2018-07-16 17:59 | NUR ---
PATIENT HAS BEEN INSTRUCTED ON CARE AND HOW TO USE LEG BAG VOICED UNDERSTANDING. PATIENT REPORTS HAS APPOINTMENT WITH DR ARVIZU ON SATURDAY AT 10A
[2018-07-16 18:00] VITALS: BP 170/77
--- OUTSIDE RECORDS SUMMARY | 2018-07-16 19:31 | XMS REPORT | Continuity of Care Document ---
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) USE OF INSULIN 05/02/2018 BEBO CONNER MD Ot Z79.82 SCHOOL LIBRARY MEDIA PROGRAM DIRECTOR (CURRENT) USE OF ASPIRIN 05/02/2018 BEBO CONNER MD Ot Z79.899 OTHER SCHOOL LIBRARY MEDIA PROGRAM DIRECTOR (CURRENT) DRUG THERAPY 05/02/2018 BEBO CONNER MD, Ot Z87.891 PERSONAL HISTORY OF NICOTINE DEPENDENCE 05/02/2018 BEBO CONNER MD Ot Z95.5 PRESENCE OF CORONARY ANGIOPLASTY IMPLANT 05/06/2018 BEBO CONNER MD Ot 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 05/06/2018 BEOB CONNER MD Ot 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0 E.U./dL [...] - 05/30/18 14:40 Surg Path Sent to [facility] Pathology Whole blood basic metabolic panel - 07/16/18 04:10 Serum or plasma sodium measurement (moles/volume) 135 mmol/L 135-145 Serum or plasma potassium measurement (moles/volume) 4.8 mmol/L 3.6-5.0 Serum or plasma chloride measurement (moles/volume) 97 mmol/L 98-107 Carbon dioxide 22 mmol/L 21-32 Serum or plasma anion gap determination (moles/volume) 16 mmol/L 5-14 Serum or plasma urea nitrogen measurement (mass/volume) 20 mg/dL 7-18 Serum or plasma creatinine measurement (mass/volume) 1.33 mg/dL 0.60-1.30 Serum or plasma urea nitrogen/creatinine mass ratio 15 NRG Serum or plasma creatinine measurement with calculation of estimated glomerular filtration rate 53 NRG Serum or plasma glucose measurement (mass/volume) 405 mg/dL 70-105 Serum or plasma calcium measurement (mass/volume) 10.6 mg/dL 8.5-10.1 Complete urinalysis with reflex to culture - 07/16/18 05:05 Urine color determination YELLOW NRG Urine clarity determination CLEAR NRG Urine pH measurement by test strip 5 5-9 Specific gravity of urine by test strip 1.010 1.016- 1.022 Urine protein assay by test strip, semi-quantitative NEGATIVE NEGATIVE Urine glucose detection by automated test strip 4+ NEGATIVE Erythrocytes detection in urine sediment by light microscopy NEGATIVE NEGATIVE Urine ketones detection by automated test strip 1+ NEGATIVE Urine nitrite detection by test strip NEGATIVE NEGATIVE Urine total bilirubin detection by test strip NEGATIVE NEGATIVE Urine urobilinogen measurement by automated test strip (mass/volume) NORMAL NORMAL Urine leukocyte esterase detection by dipstick NEGATIVE NEGATIVE Automated urine sediment erythrocyte count by microscopy (number/high power field) NONE NRG Automated urine sediment leukocyte count by microscopy (number/high power field ) NONE NRG Bacteria detection in urine sediment by light microscopy TRACE NRG Squamous epithelial cells detection in urine sediment by light microscopy RARE NRG Crystals detection in urine sediment by light microscopy NONE NRG Casts detection in urine sediment by light microscopy NONE NRG Mucus detection in urine sediment by light microscopy NEGATIVE NRG Complete urinalysis with reflex to culture NO NRG Capillary blood glucose measurement by glucometer (mass/volume) - 07/16/18 06: 42 Capillary blood glucose measurement by glucometer (mass/volume) 362 mg/dL 70-110 Complete urinalysis with reflex to culture - 07/16/18 16:17 Urine color determination YELLOW NRG Urine clarity determination CLEAR NRG Urine pH measurement by test strip 6 5-9 Specific gravity of urine by test strip 1.010 1.016- 1.022 Urine protein assay by test strip, semi-quantitative NEGATIVE NEGATIVE Urine glucose detection by automated test strip 4+ NEGATIVE Erythrocytes detection in urine sediment by light microscopy NEGATIVE NEGATIVE Urine ketones detection by automated test strip NEGATIVE NEGATIVE Urine nitrite detection by test strip NEGATIVE NEGATIVE Urine total bilirubin detection by test strip NEGATIVE NEGATIVE Urine urobilinogen measurement by automated test strip (mass/volume) NORMAL NORMAL Urine leukocyte esterase detection by dipstick NEGATIVE NEGATIVE Automated urine sediment erythrocyte count by microscopy (number/high power field) NONE NRG Automated urine sediment leukocyte count by microscopy (number/high power field ) RARE NRG Bacteria detection in urine sediment by light microscopy NEGATIVE NRG Crystals detection in urine sediment by light microscopy NONE NRG Casts detection in urine sediment by light microscopy NONE NRG Mucus detection in urine sediment by light microscopy NEGATIVE NRG Complete urinalysis with reflex to culture NO NRG Encounters ACCT No. Visit Date/Time Discharge Status Pt. Type Provider Facility Loc./Unit Complaint [id number] 04/14/2018 11:44:43 04/14/2018 23:59:59 CLS Outpatient ADRYAN GUTIÉRREZ [id number] 12/20/2017 16:46:19 12/20/2017 23:59:59 ADRYAN Herrera [id number] 10/29/2017 09:04:04 10/29/2017 23:59:59 CLS Outpatient ADRYAN GUTIÉRREZ [id number] 09/10/2017 09:47:17 09/10/2017 23:59:59 ADRYAN Herrera [id number] 08/26/2017 10:08:33 08/26/2017 23:59:59 CLS Outpatient ADRYAN GUTIÉRREZ [id number] 05/29/2017 09:53:42 05/29/2017 23:59:59 ADRYAN Herrera [id number] 01/28/2017 09:55:35 01/28/2017 23:59:59 CLS Outpatient ADRYAN GUTIÉRREZ [id number] 11/07/2016 10:30:30 11/07/2016 23:59:59 CLS Outpatient ADRYAN GUTIÉRREZ [id number] 10/16/2016 10:47:32 10/16/2016 23:59:59 CLS Outpatient ADRYAN GUTIÉRREZ [id number] 10/15/2016 12:10:40 10/15/2016 23:59:59 CLS Outpatient ADRYAN GUTIÉRREZ [id number] 10/03/2016 08:43:51 10/03/2016 23:59:59 CLS Outpatient ADRYAN GUTIÉRREZ Juli [id number] 09/28/2016 08:18:05 09/28/2016 23:59:59 CLS Outpatient ADRYAN GUTIÉRREZ Juli [id number] 09/27/2016 11:20:39 09/27/2016 23:59:59 CLS Outpatient ADRYAN GUTIÉRREZ Juli [id number] 09/14/2016 11:01:18 09/14/2016 23:59:59 CLS Outpatient ADRYAN GUTIÉRREZ Juli [id number] 06/18/2016 11:14:37 06/18/2016 23:59:59 CLS Outpatient ADRYAN GUTIÉRREZ Juli [id number] 06/13/2016 10:01:56 06/13/2016 23:59:59 CLS Outpatient BROCK, ADRYAN Bustos [id number] 05/04/2016 10:36:55 05/04/2016 23:59:59 CLS Outpatient BROCK, ADRYAN Bustos [id number] 04/02/2016 07:51:06 04/02/2016 23:59:59 CLS Outpatient BROCK, ADRYAN Bustos [id number] 01/30/2016 14:23:54 01/30/2016 23:59:59 CLS Outpatient Liberty, Adryan [id number] 01/29/2016 13:10:36 01/29/2016 23:59:59 CLS Outpatient Liberty, Adryan [id number] 12/09/2015 10:18:53 12/09/2015 23:59:59 CLS Outpatient BROCK, ADRYAN Bustos [id number] 10/13/2015 10:59:05 10/13/2015 23:59:59 CLS Outpatient BROCK, ADRYAN Bustos [id number] 03/10/2015 10:51:16 03/10/2015 23:59:59 CLS Outpatient BROCK, ADRYAN Bustos [id number] 11/26/2014 10:32:42 11/26/2014 23:59:59 CLS Outpatient BROCK, ADRYAN Bustos [id number] 10/11/2014 21:50:32 10/11/2014 23:59:59 CLS Outpatient BROCK, ADRYAN Bustos [id number] 06/16/2014 10:58:15 06/16/2014 23:59:59 CLS Outpatient BROCK, ADRYAN Bustos [id number] 06/11/2014 10:42:44 06/11/2014 23:59:59 CLS Outpatient BROCKADRYAN [id number] 05/31/2014 10:47:24 05/31/2014 23:59:59 CLS Outpatient BROCKADRYAN [id number] 04/06/2014 11:05:51 04/06/2014 23:59:59 CLS Outpatient BROCK, ADRYAN Bustos [id number] 02/17/2014 10:40:44 02/17/2014 23:59:59 CLS Outpatient BROCK, ADRYAN Bustos [id number] 12/28/2013 10:44:37 12/28/2013 23:59:59 CLS Outpatient BROCK, ADRYAN Bustos [id number] 10/30/2013 10:50:54 10/30/2013 23:59:59 CLS Outpatient BROCK, ADRYAN Bustos [id number] 09/29/2013 11:27:31 09/29/2013 23:59:59 CLS Outpatient ADRYAN GUTIÉRREZ [id number] 09/07/2013 11:07:10 09/07/2013 23:59:59 CLS Outpatient ADRYAN GUTIÉRREZ [id number] 08/17/2013 10:54:56 08/17/2013 23:59:59 CLS Outpatient ADRYAN GUTIÉRREZ [id number] 05/29/2013 09:22:59 05/29/2013 23:59:59 CLS Outpatient ADRYAN GUTIÉRREZ [id number] 04/27/2013 10:42:14 04/27/2013 23:59:59 CLS Outpatient ADRYAN GUTIÉRREZ [id number] 04/17/2013 10:38:12 04/17/2013 23:59:59 CLS Outpatient ADRYAN GUTIÉRREZ [id number] 03/30/2013 11:18:26 03/30/2013 23:59:59 CLS Outpatient ADRYAN GUTIÉRREZ [id number] 05/02/2018 07:05:00 05/02/2018 08:27:00 DIS Out[facility] [id number] 04/30/2018 05:39:00 04/30/2018 12:13:00 DIS Outpatient BEBO CONNER MD [facility] PREOP LEFT CATARACT [id number] 08/04/2012 07:58:00 08/04/2012 23:59:59 CLS Outpatient [id number] 07/16/2018 16:41:00 Document Registration [id number] 07/16/2018 05:19:00 Document Registration [id number] 05/30/2018 07:23:00 05/30/2018 15:50:00 DIS Outpatient Dave Beard [id number] 05/29/2018 11:30:00 05/29/2018 23:59:00 DIS Outpatient Dave Beard [id number] 10/02/2016 08:22:00 10/02/2016 15:43:00 DIS Outpatient Carin [facility] [place] [id number] 07/29/2015 11:42:00 11/24/2015 15:50:00 DIS Outpatient Adryan Gutiérrez [id number] 10/02/2016 09:40:27 Document Registration [id number] 12/20/2017 14:01:06 Document Registration [id number] 09/10/2017 15:18:28 Document Registration
== END 2018-07-16 18:00 | disposition home or self-care (01) ==
LOC: EDUNIT# 15:16 → ER 15:17
DX: R33.9 Retention of urine, unspecified (principal); J44.9 Chronic obstructive pulmonary disease, unspecified; E78.00 Pure hypercholesterolemia, unspecified; E11.9 Type 2 diabetes mellitus without complications; F17.200 Nicotine dependence, unspecified, uncomplicated; Z88.8 Allergy status to other drugs, medicaments and biological substances; Z85.828 Personal history of other malignant neoplasm of skin; Z79.82 Long term (current) use of aspirin; Z79.4 Long term (current) use of insulin; Z85.46 Personal history of malignant neoplasm of prostate; Z92.21 Personal history of antineoplastic chemotherapy
CPT/HCPCS: 51702; 81000

== ENCOUNTER 2018-07-17 17:27 | Observation (INO) | payer MEDICARE, MEDICAID ==
[2018-07-17] VITALS (7 sets, daily range): BP systolic 105–143; BP diastolic 63–86
[~2018-07-17] VITALS: Ht 182.9 cm; Wt 99.8 kg
[2018-07-17] MEDS ORDERED: ACETAMINOPHEN 500 MG TAB (TYLENOL) PO STA (17:46)
--- NOTE | 2018-07-17 17:52 | ED Chest Pain ---
General Stated Complaint: CP Source: patient, EMS Exam Limitations: no limitations (VIDHYA ORTIZ MD) History of Present Illness Date Seen by Provider: July 17, 2018 Time Seen by Provider: 17:33 Initial Comments Here with report of chest pain since last night. States that it's in the center of his chest and is burning. Hasn't really been able to eat. Seen in [facility] last night and had a Thibodeaux catheter adjusted and he apparently had fairly significant retention after Thibodeaux catheter placement here yesterday. That was for urinary retention. Does have history of cardiac events and has multiple stents placed several years ago. Not currently on blood thinners. 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 He came here via EMS. In route, they did give nitroglycerin sublingual 2. First nitroglycerin did not change his pain and he had no effect other francois. The second nitroglycerin caused precipitous drop in blood pressure to the 70s systolic. That did improve after fluid bolus. His pain did nearly resolved and he remains nearly resolved now. Does have some residual mild central burning pain. States overall does not feel well. Did have a bowel movement today after using laxative earlier this morning. States he has urine flow continuing now. Timing/Duration: 12-24 hours Severity/Quality: moderate, burning, pressure Location: central Radiation: no radiation, arms Activities at Onset: none Prior CP/Workup: cardiac cath ASA po SUPERVISOR PUMPING: Yes NTG SL SUPERVISOR PUMPING: No Associated Symptoms: abdominal pain; No back pain, No diaphoresis; fatigue; No fever/chills; nausea/vomiting, shortness of breath; No weakness (VIDHYA ORTIZ MD) Allergies and Home Medications Allergies Coded Allergies: meperidine (Verified Allergy, Severe, Mental Confusion, 07/16/18) Home Medications Alprazolam 0.5 Mg Tablet, 0.5 MG PO DAILY, (Reported) Amlodipine Besylate 5 Mg Tablet, 5 MG PO DAILY, (Reported) Aspirin 81 Mg Tablet.dr, 81 MG PO BID, (Reported) Benazepril HCl 5 Mg Tablet, 5 MG PO DAILY, (Reported) Escitalopram Oxalate 10 Mg Tablet, 10 MG PO DAILY, (Reported) Insulin NPH Hum/Reg Insulin Hm 100 Unit/1 Ml Vial, 80 UNIT SQ BID, (Reported) Loratadine 10 Mg Tablet, 10 MG PO DAILY, (Reported) Multivit-Min/FA/Lycopen/Lutein 1 Each Tablet, 1 EACH PO BID, (Reported) Pantoprazole Sodium 40 Mg Tablet.dr, 40 MG PO DAILY, (Reported) Potassium Chloride 10 Meq Tab.er.prt, 10 MEQ PO DAILY, (Reported) Simvastatin 10 Mg Tablet, 10 MG PO HS, (Reported) Tamsulosin HCl 0.4 Mg Cap.er.24h, 0.4 MG PO BID, (Reported) Patient Home Medication List Home Medication List Reviewed: Yes (VIDHYA ORTIZ MD) Review of Systems Review of Systems Constitutional: see HPI; No chills, No fever EENTM: No Symptoms Reported Respiratory: Shortness of Air; Denies Wheezing Cardiovascular: Chest Pain; Denies Edema Gastrointestinal: Constipated, Nausea; Denies Vomiting Genitourinary: No Symptoms Reported Musculoskeletal: joint pain; No muscle pain Skin: change in color (near the lower lip where he had surgical excision) Psychiatric/Neurological: No Symptoms Reported (VIDHYA ORTIZ MD) All Other Systems Reviewed Negative Unless Noted: Yes (VIDHYA ORTIZ MD) Past Tklzncw-Jybjbb-Uforlh Hx Past Med/Social Hx: Reviewed Nursing Past Med/Soc Hx (VIDHYA ORTIZ MD) Patient Social History Alcohol Use: Denies Use Recreational Drug Use: No Type Used: Smokeless Tobacco 2nd Hand Smoke Exposure: No Recent Foreign Travel: No Contact w/Someone Who Travel: No 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) (VIDHYA ORTIZ MD) Immunizations Up To Date Tetanus Booster (TDap): Unknown (VIDHYA ORTIZ MD) Past Medical History Surgeries: Yes (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) Respiratory: Yes (COPD) COPD Cardiac: Yes Coronary Artery Disease, High Cholesterol Neurological: No Reproductive Disorders: No Genitourinary: Yes Prostate Problems Gastrointestinal: No Musculoskeletal: No Endocrine: Yes Diabetes, Insulin dep HEENT: No Cancer: Yes Prostate, Skin Did You Recieve Any Treatments: Yes What Type of Treatment Did You: Radiation, Surgical Intervention Psychosocial: No Integumentary: No Blood Disorders: No (VIDHYA ORTIZ MD) Family Medical History Reviewed Nursing Family Hx (VIDHYA ORTIZ MD) No Pertinent Family Hx (VIDHYA ORTIZ MD) Physical Exam Vital Signs Vital Signs - First Documented 07/17/18 18:22 Temp 99.1 Pulse 75 Resp 15 Pulse Ox 92 O2 Delivery Room Air (ERLIN THOMPSON) Vital Signs Capillary Refill : (VIDHYA ORTIZ MD) Height, Weight, BMI Height: 6'0" Weight: 200lbs. 0.0oz. 90.170006af; BMI Method:Stated General Appearance: No Apparent Distress, WD/WN HEENT: PERRL/EOMI, Pharynx Normal, Other (lip postop wound is moist appearing no significant purulent drainage.) Neck: Non Tender, Supple Respiratory: Lungs Clear, Normal Breath Sounds Cardiovascular: Regular Rate, Rhythm, No Murmur Gastrointestinal: Non Tender, Soft Extremity: Normal Range of Motion, Non Tender Neurologic/Psychiatric: Alert, Oriented x3 Skin: Normal Color, Warm/Dry (VIDHYA ORTIZ MD) Focused Exam Lactate Level 07/17/18 17:40: Lactic Acid Level 1.92 (ERLIN THOMPSON) Lactic Acid Level Laboratory Tests Test 07/17/18 17:40 Lactic Acid Level 1.92 MMOL/L (0.50-2.00) (ERLIN THOMPSON) Progress/Results/Core Measures Results/Orders Lab Results Laboratory Tests Test 07/17/18 17:40 07/17/18 18:15 Range/Units White Blood Count 9.7 4.3-11.0 10^3/uL Red Blood Count 4.91 4.35-5.85 10^6/uL Hemoglobin 14.3 13.3-17.7 G/DL Hematocrit 42 40-54 % Mean Corpuscular Volume 86 80-99 FL Mean Corpuscular Hemoglobin 29 25-34 PG Mean Corpuscular Hemoglobin Concent 34 32-36 G/DL Red Cell Distribution Width 14.0 10.0-14.5 % Platelet Count 269 130-400 10^3/uL Mean Platelet Volume 10.1 7.4-10.4 FL Neutrophils (%) (Auto) 70 42-75 % Lymphocytes (%) (Auto) 16 12-44 % Monocytes (%) (Auto) 12 0-12 % Eosinophils (%) (Auto) 1 0-10 % Basophils (%) (Auto) 0 0-10 % Neutrophils # (Auto) 6.8 1.8-7.8 X 10^3 Lymphocytes # (Auto) 1.6 1.0-4.0 X 10^3 Monocytes # (Auto) 1.2 H 0.0-1.0 X 10^3 Eosinophils # (Auto) 0.1 0.0-0.3 10^3/uL Basophils # (Auto) 0.0 0.0-0.1 10^3/uL Prothrombin Time 13.9 12.2-14.7 SEC INR Comment 1.0 0.8-1.4 Activated Partial Thromboplast Time 25 24-35 SEC Sodium Level 138 135-145 MMOL/L Potassium Level 3.5 L 3.6-5.0 MMOL/L Chloride Level 100 98-107 MMOL/L Carbon Dioxide Level 25 21-32 MMOL/L Anion Gap 13 5-14 MMOL/L Blood Urea Nitrogen 18 7-18 MG/DL Creatinine 1.16 0.60-1.30 MG/DL Estimat Glomerular Filtration Rate > 60 BUN/Creatinine Ratio 16 Glucose Level 112 H 70-105 MG/DL Lactic Acid Level 1.92 0.50-2.00 MMOL/L Calcium Level 9.2 8.5-10.1 MG/DL Corrected Calcium 9.3 8.5-10.1 MG/DL Magnesium Level 1.6 L 1.8-2.4 MG/DL Total Bilirubin 0.9 0.1-1.0 MG/DL Aspartate Amino Transf (AST/SGOT) 25 5-34 U/L Alanine Aminotransferase (ALT/SGPT) 32 0-55 U/L Alkaline Phosphatase 91 40-136 U/L Myoglobin 216.3 H 10.0-92.0 NG/ML Troponin I < 0.028 <0.028 NG/ML C-Reactive Protein High Sensitivity 3.79 H 0.00-0.50 MG/DL B-Type Natriuretic Peptide 14.5 <100.0 PG/ML Total Protein 6.2 L 6.4-8.2 GM/DL Albumin 3.9 3.2-4.5 GM/DL Urine Color YELLOW Urine Clarity CLEAR Urine pH 7 5-9 Urine Specific [place] 1.005 L 1.016-1.022 Urine Protein 3+ H NEGATIVE Urine Glucose (UA) NEGATIVE NEGATIVE Urine Ketones NEGATIVE NEGATIVE Urine Nitrite NEGATIVE NEGATIVE Urine Bilirubin NEGATIVE NEGATIVE Urine Urobilinogen 1 NORMAL MG/DL Urine Leukocyte Esterase 3+ H NEGATIVE Urine RBC (Auto) 4+ H NEGATIVE Urine RBC 10-25 H /HPF Urine WBC 10-25 H /HPF Urine Crystals NONE /LPF Urine Bacteria TRACE /HPF Urine Casts NONE /LPF Urine Mucus NEGATIVE /LPF Urine Culture Indicated YES (ERLIN THOMPSON) Medications Given in ED Current Medications Medications Dose Ordered Sig/Sylvie Route Start Time Stop Time Status Last Admin Dose Admin Al Hydrox/Mg Hydrox/Simethicone 30 ml ONCE ONCE PO 07/17/18 18:00 07/17/18 18:01 DC 07/17/18 17:59 30 ML Lidocaine HCl 15 ml ONCE ONCE PO 07/17/18 18:00 07/17/18 18:01 DC 07/17/18 18:00 15 ML (ERLIN THOMPSON) Vital Signs/I&O 07/17/18 18:22 Temp 99.1 Pulse 75 Resp 15 B/P (MAP) Pulse Ox 92 O2 Delivery Room Air (ERLIN THOMPSON) Progress Progress Note : Progress Note Seen and evaluated. IV by EMS. Normal saline 1 L bolus initiated by EMS will continue. We will initiate chest pain protocol including EKG, chest x-ray and labs. I will add blood cultures and lactic acid given his history of surgery and problems with his catheter and urinary retention problems. Patient was seen with Erlin Thompson APRN and care will be transferred to him. (VIDHYA ORTIZ MD) Progress Note : Progress Note 1837: The patient is pain-free at this time. Given his cardiac history we will be admitting him to the hospital for chest pain rule out. Dr. Avitia was contacted at this time and she agrees to accept the patient to her services. Cardiology and neurology will be consult as well. Patient agrees with plans for admission. (ERLIN THOMPSON) Initial ECG Impression Date: July 17, 2018 Initial ECG Impression Time: 17:38 Initial ECG Rate: 83 Initial ECG Rhythm: Normal Sinus Comment Sinus rhythm with normal axis. No evidence of ST elevation OK. Similar to . Interpreted by me. (VIDHYA ORTIZ MD) Diagnostic Imaging Diagonstic Imaging: Xray Plain Films/CT/US/NM/MRI: chest Comments NAME: YOKASTA BALDWIN MED REC#: [id number] PT STATUS: REG ER : 1945 PHYSICIAN: VIDHYA ORTIZ MD ADMIT DATE: 07/17/18/ER Signed Date of Exam: 07/17/18 CHEST 1 VIEW, AP/PA ONLY INDICATION: Chest pain Frontal chest obtained at 6:16 p.m. and compared to 09/26/09. Heart and mediastinal silhouette are normal in appearance. The lungs are clear. There is no pneumothorax or pleural fluid. IMPRESSION: No acute process in the chest. Dictated by: Dictated on workstation # [id number] Dict: 07/17/181821 Trans: 07/17/181832 Interpreted by: ARAMIS SIMMONS MD Electronically signed by: ARAMIS SIMMONS MD 07/17/181832 Reviewed: Reviewed by Me (ERLIN THOMPSON) Departure Communication (Admissions) Time/Spoke to Admitting Phy: 18:37 Dr. Avitia (ERLIN THOMPSON) Impression Primary Impression: Chest pain Additional Impression: Urinary retention Disposition: ADMITTED INPATIENT Condition: Stable/Unchanged Admissions Decision to Admit Reason: Admit from ER (General) Decision to Admit/Date: July 17, 2018 Time/Decision to Admit Time: 19:00 (ERLIN THOMPSON) Departure-Patient Inst. Referrals: NO,LOCAL PHYSICIAN (PCP) Primary Care Physician INGRIS GUTIÉRREZ (Family) Primary Care Physician VIDHYA ORTIZ MD July 17, 2018 17:52 ERLIN THOMPSON July 17, 2018 19:05
[2018-07-17 17:56] LABS: BASOPHILS % (AUTO) 0 % (0-10); EOSINOPHILS # (AUTO) 0.1 10^3/uL (0.0-0.3); EOSINOPHILS % (AUTO) 1 % (0-10); HEMATOCRIT 42 % (40-54); HEMOGLOBIN 14.3 G/DL (13.3-17.7); LYMPHOCYTES # (AUTO) 1.6 X 10^3 (1.0-4.0); LYMPHOCYTES % (AUTO) 16 % (12-44); MEAN CORPUSCULAR HEMOGLOBIN 29 PG (25-34); MEAN CORPUSCULAR HGB CONC 34 G/DL (32-36); MEAN CORPUSCULAR VOLUME 86 FL (80-99); MEAN PLATELET VOLUME 10.1 FL (7.4-10.4); MONOCYTES # (AUTO) 1.2 X 10^3 (0.0-1.0); MONOCYTES % (AUTO) 12 % (0-12); NEUTROPHILS # (AUTO) 6.8 X 10^3 (1.8-7.8); NEUTROPHILS % (AUTO) 70 % (42-75); PLATELET COUNT 269 10^3/uL (130-400); WHITE BLOOD COUNT 9.7 10^3/uL (4.3-11.0)
[2018-07-17] MEDS ORDERED: ANTACID SUSP 30 ML UDC (MYLANTA) PO ONE (18:00)
[2018-07-17] MEDS ORDERED: LIDOCAINE 2% VISCOUS 15 ML UDC PO ONE (18:00)
[2018-07-17 18:06] LABS: PROTHROMBIN TIME PATIENT 13.9 SEC (12.2-14.7)
[2018-07-17 18:13] LABS: ALANINE AMINOTRANSFERASE 32 U/L (0-55); ALBUMIN 3.9 GM/DL (3.2-4.5); ALKALINE PHOSPHATASE 91 U/L (40-136); BILIRUBIN,TOTAL 0.9 MG/DL (0.1-1.0); BUN/CREATININE RATIO 16; CALCIUM 9.2 MG/DL (8.5-10.1); CARBON DIOXIDE 25 MMOL/L (21-32); CHLORIDE 100 MMOL/L (98-107); CREATININE SERUM 1.16 MG/DL (0.60-1.30); GFR ESTIMATED > 60; GLUCOSE 112 MG/DL (70-105); MAGNESIUM 1.6 MG/DL (1.8-2.4); POTASSIUM 3.5 MMOL/L (3.6-5.0); SODIUM 138 MMOL/L (135-145); TOTAL PROTEIN 6.2 GM/DL (6.4-8.2)
[2018-07-17 18:24] LABS: BILIRUBIN,URINE NEGATIVE (NEGATIVE); CLARITY,URINE CLEAR; COLOR,URINE YELLOW; GLUCOSE, URINE (UA) NEGATIVE (NEGATIVE); KETONES,URINE NEGATIVE (NEGATIVE); LEUKOCYTE ESTERASE ,URINE 3+ (NEGATIVE); NITRITE,URINE NEGATIVE (NEGATIVE); PH,URINE 7 (5-9); PROTEIN,URINE 3+ (NEGATIVE); UROBILINOGEN,URINE 1 MG/DL (NORMAL)
--- NOTE | 2018-07-17 18:25 | Diagnostic Imaging Report ---
INDICATION: Chest pain Frontal chest obtained at 6:16 p.m. and compared to 09/26/09. Heart and mediastinal silhouette are normal in appearance. The lungs are clear. There is no pneumothorax or pleural fluid. IMPRESSION: No acute process in the chest. Dictated by: Dictated on workstation # [id number]
[2018-07-17 18:33] LABS: BACTERIA,URINE TRACE /HPF
--- NOTE | 2018-07-17 20:20 | NUR ---
220 ml drained from leg bag at this time
--- NOTE | 2018-07-17 20:30 | NUR ---
Tr Baldwin admitted to room 404-1, with an admitting diagnosis of CP, urinary retention, on 07/17/18 from ED via stretcher, accompanied by staff.TR BALDWIN introduced to surroundings, call light, bed controls, phone, TV, temperature control, lights, meal times, smoking policy, visitor policy, side rail policy, bathrooms and showers. Patient Rights given to patient in the handbook.TR BALDWIN verbalizes understanding that [facility] is not responsible for the loss or damage to any personal effects or valuables that are kept in the patients posession during their hospitalization. The Patient Care Plans were discussed with the pt. TR BALDWIN verbalizes understanding of Interdisciplinary Patient Education. Patient and/or family were informed about the Rapid Response Team and its purpose.
--- NOTE | 2018-07-17 21:12 | NUR ---
Dr. Martinez notified of cardiology consult. Orders received for one-time doses of 20 mEq PO Potassium, 81 mg PO Aspirin, et 40 mg PO Protonix.
[2018-07-17] MEDS ORDERED: ASPIRIN 81 MG CHEW (CHILDREN'S ASA) PO ONE (21:30)
[2018-07-17] MEDS ORDERED: KCL 20 MEQ TAB (K-DUR) PO ONE (21:30)
[2018-07-17] MEDS ORDERED: PANTOPRAZOLE 40 MG (PROTONIX) TAB PO ONE (21:30)
[2018-07-17] MEDS ORDERED: ONDANSETRON 4 MG/2 ML (SDV) Z0FRAN IV PRN (21:45)
[2018-07-18 00:13] VITALS: BP 125/72
[2018-07-18 00:14] LABS: CREATINE KINASE 174 U/L (30-200)
[2018-07-18 00:20] LABS: CARDIAC PROFILE 2 < 0.028 NG/ML (<0.028)
[2018-07-18 01:10] VITALS: BP 137/78
[2018-07-18 03:31] VITALS: BP 112/69
[2018-07-18 06:14] LABS: BASOPHILS % (AUTO) 0 % (0-10); EOSINOPHILS # (AUTO) 0.1 10^3/uL (0.0-0.3); EOSINOPHILS % (AUTO) 1 % (0-10); HEMATOCRIT 43 % (40-54); LYMPHOCYTES # (AUTO) 1.3 X 10^3 (1.0-4.0); LYMPHOCYTES % (AUTO) 18 % (12-44); MEAN CORPUSCULAR HEMOGLOBIN 29 PG (25-34); MEAN CORPUSCULAR HGB CONC 33 G/DL (32-36); MEAN CORPUSCULAR VOLUME 88 FL (80-99); MONOCYTES # (AUTO) 0.8 X 10^3 (0.0-1.0); MONOCYTES % (AUTO) 11 % (0-12); NEUTROPHILS # (AUTO) 4.9 X 10^3 (1.8-7.8); NEUTROPHILS % (AUTO) 70 % (42-75); PLATELET COUNT 243 10^3/uL (130-400); RED CELL DISTRIBUTION WIDTH 14.1 % (10.0-14.5)
[2018-07-18 06:39] LABS: ALANINE AMINOTRANSFERASE 25 U/L (0-55); ALBUMIN 3.6 GM/DL (3.2-4.5); ALKALINE PHOSPHATASE 97 U/L (40-136); BILIRUBIN,TOTAL 0.9 MG/DL (0.1-1.0); BUN/CREATININE RATIO 15; CALCIUM 9.1 MG/DL (8.5-10.1); CARBON DIOXIDE 26 MMOL/L (21-32); CHLORIDE 100 MMOL/L (98-107); CHOLESTEROL 113 MG/DL (< 200); CREATINE KINASE 144 U/L (30-200); CREATININE SERUM 1.22 MG/DL (0.60-1.30); GFR ESTIMATED 58; GLUCOSE 304 MG/DL (70-105); HDL CHOLESTEROL 27 MG/DL (40-60); POTASSIUM 4.4 MMOL/L (3.6-5.0); SODIUM 137 MMOL/L (135-145); TRIGLYCERIDES 218 MG/DL (<150); VLDL CHOLESTEROL 44 MG/DL (5-40)
[2018-07-18 06:47] LABS: CARDIAC PROFILE 2 < 0.028 NG/ML (<0.028)
--- NOTE | 2018-07-18 06:47 | NUR ---
Dr. Damon notified of consult. No new orders received at this time.
[2018-07-18 08:03] VITALS: BP 147/81
[2018-07-18] MEDS: ASPIRIN E.C. 81 MG (ECOTRIN) TAB PO SCH (08:33)
[2018-07-18] MEDS ORDERED: CEPH500C PO (08:46)
[2018-07-18] MEDS ORDERED: POTA10TA10 PO (08:46)
[2018-07-18] MEDS ORDERED: TAMS0.4C98 PO (08:47)
[2018-07-18] MEDS ORDERED: NEOM28.33 TP (08:57)
[2018-07-18] MEDS ORDERED: SIMV20TA3 PO (08:57)
[2018-07-18] MEDS ORDERED: ACET-2267 PO (08:57)
[2018-07-18] MEDS ORDERED: HUM100VI SC (08:57)
--- NOTE | 2018-07-18 09:02 | NUR ---
SPOKE WITH THE PATIENT ABOUT HIS MEDICATIONS. HE HAD A LIST FROM HIS PHARMACY AND A LIST OF MEDICATIONS FROM HIS RECENT DISCHARGE FROM [place]. HE VERIFIED HOW HE TAKES THEM WELL. HIS SIMVASTATIN IS WRITTEN ONCE DAILY HOWEVER HE STATES HE TAKE 1/2 TABLET. HE TAKES 2 ASPIRIN 81MG DAILY OTC, TYLENOL PRN, AND NEOSPORIN TID TO HIS LIPS.
--- NOTE | 2018-07-18 09:38 | Consultation-Cardiology ---
HPI-Cardiology Cardiology Consultation: Date of Consultation 07/18/18 Time Seen by a Provider: 09:05 Date of Admission 07-17-18 Attending Physician Kymberly Avitia DO Admitting Physician Smita,Local Physician Consulting Physician Verna Martinez MD HPI: Chief Complaint: Chest pain Mr. Baldwin is a 73 year old male admitted to [facility] from the ED. 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 He reports he went home and Saturday was unable to urinate. He came to the ED where a urinary catheter was placed with leg beg and he was discharged home. He reports Saturday morning he was having abdominal pain and bloating. He then went [place] [facility] [place] at which time the catheter was replaced. He states he has been having a "burning sensation" in his chest without radiation for a few days. He states last evening he again he was having abdominal pain and bloating, he felt his catheter was not draining so he came to the ED. He reports he had burning in his chest again which had been present off and on for several days. He reports no change in the discomfort with activity or rest. He is unsure how long the episodes would last, but at least several hours. He reports when he arrived to his room from the ED the burning in his chest was still present, but much less than before. He states this morning he had some worsening in the discomfort. He also felt diaphoretic. He states it lasted for a few minutes after he had taken off his oxygen, but improved after using the BR and putting his oxygen back on. He reports having fever and chills at home. He has chronic mod exertional dyspnea, which he felt had been somewhat worse the last few days. He reports he has had a frequent cough which is occ prod with clear sputum. He reports he wears oxygen at and has been for the last 3 months. He denies any palpitations, syncope, near syncope or LE swelling. His primary print cutter is Dr. Skinner at [facility] in [place], [place]. Review of Systems-Cardiology Review of Systems Constitutional: chills, fever, malaise Eyes: No vision change Ears/Nose/Throat: No epistaxis, No recent hearing loss, No ulcerations Respiratory: As described under HPI Cardiovascular: As described under HPI Gastrointestinal: constipation; No diarrhea, No nausea, No vomiting Genitourinary: dysuria, other (retention) Musculoskeletal: joint pain Skin: No rash, No ulcerations Psychiatric/Neurological: No anxiety, No depression, No seizure, No focal weakness, No syncope Hematologic: No bleeding abnormalities All Other Systems Reviewed Negative Unless Noted: Yes HIE-Oafrst-Wosmkk Hx Patient Social History Alcohol Use: Denies Use Recreational Drug Use: No Smoking Status: Former Smoker Type Used: Smokeless Tobacco 2nd Hand Smoke Exposure: No Recent Foreign Travel: No Recent Infectious Disease Expo: No Hospitalization with Isolation: Denies Physical Abuse Screen: No Sexual Abuse: No Immunizations Up To Date Tetanus Booster (TDap): Unknown Date of Pneumonia Vaccine: Dec 02, 2018 Past Medical History PMH As described under Assessment. Family Medical History Family Medical History: Reports he was adopted and does not know any family medical history. Family History: Patient reports no known family medical history. Allergies and Home Medications Allergies Coded Allergies: meperidine (Verified Allergy, Severe, Mental Confusion, 07/16/18) Home Medications Acetaminophen 500 Mg Tablet, 1,000 MG PO DAILY PRN for PAIN-MILD, (Reported) Alprazolam 0.5 Mg Tablet, 0.5 MG PO TID PRN for ANXIETY, (Reported) Aspirin 81 Mg Tablet.dr, 162 MG PO DAILY, (Reported) TAKES 2 (81MG) TABLETS Benazepril HCl 5 Mg Tablet, 5 MG PO DAILY, (Reported) Cephalexin 500 Mg Capsule, 500 MG PO Q8H, (Reported) 5 DAY THEARPY FILLED 07-15-18 Escitalopram Oxalate 10 Mg Tablet, 10 MG PO HS, (Reported) Insulin NPH Hum/Reg Insulin Hm 100 Unit/1 Ml Vial, 80 UNITS SC BID, (Reported) Neomycin Tillman/Bacitrac Zn/Poly 28.3 Gm Oint...g., TP TID, (Reported) APPLY TO LIPS Pantoprazole Sodium 40 Mg Tablet.dr, 40 MG PO DAILY, (Reported) Potassium Chloride 10 Meq Tablet.er, 10 MEQ PO DAILY, (Reported) Simvastatin 20 Mg Tablet, 10 MG PO HS, (Reported) TAKES 1/2 (20MG) TABLETS Tamsulosin HCl 0.4 Mg Cap, 0.4 MG PO BID, (Reported) Patient Home Medication List Home Medication List Reviewed: Yes Physical Exam-Cardiology Physical Exam Vital Signs/I&O 5/1707/18/18 07/18/18 07/18/18 03:31 07:28 08:00 08:03 Temp 98.0 98.3 Pulse 60 55 72 Resp 18 18 B/P (MAP) 112/69 (83) 147/81 (103) Pulse Ox 96 97 97 O2 Delivery Nasal Cannula Nasal Cannula Nasal Cannula O2 Flow Rate 3.00 3.00 3.00 07/18/18 13:22 Pulse 76 Capillary Refill : Less Than 3 Seconds Constitutional: AAO x 3, well-developed, well-nourished HEENT: PERRL, hearing is well preserved, oral hygience is good Neck: carotid bruit, carotid pulses are 2 + bilaterally Respiratory: No accessory muscle use, No respiratory distress; chest expansion is symmetric, chest is bilaterally symmetric, rhonchi (scattered), other (prolonged expiratory phase) Cardiovascular: regular rate-rhythm; No JVD; S1 and S2, systolic murmur Gastrointestinal: No tender; soft, round, audible bowel sounds Rectal: deferred Genital/Rectal: other (Urinary catheter to leg bag - clear, yellow urine) Extremities: no lower extremity edema bilateral Neurologic/Psychiatric: grossly intact, power is 5/5 both on sides Skin: No rash, No ulcerations Data Review Labs Laboratory Tests 07/17/18 17:40: White Blood Count 9.7, Red Blood Count 4.91, Hemoglobin 14.3, Hematocrit 42, Mean Corpuscular Volume 86, Mean Corpuscular Hemoglobin 29, Mean Corpuscular Hemoglobin Concent 34, Red Cell Distribution Width 14.0, Platelet Count 269, Mean Platelet Volume 10.1, Neutrophils (%) (Auto) 70, Lymphocytes (%) (Auto) 16, Monocytes (%) (Auto) 12, Eosinophils (%) (Auto) 1, Basophils (%) (Auto) 0, Neutrophils # (Auto) 6.8, Lymphocytes # (Auto) 1.6, Monocytes # (Auto) 1.2H, Eosinophils # (Auto) 0.1, Basophils # (Auto) 0.0, Prothrombin Time 13.9, INR Comment 1.0, Activated Partial Thromboplast Time 25, Sodium Level 138, Potassium Level 3.5L, Chloride Level 100, Carbon Dioxide Level 25, Anion Gap 13, Blood Urea Nitrogen 18, Creatinine 1.16, Estimat Glomerular Filtration Rate > 60, BUN/Creatinine Ratio 16, Glucose Level 112H, Lactic Acid Level 1.92, Calcium Level 9.2, Corrected Calcium 9.3, Magnesium Level 1.6L, Total Bilirubin 0.9, Aspartate Amino Transf (AST/SGOT) 25, Alanine Aminotransferase (ALT/SGPT) 32, Alkaline Phosphatase 91, Myoglobin 216.3H, Troponin I < 0.028, C-Reactive Protein High Sensitivity 3.79H, B-Type Natriuretic Peptide 14.5, Total Protein 6 .2L, Albumin 3.9 07/17/18 18:15: Urine Color YELLOW, Urine Clarity CLEAR, Urine pH 7, Urine Specific [place] 1.005L, Urine Protein 3+H, Urine Glucose (UA) NEGATIVE, Urine Ketones NEGATIVE, Urine Nitrite NEGATIVE, Urine Bilirubin NEGATIVE, Urine Urobilinogen 1, Urine Leukocyte Esterase 3+H, Urine RBC (Auto) 4+H, Urine RBC 10-25H, Urine WBC 10-25H , Urine Crystals NONE, Urine Bacteria TRACE, Urine Casts NONE, Urine Mucus NEGATIVE, Urine Culture Indicated YES 07/17/18 23:49: Troponin I < 0.028, Total Creatine Kinase 174 07/18/18 05:52: White Blood Count 7.0, Red Blood Count 4.89, Hemoglobin 14.0, Hematocrit 43, Mean Corpuscular Volume 88, Mean Corpuscular Hemoglobin 29, Mean Corpuscular Hemoglobin Concent 33, Red Cell Distribution Width 14.1, Platelet Count 243, Mean Platelet Volume 10.0, Neutrophils (%) (Auto) 70, Lymphocytes (%) (Auto) 18, Monocytes (%) (Auto) 11, Eosinophils (%) (Auto) 1, Basophils (%) (Auto) 0, Neutrophils # (Auto) 4.9, Lymphocytes # (Auto) 1.3, Monocytes # (Auto) 0.8, Eosinophils # (Auto) 0.1, Basophils # (Auto) 0.0, Sodium Level 137, Potassium Le margarito 4.4, Chloride Level 100, Carbon Dioxide Level 26, Anion Gap 11, Blood Urea Nitrogen 18, Creatinine 1.22, Estimat Glomerular Filtration Rate 58, BUN/Creatinine Ratio 15, Glucose Level 304H, Calcium Level 9.1, Corrected Calcium 9.4, Total Bilirubin 0.9, Aspartate Amino Transf (AST/SGOT) 20, Alanine Aminotransferase (ALT/SGPT) 25, Alkaline Phosphatase 97, Troponin I < 0.028, Total Protein 6.0L, Albumin 3.6, Total Creatine Kinase 144, Triglycerides Level 218H, Cholesterol Level 113, LDL Cholesterol Direct 59, VLDL Cholesterol 44H, HDL Cholesterol 27L Radiology NAME: YOKASTA BALDWIN [facility] REC#: [id number] PT STATUS: REG ER : 1945 PHYSICIAN: VIDHYA ORTIZ MD ADMIT DATE: 07/17/18/ER Signed Date of Exam: 07/17/18 CHEST 1 VIEW, AP/PA ONLY INDICATION: Chest pain Frontal chest obtained at 6:16 p.m. and compared to 09/26/09. Heart and mediastinal silhouette are normal in appearance. The lungs are clear. There is no pneumothorax or pleural fluid. IMPRESSION: No acute process in the chest. Dictated by: Dictated on workstation # [id number] Dict: 07/17/18 182 Trans: 07/17/18 183 Interpreted by: ARAMIS SIMMONS MD Electronically signed by: ARAMIS SIMMONS MD 07/17/18 183 ECG Impression ECG Initial ECG Rhythm: Normal Sinus A/P-Cardiology Assessment/Admission Diagnosis Chest pain of undetermined etiology - no evidence of ACS UTI - management per medical services H/O CAD with report of stenting x7 approx 8 1/2 years ago at [facility] (Primary [employer] Dr. Skinner) Reports h/o stress test "several years ago" at [facility] which is reported to be normal Reports h/o carotid arterial disease followed by Dr. 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 Damon H/O prostate cancer Reports h/o "inoperable brain tumor" - followed by neurology services at [place], [place] with h/o frequent ENCISO's and chronic dizziness (MRI of the brain from August 2012 shows left middle cranial fossa mass suggestive of meningioma) H/O cervical vertebral fracture greater than 10 years ago DM 2 - insulin HTN HLD - statin tx GERD - PPI tx H/O cig tobacco use and chew tobacco use which he quit 5-6 years ago Discussion and Recomendations Chest pain of undetermined etiology - no evidence of ACS H/O CAD with stenting in the past at [facility] - will request records Advise continuation of home medications including ASA d/t reported h/o CAD and carotid arterial disease Echocardiogram to eval structure and function Start Protonix for symptoms suggestive of GERD - consideration for out pt endoscopy - management per medical services UTI with urinary retention - Dr. Damon is following and medical services Further recs will be based on his hospital course We would like to thank medical services for this consult Clinical Quality Measures AMI/AHF: ASA po Prior to arrival: Yes DVT/VTE Risk/Contraindication: Risk Factor Score Per Nursin RFS Level Per Nursing on Admit: 3=High NISA LEW July 18, 2018 09:38
--- NOTE | 2018-07-18 09:58 | History & Physical-Hospitalist ---
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 Patient had come to ER Saturday for urinary retention and Thibodeaux cath was placed and he malfunctioned so he went to [place] [facility] and they replaced the catheter but then yesterday he began experiencing chest burning and Cardiology recommended admit for risk factor stratification. Patient is difficult to follow but it appears he has a h/o an inoperable brain tumor also. ECHO has been ordered by Dr Martinez and we will confirm his meds and schedule more testing depending on necessity. Source: patient, RN/MD, old records Exam Limitations: no limitations Date Seen 07/18/18 Time Seen by a Provider: 09:30 Attending Physician Kymberly Martinez DO PCP No,Local Physician Referring Physician Date of Admission July 17, 2018 at 18:37 Home Medications & Allergies Home Medications Reviewed patient Home Medication Reconciliation performed by pharmacy medication reconciliations rv repair technician and/or nursing. Patients Allergies have been reviewed. Allergies Allergies Coded Allergies meperidine (Verified Allergy, Severe, Mental Confusion, 07/16/18) Past Xgzemcv-[id number]-Ghqhar Hx Past Med/Social Hx: Reviewed Nursing Past Med/Soc Hx, Reviewed and Corrections made Patient Social History Marrital Status: Employed/Student: retired Alcohol Use: Denies Use Recreational Drug Use: No Smoking Status: Former Smoker Type Used: Smokeless Tobacco 2nd Hand Smoke Exposure: No Physical Abuse Screen: No Sexual Abuse: No Recent Foreign Travel: No Contact w/other who traveled: No Recent Hopitalizations: No Recent Infectious Disease Expo: No Immunizations Up To Date Tetanus Booster (TDap): Unknown Pediatric: No Date of Pneumonia Vaccine: Dec 02, 2018 Seasonal Allergies Seasonal Allergies: No Past Medical History Surgeries: Coronary Stent Respiratory: COPD, Sleep Apnea Currently Using CPAP: No Currently Using BIPAP: No Cardiac: Coronary Artery Disease, High Cholesterol Reproductive: No Genitourinary: Benign Prostatic Hyperpl, Prostate Problems Gastrointestinal: Gall Bladder Disease Endocrine: Diabetes, Insulin dep Cancer: Prostate, Skin Did You Recieve Any Treatments: Yes What Type of Treatment Did You: Radiation, Surgical Intervention History of Blood Disorders: No Adverse Reaction to Blood Topete: No Family History Reviewed Nursing Family Hx Patient reports no known family medical history. No Pertinent Family Hx Review of Systems Constitutional: see HPI, weakness EENTM: no symptoms reported Respiratory: no symptoms reported Cardiovascular: chest pain Gastrointestinal: no symptoms reported Genitourinary: hesitancy Musculoskeletal: no symptoms reported Skin: no symptoms reported Psychiatric/Neurological: No Symptoms Reported All Other Systems Reviewed Negative Unless Noted: Yes Physical Exam Physical Exam Vital Signs Vital Signs - First Documented 07/17/18 07/17/18 07/17/18 17:40 18:22 20:20 Temp 99.1 Pulse 75 Resp 15 B/P (MAP) 122/63 (82) Pulse Ox 99 O2 Delivery Nasal Cannula O2 Flow Rate 3.00 Capillary Refill : Less Than 3 Seconds Height, Weight, BMI Height: 6'0.00" Weight: 220lbs. 0.0oz. 99.513978go; 29.8 BMI Method:Stated General Appearance: No Apparent Distress, WD/WN, Chronically ill, Obese Eyes: Right Eye Normal Inspection, Right Eye PERRL HEENT: PERRL/EOMI, Normal ENT Inspection, Pharynx Normal, Moist Mucous Membranes Neck: Full Range of Motion, Normal Inspection, Non Tender Respiratory: Chest Non Tender, Lungs Clear, Normal Breath Sounds, No Accessory Muscle Use, No Respiratory Distress, Decreased Breath Sounds Cardiovascular: Regular Rate, Rhythm, No Edema, No Gallop, No JVD, No Murmur, Normal Peripheral Pulses Gastrointestinal: Normal Bowel Sounds, No Organomegaly, No Pulsatile Mass, Non Tender, Soft Back: Normal Inspection, No CVA Tenderness, No Vertebral Tenderness Extremity: Normal Capillary Refill, Normal Inspection, Normal Range of Motion, Non Tender, No Calf Tenderness, No Pedal Edema Neurologic/Psychiatric: Alert, Oriented x3, No Motor/Sensory Deficits, Normal Mood/Affect Skin: Normal Color, Warm/Dry Lymphatic: No Adenopathy Results Results/Procedures Labs Laboratory Tests 07/17/18 17:40 07/18/18 05:52 Patient resulted labs reviewed. Assessment/Plan Admission Diagnosis Assessment: Chest pain CAD w/stents in past Obesity Urinary retention Lip cancer s/p excision Prostate cancer hx Inoperable brain tumor HTN COPD Presumed SAYDA Plan: ECHO Dr Martinez and Dr Damon are appreciated Home meds evaluation Admission Status: Observation Diagnosis/Problems Diagnosis/Problems (1) Chest pain Status: Acute Qualifiers: Chest pain type: unspecified Qualified Codes: R07.9 - Chest pain, unspecified (2) Diabetes mellitus Status: Chronic Qualifiers: Diabetes mellitus type: type 2 Diabetes mellitus fpc insulin use: without middle or intermediate school principal use Diabetes mellitus complication status: with unspecified complications Qualified Codes: E11.8 - Type 2 diabetes mellitus with unspecified complications (3) Obesity Status: Chronic Qualifiers: Obesity type: due to excess calories Obesity classification: adult class 1 (BMI 30 - 34.9) Body mass index: BMI 30.0-30.9 (4) Prostate cancer Status: Chronic (5) Neoplasm of brain in adult Status: Chronic (6) Urinary retention Status: Acute Clinical Quality Measures AMI/AHF: ASA po Prior to arrival: Yes DVT/VTE Risk/Contraindication: Risk Factor Score Per Nursin RFS Level Per Nursing on Admit: 3=High KYMBERLY MARTINEZ DO July 18, 2018 09:58
[2018-07-18] MEDS ORDERED: PANTOPRAZOLE 40 MG (PROTONIX) VIAL IV NR (10:00)
[2018-07-18] MEDS: BETHANECHOL 25 MG (URECHOLINE) TAB PO SCH ×3 (10:15→21:36)
--- NOTE | 2018-07-18 11:24 | NUR ---
Pt is [facility]. Declines Communion for now but is open to road crew member visit.
[2018-07-18] MEDS: ANTACID SUSP 30 ML UDC (MYLANTA) PO SCH ×3 (14:32→21:35)
[2018-07-18] MEDS ORDERED: CLOPIDOGREL 75 MG (PLAVIX) TABLET PO NR (15:00)
[2018-07-18 15:19] VITALS: BP 156/96
--- NOTE | 2018-07-18 16:33 | Consultation-Cardiology ---
HPI-Cardiology Cardiology Consultation: Date of Consultation 07/18/18 Time Seen by a Provider: 14:20 Date of Admission Attending Physician Kymberly Avitia DO Admitting Physician No,Local Physician Consulting Physician WALLY EMERSON MD, MA, FACP, FACC, [facility], CCDS HPI: Chief Complaint: CC: Chest pain HPI Mr. Boyce is a 73 year old male admitted to [facility] from the ED. He reports on Saturday he had surgery in [place], [place] d/t lip cancer. He reports he went home and Saturday was unable to urinate. He came to the ED where a urinary catheter was placed with leg beg and he was discharged home. He reports Saturday morning he was having abdominal pain and bloating. He then went to the [facility] ED at which time the catheter was replaced. He states he has been having a "burning sensation" in his chest without radiation for a few days. He states last evening he again he was having abdominal pain and bloating, he felt his catheter was not draining so he came to the ED. He reports he had burning in his chest again which had been present off and on for several days. He reports no change in the discomfort with activity or rest. He is unsure how long the episodes would last, but at least several hours. He reports when he arrived to his room from the ED the burning in his chest was still present, but much less than before. He states this morning he had some worsening in the discomfort. He also felt diaphoretic. He states it lasted for a few minutes after he had taken off his oxygen, but improved after using the BR and putting his oxygen back on. He reports having fever and chills at home. He has chronic mod exertional dyspnea, which he felt had been somewhat worse the last few days. He reports he has had a frequent cough which is occ prod with clear sputum. He reports he wears oxygen at and has been for the last 3 months. He denies any palpitations, syncope, near syncope or LE swelling. His primary career manager is Dr. Skinner at [facility] in [place], [place]. Review of Systems-Cardiology Review of Systems Constitutional: chills, fever, malaise Eyes: No vision change Ears/Nose/Throat: No epistaxis, No recent hearing loss, No ulcerations Respiratory: As described under HPI Cardiovascular: As described under HPI Gastrointestinal: constipation; No diarrhea, No nausea, No vomiting Genitourinary: dysuria, other (retention) Musculoskeletal: joint pain Skin: No rash, No ulcerations Psychiatric/Neurological: No anxiety, No depression, No seizure, No focal weakness, No syncope Hematologic: No bleeding abnormalities All Other Systems Reviewed Negative Unless Noted: Yes [id number] Hx Patient Social History Marrital Status: Employed/Student: retired Alcohol Use: Denies Use Recreational Drug Use: No Smoking Status: Former Smoker Type Used: Smokeless Tobacco 2nd Hand Smoke Exposure: No Recent Foreign Travel: No Recent Infectious Disease Expo: No Hospitalization with Isolation: Denies Physical Abuse Screen: No Sexual Abuse: No Immunizations Up To Date Tetanus Booster (TDap): Unknown Date of Pneumonia Vaccine: Dec 02, 2018 Past Medical History PMH As described under Assessment. Family Medical History Family Medical History: Reports he was adopted and does not know any family medical history. Family History: Patient reports no known family medical history. Allergies and Home Medications Allergies Coded Allergies: meperidine (Verified Allergy, Severe, Mental Confusion, 07/16/18) Home Medications Acetaminophen 500 Mg Tablet, 1,000 MG PO DAILY PRN for PAIN-MILD, (Reported) Alprazolam 0.5 Mg Tablet, 0.5 MG PO TID PRN for ANXIETY, (Reported) Aspirin 81 Mg Tablet.dr, 162 MG PO DAILY, (Reported) TAKES 2 (81MG) TABLETS Benazepril HCl 5 Mg Tablet, 5 MG PO DAILY, (Reported) Cephalexin 500 Mg Capsule, 500 MG PO Q8H, (Reported) 5 DAY THEARPY FILLED 07-15-18 Escitalopram Oxalate 10 Mg Tablet, 10 MG PO HS, (Reported) Insulin NPH Hum/Reg Insulin Hm 100 Unit/1 Ml Vial, 80 UNITS SC BID, (Reported) Neomycin Tillman/Bacitrac Zn/Poly 28.3 Gm Oint...g., TP TID, (Reported) APPLY TO LIPS Pantoprazole Sodium 40 Mg Tablet.dr, 40 MG PO DAILY, (Reported) Potassium Chloride 10 Meq Tablet.er, 10 MEQ PO DAILY, (Reported) Simvastatin 20 Mg Tablet, 10 MG PO HS, (Reported) TAKES 1/2 (20MG) TABLETS Tamsulosin HCl 0.4 Mg Cap, 0.4 MG PO BID, (Reported) Patient Home Medication List Home Medication List Reviewed: Yes Physical Exam-Cardiology Physical Exam Vital Signs/I&O 07/18/18 07/18/18 07/18/18 07/18/18 07:28 08:00 08:03 13:22 Temp 98.3 Pulse 55 72 76 Resp 18 B/P (MAP) 147/81 (103) Pulse Ox 97 97 O2 Delivery Nasal Cannula Nasal Cannula O2 Flow Rate 3.00 3.00 07/18/18 15:19 Temp 98.0 Pulse 69 Resp 16 B/P (MAP) 156/96 (116) Pulse Ox 90 O2 Delivery Room Air Capillary Refill : Less Than 3 Seconds Constitutional: AAO x 3, well-developed, well-nourished HEENT: PERRL, hearing is well preserved, oral hygience is good Neck: carotid bruit, carotid pulses are 2 + bilaterally Respiratory: No accessory muscle use, No respiratory distress; chest expansion is symmetric, chest is bilaterally symmetric, rhonchi (scattered), other (prolonged expiratory phase) Cardiovascular: regular rate-rhythm; No JVD; S1 and S2, systolic murmur Gastrointestinal: No tender; soft, round, audible bowel sounds Rectal: deferred Genital/Rectal: other (Urinary catheter to leg bag - clear, yellow urine) Extremities: no lower extremity edema bilateral Neurologic/Psychiatric: grossly intact, power is 5/5 both on sides Skin: No rash, No ulcerations Data Review Labs Laboratory Tests 07/17/18 17:40: White Blood Count 9.7, Red Blood Count 4.91, Hemoglobin 14.3, Hematocrit 42, Mean Corpuscular Volume 86, Mean Corpuscular Hemoglobin 29, Mean Corpuscular Hemoglobin Concent 34, Red Cell Distribution Width 14.0, Platelet Count 269, Mean Platelet Volume 10.1, Neutrophils (%) (Auto) 70, Lymphocytes (%) (Auto) 16, Monocytes (%) (Auto) 12, Eosinophils (%) (Auto) 1, Basophils (%) (Auto) 0, Neutrophils # (Auto) 6.8, Lymphocytes # (Auto) 1.6, Monocytes # (Auto) 1.2H, Eosinophils # (Auto) 0.1, Basophils # (Auto) 0.0, Prothrombin Time 13.9, INR Comment 1.0, Activated Partial Thromboplast Time 25, Sodium Level 138, Potassium Level 3.5L, Chloride Level 100, Carbon Dioxide Level 25, Anion Gap 13, Blood Urea Nitrogen 18, Creatinine 1.16, Estimat Glomerular Filtration Rate > 60, BUN/Creatinine Ratio 16, Glucose Level 112H, Lactic Acid Level 1.92, Calcium Level 9.2, Corrected Calcium 9.3, Magnesium Level 1.6L, Total Bilirubin 0.9, Aspartate Amino Transf (AST/SGOT) 25, Alanine Aminotransferase (ALT/SGPT) 32, Alkaline Phosphatase 91, Myoglobin 216.3H, Troponin I < 0.028, C-Reactive Protein High Sensitivity 3.79H, B-Type Natriuretic Peptide 14.5, Total Protein 6.2L, Albumin 3.9 07/17/18 18:15: Urine Color YELLOW, Urine Clarity CLEAR, Urine pH 7, Urine Specific Alleman 1.005L, Urine Protein 3+H, Urine Glucose (UA) NEGATIVE, Urine Ketones NEGATIVE, Urine Nitrite NEGATIVE, Urine Bilirubin NEGATIVE, Urine Urobilinogen 1, Urine Leukocyte Esterase 3+H, Urine RBC (Auto) 4+H, Urine RBC 10-25H, Urine WBC 10-25H , Urine Crystals NONE, Urine Bacteria TRACE, Urine Casts NONE, Urine Mucus N EGATIVE, Urine Culture Indicated YES 07/17/18 23:49: Troponin I < 0.028, Total Creatine Kinase 174 07/18/18 05:52: White Blood Count 7.0, Red Blood Count 4.89, Hemoglobin 14.0, Hematocrit 43, Mean Corpuscular Volume 88, Mean Corpuscular Hemoglobin 29, Mean Corpuscular Hemoglobin Concent 33, Red Cell Distribution Width 14.1, Platelet Count 243, Mean Platelet Volume 10.0, Neutrophils (%) (Auto) 70, Lymphocytes (%) (Auto) 18, Monocytes (%) (Auto) 11, Eosinophils (%) (Auto) 1, Basophils (%) (Auto) 0, Neutrophils # (Auto) 4.9, Lymphocytes # (Auto) 1.3, Monocytes # (Auto) 0.8, Eosinophils # (Auto) 0.1, Basophils # (Auto) 0.0, Sodium Level 137, Potassium Level 4.4, Chloride Level 100, Carbon Dioxide Level 26, Anion Gap 11, Blood Urea Nitrogen 18, Creatinine 1.22, Estimat Glomerular Filtration Rate 58, BUN/Creatinine Ratio 15, Glucose Level 304H, Calcium Level 9.1, Corrected Calcium 9.4, Total Bilirubin 0.9, Aspartate Amino Transf (AST/SGOT) 20, Alanine Aminotransferase (ALT/SGPT) 25, Alkaline Phosphatase 97, Troponin I < 0.028, Total Protein 6.0L, Albumin 3.6, Total Creatine Kinase 144, Triglycerides Level 218H, Cholesterol Level 113, LDL Cholesterol Direct 59, VLDL Cholesterol 44H, HDL Cholesterol 27L Microbiology 07/17/18 Blood Culture - Preliminary, Resulted No growth A/P-Cardiology Assessment/Admission Diagnosis Chest pain of undetermined etiology - no evidence of ACS UTI - management per Medical Services H/O CAD with report of stenting x7 approx 8 1/2 years ago at [facility] (Primary Payroll Bookkeeper Dr. Skinner) Reports h/o stress test "several years ago" at [facility] which is reported to be normal Reports h/o carotid arterial disease followed by Dr. Skinner at [facility] Recent surgery with partial removal of bottom lip at [place], [place] on Saturday morning d/t lip cancer H/O urinary retention for which he had a urinary catheter place on Saturday evening (July 15) at [facility] then replaced on Saturday at [facility] - follows with Dr. Damon H/O prostate cancer Reports h/o "inoperable brain tumor" - followed by neurology services at [place], [place] with h/o frequent ENCISO's and chronic dizziness (MRI of the brain from August 2012 shows left middle cranial fossa mass suggestive of meningioma) H/O cervical vertebral fracture greater than 10 years ago DM 2 - insulin HTN HLD - statin tx GERD - PPI tx H/O cig tobacco use and chew tobacco use which he quit 5-6 years ago Discussion and Recomendations * Advise continuation of home medications including ASA d/t reported h/o CAD and carotid arterial disease. Add Plavix * Echocardiogram to eval structure and function * Start Protonix for symptoms suggestive of GERD - consideration for out pt endoscopy - management per Medical Services * UTI with urinary retention - Dr. Damon is following along with the Medical Services * Cardiac risk factor modification reviewed with him * Further recs will be based on his hospital course Clinical Quality Measures AMI/AHF: ASA po Prior to arrival: Yes DVT/VTE Risk/Contraindication: Risk Factor Score Per Nursin RFS Level Per Nursing on Admit: 3=High WALLY EMERSON MD FACP FAC CCDS July 18, 2018 16:33
--- NOTE | 2018-07-18 16:41 | NUR ---
Pt lives near [place], [place] with his who is disabled. Pt has been independent but does have a Homemaker to assist him 5 hours a wee as pt no longer drives. His daughter Rylie assists him also. Pt is planning on discharge tomorrow and states he has no continued care needs at this time.
[2018-07-18] MEDS: inSUlin NPH/REG (NovoLIN 70/30) CHARGE PER UNIT SQ SCH (17:25)
[2018-07-18] MEDS: ACETAMINOPHEN 325 MG TABLET PO PRN (17:54)
[2018-07-18 19:15] VITALS: BP 147/77
[2018-07-18] MEDS ORDERED: SIMvastatin 10 MG (ZOCOR) TAB PO SCH (21:00)
[2018-07-18] MEDS ORDERED: SIMvastatin 20 MG (ZOCOR) TAB PO SCH (21:00)
[2018-07-18] MEDS: inSUlin ASPART (NovoLOG) 1 UNIT/0.01 ML (CHARGE PER UNIT) SC SCH (21:35)
[2018-07-18] MEDS: ALPRAZolam 0.5 MG (XANAX) TAB PO PRN (22:10)
[2018-07-19] VITALS: BP 144/79
[2018-07-19 04:30] VITALS: BP 152/67
--- NOTE | 2018-07-19 06:15 | CONSULTATION REPORT ---
DATE OF SERVICE: 07/18/2018 ATTENDING PHYSICIAN: Dr. Avitia. SUMMARY: A 73-year-old white man known to be because of history of cancer of the prostate, treated with IMRT and IGRT, was doing fairly well, seen regularly at the office. He has some voiding issues and was controlled well on Flomax 0.4 mg b.i.d. He presented to the emergency room here in urinary retention. Catheter was inserted. Then, he presented again to our ER complaining of some chest pain and was admitted. He still have the leg bag, no large bag. IMPRESSION: Urinary retention. PLAN: Keep him on Flomax b.i.d. Connect the catheter to a large bag and start him on Urecholine 25 a.c. and at bedtime and manage accordingly. Job ID: [id number] DocumentID: [id number] Dictated Date: 07/18/2018 09:09:26 It Systems Engineer Date: 07/18/2018 11:47:04 Dictated By: YOVANY ARVIZU MD
[2018-07-19] MEDS: inSUlin ASPART (NovoLOG) 1 UNIT/0.01 ML (CHARGE PER UNIT) SC SCH ×2 (06:23→12:26)
[2018-07-19 06:30] LABS: HEMOGLOBIN 14.5 G/DL (13.3-17.7); RED CELL DISTRIBUTION WIDTH 13.6 % (10.0-14.5)
[2018-07-19] MEDS: BETHANECHOL 25 MG (URECHOLINE) TAB PO SCH ×2 (06:41→12:26)
[2018-07-19] MEDS: ACETAMINOPHEN 325 MG TABLET PO PRN (06:41)
[2018-07-19] MEDS: inSUlin NPH/REG (NovoLIN 70/30) CHARGE PER UNIT SQ SCH (06:42)
[2018-07-19 06:49] LABS: BUN/CREATININE RATIO 17; CALCIUM 9.4 MG/DL (8.5-10.1); CARBON DIOXIDE 24 MMOL/L (21-32); CHLORIDE 99 MMOL/L (98-107); CREATININE SERUM 0.98 MG/DL (0.60-1.30); GFR ESTIMATED > 60; GLUCOSE 155 MG/DL (70-105); MAGNESIUM 2.3 MG/DL (1.8-2.4); POTASSIUM 3.9 MMOL/L (3.6-5.0); SODIUM 136 MMOL/L (135-145)
[2018-07-19] MEDS ORDERED: PANTOPRAZOLE 40 MG (PROTONIX) TAB PO SCH (07:00)
[2018-07-19 07:28] VITALS: BP 176/82
[2018-07-19] MEDS: ASPIRIN E.C. 81 MG (ECOTRIN) TAB PO SCH (08:57)
[2018-07-19] MEDS: ANTACID SUSP 30 ML UDC (MYLANTA) PO SCH (08:57)
[2018-07-19] MEDS ORDERED: lisINopril 5 MG (PRINIVIL) TABLET PO SCH (09:00)
[2018-07-19] MEDS ORDERED: CLOPIDOGREL 75 MG (PLAVIX) TABLET PO SCH (09:00)
[2018-07-19] MEDS ORDERED: BENAZEPRIL HCL 5 MG PO SCH (09:00)
[2018-07-19] MEDS ORDERED: Bethanechol Chl PO (10:45)
[2018-07-19] MEDS ORDERED: TAMS0.4C98 PO (10:45)
[2018-07-19] MEDS ORDERED: CLOP75TA69 PO (10:48)
--- NOTE | 2018-07-19 10:51 | Discharge Summary-Hospitalist ---
Diagnosis/Chief Complaint Date of Admission July 17, 2018 at 18:37 Date of Discharge July 19, 2018 Discharge Date: July 19, 2018 Discharge Time: 12:00 Admission Diagnosis Assessment: Chest pain CAD w/stents in past Obesity Urinary retention Lip cancer s/p excision Prostate cancer hx Inoperable brain tumor HTN COPD Presumed SAYDA Plan: ECHO Dr Martinez and Dr Damon are appreciated Home meds evaluation Discharge Diagnosis Chest pain uncertain etiology no evidence of ACS Acute urinary retention Coronary artery disease with history of stent placement. COPD with nocturnal O2 use. Inoperable brain tumor. Status post excision of lip cancer Hypertension (1) Chest pain Status: Acute (2) Diabetes mellitus Status: Chronic (3) Obesity Status: Chronic (4) Prostate cancer Status: Chronic (5) Neoplasm of brain in adult Status: Chronic (6) Urinary retention Status: Acute Discharge Summary Procedures/Consulations Dr. Marisol Martinez Echo Discharge Physical Exam Allergies: Coded Allergies: meperidine (Verified Allergy, Severe, Mental Confusion, 07/16/18) Vitals & I&Os Vital Signs Date Time Temp Pulse Resp B/P (MAP) Pulse Ox O2 Delivery O2 Flow Rate FiO2 07/19/18 07:28 98.2 68 18 176/82 (113) 94 Room Air 07/18/18 20:17 3.00 General Appearance: No Apparent Distress, WD/WN HEENT: Other (Postop surgical changes of the lower lip) Respiratory: Chest Non Tender, Lungs Clear, Normal Breath Sounds, No Accessory Muscle Use, No Respiratory Distress Cardiovascular: Regular Rate, Rhythm, No Gallop, No Murmur, Normal Peripheral Pulses Gastrointestinal: Normal Bowel Sounds, Non Tender, Soft Extremity: Normal Capillary Refill, Non Tender, No Calf Tenderness Skin: Normal Color, Warm/Dry Neurologic/Psychiatric: Alert, Oriented x3, No Motor/Sensory Deficits, Normal Mood/Affect Hospital Course Was the Problem List Reviewed?: Yes Patient was admitted with chest discomfort and urinary retention. The patient had a Thibodeaux catheter placed and was seen in consultation by Dr. Damon. The patient was started on Flomax twice a day and Urecholine before meals and before bed. Dr. Damon wished that the patient be discharged with Thibodeaux catheter in place and close follow-up. Dr. Brito saw the patient consultation for chest pain and found no evidence of an acute coronary syndrome. He recommended patient be started on Plavix and follow-up as an outpatient. Cardiac enzymes were negative and there was no evidence of myocardial infarction. The patient has had intermittent reflux type symptoms that he believes are accountable for his chest discomfort. The patient's primary complaint has been regarding the surgery he had for his lip cancer. Blood sugars remained somewhat labile. Urine culture was negative. Echocardiogram was obtained which showed concentric left ventricular hypertrophy and diastolic dysfunction with the ejection fraction of 55 percent Labs (last 24 hrs) Laboratory Tests 07/18/18 21:16: Glucometer 395H 07/19/18 06:05: White Blood Count 8.0, Red Blood Count 4.97, Hemoglobin 14.5, Hematocrit 43, Mean Corpuscular Volume 87, Mean Corpuscular Hemoglobin 29, Mean Corpuscular Hemoglobin Concent 34, Red Cell Distribution Width 13.6, Platelet Count 236, Mean Platelet Volume 10.0, Sodium Level 136, Potassium Level 3.9, Chloride Level 99, Carbon Dioxide Level 24, Anion Gap 13, Blood Urea Nitrogen 17, Creatinine 0.98, Estimat Glomerular Filtration Rate > 60, BUN/Creatinine Ratio 17, Glucose Level 155H, Calcium Level 9.4, Magnesium Level 2.3 07/19/18 06:22: Glucometer 167H Microbiology 07/17/18 Blood Culture - Preliminary, Resulted No growth 07/17/18 Urine Culture - Final, Complete NO GROWTH Patient resulted labs reviewed. Pending Labs Laboratory Tests 07/19/18 06:05: White Blood Count 8.0, Red Blood Count 4.97, Hemoglobin 14.5, Hematocrit 43, Mean Corpuscular Volume 87, Mean Corpuscular Hemoglobin 29, Mean Corpuscular Hemoglobin Concent 34, Red Cell Distribution Width 13.6, Platelet Count 236, Mean Platelet Volume 10.0, Sodium Level 136, Potassium Level 3.9, Chloride Level 99, Carbon Dioxide Level 24, Anion Gap 13, Blood Urea Nitrogen 17, Creatinine 0.98, Estimat Glomerular Filtration Rate > 60, BUN/Creatinine Ratio 17, Glucose Level 155, Calcium Level 9.4, Magnesium Level 2.3 07/19/18 06:22: Glucometer 167 Discussion & Recommendations Discharge Planning: >30 minutes discharge planning Discharge Home Medications: Active Scripts Active Plavix (Clopidogrel Bisulfate) 75 Mg Tablet 75 Mg PO DAILY 30 Days [Bethanechol Chl] 25 MG Tab 25 Mg PO ACHS 30 Days Flomax (Tamsulosin HCl) 0.4 Mg Cap 0.4 Mg PO BID 30 Days Reported Tylenol Extra Strength (Acetaminophen) 500 Mg Tablet 1,000 Mg PO DAILY PRN Neosporin Ointment (Neomycin Tillman/Bacitrac Zn/Poly) 28.3 Gm Oint...g. TP TID APPLY TO LIPS Simvastatin 20 Mg Tablet 10 Mg PO HS TAKES 1/2 (20MG) TABLETS Humulin 70-30 Vial (Insulin NPH Hum/Reg Insulin Hm) 100 Unit/1 Ml Vial 80 Units SC BID Potassium Chloride 10 Meq Tablet.er 10 Meq PO DAILY Cephalexin 500 Mg Capsule 500 Mg PO Q8H 5 Days 5 DAY THEARPY FILLED 07-15-18 Pantoprazole Sodium 40 Mg Tablet.dr 40 Mg PO DAILY Aspir 81 (Aspirin) 81 Mg Tablet.dr 162 Mg PO DAILY TAKES 2 (81MG) TABLETS Xanax (Alprazolam) 0.5 Mg Tablet 0.5 Mg PO TID PRN Lexapro (Escitalopram Oxalate) 10 Mg Tablet 10 Mg PO HS Benazepril HCl 5 Mg Tablet 5 Mg PO DAILY Condition at discharge Stable Instructions to patient/family Please see electronic discharge instructions given to patient. Clinical Quality Measures Admission Status Admission Status: Observation AMI/AHF: ASA po Prior to arrival: Yes DVT/VTE Risk/Contraindication: Risk Factor Score Per Nursin RFS Level Per Nursing on Admit: 3=High Problem Qualifiers (1) Chest pain: Chest pain type: unspecified Qualified Codes: R07.9 - Chest pain, unspecified (2) Diabetes mellitus: Diabetes mellitus type: type 2 Diabetes mellitus manager intermediate insulin use: without manager intermediate use Diabetes mellitus complication status: with unspecified complications Qualified Codes: E11.8 - Type 2 diabetes mellitus with unspecified complications (3) Obesity: Obesity type: due to excess calories Obesity classification: adult class 1 (BMI 30 - 34.9) Body mass index: BMI 30.0-30.9 ABBY QUINN MD July 19, 2018 10:51
[2018-07-19] MEDS: ALPRAZolam 0.5 MG (XANAX) TAB PO PRN (12:26)
--- NOTE | 2018-07-19 13:20 | NUR ---
THIS RN GAVE PATIENT DISCHARGE INSTRUCTIONS AND PATIENT EDUCATION. PATIENT GOING HOME WITH LUA CATH. THIS RN OFFERED PATIENT A DIRECT DRAINAGE/LEG BAG TO PATIENT PER NURSING ORDER FROM DR. ARVIZU. PATIENT REFUSED LEG BAG AND STATED "IT IS MORE OF A HARESH THAN IT IS WORTH. I'VE USED A LEG BAG BEFORE. THE REGULAR BAG IS FINE."
== END 2018-07-19 13:20 | disposition home or self-care (01) ==
LOC: EDUNIT# 17:27 → ER 17:28 → 4TH 18:37
PROVIDERS: ADMIT Internal Medicine; ATTEND Internal Medicine
DX: R07.9 Chest pain, unspecified (principal); I25.10 Atherosclerotic heart disease of native coronary artery without angina pectoris; E66.9 Obesity, unspecified; R33.9 Retention of urine, unspecified; D49.6 Neoplasm of unspecified behavior of brain; Z68.30 Body mass index [BMI] 30.0-30.9, adult; N39.0 Urinary tract infection, site not specified; E11.8 Type 2 diabetes mellitus with unspecified complications; Z79.4 Long term (current) use of insulin; Z79.82 Long term (current) use of aspirin; Z79.899 Other long term (current) drug therapy; I11.9 Hypertensive heart disease without heart failure; Z87.891 Personal history of nicotine dependence; Z85.46 Personal history of malignant neoplasm of prostate; Z85.819 Personal history of malignant neoplasm of unspecified site of lip, oral cavity, and pharynx; Z95.5 Presence of coronary angioplasty implant and graft; K21.9 Gastro-esophageal reflux disease without esophagitis
CPT/HCPCS: 36415; 71045; 80048; 80053; 80061; 81000; 82550; 82962; 83605; 83735; 83874; 83880; 84484; 85025; 85027; 85610; 85730; 86141; 87040; 87088; 93005; 93041; 93306

== ENCOUNTER 2018-08-04 14:22 | Outpatient (CLI) | payer MEDICARE, MEDICAID ==
[~2018-08-04] VITALS: Ht 182.9 cm; Wt 117.5 kg
[~2018-08-04 14:22] MED LIST changes: +ACET-2267 PO; +Bethanechol Chl PO; +CEPH500C PO; +CLOP75TA69 PO; +HUM100VI SC; +NEOM28.33 TP; +POTA10TA10 PO; +SIMV20TA3 PO; +TAMS0.4C98 PO
[2018-08-04 14:34] VITALS: BP 138/75
[2018-08-04] MEDS ORDERED: BETH25TA11 PO (14:49)
[2018-08-04] MEDS ORDERED: CLOP75TA28 PO (14:49)
[2018-08-04] MEDS ORDERED: TAMS0.4C98 PO (14:49)
== END 2018-08-04 15:15 | disposition home or self-care (01) ==
LOC: PREOP 14:22
PROVIDERS: ATTEND Urology
DX: Z01.818 Encounter for other preprocedural examination (principal)
CPT/HCPCS: 87081

== ENCOUNTER 2018-08-06 07:22 | Inpatient (IN) | payer MEDICARE, MEDICAID ==
[~2018-08-06] VITALS: Ht 182.9 cm; Wt 117.5 kg
[2018-08-06] VITALS (14 sets, daily range): BP systolic 132–206; BP diastolic 77–96
[~2018-08-06 07:22] MED LIST changes: +BETH25TA11 PO; +CLOP75TA28 PO
--- OUTSIDE RECORDS SUMMARY | 2018-08-06 07:25 | XMS REPORT | Continuity of Care Document ---
Author Organization Unknown Address Unknown Allergies Active Description Code Type Severity Reaction Onset Reported/Identified Relationship to Patient Clinical Status Yes No Known Drug Allergies [id number] Drug Allergy Unknown N/A 09/26/2009 Yes meperidine [id number] Drug Allergy Severe Mental Confusio 07/16/2018 Medications There is no data. 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 05/02/2018 BEBO CONNER MD, Ot H25.12 AGE-RELATED NUCLEAR CATARACT, LEFT EYE 05/02/2018 BEBO CONNER MD, Ot H57.03 MIOSIS 05/02/2018 BEBO CONNER MD Ot I10 ESSENTIAL (PRIMARY) HYPERTENSION 05/02/2018 BEBO CONNER MD, Ot I25.10 ATHSCL HEART DISEASE OF [place] CORONARY 05/02/2018 BEBO CONNER MD, Ot Z79.4 DIRECTOR DESIGN (CURRENT) USE OF INSULIN 05/02/2018 BEBO CONNER MD Ot Z79.82 DIRECTOR DESIGN (CURRENT) USE OF ASPIRIN 05/02/2018 BEBO CONNER MD, Ot Z79.899 OTHER SKILLED NURSING (CURRENT) DRUG THERAPY 05/02/2018 BEBO CONNER MD, Ot Z87.891 PERSONAL HISTORY OF NICOTINE DEPENDENCE 05/02/2018 BEBO CONNER MD, Ot Z95.5 PRESENCE OF CORONARY ANGIOPLASTY IMPLANT 05/06/2018 BEBO CONNER MD, Ot 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 05/06/2018 BEBO CONNER MD, Ot 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 05/06/2018 BEBO CONNER MD Ot H57.03 MIOSIS 05/06/2018 BEBO CONNER MD Ot I10 ESSENTIAL (PRIMARY) HYPERTENSION 05/06/2018 BEBO CONNER MD Ot I25.10 ATHSCL HEART DISEASE OF [place] CORONARY 05/06/2018 BEBO CONNER MD Ot Z79.4 SKILLED NURSING (CURRENT) USE OF INSULIN 05/06/2018 BEBO CONNER MD Ot Z79.82 SKILLED NURSING (CURRENT) USE OF ASPIRIN 05/06/2018 BEBO CONNER MD, Ot Z79.899 OTHER DIRECTOR DESIGN (CURRENT) DRUG THERAPY 05/06/2018 BEBO CONNER MD, Ot Z87.891 PERSONAL HISTORY OF NICOTINE DEPENDENCE 05/06/2018 BEBO CONNER MD Ot 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 PRESENCE OF CORONARY ANGIOPLASTY IMPLANT 07/18/2018 ERLIN WRIGHT Ot E11.9 TYPE 2 DIABETES MELLITUS WITHOUT COMPLIC 07/18/2018 ERLIN WRIGHT Ot E78.00 PURE HYPERCHOLESTEROLEMIA, UNSPECIFIED 07/18/2018 ERLIN WRIGHT Ot F17.200 NICOTINE DEPENDENCE, UNSPECIFIED, UNCOMP 07/18/2018 ERLIN WRIGHT Ot J44.9 CHRONIC OBSTRUCTIVE PULMONARY DISEASE, U 07/18/2018 ERLIN WRIGHT Ot R30.0 DYSURIA 07/18/2018 ERLIN WRIGHT Ot R33.9 RETENTION OF URINE, UNSPECIFIED 07/18/2018 ERLIN WRIGHT Ot Z79.4 DIRECTOR DESIGN (CURRENT) USE OF INSULIN 07/18/2018 ERLIN WRIGHT Ot Z79.82 DIRECTOR DESIGN (CURRENT) USE OF ASPIRIN 07/18/2018 ERLIN WRIGHT Ot Z85.46 PERSONAL HISTORY OF MALIGNANT NEOPLASM O 07/18/2018 ERLIN WRIGHT Ot Z85.828 PERSONAL HISTORY OF OTHER MALIGNANT NEOP 07/18/2018 ERLIN WRIGHT Ot Z88.8 ALLERGY STATUS TO OTH DRUG/MEDS/BIOL SUB 07/18/2018 ERLIN WRIGHT Ot Z92.21 PERSONAL HISTORY OF ANTINEOPLASTIC CHEMO 07/19/2018 MARKUS MARTINEZ DO Ot 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 [place] 07/19/2018 MARKUS MARTINEZ DO Ot E11.8 TYPE 2 DIABETES MELLITUS WITH UNSPECIFIE 07/19/2018 MARTINEZ DO, MARKUS Ot E66.9 OBESITY, UNSPECIFIED 07/19/2018 MARTINEZ DO, MARKUS Ot 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 07/19/2018 JUAN DO MARKUS Ot I25.10 ATHSCL HEART DISEASE OF [place] CORONARY 07/19/2018 MARTINEZ DO MARKUS Ot K21.9 GASTRO-ESOPHAGEAL REFLUX DISEASE WITHOUT 07/19/2018 MARTINEZ DO, MARKUS Ot N39.0 URINARY TRACT INFECTION, SITE NOT SPECIF 07/19/2018 JUAN CONTRERAS MARKUS Ot R07.9 CHEST PAIN, UNSPECIFIED 07/19/2018 JUAN DO MARKUS Ot R33.9 RETENTION OF URINE, UNSPECIFIED 07/19/2018 JUAN DO MARKUS Ot Z68.30 BODY MASS INDEX (BMI) 30.0-30.9, ADULT 07/19/2018 JUAN CONTRERAS MARKUS Ot Z79.4 DIRECTOR DESIGN (CURRENT) USE OF INSULIN 07/19/2018 JUAN CONTRERAS MARKUS Ot Z79.82 DIRECTOR DESIGN (CURRENT) USE OF ASPIRIN 07/19/2018 JUAN CONTRERAS MARKUS Ot Z79.899 OTHER DIRECTOR DESIGN (CURRENT) DRUG THERAPY 07/19/2018 JUAN CONTRERAS MARKUS Ot Z85.46 PERSONAL HISTORY OF MALIGNANT NEOPLASM O 07/19/2018 JUAN CONTRERAS MARKUS Ot Z85.819 PRSNL HX OF ÁNGEL NEOPLM OF [facility] SITE LI 07/19/2018 JUAN CONTRERAS MARKUS Ot Z87.891 PERSONAL HISTORY OF NICOTINE DEPENDENCE 07/19/2018 JUAN CONTRERAS MARKUS Ot Z95.5 PRESENCE OF CORONARY ANGIOPLASTY IMPLANT 07/19/2018 JUAN CONTRERAS MARKUS Ot 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 [place] 07/19/2018 JUAN CONTRERAS MARKUS Ot E11.8 TYPE 2 DIABETES MELLITUS WITH UNSPECIFIE 07/19/2018 JUAN DO MARKUS Ot E66.9 OBESITY, UNSPECIFIED 07/19/2018 JUAN DO MARKUS Ot 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 07/19/2018 JUAN DO MARKUS Ot I25.10 ATHSCL HEART DISEASE OF [place] CORONARY 07/19/2018 JUAN DO MARKUS Ot K21.9 GASTRO-ESOPHAGEAL REFLUX DISEASE WITHOUT 07/19/2018 MARTINEZ DO, MARKUS Ot N39.0 URINARY TRACT INFECTION, SITE NOT SPECIF 07/19/2018 MARKUS MARTINEZ DO Ot R07.9 CHEST PAIN, UNSPECIFIED 07/19/2018 MARKUS MARTINEZ DO Ot R33.9 RETENTION OF URINE, UNSPECIFIED 07/19/2018 MARKUS MARTINEZ DO Ot Z68.30 BODY MASS INDEX (BMI) 30.0-30.9, ADULT 07/19/2018 MARKUS MARTINEZ DO Ot Z79.4 SKILLED NURSING (CURRENT) USE OF INSULIN 07/19/2018 DOROTEO MARTINEZ DOI Ot Z79.82 SKILLED NURSING (CURRENT) USE OF ASPIRIN 07/19/2018 DOROTEO MARTINEZ DOI Ot Z79.899 OTHER SKILLED NURSING (CURRENT) DRUG THERAPY 07/19/2018 MARKUS MARTINEZ DO Ot Z85.46 PERSONAL HISTORY OF MALIGNANT NEOPLASM O 07/19/2018 MARKUS MARTINEZ DO Ot Z85.819 PRSNL HX OF ÁNGEL JOVITAPLM OF [facility] SITE LI 07/19/2018 MARKUS MARTINEZ DO Ot Z87.891 PERSONAL HISTORY OF NICOTINE DEPENDENCE 07/19/2018 MARKUS MARTINEZ DO Ot Z95.5 PRESENCE OF CORONARY ANGIOPLASTY IMPLANT 07/22/2018 BHAKTI CRUZ MD Ot E11.65 TYPE 2 DIABETES MELLITUS WITH HYPERGLYCE 07/22/2018 BHAKTI CRUZ MD Ot E78.00 PURE HYPERCHOLESTEROLEMIA, UNSPECIFIED 07/22/2018 BHAKTI CRUZ MD, Ot J44.9 CHRONIC OBSTRUCTIVE PULMONARY DISEASE, U 07/22/2018 BHAKTI CRUZ MD, Ot R33.9 RETENTION OF URINE, UNSPECIFIED 07/22/2018 BHAKTI CRUZ MD Ot Z79.4 DIRECTOR DESIGN (CURRENT) USE OF INSULIN 07/22/2018 BHAKTI CRUZ MD Ot Z79.82 DIRECTOR DESIGN (CURRENT) USE OF ASPIRIN 07/22/2018 BHAKTI CRUZ MD Ot Z85.46 PERSONAL HISTORY OF MALIGNANT NEOPLASM O 07/22/2018 BHAKTI CRUZ MD, Ot Z85.828 PERSONAL HISTORY OF OTHER MALIGNANT NEOP 07/22/2018 BHAKTI CRUZ MD Ot Z88.8 ALLERGY STATUS TO OTH DRUG/MEDS/BIOL SUB 07/22/2018 BHAKTI CRUZ MD, Ot Z92.21 PERSONAL HISTORY OF ANTINEOPLASTIC CHEMO 07/29/2018 BHAKTI CRUZ MD, Ot E11.65 TYPE 2 DIABETES MELLITUS WITH HYPERGLYCE 07/29/2018 BHAKTI CRUZ MD, Ot E78.00 PURE HYPERCHOLESTEROLEMIA, UNSPECIFIED 07/29/2018 BHAKTI CRUZ MD, Ot F17.200 NICOTINE DEPENDENCE, UNSPECIFIED, UNCOMP 07/29/2018 BHAKTI CRUZ MD, Ot J44.9 CHRONIC OBSTRUCTIVE PULMONARY DISEASE, U 07/29/2018 BHAKTI CRUZ MD, Ot R33.9 RETENTION OF URINE, UNSPECIFIED 07/29/2018 BHAKTI CRUZ MD, Ot Z79.4 DIRECTOR DESIGN (CURRENT) USE OF INSULIN 07/29/2018 BHAKTI CRUZ MD, Ot Z79.82 DIRECTOR DESIGN (CURRENT) USE OF ASPIRIN 07/29/2018 BHAKTI CRUZ MD, Ot Z85.46 PERSONAL HISTORY OF MALIGNANT NEOPLASM O 07/29/2018 BHAKTI CRUZ MD, Ot Z85.828 PERSONAL HISTORY OF OTHER MALIGNANT NEOP 07/29/2018 BHAKTI CRUZ MD, Ot Z88.8 ALLERGY STATUS TO OTH DRUG/MEDS/BIOL SUB 07/29/2018 BHAKTI CRUZ MD, Ot Z92.21 PERSONAL HISTORY OF ANTINEOPLASTIC CHEMO Procedures There is no data. Results Test Result Range Capillary blood glucose measurement by glucometer (mass/volume) - 05/02/18 07:17 Capillary blood glucose measurement by glucometer (mass/volume) 281 mg/dL 70-110 Whole blood basic metabolic panel - 07/16/18 [...] gravity of urine by test strip 1.010 1.016-1.022 Urine protein assay by test strip, semi-quantitative [...] sediment leukocyte count by microscopy (number/high power field) NONE NRG Bacteria detection in urine sediment [...] glucose measurement by glucometer (mass/volume) - 07/16/18 06:42 Capillary blood glucose measurement by glucometer (mass/volume) 362 mg/dL 70-110 Complete urinalysis with reflex to culture - 07/16/18 16:17 Urine color determination YELLOW NRG Urine clarity determination CLEAR NRG Urine pH measurement by test strip 6 5-9 Specific gravity of urine by test strip 1.010 1.016-1.022 Urine protein assay by test strip, semi-quantitative [...] sediment leukocyte count by microscopy (number/high power field) RARE NRG Bacteria detection in urine sediment by light microscopy NEGATIVE NRG Crystals detection in urine sediment by light microscopy NONE NRG Casts detection in urine sediment by light microscopy NONE NRG Mucus detection in urine sediment by light microscopy NEGATIVE NRG Complete urinalysis with reflex to culture NO NRG Complete blood count (CBC) with automated white blood cell (WBC) differential - 07/17/18 17:40 Blood leukocytes automated count (number/volume) 9.7 10*3/uL 4.3-11.0 Blood erythrocytes automated count (number/volume) 4.91 10*6/uL 4.35-5.85 Venous blood hemoglobin measurement (mass/volume) 14.3 g/dL 13.3-17.7 Blood hematocrit (volume fraction) 42 % 40-54 Automated erythrocyte mean corpuscular volume 86 [foz_us] 80-99 Automated erythrocyte mean corpuscular hemoglobin (mass per erythrocyte) 29 pg 25-34 Automated erythrocyte mean corpuscular hemoglobin concentration measurement (mass/volume) 34 g/dL 32-36 Automated erythrocyte distribution width ratio 14.0 % 10.0- 14.5 Automated blood platelet count (count/volume) 269 10*3/uL 130-400 Automated blood platelet mean volume measurement 10.1 [foz_us] 7.4-10.4 Automated blood neutrophils/100 leukocytes 70 % 42-75 Automated blood lymphocytes/100 leukocytes 16 % 12-44 Blood monocytes/100 leukocytes 12 % 0-12 Automated blood eosinophils/100 leukocytes 1 % 0-10 Automated blood basophils/100 leukocytes 0 % 0-10 Blood neutrophils automated count (number/volume) 6.8 10*3 1.8-7.8 Blood lymphocytes automated count (number/volume) 1.6 10*3 1.0-4.0 Blood monocytes automated count (number/volume) 1.2 10*3 0.0- 1.0 Automated eosinophil count 0.1 10*3/uL 0.0-0.3 Automated blood basophil count (count/volume) 0.0 10*3/uL 0.0-0.1 Blood lactic acid measurement (moles/volume) - 07/17/18 17:40 Blood lactic acid measurement (moles/volume) 1.92 mmol/L 0.50- 2.00 PT panel in platelet poor plasma by coagulation assay - 07/17/18 17:40 Prothrombin time (PT) in platelet poor plasma by coagulation assay 13.9 s 12.2-14.7 INR in platelet poor plasma or blood by coagulation assay 1.0 0.8-1.4 Activated partial thromboplastin time (aPTT) in platelet poor plasma bycoagulation assay - 07/17/18 17:40 Activated partial thromboplastin time (aPTT) in platelet poor plasma bycoagulation assay 25 s 24-35 Comprehensive metabolic panel - 07/17/18 17:40 Serum or plasma sodium measurement (moles/volume) 138 mmol/L 135-145 Serum or plasma potassium measurement (moles/volume) 3.5 mmol/L 3.6-5.0 Serum or plasma chloride measurement (moles/volume) 100 mmol/L 98-107 Carbon dioxide 25 mmol/L 21-32 Serum or plasma anion gap determination (moles/volume) 13 mmol/L 5-14 Serum or plasma urea nitrogen measurement (mass/volume) 18 mg/dL 7-18 Serum or plasma creatinine measurement (mass/volume) 1.16 mg/dL 0.60-1.30 Serum or plasma urea nitrogen/creatinine mass ratio 16 NRG Serum or plasma creatinine measurement with calculation of estimated glomerular filtration rate > NRG Serum or plasma glucose measurement (mass/volume) 112 mg/dL 70-105 Serum or plasma calcium measurement (mass/volume) 9.2 mg/dL 8.5-10.1 Serum or plasma total bilirubin measurement (mass/volume) 0.9 mg/dL 0.1-1.0 Serum or plasma alkaline phosphatase measurement (enzymatic activity/volume) 91 U/L 40-136 Serum or plasma aspartate aminotransferase measurement (enzymatic activity/volume) 25 U/L 5-34 Serum or plasma alanine aminotransferase measurement (enzymatic activity/volume) 32 U/L 0-55 Serum or plasma protein measurement (mass/volume) 6.2 g/dL 6.4-8.2 Serum or plasma albumin measurement (mass/volume) 3.9 g/dL 3.2-4.5 CALCIUM CORRECTED 9.3 mg/dL 8.5-10.1 Magnesium - 07/17/18 17:40 Magnesium 1.6 mg/dL 1.8-2.4 Serum or plasma troponin i.cardiac measurement (mass/volume) - 07/17/18 17:40 Serum or plasma troponin i.cardiac measurement (mass/volume) < ng/mL <0.028 Myoglobin, serum - 07/17/18 17:40 Myoglobin, serum 216.3 ng/mL 10.0-92.0 Serum or plasma C reactive protein measurement (mass/volume) - 07/17/18 17:40 Serum or plasma C reactive protein measurement (mass/volume) 3.79 mg/dL 0.00-0.50 Serum or plasma lithium measurement (moles/volume) - 07/17/18 17:40 BNP level 14.5 pg/mL <100.0 Bacterial blood culture - 07/17/18 17:40 Bacterial blood culture NG NRG Bacterial blood culture - 07/17/18 18:06 Bacterial blood culture NG NRG Complete urinalysis with reflex to culture - 07/17/18 18:15 Urine color determination YELLOW NRG Urine clarity determination CLEAR NRG Urine pH measurement by test strip 7 5-9 Specific gravity of urine by test strip 1.005 1.016-1.022 Urine protein assay by test strip, semi-quantitative 3+ NEGATIVE Urine glucose detection by automated test strip NEGATIVE NEGATIVE Erythrocytes detection in urine sediment by light microscopy 4+ NEGATIVE Urine ketones detection by automated test strip NEGATIVE NEGATIVE Urine nitrite detection by test strip NEGATIVE NEGATIVE Urine total bilirubin detection by test strip NEGATIVE NEGATIVE Urine urobilinogen measurement by automated test strip (mass/volume) 1 mg/dL NORMAL Urine leukocyte esterase detection by dipstick 3+ NEGATIVE Automated urine sediment erythrocyte count by microscopy (number/high power field) [HPF] NRG Automated urine sediment leukocyte count by microscopy (number/high power field) [HPF] NRG Bacteria detection in urine sediment by light microscopy TRACE NRG Crystals detection in urine sediment by light microscopy NONE NRG Casts detection in urine sediment by light microscopy NONE NRG Mucus detection in urine sediment by light microscopy NEGATIVE NRG Complete urinalysis with reflex to culture YES NRG Bacterial urine culture - 07/17/18 18:15 Bacterial urine culture NG NRG Serum or plasma creatine kinase measurement (enzymatic activity/volume) - 07/17/18 23:49 Serum or plasma creatine kinase measurement (enzymatic activity/volume) 174 U/L 30-200 Serum or plasma troponin i.cardiac measurement (mass/volume) - 07/17/18 23:49 Serum or plasma troponin i.cardiac measurement (mass/volume) < ng/mL <0.028 Complete blood count (CBC) with automated white blood cell (WBC) differential - 07/18/18 05:52 Blood leukocytes automated count (number/volume) 7.0 10*3/uL 4.3-11.0 Blood erythrocytes automated count (number/volume) 4.89 10*6/uL 4.35-5.85 Venous blood hemoglobin measurement (mass/volume) 14.0 g/dL 13.3-17.7 Blood hematocrit (volume fraction) 43 % 40-54 Automated erythrocyte mean corpuscular volume 88 [foz_us] 80-99 Automated erythrocyte mean corpuscular hemoglobin (mass per erythrocyte) 29 pg 25-34 Automated erythrocyte mean corpuscular hemoglobin concentration measurement (mass/volume) 33 g/dL 32-36 Automated erythrocyte distribution width ratio 14.1 % 10.0- 14.5 Automated blood platelet count (count/volume) 243 10*3/uL 130-400 Automated blood platelet mean volume measurement 10.0 [foz_us] 7.4-10.4 Automated blood neutrophils/100 leukocytes 70 % 42-75 Automated blood lymphocytes/100 leukocytes 18 % 12-44 Blood monocytes/100 leukocytes 11 % 0-12 Automated blood eosinophils/100 leukocytes 1 % 0-10 Automated blood basophils/100 leukocytes 0 % 0-10 Blood neutrophils automated count (number/volume) 4.9 10*3 1.8-7.8 Blood lymphocytes automated count (number/volume) 1.3 10*3 1.0-4.0 Blood monocytes automated count (number/volume) 0.8 10*3 0.0- 1.0 Automated eosinophil count 0.1 10*3/uL 0.0-0.3 Automated blood basophil count (count/volume) 0.0 10*3/uL 0.0-0.1 Comprehensive metabolic panel - 07/18/18 05:52 Serum or plasma sodium measurement (moles/volume) 137 mmol/L 135-145 Serum or plasma potassium measurement (moles/volume) 4.4 mmol/L 3.6-5.0 Serum or plasma chloride measurement (moles/volume) 100 mmol/L 98-107 Carbon dioxide 26 mmol/L 21-32 Serum or plasma anion gap determination (moles/volume) 11 mmol/L 5-14 Serum or plasma urea nitrogen measurement (mass/volume) 18 mg/dL 7-18 Serum or plasma creatinine measurement (mass/volume) 1.22 mg/dL 0.60-1.30 Serum or plasma urea nitrogen/creatinine mass ratio 15 NRG Serum or plasma creatinine measurement with calculation of estimated glomerular filtration rate 58 NRG Serum or plasma glucose measurement (mass/volume) 304 mg/dL 70-105 Serum or plasma calcium measurement (mass/volume) 9.1 mg/dL 8.5-10.1 Serum or plasma total bilirubin measurement (mass/volume) 0.9 mg/dL 0.1-1.0 Serum or plasma alkaline phosphatase measurement (enzymatic activity/volume) 97 U/L 40-136 Serum or plasma aspartate aminotransferase measurement (enzymatic activity/volume) 20 U/L 5-34 Serum or plasma alanine aminotransferase measurement (enzymatic activity/volume) 25 U/L 0-55 Serum or plasma protein measurement (mass/volume) 6.0 g/dL 6.4-8.2 Serum or plasma albumin measurement (mass/volume) 3.6 g/dL 3.2-4.5 CALCIUM CORRECTED 9.4 mg/dL 8.5-10.1 Serum or plasma creatine kinase measurement (enzymatic activity/volume) - 07/18/18 05:52 Serum or plasma creatine kinase measurement (enzymatic activity/volume) 144 U/L 30-200 Serum or plasma troponin i.cardiac measurement (mass/volume) - 07/18/18 05:52 Serum or plasma troponin i.cardiac measurement (mass/volume) < ng/mL <0.028 Lipid 1996 panel - 07/18/18 05:52 Serum or plasma triglyceride measurement (mass/volume) 218 mg/dL <150 Serum or plasma cholesterol measurement (mass/volume) 113 mg/dL < 200 Serum or plasma cholesterol in HDL measurement (mass/volume) 27 mg/dL 40-60 Cholesterol in LDL [mass/volume] in serum or plasma by direct assay 59 mg/dL 1-129 Serum or plasma cholesterol in VLDL measurement (mass/volume) 44 mg/dL 5-40 Capillary blood glucose measurement by glucometer (mass/volume) - 07/18/18 21:16 Capillary blood glucose measurement by glucometer (mass/volume) 395 mg/dL 70-110 Automated blood complete blood count (hemogram) panel - 07/19/18 06:05 Blood leukocytes automated count (number/volume) 8.0 10*3/uL 4.3-11.0 Blood erythrocytes automated count (number/volume) 4.97 10*6/uL 4.35-5.85 Venous blood hemoglobin measurement (mass/volume) 14.5 g/dL 13.3-17.7 Blood hematocrit (volume fraction) 43 % 40-54 Automated erythrocyte mean corpuscular volume 87 [foz_us] 80-99 Automated erythrocyte mean corpuscular hemoglobin (mass per erythrocyte) 29 pg 25-34 Automated erythrocyte mean corpuscular hemoglobin concentration measurement (mass/volume) 34 g/dL 32-36 Automated erythrocyte distribution width ratio 13.6 % 10.0- 14.5 Automated blood platelet count (count/volume) 236 10*3/uL 130-400 Automated blood platelet mean volume measurement 10.0 [foz_us] 7.4-10.4 Whole blood basic metabolic panel - 07/19/18 06:05 Serum or plasma sodium measurement (moles/volume) 136 mmol/L 135-145 Serum or plasma potassium measurement (moles/volume) 3.9 mmol/L 3.6-5.0 Serum or plasma chloride measurement (moles/volume) 99 mmol/L 98-107 Carbon dioxide 24 mmol/L 21-32 Serum or plasma anion gap determination (moles/volume) 13 mmol/L 5-14 Serum or plasma urea nitrogen measurement (mass/volume) 17 mg/dL 7-18 Serum or plasma creatinine measurement (mass/volume) 0.98 mg/dL 0.60-1.30 Serum or plasma urea nitrogen/creatinine mass ratio 17 NRG Serum or plasma creatinine measurement with calculation of estimated glomerular filtration rate > NRG Serum or plasma glucose measurement (mass/volume) 155 mg/dL 70-105 Serum or plasma calcium measurement (mass/volume) 9.4 mg/dL 8.5-10.1 Magnesium - 07/19/18 06:05 Magnesium 2.3 mg/dL 1.8-2.4 Capillary blood glucose measurement by glucometer (mass/volume) - 07/19/18 06:22 Capillary blood glucose measurement by glucometer (mass/volume) 167 mg/dL 70-110 Capillary blood glucose measurement by glucometer (mass/volume) - 07/19/18 11:24 Capillary blood glucose measurement by glucometer (mass/volume) 246 mg/dL 70-110 Methicillin resistant Staphylococcus aureus (MRSA) screening culture - 08/04/18 15:05 Methicillin resistant Staphylococcus aureus (MRSA) screening culture NEG NRG Encounters ACCT No. Visit Date/Time Discharge Status Pt. Type Provider Facility Loc./Unit Complaint [id number] 08/04/2018 14:22:00 08/04/2018 15:15:00 DIS Outpatient YOVANY ARVIZU MD [facility] PREOP PROSTATE CANCER [id number] 07/17/2018 18:37:00 07/19/2018 13:20:00 DIS Inpatient MARKUS MARTINEZ DO [facility] 4TH CHEST PAIN;URINARY RETENTION [id number] 07/16/2018 15:17:00 07/16/2018 18:00:00 DIS Outpatient ERLIN WRIGHT [facility] ER KIDNEY PROBLEMS [id number] 07/16/2018 04:01:00 07/16/2018 07:01:00 DIS Outpatient BHAKTI CRUZ MD [facility] ER PROBLEMS WITH URINATION [id number] 05/02/2018 07:05:00 05/02/2018 08:27:00 DIS Outpatient BEBO CONNER MD [facility] LEFT EYE CATARACT [id number] 04/30/2018 05:39:00 04/30/2018 12:13:00 DIS Outpatient BEBO CONNER MD [facility] PREOP LEFT CATARACT [id number] 08/04/2012 07:58:00 08/04/2012 23:59:59 CLS Outpatient [id number] 08/06/2018 10:15:00 PEN Preadmit YOVANY ARVIZU MD [facility] PROSTATE CANCER
[2018-08-06] MEDS ORDERED: cefTRIAXone FOR IV USE 1,000 MG in WATER (STERILE) FOR INJECTION 10 ML IV ONE (07:30)
[2018-08-06] MEDS ORDERED: CATHETER FLUSH 10 ML SYR IV PRN (07:45)
--- NOTE | 2018-08-06 08:06 | Progress Note-Pre Operative ---
Pre-Operative Progress Note H&P Reviewed The H&P was reviewed, patient examined and no changes noted. Date Seen by Provider: Aug 06, 2018 Time Seen by Provider: 08:05 Date H&P Reviewed: Aug 06, 2018 Time H&P Reviewed: 08:05 Pre-Operative Diagnosis: CA PROSTATE WITH PROSTATISM AND RETENTION YOVANY ARVIZU MD Aug 06, 2018 08:06
--- NOTE | 2018-08-06 08:07 | Progress Note-Post Operative ---
Post-Operative Progess Note Surgeon (s)/Estimate Clerk (s) Surgeon YOVANY ARVIZU MD Estimate Clerk: NONE Pre-Operative Diagnosis CA PROSTATE WITH PROSTATISM AND RETENTION Post-Operative Diagnosis SAME Procedure & Operative Findings Date of Procedure 08/06/18 Procedure Performed/Findings TURP Anesthesia Type GENERAL Estimated Blood Loss Estimated blood loss (mL): LESS THAN 50CC Specimens/Packing Specimens Removed PROSTATE CHIPS Packing: NONE YOVANY ARVIZU MD Aug 06, 2018 08:07
[2018-08-06] MEDS: LACTATED RINGERS 1,000 ML IV PRN ×2 (08:15→10:10)
[2018-08-06] MEDS ORDERED: MILK OF MAGNESIA 400 MG/5 ML 30 ML UDC PO PRN (08:15)
[2018-08-06] MEDS ORDERED: proPOfol 200 MG/20 ML (DIPRIVAN) VIAL IV ONE (09:30)
[2018-08-06] MEDS ORDERED: LIDOCAINE PF 2% 5 ML (XYLOCAINE) VIAL ONE (09:30)
[2018-08-06] MEDS ORDERED: ROCURONIUM 10 MG/ML 5 ML SYRINGE IV ONE ×2 (09:30→10:38)
[2018-08-06] MEDS ORDERED: ONDANSETRON 4 MG/2 ML (SDV) Z0FRAN ONE (09:30)
[2018-08-06] MEDS ORDERED: MIDAZOLAM 2 MG/2 ML (VERSED) VIAL ONE (09:31)
[2018-08-06] MEDS ORDERED: fentaNYL INJECTION 100 MCG/2 ML AMP ONE (09:31)
[2018-08-06] MEDS ORDERED: SEVOFLURANE (ULTANE) 15 ML INHAL SOLN ONE (10:14)
[2018-08-06] MEDS ORDERED: HYDROmorphone 2 MG/ML VIAL (DILAUDID) ONE (11:13)
[2018-08-06] MEDS ORDERED: HYDROmorphone 2 MG/ML VIAL (DILAUDID) IV ONE (11:30)
[2018-08-06] MEDS ORDERED: ONDANSETRON 4 MG/2 ML (SDV) Z0FRAN IVP PRN (11:30)
[2018-08-06] MEDS: LACTATED RINGERS 1,000 ML IV SCH ×4 (12:45→21:41)
[2018-08-06] MEDS: BELLADONNA ALK/OPIUM (B & O) 30 MG SUPP PR PRN ×3 (12:57→21:57)
[2018-08-06] MEDS: DOCUSATE SODIUM 100 MG (COLACE) CAP PO SCH ×2 (15:44→17:32)
--- NOTE | 2018-08-06 15:44 | OPERATIVE REPORT ---
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 OPERATION PERFORMED: Transurethral resection of the prostate. SURGEON: Yovany Arvizu MD. ANESTHESIA: General. COMPLICATIONS: None. DESCRIPTION OF PROCEDURE: Under satisfactory general anesthesia, the patient in lithotomy position, genitalia were prepped and draped in the usual sterile fashion. Urethra was dilated with Sangeeta sounds to accommodate a 27-Setswana Leetchi resectoscope. There was a median bar that was leveled and then the lateral lobes were resected from 1 to 6 o'clock position on both sides. Bleeders were cauterized as the resection was proceeding. Capsule was visualized in many points and resection was complete. Hemostasis was very satisfactory. Prostatic chips were then evacuated and cystoscopy confirmed intact orifices and or all of which sphincter was clear with good reflex. Estimated blood loss was less than 50 mL, none of which was replaced. The patient tolerated the procedure and anesthesia well and was sent to recovery room in stable condition. Job ID: [id number] DocumentID: [id number] Dictated Date: 08/06/2018 11:11:21 Fashion Intern Date: 08/06/2018 15:44:06 Dictated By: YOVANY ARVIZU MD
[2018-08-06] MEDS: ONDANSETRON 4 MG/2 ML (SDV) Z0FRAN IVP PRN (17:32)
[2018-08-06] MEDS: ALPRAZolam 0.5 MG (XANAX) TAB PO PRN (21:40)
[2018-08-06] MEDS: inSUlin ASPART (NovoLOG) 1 UNIT/0.01 ML (CHARGE PER UNIT) SC SCH (21:41)
--- NOTE | 2018-08-06 22:00 | NUR ---
2144-PT COMPLAINING OF PAIN IN HIS LOWER ABD. IRRIGATED PT AT THIS TIME WITH NO CLOTS PRESENT. 2156-ATTEMPTED TO GIVE BELLADONNA SUPPOSITORY AT THIS TIME BUT THIS RN COULD ONLY GET ONE SUPPOSITORY INTO RECTUM. SUPPOSITORY NOT IN RECTUM WELL, IT WOULD NOT ADVANCE. PT STATES ITS BEEN A WHILE SINCE HIS LAST BM. 2199-GAVE MILK OF MAGNESIA AT THIS TIME TO HELP WITH CONSTIPATION. WILL CONTINUE TO MONITOR PT.
[2018-08-07] MEDS: HYDROcodone/APAP 10 MG/325 MG (LORTAB) TAB PO PRN ×2 (01:14→06:47)
[2018-08-07] MEDS: LACTATED RINGERS 1,000 ML IV SCH ×2 (01:14→08:25)
--- NOTE | 2018-08-07 01:20 | NUR ---
PT UP TO BEDSIDE COMMODE AT THIS TIME. BM UNSUCCESSFUL AND PREVIOUS SUPPOSITORY THAT WAS GIVEN CAME OUT INTO COMMODE WHOLE. PT COMPLAINING OF SEVERE PAIN-2 HYDROCODONE GIVEN AT THIS TIME.
[2018-08-07] MEDS: inSUlin ASPART (NovoLOG) 1 UNIT/0.01 ML (CHARGE PER UNIT) SC SCH ×4 (06:47→20:27)
[2018-08-07] MEDS: ONDANSETRON 4 MG/2 ML (SDV) Z0FRAN IVP PRN (07:05)
[2018-08-07 08:00] VITALS: BP 156/84
[2018-08-07] MEDS ORDERED: LEVOFLOXACIN 500 MG/100 ML IV 100 ML IV ONE (08:15)
[2018-08-07] MEDS ORDERED: FLEET ENEMA ADULT 1 EA BTL PR NR (08:45)
[2018-08-07] MEDS: lisINopril 5 MG (PRINIVIL) TABLET PO SCH (09:44)
[2018-08-07] MEDS: DOCUSATE SODIUM 100 MG (COLACE) CAP PO SCH ×2 (09:44→20:26)
--- NOTE | 2018-08-07 11:46 | Progress Note-Urology ---
Progress Note-Urology Progress Notes/Assess & Plan Progress/Assessment & Plan NAUSEATED. DID NOT VOID YET. HAD GOOD BM. NO VOMITING. CHECK KUB AND UPRIGHT AND ABDOMINAL SONOGRAM. ALSO START ON PROTONIX Final Diagnosis URINE RETENTION YOVANY ARVIZU MD Aug 07, 2018 11:46
[2018-08-07 12:00] VITALS: BP 110/69
[2018-08-07] MEDS ORDERED: ACETAMINOPHEN 500 MG TAB (TYLENOL) PO PRN (12:15)
--- NOTE | 2018-08-07 14:28 | Anesthesia-General Post-Op ---
General Patient Condition Mental Status/LOC: Same as Preop Cardiovascular: Satisfactory Nausea/Vomiting: Absent Respiratory: Satisfactory Pain: Controlled Complications: Absent Post Op Complications Complications None Follow Up Care/Instructions Patient Instructions None needed. Anesthesia/Patient Condition Patient Condition Patient is doing well, no complaints, stable vital signs, no apparent adverse anesthesia problems. No complications reported per nursing. ALANNA CONRAD CRNA Aug 07, 2018 14:28
--- NOTE | 2018-08-07 15:02 | Consultation-Hospitalist ---
HPI History of Present Illness: HPI/Chief Complaint The patient is a 73-year-old white male who has just undergone TURP by Dr. Damon. The hospitalists are consulted relative to management of his diabetes and other medications. The patient relates that he has had epigastric pain for some time. In the beginning this was amenable to Protonix but over the last several weeks he has had rather continued pain. There is some nausea that is associated with this. He has become fearful of eating because of this. He is also a type II diabetic insulin requiring. Source: patient, family Date Seen 08/07/18 Attending Physician Nhan Damon MD PCP No,Local Physician Referring Physician Date of Admission Home Medications & Allergies Home Medications Reviewed patient Home Medication Reconciliation performed by pharmacy medication reconciliations arch support technician and/or nursing. Patients Allergies have been reviewed. Allergies Allergies Coded Allergies meperidine (Verified Allergy, Severe, Mental Confusion, 07/16/18) Past Mycyjro-Xxmpam-Mftgfi Hx Past Med/Social Hx: Reviewed Nursing Past Med/Soc Hx Patient Social History Alcohol Use: Denies Use Recreational Drug Use: No Smoking Status: Former Smoker Former Smoker, Quit: Aug 05, 2015 Type Used: Smokeless Tobacco 2nd Hand Smoke Exposure: No Recent Foreign Travel: No Contact w/other who traveled: No Recent Hopitalizations: No Recent Infectious Disease Expo: No Immunizations Up To Date Tetanus Booster (TDap): Unknown Pediatric: No Date of Pneumonia Vaccine: Dec 02, 2017 Seasonal Allergies Seasonal Allergies: No Past Medical History Surgeries: Coronary Stent Respiratory: COPD, Sleep Apnea Currently Using CPAP: No Currently Using BIPAP: No Cardiac: Coronary Artery Disease, High Cholesterol, Hypertension Neurological: Brain Tumor, Headaches /Migraines, Vertigo Reproductive: No Genitourinary: Benign Prostatic Hyperpl, Prostate Problems Gastrointestinal: Gastroesophageal Reflux Musculoskeletal: Arthritis, Fractures Endocrine: Diabetes, Insulin dep Cancer: Prostate, Skin Did You Recieve Any Treatments: Yes What Type of Treatment Did You: Radiation, Surgical Intervention History of Blood Disorders: No Adverse Reaction to Blood Topete: No Family History Patient reports no known family medical history. No Pertinent Family Hx Review of Systems Constitutional: see HPI EENTM: no symptoms reported Respiratory: dyspnea on exertion Cardiovascular: no symptoms reported Gastrointestinal: abdominal pain (epigastric) Genitourinary: see HPI Musculoskeletal: no symptoms reported Skin: no symptoms reported Psychiatric/Neurological: No Symptoms Reported Physical Exam Physical Exam Vital Signs Vital Signs - First Documented 08/06/18 08/06/18 08:23 11:14 Temp 97.3 Pulse 78 Resp 18 B/P (MAP) 132/96 (108) Pulse Ox 100 O2 Delivery Room Air O2 Flow Rate 8 Capillary Refill : Height, Weight, BMI Height: 6'0.00" Weight: 259lbs. 0.0oz. 117.552283py; 35.1 BMI Method:Stated General Appearance: Mild Distress Eyes: Bilateral Eye Normal Inspection HEENT: Normal ENT Inspection Neck: Normal Inspection Respiratory: Chest Non Tender, Lungs Clear, No Accessory Muscle Use, No Respiratory Distress, Decreased Breath Sounds (breath sounds are distant) Cardiovascular: Regular Rate, Rhythm, No Edema, No Gallop, No JVD, No Murmur, Normal Peripheral Pulses Gastrointestinal: Other Results Results/Procedures Labs Patient resulted labs reviewed. Assessment/Plan Assessment and Plan Assess & Plan/Chief Complaint Immediately post TURP. 2.obesity. 3.dyspepsia consider cholecystitis. 4.diabetes/insulin-requiring Clinical Quality Measures DVT/VTE Risk/Contraindication: Risk Factor Score Per Nursin RFS Level Per Nursing on Admit: 4+=Very High EMBER WILLAMS MD Aug 07, 2018 15:02
--- NOTE | 2018-08-07 16:14 | Diagnostic Imaging Report ---
PROCEDURE: CT abdomen and pelvis without contrast. TECHNIQUE: Multiple contiguous axial images were obtained through the abdomen and pelvis without the use of intravenous contrast. Auto Exposure Controls were utilized during the CT exam to meet ALARA standards for radiation dose reduction. INDICATION: Abdominal pain. COMPARISON: 04/25/2011. FINDINGS: Included portions of the lung bases are clear. CT abdomen: Moderate amount of air and stool is noted scattered throughout the colon. Normal appendix is identified. Small bowel loops are nondistended. Bilateral hypodense renal cysts are noted. Otherwise, the kidneys, adrenal glands, spleen, and pancreas have an unremarkable noncontrast CT appearance. Liver is diffusely hypodense consistent with hepatic steatosis. Note is also made of several small gallstones. There is no loculated fluid collection, free fluid, or free air within the abdomen. No abnormal mesenteric or retroperitoneal adenopathy is seen. There is diffuse calcified aortic and arterial atherosclerosis. Osseous structures show no acute abnormalities. CT pelvis: Small amount of gas is noted within the non-gravity dependent portion of the urinary bladder. Note is also made of mild stranding of the pericystic fat anteriorly (image 76, series 2). No calculi are seen within the urinary bladder. Urinary bladder is unopacified. There is no loculated fluid collection, free fluid, or free air within the pelvis. No abnormal lymph nodes are identified. Osseous structures show no acute abnormalities. Fiducial prostatic beads are present. IMPRESSION: 1. Small amount of gas within the lumen of the urinary bladder with mild stranding of the pericystic fat. Findings do raise concern for potential gas-forming cystitis; however, correlation with recent instrumentation is recommended. 2. Hepatic steatosis. 3. Cholelithiasis. 4. Moderate colonic air and stool. Please correlate for constipation. Dictated by: Dictated on workstation # [id number]
--- NOTE | 2018-08-07 16:21 | Diagnostic Imaging Report ---
INDICATION: Nausea EXAM: KUB FINDINGS: There is a moderate of stool in the transverse colon. The lung bases are clear. Bowel gas pattern is normal. There are degenerative changes with scoliosis of the spine. There are no pathologic masses or calcifications seen. IMPRESSION: No acute abnormalities in the abdomen. Dictated by: Dictated on workstation # [id number]
[2018-08-07 16:28] VITALS: BP 126/76
--- NOTE | 2018-08-07 18:10 | NUR ---
NOTIFIED DR. ARVIZU AT THIS TIME THAT ABD US HAS NOT BEEN COMPLETED YET AND THAT PT STILL HAS NOT VOIDED ON HIS OWN SINCE LUA CATH REMOVAL AROUND [address] ARVIZU STATES TO RESTART IVF WITH NS AT 100CC/HR AND WAIT FOR ABD US AND CALL HIM WITH RESULTS AND THAT WE WILL GO FROM THERE. WILL PASS ON TO DEPARTMENT HEAD [employer] RN TO CALL DR. ARVIZU WITH RESULT OF ABD US.
[2018-08-07] MEDS: ONDANSETRON 4 MG (ZOFRAN) ORAL DISSOLVE TAB PO PRN (18:51)
[2018-08-07] MEDS: NS IV 1000 ML 1,000 ML IV SCH (18:59)
--- NOTE | 2018-08-07 19:55 | Diagnostic Imaging Report ---
PROCEDURE: US abdomen complete. TECHNIQUE: Multiple real-time grayscale images were obtained over the abdomen in various projections. INDICATION: Abdominal pain with nausea. Postop. FINDINGS: There is hepatomegaly with hepatic steatosis. Long axis of the liver is approximately 19-20 cm. Bile ducts are not dilated. Common duct is 3 mm. There are several small mobile gallstones. The gallbladder wall measures 3 mm. The gallbladder is not distended. Pancreas is not visualized due to considerable midline bowel gas. Spleen is mildly enlarged measuring 14 cm in long axis. Portal vein is patent with Doppler sampling with normal flow. Right kidney measures 11.5 x 5 cm. There is a 1.5 cm simple-appearing cortical cyst. Left kidney measures 10.5 x 6 cm showing multiple cortical cysts with largest measuring 2.8 cm. There is no ascites. IMPRESSION: 1. Cholelithiasis with multiple small mobile gallstones. No evidence of gallbladder wall thickening or bile duct dilatation. 2. There are bilateral renal cysts with benign appearance. Dictated by: Dictated on workstation # [id number]
[2018-08-07 20:09] VITALS: BP 137/71
--- NOTE | 2018-08-07 20:12 | NUR ---
1500- DR. ARVIZU NOTIFIED AT THIS TIME THAT PATIENT STILL NAUSEATED AND STILL C/O PAIN IN LOWER ABD AND ALSO THAT [facility] STATED THAT SINCE PT ATE AT NOON PATIENT CANT HAVE US UNTIL AROUND 1830. STATES TO DO A CT ABD/PELVIS WITH NO CONTRAST NOW.
--- NOTE | 2018-08-07 20:21 | NUR ---
NOTE EVENT OCCURRED AT 1500 Addendum: 08/07/18 at 2022 by MARLENY US RN *DISREGARD NOTE.*
[2018-08-07] MEDS: PROMETHAZINE INJ 25 MG/ML (PHENERGAN) AMP IVP PRN (20:26)
[2018-08-07] MEDS: SIMvastatin 20 MG (ZOCOR) TAB PO SCH (20:27)
[2018-08-08] VITALS (7 sets, daily range): BP systolic 112–176; BP diastolic 61–80
[2018-08-08] MEDS: ONDANSETRON 4 MG (ZOFRAN) ORAL DISSOLVE TAB PO PRN (01:32)
[2018-08-08] MEDS: NS IV 1000 ML 1,000 ML IV SCH ×2 (04:28→15:00)
[2018-08-08] MEDS: inSUlin ASPART (NovoLOG) 1 UNIT/0.01 ML (CHARGE PER UNIT) SC SCH ×4 (04:31→21:37)
[2018-08-08] MEDS: PROMETHAZINE INJ 25 MG/ML (PHENERGAN) AMP IVP PRN (05:09)
[2018-08-08] MEDS: ALPRAZolam 0.5 MG (XANAX) TAB PO PRN (05:11)
--- NOTE | 2018-08-08 06:49 | NUR ---
PT HAS HAD PERSISTENT N/V THROUGH THE NIGHT ALONG WITH ABD PAIN. PT HAS URINATED A TOTAL OF 1135ML BUT HAS HAD SMALL AMOUNTS OUT EACH TIME. PT UP MOST OF THE NIGHT URINATING. GAVE PHENERGAN FOR NAUSEA AND IT MAKES PT HALLUCINATE. BED ALARM IN PLACE.
--- NOTE | 2018-08-08 08:50 | Progress Note-Urology ---
Progress Note-Urology Progress Notes/Assess & Plan Progress/Assessment & Plan VOIDING WELL. FEELS EMPTYING WELL. URINE CLEAR AND LIBORIO. STILL SOME NAUSEA. DID NOT TOLERATE PHENERGAN WE WILL SWITCH BACK TO ZOFRAN. NOW COMPLAINS OF EPIGASTRIC PAIN, NOT CHEST PAIN. NO SOB. NO DIAPHORESIS.HAS TENDERNESS OVER EPIGASTRIUM AND RUQ WITH ? POSITIVE VALDES SIGN. PLAN MAALOX, ASK DR WILLAMS TO SEE THIS AM AND CONSULT DR SALMERON . WE WILL ALSO CHECK CBC, CMP, LIVER PROFILE AND LIPASE, AMYLASE Final Diagnosis PROSTATISM AND RETENTION YOVANY ARVIZU MD Aug 08, 2018 08:50
[2018-08-08] MEDS ORDERED: PANTOPRAZOLE 40 MG (PROTONIX) TAB PO SCH ×2 (09:00)
[2018-08-08] MEDS ORDERED: ANTACID SUSP 30 ML UDC (MYLANTA) PO PRN (09:00)
[2018-08-08] MEDS: ONDANSETRON 4 MG/2 ML (SDV) Z0FRAN IVP PRN ×2 (10:17→16:14)
[2018-08-08 10:22] LABS: BASOPHILS % (AUTO) 0 % (0-10); EOSINOPHILS # (AUTO) 0.1 10^3/uL (0.0-0.3); EOSINOPHILS % (AUTO) 1 % (0-10); HEMATOCRIT 40 % (40-54); HEMOGLOBIN 12.8 G/DL (13.3-17.7); LYMPHOCYTES # (AUTO) 1.1 X 10^3 (1.0-4.0); LYMPHOCYTES % (AUTO) 12 % (12-44); MEAN CORPUSCULAR HEMOGLOBIN 29 PG (25-34); MEAN CORPUSCULAR HGB CONC 32 G/DL (32-36); MEAN CORPUSCULAR VOLUME 89 FL (80-99); MEAN PLATELET VOLUME 9.7 FL (7.4-10.4); MONOCYTES # (AUTO) 0.8 X 10^3 (0.0-1.0); MONOCYTES % (AUTO) 9 % (0-12); NEUTROPHILS # (AUTO) 7.4 X 10^3 (1.8-7.8); NEUTROPHILS % (AUTO) 79 % (42-75); PLATELET COUNT 322 10^3/uL (130-400); RED CELL DISTRIBUTION WIDTH 13.7 % (10.0-14.5); WHITE BLOOD COUNT 9.4 10^3/uL (4.3-11.0)
[2018-08-08 10:52] LABS: ALANINE AMINOTRANSFERASE 21 U/L (0-55); ALBUMIN 3.7 GM/DL (3.2-4.5); ALKALINE PHOSPHATASE 97 U/L (40-136); AMYLASE 25 U/L (25-125); BILIRUBIN,DIRECT 0.3 MG/DL (0.0-0.3); BILIRUBIN,INDIRECT 0.4 MG/DL; BILIRUBIN,TOTAL 0.7 MG/DL (0.1-1.0); BUN/CREATININE RATIO 16; CALCIUM 9.1 MG/DL (8.5-10.1); CARBON DIOXIDE 28 MMOL/L (21-32); CHLORIDE 99 MMOL/L (98-107); CREATININE SERUM 1.13 MG/DL (0.60-1.30); GFR ESTIMATED > 60; GLUCOSE 282 MG/DL (70-105); LIPASE 22 U/L (8-78); POTASSIUM 4.1 MMOL/L (3.6-5.0); SODIUM 136 MMOL/L (135-145); TOTAL PROTEIN 6.2 GM/DL (6.4-8.2)
--- NOTE | 2018-08-08 10:59 | Progress Note-Hospitalist ---
Progress Note Progress Notes/Assess & Plan Date Seen 08/08/18 Time Seen by Provider: 10:56 Assessment & Plan The patient continues to complain of right upper quadrant abdominal pain, epigastric pain, and nausea. Gallbladder sonogram yesterday showed many small stones without obvious evidence of wall thickening or pericystic stranding. Physical exam: He is alert and oriented. Lungs show distant breath sounds but are clear. CV is regular. Abdomen is not so tympanitic as it was yesterday however he is acutely tender to deep palpation over the gallbladder. Impression: Status post TURP. 2.acute on chronic cholecystitis. Plan: Consult general surgery. EMBER WILLAMS MD Aug 08, 2018 10:59
[2018-08-08] MEDS: DOCUSATE SODIUM 100 MG (COLACE) CAP PO SCH ×2 (11:09→20:07)
[2018-08-08] MEDS: KCL 10 MEQ TAB (MICRO K) PO SCH (11:10)
[2018-08-08] MEDS: lisINopril 5 MG (PRINIVIL) TABLET PO SCH (11:10)
[2018-08-08] MEDS ORDERED: MAGNESIUM CITRATE 300 ML BTL PO ONE (11:15)
[2018-08-08] MEDS: PANTOPRAZOLE 40 MG (PROTONIX) VIAL IV SCH (11:32)
--- NOTE | 2018-08-08 12:45 | NUR ---
Pt is Voodoo and declines sacraments.
--- OUTSIDE RECORDS SUMMARY | 2018-08-08 13:34 | XMS REPORT | Continuity of Care Document ---
Author Organization Unknown Address Unknown Allergies Active Description Code Type Severity Reaction Onset Reported/Identified Relationship to Patient Clinical Status Yes No Known Drug Allergies [id number] Drug Allergy Unknown N/A 09/26/2009 Yes meperidine [id number] Drug Allergy Severe Mental Confusio 07/16/2018 Medications [...] MD, Ot I25.10 ATHSCL HEART DISEASE OF [place] CORONARY 05/02/2018 BEBO CONNER MD, Ot Z79.4 HOST/HOSTESS HEAD (CURRENT) USE OF INSULIN 05/02/2018 BEBO CONNER MD Ot Z79.82 HOST/HOSTESS HEAD (CURRENT) USE OF ASPIRIN 05/02/2018 BEBO CONNER MD, Ot Z79.899 OTHER HALF-WAY (CURRENT) DRUG THERAPY 05/02/2018 BEBO CONNER MD, Ot Z87.891 PERSONAL HISTORY OF NICOTINE DEPENDENCE 05/02/2018 BEBO CONNER MD, Ot Z95.5 PRESENCE OF CORONARY ANGIOPLASTY IMPLANT 05/06/2018 BEBO CONNER MD, Ot 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 05/06/2018 BBEO CONNER MD, Ot 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 05/06/2018 BEBO CONNER MD, Ot H57.03 MIOSIS 05/06/2018 BEBO CONNER MD, Ot I10 ESSENTIAL (PRIMARY) HYPERTENSION 05/06/2018 BEBO CONNER MD, Ot I25.10 ATHSCL HEART DISEASE OF [place] CORONARY 05/06/2018 BEBO CONNER MD Ot Z79.4 HALF-WAY (CURRENT) USE OF INSULIN 05/06/2018 BEBO CONNER MD, Ot Z79.82 HALF-WAY (CURRENT) USE OF ASPIRIN 05/06/2018 BEBO CONNER MD, Ot Z79.899 OTHER HOST/HOSTESS HEAD (CURRENT) DRUG THERAPY 05/06/2018 BEBO CONNER MD, Ot Z87.891 PERSONAL HISTORY OF NICOTINE DEPENDENCE 05/06/2018 BEBO CONNER MD Ot Z95.5 PRESENCE OF CORONARY ANGIOPLASTY IMPLANT 07/16/2018 BHAKTI CRUZ MD Ot E11.65 TYPE 2 DIABETES MELLITUS WITH HYPERGLYCE 07/16/2018 BHAKTI CRUZ MD Ot E78.00 PURE HYPERCHOLESTEROLEMIA, UNSPECIFIED 07/16/2018 BHAKTI CRUZ MD Ot F17.200 NICOTINE DEPENDENCE, UNSPECIFIED, UNCOMP 07/16/2018 BHAKTI CRUZ MD Ot J44.9 CHRONIC OBSTRUCTIVE PULMONARY DISEASE, U 07/16/2018 BHAKTI CRUZ MD Ot R33.9 RETENTION OF URINE, UNSPECIFIED 07/16/2018 BHAKTI CRUZ MD Ot Z79.4 HALF-WAY (CURRENT) USE OF INSULIN 07/16/2018 BHAKTI CRUZ MD Ot Z79.82 HALF-WAY (CURRENT) USE OF ASPIRIN 07/16/2018 BHAKTI CRUZ MD Ot Z85.46 PERSONAL HISTORY OF MALIGNANT NEOPLASM O 07/16/2018 BHAKTI CRUZ MD Ot Z85.828 PERSONAL HISTORY OF OTHER MALIGNANT NEOP 07/16/2018 BHAKTI CRUZ MD Ot Z88.8 ALLERGY STATUS TO OTH DRUG/MEDS/BIOL SUB 07/16/2018 BHAKTI CRUZ MD Ot Z92.21 PERSONAL HISTORY OF ANTINEOPLASTIC CHEMO 07/18/2018 ERLIN WRIGHT Ot E11.9 TYPE 2 DIABETES MELLITUS WITHOUT COMPLIC 07/18/2018 ERLIN WRIGHT Ot E78.00 PURE HYPERCHOLESTEROLEMIA, UNSPECIFIED 07/18/2018 ERLIN WRIGHT Ot F17.200 NICOTINE DEPENDENCE, UNSPECIFIED, UNCOMP 07/18/2018 ERLIN WRIGHT Ot J44.9 CHRONIC OBSTRUCTIVE PULMONARY DISEASE, U 07/18/2018 ERLIN WRIGHT Ot R30.0 DYSURIA 07/18/2018 ERLIN WRIGHT Ot R33.9 RETENTION OF URINE, UNSPECIFIED 07/18/2018 ERLIN WRIGHT Ot Z79.4 HALF-WAY (CURRENT) USE OF INSULIN 07/18/2018 ERLIN WRIGHT Ot Z79.82 HALF-WAY (CURRENT) USE OF ASPIRIN 07/18/2018 ERLIN WRIGHT Ot Z85.46 PERSONAL HISTORY OF MALIGNANT NEOPLASM O 07/18/2018 ERLIN WRIGHT Ot Z85.828 PERSONAL HISTORY OF OTHER MALIGNANT NEOP 07/18/2018 ERLIN WRIGHT Ot Z88.8 ALLERGY STATUS TO OTH DRUG/MEDS/BIOL SUB 07/18/2018 ERLIN WRIGHT Ot Z92.21 PERSONAL HISTORY OF ANTINEOPLASTIC CHEMO 07/19/2018 DOROTEO MARTINEZ DOI Ot 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 [place] 07/19/2018 MARKUS MARTINEZ DO Ot E11.8 TYPE 2 DIABETES MELLITUS WITH UNSPECIFIE 07/19/2018 JUAN CONTRERAS MARKUS Ot E66.9 OBESITY, UNSPECIFIED 07/19/2018 JUAN CONTRERAS MARKUS Ot 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 07/19/2018 DOROTEO MARTINEZ DOI Ot I25.10 ATHSCL HEART DISEASE OF [place] CORONARY 07/19/2018 JUAN CONTRERAS MARKUS Ot K21.9 GASTRO-ESOPHAGEAL REFLUX DISEASE WITHOUT 07/19/2018 JUAN CONTRERAS MARKUS Ot N39.0 URINARY TRACT INFECTION, SITE NOT SPECIF 07/19/2018 JUAN CONTRERAS MARKUS Ot R07.9 CHEST PAIN, UNSPECIFIED 07/19/2018 JUAN CONTRERAS MARKUS Ot R33.9 RETENTION OF URINE, UNSPECIFIED 07/19/2018 JUAN CONTRERAS MARKUS Ot Z68.30 BODY MASS INDEX (BMI) 30.0-30.9, ADULT 07/19/2018 DOROTEO MARTINEZ DOI Ot Z79.4 HOST/HOSTESS HEAD (CURRENT) USE OF INSULIN 07/19/2018 MARTINEZ DO, MARKUS Ot Z79.82 HOST/HOSTESS HEAD (CURRENT) USE OF ASPIRIN 07/19/2018 MARTINEZ DO, MARKUS Ot Z79.899 OTHER HALF-WAY (CURRENT) DRUG THERAPY 07/19/2018 MARTINEZ DO, MARKUS Ot Z85.46 PERSONAL HISTORY OF MALIGNANT NEOPLASM O 07/19/2018 MARTINEZ DO, MARKUS Ot Z85.819 PRSNL HX OF MALIG NEOPLM OF [facility] SITE LI 07/19/2018 MARTINEZ DO MARKUS Ot Z87.891 PERSONAL HISTORY OF NICOTINE DEPENDENCE 07/19/2018 MARTINEZ DO MARKUS Ot Z95.5 PRESENCE OF CORONARY ANGIOPLASTY IMPLANT 07/19/2018 JUAN DO MARKUS Ot 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 [place] 07/19/2018 MARTINEZ DO MARKUS Ot E11.8 TYPE 2 DIABETES MELLITUS WITH UNSPECIFIE 07/19/2018 MARTINEZ DO, MARKUS Ot E66.9 OBESITY, UNSPECIFIED 07/19/2018 JUAN DO, MARKUS Ot 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 07/19/2018 MARTINEZ DO, MARKUS Ot I25.10 ATHSCL HEART DISEASE OF [place] CORONARY 07/19/2018 MARTINEZ DO, MARKUS Ot K21.9 GASTRO-ESOPHAGEAL REFLUX DISEASE WITHOUT 07/19/2018 MARTINEZ DO, MARKUS Ot N39.0 URINARY TRACT INFECTION, SITE NOT SPECIF 07/19/2018 JUAN DO MARKUS Ot R07.9 CHEST PAIN, UNSPECIFIED 07/19/2018 MARTINEZ DO MARKUS Ot R33.9 RETENTION OF URINE, UNSPECIFIED 07/19/2018 MARTINEZ DO MARKUS Ot Z68.30 BODY MASS INDEX (BMI) 30.0-30.9, ADULT 07/19/2018 MARTINEZ DO, MARKUS Ot Z79.4 HALF-WAY (CURRENT) USE OF INSULIN 07/19/2018 JUAN DO MARKUS Ot Z79.82 HOST/HOSTESS HEAD (CURRENT) USE OF ASPIRIN 07/19/2018 JUAN DO MARKUS Ot Z79.899 OTHER HALF-WAY (CURRENT) DRUG THERAPY 07/19/2018 MARTINEZ DO MARKUS Ot Z85.46 PERSONAL HISTORY OF MALIGNANT NEOPLASM O 07/19/2018 JUAN DO MARKUS Ot Z85.819 PRSNL HX OF MALIG NEOPLM OF [facility] SITE LI 07/19/2018 MARKUS MARTINEZ DO Ot Z87.891 PERSONAL HISTORY OF NICOTINE DEPENDENCE 07/19/2018 MARKUS MARTINEZ DO Ot Z95.5 PRESENCE OF CORONARY ANGIOPLASTY IMPLANT 07/22/2018 BHAKTI CRUZ MD, Ot E11.65 TYPE 2 DIABETES MELLITUS WITH HYPERGLYCE 07/22/2018 BHAKTI CRUZ MD Ot E78.00 PURE HYPERCHOLESTEROLEMIA, UNSPECIFIED 07/22/2018 BHAKTI CRUZ MD, Ot J44.9 CHRONIC OBSTRUCTIVE PULMONARY DISEASE, U 07/22/2018 BHAKTI CRUZ MD Ot R33.9 RETENTION OF URINE, UNSPECIFIED 07/22/2018 BHAKTI CRUZ MD Ot Z79.4 HOST/HOSTESS HEAD (CURRENT) USE OF INSULIN 07/22/2018 BHAKTI CRUZ MD Ot Z79.82 HOST/HOSTESS HEAD (CURRENT) USE OF ASPIRIN 07/22/2018 BHAKTI CRUZ MD Ot Z85.46 PERSONAL HISTORY OF MALIGNANT NEOPLASM O 07/22/2018 BHAKTI CRUZ MD Ot Z85.828 PERSONAL HISTORY OF OTHER MALIGNANT NEOP 07/22/2018 BHAKTI CRUZ MD, Ot Z88.8 ALLERGY STATUS TO OTH DRUG/MEDS/BIOL SUB 07/22/2018 BHAKTI CRUZ MD, Ot Z92.21 PERSONAL HISTORY OF ANTINEOPLASTIC CHEMO 07/29/2018 BHAKTI CRUZ MD, Ot E11.65 TYPE 2 DIABETES MELLITUS WITH HYPERGLYCE 07/29/2018 BHAKTI CRUZ MD Ot E78.00 PURE HYPERCHOLESTEROLEMIA, UNSPECIFIED 07/29/2018 BHAKTI CRUZ MD Ot F17.200 NICOTINE DEPENDENCE, UNSPECIFIED, UNCOMP 07/29/2018 BHAKTI CRUZ MD, Ot J44.9 CHRONIC OBSTRUCTIVE PULMONARY DISEASE, U 07/29/2018 BHAKTI CRUZ MD Ot R33.9 RETENTION OF URINE, UNSPECIFIED 07/29/2018 BHAKTI CRUZ MD Ot Z79.4 HALF-WAY (CURRENT) USE OF INSULIN 07/29/2018 BHAKTI CRUZ MD Ot Z79.82 HOST/HOSTESS HEAD (CURRENT) USE OF ASPIRIN 07/29/2018 BHAKTI CRUZ MD, Ot Z85.46 PERSONAL HISTORY OF MALIGNANT NEOPLASM O 07/29/2018 BHAKTI CRUZ MD, Ot Z85.828 PERSONAL HISTORY OF OTHER MALIGNANT NEOP 07/29/2018 BHAKTI CRUZ MD, Ot Z88.8 ALLERGY STATUS TO [facility] DRUG/MEDS/BIOL SUB 07/29/2018 BHAKTI CRUZ MD, Ot [...] resistant Staphylococcus aureus (MRSA) screening culture NEG NR Capillary blood glucose measurement by glucometer (mass/volume) - 08/06/18 07:34 Capillary blood glucose measurement by glucometer (mass/volume) 209 mg/dL 70-110 Blood type T Indirect antibody screen panel - 08/06/18 07:40 ABO+Rh group BP [facility] Transfusion band number [id number] [facility] Blood group antibody screen NEGATIVE NR Capillary blood glucose measurement by glucometer (mass/volume) - 08/06/18 17:10 Capillary blood glucose measurement by glucometer (mass/volume) 200 mg/dL 70-110 Capillary blood glucose measurement by glucometer (mass/volume) - 08/06/18 20:55 Capillary blood glucose measurement by glucometer (mass/volume) 245 mg/dL 70-110 Capillary blood glucose measurement by glucometer (mass/volume) - 08/07/18 05:02 Capillary blood glucose measurement by glucometer (mass/volume) 239 mg/dL 70-110 Capillary blood glucose measurement by glucometer (mass/volume) - 08/07/18 11:04 Capillary blood glucose measurement by glucometer (mass/volume) 284 mg/dL 70-110 Capillary blood glucose measurement by glucometer (mass/volume) - 08/07/18 16:27 Capillary blood glucose measurement by glucometer (mass/volume) 281 mg/dL 70-110 Capillary blood glucose measurement by glucometer (mass/volume) - 08/07/18 20:10 Capillary blood glucose measurement by glucometer (mass/volume) 247 mg/dL 70-110 Capillary blood glucose measurement by glucometer (mass/volume) - 08/08/18 04:06 Capillary blood glucose measurement by glucometer (mass/volume) 298 mg/dL 70-110 Complete blood count (CBC) with automated white blood cell (WBC) differential - 08/08/18 10:12 Blood leukocytes automated count (number/volume) 9.4 10*3/uL 4.3-11.0 Blood erythrocytes automated count (number/volume) 4.44 10*6/uL 4.35-5.85 Venous blood hemoglobin measurement (mass/volume) 12.8 g/dL 13.3-17.7 Blood hematocrit (volume fraction) 40 % 40-54 Automated erythrocyte mean corpuscular volume 89 [foz_us] 80-99 Automated erythrocyte mean corpuscular hemoglobin (mass per erythrocyte) 29 pg 25-34 Automated erythrocyte mean corpuscular hemoglobin concentration measurement (mass/volume) 32 g/dL 32-36 Automated erythrocyte distribution width ratio 13.7 % 10.0- 14.5 Automated blood platelet count (count/volume) 322 10*3/uL 130-400 Automated blood platelet mean volume measurement 9.7 [foz_us] 7.4-10.4 Automated blood neutrophils/100 leukocytes 79 % 42-75 Automated blood lymphocytes/100 leukocytes 12 % 12-44 Blood monocytes/100 leukocytes 9 % 0-12 Automated blood eosinophils/100 leukocytes 1 % 0-10 Automated blood basophils/100 leukocytes 0 % 0-10 Blood neutrophils automated count (number/volume) 7.4 10*3 1.8-7.8 Blood lymphocytes automated count (number/volume) 1.1 10*3 1.0-4.0 Blood monocytes automated count (number/volume) 0.8 10*3 0.0- 1.0 Automated eosinophil count 0.1 10*3/uL 0.0-0.3 Automated blood basophil count (count/volume) 0.0 10*3/uL 0.0-0.1 Comprehensive metabolic panel - 08/08/18 10:12 Serum or plasma sodium measurement (moles/volume) 136 mmol/L 135-145 Serum or plasma potassium measurement (moles/volume) 4.1 mmol/L 3.6-5.0 Serum or plasma chloride measurement (moles/volume) 99 mmol/L 98-107 Carbon dioxide 28 mmol/L 21-32 Serum or plasma anion gap determination (moles/volume) 9 mmol/L 5-14 Serum or plasma urea nitrogen measurement (mass/volume) 18 mg/dL 7-18 Serum or plasma creatinine measurement (mass/volume) 1.13 mg/dL 0.60-1.30 Serum or plasma urea nitrogen/creatinine mass ratio 16 NRG Serum or plasma creatinine measurement with calculation of estimated glomerular filtration rate > NRG Serum or plasma glucose measurement (mass/volume) 282 mg/dL 70-105 Serum or plasma calcium measurement (mass/volume) 9.1 mg/dL 8.5-10.1 Serum or plasma total bilirubin measurement (mass/volume) 0.7 mg/dL 0.1-1.0 Serum or plasma alkaline phosphatase measurement (enzymatic activity/volume) 97 U/L 40-136 Serum or plasma aspartate aminotransferase measurement (enzymatic activity/volume) 15 U/L 5-34 Serum or plasma alanine aminotransferase measurement (enzymatic activity/volume) 21 U/L 0-55 Serum or plasma protein measurement (mass/volume) 6.2 g/dL 6.4-8.2 Serum or plasma albumin measurement (mass/volume) 3.7 g/dL 3.2-4.5 CALCIUM CORRECTED 9.3 mg/dL 8.5-10.1 Liver function panel (serum or plasma alk phos, alb, total and direct bili, total protein, ALT, AST) - 08/08/18 10:12 Bilirubin direct 0.3 mg/dL 0.0-0.3 Serum or plasma indirect bilirubin measurement (mass/volume) 0.4 mg/dL NRG Serum or plasma amylase measurement (enzymatic activity/volume) - 08/08/18 10:12 Serum or plasma amylase measurement (enzymatic activity/volume) 25 U/L 25-125 Lipase - 08/08/18 10:12 Lipase 22 U/L 8-78 Capillary blood glucose measurement by glucometer (mass/volume) - 08/08/18 11:15 Capillary blood glucose measurement by glucometer (mass/volume) 266 mg/dL 70-110 Encounters ACCT No. Visit Date/Time Discharge Status Pt. Type Provider Facility Loc./Unit Complaint [id number] 08/04/2018 14:22:00 08/04/2018 15:15:00 DIS Outpatient YOVANY ARVIZU MD [facility] PREOP PROSTATE CANCER [id number] 07/17/2018 18:37:00 07/19/2018 13:20:00 DIS Inpatient MARKUS MARTINEZ DO [facility] 4TH CHEST PAIN;URINARY RETENTION [id number] 07/16/2018 15:17:00 07/16/2018 18:00:00 DIS Outpatient ERLIN WRIGHT [facility] ER KIDNEY PROBLEMS [id number] 07/16/2018 04:01:00 07/16/2018 07:01:00 DIS Emergency BHAKTI CRUZ MD [facility] ER PROBLEMS WITH URINATION [id number] 05/02/2018 07:05:00 05/02/2018 08:27:00 DIS [facility] [id number] 04/30/2018 05:39:00 04/30/2018 12:13:00 DIS Outpatient BEBO CONNER MD [facility] PREOP LEFT CATARACT [id number] 08/04/2012 07:58:00 08/04/2012 23:59:59 CLS Outpatient [id number] 08/06/2018 07:22:00 ACT Outpatient YOVANY ARVIZU MD [facility] 4TH PROSTATE CANCER
--- NOTE | 2018-08-08 14:33 | Consultation (Surgery) ---
History of Present Illness History of Present Illness Patient Consulted On(yared/time) 08/08/18 14:27 Date Seen by Provider: Aug 08, 2018 Time Seen by Provider: 11:00 History of Present Illness consult requested by Dr. Nicolasa Orosco for postoperative nausea and cholelithiasis. Patient is a 73-year-old male who just underwent TURPpatient has been having significant nausea postoperatively. Patient had CT scan which demonstrated a large amount of stool within the colon and cholelithiasis and postoperative changes with some air in the bladder. Patient also had gallbladder ultrasound obtained showing cholelithiasis no gallbladder wall thickening. Patient states that he has had some chronic constipation symptoms for quite some time. He recently take Linzess which patient states he had extremely large eruptive bowel movements and his made him quit taking it. Patient still having some difficulty a regular basis with chronic constipation he states. Patient pain is sometimes in the epigastric right upper quadrant and left lower quadrant pain. Patient really hasn't taken much. Patient did have some significant bowel movements with enema. Patient pain moderate. Patient denies any fever sweats chills shortness of breath or chest pain. Allergies and Home Medications Allergies Coded Allergies: meperidine (Verified Allergy, Severe, Mental Confusion, 07/16/18) Home Medications Acetaminophen 500 Mg Tablet, 1,000 MG PO DAILY PRN for PAIN-MILD, (Reported) Alprazolam 0.5 Mg Tablet, 0.5 MG PO TID PRN for ANXIETY, (Reported) Aspirin 81 Mg Tablet.dr, 162 MG PO DAILY, (Reported) TAKES 2 (81MG) TABLETS Benazepril HCl 5 Mg Tablet, 5 MG PO DAILY, (Reported) Bethanechol Chloride 25 Mg Tablet, 50 MG PO ACHS, (Reported) take 2 (25mg) tabs Clopidogrel Bisulfate 75 Mg Tablet, 75 MG PO DAILY, (Reported) Escitalopram Oxalate 10 Mg Tablet, 10 MG PO HS, (Reported) Insulin NPH Hum/Reg Insulin Hm 100 Unit/1 Ml Vial, 80 UNITS SC BID, (Reported) Neomycin Tillman/Bacitrac Zn/Poly 28.3 Gm Oint...g., TP TID, (Reported) APPLY TO LIPS Pantoprazole Sodium 40 Mg Tablet.dr, 40 MG PO DAILY, (Reported) Potassium Chloride 10 Meq Tablet.er, 10 MEQ PO DAILY, (Reported) Simvastatin 20 Mg Tablet, 10 MG PO HS, (Reported) TAKES 1/2 (20MG) TABLETS Tamsulosin HCl 0.4 Mg Cap, 0.4 MG PO BID, (Reported) Patient Home Medication List Home Medication List Reviewed: Yes Past Ioiwans-Hpkckf-Zhewbr Hx Patient Social History Alcohol Use: Denies Use Recreational Drug Use: No Smoking Status: Former Smoker Former Smoker, Quit: Aug 05, 2015 Type Used: Smokeless Tobacco 2nd Hand Smoke Exposure: No Recent Foreign Travel: No Contact w/Someone Who Travel: No Recent Infectious Disease Expo: No Recent Hopitalizations: No Immunizations Up To Date Tetanus Booster (TDap): Unknown PED Vaccines UTD: No Date of Pneumonia Vaccine: Dec 02, 2017 Seasonal Allergies Seasonal Allergies: No Surgeries History of Surgeries: Yes (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, leg f x) Surgeries: Coronary Stent Respiratory History of Respiratory Disorde: Yes (oxygen at hs) Respiratory Disorders: COPD Cardiovascular History of Cardiac Disorders: Yes Cardiac Disorders: Coronary Artery Disease, High Cholesterol, Hypertension Neurological History of Neurological Disord: Yes Neurological Disorders: Brain Tumor, Headaches /Migraines, Vertigo Reproductive System Hx Reproductive Disorders: No Genitourinary History of Genitourinary Disor: Yes Genitourinary Disorders: Benign Prostatic Hyperpl, Prostate Problems Gastrointestinal History of Gastrointestinal Di: Yes Gastrointestinal Disorders: Gastroesophageal Reflux Musculoskeletal History of Musculoskeletal Dis: Yes Musculoskeletal Disorders: Arthritis, Fractures Endocrine History of Endocrine Disorders: Yes Endocrine Disorders: Diabetes, Insulin dep HEENT History of HEENT Disorders: No (cataract removed) 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 Review of Systems-General Constitutional: no symptoms reported EENTM: no symptoms reported Respiratory: no symptoms reported Cardiovascular: no symptoms reported Gastrointestinal: see HPI Genitourinary: see HPI Musculoskeletal: no symptoms reported Skin: no symptoms reported Psychiatric/Neurological: No Symptoms Reported Physical Exam-General Problems Physical Exam Vital Signs Vital Signs - First Documented 08/06/18 08/06/18 08:23 11:14 Temp 97.3 Pulse 78 Resp 18 B/P (MAP) 132/96 (108) Pulse Ox 100 O2 Delivery Room Air O2 Flow Rate 8 Capillary Refill : General Appearance: WD/WN, no apparent distress HEENT: PERRL/EOMI (postsurgical changes to the left lower lip) Neck: non-tender, supple Respiratory: chest non-tender, no respiratory distress, no accessory muscle use Cardiovascular: regular rate, rhythm Gastrointestinal: distended (Mild), tenderness ( and right upper quadrant epigastric and left lower quadrant, no guarding or rebounding) Rectal: deferred Back: no CVA tenderness Extremities: normal range of motion, normal inspection Neurologic/Psychiatric: alert, normal mood/affect, oriented x 3 Skin: normal color, warm/dry Lymphatic: no adenopathy Data Review Labs Laboratory Tests 08/07/18 16:27: Glucometer 281H 08/07/18 20:10: Glucometer 247H 08/08/18 04:06: Glucometer 298H 08/08/18 10:12: White Blood Count 9.4, Red Blood Count 4.44, Hemoglobin 12.8L, Hematocrit 40, Mean Corpuscular Volume 89, Mean Corpuscular Hemoglobin 29, Mean Corpuscular Hemoglobin Concent 32, Red Cell Distribution Width 13.7, Platelet Count 322, Mean Platelet Volume 9.7, Neutrophils (%) (Auto) 79H, Lymphocytes (%) (Auto) 12, Monocytes (%) (Auto) 9, Eosinophils (%) (Auto) 1, Basophils (%) (Auto) 0, Neutrophils # (Auto) 7.4, Lymphocytes # (Auto) 1.1, Monocytes # (Auto) 0.8, Eosinophils # (Auto) 0.1, Basophils # (Auto) 0.0, Sodium Level 136, Potassium Level 4.1, Chloride Level 99, Carbon Dioxide Level 28, Anion Gap 9, Blood Urea Nitrogen 18, Creatinine 1.13, Estimat Glomerular Filtration Rate > 60, BUN/Creatinine Ratio 16, Glucose Level 282H, Calcium Level 9.1, Corrected Calcium 9.3, Total Bilirubin 0.7, Direct Bilirubin 0.3, Indirect Bilirubin 0.4, Aspartate Amino Transf (AST/SGOT) 15, Alanine Aminotransferase (ALT/SGPT) 21, Alkaline Phosphatase 97, Total Protein 6.2L, Albumin 3.7, Amylase Level 25, Lipase 22 08/08/18 11:15: Glucometer 266H Assessment/Plan Assessment/Plan Assessment/Plan Chronic constipation Cholelithiasis Status post UTURP Nausea I feel that patient's cholelithiasis is incidental, gallbladder has no gallbladder wall thickening or changes suggestive of cholecystitis. Patient has nausea but is distended and tenderness is in multiple locations not just were gallbladder is located. I feel this is more of a chronic constipation issue. We'll give back citrate and see how his symptoms proceed. Start on clear liquid diet as well. Clinical Quality Measures DVT/VTE Risk/Contraindication: Risk Factor Score Per Nursin RFS Level Per Nursing on Admit: 4+=Very High GINA SALMERON DO Aug 08, 2018 14:33
[2018-08-08] MEDS: SIMvastatin 20 MG (ZOCOR) TAB PO SCH (20:07)
[2018-08-09] MEDS: NS IV 1000 ML 1,000 ML IV SCH ×2 (01:43→11:28)
[2018-08-09 04:00] VITALS: BP 163/80
[2018-08-09] MEDS: inSUlin ASPART (NovoLOG) 1 UNIT/0.01 ML (CHARGE PER UNIT) SC SCH ×2 (06:27→11:28)
[2018-08-09] MEDS: PANTOPRAZOLE 40 MG (PROTONIX) VIAL IV SCH (08:20)
[2018-08-09] MEDS: DOCUSATE SODIUM 100 MG (COLACE) CAP PO SCH (08:20)
[2018-08-09] MEDS: KCL 10 MEQ TAB (MICRO K) PO SCH (08:20)
[2018-08-09] MEDS: lisINopril 5 MG (PRINIVIL) TABLET PO SCH (08:21)
[2018-08-09 08:25] VITALS: BP 137/70
--- NOTE | 2018-08-09 09:00 | NUR ---
LIQUID BROWN STOOL, SHOWER TAKEN, ZULAY WELL, DENIES PAIN OR NAUSEA, WALKED IN [place] THEN UP IN CHAIR
[2018-08-09] MEDS ORDERED: cefTRIAXone FOR IV USE 1,000 MG in WATER (STERILE) FOR INJECTION 10 ML IV ONE (11:15)
--- NOTE | 2018-08-09 11:28 | Progress Note-Hospitalist ---
Subjective HPI/CC On Admission Date Seen by Provider: Aug 09, 2018 Time Seen by Provider: 11:15 The patient is a 73-year-old white male who has just undergone TURP by Dr. Damon. The hospitalists are consulted relative to management of his diabetes and other medications. The patient relates that he has had epigastric pain for some time. In the beginning this was amenable to Protonix but over the last several weeks he has had rather continued pain. There is some nausea that is associated with this. He has become fearful of eating because of this. He is also a type II diabetic insulin requiring. Subjective/Events-last exam Patient had 10 diarrheal bowel movements last night. Has had no further nausea vomiting this morning. Denies having any abdominal pain. Is passing his urine without any difficulties. He had a clear liquid diet which he tolerated well this morning. Discussion is had with Dr. Ceja wants to have them have one dose of antibiotic and then if he is eating is okay to discharge this afternoon. The patient has no other complaint for me this morning Review of Systems Gastrointestinal: Diarrhea Objective Exam Vital Signs Vital Signs Date Time Temp Pulse Resp B/P (MAP) Pulse Ox O2 Delivery O2 Flow Rate FiO2 08/09/18 09:45 Room Air 08/09/18 08:25 98.2 64 22 137/70 (92) 96 0.00 Capillary Refill : General Appearance: No Apparent Distress, WD/WN HEENT: Normal ENT Inspection, Other (Edentulous) Neck: Normal Inspection Respiratory: Chest Non Tender, Lungs Clear, No Accessory Muscle Use, No Respiratory Distress, Decreased Breath Sounds (breath sounds are distant) Cardiovascular: Regular Rate, Rhythm, No Edema, No Gallop, No JVD, No Murmur, Normal Peripheral Pulses Gastrointestinal: Normal Bowel Sounds, Non Tender, Distended Extremity: Non Tender, No Calf Tenderness Neurologic/Psychiatric: Alert, Oriented x3, No Motor/Sensory Deficits, Normal Mood/Affect Results/Procedures Lab Patient resulted labs reviewed. Assessment/Plan Assessment and Plan Assess & Plan/Chief Complaint 1. Nausea and vomiting resolved will advance diet 2. Diarrhea uncertain etiology this is since resolved the patient is afebrile 3. Status post TURP passing his urine well 4. Asymptomatic cholelithiasis 5. Diabetes-will advance to diabetic diet continue his home medications and discharge this afternoon if eating well Clinical Quality Measures DVT/VTE Risk/Contraindication: Risk Factor Score Per Nursin RFS Level Per Nursing on Admit: 4+=Very High ABBY QUINN MD Aug 09, 2018 11:28
--- NOTE | 2018-08-09 11:30 | NUR ---
DR ARVIZU CALLED REGARDING HOME ASPIRIN AND PLAVIX, INSTRUCTED NURSE TO HOME MEDS UNTIL FOLLOW UP APPOINTMENT, DR QUINN NOTIFIED OF ORDER
--- NOTE | 2018-08-09 12:00 | NUR ---
DIET CHANGED TO SOFT, ATE 75 PERCENT, ZULAY WELL, DENIES NAUSEA OR PAIN
--- NOTE | 2018-08-09 12:23 | Progress Note ---
Subjective Date Seen by a Provider: Aug 09, 2018 Time Seen by a Provider: 12:21 Subjective/Events-last exam patient is feeling significantly better. Had multiple large bowel movements last night. Not having any abdominal pain. Her any nausea or vomiting. Patient denies any fever sweats chills shortness of breath or chest pain. Tolerating clear liquids. Objective Exam Vital Signs Date Time Temp Pulse Resp B/P (MAP) Pulse Ox O2 Delivery O2 Flow Rate FiO2 08/09/18 09:45 Room Air 08/09/18 08:56 Room Air 08/09/18 08:25 98.2 64 22 137/70 (92) 96 Room Air 0.00 08/09/18 04:00 97.9 74 20 163/80 (107) 92 Room Air 08/08/18 23:59 98.8 70 20 176/80 (112) 94 Room Air 08/08/18 20:59 98.1 67 20 153/79 (103) 96 Room Air 08/08/18 20:10 Room Air 08/08/18 15:57 97.8 67 20 140/74 (96) 93 Room Air I & O 08/09/18 07:00 Intake Total 2000 ml Output Total 1750 ml Balance 250 ml Capillary Refill : General Appearance: No Apparent Distress, WD/WN HEENT: Normal ENT Inspection, Other (Edentulous) Neck: Normal Inspection Respiratory: Chest Non Tender, No Accessory Muscle Use, No Respiratory Distress Cardiovascular: Regular Rate, Rhythm, No Murmur, Normal Peripheral Pulses Gastrointestinal: non tender, soft, distended, tenderness Extremity: Non Tender, No Calf Tenderness Neurologic/Psychiatric: Alert, Oriented x3, No Motor/Sensory Deficits, Normal Mood/Affect Skin: Normal Color, Warm/Dry Lymphatic: No Adenopathy Results Lab Laboratory Tests 08/08/18 15:57: Glucometer 235H 08/08/18 21:02: Glucometer 240H 08/09/18 05:19: Glucometer 235H 08/09/18 11:07: Glucometer 280H Assessment/Plan Assessment/Plan Assessment/Plan Chronic constipation Cholelithiasis Status post UTURP Nausea I don't feel his cholelithiasis is causing his pain since he is feeling significantly better after having multiple bowel movements. He is no longer having nausea. No surgical intervention at this time. Advance diet and if tolerates okay to DC home. Clinical Quality Measures DVT/VTE Risk/Contraindication: Risk Factor Score Per Nursin RFS Level Per Nursing on Admit: 4+=Very High GINA SALMERON DO Aug 09, 2018 12:23
[2018-08-09 12:59] VITALS: BP 140/66
--- NOTE | 2018-08-09 13:00 | NUR ---
DISCHARGE INSTRUCTIONS GIVEN, VERBALIZED UNDERSTANDING, NURSE TALKED TO ABOUT DISCHARGE FOLLOW UP AND MEDICATIONS ON PHONE, IV DC, SITE WITHOUT REDNESS OR SWELLING, WALKED IN [place] [facility] [facility]
[2018-08-09 13:20] VITALS: BP 140/66
--- NOTE | 2018-08-09 13:20 | NUR ---
YOKASTA BALDWIN demonstrates understanding of discharge instructions and accurately returns instructions upon questioning. Copy of Post-Discharge Instructions and Medication Discharge Instructions given to PATIENT. YOKASTA BALDWIN IS able to manage continuing needs after discharge. Patients belongings returned to PATIENT. Skin dry and intact; no breakdown noted. Patient discharged from 426-1 on 08/09/18 at 1320. YOKASTA BALDWIN left floor via W/C, accompanied by STAFF.
--- NOTE | 2018-08-16 01:42 | DISCHARGE SUMMARY ---
DATE OF SERVICE: CONDITION ON DISCHARGE: Satisfactory. ADMITTING DIAGNOSES: History of cancer of the prostate, symptoms of prostatism and urinary retention. DISCHARGE DIAGNOSES: History of cancer of the prostate, symptoms of prostatism and urinary retention. OPERATION PERFORMED: Transurethral resection of the prostate on 08/06/2018. SUMMARY: A 73-year-old white man with history of cancer of the prostate and voiding symptoms with retention, refractory to medical treatment. History and physical is dictated. The patient underwent the above-mentioned surgery. His postoperative course urologically was fine. Urine gradually cleared up. Catheter was removed and the patient was voiding freely and clear urine. He, however, had some nausea. X-rays were obtained that showed gallstones, but no acute cholecystitis and no obstruction. Consultation with Dr. Roblero was undertaken who agreed with the above evaluation. The patient gradually got better and he was dismissed home on 08/09/2018, to refrain from any strenuous activity, heavy lifting, driving or riding for long distances, keep his bowel soft and moving, was given prescription for Cipro. Follow up office appointment in 2 weeks, call me or come to the emergency room with any problem. Later on, we will address the gallbladder issues once he from the prostate surgery. Job ID: [id number] DocumentID: [id number] Dictated Date: 08/15/2018 09:29:35 [employer] Date: 08/16/2018 01:41:53 Dictated By: YOVANY ARVIZU MD
== END 2018-08-09 13:20 | disposition home or self-care (01) | DRG 989 ==
LOC: SDC 07:22 → 4TH 12:22 → SDC 08-08 09:00 → 4TH 08-08 09:00
PROVIDERS: ADMIT Urology; ATTEND Urology
PROC: 0VT08ZZ Resection of Prostate, Via Natural or Artificial Opening Endoscopic (ICD-10-PCS; principal; 2018-08-06 09:56)
DX: K91.89 Other postprocedural complications and disorders of digestive system (principal); R11.2 Nausea with vomiting, unspecified; N40.1 Benign prostatic hyperplasia with lower urinary tract symptoms; R33.8 Other retention of urine; C61 Malignant neoplasm of prostate; K59.09 Other constipation; K80.20 Calculus of gallbladder without cholecystitis without obstruction; E11.9 Type 2 diabetes mellitus without complications; J44.9 Chronic obstructive pulmonary disease, unspecified; G47.30 Sleep apnea, unspecified; I25.10 Atherosclerotic heart disease of native coronary artery without angina pectoris; E78.00 Pure hypercholesterolemia, unspecified; I10 Essential (primary) hypertension; K21.9 Gastro-esophageal reflux disease without esophagitis; E66.9 Obesity, unspecified; Z68.35 Body mass index [BMI] 35.0-35.9, adult; Z79.4 Long term (current) use of insulin; Z87.891 Personal history of nicotine dependence; Z95.5 Presence of coronary angioplasty implant and graft
CPT/HCPCS: 36415; 74019; 74176; 76700; 80053; 80076; 82150; 82962; 83690; 85025; 86850; 86900; 86901; 88305; 90471; 93005; 94664

== ENCOUNTER 2018-10-21 10:52 | Emergency (ER) | payer MEDICARE, MEDICAID ==
[~2018-10-21] VITALS: Ht 182.9 cm; Wt 111.1 kg
[2018-10-21 11:15] LABS: BASOPHILS % (AUTO) 1 % (0-10); EOSINOPHILS # (AUTO) 0.1 10^3/uL (0.0-0.3); EOSINOPHILS % (AUTO) 1 % (0-10); HEMATOCRIT 46 % (40-54); HEMOGLOBIN 15.7 G/DL (13.3-17.7); LYMPHOCYTES # (AUTO) 1.3 X 10^3 (1.0-4.0); LYMPHOCYTES % (AUTO) 21 % (12-44); MEAN CORPUSCULAR HEMOGLOBIN 29 PG (25-34); MEAN CORPUSCULAR HGB CONC 34 G/DL (32-36); MEAN CORPUSCULAR VOLUME 86 FL (80-99); MEAN PLATELET VOLUME 10.2 FL (7.4-10.4); MONOCYTES # (AUTO) 0.5 X 10^3 (0.0-1.0); MONOCYTES % (AUTO) 8 % (0-12); NEUTROPHILS # (AUTO) 4.2 X 10^3 (1.8-7.8); NEUTROPHILS % (AUTO) 69 % (42-75); PLATELET COUNT 261 10^3/uL (130-400); RED CELL DISTRIBUTION WIDTH 13.9 % (10.0-14.5)
[2018-10-21] MEDS ORDERED: NITROGLYCERIN 0.4 MG SL TABS BTL 25'S SL PRN (11:15)
[2018-10-21] MEDS ORDERED: ASPIRIN 81 MG CHEW (CHILDREN'S ASA) PO ONE (11:15)
--- NOTE | 2018-10-21 11:19 | ED Chest Pain ---
General Chief Complaint: Chest Pain Stated Complaint: CHEST PAIN;NAUSEA Nursing Triage Note: pt c/o CP for the last 4 days. Today he woke up and it felt much worse so he decided to come get it checked out. Pain is 4/10 now. Nursing Sepsis Screen: No Definite Risk Source: patient Exam Limitations: no limitations History of Present Illness Date Seen by Provider: Oct 21, 2018 Time Seen by Provider: 11:17 Initial Comments To ER with a sharp left-sided chest pain that began 4 days ago, present most of the time and intermittently worse. The pain is sharp left-sided worsened with deep breathing. He's had a slight cough. No shortness of breath. This morning he awakened at 3 AM with nausea decided to be evaluated today. No fever or chills. History of [address] Skinner at [facility] Timing/Duration: 3-4 days Severity/Quality: moderate, sharp Location: central Radiation: no radiation Activities at Onset: none ASA po [employer] RESOURCE TEACHER: No NTG SL [employer] RESOURCE TEACHER: No Associated Symptoms: denies symptoms Allergies and Home Medications Allergies Coded Allergies: meperidine (Verified Allergy, Severe, Mental Confusion, 07/16/18) Home Medications Acetaminophen 500 Mg Tablet, 1,000 MG PO DAILY PRN for PAIN-MILD, (Reported) Alprazolam 0.5 Mg Tablet, 0.5 MG PO TID PRN for ANXIETY, (Reported) Benazepril HCl 5 Mg Tablet, 5 MG PO DAILY, (Reported) Bethanechol Chloride 25 Mg Tablet, 50 MG PO ACHS, (Reported) take 2 (25mg) tabs Escitalopram Oxalate 10 Mg Tablet, 10 MG PO HS, (Reported) Insulin NPH Hum/Reg Insulin Hm 100 Unit/1 Ml Vial, 80 UNITS SC BID, (Reported) Neomycin Tillman/Bacitrac Zn/Poly 28.3 Gm Oint...g., TP TID, (Reported) APPLY TO LIPS Pantoprazole Sodium 40 Mg Tablet.dr, 40 MG PO DAILY, (Reported) Potassium Chloride 10 Meq Tablet.er, 10 MEQ PO DAILY, (Reported) Simvastatin 20 Mg Tablet, 10 MG PO HS, (Reported) TAKES 1/2 (20MG) TABLETS Tamsulosin HCl 0.4 Mg Cap, 0.4 MG PO BID, (Reported) Patient Home Medication List Home Medication List Reviewed: Yes Review of Systems Review of Systems Constitutional: see HPI EENTM: No Symptoms Reported Respiratory: No Symptoms Reported Cardiovascular: See HPI, Chest Pain Gastrointestinal: See HPI Genitourinary: No Symptoms Reported Musculoskeletal: no symptoms reported Skin: no symptoms reported Psychiatric/Neurological: No Symptoms Reported Endocrine: No Symptoms Reported Past Ctibrps-Kendgo-Etgfih Hx Patient Social History Alcohol Use: Denies Use Recreational Drug Use: No Type Used: Smokeless Tobacco Former Smoker, Quit: Aug 05, 2015 2nd Hand Smoke Exposure: No Recent Foreign Travel: No Contact w/Someone Who Travel: No Recent Infectious Disease Expo: No Recent Hopitalizations: No Immunizations Up To Date Tetanus Booster (TDap): Unknown PED Vaccines UTD: No Date of Pneumonia Vaccine: Dec 02, 2017 Seasonal Allergies Seasonal Allergies: No Past Medical History Surgeries: Yes (7 stents) Coronary Stent Respiratory: Yes (oxygen at hs) COPD Currently Using CPAP: No Currently Using BIPAP: No Cardiac: Yes Heart Attack Neurological: Yes Brain Tumor, Headaches /Migraines, Vertigo Reproductive Disorders: No Genitourinary: Yes Benign Prostatic Hyperpl, Prostate Problems Gastrointestinal: Yes Gastroesophageal Reflux Musculoskeletal: Yes Arthritis, Fractures Endocrine: Yes Diabetes, Insulin dep HEENT: No (cataract removed) Cancer: Yes (lip) Prostate, Skin Did You Recieve Any Treatments: Yes What Type of Treatment Did You: Radiation, Surgical Intervention Psychosocial: No Integumentary: No Blood Disorders: No Adverse Reaction/Blood Tranf: No Family Medical History Patient reports no known family medical history. No Pertinent Family Hx Physical Exam Vital Signs Vital Signs - First Documented Capillary Refill : Less Than 3 Seconds Height, Weight, BMI Height: 6'0" Weight: 245lbs. 0.0oz. [id number]; 35.1 BMI Method:Stated General Appearance: No Apparent Distress, WD/WN Neck: Full Range of Motion, Normal Inspection Respiratory: No Accessory Muscle Use, No Respiratory Distress Cardiovascular: Regular Rate, Rhythm, Normal Peripheral Pulses Gastrointestinal: Non Tender, Soft Neurologic/Psychiatric: Alert, Oriented x3 Skin: Normal Color, Warm/Dry Progress/Results/Core Measures Results/Orders Lab Results Laboratory Tests Test 10/21/18 11:01 10/21/18 13:05 Range/Units White Blood Count 6.0 4.3-11.0 10^3/uL Red Blood Count 5.39 4.35-5.85 10^6/uL Hemoglobin 15.7 13.3-17.7 G/DL Hematocrit 46 40-54 % Mean Corpuscular Volume 86 80-99 FL Mean Corpuscular Hemoglobin 29 25-34 PG Mean Corpuscular Hemoglobin Concent 34 32-36 G/DL Red Cell Distribution Width 13.9 10.0-14.5 % Platelet Count 261 130-400 10^3/uL Mean Platelet Volume 10.2 7.4-10.4 FL Neutrophils (%) (Auto) 69 42-75 % Lymphocytes (%) (Auto) 21 12-44 % Monocytes (%) (Auto) 8 0-12 % Eosinophils (%) (Auto) 1 0-10 % Basophils (%) (Auto) 1 0-10 % Neutrophils # (Auto) 4.2 1.8-7.8 X 10^3 Lymphocytes # (Auto) 1.3 1.0-4.0 X 10^3 Monocytes # (Auto) 0.5 0.0-1.0 X 10^3 Eosinophils # (Auto) 0.1 0.0-0.3 10^3/uL Basophils # (Auto) 0.0 0.0-0.1 10^3/uL Prothrombin Time 12.7 12.2-14.7 SEC INR Comment 0.9 0.8-1.4 Activated Partial Thromboplast Time 26 24-35 SEC Sodium Level 136 135-145 MMOL/L Potassium Level 4.5 3.6-5.0 MMOL/L Chloride Level 101 98-107 MMOL/L Carbon Dioxide Level 24 21-32 MMOL/L Anion Gap 11 5-14 MMOL/L Blood Urea Nitrogen 19 H 7-18 MG/DL Creatinine 1.28 0.60-1.30 MG/DL Estimat Glomerular Filtration Rate 55 BUN/Creatinine Ratio 15 Glucose Level 326 H 70-105 MG/DL Calcium Level 9.8 8.5-10.1 MG/DL Corrected Calcium 9.8 8.5-10.1 MG/DL Magnesium Level 1.7 1.6-2.4 MG/DL Total Bilirubin 0.6 0.1-1.0 MG/DL Aspartate Amino Transf (AST/SGOT) 23 5-34 U/L Alanine Aminotransferase (ALT/SGPT) 31 0-55 U/L Alkaline Phosphatase 155 H 40-136 U/L Myoglobin 77.7 10.0-92.0 NG/ML Troponin I < 0.028 < 0.028 <0.028 NG/ML B-Type Natriuretic Peptide < 10.0 <100.0 PG/ML Total Protein 7.2 6.4-8.2 GM/DL Albumin 4.0 3.2-4.5 GM/DL Lipase 154 H 8-78 U/L My Orders Orders - 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 Cbc With Automated Diff (10/21/18 11:09) Magnesium (10/21/18 11:09) Chest 1 View, Ap/Pa Only (10/21/18 11:09) Ekg Tracing (10/21/18 11:09) Cardiac Profile 1 (10/21/18 11:09) Comprehensive Metabolic Panel (10/21/18 11:09) Myoglobin Serum (10/21/18 11:09) Protime With Inr (10/21/18 11:09) Partial Thromboplastin Time (10/21/18 11:09) O2 (10/21/18 11:09) Monitor-Rhythm Ecg Trace Only (10/21/18 11:09) Lipid Panel (10/22/18 06:00) Ed Iv/Invasive Line Start (10/21/18 11:09) Lipase (10/21/18 11:09) BNP (10/21/18 11:09) Nitroglycerin 0.4 Mg Btl 25's (Nitrostat (10/21/18 11:15) Aspirin Chewable Tablet (Baby Aspirin Ch (10/21/18 11:15) Ct Angio Chest W (10/21/18 11:16) Iohexol Injection (Omnipaque 350 Mg/Ml 1 (10/21/18 11:45) Received Contrast (Hold Metformin- Contr (10/21/18 11:45) Ns (Ivpb) (Sodium Chloride 0.9% Ivpb Bag (10/21/18 11:45) Ns Iv 1000 Ml (Sodium Chloride 0.9%) (10/21/18 12:00) Troponin I (10/21/18 13:00) Medications Given in ED Current Medications Medications Dose Ordered Sig/Sylvie Route Start Time Stop Time Status Last Admin Dose Admin Aspirin 324 mg ONCE ONCE PO 10/21/18 11:15 10/21/18 11:16 DC 10/21/18 11:19 162 MG Iohexol 100 ml ONCE ONCE IV 10/21/18 11:45 10/21/18 11:46 DC 10/21/18 11:56 84 ML Sodium Chloride 100 ml ONCE ONCE IV 10/21/18 11:45 10/21/18 11:46 DC 10/21/18 11:56 80 ML Vital Signs/I&O 10/21/18 10/21/18 10:55 10:55 Temp 98.8 Pulse 80 Resp 20 B/P (MAP) 130/81 (97) Pulse Ox 100 O2 Delivery Room Air Room Air Blood Pressure Mean: 97 Departure Communication (Admissions) EKG today shows no changes from previous on 08/08/18 except for the resolution today of the first-degree AV block 1344-repeat troponin negative, symptom free still. Make an appointment with Dr. Martinez tomorrow at 2:40 PM he should arrive at 220 Impression Primary Impression: Pleuritic chest pain Disposition: 01 HOME, SELF-CARE Condition: Stable Departure-Patient Inst. Decision time for Depature: 12:42 Referrals: NO,LOCAL PHYSICIAN (PCP) Primary Care Physician INGRIS GUTIÉRREZ (Family) Primary Care Physician WALLY MARTINEZ MD [facility] Fco GALLARDO MD, BASHAR J MD Patient Instructions: Pleuritic Chest Pain (DC) Add. Discharge Instructions: 1. Return to ER for any concerns 2. Your to see Dr. 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 Copy Copies To 1: WALLY MARTINEZ MD [facility] CCDS ELYSIA HAYS APRN Oct 21, 2018 11:19
[2018-10-21 11:22] LABS: INR 0.9 (0.8-1.4); PROTHROMBIN TIME PATIENT 12.7 SEC (12.2-14.7)
[2018-10-21 11:30] LABS: ALANINE AMINOTRANSFERASE 31 U/L (0-55); ALKALINE PHOSPHATASE 155 U/L (40-136); BILIRUBIN,TOTAL 0.6 MG/DL (0.1-1.0); BUN/CREATININE RATIO 15; CALCIUM 9.8 MG/DL (8.5-10.1); CARBON DIOXIDE 24 MMOL/L (21-32); CHLORIDE 101 MMOL/L (98-107); CREATININE SERUM 1.28 MG/DL (0.60-1.30); GFR ESTIMATED 55; GLUCOSE 326 MG/DL (70-105); LIPASE 154 U/L (8-78); MAGNESIUM 1.7 MG/DL (1.6-2.4); POTASSIUM 4.5 MMOL/L (3.6-5.0); SODIUM 136 MMOL/L (135-145); TOTAL PROTEIN 7.2 GM/DL (6.4-8.2)
[2018-10-21] MEDS ORDERED: HOLD METFORMIN - RECEIVED CONTRAST 20 ML VIAL IV SCH (11:45)
[2018-10-21] MEDS ORDERED: NS 100 ML (IVPB) BAG IV ONE (11:45)
[2018-10-21] MEDS ORDERED: IOHEXOL 350 MG/ML 100 ML (OMNIPAQUE 350) VIAL IV ONE (11:45)
--- NOTE | 2018-10-21 11:46 | Diagnostic Imaging Report ---
INDICATION: Pain. FINDINGS: The lungs are clear although hyperexpanded with changes of COPD. There is no failure, effusion, or pneumothorax. IMPRESSION: Clear lungs with air trapping. No acute finding. Dictated by: Dictated on workstation # [id number]
[2018-10-21] MEDS ORDERED: NS IV 1000 ML 1,000 ML IV SCH (12:00)
--- NOTE | 2018-10-21 12:03 | NUR ---
pt is laying in bed with no complaints. Pt states he is pain free at this time
--- NOTE | 2018-10-21 12:13 | NUR ---
vs- BP 146/79 HR 67 SPO2 94% on RA RR 24 Pain 0/10
--- NOTE | 2018-10-21 12:17 | Diagnostic Imaging Report ---
PROCEDURE: CT angiography of the chest with contrast. TECHNIQUE: Multiple contiguous axial images were obtained through the chest after uneventful bolus administration of intravenous contrast. 3D reconstructed CTA MIP acquisitions were also performed. Auto Exposure Controls were utilized during the CT exam to meet ALARA standards for radiation dose reduction. INDICATION: Chest pain, nausea. COMPARISON: 09/26/2009. FINDINGS: There is motion artifact on multiple images. The pulmonary arteries appear to be diagnostic to the proximal segmental level due to the motion artifact, but no filling defects are seen to indicate a pulmonary embolus. There is moderate calcific atherosclerosis without aneurysm seen. The heart is normal in size. There is no pericardial effusion. No mediastinal adenopathy is seen. No pleural effusion or pneumothorax is seen. No focal consolidation is seen. No acute osseous abnormality is identified. There is fatty infiltration of the liver. No acute abnormality is seen in the upper abdomen. Simple-appearing cysts are seen in the kidneys bilaterally. There are degenerative changes in the spine with no acute osseous abnormality seen. IMPRESSION: 1. Motion artifact on multiple images, but no pulmonary embolus is seen. No focal consolidation. 2. Hepatic steatosis. Dictated by: Dictated on workstation # [id number]
--- NOTE | 2018-10-21 12:49 | NUR ---
pt resting comfortably et talking to friend in room. Pt's vs- BP 155/81 P 64 SPO2 96% on RA R 16
[2018-10-21 13:52] VITALS: BP 155/81
== END 2018-10-21 13:52 | disposition home or self-care (01) ==
LOC: EDUNIT# 10:52 → ER 10:53
DX: R09.1 Pleurisy (principal); J44.9 Chronic obstructive pulmonary disease, unspecified; I25.2 Old myocardial infarction; G43.909 Migraine, unspecified, not intractable, without status migrainosus; N40.0 Benign prostatic hyperplasia without lower urinary tract symptoms; K21.9 Gastro-esophageal reflux disease without esophagitis; E11.9 Type 2 diabetes mellitus without complications; Z85.46 Personal history of malignant neoplasm of prostate; Z85.828 Personal history of other malignant neoplasm of skin; Z86.011 Personal history of benign neoplasm of the brain; Z99.81 Dependence on supplemental oxygen; Z88.5 Allergy status to narcotic agent; Z79.4 Long term (current) use of insulin; Z87.891 Personal history of nicotine dependence
CPT/HCPCS: 36415; 71045; 71275; 80053; 83690; 83735; 83874; 83880; 84484; 85025; 85610; 85730; 93041

== ENCOUNTER 2019-10-09 11:58 | Emergency (ER) | payer MEDICARE, MEDICAID ==
[~2019-10-09] VITALS: Ht 182.8 cm; Wt 111.3 kg
[~2019-10-09 11:58] MED LIST changes: +SIMV20TA26 PO; -SIMV20TA3 PO; -TAMS0.4C98 PO
--- NOTE | 2019-10-09 12:06 | ED Abdominal Pain ---
General Stated Complaint: LEFT LOWER ABDOMINAL PAIN Source of Information: Patient Exam Limitations: No Limitations History of Present Illness Date Seen by Provider: Oct 09, 2019 Time Seen by Provider: 12:04 Initial Comments To ER by EMS from home with c/o llq abdominal pain since saturday. Timing/Duration: 2-3 Days Severity/Quality: Moderate Location: LLQ Radiation: No Radiation Activities at Onset: None Allergies and Home Medications Allergies Coded Allergies: meperidine (Verified Allergy, Severe, Mental Confusion, 07/16/18) Home Medications Acetaminophen 500 Mg Tablet, 1,000 MG PO DAILY PRN for PAIN-MILD, (Reported) Alprazolam 0.5 Mg Tablet, 0.5 MG PO TID PRN for ANXIETY, (Reported) Benazepril HCl 5 Mg Tablet, 5 MG PO DAILY, (Reported) Bethanechol Chloride 25 Mg Tablet, 50 MG PO ACHS, (Reported) take 2 (25mg) tabs Escitalopram Oxalate 10 Mg Tablet, 10 MG PO HS, (Reported) Insulin NPH Hum/Reg Insulin Hm 100 Unit/1 Ml Vial, 80 UNITS SC BID, (Reported) Neomycin Tillman/Bacitrac Zn/Poly 28.3 Gm Oint...g., TP TID, (Reported) APPLY TO LIPS Pantoprazole Sodium 40 Mg Tablet.dr, 40 MG PO DAILY, (Reported) Potassium Chloride 10 Meq Tablet.er, 10 MEQ PO DAILY, (Reported) Simvastatin 20 Mg Tablet, 10 MG PO HS, (Reported) TAKES 1/2 (20MG) TABLETS Tamsulosin HCl 0.4 Mg Cap, 0.4 MG PO BID, (Reported) Patient Home Medication List Home Medication List Reviewed: Yes Review of Systems Review of Systems Constitutional: see HPI EENTM: No Symptoms Reported Respiratory: No Symptoms Reported Cardiovascular: No Symptoms Reported Gastrointestinal: See HPI, Abdominal Pain, Nausea Genitourinary: No Symptoms Reported Musculoskeletal: no symptoms reported Skin: no symptoms reported Psychiatric/Neurological: No Symptoms Reported Endocrine: No Symptoms Reported Hematologic/Lymphatic: No Symptoms Reported Past Kltjrfd-Wxozpa-Vedrmh Hx Patient Social History Type Used: Smokeless Tobacco Former Smoker, Quit: Aug 05, 2015 2nd Hand Smoke Exposure: No Recent Hopitalizations: No Immunizations Up To Date Tetanus Booster (TDap): Unknown PED Vaccines UTD: No Date of Pneumonia Vaccine: Dec 02, 2017 Seasonal Allergies Seasonal Allergies: No Past Medical History Surgeries: Yes (7 stents) Coronary Stent Respiratory: Yes (oxygen at hs) COPD Currently Using CPAP: No Currently Using BIPAP: No Cardiac: Yes Heart Attack Neurological: Yes Brain Tumor, Headaches /Migraines, Vertigo Reproductive Disorders: No Genitourinary: Yes Benign Prostatic Hyperpl, Prostate Problems Gastrointestinal: Yes Gastroesophageal Reflux Musculoskeletal: Yes Arthritis, Fractures Endocrine: Yes Diabetes, Insulin dep HEENT: No (cataract removed) Cancer: Yes (lip) Prostate, Skin Did You Recieve Any Treatments: Yes What Type of Treatment Did You: Radiation, Surgical Intervention Psychosocial: No Integumentary: No Blood Disorders: No Adverse Reaction/Blood Tranf: No Family Medical History Patient reports no known family medical history. No Pertinent Family Hx Physical Exam Vital Signs Vital Signs - First Documented 10/09/19 11:58 Temp 36.6 Pulse 71 Resp 18 B/P (MAP) 134/82 (99) Pulse Ox 94 O2 Delivery Room Air Capillary Refill : Height/Weight/BMI Height: 6'0" Weight: 245lbs. 0.0oz. [id number]; 35.1 BMI Method:Stated General Appearance: WD/WN, no apparent distress HEENT: PERRL/EOMI, normal ENT inspection Respiratory: no respiratory distress, no accessory muscle use Cardiovascular: regular rate, rhythm, no murmur Gastrointestinal: normal bowel sounds, non tender, soft Neurologic/Psychiatric: alert, normal mood/affect, oriented x 3 Skin: normal color, warm/dry Progress/Results/Core Measures Results/Orders Lab Results Laboratory Tests Test 10/09/19 12:20 10/09/19 14:00 Range/Units White Blood Count 6.9 4.3-11.0 10^3/uL Red Blood Count 5.16 4.35-5.85 10^6/uL Hemoglobin 15.2 13.3-17.7 G/DL Hematocrit 46 40-54 % Mean Corpuscular Volume 89 80-99 FL Mean Corpuscular Hemoglobin 30 25-34 PG Mean Corpuscular Hemoglobin Concent 33 32-36 G/DL Red Cell Distribution Width 14.0 10.0-14.5 % Platelet Count 214 130-400 10^3/uL Mean Platelet Volume 10.1 7.4-10.4 FL Neutrophils (%) (Auto) 74 42-75 % Lymphocytes (%) (Auto) 16 12-44 % Monocytes (%) (Auto) 8 0-12 % Eosinophils (%) (Auto) 2 0-10 % Basophils (%) (Auto) 0 0-10 % Neutrophils # (Auto) 5.1 1.8-7.8 X 10^3 Lymphocytes # (Auto) 1.1 1.0-4.0 X 10^3 Monocytes # (Auto) 0.5 0.0-1.0 X 10^3 Eosinophils # (Auto) 0.1 0.0-0.3 10^3/uL Basophils # (Auto) 0.0 0.0-0.1 10^3/uL Prothrombin Time 13.2 12.2-14.7 SEC INR Comment 1.0 0.8-1.4 Sodium Level 141 135-145 MMOL/L Potassium Level 4.1 3.6-5.0 MMOL/L Chloride Level 105 98-107 MMOL/L Carbon Dioxide Level 22 21-32 MMOL/L Anion Gap 14 5-14 MMOL/L Blood Urea Nitrogen 22 H 7-18 MG/DL Creatinine 1.00 0.60-1.30 MG/DL Estimat Glomerular Filtration Rate > 60 BUN/Creatinine Ratio 22 Glucose Level 158 H 70-105 MG/DL Calcium Level 8.6 8.5-10.1 MG/DL Corrected Calcium 8.8 8.5-10.1 MG/DL Total Bilirubin 0.6 0.1-1.0 MG/DL Aspartate Amino Transf (AST/SGOT) 36 H 5-34 U/L Alanine Aminotransferase (ALT/SGPT) 63 H 0-55 U/L Alkaline Phosphatase 103 40-136 U/L Total Protein 6.3 L 6.4-8.2 GM/DL Albumin 3.7 3.2-4.5 GM/DL Urine Color YELLOW Urine Clarity CLEAR Urine pH 5.5 5-9 Urine Specific Shock >=1.030 1.016-1.022 Urine Protein 1+ H NEGATIVE Urine Glucose (UA) NEGATIVE NEGATIVE Urine Ketones TRACE H NEGATIVE Urine Nitrite NEGATIVE NEGATIVE Urine Bilirubin NEGATIVE NEGATIVE Urine Urobilinogen 1.0 < = 1.0 MG/DL Urine Leukocyte Esterase NEGATIVE NEGATIVE Urine RBC (Auto) NEGATIVE NEGATIVE Urine RBC NONE /HPF Urine WBC 0-2 /HPF Urine Squamous Epithelial Cells 2-5 /HPF Urine Crystals NONE /LPF Urine Bacteria FEW H /HPF Urine Casts NONE /LPF Urine Mucus MODERATE H /LPF Urine Culture Indicated NO My Orders Orders - ELYSIA HAYS APRN Cbc With Automated Diff (10/09/19 12:01) Comprehensive Metabolic Panel (10/09/19 12:01) Protime With Inr (10/09/19 12:01) Ct Abd/Pelvis Wo(Kidney Stone) (10/09/19 12:01) Ua Culture If Indicated (10/09/19 12:01) Ns Iv 500 Ml (Sodium Chloride 0.9%) (10/09/19 12:15) Ketorolac Injection (Toradol Injection) (10/09/19 12:15) Fentanyl Injection (Sublimaze Injection (10/09/19 12:15) Medications Given in ED Current Medications Medications Dose Ordered Sig/Sylvie Route Start Time Stop Time Status Last Admin Dose Admin Fentanyl Citrate 50 mcg ONCE ONCE IVP 10/09/19 12:15 10/09/19 12:16 DC 10/09/19 12:11 50 MCG Ketorolac Tromethamine 15 mg ONCE ONCE IVP 10/09/19 12:15 10/09/19 12:16 DC 10/09/19 12:12 15 MG Vital Signs/I&O 10/09/19 11:58 Temp 36.6 Pulse 71 Resp 18 B/P (MAP) 134/82 (99) Pulse Ox 94 O2 Delivery Room Air Diagnostic Imaging Diagonstic Imaging: CT Comments NAME: YOKASTA BALDWIN [facility] REC#: [id number] PT STATUS: REG ER : 1945 PHYSICIAN: ELYSIA HAYS APRN ADMIT DATE: 10/09/19/ER Draft Date of Exam:10/09/19 CT ABD/PELVIS WO(KIDNEY STONE) PROCEDURE: CT urinary tract, rule out kidney stone. TECHNIQUE: Multiple contiguous axial images were obtained through the abdomen and pelvis without the use of intravenous contrast. Auto Exposure Controls were utilized during the CT exam to meet ALARA standards for radiation dose reduction. INDICATION: Left lower quadrant pain. Patient has history of prostate carcinoma. CORRELATION is made with prior CT from 08/07/2018. There is subsegmental atelectasis in the medial aspect of the lingula. Otherwise, the lung bases are clear. The liver does appear to be enlarged at 19.4 cm. There is generalized decreased density throughout the liver consistent with hepatic steatosis. No liver mass is identified. The gallbladder is unremarkable. No biliary ductal dilatation is detected. The pancreas and spleen are unremarkable. No adrenal mass is detected. There are numerous cortical low density lesions throughout both kidneys, similar to prior exam and most consistent with cysts. No calculi are seen. There is no hydronephrosis. Aorta is calcified but non-aneurysmal. No central, retroperitoneal or mesenteric lymphadenopathy is seen. The bowel loops are normal caliber. There is no obstruction. Appendix is visualized in the right lower quadrant and appears unremarkable. No inflammatory changes are seen. In particular, the left lower quadrant is unremarkable. The bladder is decompressed. There is mild prostatic enlargement. Bony structures are nonacute. IMPRESSION: 1. Hepatomegaly and hepatic steatosis. 2. Bilateral renal cystic disease. 1. No acute feature in the abdomen or pelvis is detected. Dictated on workstation # [id number] Dict: 10/09/19 1258 Trans: 10/09/19 1334 [facility] [place] [id number] Interpreted by: LANDY WHALEN MD Electronically signed by: Departure Impression Primary Impression: LLQ pain Disposition: 01 HOME, SELF-CARE Condition: Stable Departure-Patient Inst. Decision time for Depature: 14:40 Referrals: NO,LOCAL PHYSICIAN (PCP) Primary Care Physician INGRIS GUTIÉRREZ (Family) Primary Care Physician Patient Instructions: Severe Abdominal Pain, Adult (DC) Add. Discharge Instructions: 1. Follow-up with your doctor next week 2. Return to ER for any concerns 3. ELYSIA HAYS APRN Oct 09, 2019 12:06
[2019-10-09] MEDS ORDERED: fentaNYL INJECTION 100 MCG/2 ML AMP IVP ONE (12:15)
[2019-10-09] MEDS ORDERED: KETOROLAC 30 MG/ML VIAL IVP ONE (12:15)
[2019-10-09] MEDS ORDERED: NS IV 500 ML 500 ML IV SCH (12:15)
--- NOTE | 2019-10-09 12:23 | NUR ---
CALLED AND GAVE UDATE OF WHAT WE WOULD BE DOING.
[2019-10-09 12:26] LABS: BASOPHILS % (AUTO) 0 % (0-10); EOSINOPHILS # (AUTO) 0.1 10^3/uL (0.0-0.3); EOSINOPHILS % (AUTO) 2 % (0-10); HEMATOCRIT 46 % (40-54); HEMOGLOBIN 15.2 G/DL (13.3-17.7); LYMPHOCYTES # (AUTO) 1.1 X 10^3 (1.0-4.0); LYMPHOCYTES % (AUTO) 16 % (12-44); MEAN CORPUSCULAR HEMOGLOBIN 30 PG (25-34); MEAN CORPUSCULAR HGB CONC 33 G/DL (32-36); MEAN CORPUSCULAR VOLUME 89 FL (80-99); MEAN PLATELET VOLUME 10.1 FL (7.4-10.4); MONOCYTES # (AUTO) 0.5 X 10^3 (0.0-1.0); MONOCYTES % (AUTO) 8 % (0-12); NEUTROPHILS # (AUTO) 5.1 X 10^3 (1.8-7.8); NEUTROPHILS % (AUTO) 74 % (42-75); PLATELET COUNT 214 10^3/uL (130-400); WHITE BLOOD COUNT 6.9 10^3/uL (4.3-11.0)
[2019-10-09 12:39] LABS: PROTHROMBIN TIME PATIENT 13.2 SEC (12.2-14.7)
[2019-10-09 12:46] LABS: ALANINE AMINOTRANSFERASE 63 U/L (0-55); ALBUMIN 3.7 GM/DL (3.2-4.5); ALKALINE PHOSPHATASE 103 U/L (40-136); BILIRUBIN,TOTAL 0.6 MG/DL (0.1-1.0); BUN/CREATININE RATIO 22; CALCIUM 8.6 MG/DL (8.5-10.1); CARBON DIOXIDE 22 MMOL/L (21-32); CHLORIDE 105 MMOL/L (98-107); GFR ESTIMATED > 60; GLUCOSE 158 MG/DL (70-105); POTASSIUM 4.1 MMOL/L (3.6-5.0); SODIUM 141 MMOL/L (135-145); TOTAL PROTEIN 6.3 GM/DL (6.4-8.2)
--- NOTE | 2019-10-09 12:57 | NUR ---
RETURN FROM CT REPORTS PAIN BETTER.
--- NOTE | 2019-10-09 13:35 | Diagnostic Imaging Report ---
PROCEDURE: CT urinary tract, rule out kidney stone. TECHNIQUE: Multiple contiguous axial images were obtained through the abdomen and pelvis without the use of intravenous contrast. Auto Exposure Controls were utilized during the CT exam to meet ALARA standards for radiation dose reduction. INDICATION: Left lower quadrant pain. Patient has history of prostate carcinoma. CORRELATION is made with prior CT from 08/07/2018. There is subsegmental atelectasis in the medial aspect of the lingula. Otherwise, the lung bases are clear. The liver does appear to be enlarged at 19.4 cm. There is generalized decreased density throughout the liver consistent with hepatic steatosis. No liver mass is identified. The gallbladder is unremarkable. No biliary ductal dilatation is detected. The pancreas and spleen are unremarkable. No adrenal mass is detected. There are numerous cortical low density lesions throughout both kidneys, similar to prior exam and most consistent with cysts. No calculi are seen. There is no hydronephrosis. Aorta is calcified but non-aneurysmal. No central, retroperitoneal or mesenteric lymphadenopathy is seen. The bowel loops are normal caliber. There is no obstruction. Appendix is visualized in the right lower quadrant and appears unremarkable. No inflammatory changes are seen. In particular, the left lower quadrant is unremarkable. The bladder is decompressed. There is mild prostatic enlargement. Bony structures are nonacute. IMPRESSION: 1. Hepatomegaly and hepatic steatosis. 2. Bilateral renal cystic disease. 1. No acute feature in the abdomen or pelvis is detected. Dictated by: Dictated on workstation # [id number]
--- NOTE | 2019-10-09 14:01 | NUR ---
Tommy HAYS APRN CALLED AND GAVE UPDATE TO .
[2019-10-09 14:13] LABS: BILIRUBIN,URINE NEGATIVE (NEGATIVE); CLARITY,URINE CLEAR; COLOR,URINE YELLOW; GLUCOSE, URINE (UA) NEGATIVE (NEGATIVE); KETONES,URINE TRACE (NEGATIVE); LEUKOCYTE ESTERASE ,URINE NEGATIVE (NEGATIVE); NITRITE,URINE NEGATIVE (NEGATIVE); PH,URINE 5.5 (5-9); PROTEIN,URINE 1+ (NEGATIVE)
[2019-10-09 14:19] LABS: WBC,URINE 0-2 /HPF
[2019-10-09 14:20] LABS: BACTERIA,URINE FEW /HPF
--- OUTSIDE RECORDS SUMMARY | 2019-10-09 14:33 | XMS REPORT | Continuity of Care Document ---
Author Organization Unknown Address Unknown Phone Unavailable Allergies Active Description Code Type Severity Reaction Onset Reported/Identified Relationship to Patient Clinical Status Yes No Known Drug Allergies [id number] Drug Allergy Unknown N/A 09/26/2009 Yes meperidine [id number] Drug Allerg y Severe Mental Confusio 07/16/2018 Medications There is [...] MD Ot H57.03 MIOSIS 05/02/2018 BEBO CONNER MD, Ot I10 ESSENTIAL (PRIMARY) HYPERTENSION 05/02/2018 BEBO CONNER MD, Ot I25.10 ATHSCL HEART DISEASE OF [place] CORONARY 05/02/2018 BEBO CONNER MD Ot Z79 .4 FUNERAL SERVICE PRACTITIONER/EMBALMER (CURRENT) USE OF INSULIN 05/02/2018 BEBO CONNER MD Ot Z79.82 FUNERAL SERVICE PRACTITIONER/EMBALMER (CURRENT) USE OF ASPIRIN 05/02/2018 BEBO CONNER MD, Ot Z79.899 OTHER [facility] (CURRENT) DRUG THERAPY 05/02/2018 BEBO CONNER MD, Ot Z87.891 PERSONAL HISTORY OF NICOTINE DEPENDENCE 05/02/2018 BEBO CONNER MD Ot Z95 .5 PRESENCE OF CORONARY ANGIOPLASTY IMPLANT 05/06/2018 BEBO CONNER MD, Ot 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 05/06/2018 BEBO CONNER MD, Ot 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 05/06/2018 BEBO CONNER MD, Ot H57.03 MIOSIS 05/06/2018 BEBO CONNER MD, Ot I10 ESSENTIAL (PRIMARY) HYPERTENSION 05/06/2018 BEBO CONNER MD Ot I25.10 ATHSCL HEART DISEASE OF [place] CORONARY 05/06/2018 BEBO CONNER MD, Ot Z79 .4 FUNERAL SERVICE PRACTITIONER/EMBALMER (CURRENT) USE OF INSULIN 05/06/2018 BEBO CONNER MD, Ot Z79.82 [facility] (CURRENT) USE OF ASPIRIN 05/06/2018 BEBO CONNER MD, Ot Z79.899 OTHER FUNERAL SERVICE PRACTITIONER/EMBALMER (CURRENT) DRUG THERAPY 05/06/2018 BEBO CONNER MD, Ot Z87.891 PERSONAL HISTORY OF NICOTINE DEPENDENCE 05/06/2018 BEBO CONNER MD Ot Z95 .5 PRESENCE OF CORONARY ANGIOPLASTY IMPLANT 07/16/2018 BHAKTI CRUZ MD Ot E11.65 TYPE 2 DIABETES MELLITUS WITH HYPERGLYCE 07/16/2018 BHAKTI CRUZ MD Ot E78.00 PURE HYPERCHOLESTEROLEMIA, UNSPECIFIED 07/16/2018 BHAKTI CRUZ MD Ot F17.200 NICOTINE DEPENDENCE, UNSPECIFIED, UNCOMP 07/16/2018 BHAKTI CRUZ MD Ot J44.9 CHRONIC OBSTRUCTIVE PULMONARY DISEASE, U 07/16/2018 BHAKTI CRUZ MD Ot R33.9 RETENTION OF URINE, UNSPECIFIED 07/16/2018 BHAKTI CRUZ MD Ot Z79.4 [facility] (CURRENT) USE OF INSULIN 07/16/2018 BHAKTI CRUZ MD Ot Z79.82 FUNERAL SERVICE PRACTITIONER/EMBALMER (CURRENT) USE OF ASPIRIN 07/16/2018 BHAKTI CRUZ [...] URINE, UNSPECIFIED 07/18/2018 ERLIN WRIGHT Ot Z79.4 [facility] (CURRENT) USE OF INSULIN 07/18/2018 ERLIN WRIGHT Ot Z79.82 FUNERAL SERVICE PRACTITIONER/EMBALMER (CURRENT) USE OF ASPIRIN 07/18/2018 ERLIN WRIGHT [...] TYPE 2 DIABETES MELLITUS WITH UNSPECIFIE 07/19/2018 MARKUS MARTINEZ DO Ot E66.9 OBESITY, UNSPECIFIED 07/19/2018 DOROTEO MARTINEZ DOI Ot 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 07/19/2018 MARKUS MARTINEZ DO Ot I25.10 ATHSCL HEART DISEASE OF [place] CORONARY 07/19/2018 MARKUS MARTINEZ DO Ot K21.9 GASTRO-ESOPHAGEAL REFLUX DISEASE WITHOUT 07/19/2018 MARKUS MARTINEZ DO Ot N39.0 URINARY TRACT INFECTION, SITE NOT SPECIF 07/19/2018 MARKUS MARTINEZ DO Ot R07.9 CHEST PAIN, UNSPECIFIED 07/19/2018 MARKUS MARTINEZ DO Ot R33.9 RETENTION OF URINE, UNSPECIFIED 07/19/2018 MARKUS MARTINEZ DO Ot Z68.30 BODY MASS INDEX (BMI) 30.0-30.9, ADULT 07/19/2018 MARKUS MARTINEZ DO Ot Z79.4 FUNERAL SERVICE PRACTITIONER/EMBALMER (CURRENT) USE OF INSULIN 07/19/2018 MARTINEZ DO MARKUS Ot Z79.82 FUNERAL SERVICE PRACTITIONER/EMBALMER (CURRENT) USE OF ASPIRIN 07/19/2018 MARTINEZ DO MARKUS Ot Z79.89 9 OTHER FUNERAL SERVICE PRACTITIONER/EMBALMER (CURRENT) DRUG THERAPY 07/19/2018 MARTINEZ DO, MARKUS Ot Z85.46 PERSONAL HISTORY OF MALIGNANT NEOPLASM O 07/19/2018 MARTINEZ DO MARKUS Ot Z85.81 9 PRSNL HX OF MALIG NEOPLM OF [facility] SITE LI 07/19/2018 MARTINEZ DO MARKUS Ot Z87.89 1 PERSONAL HISTORY OF NICOTINE DEPENDENCE 07/19/2018 MARTINEZ DO MARKUS Ot Z95.5 PRESENCE OF CORONARY ANGIOPLASTY IMPLANT 07/19/2018 MARTINEZ DO, MARKUS Ot 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 [place] 07/19/2018 MARTINEZ DO, MARKUS Ot E11.8 TYPE 2 DIABETES MELLITUS WITH UNSPECIFIE 07/19/2018 MARTINEZ DO, MARKUS Ot E66.9 OBESITY, UNSPECIFIED 07/19/2018 MARTINEZ DO, MARKUS Ot 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 07/19/2018 MARTINEZ DO, MARKUS Ot I25.10 ATHSCL HEART DISEASE OF [place] CORONARY 07/19/2018 MARTINEZ DO, MARKUS Ot K21.9 GASTRO-ESOPHAGEAL REFLUX DISEASE WITHOUT 07/19/2018 MARTINEZ DO, MARKUS Ot N39.0 URINARY TRACT INFECTION, SITE NOT SPECIF 07/19/2018 MARTINEZ DO MARKUS Ot R07.9 CHEST PAIN, UNSPECIFIED 07/19/2018 MARTINEZ DO, MARKUS Ot R33.9 RETENTION OF URINE, UNSPECIFIED 07/19/2018 MARTINEZ DO MARKUS Ot Z68.30 BODY MASS INDEX (BMI) 30.0-30.9, ADULT 07/19/2018 MARTINEZ DO, MARKUS Ot Z79.4 FUNERAL SERVICE PRACTITIONER/EMBALMER (CURRENT) USE OF INSULIN 07/19/2018 JUAN DO, MARKUS Ot Z79.82 FUNERAL SERVICE PRACTITIONER/EMBALMER (CURRENT) USE OF ASPIRIN 07/19/2018 JUAN DO, MARKUS Ot Z79.89 9 OTHER [facility] (CURRENT) DRUG THERAPY 07/19/2018 MARTINEZ DO, MARKUS Ot Z85.46 PERSONAL HISTORY OF MALIGNANT NEOPLASM O 07/19/2018 MARTINEZ DO, MARKUS Ot Z85.81 9 PRSNL HX OF MALIG NEOPLM OF [facility] SITE LI 07/19/2018 MARKUS MARTINEZ DO Ot Z87.89 1 PERSONAL HISTORY OF NICOTINE DEPENDENCE 07/19/2018 MARKUS [...] UNSPECIFIED 07/22/2018 BHAKTI CRUZ MD Ot Z79.4 FUNERAL SERVICE PRACTITIONER/EMBALMER (CURRENT) USE OF INSULIN 07/22/2018 BHAKTI CRUZ MD Ot Z79.82 [facility] (CURRENT) USE OF ASPIRIN 07/22/2018 BHAKTI CRUZ MD Ot Z85.46 PERSONAL HISTORY OF MALIGNANT NEOPLASM O 07/22/2018 BHAKTI CRUZ MD Ot Z85.828 PERSONAL HISTORY OF OTHER MALIGNANT NEOP 07/22/2018 BHAKTI CRUZ MD Ot Z88.8 ALLERGY STATUS TO OTH DRUG/MEDS/BIOL SUB 07/22/2018 BHAKTI CRUZ MD Ot Z92.21 PERSONAL HISTORY [...] UNSPECIFIED 07/29/2018 BHAKTI CRUZ MD Ot Z79.4 FUNERAL SERVICE PRACTITIONER/EMBALMER (CURRENT) USE OF INSULIN 07/29/2018 BHAKTI CRUZ MD Ot Z79.82 [facility] (CURRENT) USE OF ASPIRIN 07/29/2018 BHAKTI CRUZ MD, Ot Z85.46 PERSONAL HISTORY OF MALIGNANT NEOPLASM O 07/29/2018 BHAKTI CRUZ MD, Ot Z85.828 PERSONAL HISTORY OF OTHER MALIGNANT NEOP 07/29/2018 BHAKTI CRUZ MD, Ot Z88.8 ALLERGY STATUS TO OT DRUG/MEDS/BIOL SUB 07/29/2018 BHAKTI CRUZ MD, Ot Z92.21 PERSONAL HISTORY OF ANTINEOPLASTIC CHEMO 08/09/2018 YOVANY ARVIZU MD, Ot C61 MALIGNANT NEOPLASM OF PROSTATE 08/09/2018 YOVANY ARVIZU MD, Ot E11.9 TYPE 2 DIABETES MELLITUS WITHOUT COMPLIC 08/09/2018 YOVANY ARVIZU MD, Ot E66.9 OBESITY, UNSPECIFIED 08/09/2018 YOVANY ARVIZU MD, Ot E78.0 0 PURE HYPERCHOLESTEROLEMIA, UNSPECIFIED 08/09/2018 YOVANY ARVIZU MD, Ot G47.3 0 SLEEP APNEA, UNSPECIFIED 08/09/2018 YOVANY ARVIZU MD, Ot I10 ESSENTIAL (PRIMARY) HYPERTENSION 08/09/2018 YOVANY ARVIZU MD, Ot I25.1 0 ATHSCL HEART DISEASE OF [place] CORONARY 08/09/2018 YOVANY ARVIZU MD, Ot J44.9 CHRONIC OBSTRUCTIVE PULMONARY DISEASE, U 08/09/2018 YOVANY ARVIZU MD, Ot K21.9 GASTRO-ESOPHAGEAL REFLUX DISEASE WITHOUT 08/09/2018 YOVANY ARVIZU MD, Ot K59.0 9 OTHER CONSTIPATION 08/09/2018 YOVANY ARVIZU MD, Ot K80.2 0 CALCULUS OF GALLBLADDER W/O CHOLECYSTITI 08/09/2018 YOVANY ARVIZU MD, Ot K91.8 9 OTH POSTPROCEDURAL COMPLICATIONS AND DIS 08/09/2018 YOVANY ARVIZU MD, Ot N40.1 BENIGN PROSTATIC HYPERPLASIA WITH LOWER 08/09/2018 YOVANY ARVIZU MD, Ot R11.2 NAUSEA WITH VOMITING, UNSPECIFIED 08/09/2018 YOVANY ARVIZU MD, Ot R33.8 OTHER RETENTION OF URINE 08/09/2018 YOVANY ARVIZU MD, Ot Z68.3 5 BODY MASS INDEX (BMI) 35.0-35.9, ADULT 08/09/2018 YOVANY ARVIZU MD Ot Z79.4 [facility] (CURRENT) USE OF INSULIN 08/09/2018 YOVANY ARVIZU MD Ot Z87.8 91 PERSONAL HISTORY OF NICOTINE DEPENDENCE 08/09/2018 YOVANY ARVIZU MD Ot Z95.5 PRESENCE OF CORONARY ANGIOPLASTY IMPLANT 10/21/2018 ELYSIA HAYS APRN Ot E11 .9 TYPE 2 DIABETES MELLITUS WITHOUT COMPLIC 10/21/2018 ELYSIA HAYS APRN Ot G43.909 MIGRAINE, UNSP, NOT INTRACTABLE, WITHOUT 10/21/2018 ELYSIA HAYS APRN Ot I25 .2 OLD MYOCARDIAL INFARCTION 10/21/2018 ELYSIA HAYS APRN, Ot J44 .9 CHRONIC OBSTRUCTIVE PULMONARY DISEASE, U 10/21/2018 ELYSIA HAYS APRN Ot K21 .9 GASTRO-ESOPHAGEAL REFLUX DISEASE WITHOUT 10/21/2018 EYLSIA HAYS APRN Ot N40 .0 BENIGN PROSTATIC HYPERPLASIA WITHOUT LOW 10/21/2018 ELYSIA HAYS APRN Ot R07 .9 CHEST PAIN, UNSPECIFIED 10/21/2018 ELYSIA HAYS APRN Ot R09 .1 PLEURISY 10/21/2018 ELYSIA HAYS APRN Ot Z79 .4 [facility] (CURRENT) USE OF INSULIN 10/21/2018 ELYSIA HAYS APRN Ot Z85.46 PERSONAL HISTORY OF MALIGNANT NEOPLASM O 10/21/2018 ELYSIA HAYS APRN Ot Z85.828 PERSONAL HISTORY OF OTHER MALIGNANT NEOP 10/21/2018 ELYSIA HAYS APRN Ot Z86.011 PERSONAL HISTORY OF BENIGN NEOPLASM OF T 10/21/2018 ELYSIA HAYS APRN Ot Z87.891 PERSONAL HISTORY OF NICOTINE DEPENDENCE 10/21/2018 ELYSIA HAYS APRN Ot Z88 .5 ALLERGY STATUS TO NARCOTIC AGENT STATUS 10/21/2018 ELYSIA HAYS APRN Ot Z99.81 DEPENDENCE ON SUPPLEMENTAL OXYGEN 10/24/2018 ELYSIA HAYS APRN Ot E11 .9 TYPE 2 DIABETES MELLITUS WITHOUT COMPLIC 10/24/2018 ELYSIA HAYS APRN Ot G43.909 MIGRAINE, UNSP, NOT INTRACTABLE, WITHOUT 10/24/2018 ELYSIA HAYS APRN Ot I25 .2 OLD MYOCARDIAL INFARCTION 10/24/2018 ELYSIA HAYS APRN Ot J44 .9 CHRONIC OBSTRUCTIVE PULMONARY DISEASE, U 10/24/2018 ELYSIA HAYS APRN Ot K21 .9 GASTRO-ESOPHAGEAL REFLUX DISEASE WITHOUT 10/24/2018 ELYSIA HAYS APRN Ot N40 .0 BENIGN PROSTATIC HYPERPLASIA WITHOUT LOW 10/24/2018 ELYSIA HAYS APRN Ot R07 .9 CHEST PAIN, UNSPECIFIED 10/24/2018 ELYSIA HAYS APRN Ot R09 .1 PLEURISY 10/24/2018 ELYSIA HAYS APRN Ot Z79 .4 FUNERAL SERVICE PRACTITIONER/EMBALMER (CURRENT) USE OF INSULIN 10/24/2018 ELYSIA HAYS APRN Ot Z85.46 PERSONAL HISTORY OF MALIGNANT NEOPLASM O 10/24/2018 ELYSIA HAYS APRN Ot Z85.828 PERSONAL HISTORY OF OTHER MALIGNANT NEOP 10/24/2018 ELYSIA HAYS APRN Ot Z86.011 PERSONAL HISTORY OF BENIGN NEOPLASM OF T 10/24/2018 ELYSIA HAYS APRN Ot Z87.891 PERSONAL HISTORY OF NICOTINE DEPENDENCE 10/24/2018 ELYSIA HAYS APRN Ot Z88 .5 ALLERGY STATUS TO NARCOTIC AGENT STATUS 10/24/2018 ELYSIA HAYS APRN Ot Z99.81 DEPENDENCE ON SUPPLEMENTAL OXYGEN Procedures Code Description Performed By Per formed On [id number] EX CISION OF PROSTATE, ENDO 08/06/2018 [id number] RE SECTION OF PROSTATE, ENDO 08/06/2018 Results Test Result Range Capillary blood glucose measurement by g lucometer (mass/volume) - 05/02/18 07:17 Capillary blood glucose measurement by glucometer (mas s/volume) 281 mg/dL 70-110 Whole blood basic metabolic panel - 07/02 07/20 04:10 Serum or plasma sodium measurement (moles/volume) 135 mmol/L 135-145 Serum or plasma potassium measurement (moles/volume) 4.8 mmol/L 3.6-5.0 Serum or plasma chloride measurement (moles/volume) 97 mmol/L 98-107 Carbon dioxide 22 mmol/L 21-32 Serum or plasma anion gap determination (moles/volume) 16 mmol/L 5-14 Serum or plasma urea nitrogen measurement (mass/volume ) 20 mg/dL 7-18 Serum or plasma creatinine measurement (mass/volume) 1.33 mg/dL 0.60-1.30 Serum or plasma urea nitrogen/creatinine mass ratio 15 NRG Serum or plasma creatinine measurement w ith calculation of estimated glomerular filtration rate 53 NRG Serum or plasma glucose measurement (mass/volume) 405 mg/dL 70-105 Serum or plasma calcium measurement (mass/volume) 10.6 mg/dL 8.5-10.1 Complete urinalysis with reflex to cultu re - 07/16/18 05:05 Urine color determination YELLOW NRG Urine clarity determination CLEAR NR G Urine pH measurement by test strip 5 5-9 Specific gravity of urine by test strip 1.010 1.016-1.022 Urine protein assay by test strip, semi-quantitative NEGATIVE NEGATIVE Urine glucose detection by automated test strip 4+ NEGATIVE Erythrocytes detection in urine sediment by light micr oscopy NEGATIVE NEGATIVE Urine ketones detection by automated test strip 1+ NEGATIVE Urine nitrite detection by test strip NEGATIVE NEGATIVE Urine total bilirubin detection by test strip NEGA TIVE NEGATIVE Urine urobilinogen measurement by automated test strip (mass/volume) NORMAL NORMAL Urine leukocyte esterase detection by dipstick NEG ATIVE NEGATIVE Automated urine sediment erythrocyte cou nt by microscopy (number/high power field) NONE NRG Automated urine sediment leukocyte count by microscopy (number/high power field) NONE NRG Bacteria detection in urine sediment by light microsco py TRACE NRG Squamous epithelial cells detection in u rine sediment by light microscopy RARE NRG Crystals detection in urine sediment by light microsco py NONE NRG Casts detection in urine sediment by light microscopy NONE NRG Mucus detection in urine sediment by light microscopy NEGATIVE NRG Complete urinalysis with reflex to culture NO NRG Capillary blood glucose measurement by g lucometer (mass/volume) - 07/16/18 06:42 Capillary blood glucose measurement by glucometer (mas s/volume) 362 mg/dL 70-110 Complete urinalysis with reflex to cultu re - 07/16/18 16:17 Urine color determination YELLOW NRG Urine clarity determination CLEAR NR G Urine pH measurement by test strip 6 5-9 Specific gravity of urine by test strip 1.010 1.016-1.022 Urine protein assay by test strip, semi-quantitative NEGATIVE NEGATIVE Urine glucose detection by automated test strip 4+ NEGATIVE Erythrocytes detection in urine sediment by light micr oscopy NEGATIVE NEGATIVE Urine ketones detection by automated test strip NE GATIVE NEGATIVE Urine nitrite detection by test strip NEGATIVE NEGATIVE Urine total bilirubin detection by test strip NEGA TIVE NEGATIVE Urine urobilinogen measurement by automated test strip (mass/volume) NORMAL NORMAL Urine leukocyte esterase detection by dipstick NEG ATIVE NEGATIVE Automated urine sediment erythrocyte cou nt by microscopy (number/high power field) NONE NRG Automated urine sediment leukocyte count by microscopy (number/high power field) RARE NRG Bacteria detection in urine sediment by light microsco py NEGATIVE NRG Crystals detection in urine sediment by light microsco py NONE NRG Casts detection in urine sediment by light microscopy NONE NRG Mucus detection in urine sediment by light microscopy NEGATIVE NRG Complete urinalysis with reflex to culture NO NRG Complete blood count (CBC) with automate d white blood cell (WBC) differential - 07/17/18 17:40 Blood leukocytes automated count (number/volume) 9.7 10*3/uL 4.3-11.0 Blood erythrocytes automated count (number/volume) 4.91 10*6/uL 4.35-5.85 Venous blood hemoglobin measurement (mass/volume) 14.3 g/dL 13.3-17.7 Blood hematocrit (volume fraction) 42 % 40-54 Automated erythrocyte mean corpuscular volume 86 [ foz_us] 80-99 Automated erythrocyte mean corpuscular h emoglobin (mass per erythrocyte) 29 pg 25-34 Automated erythrocyte mean corpuscular h emoglobin concentration measurement (mass/volume) 34 g/dL 32-36 Automated erythrocyte distribution width ratio 14. 0 % 10.0- 14.5 Automated blood platelet count [...] 10*3 1.0-4.0 Blood monocytes automated count (number/volume) 1. 2 10*3 0.0-1.0 Automated eosinophil count 0.1 10*3/uL 0 .0-0.3 Automated blood basophil count (count/volume) 0.0 10*3/uL 0.0-0.1 Blood lactic acid measurement (moles/vol ume) - 07/17/18 17:40 Blood lactic acid measurement (moles/volume) 1.92 mmol/L 0.50-2.00 PT panel in platelet poor plasma by coag ulation assay - 07/17/18 17:40 Prothrombin time (PT) in platelet poor plasma by coagu lation assay 13.9 s 12.2-14.7 INR in platelet poor plasma or blood by coagulation as say 1.0 0.8-1.4 Activated partial thromboplastin time (a PTT) in platelet poor plasma bycoagulation assay - 07/17/18 17:40 Activated partial thromboplastin time (a PTT) in platelet poor plasma bycoagulation assay 25 s 24-35 Comprehensive metabolic panel - 07/17/18 17:40 Serum or plasma sodium measurement (moles/volume) 138 mmol/L 135-145 Serum or plasma potassium measurement (moles/volume) 3.5 mmol/L 3.6-5.0 Serum or plasma chloride measurement (moles/volume) 100 mmol/L 98-107 Carbon dioxide 25 mmol/L 21-32 Serum or plasma anion gap determination (moles/volume) 13 mmol/L 5-14 Serum or plasma urea nitrogen measurement (mass/volume ) 18 mg/dL 7-18 Serum or plasma creatinine measurement (mass/volume) 1.16 mg/dL 0.60-1.30 Serum or plasma urea nitrogen/creatinine mass ratio 16 NRG Serum or plasma creatinine measurement w ith calculation of estimated glomerular filtration rate > NRG Serum or plasma glucose measurement (mass/volume) 112 mg/dL 70-105 Serum or plasma calcium measurement (mass/volume) 9.2 mg/dL 8.5-10.1 Serum or plasma total bilirubin measurement (mass/volu me) 0.9 mg/dL 0.1-1.0 Serum or plasma alkaline phosphatase kari surement (enzymatic activity/volume) 91 U/L 40-136 Serum or plasma aspartate aminotransfera se measurement (enzymatic activity/volume) 25 U/L 5-34 Serum or plasma alanine aminotransferase measurement (enzymatic activity/volume) 32 U/L 0-55 Serum or plasma protein measurement (mass/volume) 6.2 g/dL 6.4-8.2 Serum or plasma albumin measurement (mass/volume) 3.9 g/dL 3.2-4.5 CALCIUM CORRECTED 9.3 mg/dL 8.5-10.1 Magnesium - 07/17/18 17:40 Magnesium 1.6 mg/dL 1.8-2.4 Serum or plasma troponin i.cardiac measu rement (mass/volume) - 07/17/18 17:40 Serum or plasma troponin i.cardiac measurement (mass/v olume) < ng/mL <0.028 Myoglobin, serum - 07/17/18 17:40 Myoglobin, serum 216.3 ng/mL 10.0-92.0 Serum or plasma C reactive protein measu rement (mass/volume) - 07/17/18 17:40 Serum or plasma C reactive protein measurement (mass/v olume) 3.79 mg/dL 0.00-0.50 Serum or plasma lithium measurement (mol es/volume) - 07/17/18 17:40 BNP level 14.5 pg/mL <100.0 Bacterial blood culture - 07/17/18 17:40 Bacterial blood culture NG NRG Bacterial blood culture - 07/17/18 18:06 Bacterial blood culture NG NRG Complete urinalysis with reflex to cultu re - 07/17/18 18:15 Urine color determination YELLOW NRG Urine clarity determination CLEAR NR G Urine pH measurement by test strip 7 5-9 Specific gravity of urine by test strip 1.005 1.016-1.022 Urine protein assay by test strip, semi-quantitative 3+ NEGATIVE Urine glucose detection by automated test strip NE GATIVE NEGATIVE Erythrocytes detection in urine sediment by light micr oscopy 4+ NEGATIVE Urine ketones detection by automated test strip NE GATIVE NEGATIVE Urine nitrite detection by test strip NEGATIVE NEGATIVE Urine total bilirubin detection by test strip NEGA TIVE NEGATIVE Urine urobilinogen measurement by automated test strip (mass/volume) 1 mg/dL NORMAL Urine leukocyte esterase detection by dipstick 3+ NEGATIVE Automated urine sediment erythrocyte cou nt by microscopy (number/high power field) [HPF] NRG Automated urine sediment leukocyte count by microscopy (number/high power field) [HPF] NRG Bacteria detection in urine sediment by light microsco py TRACE NRG Crystals detection in urine sediment by light microsco py NONE NRG Casts detection in urine sediment by light microscopy NONE NRG Mucus detection in urine sediment by light microscopy NEGATIVE NRG Complete urinalysis with reflex to culture YES NRG Bacterial urine culture - 07/17/18 18:15 Bacterial urine culture NG NRG Serum or plasma creatine kinase measurem ent (enzymatic activity/volume) - 07/17/18 23:49 Serum or plasma creatine kinase measurem ent (enzymatic activity/volume) 174 U/L 30-200 Serum or plasma troponin i.cardiac measu rement (mass/volume) - 07/17/18 23:49 Serum or plasma troponin i.cardiac measurement (mass/v olume) < ng/mL <0.028 Complete blood count (CBC) with automate d white blood cell (WBC) differential - 07/18/18 05:52 Blood leukocytes automated count (number/volume) 7.0 10*3/uL 4.3-11.0 Blood erythrocytes automated count (number/volume) 4.89 10*6/uL 4.35-5.85 Venous blood hemoglobin measurement (mass/volume) 14.0 g/dL 13.3-17.7 Blood hematocrit (volume fraction) 43 % 40-54 Automated erythrocyte mean corpuscular volume 88 [ foz_us] 80-99 Automated erythrocyte mean corpuscular h emoglobin (mass per erythrocyte) 29 pg 25-34 Automated erythrocyte mean corpuscular h emoglobin concentration measurement (mass/volume) 33 g/dL 32-36 Automated erythrocyte distribution width ratio 14. 1 % 10.0- 14.5 Automated blood platelet count [...] 10*3 1.0-4.0 Blood monocytes automated count (number/volume) 0. 8 10*3 0.0-1.0 Automated eosinophil count 0.1 10*3/uL 0 .0-0.3 Automated blood basophil count (count/volume) 0.0 10*3/uL 0.0-0.1 Comprehensive metabolic panel - 07/18/18 05:52 Serum or plasma sodium measurement (moles/volume) 137 mmol/L 135-145 Serum or plasma potassium measurement (moles/volume) 4.4 mmol/L 3.6-5.0 Serum or plasma chloride measurement (moles/volume) 100 mmol/L 98-107 Carbon dioxide 26 mmol/L 21-32 Serum or plasma anion gap determination (moles/volume) 11 mmol/L 5-14 Serum or plasma urea nitrogen measurement (mass/volume ) 18 mg/dL 7-18 Serum or plasma creatinine measurement (mass/volume) 1.22 mg/dL 0.60-1.30 Serum or plasma urea nitrogen/creatinine mass ratio 15 NRG Serum or plasma creatinine measurement w ith calculation of estimated glomerular filtration rate 58 NRG Serum or plasma glucose measurement (mass/volume) 304 mg/dL 70-105 Serum or plasma calcium measurement (mass/volume) 9.1 mg/dL 8.5-10.1 Serum or plasma total bilirubin measurement (mass/volu me) 0.9 mg/dL 0.1-1.0 Serum or plasma alkaline phosphatase kari surement (enzymatic activity/volume) 97 U/L 40-136 Serum or plasma aspartate aminotransfera se measurement (enzymatic activity/volume) 20 U/L 5-34 Serum or plasma alanine aminotransferase measurement (enzymatic activity/volume) 25 U/L 0-55 Serum or plasma protein measurement (mass/volume) 6.0 g/dL 6.4-8.2 Serum or plasma albumin measurement (mass/volume) 3.6 g/dL 3.2-4.5 CALCIUM CORRECTED 9.4 mg/dL 8.5-10.1 Serum or plasma creatine kinase measurem ent (enzymatic activity/volume) - 07/18/18 05:52 Serum or plasma creatine kinase measurem ent (enzymatic activity/volume) 144 U/L 30-200 Serum or plasma troponin i.cardiac measu rement (mass/volume) - 07/18/18 05:52 Serum or plasma troponin i.cardiac measurement (mass/v olume) < ng/mL <0.028 Lipid 1996 panel - 07/18/18 05:52 Serum or plasma triglyceride measurement (mass/volume) 218 mg/dL <150 Serum or plasma cholesterol measurement (mass/volume) 113 mg/dL < 200 Serum or plasma cholesterol in HDL measurement (mass/v olume) 27 mg/dL 40-60 Cholesterol in LDL [mass/volume] in serum or plasma by direct assay 59 mg/dL 1-129 Serum or plasma cholesterol in VLDL measurement (mass/ volume) 44 mg/dL 5-40 Capillary blood glucose measurement by g lucometer (mass/volume) - 07/18/18 21:16 Capillary blood glucose measurement by glucometer (mas s/volume) 395 mg/dL 70-110 Automated blood complete blood count (he mogram) panel - 07/19/18 06:05 Blood leukocytes automated count (number/volume) 8.0 10*3/uL 4.3-11.0 Blood erythrocytes automated count (number/volume) 4.97 10*6/uL 4.35-5.85 Venous blood hemoglobin measurement (mass/volume) 14.5 g/dL 13.3-17.7 Blood hematocrit (volume fraction) 43 % 40-54 Automated erythrocyte mean corpuscular volume 87 [ foz_us] 80-99 Automated erythrocyte mean corpuscular h emoglobin (mass per erythrocyte) 29 pg 25-34 Automated erythrocyte mean corpuscular h emoglobin concentration measurement (mass/volume) 34 g/dL 32-36 Automated erythrocyte distribution width ratio 13. 6 % 10.0- 14.5 Automated blood platelet count (count/volume) 236 10*3/uL 130-400 Automated blood platelet mean volume measurement 10.0 [foz_us] 7.4-10.4 Whole blood basic metabolic panel - 07/02 10/20 06:05 Serum or plasma sodium measurement (moles/volume) 136 mmol/L 135-145 Serum or plasma potassium measurement (moles/volume) 3.9 mmol/L 3.6-5.0 Serum or plasma chloride measurement (moles/volume) 99 mmol/L 98-107 Carbon dioxide 24 mmol/L 21-32 Serum or plasma anion gap determination (moles/volume) 13 mmol/L 5-14 Serum or plasma urea nitrogen measurement (mass/volume ) 17 mg/dL 7-18 Serum or plasma creatinine measurement (mass/volume) 0.98 mg/dL 0.60-1.30 Serum or plasma urea nitrogen/creatinine mass ratio 17 NRG Serum or plasma creatinine measurement w ith calculation of estimated glomerular filtration rate > NRG Serum or plasma glucose measurement (mass/volume) 155 mg/dL 70-105 Serum or plasma calcium measurement (mass/volume) 9.4 mg/dL 8.5-10.1 Magnesium - 07/19/18 06:05 Magnesium 2.3 mg/dL 1.8-2.4 Capillary blood glucose measurement by g lucometer (mass/volume) - 07/19/18 06:22 Capillary blood glucose measurement by glucometer (mas s/volume) 167 mg/dL 70-110 Capillary blood glucose measurement by g lucometer (mass/volume) - 07/19/18 11:24 Capillary blood glucose measurement by glucometer (mas s/volume) 246 mg/dL 70-110 Methicillin resistant Staphylococcus aur eus (MRSA) screening culture - 08/04/18 15:05 Methicillin resistant Staphylococcus aureus (MRSA) scr eening culture NEG NRG Capillary blood glucose measurement by g lucometer (mass/volume) - 08/06/18 07:34 Capillary blood glucose measurement by glucometer (mas s/volume) 209 mg/dL 70-110 Blood type T Indirect antibody screen pa jenn - 08/06/18 07:40 ABO+Rh group BP NRG Transfusion band number [id number] NRG Blood group antibody screen NEGATIVE NR G Capillary blood glucose measurement by g lucometer (mass/volume) - 08/06/18 17:10 Capillary blood glucose measurement by glucometer (mas s/volume) 200 mg/dL 70-110 Capillary blood glucose measurement by g lucometer (mass/volume) - 08/06/18 20:55 Capillary blood glucose measurement by glucometer (mas s/volume) 245 mg/dL 70-110 Capillary blood glucose measurement by g lucometer (mass/volume) - 08/07/18 05:02 Capillary blood glucose measurement by glucometer (mas s/volume) 239 mg/dL 70-110 Capillary blood glucose measurement by g lucometer (mass/volume) - 08/07/18 11:04 Capillary blood glucose measurement by glucometer (mas s/volume) 284 mg/dL 70-110 Capillary blood glucose measurement by g lucometer (mass/volume) - 08/07/18 16:27 Capillary blood glucose measurement by glucometer (mas s/volume) 281 mg/dL 70-110 Capillary blood glucose measurement by g lucometer (mass/volume) - 08/07/18 20:10 Capillary blood glucose measurement by glucometer (mas s/volume) 247 mg/dL 70-110 Capillary blood glucose measurement by g lucometer (mass/volume) - 08/08/18 04:06 Capillary blood glucose measurement by glucometer (mas s/volume) 298 mg/dL 70-110 Complete blood count (CBC) with automate d white blood cell (WBC) differential - 08/08/18 10:12 Blood leukocytes automated count (number/volume) 9.4 10*3/uL 4.3-11.0 Blood erythrocytes automated count (number/volume) 4.44 10*6/uL 4.35-5.85 Venous blood hemoglobin measurement (mass/volume) 12.8 g/dL 13.3-17.7 Blood hematocrit (volume fraction) 40 % 40-54 Automated erythrocyte mean corpuscular volume 89 [ foz_us] 80-99 Automated erythrocyte mean corpuscular h emoglobin (mass per erythrocyte) 29 pg 25-34 Automated erythrocyte mean corpuscular h emoglobin concentration measurement (mass/volume) 32 g/dL 32-36 Automated erythrocyte distribution width ratio 13. 7 % 10.0- 14.5 Automated blood platelet count [...] 10*3 1.0-4.0 Blood monocytes automated count (number/volume) 0. 8 10*3 0.0-1.0 Automated eosinophil count 0.1 10*3/uL 0 .0-0.3 Automated blood basophil count (count/volume) 0.0 10*3/uL 0.0-0.1 Comprehensive metabolic panel - 08/08/18 10:12 Serum or plasma sodium measurement (moles/volume) 136 mmol/L 135-145 Serum or plasma potassium measurement (moles/volume) 4.1 mmol/L 3.6-5.0 Serum or plasma chloride measurement (moles/volume) 99 mmol/L 98-107 Carbon dioxide 28 mmol/L 21-32 Serum or plasma anion gap determination (moles/volume) 9 mmol/L 5-14 Serum or plasma urea nitrogen measurement (mass/volume ) 18 mg/dL 7-18 Serum or plasma creatinine measurement (mass/volume) 1.13 mg/dL 0.60-1.30 Serum or plasma urea nitrogen/creatinine mass ratio 16 NRG Serum or plasma creatinine measurement w ith calculation of estimated glomerular filtration rate > NRG Serum or plasma glucose measurement (mass/volume) 282 mg/dL 70-105 Serum or plasma calcium measurement (mass/volume) 9.1 mg/dL 8.5-10.1 Serum or plasma total bilirubin measurement (mass/volu me) 0.7 mg/dL 0.1-1.0 Serum or plasma alkaline phosphatase kari surement (enzymatic activity/volume) 97 U/L 40-136 Serum or plasma aspartate aminotransfera se measurement (enzymatic activity/volume) 15 U/L 5-34 Serum or plasma alanine aminotransferase measurement (enzymatic activity/volume) 21 U/L 0-55 Serum or plasma protein measurement (mass/volume) 6.2 g/dL 6.4-8.2 Serum or plasma albumin measurement (mass/volume) 3.7 g/dL 3.2-4.5 CALCIUM CORRECTED 9.3 mg/dL 8.5-10.1 Liver function panel (serum or plasma al k phos, alb, total and direct bili, total protein, ALT, AST) - 08/08/18 10:12 Bilirubin direct 0.3 mg/dL 0.0-0.3 Serum or plasma indirect bilirubin measurement (mass/v olume) 0.4 mg/dL NRG Serum or plasma amylase measurement (enz ymatic activity/volume) - 08/08/18 10:12 Serum or plasma amylase measurement (enzymatic activit y/volume) 25 U/L 25-125 Lipase - 08/08/18 10:12 Lipase 22 U/L 8-78 Capillary blood glucose measurement by g lucometer (mass/volume) - 08/08/18 11:15 Capillary blood glucose measurement by glucometer (mas s/volume) 266 mg/dL 70-110 Capillary blood glucose measurement by g lucometer (mass/volume) - 08/08/18 15:57 Capillary blood glucose measurement by glucometer (mas s/volume) 235 mg/dL 70-110 Capillary blood glucose measurement by g lucometer (mass/volume) - 08/08/18 21:02 Capillary blood glucose measurement by glucometer (mas s/volume) 240 mg/dL 70-110 Capillary blood glucose measurement by g lucometer (mass/volume) - 08/09/18 05:19 Capillary blood glucose measurement by glucometer (mas s/volume) 235 mg/dL 70-110 Capillary blood glucose measurement by g lucometer (mass/volume) - 08/09/18 11:07 Capillary blood glucose measurement by glucometer (mas s/volume) 280 mg/dL 70-110 Complete blood count (CBC) with automate d white blood cell (WBC) differential - 10/21/18 11:01 Blood leukocytes automated count (number/volume) 6.0 10*3/uL 4.3-11.0 Blood erythrocytes automated count (number/volume) 5.39 10*6/uL 4.35-5.85 Venous blood hemoglobin measurement (mass/volume) 15.7 g/dL 13.3-17.7 Blood hematocrit (volume fraction) 46 % 40-54 Automated erythrocyte mean corpuscular volume 86 [ foz_us] 80-99 Automated erythrocyte mean corpuscular h emoglobin (mass per erythrocyte) 29 pg 25-34 Automated erythrocyte mean corpuscular h emoglobin concentration measurement (mass/volume) 34 g/dL 32-36 Automated erythrocyte distribution width ratio 13. 9 % 10.0- 14.5 Automated blood platelet count (count/volume) 261 10*3/uL 130-400 Automated blood platelet mean volume measurement 10.2 [foz_us] 7.4-10.4 Automated blood neutrophils/100 leukocytes 69 % 42-75 Automated blood lymphocytes/100 leukocytes 21 % 12-44 Blood monocytes/100 leukocytes 8 % 0-12 Automated blood eosinophils/100 leukocytes 1 % 0-10 Automated blood basophils/100 leukocytes 1 % 0-10 Blood neutrophils automated count (number/volume) 4.2 10*3 1.8-7.8 Blood lymphocytes automated count (number/volume) 1.3 10*3 1.0-4.0 Blood monocytes automated count (number/volume) 0. 5 10*3 0.0-1.0 Automated eosinophil count 0.1 10*3/uL 0 .0-0.3 Automated blood basophil count (count/volume) 0.0 10*3/uL 0.0-0.1 PT panel in platelet poor plasma by coag ulation assay - 10/21/18 11:01 Prothrombin time (PT) in platelet poor plasma by coagu lation assay 12.7 s 12.2-14.7 INR in platelet poor plasma or blood by coagulation as say 0.9 0.8-1.4 Activated partial thromboplastin time (a PTT) in platelet poor plasma bycoagulation assay - 10/21/18 11:01 Activated partial thromboplastin time (a PTT) in platelet poor plasma bycoagulation assay 26 s 24-35 Comprehensive metabolic panel - 10/21/18 11:01 Serum or plasma sodium measurement (moles/volume) 136 mmol/L 135-145 Serum or plasma potassium measurement (moles/volume) 4.5 mmol/L 3.6-5.0 Serum or plasma chloride measurement (moles/volume) 101 mmol/L 98-107 Carbon dioxide 24 mmol/L 21-32 Serum or plasma anion gap determination (moles/volume) 11 mmol/L 5-14 Serum or plasma urea nitrogen measurement (mass/volume ) 19 mg/dL 7-18 Serum or plasma creatinine measurement (mass/volume) 1.28 mg/dL 0.60-1.30 Serum or plasma urea nitrogen/creatinine mass ratio 15 NRG Serum or plasma creatinine measurement w ith calculation of estimated glomerular filtration rate 55 NRG Serum or plasma glucose measurement (mass/volume) 326 mg/dL 70-105 Serum or plasma calcium measurement (mass/volume) 9.8 mg/dL 8.5-10.1 Serum or plasma total bilirubin measurement (mass/volu me) 0.6 mg/dL 0.1-1.0 Serum or plasma alkaline phosphatase kari surement (enzymatic activity/volume) 155 U/L 40-136 Serum or plasma aspartate aminotransfera se measurement (enzymatic activity/volume) 23 U/L 5-34 Serum or plasma alanine aminotransferase measurement (enzymatic activity/volume) 31 U/L 0-55 Serum or plasma protein measurement (mass/volume) 7.2 g/dL 6.4-8.2 Serum or plasma albumin measurement (mass/volume) 4.0 g/dL 3.2-4.5 CALCIUM CORRECTED 9.8 mg/dL 8.5-10.1 Magnesium - 10/21/18 11:01 Magnesium 1.7 mg/dL 1.6-2.4 Serum or plasma troponin i.cardiac measu rement (mass/volume) - 10/21/18 11:01 Serum or plasma troponin i.cardiac measurement (mass/v olume) < ng/mL <0.028 Myoglobin, serum - 10/21/18 11:01 Myoglobin, serum 77.7 ng/mL 10.0-92.0 Lipase - 10/21/18 11:01 Lipase 154 U/L 8-78 Serum or plasma lithium measurement (mol es/volume) - 10/21/18 11:01 BNP PT < 10.0 <100.0 Serum or plasma troponin i.cardiac measu rement (mass/volume) - 10/21/18 13:05 Serum or plasma troponin i.cardiac measurement (mass/v olume) < ng/mL <0.028 Complete blood count (CBC) with automate d white blood cell (WBC) differential - 10/09/19 12:20 Blood leukocytes automated count (number/volume) 6.9 10*3/uL 4.3-11.0 Blood erythrocytes automated count (number/volume) 5.16 10*6/uL 4.35-5.85 Venous blood hemoglobin measurement (mass/volume) 15.2 g/dL 13.3-17.7 Blood hematocrit (volume fraction) 46 % 40-54 Automated erythrocyte mean corpuscular volume 89 [ foz_us] 80-99 Automated erythrocyte mean corpuscular h emoglobin (mass per erythrocyte) 30 pg 25-34 Automated erythrocyte mean corpuscular h emoglobin concentration measurement (mass/volume) 33 g/dL 32-36 Automated erythrocyte distribution width ratio 14. 0 % 10.0- 14.5 Automated blood platelet count (count/volume) 214 10*3/uL 130-400 Automated blood platelet mean volume measurement 10.1 [foz_us] 7.4-10.4 Automated blood neutrophils/100 leukocytes 74 % 42-75 Automated blood lymphocytes/100 leukocytes 16 % 12-44 Blood monocytes/100 leukocytes 8 % 0-12 Automated blood eosinophils/100 leukocytes 2 % 0-10 Automated blood basophils/100 leukocytes 0 % 0-10 Blood neutrophils automated count (number/volume) 5.1 10*3 1.8-7.8 Blood lymphocytes automated count (number/volume) 1.1 10*3 1.0-4.0 Blood monocytes automated count (number/volume) 0. 5 10*3 0.0-1.0 Automated eosinophil count 0.1 10*3/uL 0 .0-0.3 Automated blood basophil count (count/volume) 0.0 10*3/uL 0.0-0.1 PT panel in platelet poor plasma by coag ulation assay - 10/09/19 12:20 Prothrombin time (PT) in platelet poor plasma by coagu lation assay 13.2 s 12.2-14.7 INR in platelet poor plasma or blood by coagulation as say 1.0 0.8-1.4 Comprehensive metabolic panel - 10/09/19 12:20 Serum or plasma sodium measurement (moles/volume) 141 mmol/L 135-145 Serum or plasma potassium measurement (moles/volume) 4.1 mmol/L 3.6-5.0 Serum or plasma chloride measurement (moles/volume) 105 mmol/L 98-107 Carbon dioxide 22 mmol/L 21-32 Serum or plasma anion gap determination (moles/volume) 14 mmol/L 5-14 Serum or plasma urea nitrogen measurement (mass/volume ) 22 mg/dL 7-18 Serum or plasma creatinine measurement (mass/volume) 1.00 mg/dL 0.60-1.30 Serum or plasma urea nitrogen/creatinine mass ratio 22 NRG Serum or plasma creatinine measurement w ith calculation of estimated glomerular filtration rate > NRG Serum or plasma glucose measurement (mass/volume) 158 mg/dL 70-105 Serum or plasma calcium measurement (mass/volume) 8.6 mg/dL 8.5-10.1 Serum or plasma total bilirubin measurement (mass/volu me) 0.6 mg/dL 0.1-1.0 Serum or plasma alkaline phosphatase kari surement (enzymatic activity/volume) 103 U/L 40-136 Serum or plasma aspartate aminotransfera se measurement (enzymatic activity/volume) 36 U/L 5-34 Serum or plasma alanine aminotransferase measurement (enzymatic activity/volume) 63 U/L 0-55 Serum or plasma protein measurement (mass/volume) 6.3 g/dL 6.4-8.2 Serum or plasma albumin measurement (mass/volume) 3.7 g/dL 3.2-4.5 CALCIUM CORRECTED 8.8 mg/dL 8.5-10.1 Encounters ACCT No. Visit Date/Time Discharge Status Pt. Type Provider Facility Loc./Unit Complaint [id number] 10/21/2018 10:53:00 13:52:00 DIS Emergency ELYSIA HAYS APRN [facility] ER CHEST PAIN;NAUSEA [id number] 08/08/2018 09:00:00 13:20:00 DIS Inpatient LUH RAMOS, YOVANY Valiente [facility] 4TH POST OP UNCONTROLLED NAUSEA/VOMITTING AND NEW [id number] 08/04/2018 14:22:00 15:15:00 DIS Outpatient YOVANY ARVIZU MD [facility] PREOP PROSTATE CANCER [id number] 07/17/2018 18:37:00 13:20:00 DIS Inpatient MARKUS MARTINEZ DO, [facility] 4TH CHEST PAIN;URINARY RETE NTION [id number] 07/16/2018 15:17:00 18:00:00 DIS Outpatient ERLIN WRIGHT [facility] ER KIDNEY PROBLEMS [id number] 07/16/2018 04:01:00 07:01:00 DIS Emergency BHAKTI CRUZ MD [facility] ER PROBLEMS WITH U RINATION [id number] 05/02/2018 07:05:00 08:27:00 DIS Outpatient BEBO CONNER MD [facility] SDC LEFT EYE CATARACT [id number] 04/30/2018 05:39:00 12:13:00 DIS Outpatient BEBO CONNER MD [facility] PREOP LEFT CATARACT [id number] 08/04/2012 07:58:00 23:59:59 CLS Outpatient [id number] 10/09/2019 12:32:00 Document Registration
[2019-10-09] MEDS ORDERED: HYDR-3870 PO (14:41)
--- NOTE | 2019-10-09 14:42 | NUR ---
Tommy HAYS APRN CALLED BACK TO INFORM HER THAT HE IS GOING HOME . AND GIVE RESULTS OF TEST.
[2019-10-09 14:51] VITALS: BP 119/65
--- NOTE | 2019-10-09 14:51 | NUR ---
WILL LEAVE PATIENT IN RM TILL FAMILY ARRIVES
== END 2019-10-09 15:24 | disposition home or self-care (01) ==
LOC: EDUNIT# 11:58 → ER 11:59
DX: R10.32 Left lower quadrant pain (principal); E11.9 Type 2 diabetes mellitus without complications; I25.2 Old myocardial infarction; N40.0 Benign prostatic hyperplasia without lower urinary tract symptoms; K21.9 Gastro-esophageal reflux disease without esophagitis; Z85.828 Personal history of other malignant neoplasm of skin; Z85.46 Personal history of malignant neoplasm of prostate; Z88.5 Allergy status to narcotic agent; Z79.4 Long term (current) use of insulin; Z87.891 Personal history of nicotine dependence; Z95.5 Presence of coronary angioplasty implant and graft
CPT/HCPCS: 36415; 74176; 80053; 81000; 85025; 85610

== ENCOUNTER 2020-09-25 21:23 | Emergency (ER) | payer MEDICARE, MEDICAID ==
[~2020-09-25] VITALS: Ht 182.8 cm; Wt 109.0 kg
[~2020-09-25 21:23] MED LIST changes: +HYDR-3870 PO; -PANT40TA3 PO; +PANT40TA52 PO
[2020-09-25 22:09] LABS: BILIRUBIN,URINE NEGATIVE (NEGATIVE); CLARITY,URINE CLOUDY; COLOR,URINE YELLOW; GLUCOSE, URINE (UA) 3+ (NEGATIVE); KETONES,URINE TRACE (NEGATIVE); LEUKOCYTE ESTERASE ,URINE 1+ (NEGATIVE); NITRITE,URINE POSITIVE (NEGATIVE); PH,URINE 5.5 (5-9); PROTEIN,URINE 2+ (NEGATIVE)
[2020-09-25 22:14] LABS: BASOPHILS # (AUTO) 0.1 10^3/uL (0.0-0.1); BASOPHILS % (AUTO) 1 % (0-10); EOSINOPHILS # (AUTO) 0.1 10^3/uL (0.0-0.3); EOSINOPHILS % (AUTO) 2 % (0-10); HEMATOCRIT 44 % (40-54); HEMOGLOBIN 14.5 g/dL (13.3-17.7); LYMPHOCYTES # (AUTO) 1.3 10^3/uL (1.0-4.0); LYMPHOCYTES % (AUTO) 20 % (12-44); MEAN CORPUSCULAR HEMOGLOBIN 30 pg (25-34); MEAN CORPUSCULAR HGB CONC 33 g/dL (32-36); MEAN CORPUSCULAR VOLUME 91 fL (80-99); MONOCYTES # (AUTO) 0.6 10^3/uL (0.0-1.0); MONOCYTES % (AUTO) 9 % (0-12); NEUTROPHILS # (AUTO) 4.3 10^3/uL (1.8-7.8); NEUTROPHILS % (AUTO) 67 % (42-75); PLATELET COUNT 227 10^3/uL (130-400); WHITE BLOOD COUNT 6.4 10^3/uL (4.3-11.0)
[2020-09-25 22:16] LABS: BACTERIA,URINE MODERATE /HPF; RBC,URINE 25-50 /HPF; WBC,URINE >100 /HPF
[2020-09-25 22:25] LABS: ALBUMIN 4.1 GM/DL (3.2-4.5); POTASSIUM 3.9 MMOL/L (3.6-5.0)
[2020-09-25 22:26] LABS: CALCIUM 9.1 MG/DL (8.5-10.1)
[2020-09-25 22:27] LABS: TOTAL PROTEIN 6.8 GM/DL (6.4-8.2)
[2020-09-25 22:29] LABS: BILIRUBIN,TOTAL 0.7 MG/DL (0.1-1.0)
[2020-09-25 22:31] LABS: CREATININE SERUM 1.24 MG/DL (0.60-1.30)
[2020-09-25] MEDS ORDERED: TAMSULOSIN 0.4 MG (FLOMAX) CAP PO SCH (22:45)
[2020-09-25] MEDS ORDERED: cefTRIAXone 1,000 MG in WATER (STERILE) FOR INJECTION 10 ML IV ONE (22:45)
--- NOTE | 2020-09-25 22:59 | ED GU-Male ---
General Chief Complaint: - Urinary Stated Complaint: KIDNEY PAIN Nursing Triage Note: pt reports that he began having slow urination for the past 5 days. reports he has sharp pain with urination today et is unable to empty bladder. Allergies and Home Medications Allergies Coded Allergies: meperidine (Verified Allergy, Severe, Mental Confusion, 07/16/18) Home Medications Acetaminophen 500 Mg Tablet, 1,000 MG PO DAILY PRN for PAIN-MILD, (Reported) Alprazolam 0.5 Mg Tablet, 0.5 MG PO TID PRN for ANXIETY, (Reported) Benazepril HCl 5 Mg Tablet, 5 MG PO DAILY, (Reported) Bethanechol Chloride 25 Mg Tablet, 50 MG PO ACHS, (Reported) take 2 (25mg) tabs Escitalopram Oxalate 10 Mg Tablet, 10 MG PO HS, (Reported) Hydrocodone/Acetaminophen 1 Each Tablet, 1 EACH PO Q4-6HR PRN for PAIN-MODERATE Prescribed by: ELYSIA HAYS on 10/09/19 1442 Insulin NPH Hum/Reg Insulin Hm 100 Unit/1 Ml Vial, 80 UNITS SC BID, (Reported) Neomycin Tillman/Bacitrac Zn/Poly 28.3 Gm Oint...g., TP TID, (Reported) APPLY TO LIPS Pantoprazole Sodium 40 Mg Tablet.dr, 40 MG PO DAILY, (Reported) Potassium Chloride 10 Meq Tablet.er, 10 MEQ PO DAILY, (Reported) Simvastatin 20 Mg Tablet, 10 MG PO HS, (Reported) TAKES 1/2 (20MG) TABLETS Tamsulosin HCl 0.4 Mg Cap, 0.4 MG PO BID, (Reported) Past Vsqnsmp-Ooejxg-Frpdlc Hx Patient Social History Tobacco Use?: No Tobacco type used: Cigarettes Smoking Status: Former Smoker Substance use?: No Pt feels they are or have been: No Immunizations Up To Date Tetanus Booster (TDap): Unknown PED Vaccines UTD: No First/Initial COVID19 Vaccinat: 05/22 Second COVID19 Vaccination Tony: 06/22 Seasonal Allergies Seasonal Allergies: No Past Medical History Surgery/Hospitalization HX: denies Surgeries: Yes (7 stents) Coronary Stent Respiratory: Yes (oxygen at hs) COPD Currently Using CPAP: No Currently Using BIPAP: No Cardiac: Yes Heart Attack Neurological: Yes Brain Tumor, Headaches /Migraines, Vertigo Reproductive Disorders: No Genitourinary: Yes Benign Prostatic Hyperpl, Prostate Problems Gastrointestinal: Yes Gastroesophageal Reflux Musculoskeletal: Yes Arthritis, Fractures Endocrine: Yes Diabetes, Insulin dep HEENT: No (cataract removed) Cancer: Yes (lip) Prostate, Skin Did You Recieve Any Treatments: Yes What Type of Treatment Did You: Radiation, Surgical Intervention Psychosocial: No Integumentary: No Blood Disorders: No Adverse Reaction/Blood Tranf: No Family Medical History Patient reports no known family medical history. No Pertinent Family Hx Physical Exam Vital Signs Vital Signs - First Documented 09/25/20 21:38 Pulse 65 Resp 16 B/P (MAP) 143/85 (104) Pulse Ox 96 O2 Delivery Room Air Capillary Refill : Less Than 3 Seconds Height, Weight, BMI Height: 6'0" Weight: 245lbs. 0.0oz. 111.905122xy; 32.00 BMI Method:Stated Progress/Results/Core Measures Suspected Sepsis SIRS Temperature: Pulse: 65 Respiratory Rate: 16 Laboratory Tests 09/25/20 22:05: White Blood Count 6.4 Blood Pressure 143 /85 Mean: 104 Laboratory Tests 09/25/20 22:05: Creatinine 1.24, Platelet Count 227, Total Bilirubin 0.7 Results/Orders Lab Results Laboratory Tests Test 09/25/20 22:04 09/25/20 22:05 Range/Units Urine Color YELLOW Urine Clarity CLOUDY Urine pH 5.5 5-9 Urine Specific [place] >=1.030 1.016-1.022 Urine Protein 2+ H NEGATIVE Urine Glucose (UA) 3+ H NEGATIVE Urine Ketones TRACE H NEGATIVE Urine Nitrite POSITIVE H NEGATIVE Urine Bilirubin NEGATIVE NEGATIVE Urine Urobilinogen 1.0 < = 1.0 MG/DL Urine Leukocyte Esterase 1+ H NEGATIVE Urine RBC (Auto) 3+ H NEGATIVE Urine RBC 25-50 H /HPF Urine WBC >100 H /HPF Urine Squamous Epithelial Cells NONE /HPF Urine Renal Epithelial Cells NONE /HPF Urine Crystals NONE /LPF Urine Bacteria MODERATE H /HPF Urine Casts NONE /LPF Urine Mucus NEGATIVE /LPF Urine Culture Indicated YES White Blood Count 6.4 4.3-11.0 10^3/uL Red Blood Count 4.82 4.30-5.52 10^6/uL Hemoglobin 14.5 13.3-17.7 g/dL Hematocrit 44 40-54 % Mean Corpuscular Volume 91 80-99 fL Mean Corpuscular Hemoglobin 30 25-34 pg Mean Corpuscular Hemoglobin Concent 33 32-36 g/dL Red Cell Distribution Width 13.2 10.0-14.5 % Platelet Count 227 130-400 10^3/uL Mean Platelet Volume 10.0 9.0-12.2 fL Immature Granulocyte % (Auto) 1 % Neutrophils (%) (Auto) 67 42-75 % Lymphocytes (%) (Auto) 20 12-44 % Monocytes (%) (Auto) 9 0-12 % Eosinophils (%) (Auto) 2 0-10 % Basophils (%) (Auto) 1 0-10 % Neutrophils # (Auto) 4.3 1.8-7.8 10^3/uL Lymphocytes # (Auto) 1.3 1.0-4.0 10^3/uL Monocytes # (Auto) 0.6 0.0-1.0 10^3/uL Eosinophils # (Auto) 0.1 0.0-0.3 10^3/uL Basophils # (Auto) 0.1 0.0-0.1 10^3/uL Immature Granulocyte # (Auto) 0.1 0.0-0.1 10^3/uL Sodium Level 142 135-145 MMOL/L Potassium Level 3.9 3.6-5.0 MMOL/L Chloride Level 104 98-107 MMOL/L Carbon Dioxide Level 24 21-32 MMOL/L Anion Gap 14 5-14 MMOL/L Blood Urea Nitrogen 23 H 7-18 MG/DL Creatinine 1.24 0.60-1.30 MG/DL Estimat Glomerular Filtration Rate 57 BUN/Creatinine Ratio 19 Glucose Level 235 H 70-105 MG/DL Calcium Level 9.1 8.5-10.1 MG/DL Corrected Calcium 9.0 8.5-10.1 MG/DL Total Bilirubin 0.7 0.1-1.0 MG/DL Aspartate Amino Transf (AST/SGOT) 26 5-34 U/L Alanine Aminotransferase (ALT/SGPT) 44 0-55 U/L Alkaline Phosphatase 124 40-136 U/L Total Protein 6.8 6.4-8.2 GM/DL Albumin 4.1 3.2-4.5 GM/DL Amylase Level 30 25-125 U/L Lipase 41 8-78 U/L My Orders Orders - PAYAL BARDALES DO Ed Iv/Invasive Line Start (09/25/20 21:47) Amylase (09/25/20 21:47) Cbc With Automated Diff (09/25/20 21:47) Comprehensive Metabolic Panel (09/25/20 21:47) Lipase (09/25/20 21:47) Ua Culture If Indicated (09/25/20 21:47) Bladder Scan (09/25/20 21:57) Ct Abd/Pelvis Wo(Kidney Stone) (09/25/20 22:02) Urine Culture (09/25/20 22:04) Ceftriaxone (Rocephin) (09/25/20 22:45) Tamsulosin Capsule (Flomax Capsule) (09/25/20 22:45) Medications Given in ED Current Medications Medications Dose Ordered Sig/Sylvie Route Start Time Stop Time Status Last Admin Dose Admin Ceftriaxone Sodium 1000 mg/ Sterile Water 10 ml @ 200 mls/hr ONCE ONCE IV 09/25/20 22:45 09/25/20 22:47 DC 09/25/20 22:55 200 MLS/HR Vital Signs/I&O 09/25/20 21:38 Pulse 65 Resp 16 B/P (MAP) 143/85 (104) Pulse Ox 96 O2 Delivery Room Air Capillary Refill : Less Than 3 Seconds Blood Pressure Mean: 104 Departure Impression Primary Impression: Urinary tract infection Disposition: HOME, SELF-CARE Condition: Stable Departure-Patient Inst. Referrals: NO,LOCAL PHYSICIAN (PCP) Primary Care Physician INGRIS GUTIÉRREZ (Family) Primary Care Physician YOVANY ARVIZU MD Patient Instructions: Urinary Tract Infection, Adult (DC) Add. Discharge Instructions: CONTINUE YOUR REGULAR MEDICATIONS PRESCRIBED FOLLOW UP WITH DR. ARVIZU THIS WEEK FOR FURTHER CARE All discharge instructions reviewed with patient and/or family. Voiced understanding. Scripts Phenazopyridine HCl (Pyridium) 200 Mg Tablet 1 TAB PO TID, #15 TAB Prov: ANALY BARDALESA K DO 09/25/20 Cefdinir (Cefdinir) 300 Mg Capsule 300 MG PO BID, #20 CAP Prov: JEFFY,PAYAL K DO 09/25/20 JEFFY,PAYAL K DO Sep 25, 2020 22:59
[2020-09-25] MEDS ORDERED: CEFD300C3 PO (23:52)
[2020-09-25] MEDS ORDERED: PHEN-640 PO (23:52)
[2020-09-26] MEDS ORDERED: PHENAZOPYRIDINE 100 MG (PYRIDIUM) TABLET PO ONE
[2020-09-26] MEDS ORDERED: PHENAZOPYRIDINE 100 MG (PYRIDIUM) TABLET ONE (00:06)
[2020-09-26 00:13] VITALS: BP 138/82
--- NOTE | 2020-09-26 07:26 | Diagnostic Imaging Report ---
CT ABD/PELVIS WO(KIDNEY STONE) TECHNIQUE: Unenhanced CT imaging of the abdomen and pelvis was performed. 2-D reformats are created and submitted for interpretation. Automatic exposure controls were utilized to optimize patient dose. INDICATION: Flank pain COMPARISON: 10/09/2019 FINDINGS: Evaluation of the abdominal viscera is mildly limited without contrast. Lower chest: The lung bases are clear. No pericardial or pleural effusion. Peritoneum: No free intraperitoneal air or fluid. Liver and biliary system: Persistent diffuse hypoattenuation liver indicative of hepatic steatosis. No focal hepatic lesion is appreciated by noncontrast imaging. Possible cholelithiasis. No biliary duct dilatation. Spleen and Pancreas: Spleen is normal. Unenhanced pancreas is grossly normal. Adrenals: Normal. tract: No renal or ureteral calculi. No obstructive uropathy. Bilateral partially exophytic cystic lesion in both kidneys are stable and likely due to complicated and simple cysts. The urinary bladder is decompressed, limiting assessment. Fiducial markers are present within the prostate. GI tract: Stomach is decompressed. No bowel obstruction. No pericolonic inflammatory changes. Normal appendix. Vasculature and Lymph nodes: Normal caliber aorta has moderate atherosclerotic plaquing. No abdominal or pelvic lymphadenopathy. Musculoskeletal: No concerning osseous lesion. Multilevel degenerative disc disease in the lumbar spine is unchanged. IMPRESSION: 1. No urinary tract calculi or obstructive uropathy. 2. Bilateral simple and mildly complicated renal cysts are stable since examination 1 year prior. 3. Persistent diffuse hepatic steatosis. 4. Findings are in agreement with the preliminary report. Dictated by: Dictated on workstation # [id number]
== END 2020-09-26 00:16 | disposition home or self-care (01) ==
LOC: EDUNIT# 21:23 → ER 21:25
DX: N39.0 Urinary tract infection, site not specified (principal); J44.9 Chronic obstructive pulmonary disease, unspecified; I25.2 Old myocardial infarction; E11.9 Type 2 diabetes mellitus without complications; N40.0 Benign prostatic hyperplasia without lower urinary tract symptoms; K21.9 Gastro-esophageal reflux disease without esophagitis; Z87.891 Personal history of nicotine dependence; Z79.4 Long term (current) use of insulin; Z79.899 Other long term (current) drug therapy
CPT/HCPCS: 36415; 74176; 80053; 81000; 82150; 83690; 85025; 87077; 87088; 87186

== ENCOUNTER 2021-03-20 16:23 | Emergency (ER) | payer MEDICARE, MEDICAID ==
[~2021-03-20] VITALS: Ht 183 cm; Wt 136.1 kg
[~2021-03-20 16:23] MED LIST changes: -BENA5TAB3 PO; +BENA5TAB36 PO; +CEFD300C3 PO; +PHEN-640 PO; -POTA10TA36 PO; +POTA10TA37 PO
--- OUTSIDE RECORDS SUMMARY | 2021-03-20 16:31 | XMS REPORT | Clinical Summary ---
Author Author [facility] Organization [facility] Address Unknown Phone Unavailable Care Team Providers Care Facility Worker Name Role Phone PCP Unavailable Source Comments [facility] (Labor [facility] Delivery) documents [facility] Allergies Not on File Medications Please verify current medications with patient. Not on file Active Problems Not on file Social History Date Tobacco Use Types Packs/Day Years Used Never Assessed Sex Assigned at Date Recorded Not on file Last Filed Vital Signs Not on file Plan of Treatment Health Maintenance Due Date Last Done Comments CT Colonography 1945 Colonoscopy 1945 Colorectal Cancer 1945 Screening DNA-based stool test 1945 (Cologuard) Lipid Panel 1945 Sigmoidoscopy 1945 gFOBT or FIT 1945 COVID-19 Vaccine (1) 1957 Pneumococcal Vaccine: 65+ 2010 Years (1 of 1 - PPSV23) Influenza Vaccine (#1) 2020 HPV Vaccine Aged Out No longer eligible based on patient's age to complete this topic Hepatitis A Vaccine Aged Out No longer eligible based on patient's age to complete this topic Hepatitis B Vaccine Aged Out No longer eligible based on patient's age to complete this topic Hib Vaccine Aged Out No longer eligible based on patient's age to complete this topic IPV Vaccine Aged Out No longer eligible based on patient's age to complete this topic Meningococcal Vaccine Aged Out No longer eligib le based on patient's age to (MCV4) complete this topic Rotavirus Vaccine Aged Out No longer eligible based on patient's age to complete this topic Results Not on filefrom Last 3 Months
--- OUTSIDE RECORDS SUMMARY | 2021-03-20 16:31 | XMS REPORT | Clinical Summary ---
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 If you d o not see the information that you expected, contact Release of Information in [facility] [employer] Information Management department at [phone] for further assistan ce in locating additional records.[facility] Allergies Not on File Medications Not on file Active Problems Not on file Social History Date Tobacco Use Types Packs/Day Years Used Never Assessed Sex Assigned at Date Recorded Not on file Last Filed Vital Signs Not on file Plan of Treatment Health Maintenance Due Date Last Done Comments DTAP/TDAP VACCINES (1 - 05/13/1963 Tdap) HEPATITIS C SCREENING 05/13/1963 PHYSICAL (COMPREHENSIVE) 05/13/1963 EXAM COLORECTAL CANCER 05/13/1995 SCREENING SHINGLES RECOMBINANT 05/13/1995 VACCINE (1 of 2) PNEUMONIA (PPSV23) 2010 VACCINE (1 of 1 - PPSV23) INFLUENZA VACCINE 10/02/2020 Results Not on filefrom Last 3 Months Care Teams Start Date End Date Archery Equipment Repairer Relationship Specialty 08/13/11 Unverified, Unverified, PCP - General
[2021-03-20 16:45] LABS: BASOPHILS # (AUTO) 0.1 10^3/uL (0.0-0.1); BASOPHILS % (AUTO) 1 % (0-10); EOSINOPHILS # (AUTO) 0.1 10^3/uL (0.0-0.3); EOSINOPHILS % (AUTO) 2 % (0-10); HEMATOCRIT 45 % (40-54); HEMOGLOBIN 14.7 g/dL (13.3-17.7); LYMPHOCYTES % (AUTO) 15 % (12-44); MEAN CORPUSCULAR HEMOGLOBIN 30 pg (25-34); MEAN CORPUSCULAR HGB CONC 33 g/dL (32-36); MEAN CORPUSCULAR VOLUME 90 fL (80-99); MONOCYTES # (AUTO) 0.6 10^3/uL (0.0-1.0); MONOCYTES % (AUTO) 8 % (0-12); NEUTROPHILS % (AUTO) 74 % (42-75); PLATELET COUNT 245 10^3/uL (130-400); WHITE BLOOD COUNT 6.8 10^3/uL (4.3-11.0)
--- NOTE | 2021-03-20 16:48 | Diagnostic Imaging Report ---
PROCEDURE: CT head and CT cervical spine without contrast. TECHNIQUE: Multiple contiguous axial images were obtained through the brain and cervical spine without the use of intravenous contrast. Sagittal and coronal reformations through the cervical spine were then performed. Auto Exposure Controls were utilized during the CT exam to meet ALARA standards for radiation dose reduction. INDICATION: Trauma with head and neck injury and pain. FINDINGS: CT HEAD: Comparison is made to 05/03/2011. The ventricles and sulci are within range as expected for patient's age. No definite cranial hemorrhage is identified. The hyperdense dural based mass in the anterior left middle cranial fossa now measures 3.3 x 2.7 x 2.7 cm representing an increase when compared to the previous study and there is now low density within the left temporal white matter which may represent vasogenic edema. This does result in effacement of the left temporal sulci as well. The calvarium is intact. There is extensive atherosclerotic calcification throughout the visualized cerebral arteries. IMPRESSION: Overall increase in size of the presumed left anterior temporal region meningioma with increasing associated vasogenic edema within the left temporal lobe. If at all warranted, this could be reassessed with MRI for further characterization. Otherwise, no definite acute abnormality is identified. CT CERVICAL SPINE: Multiple contiguous axial CT images of the cervical spine were obtained with sagittal and coronal reformatted images produced. FINDINGS: The cervical curvature and alignment are within normal limits. The vertebral body heights and disc spaces are maintained without evidence of fracture or subluxation. There is no paraspinous hematoma. There is mild diffuse degenerative disc and facet disease with extensive atherosclerotic disease involving the carotid arteries. IMPRESSION: No CT evidence of acute cervical spinal abnormality. Degenerative-type findings are present with extensive carotid atherosclerotic disease. Consideration could be given to carotid Doppler ultrasound for further assessment of carotid stenosis. Dictated by: Dictated on workstation # [id number]
[2021-03-20 16:52] LABS: ALBUMIN 3.6 GM/DL (3.2-4.5); CHLORIDE 100 MMOL/L (98-107); POTASSIUM 3.8 MMOL/L (3.6-5.0); SODIUM 136 MMOL/L (135-145)
[2021-03-20 16:53] LABS: CALCIUM 9.1 MG/DL (8.5-10.1)
[2021-03-20 16:55] LABS: GLUCOSE 186 MG/DL (70-105); TOTAL PROTEIN 6.7 GM/DL (6.4-8.2)
[2021-03-20 16:56] LABS: BILIRUBIN,TOTAL 0.5 MG/DL (0.1-1.0); CARBON DIOXIDE 25 MMOL/L (21-32)
[2021-03-20 16:58] LABS: ALKALINE PHOSPHATASE 103 U/L (40-136); CREATININE SERUM 1.37 MG/DL (0.60-1.30); GFR ESTIMATED 54
[2021-03-20 16:59] LABS: BUN/CREATININE RATIO 13
[2021-03-20 17:00] LABS: FIBRIN DEGRADATION PRODUCTS 0.54 UG/ML (0.00-0.49)
[2021-03-20 17:01] LABS: ALANINE AMINOTRANSFERASE 32 U/L (0-55)
--- NOTE | 2021-03-20 17:15 | Diagnostic Imaging Report ---
INDICATION: Chest pain. FINDINGS: There is air trapping and COPD. No focal consolidation, failure pattern, effusion or pneumothorax. IMPRESSION: No acute appearing abnormality. Dictated by: Dictated on workstation # [id number]
[2021-03-20] MEDS ORDERED: IOHEXOL 350 MG/ML 150 ML (OMNIPAQUE 350) VIAL IV ONE (17:45)
[2021-03-20] MEDS ORDERED: NS 100 ML (IVPB) BAG IV ONE (17:45)
[2021-03-20] MEDS ORDERED: HOLD METFORMIN - RECEIVED CONTRAST 20 ML VIAL IV SCH (17:45)
--- NOTE | 2021-03-20 18:22 | Diagnostic Imaging Report ---
PROCEDURE: CT angiography of the head and CT angiography of the neck with and without contrast. TECHNIQUE: Contiguous noncontrast images were obtained from the skull base through the vertex. After intravenous contrast administration, helical CT angiography of the neck was performed. Source data was reformatted into 3D MIP projections. Delayed post contrast acquisition was also obtained. Auto Exposure Controls were utilized during the CT exam to meet ALARA standards for radiation dose reduction. INDICATION: "Stroke like symptoms." No lateralizing or useful history. COMPARISON: This patient had a head CT and cervical spine CT earlier this same date. That exam was ordered for workup of trauma. Today's exam is correlated with remote brain MRI performed in 2013. FINDINGS: The delayed postcontrast enhanced head CT shows some heterogeneity shows homogenous enhancement of the left anterior middle cranial fossa peripherally calcified extra-axial mass consistent with a meningioma. Its only slightly increased in size from a study of 10 years ago. No resultant shift or herniation. There is chronic adjacent cortical thickening and periosteal reaction associated with the left sphenoid wing along the margins of this chronic mass. The lesion in the axial plane measures 3.5 x 2.8 cm. No other area of abnormal enhancement on the delayed postcontrast enhanced images. There is enhancement of the major dural venous sinuses. CT ANGIOGRAM NECK: Atherosclerotic disease of the aortic arch was without stenosis. There is moderate 50% stenosis at the takeoff of the left subclavian. The bilateral cervical vertebral arteries are patent. The left dominant, the right somewhat small but not pathologic and nonfocal. There is extensive mixed calcified and soft plaques in the distal common carotids extending through the carotid bifurcations and into the proximal ICAs. The left proximal cervical internal carotid is narrowed by about 60% the right stenosed by greater than 80%. The mid to distal cervical internal carotids are tortuous but non-stenosed. CT ANGIOGRAM HEAD: The intracranial ICAs are patent with non-stenosing calcified plaques at their cavernous segments. The A1 segments and the paired anterior cerebral arteries unremarkable. The middle cerebral arterial segments and their primary branches patent. No thrombus or large vessel occlusion. Anterior temporal branch of the left middle cerebral artery is displaced by the extra-axial meningioma. The intra-dural vertebral arteries are patent. There is stenosis of the distal basilar of about 60%. There is patency of the bilateral PCOMs with the [employer] F[employer]ER segments bilaterally patent. No thrombus or large vessel occlusion. No intracranial aneurysm or vascular malformation. IMPRESSION: 1. Left anterior middle cranial fossa extra-axial peripherally calcified meningioma mildly increased in size from brain MRI of 10 years ago and is associated with mild perilesional vasogenic edema. 2. CT angiogram neck: Right greater than left carotid atherosclerosis and stenosis. No segmental occlusion. 3. CT angiogram head: No intracranial thrombus, aneurysm or vascular malformation. No acute intracerebral arterial pathology. Dictated by: Dictated on workstation # [id number]
--- NOTE | 2021-03-20 19:46 | ED Neurological Problem ---
General Chief Complaint: Neuro-Stroke Like Symptoms Stated Complaint: STROKE Nursing Triage Note: PT TO RM 7 [facility]IA [facility]. EMS REPORTS THEY WERE CALLED FOR VOMITING AND SLURRED SPEECH. UPON ARRIVAL TO ED PT IS EXPERIENCING SLURRED SPEECH, LEFT SIDED FACIAL DROOP, AND LEFT SIDED WEAKNESS. PT FAMILY REPORTS HE FELL AT HOME AND POSS HIT HEAD AFTER SYMPTOMS STARTED AT APPROX 1400. PT ALERT AT THIS TIME, DENIES PAIN. EMS INITIATED 20G LEFT FA IV AND 20G RT AC IV EN ROUTE. Source: patient, EMS, old records Exam Limitations: no limitations (BHAKTI CRUZ MD) History of Present Illness Date Seen by Provider: Mar 20, 2021 Time Seen by Provider: 16:26 Initial Comments This 75-year-old gentleman presents to the emergency room via EMS as a stroke activation from the field. He reportedly was sitting in his chair after taking trash out when he developed chest pain, intense diaphoresis, and lightheadedness. When he attempted to stand up he had a syncopal episode and fell forward. He reportedly had a couple of these episodes over the past few months. It is unknown what his blood sugar was at the time. He ate some peanut butter after the event which she is accustomed to doing with hypoglycemic episodes. Fingerstick blood sugar for EMS was normal. EMS reported that he had some unilateral facial droop and weakness. This was not observed on my exam. EMS does comment that he seems more alert and his speech is more brisk than it was in route. Patient was taken directly to CT from the ambulance as part of the stroke activation. (BHAKTI CRUZ MD) Allergies and Home Medications Allergies Coded Allergies: meperidine (Verified Allergy, Severe, Mental Confusion, 07/16/18) Patient Home Medication List Home Medication List Reviewed: Yes (JOSE MURPHY MD) Acetaminophen (Tylenol Extra Strength) 500 Mg Tablet, 1,000 MG PO DAILY PRN for PAIN-MILD, (Reported) Entered as Reported by: LISANDRO COFFMAN on 07/18/18 0857 Alprazolam (Xanax) 0.5 Mg Tablet, 0.5 MG PO TID PRN for ANXIETY, (Reported) Entered as Reported by: FILOMENA BAZZI on 04/30/18 1209 Benazepril HCl (Benazepril HCl) 5 Mg Tablet, 5 MG PO DAILY, (Reported) Entered as Reported by: FILOMENA BAZZI on 04/30/18 1209 Bethanechol Chloride (Urecholine) 25 Mg Tablet, 50 MG PO ACHS, (Reported) Entered as Reported by: FILOMENA BAZZI on 08/04/18 1449 Cefdinir (Cefdinir) 300 Mg Capsule, 300 MG PO BID Prescribed by: PAYAL BARDALES on 09/25/20 235 Escitalopram Oxalate (Lexapro) 10 Mg Tablet, 10 MG PO HS, (Reported) Entered as Reported by: FILOMENA BAZZI on 04/30/18 1209 Hydrocodone/Acetaminophen (Lorcet 5-325 mg Tablet) 1 Each Tablet, 1 EACH PO Q4- 6HR PRN for PAIN-MODERATE Prescribed by: ELYSIA HAYS on 10/09/19 1442 Insulin NPH Hum/Reg Insulin Hm (Humulin 70-30 Vial) 100 Unit/1 Ml Vial, 80 UNITS SC BID, (Reported) Entered as Reported by: LISANDRO COFFMAN on 07/18/18 0857 Neomycin Tillman/Bacitrac Zn/Poly (Neosporin Ointment) 28.3 Gm Oint...g., TP TID, (Reported) Entered as Reported by: LISANDRO COFFMAN on 07/18/18 0857 Pantoprazole Sodium (Pantoprazole Sodium) 40 Mg Tablet.dr, 40 MG PO DAILY, (Reported) Entered as Reported by: FILOMENA BAZZI on 04/30/18 1209 Phenazopyridine HCl (Pyridium) 200 Mg Tablet, 1 TAB PO TID Prescribed by: PAYAL BARDALES on 09/25/20 235 Potassium Chloride (Potassium Chloride) 10 Meq Tablet.er, 10 MEQ PO DAILY, (Reported) Entered as Reported by: LISANDRO COFFMAN on 07/18/18 0846 Simvastatin (Simvastatin) 20 Mg Tablet, 10 MG PO HS, (Reported) Entered as Reported by: LISANDRO COFFMAN on 07/18/18 0857 Tamsulosin HCl (Flomax) 0.4 Mg Cap, 0.4 MG PO BID, (Reported) Entered as Reported by: FILOMENA BAZZI on 08/04/18 1449 Review of Systems Review of Systems Constitutional: see HPI Respiratory: cough Cardiovascular: chest pain Gastrointestinal: no symptoms reported Genitourinary: other (chronic hesitancy, history of Prostate CA) Musculoskeletal: joint pain (left knee) Skin: other (abrasion left knee) Psychiatric/Neurological: Other (trouble speaking) (JOSE MURPHY MD) All Other Systems Reviewed Negative Unless Noted: Yes (JOSE MURPHY MD) Past Gcttqra-Aptoxr-Dqmfre Hx Patient Social History Tobacco Use?: No Use of E-Cig and/or Vaping dev: No Substance use?: No Alcohol Use?: No (BHAKTI CRUZ MD) Immunizations Up To Date Tetanus Booster (TDap): Unknown PED Vaccines UTD: No Influenza Vaccine Up-to-Date: Yes; Up-to-Date First/Initial COVID19 Vaccinat: 03/31/20 Second COVID19 Vaccination Tony: 04/28/20 Third COVID19 Vaccination Date: 02/21/21 COVID19 Vaccine 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[employer]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 (BHAKTI CRUZ MD) Seasonal Allergies Seasonal Allergies: No (BHAKTI CRUZ MD) Past Medical History Surgery/Hospitalization HX: CARDAIC CATHS WITH STENTS X 7, TURP FOR PROSTATE CANCER, CATARACT SURGERY Surgeries: Yes (7 stents) Coronary Stent, Eye Surgery, Transurethral Resection Respiratory: Yes (oxygen at hs) COPD Currently Using CPAP: No Currently Using BIPAP: No Cardiac: Yes (STENTS X 7) Coronary Artery Disease, Heart Attack, High Cholesterol, Hypertension Neurological: Yes Brain Tumor, Headaches /Migraines, Vertigo Reproductive Disorders: No Genitourinary: Yes (PROSTATE CANCER; CHRONIC INCONTINENCE; HX RETENTINON) Prostate Problems Gastrointestinal: Yes Gastroesophageal Reflux Musculoskeletal: Yes Arthritis, Fractures Endocrine: Yes Diabetes, Insulin dep HEENT: Yes Cataract Cancer: Yes (lip) Prostate, Skin Did You Recieve Any Treatments: Yes What Type of Treatment Did You: Radiation, Surgical Intervention Psychosocial: No Integumentary: No Blood Disorders: No Adverse Reaction/Blood Tranf: No (BHAKTI CRUZ MD) Family Medical History Patient reports no known family medical history. No Pertinent Family Hx (BHAKTI CRUZ MD) Physical Exam Vital Signs Vital Signs - First Documented 03/20/21 16:23 Temp 35.6 Pulse 70 Resp 22 B/P (MAP) 120/68 (85) Pulse Ox 97 O2 Delivery Room Air (JOSE MURPHY MD) Vital Signs Capillary Refill : Less Than 3 Seconds (BHAKTI CRUZ MD) Height, Weight, BMI Height: 6'0" Weight: 245lbs. 0.0oz. 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, no motor/sensory deficits, alert, normal mood/affect, oriented x 3 Crainal Nerves: PERRL Coordination/Gait: normal finger to nose Motor/Sensory: no motor deficit, no sensory deficit, no pronator drift Skin: normal color, warm/dry, other (slight abrasion left anterior knee) (JOSE MURPHY MD) Stroke NIH Stroke Scale Assessment Level of Consciousness: 0=Alert (0), Level of Consciousness-Questions: 2=Answer neither question (2), LOC Commands: 0=Performs both tasks (0), Visual Rowell: 0=No visual loss (0), Facial Movement (Facial Paresis): 1=M inor paralysis (1), Motor Function-Arms Right: 0=No drift (0), Motor Function-Arms Left: 0=No drift (0), Motor Function-Legs Right: 0=No drift (0), Motor Function-Legs Left: 0=No drift (0), Limb Ataxia: 0=Absent (0), Sensory: 0=Normal:no loss (0), Best Language: 1=Mild to moderat aphasia (1), Dysarthria: 1=Mild to moderate loss (1), Extinction & Inattention: 0=No abnormality (0), Total: Progress/Results/Core Measures Results/Orders Lab Results Laboratory Tests Test 03/20/21 16:37 03/20/21 16:38 03/20/21 21:38 03/20/21 21:49 Range/Units Glucometer 196 H 249 H 70-110 MG/DL White Blood Count 6.8 4.3-11.0 10^3/uL Red Blood Count 4.97 4.30-5.52 10^6/uL Hemoglobin 14.7 13.3-17.7 g/dL Hematocrit 45 40-54 % Mean Corpuscular Volume 90 80-99 fL Mean Corpuscular Hemoglobin 30 25-34 pg Mean Corpuscular Hemoglobin Concent 33 32-36 g/dL Red Cell Distribution Width 12.8 10.0-14.5 % Platelet Count 245 130-400 10^3/uL Mean Platelet Volume 10.0 9.0-12.2 fL Immature Granulocyte % (Auto) 1 % Neutrophils (%) (Auto) 74 42-75 % Lymphocytes (%) (Auto) 15 12-44 % Monocytes (%) (Auto) 8 0-12 % Eosinophils (%) (Auto) 2 0-10 % Basophils (%) (Auto) 1 0-10 % Neutrophils # (Auto) 5.0 1.8-7.8 10^3/uL Lymphocytes # (Auto) 1.0 1.0-4.0 10^3/uL Monocytes # (Auto) 0.6 0.0-1.0 10^3/uL Eosinophils # (Auto) 0.1 0.0-0.3 10^3/uL Basophils # (Auto) 0.1 0.0-0.1 10^3/uL Immature Granulocyte # (Auto) 0.1 0.0-0.1 10^3/uL Prothrombin Time 14.0 12.2-14.7 SEC INR Comment 1.0 0.8-1.4 Activated Partial Thromboplast Time 25 24-35 SEC D-Dimer 0.54 H 0.00-0.49 UG/ML Sodium Level 136 135-145 MMOL/L Potassium Level 3.8 3.6-5.0 MMOL/L Chloride Level 100 98-107 MMOL/L Carbon Dioxide Level 25 21-32 MMOL/L Anion Gap 11 5-14 MMOL/L Blood Urea Nitrogen 18 7-18 MG/DL Creatinine 1.37 H 0.60-1.30 MG/DL Estimat Glomerular Filtration Rate 54 BUN/Creatinine Ratio 13 Glucose Level 186 H 70-105 MG/DL Calcium Level 9.1 8.5-10.1 MG/DL Corrected Calcium 9.4 8.5-10.1 MG/DL Total Bilirubin 0.5 0.1-1.0 MG/DL Aspartate Amino Transf (AST/SGOT) 31 5-34 U/L Alanine Aminotransferase (ALT/SGPT) 32 0-55 U/L Alkaline Phosphatase 103 40-136 U/L Troponin I < 0.028 <0.028 NG/ML Total Protein 6.7 6.4-8.2 GM/DL Albumin 3.6 3.2-4.5 GM/DL Influenza Type A (RT-PCR) Not Detected Not Detecte Influenza Type B (RT-PCR) Not Detected Not Detecte SARS-CoV-2 RNA (RT-PCR) Not Detected Not Detecte (JOSE MURPHY MD) My Orders Orders - JOSE MURPHY MD Ekg Tracing (03/20/21 20:34) Covid 19 Inhouse Test (03/20/21 21:27) Influenza A And B By Pcr (03/20/21 21:27) Isolation Central Supply Req (03/20/21 21:27) (JOSE MURPHY MD) Medications Given in ED Current Medications Medications Dose Ordered Sig/Sylvie Route Start Time Stop Time Status Last Admin Dose Admin Iohexol 150 ml ONCE ONCE IV 03/20/21 17:45 03/20/21 17:46 DC 03/20/21 17:52 75 ML Sodium Chloride 100 ml ONCE ONCE IV 03/20/21 17:45 03/20/21 17:46 DC 03/20/21 17:53 80 ML (JOSE MURPHY MD) Vital Signs/I&O 03/20/21 03/20/21 16:23 23:48 Temp 35.6 36.2 Pulse 70 72 Resp 22 18 B/P (MAP) 120/68 (85) 109/75 Pulse Ox 97 96 O2 Delivery Room Air Room Air (JOSE MURPHY MD) Blood Pressure Mean: 85 FSBG Bedside Testing Finger Stick Blood Glucose: 196 Blood Glucose Action Taken: DR. CRUZ NOTIFIED (BHAKTI CRUZ MD) Progress Progress Note : Time: 19:45 Progress Note Brief exam was performed in the CT room along with the history and HPI. Stroke activation orders were entered. CT scan was reviewed and CT angiogram was then ordered. Care was then transitioned to Dr. Murphy after shift change. Patient did note some neck discomfort on initial exam. We did attempt to fit a c-collar but were unable to based on his body habitus. Manual C-spine precautions were observed. (BHAKTI CRUZ MD) Progress Note : Time: 22:54 Progress Note Discussion initially with Dr. Avitia about admission as well as discussion with Dr. Martinez for chest pain. Subsequently I talked to stroke neurology, Dr. Meeks. She recommended transfer to and she would be accepting doctor. They did want a COVID swab done prior to acceptance. This was done and negative. Multiple revisits with the patient to talk to him about transfer. He is agreeable. I also spoke with his Annette, phone number [phone]. She would like to be updated once he is there and for plan of care and decision making. She also advised me that he has a daughter Rylie that she would like involved in his care, phone number [phone]. Patient continues to be asymptomatic both of chest pain, aphasia, weakness. No focal deficits are observed by myself or any of the nursing staff. His NIH at the time of my evaluation at shift change was 0. To recap his history, he had taken out 2 large 30 gallon trash bags to his burn barrels, he states this is about a half a block from his house. When he came back he had chest pain and profuse diaphoresis. He felt a little nauseous. He developed chest pain and a mild headache. He stood up from his chair and had a syncopal event. Reportedly when he woke up he was having difficulty speaking to his could not get his words out. EMS reports that he had a left-sided facial droop. I was not present for his initial presentation however the initial physician, Dr. Garcia stated that no aphasia was present on his evaluation nor facial droop was noted. Patient was noted to be in a normal sinus rhythm with frequent PVCs. Stable vital signs. Patient states he has not had a cardiac evaluation in at least 2 years. He states that the chest pain was midsternal and nonradiating. He tells me that he has had at least 2 or 3 other episodes of syncope related to chest pain over the last couple of months. His also told me that he has been much more fatigued as of late sleeping "all the time". He is a former smoker, quit 7 years ago. No recent illnesses. COVID vaccinated and boosted. No sick contacts. He rarely leaves his house. On discussion with stroke neurology they recommended transfer. Patient is agreeable. (JOSE MURPHY MD) Initial ECG Impression Date: Mar 20, 2021 Initial ECG Impression Time: 16:31 Initial ECG Rate: 71 Comment Sinus rhythm with ventricular trigeminy. No ST elevation or depression. No abnormal intervals or axis deviation. (BHAKTI CRUZ MD) Diagnostic Imaging Diagonstic Imaging: CT Comments [facility], [place] NAME: YOKASTA BALDWIN [employer] REC#: [id number] PT STATUS: REG ER : 1945 PHYSICIAN: BHAKTI CRUZ MD ADMIT DATE: 03/20/21/ER Signed Date of Exam:03/20/21 CT ANGIO HEAD/NECK PROCEDURE: CT angiography of the head and CT angiography of the neck with and without contrast. TECHNIQUE: Contiguous noncontrast images were obtained from the skull base through the vertex. After intravenous contrast administration, helical CT angiography of the neck was performed. Source data was reformatted into 3D MIP projections. Delayed post contrast acquisition was also obtained. Auto Exposure Controls were utilized during the CT exam to meet ALARA standards for radiation dose reduction. INDICATION: "Stroke like symptoms." No lateralizing or useful history. COMPARISON: This patient had a head CT and cervical spine CT earlier this same date. That exam was ordered for workup of trauma. Today's exam is correlated with remote brain MRI performed in 2013. FINDINGS: The delayed postcontrast enhanced head CT shows some heterogeneity shows homogenous enhancement of the left anterior middle cranial fossa peripherally calcified extra-axial mass consistent with a meningioma. Its only slightly increased in size from a study of 10 years ago. No resultant shift or herniation. There is chronic adjacent cortical thickening and periosteal reaction associated with the left sphenoid wing along the margins of this chronic mass. The lesion in the axial plane measures 3.5 x 2.8 cm. No other area of abnormal enhancement on the delayed postcontrast enhanced images. There is enhancement of the major dural venous sinuses. CT ANGIOGRAM NECK: Atherosclerotic disease of the aortic arch was without stenosis. There is moderate 50% stenosis at the takeoff of the left subclavian. The bilateral cervical vertebral arteries are patent. The left dominant, the right somewhat small but not pathologic and nonfocal. There is extensive mixed calcified and soft plaques in the distal common carotids extending through the carotid bifurcations and into the proximal ICAs. The left proximal cervical internal carotid is narrowed by about 60% the right stenosed by greater than 80%. The mid to distal cervical internal carotids are tortuous but non-stenosed. CT ANGIOGRAM HEAD: The intracranial ICAs are patent with non-stenosing calcified plaques at their cavernous segments. The A1 segments and the paired anterior cerebral arteries unremarkable. The middle cerebral arterial segments and their primary branches patent. No thrombus or large vessel occlusion. Anterior temporal branch of the left middle cerebral artery is displaced by the extra-axial meningioma. The intra-dural vertebral arteries are patent. There is stenosis of the distal basilar of about 60%. There is patency of the bilateral PCOMs with the HOME OFFICE CLAIM SPECIALIST segments bilaterally patent. No thrombus or large vessel occlusion. No intracranial aneurysm or vascular malformation. IMPRESSION: 1. Left anterior middle cranial fossa extra-axial peripherally calcified meningioma mildly increased in size from brain MRI of 10 years ago and is associated with mild perilesional vasogenic edema. 2. CT angiogram neck: Right greater than left carotid atherosclerosis and stenosis. No segmental occlusion. 3. CT angiogram head: No intracranial thrombus, aneurysm or vascular malformation. No acute intracerebral arterial pathology. Dictated by: Dictated on workstation # [id number] Dict: 03/20/21 1800 Trans: 03/20/211847 [facility] [id number] Interpreted by: IRINEO TORREZ Electronically signed by: IRINEO TORREZ 03/20/211847 [facility] [place], [place] NAME: YOKASTA BALDWIN [employer] REC#: [id number] PT STATUS: REG ER : 1945 PHYSICIAN: BHAKTI CRUZ MD ADMIT DATE: 03/20/21/ER Draft Date of Exam:03/20/21 CT HEAD/CERVICAL SPINE WO PROCEDURE: CT head and CT cervical spine without contrast. TECHNIQUE: Multiple contiguous axial images were obtained through the brain and cervical spine without the use of intravenous contrast. Sagittal and coronal reformations through the cervical spine were then performed. Auto Exposure Controls were utilized during the CT exam to meet ALARA standards for radiation dose reduction. INDICATION: Trauma with head and neck injury and pain. FINDINGS: CT HEAD: Comparison is made to 05/03/2011. The ventricles and sulci are within range as expected for patient's age. No definite cranial hemorrhage is identified. The hyperdense dural based mass in the anterior left middle cranial fossa now measures 3.3 x 2.7 x 2.7 cm representing an increase when compared to the previous study and there is now low density within the left temporal white matter which may represent vasogenic edema. This does result in effacement of the left temporal sulci as well. The calvarium is intact. There is extensive atherosclerotic calcification throughout the visualized cerebral arteries. IMPRESSION: Overall increase in size of the presumed left anterior temporal region meningioma with increasing associated vasogenic edema within the left temporal lobe. If at all warranted, this could be reassessed with MRI for further characterization. Otherwise, no definite acute abnormality is identified. CT CERVICAL SPINE: Multiple contiguous axial CT images of the cervical spine were obtained with sagittal and coronal reformatted images produced. FINDINGS: The cervical curvature and alignment are within normal limits. The vertebral body heights and disc spaces are maintained without evidence of fracture or subluxation. There is no paraspinous hematoma. There is mild diffuse degenerative disc and facet disease with extensive atherosclerotic disease involving the carotid arteries. IMPRESSION: No CT evidence of acute cervical spinal abnormality. Degenerative-type findings are present with extensive carotid atherosclerotic disease. Consideration could be given to carotid Doppler ultrasound for further assessment of carotid stenosis. Dictated on workstation # [id number] Dict: 03/20/21 1640 Trans: 03/20/21 1648 JM [id number] Interpreted by: IRINEO HULL MD Electronically signed by: [facility], [place] NAME: YOKASTA BALDWIN [employer] REC#: [id number] PT STATUS: REG ER : 1945 PHYSICIAN: BHAKTI CRUZ MD ADMIT DATE: 03/20/21/ER Signed Date of Exam:03/20/21 CHEST 1 VIEW, AP/PA ONLY INDICATION: Chest pain. FINDINGS: There is air trapping and COPD. No focal consolidation, failure pattern, effusion or pneumothorax. IMPRESSION: No acute appearing abnormality. Dictated by: Dictated on workstation # [id number] Dict: 03/20/21 1711 Trans: 03/20/21 172 [facility] [id number] Interpreted by: IRINEO TORREZ Electronically signed by: IRINEO TORREZ 03/20/211723 (JOSE MURPHY MD) Departure Impression Primary Impression: TIA (transient ischemic attack) Additional Impressions: Syncope Qualified Codes: R55 - Syncope and collapse Meningioma Carotid artery stenosis, unilateral Diabetes Qualified Codes: E11.69 - Type 2 diabetes mellitus with other specified complication; Z79.4 - longterm (current) use of insulin CAD (coronary artery disease) Qualified Codes: I25.119 - Atherosclerotic heart disease of rampart coronary artery with unspecified angina pectoris Chest pain Qualified Codes: R07.9 - Chest pain, unspecified Disposition: XFER SHT-TRM HOSP Condition: Stable Transfer Transfer Reason: Exceeds level of care Time Spoke to Accepting Phy: 21:14 Transfer Progress Notes DIscussed with Dr Meeks, Neurology Transfer Facility: [facility] Method of Transfer: EMS (JOSE MURPHY MD) Departure-Patient Inst. Referrals: NO,LOCAL PHYSICIAN (PCP) Primary Care Physician INGRIS GUTIÉRREZ PA (Family) Primary Care Physician BHAKTI CRUZ MD Mar 20, 2021 19:46 JOSE MURPHY MD Mar 20, 2021 22:58
[2021-03-20 23:48] VITALS: BP 109/75
== END 2021-03-20 23:48 | disposition short-term general hospital (02) ==
LOC: EDUNIT# 16:23 → ER 16:26
DX: R55 Syncope and collapse (principal); I25.10 Atherosclerotic heart disease of native coronary artery without angina pectoris; E11.9 Type 2 diabetes mellitus without complications; I65.29 Occlusion and stenosis of unspecified carotid artery; D32.9 Benign neoplasm of meninges, unspecified; I10 Essential (primary) hypertension; J44.9 Chronic obstructive pulmonary disease, unspecified; I25.2 Old myocardial infarction; K21.9 Gastro-esophageal reflux disease without esophagitis; E78.00 Pure hypercholesterolemia, unspecified; Z20.822 Contact with and (suspected) exposure to COVID-19; Z95.5 Presence of coronary angioplasty implant and graft; Z79.4 Long term (current) use of insulin; Z79.899 Other long term (current) drug therapy
CPT/HCPCS: 36415; 70450; 70496; 70498; 71045; 72125; 80053; 82947; 84484; 85025; 85379; 85610; 85730; 87636; 93005; 93041

== ENCOUNTER 2021-05-03 20:24 | Emergency (ER) | payer MEDICARE, MEDICAID ==
[~2021-05-03] VITALS: Ht 183 cm; Wt 104.3 kg
[2021-05-03 20:40] LABS: BASOPHILS # (AUTO) 0.1 10^3/uL (0.0-0.1); BASOPHILS % (AUTO) 1 % (0-10); EOSINOPHILS # (AUTO) 0.1 10^3/uL (0.0-0.3); EOSINOPHILS % (AUTO) 1 % (0-10); HEMATOCRIT 46 % (40-54); HEMOGLOBIN 15.3 g/dL (13.3-17.7); LYMPHOCYTES % (AUTO) 13 % (12-44); MEAN CORPUSCULAR HEMOGLOBIN 30 pg (25-34); MEAN CORPUSCULAR HGB CONC 34 g/dL (32-36); MEAN CORPUSCULAR VOLUME 88 fL (80-99); MEAN PLATELET VOLUME 10.3 fL (9.0-12.2); MONOCYTES # (AUTO) 0.6 10^3/uL (0.0-1.0); MONOCYTES % (AUTO) 8 % (0-12); NEUTROPHILS # (AUTO) 5.5 10^3/uL (1.8-7.8); NEUTROPHILS % (AUTO) 76 % (42-75); PLATELET COUNT 260 10^3/uL (130-400); WHITE BLOOD COUNT 7.3 10^3/uL (4.3-11.0)
[2021-05-03 20:42] VITALS: BP 105/62
--- NOTE | 2021-05-03 20:43 | ED General ---
General Stated Complaint: NAUSEA, DIZZINESS, HEADACHE Source of Information: Patient, EMS (DELLA DENISE MED STUDENT) History of Present Illness Date Seen by Provider: May 03, 2021 Time Seen by Provider: 20:25 Initial Comments This is a 75 YO male with history of DM, HTN, and brain cancer who was brought to the ED by EMS for headache and nausea. Pt states these symptoms have been present with his brain tumor and have been gradually worsening, but are much worse tonight. Takes multiple medications at home for his pain management, but feels that they do no help. States that he is able to move his legs intermittently, but his is also not new. His cancer is being managed by Dr. Santiago in [place] and has a telemedicine appointment with him this Saturday regarding surgical removal of the tumor. Timing/Duration: Getting Worse (DELLA DENISE MED STUDENT) Allergies and Home Medications Allergies Coded Allergies: meperidine (Verified Allergy, Severe, Mental Confusion, 07/16/18) Patient Home Medication List Home Medication List Reviewed: Yes (BHAKTI CRUZ MD) Acetaminophen (Tylenol Extra Strength) 500 Mg Tablet, 1,000 MG PO DAILY PRN for PAIN-MILD, (Reported) Entered as Reported by: LISANDRO COFFMAN on 07/18/18 0857 Alprazolam (Xanax) 0.5 Mg Tablet, 0.5 MG PO TID PRN for ANXIETY, (Reported) Entered as Reported by: FILOMENA BAZZI on 04/30/18 1209 Benazepril HCl (Benazepril HCl) 5 Mg Tablet, 5 MG PO DAILY, (Reported) Entered as Reported by: FILOMENA BAZZI on 04/30/18 1209 Bethanechol Chloride (Urecholine) 25 Mg Tablet, 50 MG PO ACHS, (Reported) Entered as Reported by: FILOMENA BAZZI on 08/04/18 1449 Cefdinir (Cefdinir) 300 Mg Capsule, 300 MG PO BID Prescribed by: PAYAL BARDLAES on 09/25/20 2352 Clotrimazole/Betamethasone Dip (Clotrimazole-Betamethasone Crm) 15 Gm Cream..g., 15 GM TP BID Prescribed by: BHAKTI OLIVAREZ on 05/04/21 0146 Escitalopram Oxalate (Lexapro) 10 Mg Tablet, 10 MG PO HS, (Reported) Entered as Reported by: FILOMENA BAZZI on 04/30/18 1209 Hydrocodone/Acetaminophen (Lorcet 5-325 mg Tablet) 1 Each Tablet, 1 EACH PO Q4- 6HR PRN for PAIN-MODERATE Prescribed by: ELYSIA HAYS on 10/09/19 1442 Insulin NPH Hum/Reg Insulin Hm (Humulin 70-30 Vial) 100 Unit/1 Ml Vial, 80 UNITS SC BID, (Reported) Entered as Reported by: LISANDRO COFFMAN on 07/18/18 0857 Magnesium Oxide (Magnesium Oxide) 400 Mg Tablet, 400 MG PO BID Prescribed by: BHAKTI OLIVAREZ on 05/04/21 0146 Mupirocin (Mupirocin) 22 Gm Oint...g., 22 GM TP BID Prescribed by: BHAKTI OLIVAREZ on 05/04/21 0146 Neomycin Tillman/Bacitrac Zn/Poly (Neosporin Ointment) 28.3 Gm Oint...g., TP TID, (Reported) Entered as Reported by: LISANDRO COFFMAN on 07/18/18 0857 Pantoprazole Sodium (Pantoprazole Sodium) 40 Mg Tablet.dr, 40 MG PO DAILY, (Reported) Entered as Reported by: FILOMENA BAZZI on 04/30/18 1209 Phenazopyridine HCl (Pyridium) 200 Mg Tablet, 1 TAB PO TID Prescribed by: PAYAL BARDALES on 09/25/20 2352 Potassium Chloride (Potassium Chloride) 10 Meq Tablet.er, 10 MEQ PO DAILY, (Reported) Entered as Reported by: LISANDRO COFFMAN on 07/18/18 0846 Simvastatin (Simvastatin) 20 Mg Tablet, 10 MG PO HS, (Reported) Entered as Reported by: LISANDRO COFFMAN on 07/18/18 0857 Tamsulosin HCl (Flomax) 0.4 Mg Cap, 0.4 MG PO BID, (Reported) Entered as Reported by: FILOMENA BAZZI on 08/04/18 1449 Review of Systems Review of Systems Constitutional: No chills, No fever; weakness EENTM: No blurred vision, No double vision Respiratory: No cough, No dyspnea on exertion Cardiovascular: No palpitations; syncope Gastrointestinal: No abdominal pain, No nausea, No vomiting Genitourinary: no symptoms reported Musculoskeletal: No back pain, No neck pain Skin: No lesions, No rash Psychiatric/Neurological: See HPI, Headache, Weakness Hematologic/Lymphatic: No Symptoms Reported Immunological/Allergic: no symptoms reported (DELLA DENISE) All Other Systems Reviewed Negative Unless Noted: Yes (Negative excepted noted.) (DELLA DENISE) Past Ccssatz-Uxcxvl-Ueazsu Hx Immunizations Up To Date Tetanus Booster (TDap): Unknown PED Vaccines UTD: No First/Initial COVID19 Vaccinat: 03/31/20 Second COVID19 Vaccination Tony: 04/28/20 Third COVID19 Vaccination Date: 02/21/21 (DELLA DENISE) Seasonal Allergies Seasonal Allergies: No (DELLA DENISE) Past Medical History Surgery/Hospitalization HX: CARDAIC CATHS WITH STENTS X 7, TURP FOR PROSTATE CANCER, CATARACT SURGERY Surgeries: Yes (7 stents) Coronary Stent, Eye Surgery, Transurethral Resection Respiratory: Yes (oxygen at hs) COPD Currently Using CPAP: No Currently Using BIPAP: No Cardiac: Yes (STENTS X 7) Coronary Artery Disease, Heart Attack, High Cholesterol, Hypertension Neurological: Yes Brain Tumor, Headaches /Migraines, Vertigo Reproductive Disorders: No Genitourinary: Yes (PROSTATE CANCER; CHRONIC INCONTINENCE; HX RETENTINON) Prostate Problems Gastrointestinal: Yes Gastroesophageal Reflux Musculoskeletal: Yes Arthritis, Fractures Endocrine: Yes Diabetes, Insulin dep HEENT: Yes Cataract Cancer: Yes (lip) Prostate, Skin Did You Recieve Any Treatments: Yes What Type of Treatment Did You: Radiation, Surgical Intervention Psychosocial: No Integumentary: No Blood Disorders: No Adverse Reaction/Blood Tranf: No (DELLA DENISE) Family Medical History Patient reports no known family medical history. No Pertinent Family Hx (DELLA DENISE) Physical Exam Vital Signs Vital Signs - First Documented 05/03/21 20:42 Temp 35.7 Pulse 76 Resp 18 B/P (MAP) 105/62 (76) Pulse Ox 94 O2 Delivery Room Air (BHAKTI CRUZ MD) Vital Signs Capillary Refill : (DELLA DENISE STUDENT) Height, Weight, BMI Height: 6'0" Weight: 245lbs. 0.0oz. [id number]; 40.00 BMI Method:Stated General Appearance: No Apparent Distress, WD/WN Eyes: Bilateral Eye Normal Inspection, Bilateral Eye EOMI HEENT: PERRL/EOMI; No Scleral Icterus (L), No Scleral Icterus (R) Neck: Full Range of Motion, Normal Inspection Respiratory: Lungs Clear, Normal Breath Sounds, No Accessory Muscle Use, No Respiratory Distress Cardiovascular: Regular Rate, Rhythm, No Edema, No Murmur Gastrointestinal: Non Tender, Soft, Other (obese abdomen) Extremity: Normal Inspection, Other (moves all extremities, no injuries or deformities) Neurologic/Psychiatric: Alert, Oriented x3, Normal Mood/Affect Skin: Normal Color, Warm/Dry (DELLA DENISE MED STUDENT) Progress/Results/Core Measures Suspected Sepsis SIRS Temperature: Pulse: Respiratory Rate: Laboratory Tests 05/03/21 20:25: White Blood Count 7.3 Blood Pressure / Mean: Laboratory Tests 05/03/21 20:25: Creatinine 1.48H, Platelet Count 260, Total Bilirubin 0.7 (DELLA DENISE MED STUDENT) Results/Orders Lab Results Laboratory Tests Test 05/03/21 20:25 05/03/21 23:55 Range/Units White Blood Count 7.3 4.3-11.0 10^3/uL Red Blood Count 5.18 4.30-5.52 10^6/uL Hemoglobin 15.3 13.3-17.7 g/dL Hematocrit 46 40-54 % Mean Corpuscular Volume 88 80-99 fL Mean Corpuscular Hemoglobin 30 25-34 pg Mean Corpuscular Hemoglobin Concent 34 32-36 g/dL Red Cell Distribution Width 13.2 10.0-14.5 % Platelet Count 260 130-400 10^3/uL Mean Platelet Volume 10.3 9.0-12.2 fL Immature Granulocyte % (Auto) 1 % Neutrophils (%) (Auto) 76 H 42-75 % Lymphocytes (%) (Auto) 13 12-44 % Monocytes (%) (Auto) 8 0-12 % Eosinophils (%) (Auto) 1 0-10 % Basophils (%) (Auto) 1 0-10 % Neutrophils # (Auto) 5.5 1.8-7.8 10^3/uL Lymphocytes # (Auto) 1.0 1.0-4.0 10^3/uL Monocytes # (Auto) 0.6 0.0-1.0 10^3/uL Eosinophils # (Auto) 0.1 0.0-0.3 10^3/uL Basophils # (Auto) 0.1 0.0-0.1 10^3/uL Immature Granulocyte # (Auto) 0.0 0.0-0.1 10^3/uL Sodium Level 136 135-145 MMOL/L Potassium Level 4.6 3.6-5.0 MMOL/L Chloride Level 101 98-107 MMOL/L Carbon Dioxide Level 20 L 21-32 MMOL/L Anion Gap 15 H 5-14 MMOL/L Blood Urea Nitrogen 28 H 7-18 MG/DL Creatinine 1.48 H 0.60-1.30 MG/DL Estimat Glomerular Filtration Rate 49 BUN/Creatinine Ratio 19 Glucose Level 201 H 70-105 MG/DL Calcium Level 9.9 8.5-10.1 MG/DL Corrected Calcium 9.8 8.5-10.1 MG/DL Magnesium Level 1.5 L 1.6-2.4 MG/DL Total Bilirubin 0.7 0.1-1.0 MG/DL Aspartate Amino Transf (AST/SGOT) 22 5-34 U/L Alanine Aminotransferase (ALT/SGPT) 24 0-55 U/L Alkaline Phosphatase 101 40-136 U/L Total Protein 6.9 6.4-8.2 GM/DL Albumin 4.1 3.2-4.5 GM/DL Urine Color YELLOW Urine Clarity CLEAR Urine pH 5.5 5-9 Urine Specific [place] 1.010 L 1.016-1.022 Urine Protein NEGATIVE NEGATIVE Urine Glucose (UA) 3+ H NEGATIVE Urine Ketones NEGATIVE NEGATIVE Urine Nitrite NEGATIVE NEGATIVE Urine Bilirubin NEGATIVE NEGATIVE Urine Urobilinogen 1.0 < = 1.0 MG/DL Urine Leukocyte Esterase NEGATIVE NEGATIVE Urine RBC (Auto) NEGATIVE NEGATIVE Urine RBC NONE /HPF Urine WBC RARE /HPF Urine Squamous Epithelial Cells RARE /HPF Urine Renal Epithelial Cells 0-2 /HPF Urine Crystals NONE /LPF Urine Bacteria NEGATIVE /HPF Urine Casts NONE /LPF Urine Mucus NEGATIVE /LPF Urine Culture Indicated NO (BHAKTI CRUZ MD) My Orders Orders - BHAKTI CRUZ MD Cbc With Automated Diff (05/03/21 20:30) Comprehensive Metabolic Panel (05/03/21 20:30) Magnesium (05/03/21 20:30) Ua Culture If Indicated (05/03/21 20:30) Ed Iv/Invasive Line Start (05/03/21 20:30) Ct Head W Wo (05/03/21 20:30) Iohexol Injection (Omnipaque 350 Mg/Ml 1 (05/03/21 21:15) Received Contrast (Hold Metformin- Contr (05/03/21 21:15) Ns (Ivpb) (Sodium Chloride 0.9% Ivpb Bag (05/03/21 21:15) Ns Iv 1000 Ml (Sodium Chloride 0.9%) (05/03/21 22:00) Magnesium 1 Gm/100 Ml Ivpb (Magnesium Tillman (05/03/21 22:00) Walker (05/04/21 01:33) Magnesium Oxide Tablet (Mag Ox Tablet) (05/04/21 01:45) (BHAKTI CRUZ MD) Medications Given in ED (BHAKTI CRUZ MD) Vital Signs/I&O 05/03/21 20:42 Temp 35.7 Pulse 76 Resp 18 B/P (MAP) 105/62 (76) Pulse Ox 94 O2 Delivery Room Air 05/04/21 00:00 Intake Total 0 ml Balance 0 ml (BHAKTI CRUZ MD) Vital Signs/I&O Capillary Refill : (DELLA DENISE MED STUDENT) Progress Note #1: Time: 22:45 Progress Note Patient was seen and examined by me along with MS4. Labs have been reviewed. Eloise martinez has a bit of renal insufficiency which is being treated with IV fluids. Magnesium is also a bit low and a gram of IV magnesium will be administered. On my exam patient appeared to have no measurable weakness of the lower extremities. After he has had his magnesium and IV fluids, we will get him up and see how he performs with walking. Anticipate discharge home without further treatment in the ER. Patient reports his headache dissipated without any treatment from us. Progress Note #2: Time: 01:40 Progress Note Patient states his headache, dizziness, and lower extremity weakness have resolved. Patient was able to get up and walk independently without any assistive devices prior to discharge. We did dispense a walker that he can use when he does experience more disequilibrium. He is being prescribed magnesium supplementation for the next week. He was given an additional magnesium oxide tablet prior to discharge. Patient also showed me some skin lesions on his abdomen and left shoulder that are pruritic. He has been using a "salve" on them without any improvement. He asked that I address these. He is also having trouble getting glucometer strips because the pharmacy he uses does not carry his type of strep. I was not sure how to help him with this problem so I am directing him to his primary care provider. I spoke with the patient's multiple times over the phone. She was pressuring this provider to try to transfer the patient to [facility]. I explained that there were no acute changes that warranted emergent transfer that would place patient and transfer crew at risk with a nighttime transfer. Patient was pleased with his care and was pleased with discharge. (BHAKTI CRUZ MD) Diagnostic Imaging Diagonstic Imaging: CT Plain Films/CT/US/NM/MRI: head Comments CT head viewed by me and report reviewed. See report below: NAME: YOKASTA BALDWIN MED REC#: [id number] PT STATUS: REG ER : 1945 PHYSICIAN: BHAKTI CRUZ MD ADMIT DATE: 05/03/21/ER Draft Date of Exam:05/03/21 CT HEAD W WO PROCEDURE: CT head with and without contrast. TECHNIQUE: Multiple contiguous axial images were obtained through the brain before and after the administration of intravenous contrast. Auto Exposure Controls were utilized during the CT exam to meet ALARA standards for radiation dose reduction. INDICATION: Brain tumor. COMPARISON: CT head from 03/20/2021. FINDINGS: The dural based homogeneous enhancing mass in the anterior aspect of the left middle cranial fossa is stable in size measuring 3.6 x 2.9 x 3.5 cm. Unchanged since prior examination, there is a small amount of perilesional vasogenic edema in the left temporal lobe. No midline shift or hydrocephalus. No intra-cranial hyperdense hemorrhage or new mass. Basilar cisterns remain patent. No acute calvarial abnormality. IMPRESSION: 1. The meningioma centered in the left middle cranial fossa is unchanged since CT from 03/20/2021. This again is noted to have a small amount of vasogenic edema in the anterior aspect of the left temporal lobe. 2. No hemorrhage, midline shift or obstructive hydrocephalus. Dictated on workstation # [id number] Dict: 05/03/212138 Trans: 05/03/212146 [facility] [id number] Interpreted by: SHAMIKA RIOS MD (BHAKTI CRUZ MD) Departure Impression Primary Impression: Disequilibrium Additional Impressions: Meningioma Hypomagnesemia Skin lesion Disposition: HOME, SELF-CARE Condition: Improved Departure-Patient Inst. Decision time for Depature: 01:43 (BHAKTI CRUZ MD) Referrals: NO,LOCAL PHYSICIAN (PCP) Primary Care Physician INGRIS GUTIÉRREZ (Family) Primary Care Physician Patient Instructions: Meningioma Add. Discharge Instructions: Your meningioma is stable by CT scan. Your magnesium was mildly low. Take a magnesium supplementation for the next week as prescribed to help boost your magnesium levels. Drink plenty of water to stay well-hydrated. Keep your appointment with Dr. Santiago at on Saturday. When you are feeling dizzy or off balance use the walker to assist you in walking. Do not attempt to walk on your own and less you know it is safe to do so. Mix the 2 ointments prescribed together and apply to your skin spots twice daily until they resolve. Call with questions or concerns. Return to the ER if you have worsening symptoms. Scripts Clotrimazole/Betamethasone Dip (Clotrimazole-Betamethasone Crm) 15 Gm Cream..g. 15 GM TP BID, #1 EA Prov: BHAKTI CRUZ MD 05/04/21 Mupirocin (Mupirocin) 22 Gm Oint...g. 22 GM TP BID, #1 EA Prov: BHAKTI CRUZ MD 05/04/21 Magnesium Oxide (Magnesium Oxide) 400 Mg Tablet 400 MG PO BID, #10 TAB Prov: BHAKTI CRUZ MD 05/04/21 Medical Student Attestation and Attending Note: I have personally interviewed and examined this patient along with Della Denise, MS 4. I have reviewed student documentation including history, physical, and assessments. I agree with the documentation except where otherwise noted. Exam: General: Alert, oriented, no acute distress, well developed HEENT: Normocephalic and atraumatic Heart: Regular rate and rhythm without murmur Lungs: Clear to auscultation bilaterally with normal effort Abdomen: Soft, nontender, nondistended, normal bowel sounds Neuropsych: Alert, oriented, no focal deficits, normal gait Skin: Warm and dry without rashes (BHAKTI CRUZ MD) DELLA DENISE MED STUDENT May 03, 2021 20:43 BHAKTI CRUZ MD May 03, 2021 22:47
[2021-05-03 20:58] LABS: ALBUMIN 4.1 GM/DL (3.2-4.5); BILIRUBIN,TOTAL 0.7 MG/DL (0.1-1.0); CALCIUM 9.9 MG/DL (8.5-10.1); CREATININE SERUM 1.48 MG/DL (0.60-1.30); MAGNESIUM 1.5 MG/DL (1.6-2.4); POTASSIUM 4.6 MMOL/L (3.6-5.0); TOTAL PROTEIN 6.9 GM/DL (6.4-8.2)
[2021-05-03] MEDS ORDERED: NS 100 ML (IVPB) BAG IV ONE (21:15)
[2021-05-03] MEDS ORDERED: HOLD METFORMIN - RECEIVED CONTRAST 20 ML VIAL IV SCH (21:15)
[2021-05-03] MEDS ORDERED: IOHEXOL 350 MG/ML 100 ML (OMNIPAQUE 350) VIAL IV ONE (21:15)
--- NOTE | 2021-05-03 21:49 | Diagnostic Imaging Report ---
PROCEDURE: CT head with and without contrast. TECHNIQUE: Multiple contiguous axial images were obtained through the brain before and after the administration of intravenous contrast. Auto Exposure Controls were utilized during the CT exam to meet ALARA standards for radiation dose reduction. INDICATION: Brain tumor. COMPARISON: CT head from 03/20/2021. FINDINGS: The dural based homogeneous enhancing mass in the anterior aspect of the left middle cranial fossa is stable in size measuring 3.6 x 2.9 x 3.5 cm. Unchanged since prior examination, there is a small amount of perilesional vasogenic edema in the left temporal lobe. No midline shift or hydrocephalus. No intra-cranial hyperdense hemorrhage or new mass. Basilar cisterns remain patent. No acute calvarial abnormality. IMPRESSION: 1. The meningioma centered in the left middle cranial fossa is unchanged since CT from 03/20/2021. This again is noted to have a small amount of vasogenic edema in the anterior aspect of the left temporal lobe. 2. No hemorrhage, midline shift or obstructive hydrocephalus. Dictated by: Dictated on workstation # [id number]
[2021-05-03] MEDS ORDERED: NS IV 1000 ML 1,000 ML IV SCH (22:00)
[2021-05-03] MEDS ORDERED: MAGNESIUM 1 GM/100 ML IVPB 100 ML IV ONE (22:00)
[2021-05-04] LABS: BILIRUBIN,URINE NEGATIVE (NEGATIVE); CLARITY,URINE CLEAR; COLOR,URINE YELLOW; GLUCOSE, URINE (UA) 3+ (NEGATIVE); KETONES,URINE NEGATIVE (NEGATIVE); LEUKOCYTE ESTERASE ,URINE NEGATIVE (NEGATIVE); NITRITE,URINE NEGATIVE (NEGATIVE); PH,URINE 5.5 (5-9); PROTEIN,URINE NEGATIVE (NEGATIVE)
[2021-05-04 00:06] LABS: BACTERIA,URINE NEGATIVE /HPF; SQUAMOUS EPITHELIAL CELL,UR RARE /HPF; WBC,URINE RARE /HPF
[2021-05-04 00:07] LABS: RENAL EPITHELIAL CELLS,URINE 0-2 /HPF
[2021-05-04] MEDS ORDERED: MAGNESIUM OXIDE (MAG-OX)400 MG TAB PO ONE (01:45)
[2021-05-04] MEDS ORDERED: CLOT15CR6 TP (01:46)
[2021-05-04] MEDS ORDERED: MUPI22OI2 TP (01:46)
[2021-05-04] MEDS ORDERED: MGX400T PO (01:46)
== END 2021-05-04 02:35 | disposition home or self-care (01) ==
LOC: EDUNIT# 20:24 → ER 20:25
DX: D32.0 Benign neoplasm of cerebral meninges (principal); E87.8 Other disorders of electrolyte and fluid balance, not elsewhere classified; E83.42 Hypomagnesemia; L98.9 Disorder of the skin and subcutaneous tissue, unspecified
CPT/HCPCS: 36415; 70470; 80053; 81000; 83735; 85025; 99283

== ENCOUNTER 2021-05-08 16:29 | Emergency (ER) | payer MEDICARE, MEDICAID ==
[~2021-05-08] VITALS: Ht 182 cm; Wt 95.2 kg
[~2021-05-08 16:29] MED LIST changes: +CLOT15CR6 TP; +MGX400T PO; +MUPI22OI2 TP
[2021-05-08 16:33] VITALS: BP 110/78
[2021-05-08 16:57] LABS: BASOPHILS # (AUTO) 0.1 10^3/uL (0.0-0.1); BASOPHILS % (AUTO) 1 % (0-10); EOSINOPHILS # (AUTO) 0.2 10^3/uL (0.0-0.3); EOSINOPHILS % (AUTO) 3 % (0-10); HEMATOCRIT 44 % (40-54); HEMOGLOBIN 14.6 g/dL (13.3-17.7); LYMPHOCYTES # (AUTO) 1.3 10^3/uL (1.0-4.0); LYMPHOCYTES % (AUTO) 18 % (12-44); MEAN CORPUSCULAR HEMOGLOBIN 29 pg (25-34); MEAN CORPUSCULAR HGB CONC 33 g/dL (32-36); MEAN CORPUSCULAR VOLUME 89 fL (80-99); MEAN PLATELET VOLUME 10.5 fL (9.0-12.2); MONOCYTES # (AUTO) 0.6 10^3/uL (0.0-1.0); MONOCYTES % (AUTO) 8 % (0-12); NEUTROPHILS # (AUTO) 5.1 10^3/uL (1.8-7.8); NEUTROPHILS % (AUTO) 71 % (42-75); PLATELET COUNT 262 10^3/uL (130-400); WHITE BLOOD COUNT 7.3 10^3/uL (4.3-11.0)
[2021-05-08 17:00] LABS: ALBUMIN 3.8 GM/DL (3.2-4.5); CHLORIDE 101 MMOL/L (98-107); POTASSIUM 4.5 MMOL/L (3.6-5.0); SODIUM 136 MMOL/L (135-145)
[2021-05-08 17:01] LABS: CALCIUM 9.9 MG/DL (8.5-10.1)
[2021-05-08 17:03] LABS: GLUCOSE 121 MG/DL (70-105); TOTAL PROTEIN 6.2 GM/DL (6.4-8.2)
[2021-05-08 17:04] LABS: BILIRUBIN,TOTAL 0.5 MG/DL (0.1-1.0); CARBON DIOXIDE 24 MMOL/L (21-32)
[2021-05-08 17:06] LABS: ALKALINE PHOSPHATASE 97 U/L (40-136); CREATININE SERUM 1.19 MG/DL (0.60-1.30); FIBRIN DEGRADATION PRODUCTS 0.89 UG/ML (0.00-0.49); GFR ESTIMATED 64; PROTHROMBIN TIME PATIENT 13.6 SEC (12.2-14.7)
[2021-05-08 17:07] LABS: BUN/CREATININE RATIO 19
[2021-05-08 17:09] LABS: ALANINE AMINOTRANSFERASE 24 U/L (0-55)
--- NOTE | 2021-05-08 17:22 | Diagnostic Imaging Report ---
Indication: Altered mental status Portable chest 5:22 PM Heart size and pulmonary vascularity are normal. Lungs are clear. There are no effusions or pneumothoraces. IMPRESSION: Negative chest Dictated by: Dictated on workstation # [id number]
--- NOTE | 2021-05-08 17:28 | Diagnostic Imaging Report ---
PROCEDURE: CT head wo r/o stroke. TECHNIQUE: Multiple contiguous axial images were obtained through the brain without the use of intravenous contrast. Auto Exposure Controls were utilized during the CT exam to meet ALARA standards for radiation dose reduction. INDICATION: Neurologic deficit COMPARISON: 05/03/2021 Ventricles and sulci are within normal limits for size. The peripherally calcified mass in the anterior aspect of the middle cranial fossa is similar to the previous study with surrounding vasogenic edema and/or developing gliosis in the temporal lobe white matter. There is also low density within the posterior aspects of the cerebral hemispheres most pronounced in the right temporoparietal region. This may be worsened when compared to the previous study. There is probable old lacunar infarct in the right posterior frontal white matter with small focal lucency in the right thalamus which may also be due to nonacute lacunar infarct. No acute hemorrhage is identified. There is no definite calvarial abnormality and the paranasal sinuses are clear. IMPRESSION: Continued dural based mass in the anterior left middle cranial fossa with associated vasogenic edema and/or developing gliosis. There is mild worsening of low density in the right temporoparietal white matter which could also be due to developing gliosis from previous injury. MRI assessment may be of value, if indicated. Dictated by: Dictated on workstation # [id number]
--- NOTE | 2021-05-08 18:29 | ED Neurological Problem ---
General Chief Complaint: Neuro-Stroke Like Symptoms Stated Complaint: POSS STROKE Nursing Triage Note: PT PRESENTS TO ED WITH COMPLAINTS OF L SIDED WEKNESS, L SIDED FACIAL DROOP, AND SLURRING OF SPEACH STARTING AT 1500. WHILE IN ROUTE WITH EMS THEY REPROTS PT STRENGTH IN L SIDED SEEMED TO BE IMPROVING. Source: patient Exam Limitations: no limitations (BHAKTI CRUZ MD) History of Present Illness Date Seen by Provider: May 08, 2021 Time Seen by Provider: 16:29 Initial Comments This 75-year-old gentleman presents to the emergency room via EMS with strokelike symptoms. He has a known history of meningioma. He was seen in this ER 5 days ago for headache and lower extremity weakness. At that time the CT of his head was stable and his symptoms resolved. He had an appointment with his neurosurgeon, Dr. Santiago at [facility] last May 05. Apparently at that telemedicine visit they decided to proceed with surgery for excision of the tumor on May 22. In the meantime, patient has had multiple falls. He apparently fell this weekend injuring his left hip and elbow. Then today around 15:00 he developed abrupt left-sided paralysis and facial droop. His daughter who is a nurse witnessed the event and stated he was completely flaccid on the left. EMS was evaluating him when he began moving his left side again at 15:45. Patient is accompanied by his daughter today. She describes a social and medical situation that is not stable or safe. She states patient has been falling frequently and intermittently loses motor control. 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 [place] [facility]. Fingerstick blood sugar was 106 for EMS. By the time of patient's arrival to the ER his NIH stroke score was only 1 for minimal left leg drift. Patient also was cleaning his fingernails with a switch blade over the weekend and dropped the knife on his right great toe. He has a scab and some inflammatory changes on the dorsal aspect of the right great toe. Patient's daughter also states that he had an episode of garbled speech on Saturday that has since resolved. (BHAKTI CRUZ MD) Allergies and Home Medications Allergies Coded Allergies: meperidine (Verified Allergy, Severe, Mental Confusion, 07/16/18) Patient Home Medication List Home Medication List Reviewed: Yes (BHAKTI CRUZ MD) Acetaminophen (Tylenol Extra Strength) 500 Mg Tablet, 1,000 MG PO DAILY PRN for PAIN-MILD, (Reported) Entered as Reported by: LISANDRO COFFMAN on 07/18/18 0857 Alprazolam (Xanax) 0.5 Mg Tablet, 0.5 MG PO TID PRN for ANXIETY, (Reported) Entered as Reported by: FILOMENA BAZZI on 04/30/18 1209 Benazepril HCl (Benazepril HCl) 5 Mg Tablet, 5 MG PO DAILY, (Reported) Entered as Reported by: FILOMENA BAZZI on 04/30/18 1209 Bethanechol Chloride (Urecholine) 25 Mg Tablet, 50 MG PO ACHS, (Reported) Entered as Reported by: FILOMENA BAZZI on 08/04/18 1449 Cefdinir (Cefdinir) 300 Mg Capsule, 300 MG PO BID Prescribed by: PAYAL BARDALES on 09/25/20 2352 Clotrimazole/Betamethasone Dip (Clotrimazole-Betamethasone Crm) 15 Gm Cream..g., 15 GM TP BID Prescribed by: BHAKTI OLIVAREZ on 05/04/21 014 Escitalopram Oxalate (Lexapro) 10 Mg Tablet, 10 MG PO HS, (Reported) Entered as Reported by: FILOMENA BAZZI on 04/30/18 1209 Hydrocodone/Acetaminophen (Lorcet 5-325 mg Tablet) 1 Each Tablet, 1 EACH PO Q4- 6HR PRN for PAIN-MODERATE Prescribed by: ELYSIA HAYS on 10/09/19 1442 Insulin NPH Hum/Reg Insulin Hm (Humulin 70-30 Vial) 100 Unit/1 Ml Vial, 80 UNITS SC BID, (Reported) Entered as Reported by: LISANDRO COFFMAN on 07/18/18 0857 Magnesium Oxide (Magnesium Oxide) 400 Mg Tablet, 400 MG PO BID Prescribed by: BHAKTI OLIVAREZ on 05/04/21 014 Mupirocin (Mupirocin) 22 Gm Oint...g., 22 GM TP BID Prescribed by: BHAKTI OLIVAREZ on 05/04/21 0146 Neomycin Tillman/Bacitrac Zn/Poly (Neosporin Ointment) 28.3 Gm Oint...g., TP TID, (Reported) Entered as Reported by: LISANDRO COFFMAN on 07/18/18 0857 Pantoprazole Sodium (Pantoprazole Sodium) 40 Mg Tablet.dr, 40 MG PO DAILY, (Reported) Entered as Reported by: FILOMENA BAZZI on 04/30/18 1209 Phenazopyridine HCl (Pyridium) 200 Mg Tablet, 1 TAB PO TID Prescribed by: PAYAL BARDALES on 09/25/20 2352 Potassium Chloride (Potassium Chloride) 10 Meq Tablet.er, 10 MEQ PO DAILY, (Reported) Entered as Reported by: LISANDRO COFFMAN on 07/18/18 0846 Simvastatin (Simvastatin) 20 Mg Tablet, 10 MG PO HS, (Reported) Entered as Reported by: LISANDRO COFFMAN on 07/18/18 0857 Tamsulosin HCl (Flomax) 0.4 Mg Cap, 0.4 MG PO BID, (Reported) Entered as Reported by: FILOMENA BAZZI on 08/04/18 1449 Review of Systems Review of Systems Constitutional: no symptoms reported Eyes: No Symptoms Reported Ears, Nose, Mouth, Throat: no symptoms reported Respiratory: no symptoms reported Cardiovascular: no symptoms reported Gastrointestinal: no symptoms reported Genitourinary: no symptoms reported Musculoskeletal: see HPI Skin: other (Abrasion left elbow) Psychiatric/Neurological: See HPI Endocrine: No Symptoms Reported Hematologic/Lymphatic: See HPI (BHAKTI CRUZ MD) Past Zsthubv-Kzjrew-Ertreh Hx Patient Social History Tobacco Use?: No Smoking Status: Former Smoker Substance use?: No Alcohol Use?: No Pt feels they are or have been: No (BHAKTI CRUZ MD) Immunizations Up To Date Tetanus Booster (TDap): Unknown PED Vaccines UTD: No First/Initial COVID19 Vaccinat: 2020 Second COVID19 Vaccination Tony: 2020 Third COVID19 Vaccination Date: 2020 (BHAKTI CRUZ MD) Seasonal Allergies Seasonal Allergies: No (BHAKTI CRUZ MD) Past Medical History Surgery/Hospitalization HX: CARDAIC CATHS WITH STENTS X 7, TURP FOR PROSTATE CANCER, CATARACT SURGERY, tia, brain tumor Surgeries: Yes (7 stents) Coronary Stent, Eye Surgery, Prostatectomy (TURP), Transurethral Resection Respiratory: Yes (oxygen at hs) COPD Currently Using CPAP: No Currently Using BIPAP: No Cardiac: Yes (STENTS X 7) Coronary Artery Disease, Heart Attack, High Cholesterol, Hypertension Neurological: Yes Brain Tumor, Headaches /Migraines, Vertigo Reproductive Disorders: No Genitourinary: Yes (PROSTATE CANCER; CHRONIC INCONTINENCE; HX RETENTINON) Prostate Problems Gastrointestinal: Yes Gastroesophageal Reflux Musculoskeletal: Yes Arthritis, Fractures Endocrine: Yes Diabetes, Insulin dep HEENT: Yes Cataract Cancer: Yes (lip) Prostate, Skin Did You Recieve Any Treatments: Yes What Type of Treatment Did You: Radiation, Surgical Intervention Psychosocial: No Integumentary: No Blood Disorders: No Adverse Reaction/Blood Tranf: No (BHAKTI CRUZ MD) Family Medical History Patient reports no known family medical history. No Pertinent Family Hx (BHAKTI CRUZ MD) Physical Exam Vital Signs Vital Signs - First Documented 05/08/21 05/08/21 16:33 19:30 Temp 35.6 Pulse 69 Resp 18 B/P (MAP) 110/78 (89) Pulse Ox 92 O2 Delivery Room Air (JEFFY,PAYAL K DO) Vital Signs Capillary Refill : Less Than 3 Seconds (BHAKTI CRUZ MD) Height, Weight, BMI Height: 6'0" Weight: 245lbs. 0.0oz. 111.040784gw; 28.00 BMI Method:Stated General Appearance: WD/WN, no apparent distress HEENT: normal ENT inspection, pharynx normal Neck: normal inspection Respiratory: lungs clear, normal breath sounds, no respiratory distress Cardiovascular: regular rate, rhythm, no edema, no murmur Gastrointestinal: normal bowel sounds, non tender, soft Extremities: other (Tenderness to the left elbow with abrasion. 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, alert, normal mood/affect, oriented x 3, motor weakness (Very slight drift to the left leg, otherwise normal) Crainal Nerves: normal hearing, normal speech, PERRL Coordination/Gait: normal finger to nose Motor/Sensory: no sensory deficit Skin: normal color, warm/dry (BHAKTI CRUZ MD) Stroke Onset of Symptoms Date of Onset of Symptoms: May 08, 2021 Time of Symptom Onset: 15:00 (BHAKTI CRUZ MD) NIH Stroke Scale Assessment Level of Consciousness: 0=Alert (0), Level of Consciousness-Questions: 0=Answers both month/age (0), LOC Commands: 0=Performs both tasks (0), Visual Rowell: 0=No visual loss (0), Facial Movement (Facial Paresis): 0=Normal symmetrical mnt (0), Motor Function-Arms Right: 0=No drift (0), Motor Function-Arms Left: 0=No drift (0), Motor Function-Legs Right: 0=No drift (0), Motor Function-Legs Left: 1=Drift (1), Limb Ataxia: 0=Absent (0), Sensory: 0=Normal:no loss (0), Best Language: 0=No aphasia (0), Dysarthria: 0=Normal (0), Extinction & Inattention: 0=No abnormality (0), Total: 1 Progress/Results/Core Measures Results/Orders Lab Results Laboratory Tests Test 05/08/21 16:37 Range/Units White Blood Count 7.3 4.3-11.0 10^3/uL Red Blood Count 4.97 4.30-5.52 10^6/uL Hemoglobin 14.6 13.3-17.7 g/dL Hematocrit 44 40-54 % Mean Corpuscular Volume 89 80-99 fL Mean Corpuscular Hemoglobin 29 25-34 pg Mean Corpuscular Hemoglobin Concent 33 32-36 g/dL Red Cell Distribution Width 13.2 10.0-14.5 % Platelet Count 262 130-400 10^3/uL Mean Platelet Volume 10.5 9.0-12.2 fL Immature Granulocyte % (Auto) 0 % Neutrophils (%) (Auto) 71 42-75 % Lymphocytes (%) (Auto) 18 12-44 % Monocytes (%) (Auto) 8 0-12 % Eosinophils (%) (Auto) 3 0-10 % Basophils (%) (Auto) 1 0-10 % Neutrophils # (Auto) 5.1 1.8-7.8 10^3/uL Lymphocytes # (Auto) 1.3 1.0-4.0 10^3/uL Monocytes # (Auto) 0.6 0.0-1.0 10^3/uL Eosinophils # (Auto) 0.2 0.0-0.3 10^3/uL Basophils # (Auto) 0.1 0.0-0.1 10^3/uL Immature Granulocyte # (Auto) 0.0 0.0-0.1 10^3/uL Prothrombin Time 13.6 12.2-14.7 SEC INR Comment 1.0 0.8-1.4 Activated Partial Thromboplast Time 26 24-35 SEC D-Dimer 0.89 H 0.00-0.49 UG/ML Sodium Level 136 135-145 MMOL/L Potassium Level 4.5 3.6-5.0 MMOL/L Chloride Level 101 98-107 MMOL/L Carbon Dioxide Level 24 21-32 MMOL/L Anion Gap 11 5-14 MMOL/L Blood Urea Nitrogen 23 H 7-18 MG/DL Creatinine 1.19 0.60-1.30 MG/DL Estimat Glomerular Filtration Rate 64 BUN/Creatinine Ratio 19 Glucose Level 121 H 70-105 MG/DL Calcium Level 9.9 8.5-10.1 MG/DL Corrected Calcium 10.1 8.5-10.1 MG/DL Total Bilirubin 0.5 0.1-1.0 MG/DL Aspartate Amino Transf (AST/SGOT) 23 5-34 U/L Alanine Aminotransferase (ALT/SGPT) 24 0-55 U/L Alkaline Phosphatase 97 40-136 U/L Troponin I < 0.028 <0.028 NG/ML Total Protein 6.2 L 6.4-8.2 GM/DL Albumin 3.8 3.2-4.5 GM/DL (PAYAL BARDALES DO) My Orders Orders - PAYAL BARDALES DO Ed Iv/Invasive Line Start (05/08/21 21:51) Lr 1000ml Iv (05/08/21 22:00) (PAYAL BARDALES DO) Medications Given in ED Current Medications Medications Dose Ordered Sig/Sylvie Route Start Time Stop Time Status Last Admin Dose Admin Fentanyl Citrate 50 mcg ONCE ONCE IVP 05/08/21 18:30 05/08/21 18:31 DC 05/08/21 18:45 50 MCG Fentanyl Citrate 50 mcg ONCE ONCE IVP 05/08/21 20:30 05/08/21 20:31 DC 05/08/21 20:23 50 MCG Iohexol 150 ml ONCE ONCE IV 05/08/21 20:30 05/08/21 20:31 DC 05/08/21 20:52 150 ML Ondansetron HCl 8 mg ONCE ONCE IVP 05/08/21 18:30 05/08/21 18:31 DC 05/08/21 18:44 8 MG Sodium Chloride 10 ml NEEDED PRN IV 05/08/21 20:30 05/08/21 20:53 10 ML Sodium Chloride 100 ml ONCE ONCE IV 05/08/21 20:30 05/08/21 20:31 DC 05/08/21 20:53 150 ML (JEFFY,PAYAL K DO) Vital Signs/I&O 05/08/21 05/08/21 16:33 19:30 Temp 35.6 Pulse 69 Resp 18 B/P (MAP) 110/78 (89) Pulse Ox 92 93 O2 Delivery Room Air (JEFFY,PAYAL K DO) Blood Pressure Mean: 89 Progress Progress Note #1: Time: 19:15 Progress Note Stroke work-up was pursued. Patient was not a TPA candidate due to the intracranial tumors and edema. He also had rapidly improving symptoms with an NIH score of only 1. CT scan was repeated and there was apparent progression of edematous changes to the brain lesions. I do believe the patient and family's request to seek earlier interventions at [facility] is reasonable given his decline and compromised safety at home. I have contacted the [facility] transfer center. Patient is stable at this time. He is receiving fentanyl and Zofran for symptom control. His daughter remains at bedside. Progress Note #2: Time: 20:32 Progress Note Mr. Baldwin's case has become rather complicated. The [facility] transfer center was not able to discuss the case directly with Dr. 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 After discussing with the physician consultants, they determined that transfer tonight was not appropriate because there is a lengthy care plan leading up to a risky excision of the meningioma. This involves meeting with multiple care teams by telemed on May 11. He then has to be off of aspirin and Plavix for 5 days, possibly bridging with heparin. The recommendation was to admit to our facility and then work with Dr. Santiago during business hours to determine if his surgery could be expedited. I discussed the situation with Dr. Sheets. In reviewing the case and prior images it was discovered that he also has 80% stenosis of the right carotid and 60% stenosis of the left. Dr. Sheets desired clear instruction from [facility] specialist on how to proceed with the patient's therapies and instructions on course of action to be taken should the deficits return. I contacted [facility] again and spoke with Dr. Bateman, stroke neurologist. He notes that the smaller lesion on the right is new since March. There is concern that the right sided carotid stenosis is worsening and causing strokes and possible TIA this evening. Symptoms previously attributed to the meningioma very well could be more related to the stenosis. The right sided stenosis would better correlate with left sided deficits than the meningioma on the left side of the brain. Dr. Bateman recommended prompt CT angiogram and CT perfusion scan to help determine next steps. Disposition will be pending the results of the scans. Patient and daughter have been updated. (BHAKTI CRUZ MD) Initial ECG Impression Date: May 08, 2021 Initial ECG Impression Time: 17:02 Initial ECG Rate: 66 Comment Normal sinus rhythm with no ST elevation or depression. No abnormal intervals or axis deviation. (BHAKTI CRUZ MD) Diagnostic Imaging Diagonstic Imaging: CT Plain Films/CT/US/NM/MRI: head Comments CT head viewed by me and report reviewed. See report below: NAME: YOKASTA BALDWIN [facility] REC#: [id number] PT STATUS: REG ER : 1945 PHYSICIAN: BHAKTI CRUZ MD ADMIT DATE: 05/08/21/ER Signed Date of Exam:05/08/21 CT HEAD WO-R/O STROKE PROCEDURE: CT head wo r/o stroke. TECHNIQUE: Multiple contiguous axial images were obtained through the brain without the use of intravenous contrast. Auto Exposure Controls were utilized during the CT exam to meet ALARA standards for radiation dose reduction. INDICATION: Neurologic deficit COMPARISON: 05/03/2021 Ventricles and sulci are within normal limits for size. The peripherally calcified mass in the anterior aspect of the middle cranial fossa is similar to the previous study with surrounding vasogenic edema and/or developing gliosis in the temporal lobe white matter. There is also low density within the posterior aspects of the cerebral hemispheres most pronounced in the right temporoparietal region. This may be worsened when compared to the previous study. There is probable old lacunar infarct in the right posterior frontal white matter with small focal lucency in the right thalamus which may also be due to nonacute lacunar infarct. No acute hemorrhage is identified. There is no definite calvarial abnormality and the paranasal sinuses are clear. IMPRESSION: Continued dural based mass in the anterior left middle cranial fossa with associated vasogenic edema and/or developing gliosis. There is mild worsening of low density in the right temporoparietal white matter which could also be due to developing gliosis from previous injury. MRI assessment may be of value, if indicated. Dictated by: Dictated on workstation # [id number] Dict: 05/08/211720 Trans: 05/08/211755 [facility] [id number] Interpreted by: IRINEO HULL MD Electronically signed by: IRINEO HULL MD 05/08/211755 Diagonstic Imaging: Xray Plain Films/CT/US/NM/MRI: chest Comments Chest x-ray viewed by me and report reviewed. See report below: NAME: YOKASTA BALDWIN MED REC#: [id number] PT STATUS: REG ER : 1945 PHYSICIAN: BHAKTI CRUZ MD ADMIT DATE: 05/08/21/ER Signed Date of Exam:05/08/21 CHEST 1 VIEW, AP/PA ONLY Indication: Altered mental status Portable chest 5:22 PM Heart size and pulmonary vascularity are normal. Lungs are clear. There are no effusions or pneumothoraces. IMPRESSION: Negative chest Dictated by: Dictated on workstation # [id number] Dict: 05/08/211719 Trans: 05/08/211720 TCB [id number] Interpreted by: VIDHYA BAUMAN MD Electronically signed by: VIDHYA BAUMAN MD 05/08/211720 Diagonstic Imaging: Xray Plain Films/CT/US/NM/MRI: elbow Comments Left elbow x-ray viewed by me and report reviewed. See report below: NAME: YOKASTA BALDWIN MED REC#: [id number] PT STATUS: REG ER : 1945 PHYSICIAN: BHAKTI CRUZ MD ADMIT DATE: 05/08/21/ER Signed Date of Exam:05/08/21 ELBOW, LEFT, 3 VIEWS INDICATION: Left elbow injury from a fall. EXAM: Three views left elbow. FINDINGS: Three views of the left elbow show no fracture, dislocation or pathologic effusion. IMPRESSION: Negative left elbow. Dictated by: Dictated on workstation # [id number] Dict: 05/08/21 1844 Trans: 05/08/211851 [facility] [id number] Interpreted by: VIDHYA BAUMAN MD Electronically signed by: VIDHYA BAUMAN MD 05/08/211851 Diagonstic Imaging: Xray Plain Films/CT/US/NM/MRI: pelvis, hip Comments X-ray hip and pelvis viewed by me and report reviewed. See report below: NAME: YOKASTA BALDWIN [facility] REC#: [id number] PT STATUS: REG ER : 1945 PHYSICIAN: BHAKTI CRUZ MD ADMIT DATE: 05/08/21/ER Signed Date of Exam:05/08/21 PELVIS WITH LEFT HIP 2-3 VIEWS INDICATION: Left hip injury from a fall. EXAM: AP view pelvis and 2 views left hip. FINDINGS: AP view pelvis and 2 views of the left hip show no fracture or dislocation. IMPRESSION: Unremarkable pelvis and left hip. Dictated by: Dictated on workstation # [id number] Dict: 05/08/21 184 Trans: 05/08/211851 [facility] [id number] Interpreted by: VIDHYA BAUMAN MD Electronically signed by: VIDHYA BAUMAN MD 05/08/211851 (BHAKTI CRUZ MD) Comments CTA HEAD/NECK--PER RADIOLOGIST REPORT AT 2153 INDICATION: Transient ischemic attack with left weakness and facial droop as well as slurred speech There is a normal three-vessel branching pattern arising from the aortic arch, however, there is dense atherosclerotic calcification at the origins of left common carotid artery and left subclavian artery. Common carotid arteries are patent bilaterally in the neck with dense atherosclerotic calcification resulting in high-grade stenoses at the origins of internal carotid arteries bilaterally. Remainder of internal carotid arteries are tortuous. Both vertebral arteries are patent with left vertebral arterial dominance. Basilar artery demonstrates moderate focal stenosis in its midportion but is otherwise intact. There is mild to moderate atherosclerotic calcification within the cavernous portions of both internal carotid arteries. Anterior, middle and posterior cerebral arteries are patent. There is mass effect upon the left middle cerebral artery secondary to dural based mass in the anterior aspect of middle cranial fossa. There is associated hyperostosis adjacent to this mass highly suggestive of meningioma. There is no evidence of significant stenosis, occlusion or filling defect. IMPRESSION: Extensive atherosclerotic calcification at the origins of internal carotid arteries resulting in high-grade stenoses, bilaterally. There is also atherosclerotic calcification within the cavernous portions of internal carotid arteries and moderate focal stenosis within the midportion of the basilar artery. There is no evidence of large vessel occlusion, filling defect or significant stenosis intracranially. Note is made of approximately 4 cm mass in the anterior left middle cranial fossa which likely represents meningioma. Reviewed: Reviewed by Me (PAYAL BARDALES DO) Departure Communication (Admissions) 2114--ASSUMED CARE FROM DR. CRUZ, CT RESULTS PENDING. 2118--RECEIVED CALL FROM , THEY HAVE RECEIVED IMAGES, AND HAVE BEEN REVIEWED BY DR. BATEMAN, AND HE HAS ACCEPTED PT FOR TRANSFER TO [facility]. THEY ADVISE A LITER OF FLUIDS AND ASPIRIN AND PLAVIX IF PT HAS NOT ALREADY TAKEN IT TODAY --CONFIRMED THAT PT HAS TAKEN BOTH HIS ASPIRIN AND PLAVIX TODAY. 2124--SPOKE WITH DR. SHEETS AND UPDATED HIM ON CONDITION OF PT AND ADVISED OF TRANSFER (PAYAL BARDALES DO) Impression Primary Impression: TIA (transient ischemic attack) Additional Impressions: Left-sided weakness Meningioma Frequent falls Abrasion of great toe, right, infected Qualified Codes: S90.411A - Abrasion, right great toe, initial encounter; L08.9 - Local infection of the skin and subcutaneous tissue, unspecified Carotid stenosis Qualified Codes: I65.23 - Occlusion and stenosis of bilateral carotid arteries Disposition: XF [facility], [facility] Condition: Improved Transfer Transfer Reason: Exceeds level of care Time Spoke to Accepting Phy: 21:19 Transfer Facility: Method of Transfer: EMS (PAYAL BARDALES DO) Departure-Patient Inst. Referrals: NO,LOCAL PHYSICIAN (PCP) Primary Care Physician INGRIS GUTIÉRREZ (Family) Primary Care Physician BHAKTI CRUZ MD May 08, 2021 18:28 PAYAL BARDALES DO May 08, 2021 21:49
[2021-05-08] MEDS ORDERED: fentaNYL INJ 100 MCG/2 ML AMP IVP ONE ×2 (18:30→20:30)
[2021-05-08] MEDS ORDERED: ONDANSETRON 4 MG/2 ML (SDV) Z0FRAN IVP ONE (18:30)
--- NOTE | 2021-05-08 18:48 | Diagnostic Imaging Report ---
INDICATION: Left elbow injury from a fall. EXAM: Three views left elbow. FINDINGS: Three views of the left elbow show no fracture, dislocation or pathologic effusion. IMPRESSION: Negative left elbow. Dictated by: Dictated on workstation # [id number]
--- NOTE | 2021-05-08 18:49 | Diagnostic Imaging Report ---
INDICATION: Left hip injury from a fall. EXAM: AP view pelvis and 2 views left hip. FINDINGS: AP view pelvis and 2 views of the left hip show no fracture or dislocation. IMPRESSION: Unremarkable pelvis and left hip. Dictated by: Dictated on workstation # [id number]
[2021-05-08] MEDS ORDERED: NS 100 ML (IVPB) BAG IV ONE (20:30)
[2021-05-08] MEDS ORDERED: HOLD METFORMIN - RECEIVED CONTRAST 20 ML VIAL IV SCH (20:30)
[2021-05-08] MEDS ORDERED: IOHEXOL 350 MG/ML 150 ML (OMNIPAQUE 350) VIAL IV ONE (20:30)
[2021-05-08] MEDS ORDERED: CATHETER FLUSH 10 ML SYR IV PRN (20:30)
--- NOTE | 2021-05-08 21:13 | Diagnostic Imaging Report ---
PROCEDURE: CT angiography of the head and CT angiography of the neck with and without contrast. TECHNIQUE: Contiguous noncontrast images were obtained from the skull base through the vertex. After intravenous contrast administration, helical CT angiography of the neck was performed. Source data was reformatted into 3D MIP projections. Delayed post contrast acquisition was also obtained. Auto Exposure Controls were utilized during the CT exam to meet ALARA standards for radiation dose reduction. INDICATION: Transient ischemic attack with left weakness and facial droop as well as slurred speech There is a normal three-vessel branching pattern arising from the aortic arch, however, there is dense atherosclerotic calcification at the origins of left common carotid artery and left subclavian artery. Common carotid arteries are patent bilaterally in the neck with dense atherosclerotic calcification resulting in high-grade stenoses at the origins of internal carotid arteries bilaterally. Remainder of internal carotid arteries are tortuous. Both vertebral arteries are patent with left vertebral arterial dominance. Basilar artery demonstrates moderate focal stenosis in its midportion but is otherwise intact. There is mild to moderate atherosclerotic calcification within the cavernous portions of both internal carotid arteries. Anterior, middle and posterior cerebral arteries are patent. There is mass effect upon the left middle cerebral artery secondary to dural based mass in the anterior aspect of middle cranial fossa. There is associated hyperostosis adjacent to this mass highly suggestive of meningioma. There is no evidence of significant stenosis, occlusion or filling defect. IMPRESSION: Extensive atherosclerotic calcification at the origins of internal carotid arteries resulting in high-grade stenoses, bilaterally. There is also atherosclerotic calcification within the cavernous portions of internal carotid arteries and moderate focal stenosis within the midportion of the basilar artery. There is no evidence of large vessel occlusion, filling defect or significant stenosis intracranially. Note is made of approximately 4 cm mass in the anterior left middle cranial fossa which likely represents meningioma. Dictated by: Dictated on workstation # [id number]
[2021-05-08] MEDS ORDERED: LACTATED RINGERS 1,000 ML IV ONE (22:00)
--- NOTE | 2021-05-08 22:06 | Diagnostic Imaging Report ---
INDICATION: Transient ischemic attack Cerebral perfusion is performed with CT imaging. Calculated Tmax times do appear to be prolonged throughout the right cerebral hemisphere. Source images do not confirm this finding and there is no evidence of reduced cerebral blood flow. Correlation with CTA also reveals no evidence of focal stenosis or large vessel occlusion. There is hyperenhancement within presumed meningioma in the left middle cranial fossa which may contribute to artifact. IMPRESSION: No convincing CTA perfusion evidence of acute ischemia or infarct. Dictated by: Dictated on workstation # [id number]
== END 2021-05-08 22:49 | disposition short-term general hospital (02) ==
LOC: EDUNIT# 16:29 → ER 16:29
DX: S90.411A Abrasion, right great toe, initial encounter (principal); L08.9 Local infection of the skin and subcutaneous tissue, unspecified; G45.9 Transient cerebral ischemic attack, unspecified; R29.6 Repeated falls; D32.9 Benign neoplasm of meninges, unspecified; Z87.891 Personal history of nicotine dependence
CPT/HCPCS: 0042T; 70450; 70496; 70498; 71045; 73080; 73502; 80053; 84484; 85025; 85379; 85610; 85730; 93005; 93041; 99285; 36415

== ENCOUNTER 2022-01-22 10:09 | Observation (INO) | payer MEDICARE, MEDICAID ==
[~2022-01-22] VITALS: Ht 180 cm; Wt 105.0 kg
[~2022-01-22 10:09] MED LIST changes: +POTA-177 PO; -POTA10TA37 PO; +SIMV-332 PO; -SIMV10TA PO
--- NOTE | 2022-01-22 10:40 | ED General ---
General Chief Complaint: Altered Mental Status Stated Complaint: CONFUSION Nursing Triage Note: pt to rm 8 by cr co ems with cc of increased confusion, hx of brain ca Source of Information: Patient Exam Limitations: No Limitations History of Present Illness Date Seen by Provider: Jan 22, 2022 Time Seen by Provider: 10:35 Initial Comments Patient is a 76-year-old male who presents emergency department by EMS chief complaint of "confusion". is at home wheelchair-bound status and is unable to be present for HPI, review of systems, past medical history. I did however talk to her on the phone shortly after the patient's arrival. Patient himself is complaining of some right hip pain that has been coming and going from moving time. He states that he has been having some falls at home. He cannot really give ride why or how the falls happen. No falls with morning. He has no complaints other than a mild headache, He is disoriented to location, year, month and holiday season. He has no complaints of vision change, chest pain, abdominal pain. No SOB, N/V/D. He states he is having some dysuria - but it has been present "for about 15 years". No extremity pain currently. No numbness, weakness or tingling. He states he didnt sleep well last night. No fevers that he is aware of. Pleasantly conversational but is a little confused. Quite hypertensive on arrival - BP systolic is 210. diastolic 125. Not tachy, not febrile. Grossly normal neuro exam. I did speak to the at length shortly after the patient's arrival. She states that as of Saturday he started having "tumor headaches". He has had some Tylenol and some leftover hydrocodone for the headaches. He has been complaining of a little bit of low back pain and his is noticed that his urine is much darker than normal and appears to have an odor. 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 He was recently taken off his Plavix as well as one of his blood pressure medications. states that he normally is actually disoriented to month and year and holiday season. He has taken some Xanax in the past for agitation and anxiety but has not had any in the last 48 hours nor has he had any hydrocodone. Also has not had any of his normal morning medications. reports no concern for injury this morning. She is just very concerned that he has been acting more confused than usual. She was concerned about the "tumor" which is a meningioma, and his brain causing swelling. His neurosurgeon at is Dr. Skaggs, formally Dr. Santiago who has since transferred hospitals Timing/Duration: 4-5 Days Severity: Moderate Associated Systoms: Headaches Allergies and Home Medications Allergies Coded Allergies: meperidine (Verified Allergy, Severe, Mental Confusion, 07/16/18) Patient Home Medication List Home Medication List Reviewed: Yes Acetaminophen (Tylenol Extra Strength) 500 Mg Tablet, 1,000 MG PO DAILY PRN for PAIN-MILD, (Reported) Entered as Reported by: LISANDRO COFFMAN on 07/18/18 0857 Alprazolam (Xanax) 0.5 Mg Tablet, 0.5 MG PO TID PRN for ANXIETY, (Reported) Entered as Reported by: FILOMENA BAZZI on 04/30/18 1209 Benazepril HCl (Benazepril HCl) 5 Mg Tablet, 5 MG PO DAILY, (Reported) Entered as Reported by: FILOMENA BAZZI on 04/30/18 1209 Bethanechol Chloride (Urecholine) 25 Mg Tablet, 50 MG PO ACHS, (Reported) Entered as Reported by: FILOMENA BAZZI on 08/04/18 1449 Cefdinir (Cefdinir) 300 Mg Capsule, 300 MG PO BID Prescribed by: PAYAL BARDALES on 09/25/20 2352 Clotrimazole/Betamethasone Dip (Clotrimazole-Betamethasone Crm) 15 Gm Cream..g., 15 GM TP BID Prescribed by: BHAKTI OLIVAREZ on 05/04/21 0146 Escitalopram Oxalate (Lexapro) 10 Mg Tablet, 10 MG PO HS, (Reported) Entered as Reported by: FILOMENA BAZZI on 04/30/18 1209 Hydrocodone/Acetaminophen (Lorcet 5-325 mg Tablet) 1 Each Tablet, 1 EACH PO Q4- 6HR PRN for PAIN-MODERATE Prescribed by: ELYSIA HAYS on 10/09/19 1442 Insulin NPH Hum/Reg Insulin Hm (Humulin 70-30 Vial) 100 Unit/1 Ml Vial, 80 UNITS SC BID, (Reported) Entered as Reported by: LISANDRO COFFMAN on 07/18/18 0857 Magnesium Oxide (Magnesium Oxide) 400 Mg Tablet, 400 MG PO BID Prescribed by: BHAKTI OLIVAREZ on 05/04/21 0146 Mupirocin (Mupirocin) 22 Gm Oint...g., 22 GM TP BID Prescribed by: BHAKTI OLIVAREZ on 05/04/21 0146 Neomycin Tillman/Bacitrac Zn/Poly (Neosporin Ointment) 28.3 Gm Oint...g., TP TID, (Reported) Entered as Reported by: LISANDRO COFFMAN on 07/18/18 0857 Pantoprazole Sodium (Pantoprazole Sodium) 40 Mg Tablet.dr, 40 MG PO DAILY, (Reported) Entered as Reported by: FILOMENA BAZZI on 04/30/18 1209 Phenazopyridine HCl (Pyridium) 200 Mg Tablet, 1 TAB PO TID Prescribed by: PAYAL BARDALES on 09/25/20 2352 Potassium Chloride (Potassium Chloride) 10 Meq Tablet.er, 10 MEQ PO DAILY, (Reported) Entered as Reported by: LISANDRO COFFMAN on 07/18/18 0846 Simvastatin (Simvastatin) 20 Mg Tablet, 10 MG PO HS, (Reported) Entered as Reported by: LISANDRO COFFMAN on 07/18/18 0857 Tamsulosin HCl (Flomax) 0.4 Mg Cap, 0.4 MG PO BID, (Reported) Entered as Reported by: FILOMENA BAZZI on 08/04/18 1449 Review of Systems Review of Systems Constitutional: see HPI EENTM: no symptoms reported Respiratory: no symptoms reported Cardiovascular: no symptoms reported Gastrointestinal: no symptoms reported Genitourinary: dysuria Musculoskeletal: joint pain (right hip) Skin: no symptoms reported Psychiatric/Neurological: No Symptoms Reported All Other Systems Reviewed Negative Unless Noted: Yes Past Frcvmbd-Mckvmx-Mirayw Hx Patient Social History Tobacco Use?: Yes Tobacco type used: Cigarettes Substance use?: No Alcohol Use?: No Immunizations Up To Date Tetanus Booster (TDap): Unknown PED Vaccines UTD: No First/Initial COVID19 Vaccinat: 2020 Second COVID19 Vaccination Tony: 2020 Third COVID19 Vaccination Date: 2020 Seasonal Allergies Seasonal Allergies: No Past Medical History Surgery/Hospitalization HX: CARDAIC CATHS WITH STENTS X 7, TURP FOR PROSTATE CANCER, CATARACT SURGERY, tia, brain tumor Surgeries: Yes (7 stents) Coronary Stent, Eye Surgery, Prostatectomy, Transurethral Resection Respiratory: Yes (oxygen at hs) COPD Currently Using CPAP: No Currently Using BIPAP: No Cardiac: Yes (STENTS X 7) Coronary Artery Disease, Heart Attack, High Cholesterol, Hypertension Neurological: Yes Brain Tumor, Headaches /Migraines, Vertigo Reproductive Disorders: No Genitourinary: Yes (PROSTATE CANCER; CHRONIC INCONTINENCE; HX RETENTINON) Prostate Problems Gastrointestinal: Yes Gastroesophageal Reflux Musculoskeletal: Yes Arthritis, Fractures Endocrine: Yes Diabetes, Insulin dep HEENT: Yes Cataract Cancer: Yes (lip) Prostate, Skin Did You Recieve Any Treatments: Yes What Type of Treatment Did You: Radiation, Surgical Intervention Psychosocial: No Integumentary: No Blood Disorders: No Adverse Reaction/Blood Tranf: No Family Medical History Patient reports no known family medical history. No Pertinent Family Hx Physical Exam Vital Signs Vital Signs - First Documented 01/22/22 10:14 Temp 36.0 Pulse 82 Resp 18 B/P (MAP) 198/108 (138) O2 Delivery Room Air Capillary Refill : Less Than 3 Seconds Height, Weight, BMI Height: 6'0" Weight: 245lbs. 0.0oz. 111.926424bv; 32.00 BMI Method:Stated General Appearance: No Apparent Distress, WD/WN, Other (pleasant and smiling) Eyes: Bilateral Eye Normal Inspection, Bilateral Eye PERRL, Bilateral Eye EOMI HEENT: PERRL/EOMI, Pharynx Normal Neck: Normal Inspection Respiratory: Lungs Clear, Normal Breath Sounds, No Accessory Muscle Use, No Respiratory Distress Cardiovascular: Regular Rate, Rhythm Gastrointestinal: Non Tender, Soft Extremity: Normal Capillary Refill, Normal Inspection Neurologic/Psychiatric: Alert, No Motor/Sensory Deficits, Normal Mood/Affect, patient account liaison II-XII Norm as Tested, Disoriented Skin: Normal Color, Warm/Dry Progress/Results/Core Measures Suspected Sepsis SIRS Temperature: Pulse: 82 Respiratory Rate: 18 Laboratory Tests 01/22/22 10:24: White Blood Count 7.7 Blood Pressure 198 /108 Mean: 138 Laboratory Tests 01/22/22 10:24: Creatinine 0.95, Platelet Count 271, Total Bilirubin 1.1H Results/Orders Lab Results Laboratory Tests Test 01/22/22 10:24 01/22/22 10:30 Range/Units White Blood Count 7.7 4.3-11.0 10^3/uL Red Blood Count 5.42 4.30-5.52 10^6/uL Hemoglobin 15.6 13.3-17.7 g/dL Hematocrit 47 40-54 % Mean Corpuscular Volume 86 80-99 fL Mean Corpuscular Hemoglobin 29 25-34 pg Mean Corpuscular Hemoglobin Concent 34 32-36 g/dL Red Cell Distribution Width 13.5 10.0-14.5 % Platelet Count 271 130-400 10^3/uL Mean Platelet Volume 10.5 9.0-12.2 fL Immature Granulocyte % (Auto) 0 % Neutrophils (%) (Auto) 74 42-75 % Lymphocytes (%) (Auto) 14 12-44 % Monocytes (%) (Auto) 10 0-12 % Eosinophils (%) (Auto) 1 0-10 % Basophils (%) (Auto) 1 0-10 % Neutrophils # (Auto) 5.7 1.8-7.8 10^3/uL Lymphocytes # (Auto) 1.1 1.0-4.0 10^3/uL Monocytes # (Auto) 0.7 0.0-1.0 10^3/uL Eosinophils # (Auto) 0.1 0.0-0.3 10^3/uL Basophils # (Auto) 0.0 0.0-0.1 10^3/uL Immature Granulocyte # (Auto) 0.0 0.0-0.1 10^3/uL Sodium Level 139 135-145 MMOL/L Potassium Level 3.0 L 3.6-5.0 MMOL/L Chloride Level 93 L 98-107 MMOL/L Carbon Dioxide Level 31 21-32 MMOL/L Anion Gap 15 H 5-14 MMOL/L Blood Urea Nitrogen 12 7-18 MG/DL Creatinine 0.95 0.60-1.30 MG/DL Estimat Glomerular Filtration Rate 83 BUN/Creatinine Ratio 13 Glucose Level 90 70-105 MG/DL Calcium Level 9.0 8.5-10.1 MG/DL Corrected Calcium 9.3 8.5-10.1 MG/DL Total Bilirubin 1.1 H 0.1-1.0 MG/DL Aspartate Amino Transf (AST/SGOT) 26 5-34 U/L Alanine Aminotransferase (ALT/SGPT) 16 0-55 U/L Alkaline Phosphatase 105 40-136 U/L Total Protein 6.5 6.4-8.2 GM/DL Albumin 3.6 3.2-4.5 GM/DL Urine Color YELLOW Urine Clarity SL CLOUDY Urine pH 6.0 5-9 Urine Specific Dawn 1.025 H 1.016-1.022 Urine Protein 3+ H NEGATIVE Urine Glucose (UA) 3+ H NEGATIVE Urine Ketones TRACE H NEGATIVE Urine Nitrite NEGATIVE NEGATIVE Urine Bilirubin NEGATIVE NEGATIVE Urine Urobilinogen 2.0 < = 1.0 MG/DL Urine Leukocyte Esterase NEGATIVE NEGATIVE Urine RBC (Auto) 2+ H NEGATIVE Urine RBC 5-10 H /HPF Urine WBC 2-5 /HPF Urine Squamous Epithelial Cells 2-5 /HPF Urine Crystals PRESENT H /LPF Urine Amorphous Sediment FEW JAMI URATES H /LPF Urine Bacteria FEW H /HPF Urine Casts PRESENT /LPF Urine Granular Casts 0-2 H /LPF Urine Mucus NEGATIVE /LPF Urine Culture Indicated YES My Orders Orders - JOSE MURPHY MD Ed Iv/Invasive Line Start (01/22/22 10:43) Cbc With Automated Diff (01/22/22 10:43) Comprehensive Metabolic Panel (01/22/22 10:43) Ua Culture If Indicated (01/22/22 10:43) Ct Head Wo (01/22/22 10:43) Urine Culture (01/22/22 10:30) Aspirin Chewable Tablet (Baby Aspirin Ch (01/22/22 12:30) Labetalol Injection (Normodyne Injection (01/22/22 12:30) Medications Given in ED Current Medications Medications Dose Ordered Sig/Sylvie Route Start Time Stop Time Status Last Admin Dose Admin Aspirin 81 mg ONCE ONCE PO 01/22/22 12:30 01/22/22 12:31 DC 01/22/22 12:35 81 MG Labetalol HCl 20 mg ONCE ONCE IV 01/22/22 12:30 01/22/22 12:31 DC 01/22/22 12:35 20 MG Vital Signs/I&O 01/22/22 10:14 Temp 36.0 Pulse 82 Resp 18 B/P (MAP) 198/108 (138) O2 Delivery Room Air Capillary Refill : Less Than 3 Seconds Blood Pressure Mean: 138 Progress Note : Time: 13:25 Progress Note Discussed case with Dr. Vogt after reviewing CT, basic laboratory studies. Patient is pleasantly confused with no gross focal motor neurodeficits. His labs are relatively unremarkable. CT shows approximately the same measurements of the mass may be very minimally enlarged. Same amount of mass-effect. I did give him 20 mg of Lopressor for his blood pressure. His systolic is down to 165 diastolic 100. He does not really have any interest in pursuing craniotomy to remove the meningioma. I did talk with him at length about the risks of letting this go on and worsening mass-effect and affecting his ability to take care of himself and his . I talked with him about staying in the hospital related to his blood pressure and he does not really want to stay. I spoke with Dr. Winn on-call with neurosurgery. She also stated she did not believe that and her review of the CT from today comparison with met MRI earlier in the year that his increasing confusion is related to any change in the mass. She states she would be happy to have him come back to clinic for reevaluation and further discussion for meningioma removal. Patient's blood pressure at this time 1328 is actually back up to 187/109. I strongly encouraged him to stay the night so that we could further modify his blood pressure and make him feel better. He is agreeable. I will discuss with his Diagnostic Imaging Diagonstic Imaging: CT Comments [facility], [place] NAME: YOKASTA BALDWIN [facility] REC#: [id number] PT STATUS: REG ER : 1945 PHYSICIAN: JOSE MURPHY MD ADMIT DATE: 01/22/22/ER Draft Date of Exam:01/22/22 CT HEAD WO PROCEDURE: CT head without contrast. TECHNIQUE: Multiple contiguous axial images were obtained through the brain without the use of intravenous contrast. Auto Exposure Controls were utilized during the CT exam to meet ALARA standards for radiation dose reduction. INDICATION: Altered mental status. Known intracranial meningioma. COMPARISON: CT head dated 05/08/2021. FINDINGS: Again identified is peripherally calcified soft tissue mass within the anterior left middle cranial fossa. This has been shown to be extra-axial on prior MRI. Lesion measures 2.7 x 3.9 cm on this exam. This is in comparison to 2.2 x 3.3 cm on previous MRI dated 08/04/2012. There is persistent edema of the adjacent deep white matter of the left temporal lobe as well as persistent localized mass effect on the anterior margins of the left temporal lobe. No intra or extra-axial intracranial hemorrhage is seen. Ventricles and cortical sulci are otherwise diffusely prominent consistent with underlying age-related parenchymal volume loss. There is no new mass effect or midline shift. There is no new large area of loss of normal martinez-white matter junction differentiation to suggest evolving acute territorial infarct. Scattered patchy and confluent areas of diminished attenuation within the deep white matter also again identified and are consistent with chronic small vessel ischemic changes. Bony calvarium is intact. Visualized portions of paranasal sinuses and mastoid air cells are unremarkable. IMPRESSION: 1. Redemonstration stable extra-axial mass of the anterior left middle cranial fossa. 2. No new acute intracranial abnormality. No CT evidence of acute infarct or intracranial hemorrhage. 3. Background age-related parenchymal volume loss and chronic small vessel ischemic changes in the deep white matter. Dictated on workstation # [id number] Dict: 01/22/22 1119 Trans: 01/22/22 1126 [facility] [id number] Interpreted by: PAVAN GARCIA MD Electronically signed by: Departure Impression Primary Impression: Hypertensive urgency Additional Impressions: Confusion Meningioma, cerebral Disposition: ADMITTED INPATIENT Condition: Stable Admissions Decision to Admit Reason: Admit from ER (General) Decision to Admit/Date: Jan 22, 2022 Time/Decision to Admit Time: 13:29 Departure-Patient Inst. Referrals: NO,LOCAL PHYSICIAN (PCP) Primary Care Physician INGRIS GUTIÉRREZ (Family) Primary Care Physician JOSE MURPHY MD Jan 22, 2022 10:40
[2022-01-22 11:04] LABS: BASOPHILS % (AUTO) 1 % (0-10); EOSINOPHILS # (AUTO) 0.1 10^3/uL (0.0-0.3); EOSINOPHILS % (AUTO) 1 % (0-10); HEMATOCRIT 47 % (40-54); HEMOGLOBIN 15.6 g/dL (13.3-17.7); LYMPHOCYTES # (AUTO) 1.1 10^3/uL (1.0-4.0); LYMPHOCYTES % (AUTO) 14 % (12-44); MEAN CORPUSCULAR HEMOGLOBIN 29 pg (25-34); MEAN CORPUSCULAR HGB CONC 34 g/dL (32-36); MEAN CORPUSCULAR VOLUME 86 fL (80-99); MEAN PLATELET VOLUME 10.5 fL (9.0-12.2); MONOCYTES # (AUTO) 0.7 10^3/uL (0.0-1.0); MONOCYTES % (AUTO) 10 % (0-12); NEUTROPHILS # (AUTO) 5.7 10^3/uL (1.8-7.8); NEUTROPHILS % (AUTO) 74 % (42-75); PLATELET COUNT 271 10^3/uL (130-400); WHITE BLOOD COUNT 7.7 10^3/uL (4.3-11.0)
[2022-01-22 11:09] LABS: ALBUMIN 3.6 GM/DL (3.2-4.5)
[2022-01-22 11:11] LABS: TOTAL PROTEIN 6.5 GM/DL (6.4-8.2)
[2022-01-22 11:13] LABS: BILIRUBIN,TOTAL 1.1 MG/DL (0.1-1.0)
[2022-01-22 11:15] LABS: CREATININE SERUM 0.95 MG/DL (0.60-1.30)
--- NOTE | 2022-01-22 11:26 | Diagnostic Imaging Report ---
PROCEDURE: CT head without contrast. TECHNIQUE: Multiple contiguous axial images were obtained through the brain without the use of intravenous contrast. Auto Exposure Controls were utilized during the CT exam to meet ALARA standards for radiation dose reduction. INDICATION: Altered mental status. Known intracranial meningioma. COMPARISON: CT head dated 05/08/2021. FINDINGS: Again identified is peripherally calcified soft tissue mass within the anterior left middle cranial fossa. This has been shown to be extra-axial on prior MRI. Lesion measures 2.7 x 3.9 cm on this exam. This is in comparison to 2.2 x 3.3 cm on previous MRI dated 08/04/2012. There is persistent edema of the adjacent deep white matter of the left temporal lobe as well as persistent localized mass effect on the anterior margins of the left temporal lobe. No intra or extra-axial intracranial hemorrhage is seen. Ventricles and cortical sulci are otherwise diffusely prominent consistent with underlying age-related parenchymal volume loss. There is no new mass effect or midline shift. There is no new large area of loss of normal martinez-white matter junction differentiation to suggest evolving acute territorial infarct. Scattered patchy and confluent areas of diminished attenuation within the deep white matter also again identified and are consistent with chronic small vessel ischemic changes. Bony calvarium is intact. Visualized portions of paranasal sinuses and mastoid air cells are unremarkable. IMPRESSION: 1. Redemonstration stable extra-axial mass of the anterior left middle cranial fossa. 2. No new acute intracranial abnormality. No CT evidence of acute infarct or intracranial hemorrhage. 3. Background age-related parenchymal volume loss and chronic small vessel ischemic changes in the deep white matter. Dictated by: Dictated on workstation # [id number]
[2022-01-22 11:43] LABS: BILIRUBIN,URINE NEGATIVE (NEGATIVE); CLARITY,URINE SL CLOUDY; COLOR,URINE YELLOW; GLUCOSE, URINE (UA) 3+ (NEGATIVE); KETONES,URINE TRACE (NEGATIVE); LEUKOCYTE ESTERASE ,URINE NEGATIVE (NEGATIVE); NITRITE,URINE NEGATIVE (NEGATIVE); PROTEIN,URINE 3+ (NEGATIVE)
[2022-01-22 11:48] LABS: AMORPHOUS SEDIMENT,UR FEW AMOR URATES /LPF; BACTERIA,URINE FEW /HPF; GRANULAR CASTS,URINE 0-2 /LPF
[2022-01-22] MEDS ORDERED: ASPIRIN 81 MG CHEW (CHILDREN'S ASA) PO ONE (12:30)
[2022-01-22] MEDS ORDERED: LABETALOL HCL 20 MG/4 ML VIAL IV ONE (12:30)
[2022-01-22] MEDS ORDERED: diphenhydrAMINE 25 MG TAB (BENADRYL) PO PRN (14:45)
[2022-01-22] MEDS ORDERED: polyethylene glycoL POWDER 17 GM (MIRALAX) PACK PO PRN (14:45)
[2022-01-22] MEDS ORDERED: ANTACID SUSP 30 ML UDC (MYLANTA) PO PRN (14:45)
[2022-01-22] MEDS ORDERED: ONDANSETRON 4 MG/2 ML (SDV) Z0FRAN IV PRN (14:45)
[2022-01-22] MEDS ORDERED: MILK OF MAGNESIA 400 MG/5 ML 30 ML UDC PO PRN (14:45)
[2022-01-22] MEDS ORDERED: BISACODYL 10 MG SUPP (DULCOLAX) PR PRN (14:45)
[2022-01-22] MEDS ORDERED: ONDANSETRON 4 MG (ZOFRAN) ORAL DISSOLVE TAB PO PRN (14:45)
[2022-01-22] MEDS ORDERED: LABETALOL HCL 20 MG/4 ML VIAL IV PRN (14:45)
[2022-01-22] MEDS ORDERED: LACTULOSE SYRUP 10GM/15ML (ENULOSE) 30ML UDC PO PRN (14:45)
[2022-01-22] MEDS ORDERED: diphenhydrAMINE 50 MG/ML INJ (BENADRYL) IVP PRN (14:45)
[2022-01-22] MEDS ORDERED: MELATONIN 3 MG TABLET PO PRN (14:45)
[2022-01-22] MEDS ORDERED: CALCIUM CARBONATE 500 MG (TUMS) TAB.CHEW PO PRN (14:45)
[2022-01-22] MEDS ORDERED: KCL 20 MEQ TAB (K-DUR) PO NR (15:00)
[2022-01-22] MEDS: metFORMIN 500 MG (GLUCOPHAGE) TAB PO SCH (15:33)
[2022-01-22] MEDS: ENOXAPARIN 40 MG/0.4 ML (LOVENOX) SYR SC SCH (15:34)
[2022-01-22] MEDS: ACETAMINOPHEN 325 MG TABLET PO PRN ×2 (15:34→23:00)
[2022-01-22] MEDS: ALPRAZolam 0.5 MG (XANAX) TAB PO PRN ×2 (15:34→23:00)
[2022-01-22] MEDS: inSUlin ASPART (NovoLOG) 1 UNIT/0.01 ML (CHARGE PER UNIT) SC SCH ×2 (15:34→20:19)
[2022-01-22] MEDS: hydrALAZINE (APESOLINE) 20 MG/ML VIAL IV PRN (15:56)
[2022-01-22 16:26] VITALS: BP 108/64
[2022-01-22 19:38] VITALS: BP 125/67
[2022-01-22] MEDS: DOCUSATE SODIUM 100 MG (COLACE) CAP PO SCH (20:18)
[2022-01-22] MEDS: SENNOSIDES 8.6 MG (SENOKOT) TAB PO SCH (20:18)
[2022-01-22 23:39] VITALS: BP 209/102
[2022-01-23] MEDS: hydrALAZINE (APESOLINE) 20 MG/ML VIAL IV PRN ×2 (00:05→04:10)
[2022-01-23 03:50] VITALS: BP 191/118
[2022-01-23 05:30] VITALS: BP_SYST 180; BP_SYST 191; BP_DIAS 83; BP_DIAS 90
[2022-01-23] MEDS: inSUlin ASPART (NovoLOG) 1 UNIT/0.01 ML (CHARGE PER UNIT) SC SCH ×3 (05:38→16:12)
[2022-01-23] MEDS: ACETAMINOPHEN 325 MG TABLET PO PRN ×2 (06:06→11:06)
[2022-01-23] MEDS: metFORMIN 500 MG (GLUCOPHAGE) TAB PO SCH ×2 (06:07→16:45)
[2022-01-23 07:02] VITALS: BP 169/85
[2022-01-23] MEDS: SENNOSIDES 8.6 MG (SENOKOT) TAB PO SCH (07:38)
[2022-01-23] MEDS: DOCUSATE SODIUM 100 MG (COLACE) CAP PO SCH (07:38)
[2022-01-23] MEDS ORDERED: lisINopril 20 MG (PRINIVIL) TABLET PO SCH (09:00)
[2022-01-23] MEDS ORDERED: PANTOPRAZOLE 40 MG (PROTONIX) TAB PO SCH (09:00)
[2022-01-23 09:57] LABS: POTASSIUM 3.3 MMOL/L (3.6-5.0)
[2022-01-23 09:58] LABS: CALCIUM 9.2 MG/DL (8.5-10.1)
[2022-01-23 10:03] LABS: CREATININE SERUM 0.97 MG/DL (0.60-1.30)
[2022-01-23 10:05] LABS: MAGNESIUM 1.2 MG/DL (1.6-2.4)
[2022-01-23 11:03] VITALS: BP 109/74
[2022-01-23] MEDS: ALPRAZolam 0.5 MG (XANAX) TAB PO PRN (11:05)
[2022-01-23] MEDS ORDERED: ATOR40TA70 PO (11:45)
[2022-01-23] MEDS ORDERED: IBUP-2473 PO (11:45)
[2022-01-23] MEDS ORDERED: LEVE750T5 PO (11:45)
[2022-01-23] MEDS ORDERED: MIRA50TA PO (11:45)
[2022-01-23] MEDS ORDERED: EMPA10TA PO (11:45)
[2022-01-23] MEDS ORDERED: METF-399 PO (11:45)
[2022-01-23] MEDS ORDERED: TRZ50T PO (11:45)
[2022-01-23] MEDS ORDERED: ASPI-1238 PO (11:45)
[2022-01-23] MEDS ORDERED: ESCI-2 PO (11:45)
[2022-01-23] MEDS ORDERED: HUM100VI SQ (11:45)
[2022-01-23] MEDS ORDERED: FLUT16SP22 NSEACH (11:45)
[2022-01-23] MEDS ORDERED: ALPR0.5T7 PO (11:45)
[2022-01-23] MEDS ORDERED: ACET-2267 PO (11:45)
[2022-01-23] MEDS ORDERED: BUDE10.26 INH (11:45)
--- NOTE | 2022-01-23 11:59 | Short Stay Summary-Hospitalist ---
STACI VAUGHN A MED STUDENT 01/23/22 1159: History of Present Illness HPI/Chief Complaint Tr is a 76 yo male who presented to ED on 01/22 for confusion and headache for the last 4 days. Pt has hx of HTN, meningioma, cardiac cath with multiple stent placements, TURP d/t prostate ca., TIA, CAD, HLD, insulin dependent diabetes, GERD and cataracts. Pt was found to have blood pressure of 209/102. Pt's provided hx for ED provider and stated the pt is always confused about the month, year and holiday d/t developmental delays and the fact that he cannot read or write. She reports he was recently taken off his blood pressure medication and Plavix at during f/u for meningioma. She and the pt live at home alone and have [facility] out of [employer] resource personal several times a week. She reports she manages his medications and he helps take care of her physically d/t her being wheelchair bound. She reports she became concerned when he started to get confused about whether the bedroom was the kitchen and she wanted him to seek medical care. CT head showed stable extra-axial mass on anterior left middle cranial fossa and age related white matter changes. Pt was admitted to general medical floor for HTN urgency and confusion. His blood pressure was controlled with lisinopril, hydralazine and labetalol. Pt's blood pressure on 01/23 was 169/85 and his confusion had improved. He was alert and oriented to self and place, but not time. According to pt he does not want to have the meningioma removed. Discussed at length with that pt is stable for discharge, but would benefit from home health for extra support. client services associate contacted and will assist with this. Will d/c pt home as he is at baseline level of confusion and BP is controlled. Advised to discuss cognitive testing with their PCP. Source: patient, family Date Seen 01/23/22 Time Seen by a Provider: 08:30 Attending Physician No,Local Physician PCP Admitting Physician: Luli Crowell MD Attending Physician: Luli Crowell MD Referring Physician Date of Admission Jan 22, 2022 at 13:35 Home Medications & Allergies Home Medications Reviewed patient Home Medication Reconciliation performed by pharmacy medication reconciliations cad technician and/or nursing. Patients Allergies have been reviewed. Allergies Allergies Coded Allergies meperidine (Verified Allergy, Severe, Mental Confusion, 07/16/18) Past Medical/Social/Family Hx Patient Social History Tobacco Use?: No Tobacco type used: Cigarettes Use of E-Cig and/or Vaping dev: No Substance use?: No Alcohol Use?: No Pt stated abuse/neglect: No Immunizations Up To Date Influenza Vaccine Up-to-Date: Yes; Up-to-Date First/Initial COVID19 Vaccinat: 2020 Second COVID19 Vaccination Tony: 2020 Tetanus Booster (TDap): Unknown Hepatitis A: No Hepatitis B: No TB Skin Test: None Date of Pneumonia Vaccine: Dec 02, 2017 Current Status Advance Directives: No Communicates: Verbally Primary Language: Dominican Preferred Spoken Language: Dominican Is interpretation needed?: No Sensory deficits: Vision impairment Implanted or Applied Medical D: Stents Review of Systems Constitutional: No chills, No fever EENTM: No blurred vision, No double vision Respiratory: No cough, No short of breath Cardiovascular: No chest pain, No palpitations Gastrointestinal: No diarrhea, No nausea, No vomiting Genitourinary: No dysuria, No frequency Musculoskeletal: No back pain, No joint swelling Skin: No lesions, No lumps, No rash Psychiatric/Neurological: Headache; Denies Numbness, Denies Weakness Physical Exam Physical Exam Vital Signs Vital Signs - First Documented 01/22/22 01/22/22 01/22/22 10:14 14:00 16:26 Temp 36.0 Pulse 82 Resp 18 B/P (MAP) 198/108 (138) Pulse Ox 94 O2 Delivery Room Air O2 Flow Rate 2.00 Capillary Refill : Less Than 3 Seconds Height, Weight, BMI Height: 6'0" Weight: 245lbs. 0.0oz. [id number]; 32.40 BMI Method:Stated General Appearance: No Apparent Distress, WD/WN, Other (pleasant and smiling) Eyes: Bilateral Eye Normal Inspection, Bilateral Eye PERRL, Bilateral Eye EOMI HEENT: PERRL/EOMI, Moist Mucous Membranes Neck: Full Range of Motion, Normal Inspection Respiratory: Lungs Clear, Normal Breath Sounds, No Accessory Muscle Use, No Respiratory Distress Cardiovascular: Regular Rate, Rhythm, No Murmur Gastrointestinal: Normal Bowel Sounds, Non Tender, Soft Extremity: Normal Capillary Refill, Normal Inspection, No Pedal Edema Neurologic/Psychiatric: Alert, No Motor/Sensory Deficits, Normal Mood/Affect, heel seat pounder II-XII Norm as Tested, Disoriented (alert to self and place but not time) Skin: Normal Color, Warm/Dry Results Results/Procedures Labs Laboratory Tests 01/22/22 10:24 01/23/22 09:36 Patient resulted labs reviewed. Short Stay Diagnosis Discharge Diagnosis-Short Stay Admission Diagnosis Confusion and HTN urgency Final Discharge Diagnosis Confusion and HTN urgency Conclusion Plan Confusion -F/u with PCP for cognitive evaluation -Pt back to baseline level of confusion -Will try to set up home health to assist with medications HTN urgency -Resolved -Will set up home health to help manage medications to avoid readmission for HTN Diagnosis/Problems Diagnosis/Problems (1) Diabetes mellitus Status: Chronic Assessment & Plan: Continue home medications Qualifiers: (2) Obesity Status: Chronic (3) Hypertensive urgency Onset Date: ~ 01/2022 Status: Acute Assessment & Plan: Take lisinopril as prescribed Home health to assist with medications to prevent readmission for HTN (4) Meningioma, cerebral Status: Chronic Assessment & Plan: Followed by MARY (5) Confusion Status: Chronic Assessment & Plan: F/u with PCP for cognitive evaluation LULI CROWELL MD 01/23/22 1639: History of Present Illness Source: patient, family Exam Limitations: no limitations Time Seen by a Provider: 10:45 Past Medical/Social/Family Hx Past Medical History HTN T2DM Meningioma Anxiety Family Medical History Family Hx: N/A Results Results/Procedures Imaging: Reviewed Imaging Report Short Stay Diagnosis Conclusion Plan Presented with confusion and admitted with HTN urgency. Case discussed with [facility] Neurosurgery and they did not believe these symptoms were related to meningioma. Patient does not want to have surgery. Treated with IV BP meds as needed. Started on Lisinopril. BP improved. Confusion improved. Returned to baseline. There is concern for underlying dementia. Needs follow up with PCP. Diagnosis/Problems Diagnosis/Problems (1) Hypertensive urgency Onset Date: ~ 01/2022 Status: Acute Assessment & Plan: Take lisinopril as prescribed. Home health offered to assist with medications to prevent readmission for HTN, family refused. (2) Diabetes mellitus Status: Chronic Assessment & Plan: Continue home medications Qualifiers: (3) Obesity Status: Chronic (4) Meningioma, cerebral Status: Chronic Assessment & Plan: Followed by MARY (5) Confusion Status: Chronic Assessment & Plan: F/u with PCP for cognitive evaluation Supervisory-Addendum Brief Verification & Attestation Participated in pt care: history, MDM, physical Personally performed: exam, history, MDM, supervision of care Care discussed with: Medical Student Procedures: n/a Results interpretation: Verified all documentation A medical student performed and documented this service in my presence. I reviewed and verified all information documented by the medical student and made modifications to such information, when appropriate. I personally performed the physical exam and medical decision making. STACI VAUGHN MED STUDENT Jan 23, 2022 11:59 LULI CROWELL MD Jan 23, 2022 16:39
[2022-01-23] MEDS ORDERED: LISI20TA26 PO (14:24)
[2022-01-23 15:06] VITALS: BP 177/84
[2022-01-23] MEDS: ENOXAPARIN 40 MG/0.4 ML (LOVENOX) SYR SC SCH (15:09)
[2022-01-23] MEDS ORDERED: MAGNESIUM OXIDE (MAG-OX)400 MG TAB PO NR (16:30)
[2022-01-23] MEDS ORDERED: MAGN400T7 PO (16:33)
[2022-01-23] MEDS ORDERED: KCL 20 MEQ TAB (K-DUR) PO NR (16:45)
== END 2022-01-23 17:00 | disposition home or self-care (01) ==
LOC: EDUNIT# 10:09 → ER 10:11 → UNDOADMOB 13:35 → 4TH 13:35 → UNDODISOB 01-23 17:00
PROVIDERS: ADMIT Internal Medicine; ATTEND Internal Medicine
DX: I16.0 Hypertensive urgency (principal); E11.9 Type 2 diabetes mellitus without complications; E66.9 Obesity, unspecified; D32.0 Benign neoplasm of cerebral meninges; Z85.841 Personal history of malignant neoplasm of brain; Z68.32 Body mass index [BMI] 32.0-32.9, adult
CPT/HCPCS: 70450; 80048; 80053; 81000; 82947 ×2; 83735; 85025; 87088; 94760; 96372; 96375 ×2; 96376; 99283; G0378; 36415

== ENCOUNTER 2022-01-24 22:06 | Inpatient (IN) | payer MEDICARE, MEDICAID ==
[~2022-01-24] VITALS: Ht 180 cm; Wt 104.3 kg
[~2022-01-24 22:06] MED LIST changes: +ALPR0.5T7 PO; +ASPI-1238 PO; +ATOR40TA70 PO; +BUDE10.26 INH; +CLOP-31 PO; -CLOP75TA69 PO; +EMPA10TA PO; +ESCI-2 PO; +FLUT16SP22 NSEACH; +HUM100VI SQ; +IBUP-2473 PO; +LEVE750T5 PO; +LISI20TA26 PO; +MAGN400T7 PO; +METF-399 PO; +MIRA50TA PO; +TRZ50T PO
[2022-01-24] MEDS ORDERED: D5 NS 1000 ML IV SOLUTION 1,000 ML IV ONE (22:15)
[2022-01-24] MEDS ORDERED: D5 NS 1000 ML IV SOLUTION 1,000 ML IV STA (22:29)
[2022-01-24 22:35] LABS: BASOPHILS # (AUTO) 0.1 10^3/uL (0.0-0.1); BASOPHILS % (AUTO) 1 % (0-10); EOSINOPHILS # (AUTO) 0.2 10^3/uL (0.0-0.3); EOSINOPHILS % (AUTO) 3 % (0-10); HEMATOCRIT 44 % (40-54); HEMOGLOBIN 14.8 g/dL (13.3-17.7); LYMPHOCYTES # (AUTO) 1.1 10^3/uL (1.0-4.0); LYMPHOCYTES % (AUTO) 15 % (12-44); MEAN CORPUSCULAR HEMOGLOBIN 29 pg (25-34); MEAN CORPUSCULAR HGB CONC 33 g/dL (32-36); MEAN CORPUSCULAR VOLUME 87 fL (80-99); MEAN PLATELET VOLUME 10.5 fL (9.0-12.2); MONOCYTES # (AUTO) 0.6 10^3/uL (0.0-1.0); MONOCYTES % (AUTO) 8 % (0-12); NEUTROPHILS # (AUTO) 5.3 10^3/uL (1.8-7.8); NEUTROPHILS % (AUTO) 73 % (42-75); PLATELET COUNT 261 10^3/uL (130-400); WHITE BLOOD COUNT 7.3 10^3/uL (4.3-11.0)
[2022-01-24 22:45] LABS: ALBUMIN 3.4 GM/DL (3.2-4.5)
[2022-01-24 22:47] LABS: CALCIUM 8.8 MG/DL (8.5-10.1)
[2022-01-24 22:48] LABS: TOTAL PROTEIN 5.8 GM/DL (6.4-8.2)
[2022-01-24 22:50] LABS: BILIRUBIN,TOTAL 0.6 MG/DL (0.1-1.0)
[2022-01-24 22:52] LABS: CREATININE SERUM 1.2 MG/DL (0.60-1.30)
--- NOTE | 2022-01-25 00:10 | ED General ---
General Chief Complaint: General Problems/Pain Stated Complaint: WEAKNESS Nursing Triage Note: PT TO ED BY EMS WITH C/O GENERALIZED WEAKNESS. EMS REPORTS THEY WERE CALLED FOR WEAKNESS AND INCREASED CONFUSION, BLOOD SUGAR WAS 44, EMS GAVE 25 MG D10 AND PT BECAME MORE RESPONSIVE. PT C/O GENERALIZED PAIN. EMS REPORTS PT FAMILY IS HOPING HE CAN BE ADMITTED FOR 72 HOURS WHILE THEY FIGURE OUT A PLAN FOR PT. Source of Information: Patient, EMS Exam Limitations: No Limitations History of Present Illness Date Seen by Provider: Jan 24, 2022 Time Seen by Provider: 22:20 Initial Comments Here by EMS with report of altered mental status. EMS reports that when they arrived on scene, patient's blood sugar was 44. They did initiate D10 and he became more responsive. 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 They state they are unable to care for him at home. Patient admits to weakness but otherwise is very poor historian. He states that he has had cough and sore throat for days and overall does not feel well but does not know more about his care than that. Patient apparently was given his insulin at home tonight but had not eaten per EMS. Timing/Duration: 1-3 Hours Severity: Moderate Associated Systoms: Cough; No Fever/Chills; Loss of Appetite; No Nausea/Vomiting, No Shortness of Air; Weakness Allergies and Home Medications Allergies Coded Allergies: meperidine (Verified Allergy, Severe, Mental Confusion, 07/16/18) Patient Home Medication List Home Medication List Reviewed: Yes Acetaminophen (Tylenol Extra Strength) 500 Mg Tablet, 1,000 MG PO Q8H PRN for PAIN-MILD (1-4), (Reported) Entered as Reported by: FERANNDO FULLER on 01/23/22 1145 Alprazolam (Alprazolam) 0.5 Mg Tablet, 0.5 MG PO TID, (Reported) Entered as Reported by: FERNANDO FULLER on 01/23/22 1145 Aspirin (Aspirin EC) 81 Mg Tablet.dr, 162 MG PO DAILY, (Reported) Entered as Reported by: FERNANDO FULLER on 01/23/22 1145 Atorvastatin Calcium (Atorvastatin Calcium) 40 Mg Tablet, 40 MG PO HS, (Reported) Entered as Reported by: FERNANDO FULLER on 01/23/22 1145 Budesonide/Formoterol Fumarate (Budesonide-Formoterol 160-4.5) 160 Mcg-4.5 Mcg/Actuation Hfa.aer.ad, 2 PUFF INH BID, (Reported) Entered as Reported by: FERNANDO FULLER on 01/23/22 114 Empagliflozin (Jardiance) 10 Mg Tablet, 10 MG PO DAILY, (Reported) Entered as Reported by: FERNANDO FULLER on 01/23/22 114 Escitalopram Oxalate (Escitalopram Oxalate) 10 Mg Tablet, 10 MG PO 1900, (Reported) Entered as Reported by: FERNANDO FULLER on 01/23/22 114 Fluticasone Propionate (Fluticasone Propionate) 50 Mcg/Actuation [place].susp, 1 SPRAY NSEACH DAILY, (Reported) Entered as Reported by: FERNANDO FULLER on 01/23/22 114 Ibuprofen (Ibuprofen) 200 Mg Tablet, 400-600 MG PO Q8H PRN for PAIN-MILD (1-4), (Reported) Entered as Reported by: FERNANDO FULLER on 01/23/22 1145 Insulin NPH Hum/Reg Insulin Hm (Humulin 70-30 Vial) 100 Unit/Ml (70-30) Vial, 35 UNITS SC DAILY, (Reported) Entered as Reported by: LISANDRO COFFMAN on 07/18/18 0857 Insulin NPH Hum/Reg Insulin Hm (Humulin 70-30 Vial) 100 Unit/Ml (70-30) Vial, 18 UNIT SQ HS, (Reported) Entered as Reported by: FERNANDO FULLER on 01/23/22 1145 Levetiracetam (Levetiracetam) 750 Mg Tablet, 750 MG PO BID, (Reported) Entered as Reported by: FERNANDO FULLER on 01/23/22 1145 Lisinopril (Lisinopril) 20 Mg Tablet, 20 MG PO DAILY Prescribed by: LULI CROWELL on 01/23/22 1424 Magnesium Oxide (Magnesium Oxide) 400 Mg Tablet, 400 MG PO BID Prescribed by: LULI CROWELL on 01/23/22 1633 Metformin HCl (Metformin HCl) 1,000 Mg Tablet, 1,000 MG PO BID, (Reported) Entered as Reported by: FERNANDO FULLER on 01/23/22 1145 Mirabegron (Myrbetriq) 50 Mg Tab.er.24h, 50 MG PO DAILY, (Reported) Entered as Reported by: FERNANDO FULLER on 01/23/22 1145 Pantoprazole Sodium (Pantoprazole Sodium) 40 Mg Tablet.dr, 40 MG PO DAILY, (Reported) Entered as Reported by: FILOMENA BAZZI on 04/30/18 1209 Trazodone HCl (Trazodone HCl) 50 Mg Tablet, 75 MG PO HS, (Reported) Entered as Reported by: FERNANDO FULLER on 01/23/22 1145 Discontinued Medications Acetaminophen (Tylenol Extra Strength) 500 Mg Tablet, 1,000 MG PO DAILY PRN for PAIN-MILD, (Reported) Discontinued Reason: No Longer Taking Entered as Reported by: LISANDRO COFFMAN on 07/18/18 0857 Alprazolam (Xanax) 0.5 Mg Tablet, 0.5 MG PO TID PRN for ANXIETY, (Reported) Discontinued Reason: No Longer Taking Entered as Reported by: FILOMENA BAZZI on 04/30/18 1209 Benazepril HCl (Benazepril HCl) 5 Mg Tablet, 5 MG PO DAILY, (Reported) Discontinued Reason: No Longer Taking Entered as Reported by: FILOMENA BAZZI on 04/30/18 1209 Bethanechol Chloride (Urecholine) 25 Mg Tablet, 50 MG PO ACHS, (Reported) Discontinued Reason: No Longer Taking Entered as Reported by: FILOMENA BAZZI on 08/04/18 1449 Cefdinir (Cefdinir) 300 Mg Capsule, 300 MG PO BID Discontinued Reason: No Longer Taking Prescribed by: PAYAL BARDALES on 09/25/20 2352 Clotrimazole/Betamethasone Dip (Clotrimazole-Betamethasone Crm) 15 Gm Cream..g., 15 GM TP BID Discontinued Reason: No Longer Taking Prescribed by: BHAKTI OLIVAREZ on 05/04/21 0146 Escitalopram Oxalate (Lexapro) 10 Mg Tablet, 10 MG PO HS, (Reported) Discontinued Reason: No Longer Taking Entered as Reported by: FILOMENA BAZZI on 04/30/18 1209 Hydrocodone/Acetaminophen (Lorcet 5-325 mg Tablet) 1 Each Tablet, 1 EACH PO Q4- 6HR PRN for PAIN-MODERATE Discontinued Reason: No Longer Taking Prescribed by: ELYSIA HAYS on 10/09/19 1442 Magnesium Oxide (Magnesium Oxide) 400 Mg Tablet, 400 MG PO BID Discontinued Reason: No Longer Taking Prescribed by: BHAKTI OLIVAREZ on 05/04/21 0146 Mupirocin (Mupirocin) 22 Gm Oint...g., 22 GM TP BID Discontinued Reason: No Longer Taking Prescribed by: BHAKTI OLIVAREZ on 05/04/21 0146 Neomycin [place]/Bacitrac Zn/Poly (Neosporin Ointment) 28.3 Gm Oint...g., TP TID, (Reported) Discontinued Reason: No Longer Taking Entered as Reported by: LISANDRO COFFMAN on 07/18/18 0857 Phenazopyridine HCl (Pyridium) 200 Mg Tablet, 1 TAB PO TID Discontinued Reason: No Longer Taking Prescribed by: PAYAL BARDALES on 09/25/20 2352 Potassium Chloride (Potassium Chloride) 10 Meq Tablet.er, 10 MEQ PO DAILY, (Reported) Discontinued Reason: No Longer Taking Entered as Reported by: LISANDRO COFFMAN on 07/18/18 0846 Simvastatin (Simvastatin) 20 Mg Tablet, 10 MG PO HS, (Reported) Discontinued Reason: No Longer Taking Entered as Reported by: LISANDRO COFFMAN on 07/18/18 0857 Tamsulosin HCl (Flomax) 0.4 Mg Cap, 0.4 MG PO BID, (Reported) Discontinued Reason: No Longer Taking Entered as Reported by: FILOMENA BAZZI on 08/04/18 1449 Review of Systems Review of Systems Constitutional: No chills, No fever EENTM: nose congestion, throat pain Respiratory: cough, short of breath Gastrointestinal: No nausea, No vomiting Review of systems limited due to confusion and poor historian Past Ksevqjt-Ebbops-Hqwrrt Hx Patient Social History Tobacco Use?: No Smoking Status: Former Smoker Smokeless Tobacco Frequency: Former User Use of E-Cig and/or Vaping dev: No Substance use?: No Alcohol Use?: No Pt feels they are or have been: No Immunizations Up To Date Tetanus Booster (TDap): Unknown PED Vaccines UTD: No Influenza Vaccine Up-to-Date: No; Not Current First/Initial COVID19 Vaccinat: 2020 Second COVID19 Vaccination Tony: 2020 Third COVID19 Vaccination Date: 2020 Seasonal Allergies Seasonal Allergies: No Past Medical History Surgery/Hospitalization HX: CARDAIC CATHS WITH STENTS X 7, TURP FOR PROSTATE CANCER, CATARACT SURGERY, tia, brain tumor Surgeries: Yes (7 stents) Coronary Stent, Eye Surgery, Prostatectomy, Transurethral Resection Respiratory: Yes (oxygen at hs) COPD Currently Using CPAP: No Currently Using BIPAP: No Cardiac: Yes (STENTS X 7) Coronary Artery Disease, Heart Attack, High Cholesterol, Hypertension Neurological: Yes Brain Tumor, Headaches /Migraines, Vertigo Reproductive Disorders: No Genitourinary: Yes (PROSTATE CANCER; CHRONIC INCONTINENCE; HX RETENTINON) Prostate Problems Gastrointestinal: Yes Gastroesophageal Reflux Musculoskeletal: Yes Arthritis, Fractures Endocrine: Yes Diabetes, Insulin dep HEENT: Yes Cataract Cancer: Yes (lip) Prostate, Skin Did You Recieve Any Treatments: Yes What Type of Treatment Did You: Radiation, Surgical Intervention Psychosocial: No Integumentary: No Blood Disorders: No Adverse Reaction/Blood Tranf: No Family Medical History Reviewed Nursing Family Hx Patient reports no known family medical history. No Pertinent Family Hx N/A Physical Exam Vital Signs Vital Signs - First Documented 01/24/22 22:12 Temp 35.9 Pulse 71 Resp 14 B/P (MAP) 140/69 (92) Pulse Ox 95 O2 Delivery Room Air Capillary Refill : Height, Weight, BMI Height: 6'0" Weight: 245lbs. 0.0oz. 111.282947np; 32.00 BMI Method:Stated General Appearance: No Apparent Distress, Chronically ill HEENT: PERRL/EOMI, Pharynx Normal Neck: Non Tender, Supple Respiratory: Lungs Clear, Normal Breath Sounds Cardiovascular: Regular Rate, Rhythm, No Murmur Gastrointestinal: Non Tender, Soft Back: Normal Inspection, No CVA Tenderness, No Vertebral Tenderness Extremity: Normal Inspection, No Calf Tenderness, No Pedal Edema Neurologic/Psychiatric: Alert, Disoriented (Confused to time and situation but answers simple questions and follow simple commands) Skin: Normal Color, Warm/Dry Progress/Results/Core Measures Suspected Sepsis SIRS Temperature: Pulse: 71 Respiratory Rate: 14 Laboratory Tests 01/24/22 22:00: White Blood Count 7.3 Blood Pressure 140 /69 Mean: 92 Laboratory Tests 01/24/22 22:00: Creatinine 1.20, Platelet Count 261, Total Bilirubin 0.6 Results/Orders Lab Results Laboratory Tests Test 01/24/22 22:00 01/24/22 22:11 01/24/22 22:54 01/25/22 00:07 Range/Units White Blood Count 7.3 4.3-11.0 10^3/uL Red Blood Count 5.08 4.30-5.52 10^6/uL Hemoglobin 14.8 13.3-17.7 g/dL Hematocrit 44 40-54 % Mean Corpuscular Volume 87 80-99 fL Mean Corpuscular Hemoglobin 29 25-34 pg Mean Corpuscular Hemoglobin Concent 33 32-36 g/dL Red Cell Distribution Width 13.5 10.0-14.5 % Platelet Count 261 130-400 10^3/uL Mean Platelet Volume 10.5 9.0-12.2 fL Immature Granulocyte % (Auto) 0 % Neutrophils (%) (Auto) 73 42-75 % Lymphocytes (%) (Auto) 15 12-44 % Monocytes (%) (Auto) 8 0-12 % Eosinophils (%) (Auto) 3 0-10 % Basophils (%) (Auto) 1 0-10 % Neutrophils # (Auto) 5.3 1.8-7.8 10^3/uL Lymphocytes # (Auto) 1.1 1.0-4.0 10^3/uL Monocytes # (Auto) 0.6 0.0-1.0 10^3/uL Eosinophils # (Auto) 0.2 0.0-0.3 10^3/uL Basophils # (Auto) 0.1 0.0-0.1 10^3/uL Immature Granulocyte # (Auto) 0.0 0.0-0.1 10^3/uL Sodium Level 137 135-145 MMOL/L Potassium Level 3.0 L 3.6-5.0 MMOL/L Chloride Level 97 L 98-107 MMOL/L Carbon Dioxide Level 26 21-32 MMOL/L Anion Gap 14 5-14 MMOL/L Blood Urea Nitrogen 22 H 7-18 MG/DL Creatinine 1.20 0.60-1.30 MG/DL Estimat Glomerular Filtration Rate 63 BUN/Creatinine Ratio 18 Glucose Level 75 70-105 MG/DL Calcium Level 8.8 8.5-10.1 MG/DL Corrected Calcium 9.3 8.5-10.1 MG/DL Total Bilirubin 0.6 0.1-1.0 MG/DL Aspartate Amino Transf (AST/SGOT) 23 5-34 U/L Alanine Aminotransferase (ALT/SGPT) 16 0-55 U/L Alkaline Phosphatase 98 40-136 U/L Total Protein 5.8 L 6.4-8.2 GM/DL Albumin 3.4 3.2-4.5 GM/DL Glucometer 66 L 53 *L 70-110 MG/DL Influenza Type A (RT-PCR) Not Detected Not Detecte Influenza Type B (RT-PCR) Not Detected Not Detecte SARS-CoV-2 RNA (RT-PCR) Not Detected Not Detecte My Orders Orders - VIDHYA ORTIZ MD D5 Ns 1000 Ml Iv Solution (Dextrose 5%/0 (01/24/22 22:15) Cbc With Automated Diff (01/24/22 22:29) Comprehensive Metabolic Panel (01/24/22:29) Ua Culture If Indicated (01/24/22:29) D5 Ns 1000 Ml Iv Solution (Dextrose 5%/0 (01/24/22 22:29) Chest 1 View, Ap/Pa Only (01/24/22 22:49) Covid 19 Inhouse Test (01/24/22 22:49) Influenza A And B By Pcr (01/24/22 22:49) Dextrose 10% Iv Solution (D10w 250 Ml Iv (01/25/22 00:15) Vital Signs/I&O 01/24/22 22:12 Temp 35.9 Pulse 71 Resp 14 B/P (MAP) 140/69 (92) Pulse Ox 95 O2 Delivery Room Air Capillary Refill : Blood Pressure Mean: 92 Point of Care Testing Finger Stick Blood Glucose: 66 Blood Glucose Action Taken: notified Progress Note : Progress Note Seen and evaluated. Apparently improved for EMS. We will check basic labs, UA and chest x-ray and initiate D5 NS at 250 an hour. Monitor patient. 0012: Blood sugar noted to be 53. We have initiated the plan and will give 125 mL bolus of that. Due to persistent hypoglycemia, patient will need to be admitted. He does have history of prostate cancer as well as meningioma. Done 2 days ago showed no significant changes on that currently. I did discuss the case with Dr. Crowell who agrees to admit the patient, inpatient status. 0020: I have spoken with the eICU on-call doctor and given report. He agrees with plan thus far. We will initiate an at 75 mL an hour after initial bolus given. We will follow and manage nursing to notify family. Diagnostic Imaging Diagonstic Imaging: Xray Plain Films/CT/US/NM/MRI: chest Comments No acute infiltrate on my interpretation. Pending radiology evaluation Reviewed: Reviewed by Me Departure Communication (Admissions) Time/Spoke to Admitting Phy: 00:12 Time/Spoke to Consulting Phy: 00:20 Impression Primary Impression: Hyperglycemia Additional Impressions: Meningioma Altered mental status Qualified Codes: R41.0 - Disorientation, unspecified Hypokalemia Disposition: ADMITTED INPATIENT Condition: Stable Admissions Decision to Admit Reason: Admit from ER (General) Decision to Admit/Date: Jan 25, 2022 Time/Decision to Admit Time: 00:12 Departure-Patient Inst. Referrals: NO,LOCAL PHYSICIAN (PCP) Primary Care Physician INGRIS GUTIÉRREZ (Family) Primary Care Physician VIDHYA ORTIZ MD Jan 25, 2022 00:10
[2022-01-25] MEDS ORDERED: DEXTROSE 10% IV SOLUTION 250 ML IV SCH (00:15)
[2022-01-25 00:42] LABS: BILIRUBIN,URINE NEGATIVE (NEGATIVE); CLARITY,URINE CLEAR; COLOR,URINE YELLOW; GLUCOSE, URINE (UA) 2+ (NEGATIVE); KETONES,URINE NEGATIVE (NEGATIVE); LEUKOCYTE ESTERASE ,URINE NEGATIVE (NEGATIVE); NITRITE,URINE NEGATIVE (NEGATIVE); PH,URINE 5.5 (5-9); PROTEIN,URINE 2+ (NEGATIVE)
[2022-01-25 00:57] LABS: BACTERIA,URINE NEGATIVE /HPF; WBC,URINE RARE /HPF
[2022-01-25] MEDS ORDERED: DEXTROSE 50% 50 ML (IMS) SYR ONE (01:28)
[2022-01-25] MEDS ORDERED: ONDANSETRON 4 MG/2 ML (SDV) Z0FRAN IV PRN (01:30)
[2022-01-25] MEDS ORDERED: DEXTROSE 10% IV SOLUTION 1,000 ML IV SCH (01:30)
[2022-01-25] MEDS ORDERED: NS IV 500 ML 500 ML IV PRN ×2 (02:00→10:00)
[2022-01-25] MEDS ORDERED: KCL 20 MEQ TAB (K-DUR) PO ONE ×3 (02:30→06:30)
[2022-01-25 05:14] LABS: BASOPHILS % (AUTO) 1 % (0-10); EOSINOPHILS # (AUTO) 0.2 10^3/uL (0.0-0.3); EOSINOPHILS % (AUTO) 3 % (0-10); HEMATOCRIT 42 % (40-54); HEMOGLOBIN 14.1 g/dL (13.3-17.7); LYMPHOCYTES # (AUTO) 1.3 10^3/uL (1.0-4.0); LYMPHOCYTES % (AUTO) 18 % (12-44); MEAN CORPUSCULAR HEMOGLOBIN 29 pg (25-34); MEAN CORPUSCULAR HGB CONC 33 g/dL (32-36); MEAN CORPUSCULAR VOLUME 87 fL (80-99); MEAN PLATELET VOLUME 10.4 fL (9.0-12.2); MONOCYTES # (AUTO) 0.7 10^3/uL (0.0-1.0); MONOCYTES % (AUTO) 10 % (0-12); NEUTROPHILS # (AUTO) 4.8 10^3/uL (1.8-7.8); NEUTROPHILS % (AUTO) 69 % (42-75); PLATELET COUNT 228 10^3/uL (130-400); WHITE BLOOD COUNT 6.9 10^3/uL (4.3-11.0)
[2022-01-25 05:35] LABS: ALBUMIN 3.1 GM/DL (3.2-4.5)
[2022-01-25 05:37] LABS: CALCIUM 8.7 MG/DL (8.5-10.1)
[2022-01-25 05:38] LABS: TOTAL PROTEIN 5.2 GM/DL (6.4-8.2)
[2022-01-25 05:39] LABS: BILIRUBIN,TOTAL 0.6 MG/DL (0.1-1.0)
[2022-01-25 05:41] LABS: PHOSPHORUS 3.7 MG/DL (2.3-4.7)
[2022-01-25 05:42] LABS: CREATININE SERUM 1.03 MG/DL (0.60-1.30)
[2022-01-25 05:44] LABS: MAGNESIUM 1.3 MG/DL (1.6-2.4)
[2022-01-25] MEDS ORDERED: KCL 20 MEQ TAB (K-DUR) PO SCH (06:00)
[2022-01-25] MEDS: hydrALAZINE (APESOLINE) 20 MG/ML VIAL IV PRN ×3 (06:54→22:03)
[2022-01-25] MEDS: POTASSIUM CL 10MEQ/50ML IVPB 50 ML IV SCH ×7 (06:55→10:43)
[2022-01-25] MEDS: MAGNESIUM 1 GM/100 ML IVPB 100 ML IV SCH ×5 (06:55→10:15)
--- NOTE | 2022-01-25 07:57 | Diagnostic Imaging Report ---
INDICATION: cough. TECHNIQUE: Single view chest 11:01 PM. CORRELATION STUDY: 05/08/2021 FINDINGS: Heart size enlarged. Vasculature slightly increased from prior. Question infiltrate-like opacity of the right lung base. IMPRESSION: 1. Heart size and vasculature are borderline appear slightly more prominent from prior. May reflect early edema. Additionally, there is questioned infiltrate or atelectasis at the right lung base. Dictated by: Dictated on workstation # [id number]
--- NOTE | 2022-01-25 08:25 | Tele-ICU Consult ---
Progress Note Received report from bedside nurse. 76 yo male w h/o prostate cancer, h/o brain mets was admitted with altered mentation. Initial BG 44. Mental status improved after dextrose given. Per nurse, pt self-administered insulin. On video Pt sitting in bed having breakfast, NAD Sinus, occ PVC O2 sat 97-100% RA Focused Exam Height, Weight, BMI Height: 6'0" Weight: 245lbs. 0.0oz. 111.494374rr; 32.19 BMI Method:Stated Respiratory: No Accessory Muscle Use, No Respiratory Distress Cardiovascular: Regular Rate, Rhythm Skin: normal color Assessment/Plan Assessment and Plan Assess & Plan/Chief Complaint Hypoglycemia improved. Advised nurse on prn use of D50, continue D 10 IV Prophy SCDs Disposition, Pt full code for now Home Medications & Allergies Home Medications Reviewed patient Home Medication Reconciliation performed by pharmacy medication reconciliations is technician and/or nursing. Patients Allergies have been reviewed. Allergies Allergies Coded Allergies meperidine (Verified Allergy, Severe, Mental Confusion, 07/16/18) Meds/Labs/Orders Lab results: Laboratory Tests Test 01/24/22 22:00 01/24/22 22:11 01/24/22 22:54 01/25/22 00:07 Range/Units White Blood Count 7.3 4.3-11.0 10^3/uL Red Blood Count 5.08 4.30-5.52 10^6/uL Hemoglobin 14.8 13.3-17.7 g/dL Hematocrit 44 40-54 % Mean Corpuscular Volume 87 80-99 fL Mean Corpuscular Hemoglobin 29 25-34 pg Mean Corpuscular Hemoglobin Concent 33 32-36 g/dL Red Cell Distribution Width 13.5 10.0-14.5 % Platelet Count 261 130-400 10^3/uL Mean Platelet Volume 10.5 9.0-12.2 fL Immature Granulocyte % (Auto) 0 % Neutrophils (%) (Auto) 73 42-75 % Lymphocytes (%) (Auto) 15 12-44 % Monocytes (%) (Auto) 8 0-12 % Eosinophils (%) (Auto) 3 0-10 % Basophils (%) (Auto) 1 0-10 % Neutrophils # (Auto) 5.3 1.8-7.8 10^3/uL Lymphocytes # (Auto) 1.1 1.0-4.0 10^3/uL Monocytes # (Auto) 0.6 0.0-1.0 10^3/uL Eosinophils # (Auto) 0.2 0.0-0.3 10^3/uL Basophils # (Auto) 0.1 0.0-0.1 10^3/uL Immature Granulocyte # (Auto) 0.0 0.0-0.1 10^3/uL Sodium Level 137 135-145 MMOL/L Potassium Level 3.0 L 3.6-5.0 MMOL/L Chloride Level 97 L 98-107 MMOL/L Carbon Dioxide Level 26 21-32 MMOL/L Anion Gap 14 5-14 MMOL/L Blood Urea Nitrogen 22 H 7-18 MG/DL Creatinine 1.20 0.60-1.30 MG/DL Estimat Glomerular Filtration Rate 63 BUN/Creatinine Ratio 18 Glucose Level 75 70-105 MG/DL Calcium Level 8.8 8.5-10.1 MG/DL Corrected Calcium 9.3 8.5-10.1 MG/DL Total Bilirubin 0.6 0.1-1.0 MG/DL Aspartate Amino Transf (AST/SGOT) 23 5-34 U/L Alanine Aminotransferase (ALT/SGPT) 16 0-55 U/L Alkaline Phosphatase 98 40-136 U/L Total Protein 5.8 L 6.4-8.2 GM/DL Albumin 3.4 3.2-4.5 GM/DL Glucometer 66 L 53 *L 70-110 MG/DL Influenza Type A (RT-PCR) Not Detected Not Detecte Influenza Type B (RT-PCR) Not Detected Not Detecte SARS-CoV-2 RNA (RT-PCR) Not Detected Not Detecte Test 01/25/22 00:30 01/25/22 01:26 01/25/22 02:35 01/25/22 03:54 Range/Units Urine Color YELLOW Urine Clarity CLEAR Urine pH 5.5 5-9 Urine Specific [place] 1.020 1.016-1.022 Urine Protein 2+ H NEGATIVE Urine Glucose (UA) 2+ H NEGATIVE Urine Ketones NEGATIVE NEGATIVE Urine Nitrite NEGATIVE NEGATIVE Urine Bilirubin NEGATIVE NEGATIVE Urine Urobilinogen 2.0 < = 1.0 MG/DL Urine Leukocyte Esterase NEGATIVE NEGATIVE Urine RBC (Auto) NEGATIVE NEGATIVE Urine RBC NONE /HPF Urine WBC RARE /HPF Urine Crystals NONE /LPF Urine Bacteria NEGATIVE /HPF Urine Casts NONE /LPF Urine Mucus NEGATIVE /LPF Urine Culture Indicated NO Glucometer 47 *L 80 91 70-110 MG/DL Test 01/25/22 04:55 01/25/22 07:01 01/25/22 08:02 Range/Units White Blood Count 6.9 4.3-11.0 10^3/uL Red Blood Count 4.86 4.30-5.52 10^6/uL Hemoglobin 14.1 13.3-17.7 g/dL Hematocrit 42 40-54 % Mean Corpuscular Volume 87 80-99 fL Mean Corpuscular Hemoglobin 29 25-34 pg Mean Corpuscular Hemoglobin Concent 33 32-36 g/dL Red Cell Distribution Width 13.4 10.0-14.5 % Platelet Count 228 130-400 10^3/uL Mean Platelet Volume 10.4 9.0-12.2 fL Immature Granulocyte % (Auto) 0 % Neutrophils (%) (Auto) 69 42-75 % Lymphocytes (%) (Auto) 18 12-44 % Monocytes (%) (Auto) 10 0-12 % Eosinophils (%) (Auto) 3 0-10 % Basophils (%) (Auto) 1 0-10 % Neutrophils # (Auto) 4.8 1.8-7.8 10^3/uL Lymphocytes # (Auto) 1.3 1.0-4.0 10^3/uL Monocytes # (Auto) 0.7 0.0-1.0 10^3/uL Eosinophils # (Auto) 0.2 0.0-0.3 10^3/uL Basophils # (Auto) 0.0 0.0-0.1 10^3/uL Immature Granulocyte # (Auto) 0.0 0.0-0.1 10^3/uL Sodium Level 140 135-145 MMOL/L Potassium Level 3.0 L 3.6-5.0 MMOL/L Chloride Level 100 98-107 MMOL/L Carbon Dioxide Level 28 21-32 MMOL/L Anion Gap 12 5-14 MMOL/L Blood Urea Nitrogen 20 H 7-18 MG/DL Creatinine 1.03 0.60-1.30 MG/DL Estimat Glomerular Filtration Rate 75 BUN/Creatinine Ratio 19 Glucose Level 54 *L 70-105 MG/DL Calcium Level 8.7 8.5-10.1 MG/DL Corrected Calcium 9.4 8.5-10.1 MG/DL Phosphorus Level 3.7 2.3-4.7 MG/DL Magnesium Level 1.3 L 1.6-2.4 MG/DL Total Bilirubin 0.6 0.1-1.0 MG/DL Aspartate Amino Transf (AST/SGOT) 23 5-34 U/L Alanine Aminotransferase (ALT/SGPT) 16 0-55 U/L Alkaline Phosphatase 88 40-136 U/L Total Protein 5.2 L 6.4-8.2 GM/DL Albumin 3.1 L 3.2-4.5 GM/DL Glucometer 46 *L 59 *L 70-110 MG/DL My orders: Orders - SYED AGUILERA MD D50w (Emergency) Syringe (Dextrose 50% 5 (01/25/22 08:30) SYED AGUILERA MD Jan 25, 2022 08:25
[2022-01-25] MEDS ORDERED: DEXTROSE 50% 50 ML (IMS) SYR IV NR (08:30)
[2022-01-25] MEDS ORDERED: DEXTROSE 50% 50 ML (IMS) SYR IV PRN (08:45)
[2022-01-25] MEDS: KCL 20 MEQ TAB (K-DUR) PO SCH (10:15)
--- NOTE | 2022-01-25 12:38 | History & Physical-Hospitalist ---
STACI VAUGHN A MED STUDENT 01/25/22 1238: History of Present Illness HPI/Chief Complaint Tr is a 76 yo demented male who was admitted for hypoglycemia. Past medical hx includes insulin dependent diabetes, meningioma, prostate cancer, TIA, CAD with stent placement, HTN, HLD, GERD. Pt was just discharged earlier this week for HTN urgency. ED reports state family could not care for him at home anymore and would like pt to stay so they can get placement in a facility. Pt reportedly had a blood sugar of 44 upon EMS arrival and was given D10 which improved his blood sugar and lethargy. Pt is only alert and oriented to self. He is a poor historian and provides inconsistent history. When asked who gives him his insulin he sometimes states he does and other times states his does. He did have an episode of diarrhea this morning. He does not report any pain. Pt's reports she would like him to go to a correction facility then have them both go to an assisted living facility. Will consult child welfare social worker. Source: patient, family, old records Date Seen 01/25/22 Time Seen by a Provider: 09:50 Attending Physician No,Local Physician PCP Admitting Physician: Luli Crowell MD Attending Physician: Luli Crowell MD Referring Physician Date of Admission Jan 25, 2022 at 00:12 Home Medications & Allergies Home Medications Reviewed patient Home Medication Reconciliation performed by pharmacy medication reconciliations emergency veterinary technician and/or nursing. Patients Allergies have been reviewed. Allergies Allergies Coded Allergies meperidine (Verified Allergy, Severe, Mental Confusion, 07/16/18) Past Swmsjwp-Nypmdx-Nvhkvo Hx Patient Social History Tobacco Use?: No Smoking Status: Former Smoker Smokeless Tobacco Frequency: Former User Use of E-Cig and/or Vaping dev: No Substance use?: No Alcohol Use?: No Pt feels they are or have been: No Immunizations Up To Date First/Initial COVID19 Vaccinat: 2020 Second COVID19 Vaccination Tony: 2020 Tetanus Booster (TDap): Unknown Hepatitis A: No Hepatitis B: No PED Vaccines UTD: No Date of Pneumonia Vaccine: Dec 02, 2017 Seasonal Allergies Seasonal Allergies: No Current Status Advance Directives: No Communicates: Verbally Primary Language: Cameroonian Preferred Spoken Language: Cam[place]onian Is interpretation needed?: No Past Medical History Surgeries: Coronary Stent, Eye Surgery, Prostatectomy, Transurethral Resection COPD Currently Using CPAP: No Currently Using BIPAP: No Coronary Artery Disease, Heart Attack, High Cholesterol, Hypertension Brain Tumor, Headaches /Migraines, Vertigo Prostate Problems Gastroesophageal Reflux Arthritis, Fractures Diabetes, Insulin dep Cataract Prostate, Skin Did You Recieve Any Treatments: Yes What Type of Treatment Did You: Radiation, Surgical Intervention Blood Disorders: No Adverse Reaction/Blood Tranf: No HTN T2DM Meningioma Anxiety Family Medical History Reviewed Nursing Family Hx Patient reports no known family medical history. No Pertinent Family Hx N/A Review of Systems ROS-Unable to Obtain: Dementia Physical Exam Physical Exam Vital Signs Vital Signs - First Documented 01/24/22 22:12 Temp 35.9 Pulse 71 Resp 14 B/P (MAP) 140/69 (92) Pulse Ox 95 O2 Delivery Room Air Capillary Refill : Less Than 3 Seconds Height, Weight, BMI Height: 6'0" Weight: 245lbs. 0.0oz. 111.477439xb; 32.19 BMI Method:Stated General Appearance: Chronically ill, Obese HEENT: PERRL/EOMI, Moist Mucous Membranes Neck: Full Range of Motion, Non Tender Respiratory: Chest Non Tender, No Accessory Muscle Use, No Respiratory Distress, Decreased Breath Sounds Cardiovascular: Regular Rate, Rhythm, No Murmur Gastrointestinal: Normal Bowel Sounds, Tenderness (diffuse) Extremity: Normal Capillary Refill, Normal Range of Motion, Non Tender, No Pedal Edema Neurologic/Psychiatric: Alert, Normal Mood/Affect, Disoriented Skin: Normal Color, Warm/Dry Lymphatic: No Adenopathy Results Results/Procedures Labs Laboratory Tests 01/24/22 22:00 01/25/22 04:55 Patient resulted labs reviewed. Assessment/Plan Admission Diagnosis Hypoglycemia Admission Status: Inpatient Order (span 2 midnights) Reason for Inpatient Admission: Hypoglycemia Assessment and Plan Hypoglycemia Hypokalemia Diarrhea Hypomagnesemia HTN HLD GERD Hypoglycemia -Possibly d/t insulin overdose as pt is inconsistent about who gives him his insulin -D10 given as well as regular diet and blood sugar now 180. -Stop D10 and start SSIA -Continue to monitor blood sugars Hypokalemia -KCl protocol Diarrhea -Unsure whether this has been ongoing or acute onset, of note he did not have this during prior admission -If continues, consider C. diff testing Hypomagnesemia -Mag Sulf/Dextrose HTN -Hydralazine prn -Restart home lisinopril 20mg HLD -Restart home atorvastatin GERD -protonix CAD -Aspirin 81mg Meningioma Disposition: Will transfer to general medical floor today. Continue to monitor blood sugar and encourage good oral intake. Likely to stay several days to develop plan of care. Will consult child welfare social worker. Diet: carbohydrate consistent Code status: Full code DVT prophylaxis: SCDs and ambulation GI ppx: Protonix LULI CROWELL MD 01/25/22 1634: History of Present Illness Exam Limitations: no limitations Time Seen by a Provider: 11:10 Past Stcnfqm-Ybcxya-Cucksc Hx Family Medical History Patient reports no known family medical history. No Pertinent Family Hx Review of Systems Constitutional: see HPI Results Results/Procedures Imaging: Reviewed Imaging Report Assessment/Plan Admission Diagnosis Admission Status: Inpatient Order (span 2 midnights) Reason for Inpatient Admission: Hypoglycemia Assessment and Plan Presented with altered mental status, admitted with hypoglycemia. Started on D10. Blood sugars now increasing, stop D10. Add sliding scale. Mental status improving. SW consult for possible placement. 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 insulin use: with watermelon harvesting supervisor use Diabetes mellitus complication status: with hypoglycemia Diabetes mellitus complication detail: without coma Qualified Codes: E11.649 - Type 2 diabetes mellitus with hypoglycemia without coma; Z79.4 - intermediate frame tender (current) use of insulin (2) Meningioma Status: Chronic (3) Hypokalemia Status: Acute (4) Obesity Status: Chronic (5) Frequent falls Status: Chronic (6) HTN (hypertension) Status: Chronic Supervisory-Addendum Brief Verification & Attestation Participated in pt care: history, MDM, physical Personally performed: exam, history, MDM, supervision of care Care discussed with: Medical Student Procedures: n/a Results interpretation: Verified all documentation A medical student performed and documented this service in my presence. I reviewed and verified all information documented by the medical student and made modifications to such information, when appropriate. I personally performed the physical exam and medical decision making. STACI VAUGHN A MED STUDENT Jan 25, 2022 12:38 LULI CROWELL MD Jan 25, 2022 16:34
[2022-01-25] MEDS: inSUlin ASPART (NovoLOG) 1 UNIT/0.01 ML (CHARGE PER UNIT) SC SCH ×2 (15:20→20:05)
[2022-01-25] MEDS: ALPRAZolam 0.25 MG (XANAX) TAB PO SCH (16:41)
[2022-01-25] MEDS: traZODone 50 MG (DESYREL) TAB PO SCH (20:09)
[2022-01-26] MEDS: ALPRAZolam 0.25 MG (XANAX) TAB PO SCH (00:34)
--- NOTE | 2022-01-26 00:53 | Tele-ICU Progress Note ---
Subjective Date Seen by a Provider: Jan 26, 2022 Time Seen by a Provider: 00:50 Subjective/Events-last exam called for BP 221/109 despite gettting 10 mg IV hydralazine 2 h ago. also agitated, usually takes Xanax 0.5 but only given 0.25 No Hx of bradycardia or asthma, will give another 0.25 mg po Xanax and give 10 mg IV Labetolol Kiel Huffman MD Sepsis Event Evaluation Height, Weight, BMI Height: 6'0" Weight: 245lbs. 0.0oz. 111.333831dy; 32.19 BMI Method:Stated Exam Exam Patient acknowledged, consented, and participated in this virtual visit which was conducted using real time audio/video Vital Signs Date Time Temp Pulse Resp B/P (MAP) Pulse Ox O2 Delivery O2 Flow Rate FiO2 01/26/22 00:42 36.5 01/25/22 23:00 86 28 181/88 (119) 93 Room Air 01/25/22 22:02 121 16 197/84 (121) Room Air 01/25/22 21:24 96 Room Air 01/25/22 21:17 111 38 186/105 (132) 89 Room Air 01/25/22 20:48 36.0 01/25/22 20:02 87 12 186/109 (134) 97 Room Air 01/25/22 19:17 89 18 162/83 (109) 95 Room Air 01/25/22 19:00 104 01/25/22 18:00 79 19 187/92 (123) 94 Room Air 01/25/22 17:00 78 16 168/70 (102) 98 Room Air 01/25/22 16:55 98 Room Air 01/25/22 16:00 36.1 01/25/22 16:00 81 22 167/73 (104) 100 Room Air 01/25/22 15:21 36.0 01/25/22 15:00 74 17 168/80 (109) 98 Room Air 01/25/22 14:00 78 20 138/73 (94) 99 Room Air 01/25/22 13:00 78 01/25/22 13:00 78 20 146/75 (98) 97 Room Air 01/25/22 12:25 100 Room Air 01/25/22 12:00 75 14 150/53 (85) 98 Room Air 01/25/22 11:34 36.0 01/25/22 11:00 73 15 149/68 (95) 99 Room Air 01/25/22 10:00 75 20 137/57 (83) 100 Room Air 01/25/22 09:40 35.7 01/25/22 09:30 80 01/25/22 09:00 78 31 134/75 (94) 98 Room Air 01/25/22 08:54 96 Room Air 01/25/22 08:00 73 18 143/74 (97) 97 Room Air 01/25/22 07:00 65 16 164/80 (108) 97 Room Air 01/25/22 07:00 78 01/25/22 06:00 68 12 198/100 (132) 96 Room Air 01/25/22 05:25 97 Room Air 01/25/22 05:00 65 26 162/74 (103) 95 Room Air 01/25/22 04:00 67 16 154/90 (111) 95 Room Air 01/25/22 03:21 36.4 Room Air 01/25/22 03:00 66 26 134/69 (90) 95 Room Air 01/25/22 02:30 64 14 132/65 (87) 96 Room Air 01/25/22 02:00 65 12 163/78 (106) 93 Room Air 01/25/22 01:45 67 12 176/85 (115) 93 Room Air 01/25/22 01:34 36.0 65 15 193/81 (118) Room Air 01/25/22 01:32 63 01/25/22 01:30 96 Room Air 01/25/22 01:15 35.9 65 14 110/52 95 Room Air 01/25/22 01:15 71 36 226/102 (143) 92 Room Air I & O 01/26/22 07:00 Intake Total 2520 ml Output Total 1450 ml Balance 1070 ml Height & Weight Height: 6'0" Weight: 245lbs. 0.0oz. 111.284197gh; 32.19 BMI Method:Stated General Appearance: Chronically ill, Obese HEENT: PERRL/EOMI, Moist Mucous Membranes Neck: Full Range of Motion, Non Tender Respiratory: Chest Non Tender, No Accessory Muscle Use, No Respiratory Distress, Decreased Breath Sounds Cardiovascular: Regular Rate, Rhythm, No Murmur Capillary Refill: Less Than 3 Seconds Extremity: Normal Capillary Refill, Normal Range of Motion, Non Tender, No Pedal Edema Neurologic/Psychiatric: Alert, Normal Mood/Affect, Disoriented Skin: Normal Color, Warm/Dry Lymphatic: No Adenopathy Results Lab Laboratory Tests 01/24/22 22:00 01/25/22 04:55 01/25/22 14:20 Assessment/Plan Assessment/Plan will give Xanax 0.25 mg to match usual dose. will give 10 mg IV Labetolol for elevated BP Critical Care: Critically Ill Patient Time spent with patient (mins): 10 REINALDO HUFFMAN MD Jan 26, 2022 00:53
[2022-01-26] MEDS ORDERED: LABETALOL HCL 20 MG/4 ML VIAL IV ONE (01:00)
[2022-01-26] MEDS ORDERED: ALPRAZolam 0.25 MG (XANAX) TAB PO ONE (01:30)
--- NOTE | 2022-01-26 03:01 | Progress Note ---
Standard Progress Note Progress Notes/Assess & Plan Date Seen by a Provider: Jan 26, 2022 Time Seen by a Provider: 03:00 Progress/Assessment & Plan called for continue agitation despite given another 0.25 mg Xanax, will start on IV Precedex pulling at tubes Kiel Huffman MD Final Diagnosis agitation REINALDO HUFFMAN MD Jan 26, 2022 03:01
[2022-01-26] MEDS: DexMEDEtomidine 250 ML DRIP 250 ML IV SCH ×2 (04:18→13:59)
[2022-01-26 05:41] LABS: BASOPHILS # (AUTO) 0.1 10^3/uL (0.0-0.1); BASOPHILS % (AUTO) 1 % (0-10); EOSINOPHILS # (AUTO) 0.2 10^3/uL (0.0-0.3); EOSINOPHILS % (AUTO) 4 % (0-10); HEMATOCRIT 42 % (40-54); HEMOGLOBIN 13.9 g/dL (13.3-17.7); LYMPHOCYTES % (AUTO) 17 % (12-44); MEAN CORPUSCULAR HEMOGLOBIN 29 pg (25-34); MEAN CORPUSCULAR HGB CONC 33 g/dL (32-36); MEAN CORPUSCULAR VOLUME 87 fL (80-99); MEAN PLATELET VOLUME 10.4 fL (9.0-12.2); MONOCYTES # (AUTO) 0.5 10^3/uL (0.0-1.0); MONOCYTES % (AUTO) 9 % (0-12); NEUTROPHILS # (AUTO) 4.2 10^3/uL (1.8-7.8); NEUTROPHILS % (AUTO) 70 % (42-75); PLATELET COUNT 224 10^3/uL (130-400)
[2022-01-26 06:08] LABS: ALBUMIN 3.1 GM/DL (3.2-4.5); BILIRUBIN,TOTAL 0.7 MG/DL (0.1-1.0); CALCIUM 8.6 MG/DL (8.5-10.1); CREATININE SERUM 0.93 MG/DL (0.60-1.30); MAGNESIUM 1.7 MG/DL (1.6-2.4); PHOSPHORUS 3.1 MG/DL (2.3-4.7); POTASSIUM 3.5 MMOL/L (3.6-5.0); TOTAL PROTEIN 5.5 GM/DL (6.4-8.2)
[2022-01-26] MEDS: MAGNESIUM 1 GM/100 ML IVPB 100 ML IV SCH ×2 (06:15→06:16)
[2022-01-26] MEDS: POTASSIUM CL 10MEQ/50ML IVPB 50 ML IV SCH ×2 (06:15→06:16)
[2022-01-26] MEDS: inSUlin ASPART (NovoLOG) 1 UNIT/0.01 ML (CHARGE PER UNIT) SC SCH ×4 (06:15→21:27)
[2022-01-26] MEDS: KCL 20 MEQ TAB (K-DUR) PO SCH ×2 (06:16→06:21)
[2022-01-26] MEDS: lisINopril 20 MG (PRINIVIL) TABLET PO SCH (07:38)
[2022-01-26] MEDS: ASPIRIN 81 MG CHEW (CHILDREN'S ASA) PO SCH (07:39)
[2022-01-26] MEDS: ALPRAZolam 0.5 MG (XANAX) TAB PO SCH ×2 (07:39→18:27)
[2022-01-26] MEDS: PANTOPRAZOLE 40 MG (PROTONIX) TAB PO SCH (07:39)
[2022-01-26] MEDS ORDERED: LISI20TA26 PO (11:51)
--- NOTE | 2022-01-26 13:33 | Progress Note - Hospitalist ---
STACI VAUGHN A MED STUDENT 01/26/22 1333: Subjective HPI/CC On Admission Date Seen by Provider: Jan 26, 2022 Time Seen by Provider: 08:30 Tr is a 76 yo demented male who was admitted for hypoglycemia. Past medical hx includes insulin dependent diabetes, meningioma, prostate cancer, TIA, CAD with stent placement, HTN, HLD, GERD. Pt was just discharged earlier this week for HTN urgency. ED reports state family could not care for him at home anymore and would like pt to stay so they can get placement in a facility. Pt reportedly had a blood sugar of 44 upon EMS arrival and was given D10 which improved his blood sugar and lethargy. Pt is only alert and oriented to self. He is a poor historian and provides inconsistent history. When asked who gives him his insulin he sometimes states he does and other times states his does. He did have an episode of diarrhea this morning. He does not report any pain. Pt's reports she would like him to go to a shelter facility then have them both go to an assisted living facility. Will consult oncology social worker. Subjective/Events-last exam Pt being seen in f/u for hypoglycemia and AMS. Pt was reportedly agitated overnight and into the morning, so Precedex was ordered by teleICU. On exam this morning pt was not arousable and slept for the entire exam. Will continue to with current course of care with goal to d/c to shelter facility Saturday. Will wean pt off precedex. Objective Exam Vital Signs Vital Signs Date Time Temp Pulse Resp B/P (MAP) Pulse Ox O2 Delivery O2 Flow Rate FiO2 01/26/22 13:09 94 Room Air 01/26/22 12:40 54 01/26/22 12:00 25 127/87 (100) 01/26/22 04:00 36.3 Capillary Refill : Less Than 3 Seconds General Appearance: No Apparent Distress, Obese HEENT: PERRL/EOMI, Moist Mucous Membranes Respiratory: No Accessory Muscle Use, No Respiratory Distress, Crackles, Decreased Breath Sounds Cardiovascular: Regular Rate, Rhythm, No Murmur Gastrointestinal: Normal Bowel Sounds, Soft Extremity: Non Tender, No Pedal Edema Neurologic/Psychiatric: Other (Slept through exam, not able to awaken) Skin: Normal Color, Warm/Dry Results/Procedures Lab Laboratory Tests 01/25/22 14:20 01/26/22 05:10 Patient resulted labs reviewed. Imaging: Reviewed Imaging Report Assessment/Plan Assessment and Plan Assess & Plan/Chief Complaint Hypoglycemia Dementia Hypokalemia Diarrhea Hypomagnesemia HTN HLD GERD Hypoglycemia in setting of insulin dependent diabetes -Possibly d/t insulin overdose as pt is inconsistent about who gives him his insulin -SSI A and levemir -Continue to monitor blood sugars Dementia -TeleICU started precedex, will wean pt off this as he was not able to wake up for exam today -Will expect increased AMS as pt is in unfamiliar setting Hypokalemia -KCl protocol Diarrhea -Unsure whether this has been ongoing or acute onset, of note he did not have this during prior admission -No further episodes of diarrhea since yesterday morning Hypomagnesemia -Mag Sulf/Dextrose HTN -Hydralazine prn -Restart home lisinopril 20mg HLD -Restart home atorvastatin GERD -protonix CAD -Aspirin 81mg Meningioma Disposition: Will wean precedex today. Continue to monitor blood sugar and encourage good oral intake. Likely to stay several days to develop plan of care. Will consult oncology social worker about d/c to shelter facility Diet: carbohydrate consistent Code status: Full code DVT prophylaxis: SCDs and ambulation GI ppx: Protonix LULI CROWELL MD 01/26/222123: Assessment/Plan Assessment and Plan Assess & Plan/Chief Complaint Hypoglycemia resolved. Now on sliding scale insulin. Having issues with delirium on underlying dementia requiring Precedex overnight. Wean as able. Diagnosis/Problems Diagnosis/Problems (1) T2DM (type 2 diabetes mellitus) Status: Acute Qualifiers: Qualified Codes: E11.649 - Type 2 diabetes mellitus with hypoglycemia without coma; Z79.4 - alf (current) use of insulin (2) Dementia Status: Acute Qualifiers: (3) Delirium Status: Acute (4) HTN (hypertension) Status: Chronic (5) Meningioma Status: Chronic Supervisory-Addendum Brief Verification & Attestation Participated in pt care: history, MDM, physical Personally performed: exam, history, MDM, supervision of care Care discussed with: Medical Student Procedures: n/a Results interpretation: Verified all documentation A medical student performed and documented this service in my presence. I reviewed and verified all information documented by the medical student and made modifications to such information, when appropriate. I personally performed the physical exam and medical decision making. STACI VAUGHN MED STUDENT Jan 26, 2022 13:33 LULI CROWELL MD Jan 26, 2022 21:24
[2022-01-26] MEDS ORDERED: LIDOCAINE UROJET 2% GEL 10 ML PKG TOP ONE (13:45)
[2022-01-26] MEDS ORDERED: LIDOCAINE UROJET 2% GEL 10 ML PKG ONE (13:54)
[2022-01-26] MEDS: traZODone 50 MG (DESYREL) TAB PO SCH ×2 (21:11→22:43)
[2022-01-26] MEDS: hydrALAZINE (APESOLINE) 20 MG/ML VIAL IV PRN (22:33)
[2022-01-27 05:30] LABS: BASOPHILS # (AUTO) 0.1 10^3/uL (0.0-0.1); BASOPHILS % (AUTO) 1 % (0-10); EOSINOPHILS # (AUTO) 0.2 10^3/uL (0.0-0.3); EOSINOPHILS % (AUTO) 2 % (0-10); HEMATOCRIT 45 % (40-54); HEMOGLOBIN 14.9 g/dL (13.3-17.7); LYMPHOCYTES # (AUTO) 1.3 10^3/uL (1.0-4.0); LYMPHOCYTES % (AUTO) 12 % (12-44); MEAN CORPUSCULAR HEMOGLOBIN 29 pg (25-34); MEAN CORPUSCULAR HGB CONC 33 g/dL (32-36); MEAN CORPUSCULAR VOLUME 88 fL (80-99); MEAN PLATELET VOLUME 10.6 fL (9.0-12.2); MONOCYTES # (AUTO) 0.8 10^3/uL (0.0-1.0); MONOCYTES % (AUTO) 8 % (0-12); NEUTROPHILS # (AUTO) 8.2 10^3/uL (1.8-7.8); NEUTROPHILS % (AUTO) 77 % (42-75); PLATELET COUNT 245 10^3/uL (130-400); WHITE BLOOD COUNT 10.6 10^3/uL (4.3-11.0)
[2022-01-27] MEDS: inSUlin ASPART (NovoLOG) 1 UNIT/0.01 ML (CHARGE PER UNIT) SC SCH ×4 (05:34→21:48)
[2022-01-27 05:52] LABS: ALBUMIN 3.2 GM/DL (3.2-4.5); BILIRUBIN,TOTAL 1.2 MG/DL (0.1-1.0); CALCIUM 8.7 MG/DL (8.5-10.1); CREATININE SERUM 0.94 MG/DL (0.60-1.30); MAGNESIUM 1.6 MG/DL (1.6-2.4); PHOSPHORUS 3.6 MG/DL (2.3-4.7); TOTAL PROTEIN 5.8 GM/DL (6.4-8.2)
[2022-01-27] MEDS: POTASSIUM CL 10MEQ/50ML IVPB 50 ML IV SCH ×2 (06:02→06:03)
[2022-01-27] MEDS: MAGNESIUM 1 GM/100 ML IVPB 100 ML IV SCH ×2 (06:03)
[2022-01-27] MEDS: ALPRAZolam 0.5 MG (XANAX) TAB PO SCH ×3 (08:21→17:09)
[2022-01-27] MEDS: lisINopril 20 MG (PRINIVIL) TABLET PO SCH (08:21)
[2022-01-27] MEDS: ASPIRIN 81 MG CHEW (CHILDREN'S ASA) PO SCH (08:21)
[2022-01-27] MEDS: PANTOPRAZOLE 40 MG (PROTONIX) TAB PO SCH (08:21)
--- NOTE | 2022-01-27 09:20 | Tele-ICU Progress Note ---
Progress Note video rounds completed 76 y/o male with hx of DM admitted with hypoglycemia Has hx of prostate cancer and meningioma Now overall improved PE: sitting up in bed eating breakfast All VSS PLAN blood sugar normalized Focused Exam Height, Weight, BMI Height: 6'0" Weight: 245lbs. 0.0oz. 111.270041kt; 36.23 BMI Method:Stated Labs Laboratory Tests 01/27/22 05:01 Results Results/Procedures Lab Laboratory Tests 01/25/22 14:20 01/26/22 05:10 01/27/22 05:01 Results Labs Labs Laboratory Tests 01/26/22 11:31: Glucometer 176H 01/26/22 16:11: Glucometer 144H 01/27/22 05:01: White Blood Count 10.6, Red Blood Count 5.13, Hemoglobin 14.9, Hematocrit 45, Mean Corpuscular Volume 88, Mean Corpuscular Hemoglobin 29, Mean Corpuscular Hemoglobin Concent 33, Red Cell Distribution Width 13.9, Platelet Count 245, Mean Platelet Volume 10.6, Immature Granulocyte % (Auto) 0, Neutrophils (%) (Auto) 77H, Lymphocytes (%) (Auto) 12, Monocytes (%) (Auto) 8, Eosinophils (%) (Auto) 2, Basophils (%) (Auto) 1, Neutrophils # (Auto) 8.2H, Lymphocytes # (Auto) 1.3, Monocytes # (Auto) 0.8, Eosinophils # (Auto) 0.2, Basophils # (Auto) 0.1, Immature Granulocyte # (Auto) 0.0, Sodium Level 137, Potassium Level 4.0, Chloride Level 101, Carbon Dioxide Level 20L, Anion Gap 16H, Blood Urea Nitrogen 21H, Creatinine 0.94, Estimat Glomerular Filtration Rate 84, BUN/Creatinine Ratio 22, Glucose Level 109H, Calcium Level 8.7, Corrected Calcium 9.3, Phosp horus Level 3.6, Magnesium Level 1.6, Total Bilirubin 1.2H, Aspartate Amino Transf (AST/SGOT) 46H, Alanine Aminotransferase (ALT/SGPT) 22, Alkaline Phosphatase 98, Total Protein 5.8L, Albumin 3.2 Microbiology 01/25/22 MRSA Screen - Final, Complete MRSA not isolated REINALDO DUBON MD Jan 27, 2022 09:20
--- NOTE | 2022-01-27 09:39 | Progress Note - Hospitalist ---
STACI VAUGHN A MED STUDENT 01/27/22 0939: Subjective HPI/CC On Admission Date Seen by Provider: Jan 27, 2022 Time Seen by Provider: 08:30 Tr is a 76 yo demented male who was admitted for hypoglycemia. Past medical hx includes insulin dependent diabetes, meningioma, prostate cancer, TIA, CAD with stent placement, HTN, HLD, GERD. Pt was just discharged earlier this week for HTN urgency. ED reports state family could not care for him at home anymore and would like pt to stay so they can get placement in a facility. Pt reportedly had a blood sugar of 44 upon EMS arrival and was given D10 which improved his blood sugar and lethargy. Pt is only alert and oriented to self. He is a poor historian and provides inconsistent history. When asked who gives him his insulin he sometimes states he does and other times states his does. He did have an episode of diarrhea this morning. He does not report any pain. Pt's reports she would like him to go to a [place] [facility] facility then have them both go to an assisted living facility. Will consult case management social worker. Subjective/Events-last exam Pt being seen in f/u for hypoglycemia in setting of insulin dependent T2DM and dementia. Pt alert and oriented to self and place this morning. Pt reports he is feeling well this morning. Only concerns are reflux, productive cough and back pain. Pt given protonix for reflux. He is aware of plan to go to SNF at [facility] and is agreeable to this. Pt did have temperature of 37.6C during the night, but WBC remains wnl. Anion gap is elevated at 16, but fasting blood glucose is 109. ROS negative unless otherwise stated. Review of Systems General: No Chills, No Fatigue HEENT: No Head Aches, No Visual Changes Pulmonary: No Dyspnea; Cough Cardiovascular: No: Chest Pain, Palpitations Gastrointestinal: Other (reflux); No: Nausea, Vomiting Genitourinary: No Dysuria, No Frequency Musculoskeletal: back pain Neurological: No: Weakness, Numbness Objective Exam Vital Signs Vital Signs Date Time Temp Pulse Resp B/P (MAP) Pulse Ox O2 Delivery O2 Flow Rate FiO2 01/27/22 12:00 82 27 159/77 (104) Room Air 01/27/22 11:25 36.3 01/27/22 11:00 90 Capillary Refill : Less Than 3 Seconds General Appearance: Chronically ill, Obese HEENT: PERRL/EOMI, Moist Mucous Membranes Neck: Full Range of Motion, Non Tender Respiratory: Chest Non Tender, No Accessory Muscle Use, No Respiratory Distress, Decreased Breath Sounds Cardiovascular: Regular Rate, Rhythm, No Murmur Gastrointestinal: Normal Bowel Sounds, Non Tender, Soft Extremity: Normal Inspection, Non Tender, No Pedal Edema Neurologic/Psychiatric: Alert, Normal Mood/Affect, Disoriented (improved from yesterday) Skin: Normal Color, Diaphoresis Results/Procedures Lab Laboratory Tests 01/27/22 05:01 Patient resulted labs reviewed. Imaging: Reviewed Imaging Report Assessment/Plan Assessment and Plan Assess & Plan/Chief Complaint Hypoglycemia Dementia Hypokalemia Diarrhea Hypomagnesemia HTN HLD GERD Hypoglycemia in setting of insulin dependent diabetes -Possibly d/t insulin overdose as pt is inconsistent about who gives him his insulin -SSI A -Add levemir 10 units -Anion gap increased to 16 today in setting of fasting blood sugar of 106 and post prandial sugars above 300 -Continue to monitor blood sugars Dementia -Weaned off precedex -A/O x2 this morning, improved from yesterday Hypokalemia -Resolved -KCl protocol Diarrhea -Unsure whether this has been ongoing or acute onset, of note he did not have this during prior admission -No further episodes of diarrhea since 01/25 Hypomagnesemia -Resolved -Mag Sulf/Dextrose HTN -Hydralazine prn - Lisinopril 20mg HLD -Atorvastatin GERD -Protonix CAD -Aspirin 81mg Meningioma Disposition: Will transfer to general medical floor today as pt is weaned off precedex and a/o x2. Referral faxed by SS to [facility] in [place]. If accepted, placement won't be likely until Saturday. Will continue to monitor blood sugars in the meantime. Diet: carbohydrate consistent Code status: Full code DVT prophylaxis: SCDs and ambulation GI ppx: Protonix Diagnosis/Problems Diagnosis/Problems (1) Meningioma, cerebral Status: Chronic (2) HTN (hypertension) Status: Chronic Qualifiers: Qualified Codes: I10 - Essential (primary) hypertension (3) T2DM (type 2 diabetes mellitus) Status: Acute Qualifiers: Qualified Codes: E11.649 - Type 2 diabetes mellitus with hypoglycemia without coma; Z79.4 - balancer scale (current) use of insulin (4) Dementia Status: Acute Qualifiers: LULI CROWELL MD 01/27/22 1320: Subjective HPI/CC On Admission Time Seen by Provider: 11:00 Assessment/Plan Assessment and Plan Assess & Plan/Chief Complaint No longer requiring Precedex. No agitation this morning. Hypoglycemia resolved, now blood sugars increasing, begin Levemir. Planning for SNF placement. Diagnosis/Problems Diagnosis/Problems (1) Dementia Status: Acute Qualifiers: (2) T2DM (type 2 diabetes mellitus) Status: Acute Qualifiers: Qualified Codes: E11.649 - Type 2 diabetes mellitus with hypoglycemia without coma; Z79.4 - half-way (current) use of insulin (3) HTN (hypertension) Status: Chronic Qualifiers: Qualified Codes: I10 - Essential (primary) hypertension (4) Meningioma, cerebral Status: Chronic Supervisory-Addendum Brief Verification & Attestation Participated in pt care: history, MDM, physical Personally performed: exam, history, MDM, supervision of care Care discussed with: Medical Student Procedures: n/a Results interpretation: Verified all documentation A medical student performed and documented this service in my presence. I reviewed and verified all information documented by the medical student and made modifications to such information, when appropriate. I personally performed the physical exam and medical decision making. STACI VAUGHN A MED STUDENT Jan 27, 2022 09:39 LULI CROWELL MD Jan 27, 2022 13:20
--- NOTE | 2022-01-27 14:07 | Physical Therapy Evaluation ---
PT Evaluation-General Medical Diagnosis Admission Date Jan 25, 2022 at 00:12 Medical Diagnosis: hypoglycemia Onset Date: Jan 25, 2022 Therapy Diagnosis Therapy Diagnosis: decreased mobility Height/Weight Height (Feet): 6 Height (Inches): 0 Weight (Pounds): 245 Weight (Ounces): 0.0 Precautions Precautions/Isolations: Standard Precautions Weight Bear Status Right Lower Extremity: Right Full Weight Bearing Left Lower Extremity: Left Full Weight Bearing Referral Physician: Dr. Vogt Reason for Referral: Evaluation/Treatment Medical History Pertinent Medical History: CAD, DM, GERD, HTN Additional Medical History meningioma, prostate CA, TIA, dementia Current History Pt. with dementia and family unable to care for at home, admit with hypoglycemia. Reviewed History: Yes Social History Home: Single Level Current Living Status: Spouse Prior Prior Level of Function SCALE: Activities may be completed with or without assistive devices. 1-Rirzcaxntl-utnqyhd completes the activity by him/herself with no assistance from a helper. 5-Set-up or Clean-up Assistance-helper sets up or cleans up; patient completes activity. [place] assists only prior to or following the activity. 4-Supervision or Touching Assistance-helper provides verbal cues and/or touching/steadying and/or contact guard assistance as patient completes activity. Assistance may be provided throughout the activity or intermittently. 3-Partial/Moderate Assistance-helper does LESS THAN HALF the effort. [place] lifts, holds or supports trunk or limbs, but provides less than half the effort. 2-Substantial/Maximal Assistance-helper does MORE THAN HALF the effort. [place] lifts or holds trunk or limbs and provides more than half the effort. 4-Lnbrghdhr-boazyf does ALL the effort. Patient does none of the effort to complete the activity. Or, the assistance of 2 or more helpers is required for the patient to complete the activity. If activity was not attempted, code reason: 7-Patient Refused. 9-Not Applicable-not attempted and the patient did not perform the activity before the current illness, exacerbation or injury. 10-Not Attempted due to Environmental Limitations-(lack of equipment, weather restraints, etc.). 88-Not Attempted due to Medical Conditions or Safety Concerns. Bed Mobility: 6 Transfers (B,C,W/C): 6 Gait: 6 Prior Device Use: cane PT Evaluation-Current Subjective Pt. in bed, states he is feeling well but agrees to sit up in chair. Pt. frequently states how sorry he is that therapist/tech having to do so much. Objective Patient Orientation: Person, Confused Attachments: Thibodeaux Catheter, IV ROM/Strength ROM Upper Extremities WFL ROM Lower Extremities WFL Strength Upper Extremities WFL Strength Lower Extremities Grossly 3+/5 Integumentary/Posture Integumentary see nursing notes Bowel Incontinence: No Bladder Incontinence: Thibodeaux Cath Posture generally upright Neuromuscular (Tone, Coordination, Reflexes) unremarkable Sensory Vision: Functional Hearing: Impaired Transfers Lying to Sitting/Side of Bed(Q: 4 Sit to Stand (QC): 1 Chair/Lop-xd-Bjeke Xfer(QC): 1 min-mod A x 2 with sit to stand at FWW and transfer bed to chair Gait Does the Patient Walk?: Yes Mode of Locomotion: Walk Anticipated Mode of Locomotion: Walk Comments/Gait Description pt. unsafe to ambulate at this time. Balance Sitting Static: Good Sitting Dynamic: Good Standing Static: Fair Standing Dynamic: Fair Assessment/Needs Pt. is a 76 y.o. male with decreased mobility. Pt. needs assist x 1-2 at present time and unsafe to ambulate due to weakness and fatigue but should improve soon. Pt. would benefit from skilled PT to improve strength and mobility, unknown discharge plans at this time. Rehab Potential: Good PT Short Term Goals Short Term Goals Time Frame: Feb 03, 2022 Roll Left & Right: 6 Sit to lyin Lying to sitting on side of be: 6 Sit to stand: 4 Chair/qon-nz-gbfjn transfer: 4 Walk 10 feet: 4 Walk 50 feet with two turns: 4 Walk 150 feet: 4 PT Plan Problem List Problem List: Activity Tolerance, Functional Strength, Safety, Balance, Gait, Transfer, Bed Mobility, ROM Treatment/Plan Treatment Plan: Continue Plan of Care Treatment Plan: Bed Mobility, Concurrent Therapy, Education, Functional Activity Bianca, Functional Strength, Gait, Safety, Therapeutic Exercise, Transfers Treatment Duration: Feb 03, 2022 Frequency: 6 times per week Estimated Hrs Per Day: .25 hour per day Patient and/or Family Agrees t: Yes Time Time In: 1216 Time Out: 1231 DATE: Jan 27, 2022 Total Billed Treatment Time: 15 Total Billed Treatment 1, ARIADNE 15' TIM WINSTON PT Jan 27, 2022 14:07
[2022-01-27 19:00] VITALS: BP 120/69
[2022-01-27] MEDS: traZODone 50 MG (DESYREL) TAB PO SCH (20:26)
[2022-01-27 23:40] VITALS: BP 139/67
[2022-01-28] MEDS: ALPRAZolam 0.5 MG (XANAX) TAB PO SCH ×4 (01:40→16:48)
[2022-01-28 03:52] VITALS: BP 109/63
[2022-01-28] MEDS: POTASSIUM CL 10MEQ/50ML IVPB 50 ML IV SCH (06:00)
[2022-01-28] MEDS: MAGNESIUM 1 GM/100 ML IVPB 100 ML IV SCH ×3 (06:00→09:01)
[2022-01-28] MEDS: inSUlin ASPART (NovoLOG) 1 UNIT/0.01 ML (CHARGE PER UNIT) SC SCH ×4 (06:25→20:37)
[2022-01-28 06:50] LABS: BASOPHILS # (AUTO) 0.1 10^3/uL (0.0-0.1); BASOPHILS % (AUTO) 1 % (0-10); EOSINOPHILS # (AUTO) 0.2 10^3/uL (0.0-0.3); EOSINOPHILS % (AUTO) 3 % (0-10); HEMATOCRIT 44 % (40-54); HEMOGLOBIN 14.2 g/dL (13.3-17.7); LYMPHOCYTES # (AUTO) 1.1 10^3/uL (1.0-4.0); LYMPHOCYTES % (AUTO) 15 % (12-44); MEAN CORPUSCULAR HEMOGLOBIN 29 pg (25-34); MEAN CORPUSCULAR HGB CONC 33 g/dL (32-36); MEAN CORPUSCULAR VOLUME 88 fL (80-99); MEAN PLATELET VOLUME 10.2 fL (9.0-12.2); MONOCYTES # (AUTO) 0.6 10^3/uL (0.0-1.0); MONOCYTES % (AUTO) 9 % (0-12); NEUTROPHILS # (AUTO) 5.2 10^3/uL (1.8-7.8); NEUTROPHILS % (AUTO) 72 % (42-75); PLATELET COUNT 253 10^3/uL (130-400); WHITE BLOOD COUNT 7.2 10^3/uL (4.3-11.0)
[2022-01-28 07:07] LABS: ALBUMIN 3.2 GM/DL (3.2-4.5); BILIRUBIN,TOTAL 0.9 MG/DL (0.1-1.0); CALCIUM 8.7 MG/DL (8.5-10.1); CREATININE SERUM 1.14 MG/DL (0.60-1.30); MAGNESIUM 1.6 MG/DL (1.6-2.4); PHOSPHORUS 3.2 MG/DL (2.3-4.7); POTASSIUM 3.6 MMOL/L (3.6-5.0); TOTAL PROTEIN 5.5 GM/DL (6.4-8.2)
[2022-01-28] MEDS ORDERED: KCL 20 MEQ TAB (K-DUR) PO ONE (07:45)
[2022-01-28 07:49] VITALS: BP 182/93
[2022-01-28] MEDS: ASPIRIN 81 MG CHEW (CHILDREN'S ASA) PO SCH (08:52)
[2022-01-28] MEDS: lisINopril 20 MG (PRINIVIL) TABLET PO SCH (08:52)
[2022-01-28] MEDS: PANTOPRAZOLE 40 MG (PROTONIX) TAB PO SCH (08:52)
[2022-01-28 11:17] VITALS: BP 179/86
[2022-01-28] MEDS ORDERED: lisINopril 20 MG (PRINIVIL) TABLET PO ONE (11:30)
[2022-01-28] MEDS: ACETAMINOPHEN 325 MG TABLET PO PRN ×2 (14:44→20:37)
[2022-01-28] MEDS ORDERED: risperiDONE 0.25 MG (RisperDAL) TAB PO ONE (14:45)
[2022-01-28 16:39] VITALS: BP 163/89
[2022-01-28] MEDS ORDERED: HALOPERIDOL 0.5 MG (HALDOL) TAB PO ONE ×2 (18:00→20:15)
--- NOTE | 2022-01-28 18:00 | Progress Note - Hospitalist ---
Subjective HPI/CC On Admission Date Seen by Provider: Jan 28, 2022 Time Seen by Provider: 11:15 rT is a 76 yo demented male who was admitted for hypoglycemia. Past medical hx includes insulin dependent diabetes, meningioma, prostate cancer, TIA, CAD with stent placement, HTN, HLD, GERD. Pt was just discharged earlier this week for HTN urgency. ED reports state family could not care for him at home anymore and would like pt to stay so they can get placement in a facility. Pt reportedly had a blood sugar of 44 upon EMS arrival and was given D10 which improved his blood sugar and lethargy. Pt is only alert and oriented to self. He is a poor historian and provides inconsistent history. When asked who gives him his insulin he sometimes states he does and other times states his does. He did have an episode of diarrhea this morning. He does not report any pain. Pt's reports she would like him to go to a assisted facility then have them both go to an assisted living facility. Will consult social media project manager. Subjective/Events-last exam He has no complaints. He is sitting in bed. He is denies pain. He is trying to get out of bed. Objective Exam Vital Signs Vital Signs Date Time Temp Pulse Resp B/P (MAP) Pulse Ox O2 Delivery O2 Flow Rate FiO2 01/28/22 16:39 36.4 83 20 163/89 (113) 93 Room Air Capillary Refill : Less Than 3 Seconds General Appearance: No Apparent Distress, Chronically ill, Obese Respiratory: Lungs Clear, No Respiratory Distress Cardiovascular: Regular Rate, Rhythm, No Murmur Gastrointestinal: Normal Bowel Sounds, Non Tender, Soft Extremity: Normal Inspection, Pedal Edema Neurologic/Psychiatric: Alert, Disoriented, Motor Weakness Skin: Normal Color, Warm/Dry Results/Procedures Lab Laboratory Tests 01/28/22 06:35 Patient resulted labs reviewed. Imaging: Reviewed Imaging Report Assessment/Plan Assessment and Plan Assess & Plan/Chief Complaint T2DM with hypoglycemia Persistent hypoglycemia on arrival Now resolved Started on Levemir, increase Sliding scale insulin Dementia Delirium Haldol as needed Xanax as needed Hypokalemia Hypomagnesemia Monitor and replace as needed HTN Increase Lisinopril Hydralazine as needed HLD GERD CAD Meningioma Continue home meds DVT prophylaxis: Lovenox Diagnosis/Problems Diagnosis/Problems (1) Dementia Status: Acute Qualifiers: Dementia behavioral or psychological symptom: with agitation (2) Delirium Status: Acute (3) T2DM (type 2 diabetes mellitus) Status: Acute Qualifiers: Diabetes mellitus senior partner insulin use: with senior partner use Diabetes mellitus complication status: with hypoglycemia Diabetes mellitus complication detail: without coma Qualified Codes: E11.649 - Type 2 diabetes mellitus with hypoglycemia without coma; Z79.4 - warehouse 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
[2022-01-28 20:00] VITALS: BP 137/90
[2022-01-28] MEDS: traZODone 50 MG (DESYREL) TAB PO SCH (20:36)
[2022-01-28] MEDS ORDERED: risperiDONE 0.25 MG (RisperDAL) TAB PO SCH (21:00)
[2022-01-28] MEDS ORDERED: HALOPERIDOL 2 MG (HALDOL) TABLET PO ONE (22:00)
[2022-01-29] VITALS (7 sets, daily range): BP systolic 125–186; BP diastolic 62–96
[2022-01-29] MEDS ORDERED: HALOPERIDOL 2 MG (HALDOL) TABLET PO ONE
[2022-01-29] MEDS: ALPRAZolam 0.5 MG (XANAX) TAB PO SCH ×3 (00:02→16:17)
[2022-01-29] MEDS: inSUlin ASPART (NovoLOG) 1 UNIT/0.01 ML (CHARGE PER UNIT) SC SCH ×4 (05:33→21:24)
[2022-01-29 05:46] LABS: BASOPHILS % (AUTO) 1 % (0-10); EOSINOPHILS # (AUTO) 0.3 10^3/uL (0.0-0.3); EOSINOPHILS % (AUTO) 5 % (0-10); HEMATOCRIT 46 % (40-54); LYMPHOCYTES % (AUTO) 14 % (12-44); MEAN CORPUSCULAR HEMOGLOBIN 29 pg (25-34); MEAN CORPUSCULAR HGB CONC 33 g/dL (32-36); MEAN CORPUSCULAR VOLUME 88 fL (80-99); MEAN PLATELET VOLUME 10.1 fL (9.0-12.2); MONOCYTES # (AUTO) 0.6 10^3/uL (0.0-1.0); MONOCYTES % (AUTO) 8 % (0-12); NEUTROPHILS # (AUTO) 4.8 10^3/uL (1.8-7.8); NEUTROPHILS % (AUTO) 72 % (42-75); PLATELET COUNT 272 10^3/uL (130-400); WHITE BLOOD COUNT 6.7 10^3/uL (4.3-11.0)
[2022-01-29 06:52] LABS: ALBUMIN 3.4 GM/DL (3.2-4.5); BILIRUBIN,TOTAL 0.8 MG/DL (0.1-1.0); CALCIUM 9.3 MG/DL (8.5-10.1); CREATININE SERUM 1.07 MG/DL (0.60-1.30); MAGNESIUM 1.6 MG/DL (1.6-2.4); PHOSPHORUS 2.8 MG/DL (2.3-4.7); POTASSIUM 3.9 MMOL/L (3.6-5.0); TOTAL PROTEIN 5.9 GM/DL (6.4-8.2)
[2022-01-29] MEDS: MAGNESIUM 1 GM/100 ML IVPB 100 ML IV SCH ×3 (06:54→09:32)
[2022-01-29] MEDS: POTASSIUM CL 10MEQ/50ML IVPB 50 ML IV SCH (06:54)
[2022-01-29] MEDS: lisINopril 40 MG (PRINIVIL) TABLET PO SCH (07:52)
[2022-01-29] MEDS: PANTOPRAZOLE 40 MG (PROTONIX) TAB PO SCH (07:52)
[2022-01-29] MEDS: ASPIRIN 81 MG CHEW (CHILDREN'S ASA) PO SCH (07:52)
--- NOTE | 2022-01-29 10:34 | Physical Therapy Daily Note ---
PT Daily Note-Current Subjective Patient very confused and hallucinating. Live sitter present. Pain Section J - Health Conditions 1. Rarely or not at all 2. Occasionally 3. Frequently 4. Almost constantly 8. Unable to answer Pain Effect on Sleep: 8 Pain Interference with Therapy: 8 Pain Interference w/Day-to-Day: 8 Mental Status Patient Orientation: Confused Transfers SCALE: Activities may be completed with or without assistive devices. 9-Dkrbbsozkg-xopzopm completes the activity by him/herself with no assistance from a helper. 5-Set-up or Clean-up Assistance-helper sets up or cleans up; patient completes activity. [place] assists only prior to or following the activity. 4-Supervision or Touching Assistance-helper provides verbal cues and/or touching/steadying and/or contact guard assistance as patient completes activ ity. Assistance may be provided throughout the activity or intermittently. 3-Partial/Moderate Assistance-helper does LESS THAN HALF the effort. [place] lifts, holds or supports trunk or limbs, but provides less than half the effort. 2-Substantial/Maximal Assistance-helper does MORE THAN HALF the effort. [place] lifts or holds trunk or limbs and provides more than half the effort. 1-Qlqkofxat-fyvoez does ALL the effort. Patient does none of the effort to complete the activity. Or, the assistance of 2 or more helpers is required for the patient to complete the activity. If activity was not attempted, code reason: 7-Patient Refused. 9-Not Applicable-not attempted and the patient did not perform the activity before the current illness, exacerbation or injury. 10-Not Attempted due to Environmental Limitations-(lack of equipment, weather restraints, etc.). 88-Not Attempted due to Medical Conditions or Safety Concerns. Sit to Lying (QC): 2 Sit to Stand (QC): 3 Chair/Uuj-nx-Xhkgi Xfer(QC): 3 Weight Bearing Right Lower Extremity: Right Full Weight Bearing Left Lower Extremity: Left Full Weight Bearing Gait Training Distance: 10' Walk 10 feet (QC): 3 Walk 50 ft with 2 Turns(QC): 88 Walk 150 ft (QC): 88 Gait Assistive Device: FWW functional gait sequence when up with FWW Assessment Patient complete unaware of environmental safety concerns and requires a live sitter. Patient unable to follow simple direction. PT Short Term Goals Short Term Goals Time Frame: Feb 03, 2022 Roll Left & Right: 6 Sit to lyin Lying to sitting on side of be: 6 Sit to stand: 4 Chair/lqx-fi-xzukn transfer: 4 Walk 10 feet: 4 Walk 50 feet with two turns: 4 Walk 150 feet: 4 PT Plan Treatment/Plan Treatment Plan: Continue Plan of Care Treatment Plan: Bed Mobility, Concurrent Therapy, Education, Functional Activity Bianca, Functional Strength, Gait, Safety, Therapeutic Exercise, Transfers Treatment Duration: Feb 03, 2022 Frequency: 6 times per week Estimated Hrs Per Day: .25 hour per day Patient and/or Family Agrees t: Yes Time Time In: 935 Time Out: 948 DATE: Jan 29, 2022 Total Billed Treatment Time: 13 Total Billed Treatment 1 visit FA 13 min CHRIS FONSECA PT Jan 29, 2022 10:34
[2022-01-29] MEDS: risperiDONE 0.5 MG (RisperDAL) TABLET PO SCH ×2 (12:06→21:20)
--- NOTE | 2022-01-29 12:07 | Progress Note - Hospitalist ---
Subjective HPI/CC On Admission Date Seen by Provider: Jan 29, 2022 Tr is a 76 yo demented male who was admitted for hypoglycemia. Past medical hx includes insulin dependent diabetes, meningioma, prostate cancer, TIA, CAD with stent placement, HTN, HLD, GERD. Pt was just discharged earlier this week for HTN urgency. ED reports state family could not care for him at home anymore and would like pt to stay so they can get placement in a facility. Pt reportedly had a blood sugar of 44 upon EMS arrival and was given D10 which improved his blood sugar and lethargy. Pt is only alert and oriented to self. He is a poor historian and provides inconsistent history. When asked who gives him his insulin he sometimes states he does and other times states his does. He did have an episode of diarrhea this morning. He does not report any pain. Pt's reports she would like him to [facility] a [facility] facility then have them both go to an assisted living facility. Will consult social media executive. Subjective/Events-last exam Pt very agitated overnight. Discussed this with his as patient is very confused. Gave recommendation for Behavioral Health Unit and she is hesitant to send him there. Requests referral be sent to [facility] in [facility]. Objective Exam Vital Signs Vital Signs Date Time Temp Pulse Resp B/P (MAP) Pulse Ox O2 Delivery O2 Flow Rate FiO2 01/29/22 08:01 96 Room Air 01/29/22 07:18 36.1 85 18 142/76 (98) Capillary Refill : Less Than 3 Seconds General Appearance: Chronically ill, Obese Respiratory: Lungs Clear, No Accessory Muscle Use Cardiovascular: Regular Rate, Rhythm, No Murmur Neurologic/Psychiatric: Alert, Oriented x3 Results/Procedures Lab Laboratory Tests 01/29/22 05:29 Patient resulted labs reviewed. Imaging: Reviewed Imaging Report Assessment/Plan Assessment and Plan Assess & Plan/Chief Complaint T2DM with hypoglycemia Persistent hypoglycemia on arrival Now resolved Continue Levemir Sliding scale insulin Dementia with behavioral issues Delirium Haldol as needed Xanax as needed Recommended placement to [facility], hesitant- will attempt [facility] but I informed that SNF may not be comfortable with admission given his behaviors at night Risperdal added Hypokalemia Hypomagnesemia Monitor and replace as needed HTN Continue Lisinopril Hydralazine as needed HLD GERD CAD Meningioma Continue home meds DVT prophylaxis: JOHN Porter MD Jan 29, 2022 12:07
[2022-01-29] MEDS: hydrALAZINE (APESOLINE) 20 MG/ML VIAL IV PRN ×2 (12:12→21:20)
--- NOTE | 2022-01-29 12:32 | Speech Therapy Progress Note ---
Therapy Progress Note ST received the cognitive evaluation consultation, completed a chart review, and attempted the assessment at 1215. At this time, the sitter and the patient's RN were present. The ST attempted the evaluation, however, the patient remained confused, referring to the clinician as, "Britt" and communication the necessity to "picking table worker eggs and other animals." Due to the level of confusion, the clinician is unable to complete a purposeful evaluation. ST will continue to attempt completion as schedule allows and the patient participates appropriately. JOCELYN LARA Jan 29, 2022 12:32
[2022-01-29] MEDS: ACETAMINOPHEN 325 MG TABLET PO PRN (14:51)
[2022-01-29] MEDS: ZIPRASIDONE 20 MG INJ (GEODON) VIAL IM PRN ×2 (17:57→22:10)
[2022-01-29] MEDS: WATER (STERILE) FOR INJ 10 ML BTL INJ SCH (17:57)
[2022-01-29] MEDS: traZODone 50 MG (DESYREL) TAB PO SCH (21:20)
[2022-01-29] MEDS ORDERED: HYDROcodone/APAP 5 MG/325 MG (LORTAB) TAB ONE (22:28)
[2022-01-29] MEDS: HYDROcodone/APAP 5 MG/325 MG (LORTAB) TAB PO PRN (22:31)
[2022-01-30] MEDS: ALPRAZolam 0.5 MG (XANAX) TAB PO SCH ×3 (00:36→17:09)
[2022-01-30] MEDS: WATER (STERILE) FOR INJ 10 ML BTL INJ SCH ×2 (02:21→10:13)
[2022-01-30] MEDS: ZIPRASIDONE 20 MG INJ (GEODON) VIAL IM PRN ×2 (02:21→10:12)
[2022-01-30] MEDS ORDERED: morphine INJ 4 MG/ML 1 ML (VIAL/SYRINGE) IVP PRN ×2 (02:45)
[2022-01-30 04:00] VITALS: BP 178/80
[2022-01-30] MEDS: hydrALAZINE (APESOLINE) 20 MG/ML VIAL IV PRN (05:51)
[2022-01-30 06:14] LABS: BASOPHILS % (AUTO) 1 % (0-10); EOSINOPHILS # (AUTO) 0.2 10^3/uL (0.0-0.3); EOSINOPHILS % (AUTO) 3 % (0-10); HEMATOCRIT 45 % (40-54); LYMPHOCYTES # (AUTO) 0.8 10^3/uL (1.0-4.0); LYMPHOCYTES % (AUTO) 12 % (12-44); MEAN CORPUSCULAR HEMOGLOBIN 29 pg (25-34); MEAN CORPUSCULAR HGB CONC 33 g/dL (32-36); MEAN CORPUSCULAR VOLUME 88 fL (80-99); MEAN PLATELET VOLUME 10.1 fL (9.0-12.2); MONOCYTES # (AUTO) 0.7 10^3/uL (0.0-1.0); MONOCYTES % (AUTO) 11 % (0-12); NEUTROPHILS % (AUTO) 73 % (42-75); PLATELET COUNT 269 10^3/uL (130-400); WHITE BLOOD COUNT 6.9 10^3/uL (4.3-11.0)
[2022-01-30 06:53] LABS: ALBUMIN 3.3 GM/DL (3.2-4.5); BILIRUBIN,TOTAL 0.9 MG/DL (0.1-1.0); CALCIUM 8.9 MG/DL (8.5-10.1); CREATININE SERUM 1.13 MG/DL (0.60-1.30); MAGNESIUM 1.8 MG/DL (1.6-2.4); PHOSPHORUS 3.4 MG/DL (2.3-4.7); POTASSIUM 5.1 MMOL/L (3.6-5.0); TOTAL PROTEIN 6.1 GM/DL (6.4-8.2)
[2022-01-30] MEDS: inSUlin ASPART (NovoLOG) 1 UNIT/0.01 ML (CHARGE PER UNIT) SC SCH ×4 (06:54→21:35)
[2022-01-30] MEDS: MAGNESIUM 1 GM/100 ML IVPB 100 ML IV SCH (06:56)
[2022-01-30] MEDS: POTASSIUM CL 10MEQ/50ML IVPB 50 ML IV SCH (06:56)
[2022-01-30 08:33] VITALS: BP 117/71
--- NOTE | 2022-01-30 08:38 | Speech Therapy Progress Note ---
Therapy Progress Note Speech pathology re-attempted the cognitive linguistic evaluation at 0835 on this date. At this time, the patient is sleeping. The staff requested the patient remain sleeping at this time due to events which occurred throughout the evening. The clinician respects and agrees with the request. ST will re-attempt the assessment as the patient is appropriate for participation. JOCELYN LARA Jan 30, 2022 08:38
[2022-01-30] MEDS: HYDROcodone/APAP 5 MG/325 MG (LORTAB) TAB PO PRN (10:13)
[2022-01-30] MEDS: risperiDONE 0.5 MG (RisperDAL) TABLET PO SCH ×2 (10:14→21:34)
[2022-01-30] MEDS: PANTOPRAZOLE 40 MG (PROTONIX) TAB PO SCH (10:14)
[2022-01-30] MEDS: ASPIRIN 81 MG CHEW (CHILDREN'S ASA) PO SCH (10:14)
[2022-01-30] MEDS: lisINopril 40 MG (PRINIVIL) TABLET PO SCH (10:15)
--- NOTE | 2022-01-30 10:30 | Progress Note - Hospitalist ---
Subjective HPI/CC On Admission Date Seen by Provider: Jan 30, 2022 Tr is a 76 yo demented male who was admitted for hypoglycemia. Past medical hx includes insulin dependent diabetes, meningioma, prostate cancer, TIA, CAD with stent placement, HTN, HLD, GERD. Pt was just discharged earlier this week for HTN urgency. ED reports state family could not care for him at home anymore and would like pt to stay so they can get placement in a facility. Pt reportedly had a blood sugar of 44 upon EMS arrival and was given D10 which improved his blood sugar and lethargy. Pt is only alert and oriented to self. He is a poor historian and provides inconsistent history. When asked who gives him his insulin he sometimes states he does and other times states his does. He did have an episode of diarrhea this morning. He does not report any pain. Pt's reports she would like him to [facility] a [facility] facility then have them both go to an assisted living facility. Will consult social media designer. Subjective/Events-last exam Pt sleeping. Was very agitated last night. Threw dinner and was slamming objects. Received IM geodon multiple times and now sleeping soundly. Objective Exam Vital Signs Vital Signs Date Time Temp Pulse Resp B/P (MAP) Pulse Ox O2 Delivery O2 Flow Rate FiO2 01/30/22 08:33 36.4 92 18 117/71 (86) 91 Room Air Capillary Refill : Less Than 3 Seconds General Appearance: Chronically ill, Obese Respiratory: Lungs Clear, No Respiratory Distress Cardiovascular: Regular Rate, Rhythm, No Murmur Neurologic/Psychiatric: Alert, Other (sleeping soundly) Results/Procedures Lab Laboratory Tests 01/30/22 06:04 Patient resulted labs reviewed. Imaging: Reviewed Imaging Report Assessment/Plan Assessment and Plan Assess & Plan/Chief Complaint T2DM with hypoglycemia Now resolved Continue Levemir Sliding scale insulin Dementia with behavioral issues Delirium Haldol as needed Xanax as needed SNF declined due to behaviors, DPOA contacted by social work and DPOA agreeable to [facility]. Risperdal Geodon prn Hypokalemia Hypomagnesemia Monitor and replace as needed HTN Continue Lisinopril Hydralazine as needed HLD GERD CAD Meningioma Continue home meds DVT prophylaxis: JOHN Porter MD Jan 30, 2022 10:30 am
[2022-01-30 11:01] VITALS: BP 119/60
--- NOTE | 2022-01-30 11:19 | Physical Therapy Daily Note ---
PT Daily Note-Current Subjective Patient is very lethargic due to medications. Does wake during session. Pain Section J - Health Conditions 1. Rarely or not at all 2. Occasionally 3. Frequently 4. Almost constantly 8. Unable to answer Pain Effect on Sleep: 8 Pain Interference with Therapy: 8 Pain Interference w/Day-to-Day: 8 Transfers SCALE: Activities may be completed with or without assistive devices. 8-Agwpthkazf-ypvfjwq completes the activity by him/herself with no assistance from a helper. 5-Set-up or Clean-up Assistance-helper sets up or cleans up; patient completes activity. [place] assists only prior to or following the activity. 4-Supervision or Touching Assistance-helper provides verbal cues and/or touching/steadying and/or contact guard assistance as patient completes activity. Assistance may be provided throughout the activity or intermittently. 3-Partial/Moderate Assistance-helper does LESS THAN HALF the effort. [place] lifts, holds or supports trunk or limbs, but provides less than half the effort. 2-Substantial/Maximal Assistance-helper does MORE THAN HALF the effort. [place] lifts or holds trunk or limbs and provides more than half the effort. 6-Kgfjxaoan-tgcoji does ALL the effort. Patient does none of the effort to complete the activity. Or, the assistance of 2 or more helpers is required for the patient to complete the activity. If activity was not attempted, code reason: 7-Patient Refused. 9-Not Applicable-not attempted and the patient did not perform the activity before the current illness, exacerbation or injury. 10-Not Attempted due to Environmental Limitations-(lack of equipment, weather restraints, etc.). 88-Not Attempted due to Medical Conditions or Safety Concerns. Roll Left & Right (QC): 1 (x 2) Weight Bearing Right Lower Extremity: Right Full Weight Bearing Left Lower Extremity: Left Full Weight Bearing Assessment Rolling activity during bed change dependent assist of 2 with patient becoming increasingly agitated and verbal. Patient is currently not safe for OOB activ ity. PT Short Term Goals Short Term Goals Time Frame: Feb 03, 2022 Roll Left & Right: 6 Sit to lyin Lying to sitting on side of be: 6 Sit to stand: 4 Chair/cdl-cf-qrnlv transfer: 4 Walk 10 feet: 4 Walk 50 feet with two turns: 4 Walk 150 feet: 4 PT Plan Treatment/Plan Treatment Plan: Continue Plan of Care Treatment Plan: Bed Mobility, Concurrent Therapy, Education, Functional Activity Bianca, Functional Strength, Gait, Safety, Therapeutic Exercise, Transfers Treatment Duration: Feb 03, 2022 Frequency: 6 times per week Estimated Hrs Per Day: .25 hour per day Patient and/or Family Agrees t: Yes Time Time In: 1010 Time Out: 1018 DATE: Jan 30, 2022 Total Billed Treatment Time: 8 Total Billed Treatment 1 visit FA 8 min CHRIS FONSECA PT Jan 30, 2022 11:19
[2022-01-30 15:49] VITALS: BP 132/80
--- NOTE | 2022-01-30 18:49 | Physician Query Clarification ---
Physician Query-General Query to Physician: The medical record reflects the following clinical scenario: The patient, in the setting of History/Risk factors, Dementia, brain tumor Clinical Findings Confusion, hitting wall and table, will not stay in bed, attempting to urinate in corner of room, attempting to break things, Treatment Haldol, Xanax, Risperdal, Geodon as needed, looking for "general psych placement" Question: Can you further specify dementia with behavior issues per the clinical indicators above? Please document your response in the Progress Notes or Discharge Summary. 1. Dementia with Behavior disturbance 2. Other, with explanation of clinical findings 3. Clinically undetermined, no explanation for clinical findings Please clarify and document your clinical opinion in the Progress Notes and Discharge Summary including the definitive and/or presumptive diagnosis, (suspected or probable), related to the above clinical findings. Please include clinical findings supporting your diagnosis. In responding to this query, please exercise your independent professional judgment. The purpose of this communication is to more accurately reflect the complexity of your patients condition. The fact that a question is asked does not imply that any particular answer is desired or expected. Thank you for timely response to this clarification. Clarita Molina RN, MSN Clinical Venture Capital Analyst [phone] [email or web address] PHYSICIAN RESPONSE: Based on the clinical findings in the record, please respond to the query above on this document as an addendum. Physician Response: Physician Response 1 If you have questions please contact: Sawmill Equipment Operator: Ext: Thank you for your time and cooperation. Clinical Venture Capital Analyst/Sawmill Equipment Operator This is a permanent part of the medical record CLARITA MOLINA Jan 30, 2022 18:49 JOHN CESAR MD Jan 31, 2022 20:29
[2022-01-30 19:02] VITALS: BP 113/67
[2022-01-30] MEDS: traZODone 50 MG (DESYREL) TAB PO SCH (21:34)
[2022-01-30 23:24] VITALS: BP 105/54
[2022-01-31] MEDS: ALPRAZolam 0.5 MG (XANAX) TAB PO SCH ×3 (02:19→17:18)
[2022-01-31 03:45] VITALS: BP 113/57
[2022-01-31] MEDS: inSUlin ASPART (NovoLOG) 1 UNIT/0.01 ML (CHARGE PER UNIT) SC SCH ×4 (05:45→20:55)
[2022-01-31 06:16] LABS: BASOPHILS # (AUTO) 0.1 10^3/uL (0.0-0.1); BASOPHILS % (AUTO) 1 % (0-10); EOSINOPHILS # (AUTO) 0.4 10^3/uL (0.0-0.3); EOSINOPHILS % (AUTO) 7 % (0-10); HEMATOCRIT 43 % (40-54); LYMPHOCYTES # (AUTO) 1.2 10^3/uL (1.0-4.0); LYMPHOCYTES % (AUTO) 20 % (12-44); MEAN CORPUSCULAR HEMOGLOBIN 29 pg (25-34); MEAN CORPUSCULAR HGB CONC 32 g/dL (32-36); MEAN CORPUSCULAR VOLUME 89 fL (80-99); MEAN PLATELET VOLUME 10.5 fL (9.0-12.2); MONOCYTES # (AUTO) 0.5 10^3/uL (0.0-1.0); MONOCYTES % (AUTO) 9 % (0-12); NEUTROPHILS # (AUTO) 3.8 10^3/uL (1.8-7.8); NEUTROPHILS % (AUTO) 64 % (42-75); PLATELET COUNT 294 10^3/uL (130-400); WHITE BLOOD COUNT 5.9 10^3/uL (4.3-11.0)
[2022-01-31 06:36] LABS: BILIRUBIN,TOTAL 0.8 MG/DL (0.1-1.0); CALCIUM 8.9 MG/DL (8.5-10.1); CREATININE SERUM 1.72 MG/DL (0.60-1.30); MAGNESIUM 1.8 MG/DL (1.6-2.4); PHOSPHORUS 4.5 MG/DL (2.3-4.7); POTASSIUM 4.1 MMOL/L (3.6-5.0); TOTAL PROTEIN 5.5 GM/DL (6.4-8.2)
[2022-01-31] MEDS: MAGNESIUM 1 GM/100 ML IVPB 100 ML IV SCH (06:46)
[2022-01-31] MEDS: POTASSIUM CL 10MEQ/50ML IVPB 50 ML IV SCH (06:47)
[2022-01-31 07:45] VITALS: BP 136/60
[2022-01-31] MEDS: ASPIRIN 81 MG CHEW (CHILDREN'S ASA) PO SCH (09:15)
[2022-01-31] MEDS: lisINopril 40 MG (PRINIVIL) TABLET PO SCH (09:15)
[2022-01-31] MEDS: risperiDONE 0.5 MG (RisperDAL) TABLET PO SCH ×2 (09:15→20:55)
[2022-01-31] MEDS: PANTOPRAZOLE 40 MG (PROTONIX) TAB PO SCH (09:15)
--- NOTE | 2022-01-31 09:31 | Speech Therapy Progress Note ---
Therapy Progress Note Speech pathology re-attempted the cognitive linguistic evaluation for a third time at 0832 on this date. At this time, the patient was sleeping. The RN provided the clinician will permission to attempt to wake patient. The patient remained with eyes closed, however, initially responded to the patient's orientation and simple yes and no questions. The patient's participation did display a mild improvement from the dates prior. The patient responded to his name and simple yes and no questions appropriately. The patient was unable to state the day of the week, the year, or his current location. Following orientation questions, the patient ceased participation and returned to sleep regardless of gentle clinician encouragement. ST will continue attempts for completion of the assessment as the patient is appropriate. Thank you. JOCELYN LARA Jan 31, 2022 09:31
--- NOTE | 2022-01-31 10:35 | Physical Therapy Daily Note ---
PT Daily Note-Current Subjective Pt. very lethargic, eyes closed throughout Rx, responds verbally very seldom, responds to commands 40% of time. Pain Location: No Pain Reported Section J - Health Conditions 1. Rarely or not at all 2. Occasionally 3. Frequently 4. Almost constantly 8. Unable to answer Pain Effect on Sleep: 8 Pain Interference with Therapy: 8 Pain Interference w/Day-to-Day: 8 Transfers SCALE: Activities may be completed with or without assistive devices. 2-Irwkiiyzhq-klyfsjm completes the activity by him/herself with no assistance from a helper. 5-Set-up or Clean-up Assistance-helper sets up or cleans up; patient completes activity. [place] assists only prior to or following the activity. 4-Supervision or Touching Assistance-helper provides verbal cues and/or touching/steadying and/or contact guard assistance as patient completes activity. Assistance may be provided throughout the activity or intermittently. 3-Partial/Moderate Assistance-helper does LESS THAN HALF the effort. [place] lifts, holds or supports trunk or limbs, but provides less than half the effort. 2-Substantial/Maximal Assistance-helper does MORE THAN HALF the effort. [place] lifts or holds trunk or limbs and provides more than half the effort. 5-Dunqqihpo-kawjnv does ALL the effort. Patient does none of the effort to complete the activity. Or, the assistance of 2 or more helpers is required for the patient to complete the activity. If activity was not attempted, code reason: 7-Patient Refused. 9-Not Applicable-not attempted and the patient did not perform the activity before the current illness, exacerbation or injury. 10-Not Attempted due to Environmental Limitations-(lack of equipment, weather restraints, etc.). 88-Not Attempted due to Medical Conditions or Safety Concerns. Roll Left & Right (QC): 2 Weight Bearing Right Lower Extremity: Right Full Weight Bearing Left Lower Extremity: Left Full Weight Bearing Exercises Supine Ex: Ankle pumps, Rolling, Heel Slides, Straight leg raise, Hip abd/add Supine Reps: 12 (all P/AAROM) Treatments many attempts made by this NEW CAR SALESPERSON and nursing who is present part of time to get pt alert enough to participate in PT and to eat/take meds . Pt. did open mouth with eyes closed to take a few bites ( see nurse notes) Assessment Current Status: Regressing not alert, very lethargic, poor participation in Rx PT Short Term Goals Short Term Goals Time Frame: Feb 03, 2022 Roll Left & Right: 6 Sit to lyin Lying to sitting on side of be: 6 Sit to stand: 4 Chair/ezs-hu-ajvsc transfer: 4 Walk 10 feet: 4 Walk 50 feet with two turns: 4 Walk 150 feet: 4 PT Plan Treatment/Plan Treatment Plan: Continue Plan of Care Treatment Plan: Bed Mobility, Concurrent Therapy, Education, Functional Activity Bianca, Functional Strength, Gait, Safety, Therapeutic Exercise, Transfers Treatment Duration: Feb 03, 2022 Frequency: 6 times per week Estimated Hrs Per Day: .25 hour per day Patient and/or Family Agrees t: Yes Time Time In: 1010 Time Out: 1031 DATE: Jan 31, 2022 Total Billed Treatment Time: 21 Total Billed Treatment 1,EX21m KATHRYN SMALL NEW CAR SALESPERSON Jan 31, 2022 10:35
[2022-01-31 12:12] VITALS: BP 120/58
--- NOTE | 2022-01-31 13:09 | Progress Note - Hospitalist ---
Subjective HPI/CC On Admission Date Seen by Provider: Jan 31, 2022 Tr is a 76 yo demented male who was admitted for hypoglycemia. Past medical hx includes insulin dependent diabetes, meningioma, prostate cancer, TIA, CAD with stent placement, HTN, HLD, GERD. Pt was just discharged earlier this week for HTN urgency. ED reports state family could not care for him at home anymore and would like pt to stay so they can get placement in a facility. Pt reportedly had a blood sugar of 44 upon EMS arrival and was given D10 which improved his blood sugar and lethargy. Pt is only alert and oriented to self. He is a poor historian and provides inconsistent history. When asked who gives him his insulin he sometimes states he does and other times states his does. He did have an episode of diarrhea this morning. He does not report any pain. Pt's reports she would like him to go to a assisted facility then have them both go to an assisted living facility. Will consult social media assistant. Subjective/Events-last exam Pt more alert. No complaints. Answers yes and no questions appropriately. NO further episodes of agitation since yesterday now that he is on scheduled risperdal. Objective Exam Vital Signs Vital Signs Date Time Temp Pulse Resp B/P (MAP) Pulse Ox O2 Delivery O2 Flow Rate FiO2 01/31/22 12:12 36.0 78 20 120/58 (78) 92 Nasal Cannula 2.00 Capillary Refill : Less Than 3 Seconds General Appearance: No Apparent Distress, Chronically ill, Obese Respiratory: Lungs Clear, No Respiratory Distress Cardiovascular: Regular Rate, Rhythm, No Murmur Neurologic/Psychiatric: Alert, Other (oriented to person) Results/Procedures Lab Laboratory Tests 01/31/22 05:37 Patient resulted labs reviewed. Imaging: Reviewed Imaging Report Assessment/Plan Assessment and Plan Assess & Plan/Chief Complaint T2DM with hypoglycemia Now resolved Continue Levemir Sliding scale insulin Dementia with behavioral issues Delirium Haldol as needed Xanax as needed SNF declined due to behaviors, DPOA contacted by social work and DPOA agreeable to [facility] placement but DPOA is not a healthcare DPOA so unsure if he will be able to go to [facility] Now that stable and no further aggressive episodes discussed with SW to see if SNF will reconsider if stable another day or so Risperdal Geodon prn Hypokalemia Hypomagnesemia Monitor and replace as needed HTN Continue Lisinopril Hydralazine as needed HLD GERD CAD Meningioma Continue home meds DVT prophylaxis: JOHN Porter MD Jan 31, 2022 1:09 pm
[2022-01-31] MEDS: HYDROcodone/APAP 5 MG/325 MG (LORTAB) TAB PO PRN ×2 (17:18→20:58)
[2022-01-31 19:33] VITALS: BP 139/65
[2022-01-31] MEDS: traZODone 50 MG (DESYREL) TAB PO SCH (20:55)
[2022-02-01 00:37] VITALS: BP 116/58
[2022-02-01] MEDS: ALPRAZolam 0.5 MG (XANAX) TAB PO SCH ×4 (01:13→23:49)
[2022-02-01 04:00] VITALS: BP 122/63
[2022-02-01] MEDS: inSUlin ASPART (NovoLOG) 1 UNIT/0.01 ML (CHARGE PER UNIT) SC SCH ×4 (05:34→19:50)
[2022-02-01 05:51] LABS: BASOPHILS # (AUTO) 0.1 10^3/uL (0.0-0.1); BASOPHILS % (AUTO) 1 % (0-10); EOSINOPHILS # (AUTO) 0.4 10^3/uL (0.0-0.3); EOSINOPHILS % (AUTO) 7 % (0-10); HEMATOCRIT 41 % (40-54); HEMOGLOBIN 13.7 g/dL (13.3-17.7); LYMPHOCYTES % (AUTO) 19 % (12-44); MEAN CORPUSCULAR HEMOGLOBIN 29 pg (25-34); MEAN CORPUSCULAR HGB CONC 33 g/dL (32-36); MEAN CORPUSCULAR VOLUME 89 fL (80-99); MONOCYTES # (AUTO) 0.5 10^3/uL (0.0-1.0); MONOCYTES % (AUTO) 9 % (0-12); NEUTROPHILS # (AUTO) 3.3 10^3/uL (1.8-7.8); NEUTROPHILS % (AUTO) 64 % (42-75); PLATELET COUNT 281 10^3/uL (130-400); WHITE BLOOD COUNT 5.1 10^3/uL (4.3-11.0)
[2022-02-01 06:14] LABS: POTASSIUM 4.1 MMOL/L (3.6-5.0)
[2022-02-01 06:15] LABS: CALCIUM 9.1 MG/DL (8.5-10.1)
[2022-02-01 06:16] LABS: TOTAL PROTEIN 5.6 GM/DL (6.4-8.2)
[2022-02-01 06:18] LABS: BILIRUBIN,TOTAL 0.8 MG/DL (0.1-1.0)
[2022-02-01 06:19] LABS: PHOSPHORUS 3.5 MG/DL (2.3-4.7)
[2022-02-01 06:20] LABS: CREATININE SERUM 1.17 MG/DL (0.60-1.30)
[2022-02-01 06:22] LABS: MAGNESIUM 1.8 MG/DL (1.6-2.4)
[2022-02-01] MEDS: POTASSIUM CL 10MEQ/50ML IVPB 50 ML IV SCH (06:52)
[2022-02-01] MEDS: MAGNESIUM 1 GM/100 ML IVPB 100 ML IV SCH (06:52)
[2022-02-01 08:00] VITALS: BP 148/63
[2022-02-01] MEDS: ASPIRIN 81 MG CHEW (CHILDREN'S ASA) PO SCH (08:18)
[2022-02-01] MEDS: lisINopril 40 MG (PRINIVIL) TABLET PO SCH (08:18)
[2022-02-01] MEDS: risperiDONE 0.5 MG (RisperDAL) TABLET PO SCH ×2 (08:18→19:49)
[2022-02-01] MEDS: PANTOPRAZOLE 40 MG (PROTONIX) TAB PO SCH (08:18)
[2022-02-01] MEDS: HYDROcodone/APAP 5 MG/325 MG (LORTAB) TAB PO PRN ×2 (08:24→19:53)
[2022-02-01] MEDS: guaiFENesin/DM (ROBITUSSIN DM) 10 ML UDC PO PRN (09:22)
--- NOTE | 2022-02-01 10:12 | ST Cognitive Linguistic Eval ---
Speech Evaluation-General Medical Diagnosis Hypoglycemia Onset Date: Jan 25, 2022 Therapy Diagnosis Therapy Diagnosis: Impaired Cognition, Confusion Precautions Precautions: Fall, Pressure Ulcer Precautions/Isolations: Fall Prevention, Standard Precautions, Pressure Ulcer Referral Referring Physician: Dr. Avitia Reason for Referral: Evaluation/Treatment Medical History Pertinent Medical History: CAD, DM, GERD, HTN Current History The patient is a 76 year-old male with a past medical history of diabetes, men ingioma, prostate cancer, TIA, CAD (with stent placement), HTN, HLD, and GERD, who was admitted to [facility] with a diagnosis of hypoglycemia. Reviewed History: Yes Social History Current Living Status: Spouse Speech PLF-Current Status Prior Level of Function The patient's prior level of function is unknown to this clinician following a chart review and discussion with the patient. Subjective The patient was seated upright in his recliner, awake and alert, upon entrance to his room by the clinician. The patient greeted the clinician appropriately and was agreeable to participation in the cognitive linguistic assessment. The patient displays tangential thought processing and communication skills, however, demonstrates great improvement in comparison to the prior evaluation attempts. The patient participates in the assessment and remains cooperative throughout the clinician's time. Language Eval: Auditory Comprehends Simple Yes/No Ques: Functional Indent/Objects Multiple [place]ell: Functional Follows 1-Step Commands: Moderate (The patient's ability to follow directions fluctuates, however, improves with repetition and direct modeling.) Follows General Conversations: Moderate Language Eval: Verbal Language Completes Spontaneous Greeting: Functional Produces Auto, Serial Info: Functional Imitates Simple Words/Phrases: Functional Word Finding: Severe Requests Basic Needs: Moderate States Basic Personal Info: Moderate Cognitive Patient Orientation The patient was oriented to self. The patient was not oriented to location, city, month, day of the week, or year. Objective Cognitive Domain Attention: Moderate Memory: Severe Problem Solving: Severe Composite Severity Rating: Severe Objective Formal/Standardized Tests [facility] Mental Status Exam (UMS) Results The patient demonstrated a result of +3/30 on the SLUMS correlating to a score of "dementia" per protocol. Oral Motor/Speech Production The patient displays a slowed speech pattern, however, dysarthria and apraxia of speech were not present. The patient does remain 100% intelligible in known and unknown contexts. Impression The patient demonstrated confusion on this date, however, does demonstrate improvement in comparison to prior evaluation attempts. The patient remained pleasant and cooperative throughout the assessment. At this time, the patient displays severe impairments in the areas of memory, orientation, and problem solving. Speech Short Term Goals Short Term Goals Short Term Goals 1. The patient will display improved orientation by utilizing orientation strategies discussed and demonstrated throughout skilled treatment. Time Frame-STG: Three Days. Speech Thread Grinder Goals Jail Goals 1. The patient will display improved cognitive linguistic skills for increase safety with discharge to the least restrictive environment. Time Frame: One Week. Speech-Plan Treatment Plan Speech Therapy Treatment Plan: Continue Plan of Care Treatment Duration: Feb 05, 2022 Frequency: 2 times per week Estimated Hrs Per Day: .25 hour per day Rehab Potential: Guarded Barriers to Learning: At this time, the patient's fluctuating confusion and behaviors present as a barrier to learning. If confusion decreases, the patient's rehabilitation potential may improve. Safety Risks/Education Teaching Recipient: Patient Teaching Methods: Discussion Response to Teaching: Unable to Comprehend Education Topics Provided: Results, Recommendations, Plan of Care Time Speech Therapy Time In: 08:24 Speech Therapy Time Out: 08:40 DATE: Feb 01, 2022 Total Billed Time: 16 Billed Treatment Time 1, ARIELA CASTILLO [facility] ST Feb 01, 2022 10:12
--- NOTE | 2022-02-01 10:43 | Physical Therapy Daily Note ---
PT Daily Note-Current Subjective Patient more alert and oriented on this date. Agrees to PT. Pain Section J - Health Conditions 1. Rarely or not at all 2. Occasionally 3. Frequently 4. Almost constantly 8. Unable to answer Pain Effect on Sleep: 8 Pain Interference with Therapy: 8 Pain Interference w/Day-to-Day: 8 Mental Status Patient Orientation: Person Attachments: Oxygen Transfers SCALE: Activities may be completed with or without assistive devices. 4-Dctqfchybu-tbvpgqq completes the activity by him/herself with no assistance from a helper. 5-Set-up or Clean-up Assistance-helper sets up or cleans up; patient completes activity. [place] assists only prior to or following the activity. 4-Supervision or Touching Assistance-helper provides verbal cues and/or touching/steadying and/or contact guard assistance as patient completes activity. Assistance may be provided throughout the activity or intermittently. 3-Partial/Moderate Assistance-helper does LESS THAN HALF the effort. [place] lifts, holds or supports trunk or limbs, but provides less than half the effort. 2-Substantial/Maximal Assistance-helper does MORE THAN HALF the effort. [place] lifts or holds trunk or limbs and provides more than half the effort. 4-Fsoppveve-cwalvq does ALL the effort. Patient does none of the effort to complete the activity. Or, the assistance of 2 or more helpers is required for the patient to complete the activity. If activity was not attempted, code reason: 7-Patient Refused. 9-Not Applicable-not attempted and the patient did not perform the activity before the current illness, exacerbation or injury. 10-Not Attempted due to Environmental Limitations-(lack of equipment, weather restraints, etc.). 88-Not Attempted due to Medical Conditions or Safety Concerns. Sit to Stand (QC): 3 Weight Bearing Right Lower Extremity: Right Full Weight Bearing Left Lower Extremity: Left Full Weight Bearing Gait Training Distance: 80' Walk 10 feet (QC): 3 Walk 50 ft with 2 Turns(QC): 3 Gait Assistive Device: FWW forward lean on FWW with VC's for body placement in FWW Assessment Patient remains up in recliner with chair alarm activated and sitter present. Increase activity as tolerated by patient. PT Short Term Goals Short Term Goals Time Frame: Feb 03, 2022 Roll Left & Right: 6 Sit to lyin Lying to sitting on side of be: 6 Sit to stand: 4 Chair/xpf-gc-lokvk transfer: 4 Walk 10 feet: 4 Walk 50 feet with two turns: 4 Walk 150 feet: 4 PT Plan Treatment/Plan Treatment Plan: Continue Plan of Care Treatment Plan: Bed Mobility, Concurrent Therapy, Education, Functional Activity Bianca, Functional Strength, Gait, Safety, Therapeutic Exercise, Transfers Treatment Duration: Feb 03, 2022 Frequency: 6 times per week Estimated Hrs Per Day: .25 hour per day Patient and/or Family Agrees t: Yes Time Time In: 930 Time Out: 945 DATE: Feb 01, 2022 Total Billed Treatment Time: 15 Total Billed Treatment 1 visit GT 15 min CHRIS FONSECA PT Feb 01, 2022 10:43
[2022-02-01 11:07] VITALS: BP 105/55
--- NOTE | 2022-02-01 15:03 | Progress Note - Hospitalist ---
Subjective HPI/CC On Admission Date Seen by Provider: Feb 01, 2022 Tr is a 76 yo demented male who was admitted for hypoglycemia. Past medical hx includes insulin dependent diabetes, meningioma, prostate cancer, TIA, CAD with stent placement, HTN, HLD, GERD. Pt was just discharged earlier this week for HTN urgency. ED reports state family could not care for him at home anymore and would like pt to stay so they can get placement in a facility. Pt reportedly had a blood sugar of 44 upon EMS arrival and was given D10 which improved his blood sugar and lethargy. Pt is only alert and oriented to self. He is a poor historian and provides inconsistent history. When asked who gives him his insulin he sometimes states he does and other times states his does. He did have an episode of diarrhea this morning. He does not report any pain. Pt's reports she would like him to go to a nursing home facility then have them both go to an assisted living facility. Will consult family welfare social work professor. Subjective/Events-last exam Pt reports doing well told. Does have a headache but hopeful Tylenol will help. Much more alert. very appreciate of care given. Cooperative. Objective Exam Vital Signs Vital Signs Date Time Temp Pulse Resp B/P (MAP) Pulse Ox O2 Delivery O2 Flow Rate FiO2 02/01/22 11:07 36.1 80 20 105/55 (72) 95 Nasal Cannula 2.00 Capillary Refill : Less Than 3 Seconds General Appearance: No Apparent Distress, Chronically ill, Obese Respiratory: Lungs Clear, No Respiratory Distress Cardiovascular: Regular Rate, Rhythm, No Murmur Gastrointestinal: Normal Bowel Sounds, Non Tender, Soft Neurologic/Psychiatric: Alert, Other (oriented to person and place) Results/Procedures Lab Laboratory Tests 02/01/22 05:28 Patient resulted labs reviewed. Imaging: Reviewed Imaging Report Assessment/Plan Assessment and Plan Assess & Plan/Chief Complaint Dementia with behavioral issues Delirium Geodon prn- none need in over 48 hours Xanax as needed SNF declined due to behaviors, DPOA contacted by social work and DPOA agreeable to [facility] placement but DPOA is not a healthcare DPOA so unsure if he will be able to go to [facility] Now that stable and no further aggressive episodes SNF to evaluate in person today for possible admission Risperdal T2DM with hypoglycemia Now resolved Continue Levemir Sliding scale insulin Hypokalemia Hypomagnesemia Monitor and replace as needed HTN Continue Lisinopril Hydralazine as needed HLD GERD CAD Meningioma Continue home meds DVT prophylaxis: JOHN Porter MD Feb 01, 2022 3:03 pm
[2022-02-01 15:22] VITALS: BP 143/98
[2022-02-01 19:43] VITALS: BP 149/68
[2022-02-01] MEDS: traZODone 50 MG (DESYREL) TAB PO SCH (19:48)
--- NOTE | 2022-02-01 20:27 | Discharge Inst-Skilled Nursing ---
Discharge Inst-Skilled NF Chief Complaint Tr is a 76 yo demented male who was admitted for hypoglycemia. Past medical hx includes insulin dependent diabetes, meningioma, prostate cancer, TIA, CAD with stent placement, HTN, HLD, GERD. Pt was just discharged earlier this week for HTN urgency. ED reports state family could not care for him at home anymore and would like pt to stay so they can get placement in a facility. Pt reportedly had a blood sugar of 44 upon EMS arrival and was given D10 which improved his blood sugar and lethargy. Pt is only alert and oriented to self. He is a poor historian and provides inconsistent history. When asked who gives him his insulin he sometimes states he does and other times states his does. He did have an episode of diarrhea this morning. He does not report any pain. Pt's reports she would like him to go to a [facility]ent[facility] facility then have them both go to an assisted living facility. Will consult social welfare clerk. Patient Instructions Patient Problems: Please continue to take your medications as written. Please follow up with your PCP to follow up this hospital stay. Consult/Follow Up/Orders Follow Up Appt.: With ORESTES Diaz in 1 week.P Skilled NF Admit to: Certification (SNF) I certify that SNF services are required to be given on an inpatient basis because of the above named patient's need for penitentiary care on a continui ng basis for the conditions(s) for which he/she was receiving inpatient hospital services prior to his/her transfer to the SNF. Senior Care Facility Order: Nursing Services, Talent Acquisition Lead-Evaluate & Treat, Physical Therapy-Evaluate & Treat, Speech Language-Evaluate & Treat Oxygen Delivery Method: Room Air Discharge Diet: No Restrictions Daily Activity as Tolerated: Yes Resuscitation Status: Full Code New & Resume Previous Orders John Nash Feb 01, 2022 20:25 JOHN NASH MD Feb 01, 2022 20:27
[2022-02-01] MEDS: hydrALAZINE (APESOLINE) 20 MG/ML VIAL IV PRN (23:49)
[2022-02-02] VITALS: BP 179/87
[2022-02-02 03:20] VITALS: BP 183/90
[2022-02-02] MEDS: HYDROcodone/APAP 5 MG/325 MG (LORTAB) TAB PO PRN (03:25)
[2022-02-02] MEDS: guaiFENesin/DM (ROBITUSSIN DM) 10 ML UDC PO PRN (03:31)
[2022-02-02] MEDS: hydrALAZINE (APESOLINE) 20 MG/ML VIAL IV PRN (04:36)
[2022-02-02] MEDS: inSUlin ASPART (NovoLOG) 1 UNIT/0.01 ML (CHARGE PER UNIT) SC SCH ×2 (05:48→11:26)
[2022-02-02 06:23] LABS: BASOPHILS # (AUTO) 0.1 10^3/uL (0.0-0.1); BASOPHILS % (AUTO) 1 % (0-10); EOSINOPHILS # (AUTO) 0.2 10^3/uL (0.0-0.3); EOSINOPHILS % (AUTO) 4 % (0-10); HEMATOCRIT 44 % (40-54); HEMOGLOBIN 14.4 g/dL (13.3-17.7); LYMPHOCYTES # (AUTO) 0.9 10^3/uL (1.0-4.0); LYMPHOCYTES % (AUTO) 16 % (12-44); MEAN CORPUSCULAR HEMOGLOBIN 29 pg (25-34); MEAN CORPUSCULAR HGB CONC 33 g/dL (32-36); MEAN CORPUSCULAR VOLUME 87 fL (80-99); MEAN PLATELET VOLUME 10.1 fL (9.0-12.2); MONOCYTES # (AUTO) 0.6 10^3/uL (0.0-1.0); MONOCYTES % (AUTO) 10 % (0-12); NEUTROPHILS # (AUTO) 3.8 10^3/uL (1.8-7.8); NEUTROPHILS % (AUTO) 69 % (42-75); PLATELET COUNT 286 10^3/uL (130-400); WHITE BLOOD COUNT 5.6 10^3/uL (4.3-11.0)
[2022-02-02 06:48] LABS: ALBUMIN 3.2 GM/DL (3.2-4.5); BILIRUBIN,TOTAL 0.7 MG/DL (0.1-1.0); CALCIUM 9.4 MG/DL (8.5-10.1); CREATININE SERUM 1.13 MG/DL (0.60-1.30); MAGNESIUM 1.6 MG/DL (1.6-2.4); PHOSPHORUS 2.6 MG/DL (2.3-4.7); POTASSIUM 4.3 MMOL/L (3.6-5.0); TOTAL PROTEIN 5.8 GM/DL (6.4-8.2)
[2022-02-02] MEDS: POTASSIUM CL 10MEQ/50ML IVPB 50 ML IV SCH (07:37)
[2022-02-02] MEDS: MAGNESIUM 1 GM/100 ML IVPB 100 ML IV SCH ×3 (07:39→09:34)
[2022-02-02 08:11] VITALS: BP 107/66
[2022-02-02] MEDS: lisINopril 40 MG (PRINIVIL) TABLET PO SCH (08:29)
[2022-02-02] MEDS: risperiDONE 0.5 MG (RisperDAL) TABLET PO SCH (08:29)
[2022-02-02] MEDS: ASPIRIN 81 MG CHEW (CHILDREN'S ASA) PO SCH (08:29)
[2022-02-02] MEDS: PANTOPRAZOLE 40 MG (PROTONIX) TAB PO SCH (08:29)
[2022-02-02] MEDS: ALPRAZolam 0.5 MG (XANAX) TAB PO SCH ×2 (08:30→12:41)
--- NOTE | 2022-02-02 08:57 | Speech Therapy Daily Note ---
Speech Daily Progress Note Subjective Date Seen by Provider: Feb 02, 2022 Time Seen by Provider: 08:33 The patient was lying in bed, awake, upon entrance to the room by the clinician. The patient greeted the clinician appropriately and was agreeable to participation in the cognitive treatment session. Objective The patient remained pleasant and cooperative throughout the treatment session. While the patient does remain confused, the patient did not display agitative behaviors towards the clinician. The patient participated in structured conversation and exercises focused on orientation skills. The patient was oriented to self and year. The patient was not oriented to month or location and unable to identify either item with verbal cues from the clinician. Orientation information was written on the in-room white board and the clinician discussed and demonstrated with the patient where to locate the information throughout his time at the hospital. At the close of the session, the patient was able to state his name, his current location, and the year. The patient was able to follow simple one-step commands with 100% accuracy and respond appropriately to simple yes and no questions. The patient has displayed steady cognitive improvement throughout his time with speech pathology. Assessment Assessment Current Status: Good Progress Treatment Plan Continue Plan of Care Speech Short Term Goals Short Term Goals Short Term Goals 1. The patient will display improved orientation by utilizing orientation strategies discussed and demonstrated throughout skilled treatment. Time Frame-STG: Three Days. Speech Logging Supervisor Goals Fpc Goals 1. The patient will display improved cognitive linguistic skills for increase safety with discharge to the least restrictive environment. Time Frame: One Week. Speech-Plan Treatment Plan Speech Therapy Treatment Plan: Continue Plan of Care Treatment Duration: Feb 05, 2022 Frequency: 2 times per week Estimated Hrs Per Day: .25 hour per day Rehab Potential: Guarded Safety Risks/Education Teaching Recipient: Patient Teaching Methods: Demonstration, Discussion Response to Teaching: Return Demonstration, Reinforcement Needed Education Topics Provided: Orientation Strategies Discharge Recommendations Post Acute ST Time Speech Therapy Time In: 08:33 Speech Therapy Time Out: 08:48 DATE: Feb 02, 2022 Total Billed Time: 15 Billed Treatment Time [address] [facility] Feb 02, 2022 08:57
[2022-02-02] MEDS ORDERED: TRZ50T PO (10:40)
[2022-02-02] MEDS ORDERED: METF-399 PO (10:40)
[2022-02-02] MEDS ORDERED: BUDE10.26 INH (10:40)
[2022-02-02] MEDS ORDERED: ACET-2267 PO (10:40)
[2022-02-02] MEDS ORDERED: ASPI-1238 PO (10:40)
[2022-02-02] MEDS ORDERED: EMPA10TA PO (10:40)
[2022-02-02] MEDS ORDERED: MIRA50TA PO (10:40)
[2022-02-02] MEDS ORDERED: INSU100V5 SQ (10:40)
[2022-02-02] MEDS ORDERED: FLUT16SP22 NSEACH (10:40)
[2022-02-02] MEDS ORDERED: PANT40TA52 PO (10:40)
[2022-02-02] MEDS ORDERED: ACHD5005 PO (10:40)
[2022-02-02] MEDS ORDERED: LISI40TA9 PO (10:40)
[2022-02-02] MEDS ORDERED: RISP0.5T65 PO (10:40)
[2022-02-02] MEDS ORDERED: ESCI-2 PO (10:40)
[2022-02-02] MEDS ORDERED: ATOR40TA70 PO (10:40)
[2022-02-02] MEDS ORDERED: LEVE750T5 PO (10:40)
[2022-02-02] MEDS ORDERED: ALPR0.5T7 PO (10:40)
[2022-02-02] MEDS ORDERED: IBUP-2473 PO (10:40)
--- NOTE | 2022-02-02 10:42 | Discharge Summary ---
Diagnosis/Chief Complaint Date of Admission Jan 25, 2022 at 00:12 Date of Discharge Discharge Date: Feb 02, 2022 Admission Diagnosis Primary Care Adryan Oconnell Discharge Diagnosis (1) Dementia Status: Acute (2) Delirium Status: Acute (3) T2DM (type 2 diabetes mellitus) Status: Acute (4) HTN (hypertension) Status: Acute (5) Meningioma, cerebral Status: Chronic Discharge Summary Discharge Physical Exam Allergies: Coded Allergies: meperidine (Verified Allergy, Severe, Mental Confusion, 07/16/18) Vitals & I&Os Vital Signs Date Time Temp Pulse Resp B/P (MAP) Pulse Ox O2 Delivery O2 Flow Rate FiO2 02/02/22 13:40 36.4 90 18 105/62 96 Room Air 02/01/22 11:07 2.00 General Appearance: No Apparent Distress, Chronically ill, Obese Respiratory: Lungs Clear, No Respiratory Distress Cardiovascular: Regular Rate, Rhythm Neurologic/Psychiatric: Alert, Disoriented Hospital Course Patient was admitted to the hospital secondary to hypoglycemia likely due to inadvertent insulin overdose. This resolved without issue. He did have some behavioral issues due to his dementia but after being started on scheduled Risperdal did much better. He was quite cooperative though remained confused. After discussions with his and his DPOA they elected to pursue senior living placement. He was discharged in stable and improved condition to [facility] in [place]. Labs (last 24 hrs) Microbiology 01/25/22 MRSA Screen - Final, Complete MRSA not isolated Patient resulted labs reviewed. Pending Labs Imaging: Reviewed Imaging Report Discussion & Recommendations Discharge Planning: >30 minutes discharge planning Discharge Home Medications: Active Scripts Active Levemir (Insulin Determir) 100 Unit/Ml Soln 15 Unit SQ DAILY Risperidone 0.5 Mg Tablet 0.5 Mg PO BID HYDROcodone/APAP 5 MG/325 MG TAB (Acetaminophen/Hydrocodone Bitart) 1 Tab Tab 1 Ea PO Q4H PRN Lisinopril 40 Mg Tablet 40 Mg PO DAILY Tylenol Extra Strength (Acetaminophen) 500 Mg Tablet 1,000 Mg PO Q8H PRN Ibuprofen 200 Mg Tablet 400-600 Mg PO Q8H PRN Aspirin EC (Aspirin) 81 Mg Tablet.dr 162 Mg PO DAILY TAKES 2 (81MG) TABS Myrbetriq (Mirabegron) 50 Mg Tab.er.24h 50 Mg PO DAILY Atorvastatin Calcium 40 Mg Tablet 40 Mg PO HS Fluticasone Propionate 50 Mcg/Actuation Yarnell.susp 1 Yarnell NSEACH DAILY Budesonide-Formoterol 160-4.5 (Budesonide/Formoterol Fumarate) 160 Mcg-4.5 Mcg/Actuation Hfa.aer.ad 2 Puff INH BID Alprazolam 0.5 Mg Tablet 0.5 Mg PO TID PRN Escitalopram Oxalate 10 Mg Tablet 10 Mg PO 1900 TAKES AFTER SUPPER Jardiance (Empagliflozin) 10 Mg Tablet 10 Mg PO DAILY Trazodone HCl 50 Mg Tablet 75 Mg PO HS TAKES 1.5 (50MG) TABS Levetiracetam 750 Mg Tablet 750 Mg PO BID Metformin HCl 1,000 Mg Tablet 1,000 Mg PO BID Pantoprazole Sodium 40 Mg Tablet.dr 40 Mg PO DAILY Instructions to patient/family Please see electronic discharge instructions given to patient. Problem Qualifiers (1) Dementia: Dementia behavioral or psychological symptom: with agitation (2) T2DM (type 2 diabetes mellitus): Diabetes mellitus emt intermediate insulin use: with emt intermediate use Diabetes mellitus complication status: with hypoglycemia Diabetes mellitus complication detail: without coma Qualified Codes: E11.649 - Type 2 diabetes mellitus with hypoglycemia without coma; Z79.4 - skilled nursing (current) use of insulin (3) HTN (hypertension): Hypertension type: unspecified Qualified Codes: I10 - Essential (primary) hypertension JOHN CESAR MD Feb 02, 2022 10:42
[2022-02-02 11:30] VITALS: BP 105/62
[2022-02-02] MEDS ORDERED: FLU QUAD HIGH DOSE 240 MCG/0.7 ML 2022-23 (FLUZONE) IM ONE (12:15)
[2022-02-02] MEDS ORDERED: FLU QUADRIvalent (6 months+) 60 mcg/0.5 ml 2022-23 (Fluzone) IM ONE (12:15)
[2022-02-02 13:40] VITALS: BP 105/62
== END 2022-02-02 13:40 | DRG 918 ==
LOC: EDUNIT# 22:06 → ER 22:07 → ICU 01-25 00:12 → 4TH 01-27 15:10
PROVIDERS: ADMIT Internal Medicine; ATTEND Internal Medicine
DX: T38.3X1A Poisoning by insulin and oral hypoglycemic [antidiabetic] drugs, accidental (unintentional), initial encounter (principal); F03.918 Unspecified dementia, unspecified severity, with other behavioral disturbance; R41.0 Disorientation, unspecified; E11.649 Type 2 diabetes mellitus with hypoglycemia without coma; E11.9 Type 2 diabetes mellitus without complications; I10 Essential (primary) hypertension; D32.0 Benign neoplasm of cerebral meninges; Z79.4 Long term (current) use of insulin; Z79.899 Other long term (current) drug therapy; Z79.84 Long term (current) use of oral hypoglycemic drugs; Z79.82 Long term (current) use of aspirin; Z87.891 Personal history of nicotine dependence; Z95.5 Presence of coronary angioplasty implant and graft; I25.2 Old myocardial infarction; E78.00 Pure hypercholesterolemia, unspecified; G43.909 Migraine, unspecified, not intractable, without status migrainosus; K21.9 Gastro-esophageal reflux disease without esophagitis; M19.90 Unspecified osteoarthritis, unspecified site; Z85.46 Personal history of malignant neoplasm of prostate; Z85.828 Personal history of other malignant neoplasm of skin; Z92.3 Personal history of irradiation; Z20.822 Contact with and (suspected) exposure to COVID-19; E87.6 Hypokalemia; I25.10 Atherosclerotic heart disease of native coronary artery without angina pectoris; R19.7 Diarrhea, unspecified; E83.42 Hypomagnesemia; Z86.73 Personal history of transient ischemic attack (TIA), and cerebral infarction without residual deficits
CPT/HCPCS: 36415; 71045; 80053; 81000; 82947; 83735; 84100; 84132; 85025; 87081; 87636; 90662; 94760; 96360; 96361

== ENCOUNTER 2022-03-06 14:33 | Outpatient (RCR) | payer MEDICARE, MEDICAID ==
[~2022-03-06 14:33] MED LIST changes: +LEUPROLIDE 22.5 MG SYRINGE (ELIGARD) SQ SCH
== END 2022-04-03 | disposition home or self-care (01) ==
LOC: ONC 14:33
PROVIDERS: ATTEND Internal Medicine Hematology & Oncology
DX: C61 Malignant neoplasm of prostate (principal); I10 Essential (primary) hypertension; E11.9 Type 2 diabetes mellitus without complications; E66.9 Obesity, unspecified; I25.10 Atherosclerotic heart disease of native coronary artery without angina pectoris
CPT/HCPCS: 99204

== ENCOUNTER → 2022-03-06 | Outpatient (CLI) | payer MEDICARE, MEDICAID ==
[~2022-03-06] MED LIST changes: +ACHD5005 PO; +INSU100V5 SQ; +LISI40TA9 PO; +RISP0.5T65 PO
== END ==
LOC: LABNPT 15:21
PROVIDERS: ATTEND Internal Medicine Hematology & Oncology
DX: C61 Malignant neoplasm of prostate (principal)
CPT/HCPCS: 84153